=== PATIENT | female | born 1955 | race Two or more races ===

== ENCOUNTER 2019-12-05 09:54 | Outpatient (REF) | payer OTHER, SELFPAY | END 2019-12-05 09:55 | disposition home or self-care (01) | LOC: HO.LAB 09:54 | PROVIDERS: PCP Internal Medicine Geriatric Medicine; Visit Provider Internal Medicine | DX: Z20.828 Contact with and (suspected) exposure to other viral communicable diseases (principal) | CPT/HCPCS: 36415; 87635 ==

== ENCOUNTER 2019-12-19 09:42 | Outpatient (REF) | payer OTHER, SELFPAY | END 2019-12-19 09:43 | disposition home or self-care (01) | LOC: HO.LAB 09:42 | PROVIDERS: PCP Internal Medicine Geriatric Medicine; Visit Provider Internal Medicine | DX: Z20.828 Contact with and (suspected) exposure to other viral communicable diseases (principal) | CPT/HCPCS: 87635 ==

== ENCOUNTER 2019-12-21 08:53 | Outpatient (REF) | payer OTHER, SELFPAY ==
--- NOTE | 2019-12-21 09:09 | XR_ITS ---
EXAMINATION: XR knee standing BI, XR knee LT 2V CLINICAL INFORMATION: Reason for Exam M25.562 - Pain in left knee COMPARISON: None available at the time of this dictation. TECHNIQUE: Bilateral frontal standing, Left lateral and patella sunrise view. FINDINGS: BONES: No fracture or dislocation is present. JOINTS: Narrowing of joint spaces and developed osteophytes from the edges of articular surfaces suggest degenerative osteoarthritis. SOFT TISSUE: Normal IMPRESSION: Mild to moderate bilateral degenerative osteoarthritis involving symmetrically medial and lateral compartments right and left knee. No significant knee joint effusion.
--- NOTE | 2019-12-21 09:11 | CT_ITS ---
EXAMINATION: CT ABDOMEN AND PELVIS WITHOUT CONTRAST CLINICAL INFORMATION: Epigastric pain. COMPARISON: CT abdomen and pelvis 09/11/2014. TECHNIQUE: Multidetector volumetric imaging was performed from the superior aspect of the liver through the pubic symphysis. Sagittal and coronal reformatted images were obtained on the technologist's workstation. Patient refused IV contrast. This CT examination was performed using dose optimization techniques as appropriate, variously including the following: *Automated exposure control *Adjustment of mA and/or kV according to patient size (this includes techniques or standardized protocols for targeted exams where dose is matched to indication/reason for exam; i.e. extremities or head) *Use of iterative reconstruction technique DLP: 359 mGy-cm. FINDINGS: LUNG BASES: The lungs are well expanded and clear except for minimal atelectatic changes in the lingula. Heart size is normal.. LIVER, GALLBLADDER, AND BILIARY TREE: The liver is normal in size, shape, and attenuation. No focal hepatic lesion or biliary ductal dilatation is present. The gallbladder has been surgically removed. PANCREAS: The pancreas is homogeneous in density, size. There is linear calcification seen in the body of pancreas, likely vascular. SPLEEN: Unremarkable. ADRENAL GLANDS: Unremarkable. KIDNEYS AND URETERS: The kidneys are normal in size, shape, and attenuation. No hydronephrosis, hydroureter, or calculi seen. No perinephric stranding. BLADDER: Unremarkable. GASTROINTESTINAL TRACT: There is scattered stool and oral contrast seen throughout the colon without any significant distention. The small bowel loops are normal caliber. No free air or free fluid. ABDOMINAL WALL: No significant hernia is appreciated. LYMPH NODES: Normal. VASCULAR: Unremarkable. PELVIC VISCERA: No free air or free fluid seen. There is bilateral heterogeneous-appearing subcutaneous fat in both buttocks, likely from repeated insulin injections and resulting granulation tissue and calcification. OSSEOUS STRUCTURES: There are degenerative disc changes with vacuum disc phenomena at L5-S1 disc level. CT/CT abdomen pelvis wo con IMPRESSION: Mild constipation. No acute process seen. Liver evaluation is limited due to refusal of IV contrast by patient.
[2019-12-21 11:21] LABS: Blood Urea Nitrogen 15 mg/dL (9-16); Estimated Glomerular Filt Rate > 60
[2019-12-21] MEDS: Barium Sulfate Oral (Vanilla) 450 ML ORAL.SUSP 900 ML PO (11:58)
== END 2019-12-21 08:54 | disposition home or self-care (01) ==
LOC: HO.CT 08:53
PROVIDERS: PCP Internal Medicine Geriatric Medicine; Visit Provider Internal Medicine Gastroenterology
DX: R10.13 Epigastric pain (principal); M25.562 Pain in left knee; Z87.891 Personal history of nicotine dependence
CPT/HCPCS: 20610; 73560; 73565; 74176; 82565; 84520; 99204; J1040

== ENCOUNTER → 2019-12-22 10:10 | Outpatient (BNVA) | payer OTHER, SELFPAY | PROVIDERS: PCP Internal Medicine Geriatric Medicine; Visit Provider Hospitalist | DX: J45.41 Moderate persistent asthma with (acute) exacerbation (principal); J06.9 Acute upper respiratory infection, unspecified; K21.00 Gastro-esophageal reflux disease with esophagitis, without bleeding; Z79.899 Other long term (current) drug therapy | CPT/HCPCS: 99214 ==

== ENCOUNTER 2019-12-24 10:48 | Outpatient (REF) | payer OTHER, SELFPAY | END 2019-12-24 10:49 | disposition home or self-care (01) | LOC: HO.LAB 10:48 | PROVIDERS: Visit Provider Internal Medicine | DX: Z20.828 Contact with and (suspected) exposure to other viral communicable diseases (principal) | CPT/HCPCS: 87635 ==

== ENCOUNTER 2020-01-25 07:03 | Day surgery (SDC) | payer OTHER, SELFPAY ==
[2019-12-14 11:01] VITALS: BMI 23.3
[2020-01-18 19:22] VITALS: BMI 23.3
--- NOTE | 2020-01-24 09:29 | HO.ANESPROP2 ---
Documented by User: Melody Lundberg 01/24/20 09:30 HPI - Anesthesia Eval Consult details Narrative: 64yo F for Upper Endoscopy and Colonoscopy PMFSH Past Medical History Medical History Allergic rhinitis Anxiety Asthma Cervicalgia Chronic pain of left knee Depression Fibromyalgia GERD (gastroesophageal reflux disease) History of anesthesia problem History of vertigo Migraine Osteoarthritis URI (upper respiratory infection) Varicose vein of leg Family History Family History Father No problems noted. Surgical History Surgical History H/O varicose vein ligation and stripping Hx laparoscopic cholecystectomy Hx of appendectomy Hx of bilateral breast reduction surgery Hx of colonoscopy Hx of hemorrhoidectomy Hx of hysterectomy Status post right rotator cuff repair Social History Social History Alcohol intake: never Smoking Status: Former smoker Smoking Quit Date: > 35 yrs ago Use of substances other than those prescribed or required for medical reasons: No Advance Directives: Yes Advance Directives Information Provided: Yes Advance Directives on File: Yes Advance Directives Date on File: 04/03/18 Current occupational status: unemployed 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 occupation: Left Handed Meds Allergies Allergy/AdvReac Type Severity Reaction Status Date / Time ciprofloxacin [From Cipro] Allergy Intermediate HIVES/ITCHI Verified 01/25/20 07:17 NG oxycodone [Percocet] Allergy Intermediate Hives Verified 01/25/20 07:17 Penicillins Allergy Intermediate HIVES/ITCHI Verified 01/25/20 07:17 NG simvastatin [Simvastatin] Allergy Intermediate HIVES/ITCHI Verified 01/25/20 07:17 NIG vancomycin [Vancomycin] Allergy Intermediate HIVES/ITCHI Verified 01/25/20 07:17 NG latex Allergy Mild Rash Verified 01/25/20 07:17 milnacipran [From Savella] Allergy Mild Hives Verified 01/25/20 07:17 Sulfa (Sulfonamide Allergy Mild Shortness Verified 01/25/20 07:17 Antibiotics) of Breath Home Medications Medication Instructions Recorded Confirmed Type albuterol sulfate 1 vial INHALATION Q6H PRN 12/14/19 12/22/19 History albuterol sulfate 2 puff PO Q4H PRN 12/14/19 12/22/19 History budesonide 1 vial INHALATION DAILY 12/14/19 12/22/19 History cetirizine 1 tab PO DAILY 12/14/19 12/22/19 History cholecalciferol (vitamin D3) 1 tab PO DAILY 12/14/19 12/22/19 History dupilumab [Dupixent Syringe] 130 mg SUBCUT QWEEK 12/14/19 12/22/19 History epinephrine [EpiPen 2-Jeremi] IM DIRECTED 12/14/19 12/22/19 History esomeprazole magnesium 2 cap PO DAILY 12/14/19 12/22/19 History hydrochlorothiazide 1 cap PO DAILY 12/14/19 12/22/19 History ketotifen fumarate 1 drp OPHTHALMIC (EYE) BID PRN 12/14/19 12/22/19 History levalbuterol tartrate 2 puff INHALATION Q4H PRN 12/14/19 12/22/19 History lorazepam 1 tab PO BID 12/14/19 12/22/19 History metronidazole 1 tab PO TID 12/14/19 12/22/19 History mometasone-formoterol [Dulera] 2 puff INHALATION BID 12/14/19 12/22/19 History montelukast 1 tab PO DAILY 12/14/19 12/22/19 History sucralfate 10 ml PO BID 12/14/19 12/22/19 History sumatriptan succinate [Imitrex] 50 mg PO Q2-4H PRN 12/14/19 12/22/19 History tiotropium bromide [Spiriva 2 puff PO DAILY 12/14/19 12/22/19 History Respimat] umeclidinium [Incruse Ellipta] INHALATION 12/14/19 12/22/19 History valsartan 1 tab PO BID 12/14/19 12/22/19 History Exam Exam Date and Time: January 24, 2020 09 Height,Weight and Vital Signs: Height 5 ft 3 in Weight 59.874 kg Assessment and Plan Assessment Anesthesia Assessment: Chart Reviewed Documented by User: Mecca Harrington 01/25/20 07:21 [facility] Past Medical History Medical History Allergic rhinitis Anxiety Asthma Cervicalgia Chronic pain of left knee Depression Fibromyalgia GERD (gastroesophageal reflux disease) History of anesthesia problem History of vertigo Migraine Osteoarthritis URI (upper respiratory infection) Varicose vein of leg Family History Family History Father No problems noted. Surgical History Surgical History H/O varicose vein ligation and stripping Hx laparoscopic cholecystectomy Hx of appendectomy Hx of bilateral breast reduction surgery Hx of colonoscopy Hx of hemorrhoidectomy Hx of hysterectomy Status post right rotator cuff repair Social History Social History Alcohol intake: never Smoking Status: Former smoker Smoking Quit Date: > 35 yrs ago Use of substances other than those prescribed or required for medical reasons: No Advance Directives: Yes Advance Directives Information Provided: Yes Advance Directives on File: Yes Advance Directives Date on File: 04/03/18 Current occupational status: unemployed 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 occupation: Left Handed Meds Allergies Allergy/AdvReac Type Severity Reaction Status Date / Time ciprofloxacin [From Cipro] Allergy Intermediate HIVES/ITCHI Verified 01/25/20 07:17 NG oxycodone [Percocet] Allergy Intermediate Hives Verified 01/25/20 07:17 Penicillins Allergy Intermediate HIVES/ITCHI Verified 01/25/20 07:17 NG simvastatin [Simvastatin] Allergy Intermediate HIVES/ITCHI Verified 01/25/20 07:17 NIG vancomycin [Vancomycin] Allergy Intermediate HIVES/ITCHI Verified 01/25/20 07:17 NG latex Allergy Mild Rash Verified 01/25/20 07:17 milnacipran [From Savella] Allergy Mild Hives Verified 01/25/20 07:17 Sulfa (Sulfonamide Allergy Mild Shortness Verified 01/25/20 07:17 Antibiotics) of Breath Home Medications Medication Instructions Recorded Confirmed Type albuterol sulfate 1 vial INHALATION Q6H PRN 12/14/19 12/22/19 History albuterol sulfate 2 puff PO Q4H PRN 12/14/19 12/22/19 History budesonide 1 vial INHALATION DAILY 12/14/19 12/22/19 History cetirizine 1 tab PO DAILY 12/14/19 12/22/19 History cholecalciferol (vitamin D3) 1 tab PO DAILY 12/14/19 12/22/19 History dupilumab [Dupixent Syringe] 130 mg SUBCUT QWEEK 12/14/19 12/22/19 History epinephrine [EpiPen 2-Jeremi] IM DIRECTED 12/14/19 12/22/19 History esomeprazole magnesium 2 cap PO DAILY 12/14/19 12/22/19 History hydrochlorothiazide 1 cap PO DAILY 12/14/19 12/22/19 History ketotifen fumarate 1 drp OPHTHALMIC (EYE) BID PRN 12/14/19 12/22/19 History levalbuterol tartrate 2 puff INHALATION Q4H PRN 12/14/19 12/22/19 History lorazepam 1 tab PO BID 12/14/19 12/22/19 History metronidazole 1 tab PO TID 12/14/19 12/22/19 History mometasone-formoterol [Dulera] 2 puff INHALATION BID 12/14/19 12/22/19 History montelukast 1 tab PO DAILY 12/14/19 12/22/19 History sucralfate 10 ml PO BID 12/14/19 12/22/19 History sumatriptan succinate [Imitrex] 50 mg PO Q2-4H PRN 12/14/19 12/22/19 History tiotropium bromide [Spiriva 2 puff PO DAILY 12/14/19 12/22/19 History Respimat] umeclidinium [Incruse Ellipta] INHALATION 12/14/19 12/22/19 History valsartan 1 tab PO BID 12/14/19 12/22/19 History
[2020-01-25 07:21] VITALS: BP 113/73; PULSE 79; RESP 16; TEMP 36.8; O2SAT 96
--- NOTE | 2020-01-25 07:39 | P.CONAN_ITS ---
[facility] Past Medical History Medical History Allergic rhinitis Anxiety Asthma Cervicalgia Chronic pain of left knee Depression Fibromyalgia GERD (gastroesophageal reflux disease) History of anesthesia problem History of vertigo Migraine Osteoarthritis URI (upper respiratory infection) Varicose vein of leg Family History Family History Father No problems noted. Surgical History Surgical History H/O varicose vein ligation and stripping Hx laparoscopic cholecystectomy Hx of appendectomy Hx of bilateral breast reduction surgery Hx of colonoscopy Hx of hemorrhoidectomy Hx of hysterectomy Status post right rotator cuff repair Social History Social History Alcohol intake: never Smoking Status: Former smoker Smoking Quit Date: > 35 yrs ago Use of substances other than those prescribed or required for medical reasons: No Advance Directives: Yes Advance Directives Information Provided: Yes Advance Directives on File: Yes Advance Directives Date on File: 04/03/18 Current occupational status: unemployed Current occupation: Left [employer]ed Meds Allergies Allergy/AdvReac Type Severity Reaction Status Date / Time ciprofloxacin [From Cipro] Allergy Intermediate HIVES/ITCHI Verified 01/25/20 07:17 NG oxycodone [Percocet] Allergy Intermediate Hives Verified 01/25/20 07:17 Penicillins Allergy Intermediate HIVES/ITCHI Verified 01/25/20 07:17 NG simvastatin [Simvastatin] Allergy Intermediate HIVES/ITCHI Verified 01/25/20 07:17 NIG vancomycin [Vancomycin] Allergy Intermediate HIVES/ITCHI Verified 01/25/20 07:17 NG latex Allergy Mild Rash Verified 01/25/20 07:17 milnacipran [From Savella] Allergy Mild Hives Verified 01/25/20 07:17 Sulfa (Sulfonamide Allergy Mild Shortness Verified 01/25/20 07:17 Antibiotics) of Breath Home Medications Medication Instructions Recorded Confirmed Type albuterol sulfate 1 vial INHALATION Q6H PRN 12/14/19 12/22/19 History albuterol sulfate 2 puff PO Q4H PRN 12/14/19 12/22/19 History budesonide 1 vial INHALATION DAILY 12/14/19 12/22/19 History cetirizine 1 tab PO DAILY 12/14/19 12/22/19 History cholecalciferol (vitamin D3) 1 tab PO DAILY 12/14/19 12/22/19 History dupilumab [Dupixent Syringe] 130 mg SUBCUT QWEEK 12/14/19 12/22/19 History epinephrine [EpiPen 2-Jeremi] IM DIRECTED 12/14/19 12/22/19 History esomeprazole magnesium 2 cap PO DAILY 12/14/19 12/22/19 History hydrochlorothiazide 1 cap PO DAILY 12/14/19 12/22/19 History ketotifen fumarate 1 drp OPHTHALMIC (EYE) BID PRN 12/14/19 12/22/19 History levalbuterol tartrate 2 puff INHALATION Q4H PRN 12/14/19 12/22/19 History lorazepam 1 tab PO BID 12/14/19 12/22/19 History metronidazole 1 tab PO TID 12/14/19 12/22/19 History mometasone-formoterol [Dulera] 2 puff INHALATION BID 12/14/19 12/22/19 History montelukast 1 tab PO DAILY 12/14/19 12/22/19 History sucralfate 10 ml PO BID 12/14/19 12/22/19 History sumatriptan succinate [Imitrex] 50 mg PO Q2-4H PRN 12/14/19 12/22/19 History tiotropium bromide [Spiriva 2 puff PO DAILY 12/14/19 12/22/19 History Respimat] umeclidinium [Incruse Ellipta] INHALATION 12/14/19 12/22/19 History valsartan 1 tab PO BID 12/14/19 12/22/19 History Exam Exam Date and Time: January 25, 2020 0739 Height,Weight and Vital Signs: Height 5 ft 3 in Weight 59.874 kg Airway Mallampati Class: II TM Dist: >3cm Neck ROM: Full Heart: RRR Lungs: CTA
--- NOTE | 2020-01-25 07:40 | P.CONAN_ITS ---
[facility] Past Medical History Medical History Allergic rhinitis Anxiety Asthma Cervicalgia Chronic pain of left knee Depression Fibromyalgia GERD (gastroesophageal reflux disease) History of anesthesia problem History of vertigo Migraine Osteoarthritis URI (upper respiratory infection) Varicose vein of leg Family History Family History Father No problems noted. Surgical History Surgical History H/O varicose vein ligation and stripping Hx laparoscopic cholecystectomy Hx of appendectomy Hx of bilateral breast reduction surgery Hx of colonoscopy Hx of hemorrhoidectomy Hx of hysterectomy Status post right rotator cuff repair Social History Social History Alcohol intake: never Smoking Status: Former smoker Smoking Quit Date: > 35 yrs ago Use of substances other than those prescribed or required for medical reasons: No Advance Directives: Yes Advance Directives Information Provided: Yes Advance Directives on File: Yes Advance Directives Date on File: 04/03/18 Current occupational status: unemployed Current occupation: Left [employer]ed Meds Allergies Allergy/AdvReac Type Severity Reaction Status Date / Time ciprofloxacin [From Cipro] Allergy Intermediate HIVES/ITCHI Verified 01/25/20 07:17 NG oxycodone [Percocet] Allergy Intermediate Hives Verified 01/25/20 07:17 Penicillins Allergy Intermediate HIVES/ITCHI Verified 01/25/20 07:17 NG simvastatin [Simvastatin] Allergy Intermediate HIVES/ITCHI Verified 01/25/20 07:17 NIG vancomycin [Vancomycin] Allergy Intermediate HIVES/ITCHI Verified 01/25/20 07:17 NG latex Allergy Mild Rash Verified 01/25/20 07:17 milnacipran [From Savella] Allergy Mild Hives Verified 01/25/20 07:17 Sulfa (Sulfonamide Allergy Mild Shortness Verified 01/25/20 07:17 Antibiotics) of Breath Home Medications Medication Instructions Recorded Confirmed Type albuterol sulfate 1 vial INHALATION Q6H PRN 12/14/19 12/22/19 History albuterol sulfate 2 puff PO Q4H PRN 12/14/19 12/22/19 History budesonide 1 vial INHALATION DAILY 12/14/19 12/22/19 History cetirizine 1 tab PO DAILY 12/14/19 12/22/19 History cholecalciferol (vitamin D3) 1 tab PO DAILY 12/14/19 12/22/19 History dupilumab [Dupixent Syringe] 130 mg SUBCUT QWEEK 12/14/19 12/22/19 History epinephrine [EpiPen 2-Jeremi] IM DIRECTED 12/14/19 12/22/19 History esomeprazole magnesium 2 cap PO DAILY 12/14/19 12/22/19 History hydrochlorothiazide 1 cap PO DAILY 12/14/19 12/22/19 History ketotifen fumarate 1 drp OPHTHALMIC (EYE) BID PRN 12/14/19 12/22/19 History levalbuterol tartrate 2 puff INHALATION Q4H PRN 12/14/19 12/22/19 History lorazepam 1 tab PO BID 12/14/19 12/22/19 History metronidazole 1 tab PO TID 12/14/19 12/22/19 History mometasone-formoterol [Dulera] 2 puff INHALATION BID 12/14/19 12/22/19 History montelukast 1 tab PO DAILY 12/14/19 12/22/19 History sucralfate 10 ml PO BID 12/14/19 12/22/19 History sumatriptan succinate [Imitrex] 50 mg PO Q2-4H PRN 12/14/19 12/22/19 History tiotropium bromide [Spiriva 2 puff PO DAILY 12/14/19 12/22/19 History Respimat] umeclidinium [Incruse Ellipta] INHALATION 12/14/19 12/22/19 History valsartan 1 tab PO BID 12/14/19 12/22/19 History Exam Exam Date and Time: January 25, 2020 0740 Height,Weight and Vital Signs: Height 5 ft 3 in Weight 59.874 kg Assessment and Plan Assessment Anesthesia Assessment: Anesthesia Plan Discussed and Chart Reviewed Final Anesthetic Review NPO: Yes ASA Class: II Final Preanesthetic Review: No Changes in Pt Med Stat, Meds/Allgs Chart Reviewed, Consent Obtained/Reviewed and Anes Risks/Benef Reviewed Patient Risk: Low Procedure Risk: Low Anesthetic Plan Anesthetic Plan: MAC: Disposition: Standard PACU
[2020-01-25] MEDS: Lactated Ringers 1,000 ML 100 ML IVCONT (07:48)
--- NOTE | 2020-01-25 08:17 | MHC.SHP ---
Pre-Procedural Eval Section B Chief Complaint: EPIGASTRIC PAIN,DYSPHAGIA,SCREENING Relevant Social History: None Present Medications: see Short Stay Collaborative assessment Medical History: Significant History (Allergic rhinitis Anxiety Asthma Cervicalgia Chronic pain of left knee Depression Fibromyalgia GERD (gastroesophageal reflux disease) History of anesthesia problem History of vertigo Migraine Osteoarthritis URI (upper respiratory infection) Varicose vein of leg) History of Previous Operations: Relevant previous surgery/procedure and date(s) Allergies: Allergies Allergy/AdvReac Type Severity Reaction Status Date / Time ciprofloxacin [From Cipro] Allergy Intermediate HIVES/ITCHI Verified 01/25/20 07:17 NG oxycodone [Percocet] Allergy Intermediate Hives Verified 01/25/20 07:17 Penicillins Allergy Intermediate HIVES/ITCHI Verified 01/25/20 07:17 NG simvastatin [Simvastatin] Allergy Intermediate HIVES/ITCHI Verified 01/25/20 07:17 NIG vancomycin [Vancomycin] Allergy Intermediate HIVES/ITCHI Verified 01/25/20 07:17 NG latex Allergy Mild Rash Verified 01/25/20 07:17 milnacipran [From Savella] Allergy Mild Hives Verified 01/25/20 07:17 Sulfa (Sulfonamide Allergy Mild Shortness Verified 01/25/20 07:17 Antibiotics) of Breath Review of Systems Sugical H&P ROS: Negative: Constitution, Cardiovascular, Respiratory, Neurological, Psychiatric, Hem-Onc, Allergic/Immunologic, Gastrointestinal, Genitourinary, Musculoskeletal, Integumentary, Endocrine and Eyes/Ears/Nose/Throat Exam Surgical H&P Exam: Normal: HEENT, Normal: Heart, Normal: Lungs, Normal: Extremities, Normal: Abdomen, Normal: Skin and Normal: Neurological Plan Diagnosis/Plan: Unchanged Patient has been examined and remains a candidate for the planned procedure
--- NOTE | 2020-01-25 08:56 | P.OP_ITS ---
Operative Note Operative Note Date of Service: 01/25/20 Narrative: Operative Information Procedure Description: EGD, Colonoscopy FLEXIBLE TRANSORAL UPPER GASTROINTESTINAL ENDOSCOPY AND COLONOSCOPY PROCEDURE NOTE UPPER ENDOSCOPY Consent: Indications for the procedure and potential complications of bleeding, perforation, reaction to medications and missed diagnosis were discussed with the patient and informed consent was obtained. Instrument: Olympus GIF H 190 J mid size upper endoscope Monitoring: Vital signs and clinical assessment, continuous EKG monitoring, Pulse oximetry, Carbon Dioxide monitoring and blood pressure monitoring were done throughout the procedure. Procedure: The patient was placed in the left lateral decubitis position and pre-procedure medications were administered and a bite block was placed. The endoscope was inserted into the mouth and advanced under direct vision to the third part of duodenum. A careful inspection was made as the upper endoscope was withdrawn including a retroflexed examination of the proximal stomach; Findings and interventions are described below. Findings: Larynx:normal Esophagus: GE junction at 37 cm, diaphragm hiatus at 37 cm, normal mucosa bx taken Stomach: Nodular mucosa with patchy erythem. Biopsies were obtained. Grade 2 flap valve on retroflexed examination of the cardia. Duodenum: Normal bulb and descending duodenum, bx taken Intervention: Biopsies as noted above COLONOSCOPY Instrument: Olympus variable stiffness pediatric scope 190L Colonoscopy Monitoring: Vital signs and clinical assessment, continuous EKG monitoring, Pulse oximetry, Carbon Dioxide monitoring and blood pressure monitoring were done throughout the procedure. Colon withdrawal time was 13 minutes. Procedure: The patient was placed in the left lateral decubitis position and pre-procedure medications were administered. After a digital rectal examination of the ano-rectum, the video colonoscope was inserted into the rectum and advanced through the colon to the cecum/TI. The colonoscope was slowly withdrawn in a retrograde panoramic fashion and the colon mucosa was carefully examined including a retroflexed view of the rectum. Findings and interventions are described below. Procedure Difficulty: Findings: Terminal Ileum-normal Cecum:normal Ascending Colon: normal Transverse Colon -normal Descending Colon:normal Sigmoid Colon: normal Rectum: Retroflexion with small sized internal hemorrhoids, grade I Anorectum - normal Colon preparation: [place] Bowel Preparation Scale Right colon; 3 Transverse colon: 3 Left colon; 3 (0 = Unprepared colon segment with mucosa not seen due to solid stool that cannot be cleared. 1 = Portion of mucosa of the colon segment seen, but other areas of the colon segment not well seen due to staining, residual stool and/or opaque liquid. 2 = Minor amount of residual staining, small fragments of stool and/or opaque liquid, but mucosa of colon segment seen well. 3 = Entire mucosa of colon segment seen well with no residual staining, small fragments of stool or opaque liquid) Impression and Post Procedure Diagnosis: Endoscopy Findings: gastritis Colonoscopy Findings: internal hemorrhoids Plan: Await Pathology results Repeat Colonoscopy in 10 years or earlier if clinically indicated High fiber diet leaflet avoid straining at stool, epsom salts and sitz bath prn, anusol supps or cream prn overall she said she felt well before procedure and said she no longer had dysphagia or abdominal pain. Above findings were reviewed with the patient and relevant handouts were provided if indicated.
--- NOTE | 2020-01-25 08:56 | PM.OP ---
Brief Operative Note Date of Service: 01/25/20 Pre-op diagnosis: dysphagia and colon screen Post-op diagnosis: same Procedure: see op note Surgeon: Diana Boss MD Anesthesia: MAC Estimated blood loss (mL): 0 Condition: stable Disposition: PACU
[2020-01-25 09:02] VITALS: BP 102/59; PULSE 85; RESP 14; TEMP 37.1; O2SAT 100
[2020-01-25 09:17] VITALS: BP 102/65; PULSE 69; RESP 20; TEMP 37.1; O2SAT 98
== END 2020-01-25 09:53 | disposition home or self-care (01) ==
PROVIDERS: PCP Internal Medicine Geriatric Medicine; Visit Provider Internal Medicine Gastroenterology
PROC: (CPT 43239; principal; 2020-01-25 08:30)
DX: Z12.11 Encounter for screening for malignant neoplasm of colon (principal); K64.0 First degree hemorrhoids; K29.50 Unspecified chronic gastritis without bleeding; B96.81 Helicobacter pylori [H. pylori] as the cause of diseases classified elsewhere; K21.9 Gastro-esophageal reflux disease without esophagitis; K44.9 Diaphragmatic hernia without obstruction or gangrene; J45.909 Unspecified asthma, uncomplicated; Z79.51 Long term (current) use of inhaled steroids; Z79.899 Other long term (current) drug therapy; Z90.49 Acquired absence of other specified parts of digestive tract; Z88.0 Allergy status to penicillin; Z88.1 Allergy status to other antibiotic agents; Z88.2 Allergy status to sulfonamides; Z88.8 Allergy status to other drugs, medicaments and biological substances; Z91.040 Latex allergy status
CPT/HCPCS: 43239; G0121; 88305; 88342

== ENCOUNTER 2020-01-27 11:47 | Outpatient (REF) | payer OTHER, SELFPAY | END 2020-01-27 11:48 | disposition home or self-care (01) | LOC: HO.LAB 11:47 | PROVIDERS: PCP Internal Medicine Geriatric Medicine; Visit Provider Internal Medicine | DX: Z20.828 Contact with and (suspected) exposure to other viral communicable diseases (principal) | CPT/HCPCS: C9803; U0003 ==

== ENCOUNTER 2020-02-01 11:00 | Outpatient (RCR) | payer OTHER, SELFPAY ==
--- NOTE | 2020-01-23 13:03 | MHC.PT.EP ---
[facility] [place] [facility] [address] Stella Somers [address] [phone] F: [phone] F: [phone] F: [phone] F: [phone] Physical Therapy Plan of Care Date of Evaluation: 01/23/20 Date of Surgery: Diagnosis: left knee pain Assessment: This is a 64 y/o female presenting to skilled PT for left knee OA. Assessment reveals decreased strength, impaired knee AROM/PROM (decreased knee flexion AROM and knee extension PROM/AROM0), impaired hip AROM, impaired ankle ROM, gait deviations, tenderness to palpation, decreased patella mobility, impaired quad control, and pain. Due to her impairments, Pt w/ difficulty: walking, standing, squatting, lifting, negotiating stairs, and sleeping. Pt will benefit from skilled PT services 2x/week for 4 weeks in order to reduce impairments, improve limitations, and implement a comprehensive HEP. Frequency and Duration: The patient will be seen 2x/week for 4 weeks, minimum of 38 minutes. Short Term Goals: -In 2 weeks, Pt to restore L knee AROM and PROM to WNL. -In 3 weeks, Pt to improve HS length by at least 10 degrees. [employer] Tech Goals: -In 4 weeks, Pt to demonstrate I w/ HEP. -In 4 weeks, Pt to ascend/descend 1 flight of stairs w/ reports of <3/10 knee pain. -In 4 weeks, Pt to improve strength grades to at least 4-/5. Treatment Plan: Modalities to reduce pain, spasms and effusion. Manual therapy to restore motion and function. Therapeutic exercise to improve strength and flexibility. Neuromuscular re-education for posture and balance. Therapeutic activities to return to functional activities of daily living. Please sign and return to therapist. Thank you for your referral.
--- NOTE | 2020-02-07 14:47 | MHC.PT.DC ---
[facility] [place] Office [place] [facility] [place] Office [address] Stella Somers [address] [phone] F: [phone] F: [phone] F: [phone] F: [phone] Physical Therapy Discharge Report Diagnosis: left knee pain Date of Surgery: Date of Evaluation: 01/23/20 Date of Discharge: 02/07/20 Treatments to Date: 2 Cancellations to Date: 0 No Shows to Date: 0 Discharge Status: Patient Elected to Stop Discharge Summary: Pt elected to stop PT due to COVID pandemic becoming worse. D/C at this time. Electronically signed by: Mechelle Flaherty PT, DPT Please sign and return to therapist. Thank you for your referral.
== END 2020-02-07 14:49 | disposition other institution (70) ==
LOC: HO.PT 11:00
PROVIDERS: PCP Internal Medicine Geriatric Medicine; Visit Provider Orthopaedic Surgery
DX: M17.12 Unilateral primary osteoarthritis, left knee (principal)
CPT/HCPCS: 97110; 97161

== ENCOUNTER 2020-03-05 15:43 | Outpatient (REF) | payer MEDICARE, SELFPAY ==
--- NOTE | 2020-03-05 15:48 | MM_ITS ---
EXAMINATION: MM SCREENING DIGITAL BREAST TOMOSYNTHESIS, BILATERAL CLINICAL INFORMATION: Screening. Asymptomatic. Remote history breast reduction mammoplasty 1994. The lifetime risk of breast cancer based on the Tyrer-Cuzick Model is 3%. COMPARISON: Mammography: 07/23/2018, 05/04/2017, 04/16/2016 TECHNIQUE: Digital breast tomosynthesis is performed in both the craniocaudal and mediolateral oblique views along with computer-aided detection (CAD). Synthesized 2D images are generated from the tomosynthesis. Additional left MLO view is provided. FINDINGS: There are scattered areas of fibroglandular density (ACR BI-RADS breast composition Category b). There are no significant masses, abnormal calcifications, or other abnormalities. Axillary nodes are similar to prior studies. The skin contours are smooth. No significant changes. MM/MM tomosynthesis screening BI IMPRESSION: No mammographic evidence of malignancy. ASSESSMENT: BI-RADS 2: Benign RECOMMENDATION: Routine annual mammography screening. This patient's information was entered into a reminder system with a target due date for their next mammogram.
== END 2020-03-05 15:44 | disposition home or self-care (01) ==
LOC: HO.MAMMO 15:43
PROVIDERS: PCP Internal Medicine Geriatric Medicine; Visit Provider Internal Medicine Geriatric Medicine
DX: Z12.31 Encounter for screening mammogram for malignant neoplasm of breast (principal)
CPT/HCPCS: 77063; 77067

== ENCOUNTER → 2020-03-27 09:15 | Outpatient (BNVA) | payer MEDICARE, SELFPAY | PROVIDERS: PCP Internal Medicine Geriatric Medicine; Visit Provider Hospitalist | DX: Z13.89 Encounter for screening for other disorder (principal) | CPT/HCPCS: Q3014 ==

== ENCOUNTER → 2020-04-19 09:49 | Outpatient (BNVA) | payer MEDICARE, SELFPAY | PROVIDERS: PCP Internal Medicine Geriatric Medicine; Visit Provider Hospitalist | DX: Z76.89 Persons encountering health services in other specified circumstances (principal) | CPT/HCPCS: Q3014 ==

== ENCOUNTER → 2020-04-20 11:15 | Outpatient (BNVA) | payer MEDICARE, SELFPAY | PROVIDERS: PCP Internal Medicine Geriatric Medicine; Visit Provider Internal Medicine Gastroenterology | CPT/HCPCS: Q3014 ==

== ENCOUNTER 2020-05-08 09:23 | Outpatient (REF) | payer MEDICARE, SELFPAY ==
--- NOTE | ~2020-05-08 | XR_ITS ---
EXAMINATION: XR SHOULDER, LEFT CLINICAL INFORMATION: Left shoulder pain. COMPARISON: None TECHNIQUE: AP external rotation, Grashey, scapular Y, and axillary views of the left shoulder. FINDINGS: Minimal to mild glenohumeral and acromioclavicular degenerative joint changes are seen. Mild deformity is seen at the greater tuberosity. No acute fracture or dislocation is seen. The soft tissues are unremarkable. XR/XR shoulder LT min 2V IMPRESSION: Minimal to mild degenerative changes. Mild deformity at the greater tuberosity does not appear acute. This could be degenerative in nature secondary to L5 deformity. Correlate with possible history of anterior glenohumeral dislocation.
--- NOTE | ~2020-05-08 | XR_ITS ---
EXAMINATION: XR SHOULDER, RIGHT CLINICAL INFORMATION: Right shoulder pain. COMPARISON: None TECHNIQUE: AP external rotation, Grashey, scapular Y, and axillary views of the right shoulder. FINDINGS: 3 bone anchor devices are seen in place. Mild right glenohumeral and acromioclavicular degenerative joint changes are seen. Mild deformity seen in the greater tuberosity. No acute fracture or dislocation is seen. The soft tissues are unremarkable. XR/XR shoulder RT min 2V IMPRESSION: 1. [address] appear intact. One is seen overlying the region of the rotator cuff. Correlation with expected location is recommended as a dislodged anchor cannot be excluded. 2. Mild degenerative joint changes. Mild deformity along the greater tuberosity could be degenerative in nature or secondary to old injury/Hill-Sachs deformity. Correlate with possible history of anterior glenohumeral dislocation.
== END 2020-05-08 09:24 | disposition home or self-care (01) ==
LOC: HO.XRAY 09:23
PROVIDERS: PCP Internal Medicine Geriatric Medicine; Visit Provider Internal Medicine Geriatric Medicine
DX: M25.511 Pain in right shoulder (principal); M25.512 Pain in left shoulder; G89.29 Other chronic pain
CPT/HCPCS: 73030

== ENCOUNTER 2020-05-17 08:45 | Outpatient (REF) | payer MEDICARE, SELFPAY ==
[2020-05-19 14:36] LABS: H Pylori Breath Test NOT DETECTED (NOT DETECTED)
== END 2020-05-17 08:46 | disposition home or self-care (01) ==
LOC: HO.LNP 08:45
PROVIDERS: PCP Internal Medicine Geriatric Medicine; Visit Provider Internal Medicine Gastroenterology
DX: A04.8 Other specified bacterial intestinal infections (principal)
CPT/HCPCS: 83013; 99211

== ENCOUNTER → 2020-05-21 15:14 | Outpatient (BNVA) | payer MEDICARE, SELFPAY | PROVIDERS: PCP Internal Medicine Geriatric Medicine; Visit Provider Hospitalist | DX: Z13.89 Encounter for screening for other disorder (principal) | CPT/HCPCS: Q3014 ==

== ENCOUNTER 2020-07-10 13:36 | Outpatient (REF) | payer MEDICARE, SELFPAY ==
[2020-07-10 14:48] LABS: MANUAL DIFF FLAG NO
[2020-07-10 14:52] LABS: Basophils Absolute Auto 0.1 X10*3/uL (0.0-0.2); Basophils Percent Auto 0.5 % (0-2); Eosinophils Absolute Auto 0.1 X10*3/uL (0.0-0.4); Eosinophils Percent Auto 1.2 % (0-4); Hematocrit 39.9 % (37-47); Hemoglobin 12.6 g/dl (12.0-16.0); Imm Gran Abs Auto 0.04 X10*3/uL (0.00-0.03); Imm Gran Pct Auto 0.4 % (0.0-0.4); Lymphocytes Absolute Auto 3.3 X10*3/uL (1.2-4.9); Lymphocytes Percent Auto 34.4 % (20-40); Mean Corpuscular HGB Conc 31.6 g/dl (31.0-35.0); Mean Corpuscular Hemoglobin 25.5 pg (27.0-33.0); Mean Corpuscular Volume 80.6 fL (80-98); Mean Platelet Volume 10.2 fL (9.4-12.3); Monocytes Absolute Auto 0.7 X10*3/uL (0.1-1.2); Monocytes Percent Auto 7.1 % (2-11); Neutrophils Absolute Auto 5.5 X10*3/uL (2.0-8.3); Neutrophils Percent Auto 56.4 % (45-73); Platelet Count 223 X10*3/uL (160-400); Red Blood Count 4.95 X10*6/uL (4.20-5.50); Red Cell Distribution Width 13.7 % (11.0-16.0); White Blood Count 9.7 X10*3/uL (4.8-10.8)
[2020-07-10 15:05] LABS: D Dimer < 200 NG/ML
[2020-07-10 15:15] LABS: Anion Gap 13 (12-20); Blood Urea Nitrogen 17 mg/dL (9-16); Calcium 9.6 mg/dL (8.4-10.2); Carbon Dioxide 32 mmol/L (22-29); Chloride 103 mmol/L (96-108); Estimated Glomerular Filt Rate > 60; Glucose Random 91 mg/dL (60-115); Potassium 3.5 mmol/L (3.3-5.1); Sodium 144 mmol/L (135-145)
[2020-07-10 15:58] LABS: Erythrocyte Sedimentation Rate 20 MM/HR (0-20)
== END 2020-07-10 13:37 | disposition home or self-care (01) ==
LOC: HO.LAB 13:36
PROVIDERS: PCP Internal Medicine Geriatric Medicine; Visit Provider Hospitalist
DX: J45.51 Severe persistent asthma with (acute) exacerbation (principal); R00.0 Tachycardia, unspecified; R06.02 Shortness of breath
CPT/HCPCS: 36415; 80048; 85025; 85379; 85652; 96372; 99212; J2930

== ENCOUNTER 2020-07-19 12:03 | Outpatient (REF) | payer MEDICARE, SELFPAY ==
--- NOTE | ~2020-07-19 | XR_ITS ---
EXAMINATION: XR RIBS, LEFT CLINICAL INFORMATION: Left sided pain COMPARISON: Previous chest x-ray March 2018 TECHNIQUE: 3 views of the left ribs and one view of the chest were obtained. FINDINGS: The cardiac and mediastinal contours are normal. There is biapical pleural thickening. The lungs are otherwise clear. There is no pleural effusion or pneumothorax. No left rib fracture is seen. There are postsurgical changes to the right shoulder. XR/XR ribs LT min 3V w CXR1V IMPRESSION: No evidence for acute disease in the chest. No left rib fracture seen.
--- NOTE | ~2020-07-19 | XR_ITS ---
EXAMINATION: LEFT SHOULDER AND HUMERUS X-RAYS CLINICAL INFORMATION: Pain COMPARISON: Previous left shoulder x-ray April 2020 TECHNIQUE: 4 views of the left shoulder and 2 views of the left humerus FINDINGS: Bone alignment is normal. No acute fracture or dislocation is seen. There is deformity of the left greater tuberosity questionable for changes related to old trauma The glenohumeral joint is normal. There is arthritis at the acromioclavicular joint. The elbow joint is normal. Soft tissues are normal. XR/XR humerus LT IMPRESSION: No acute fracture or dislocation. Arthritis at the acromioclavicular joint. Question old trauma to the greater tuberosity. No change from April 2020 exam.
--- NOTE | ~2020-07-19 | XR_ITS ---
EXAMINATION: LEFT SHOULDER AND HUMERUS X-RAYS CLINICAL INFORMATION: Pain COMPARISON: Previous left shoulder x-ray April 2020 TECHNIQUE: 4 views of the left shoulder and 2 views of the left humerus FINDINGS: Bone alignment is normal. No acute fracture or dislocation is seen. There is deformity of the left greater tuberosity questionable for changes related to old trauma The glenohumeral joint is normal. There is arthritis at the acromioclavicular joint. The elbow joint is normal. Soft tissues are normal. XR/XR shoulder LT min 2V IMPRESSION: No acute fracture or dislocation. Arthritis at the acromioclavicular joint. Question old trauma to the greater tuberosity. No change from April 2020 exam.
== END 2020-07-19 12:04 | disposition home or self-care (01) ==
LOC: HO.XRAY 12:03
PROVIDERS: Absent Provider Internal Medicine Geriatric Medicine; PCP Internal Medicine Geriatric Medicine; Visit Provider Internal Medicine
DX: R07.81 Pleurodynia (principal); M79.622 Pain in left upper arm; M25.512 Pain in left shoulder
CPT/HCPCS: 71101; 73030; 73060

== ENCOUNTER 2020-07-23 11:47 | Outpatient (REF) | payer MEDICARE, SELFPAY ==
--- NOTE | ~2020-07-23 | XR_ITS ---
EXAMINATION: XR SHOULDER, RIGHT CLINICAL INFORMATION: Right shoulder pain. COMPARISON: Right shoulder radiographs dated 05/08/2020. TECHNIQUE: AP internal rotation, AP external rotation, and axillary views of the right shoulder. FINDINGS: Surgical anchor is redemonstrated consistent with rotator cuff tendon repair. Small acromioclavicular marginal osteophytes. Moderate glenohumeral joint space narrowing with marginal osteophytes, unchanged. No new lytic or blastic osseous lesion. No abnormal soft tissue calcification. XR/XR shoulder RT min 2V IMPRESSION: 1. 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 2. Surgical anchors redemonstrated.
== END 2020-07-23 11:48 | disposition home or self-care (01) ==
LOC: HO.HOSX 11:47
PROVIDERS: Visit Provider Orthopaedic Surgery
DX: M25.512 Pain in left shoulder (principal); M25.511 Pain in right shoulder; Z91.81 History of falling; Z88.5 Allergy status to narcotic agent; Z88.0 Allergy status to penicillin; Z88.2 Allergy status to sulfonamides; Z88.8 Allergy status to other drugs, medicaments and biological substances; Z88.1 Allergy status to other antibiotic agents; Z91.040 Latex allergy status; Z98.890 Other specified postprocedural states
CPT/HCPCS: 20610; 73030; 99212; J1100

== ENCOUNTER → 2020-08-14 09:13 | Outpatient (BNVA) | payer MEDICARE, SELFPAY | PROVIDERS: PCP Internal Medicine Geriatric Medicine; Visit Provider Internal Medicine Gastroenterology | CPT/HCPCS: Q3014 ==

== ENCOUNTER 2020-08-21 10:15 | Outpatient (REF) | payer MEDICARE, SELFPAY ==
[2020-08-21 11:49] LABS: MANUAL DIFF FLAG NO
[2020-08-21 12:00] LABS: Basophils Absolute Auto 0.1 X10*3/uL (0.0-0.2); Basophils Percent Auto 0.6 % (0-2); Eosinophils Absolute Auto 0.2 X10*3/uL (0.0-0.4); Eosinophils Percent Auto 1.8 % (0-4); Hematocrit 39.6 % (37-47); Hemoglobin 12.7 g/dl (12.0-16.0); Imm Gran Abs Auto 0.03 X10*3/uL (0.00-0.03); Imm Gran Pct Auto 0.4 % (0.0-0.4); Lymphocytes Absolute Auto 2.9 X10*3/uL (1.2-4.9); Lymphocytes Percent Auto 33.8 % (20-40); Mean Corpuscular HGB Conc 32.1 g/dl (31.0-35.0); Mean Corpuscular Hemoglobin 25.9 pg (27.0-33.0); Mean Corpuscular Volume 80.7 fL (80-98); Mean Platelet Volume 10.1 fL (9.4-12.3); Monocytes Absolute Auto 0.7 X10*3/uL (0.1-1.2); Monocytes Percent Auto 8.1 % (2-11); Neutrophils Absolute Auto 4.7 X10*3/uL (2.0-8.3); Neutrophils Percent Auto 55.3 % (45-73); Platelet Count 254 X10*3/uL (160-400); Red Blood Count 4.91 X10*6/uL (4.20-5.50); White Blood Count 8.5 X10*3/uL (4.8-10.8)
[2020-08-21 12:27] LABS: Anion Gap 10 (12-20); Blood Urea Nitrogen 23 mg/dL (9-16); Calcium 9.6 mg/dL (8.4-10.2); Carbon Dioxide 28 mmol/L (22-29); Chloride 109 mmol/L (96-108); Estimated Glomerular Filt Rate > 60; Glucose Random 90 mg/dL (60-115); Potassium 3.5 mmol/L (3.3-5.1); Sodium 143 mmol/L (135-145)
[2020-08-21 13:12] LABS: Erythrocyte Sedimentation Rate 10 MM/HR (0-20)
[2020-08-24 14:42] LABS: Anti Nuclear Antibody Pattern Nuclear, Homogeneous; Anti Nuclear Antibody Screen POSITIVE (NEGATIVE); Anti Nuclear Antibody Titer 1:40 titer
== END 2020-08-21 10:16 | disposition home or self-care (01) ==
LOC: HO.LAB 10:15
PROVIDERS: Internal Medicine Gastroenterology; PCP Internal Medicine Geriatric Medicine; Visit Provider Hospitalist
DX: J45.51 Severe persistent asthma with (acute) exacerbation (principal); M79.7 Fibromyalgia; R76.8 Other specified abnormal immunological findings in serum; T78.40XA Allergy, unspecified, initial encounter; K21.9 Gastro-esophageal reflux disease without esophagitis; K21.00 Gastro-esophageal reflux disease with esophagitis, without bleeding; R10.13 Epigastric pain; Z79.899 Other long term (current) drug therapy
CPT/HCPCS: 36415; 80048; 85025; 85652; 86038; 86039; 99212

== ENCOUNTER 2020-09-12 12:13 | Outpatient (REF) | payer MEDICARE, SELFPAY ==
[2020-09-12 13:55] LABS: Alanine Aminotransferase 17 U/L (0-31); Albumin Level 4.3 g/dL (3.5-5.0); Alkaline Phosphatase 81 U/L (39-117); Aspartate Amino Transferase 18 U/L (5-31); Bilirubin Direct 0.2 mg/dL (0.0-0.5); Bilirubin Total 0.5 mg/dL (0.0-1.0); Cholesterol 238 mg/dL; HDL Cholesterol 39 mg/dL; LDL Cholesterol Calculated 161 mg/dl; Total Protein 7.2 g/dL (6.5-8.0); Triglycerides 192 mg/dL
== END 2020-09-12 12:14 | disposition home or self-care (01) ==
LOC: HO.LAB 12:13
PROVIDERS: PCP Internal Medicine Geriatric Medicine; Visit Provider Internal Medicine Geriatric Medicine
DX: Z13.220 Encounter for screening for lipoid disorders (principal)
CPT/HCPCS: 36415; 80061; 80076

== ENCOUNTER 2020-10-05 19:31 | Emergency (ER) | payer MEDICARE, SELFPAY ==
--- NOTE | 2020-10-05 | ECG_ITS ---
Test Reason : HTN Blood Pressure : / mmHG Vent. Rate : 076 BPM Atrial Rate : 076 BPM P-R Int : 154 ms QRS Dur : 094 ms QT Int : 410 ms P-R-T Axes : 054 018 035 degrees QTc Int : 461 ms Normal sinus rhythm Nonspecific ST and T wave abnormality Abnormal ECG When compared with ECG of 09-SEP-2019 22:38, No significant change was found Referred By: Michelle Woods Electronically Signed By:Isaias Chen
--- NOTE | ~2020-10-05 | CT_ITS ---
EXAMINATION: CT HEAD WITHOUT CONTRAST CLINICAL INFORMATION: Severe headache COMPARISON: 01/26/2018 TECHNIQUE: Contiguous axial imaging was performed from the skull base to vertex without intravenous administration of contrast. This CT examination was performed using dose optimization techniques as appropriate, variously including the following: *Automated exposure control *Adjustment of mA and/or kV according to patient size (this includes techniques or standardized protocols for targeted exams where dose is matched to indication/reason for exam; i.e. extremities or head) *Use of iterative reconstruction technique DLP: 686 mGy-cm FINDINGS: There is no evidence of acute intracranial hemorrhage or territorial infarction. No abnormal mass effect or midline shift is seen. Taylor to white matter differentiation is well preserved. No extra-axial fluid collections are identified. The ventricles are normal in size. There is no abnormal attenuation within the brain parenchyma. The osseous structures and soft tissues are normal. The mastoid air cells and visualized portions of the paranasal sinuses are well aerated. CT/CT head/brain wo con IMPRESSION: No acute intracranial pathology.
[2020-10-05 19:33] VITALS: BP 198/98; PULSE 86; RESP 22; TEMP 36.4; O2SAT 99; BMI 23.6
[2020-10-05 20:29] LABS: Hematocrit 41.8 % (37-47); Hemoglobin 13.2 g/dl (12.0-16.0); Mean Corpuscular HGB Conc 31.6 g/dl (31.0-35.0); Mean Corpuscular Hemoglobin 24.9 pg (27.0-33.0); Mean Corpuscular Volume 78.7 fL (80-98); Mean Platelet Volume 9.9 fL (9.4-12.3); Platelet Count 232 X10*3/uL (160-400); Red Blood Count 5.31 X10*6/uL (4.20-5.50); Red Cell Distribution Width 13.7 % (11.0-16.0); White Blood Count 7.2 X10*3/uL (4.8-10.8)
[2020-10-05 20:42] LABS: Anion Gap 15 (12-20); Blood Urea Nitrogen 13 mg/dL (9-16); Calcium 9.5 mg/dL (8.4-10.2); Carbon Dioxide 25 mmol/L (22-29); Chloride 106 mmol/L (96-108); Creatinine Clr Calc Pharmacy 71.5; Estimated Glomerular Filt Rate > 60; Glucose Random 101 mg/dL (60-115); Potassium 3.6 mmol/L (3.3-5.1); Sodium 142 mmol/L (135-145)
[2020-10-05 20:43] LABS: Prothrombin Time 11.7 SEC (9.9-13.0)
[2020-10-05 20:48] LABS: Troponin-I High Sensitivity < 3.5 ng/L (<3.5-17.0)
--- NOTE | 2020-10-05 22:52 | ED_ITS ---
HPI - Arrhythmia/Palpitations General Chief Complaint: Arrhythmia/Palpitations Stated Complaint: palpitations, high bp Time Seen by Provider: 10/05/20 22:43 Source: patient Mode of arrival: ambulatory Limitations: no limitations History of Present Illness HPI narrative: Patient comes to emergency room complaining of palpitations, chest pressure, headache. Patient states that she is known to have high blood pressure, takes hydrochlorothiazide and valsartan 60 mg and is compliant with her medications on a daily basis. Patient states that at home her blood pressure was over 200 systolic. At this time, patient only has headache, no chest pressure or palpitations. Related Data Home Medications Medication Instructions Recorded Confirmed albuterol sulfate 1 vial INHALATION Q6H PRN 12/14/19 08/21/20 albuterol sulfate 90 mcg/actuation 2 puff PO Q4H PRN 12/14/19 08/21/20 aerosol inhaler cholecalciferol (vitamin D3) 50 1 tab PO DAILY 12/14/19 08/21/20 mcg (2,000 unit) tablet esomeprazole magnesium 20 mg 2 cap PO DAILY 12/14/19 08/21/20 capsule,delayed release hydrochlorothiazide 12.5 mg capsule 1 cap PO DAILY 12/14/19 08/21/20 ketotifen fumarate 0.025 % (0.035 1 drp OPHTHALMIC (EYE) BID PRN 12/14/19 08/21/20 %) eye drops levalbuterol tartrate 45 2 puff INHALATION Q4H PRN 12/14/19 08/21/20 mcg/actuation aerosol inhaler lorazepam 1 mg tablet 1 tab PO BID 12/14/19 08/21/20 mometasone-formoterol HFA 200 2 puff INHALATION BID 12/14/19 08/21/20 mcg-5 mcg/actuation aerosol inhaler (Dulera) sumatriptan succinate 50 mg tablet 50 mg PO Q2-4H PRN 12/14/19 08/21/20 (Imitrex) tiotropium bromide 2.5 2 puff PO DAILY 12/14/19 08/21/20 mcg/actuation mist for inhalation (Spiriva Respimat) umeclidinium 62.5 mcg/actuation INHALATION 12/14/19 08/21/20 blister powder for inhalation (Incruse Ellipta) valsartan 40 mg tablet 1 tab PO BID 12/14/19 07/10/20 amitriptyline 50 mg tablet 50 mg PO BEDTIME 03/27/20 08/21/20 fexofenadine 180 mg tablet 0 mg PO 03/27/20 08/21/20 fluoxetine 20 mg capsule 20 mg PO DAILY 03/27/20 08/21/20 valsartan 80 mg tablet 80 mg PO DAILY 05/21/20 08/21/20 Previous Rx's Medication Instructions Recorded aluminum hydrox-magnesium carb 95 15 ml PO QID 30 Days #1800 ml 12/08/19 mg-358 mg/15 mL oral suspension (Acid Gone Antacid) albuterol sulfate 2.5 mg INHALATION Q4H PRN 30 Days 03/27/20 #180 ml montelukast 10 mg tablet 10 mg PO DAILY #90 tab 04/25/20 prednisone 10 mg tablet 10 mg PO DAILY 14 Days #21 tab 05/21/20 epinephrine 0.3 mg/0.3 mL 0.3 ml IM DIRECTED 30 Days #2 ea 08/14/20 injection, auto-injector (EpiPen 2-Jeremi) budesonide 0.5 mg/2 mL suspension 0.5 mg INHALATION DAILY #180 ml 08/21/20 for nebulization dupilumab 200 mg/1.14 mL 200 mg SUBCUT Q2W #1.14 ml 08/21/20 subcutaneous syringe (DupixAdvanced Patient Care) levalbuterol HCl 1.25 mg/3 mL 1.25 mg INHALATION Q6H PRN 30 Days 08/21/20 solution for nebulization (Xopenex) #360 ml prednisone 10 mg tablet 10 mg PO DAILY 18 Days #63 tab 08/21/20 plecanatide 3 mg tablet (Trulance) 3 mg PO DAILY 30 Days #30 tab 08/22/20 hydrochlorothiazide 25 mg tablet 25 mg PO DAILY #20 tab 10/06/20 valsartan 160 mg tablet 160 mg PO DAILY #20 tab 10/06/20 Allergies Allergy/AdvReac Type Severity Reaction Status Date / Time ciprofloxacin [From Cipro] Allergy Intermediate HIVES/ITCHI Verified 10/05/20 19:38 NG oxycodone [Percocet] Allergy Intermediate Hives Verified 10/05/20 19:38 Penicillins Allergy Intermediate HIVES/ITCHI Verified 10/05/20 19:38 NG simvastatin [Simvastatin] Allergy Intermediate HIVES/ITCHI Verified 10/05/20 19:38 NIG vancomycin [Vancomycin] Allergy Intermediate HIVES/ITCHI Verified 10/05/20 19:38 NG latex Allergy Mild Rash Verified 10/05/20 19:38 milnacipran [From Savella] Allergy Mild Hives Verified 10/05/20 19:38 Sulfa (Sulfonamide Allergy Mild Shortness Verified 10/05/20 19:38 Antibiotics) of Breath Review of Systems Review of Systems: Constitutional : No Weight loss, No Fever, No Chills, No Night Sweats, No Fatigue, No Malaise ENT/Mouth : No Hearing loss, No Ear Pain, No Nasal Congestion, No Sinus Pain, No Hoarseness, No sore throat, No Rhinorrhea, No Swallowing Difficulty Eyes: No Eye Pain, No Swelling, No Redness, No Foreign Body, No Discharge, No Vision Changes Cardiovascular complaining of intermittent chest pressure which resolved, No SOB, No Dyspnea on Exertion, No Orthopnea, No Edema, complaining of intermittent Palpitations Respiratory : No Cough, No Sputum, No Wheezing, No Smoke Exposure, No Dyspnea Gastrointestinal : No Nausea, No Vomiting, No Diarrhea, No Constipation, No abdominal Pain, No Hematochezia, No Melena Genitourinary : no irregular bleeding, No Dysuria, No Urinary Frequency, No Hematuria, No Urinary Incontinence, No Urgency, No Flank Pain, No Urinary Flow Changes, No Hesitancy Musculoskeletal : No joint pain, No Myalgias, No Joint Swelling Skin : No Skin Lesions, No rash Neuro : No Weakness, No Numbness, No Paresthesias, No Loss of Consciousness, No Dizziness, complaining of Headache Psych : No Anxiety/Panic, No Depression, No SI/HI/AH/VH, No Social Issues, Heme/Lymph: No Bruising, No Bleeding,No Lymphadenopathy Endocrine : No Polyuria, No Polydipsia, No Temperature Intolerance [facility] Past Medical History Medical History Allergic rhinitis VERA positive Anxiety Asthma Cervicalgia Chronic pain of left knee Depression DVT (deep venous thrombosis) Dyspnea Fibromyalgia GERD (gastroesophageal reflux disease) History of anesthesia problem History of vertigo Migraine Osteoarthritis Rash Sinusitis Tachycardia URI (upper respiratory infection) Varicose vein of leg Surgical History H/O varicose vein ligation and stripping History of repair of right rotator cuff Hx laparoscopic cholecystectomy Hx of appendectomy Hx of bilateral breast reduction surgery Hx of colonoscopy Hx of hemorrhoidectomy Hx of hysterectomy Status post right rotator cuff repair Family History Family History Father No problems noted. Mother Family history of high blood pressure Dementia Social History Social History (Updated 08/21/20 @ 10:44 by Veronica Truong Amelia) Household Members: None Alcohol intake: never Patient Tobacco Use Status: Never used Tobacco Advance Directives: No Advance Directives Date on File: 04/03/18 Current occupational status: unemployed Current occupation: Left Handed Physical Exam Vital Signs: Vital Signs: Last Vital Signs Temp 97.5 F 10/05/20 19:33 Pulse 83 10/05/20 23:59 Resp 18 10/05/20 23:59 BP 191/104 H 10/05/20 23:59 Pulse Ox 98 10/05/20 23:59 Body Mass Index 23.6 Const: Other: Appearance: Alert. Oriented X3. No acute distress. Eyes: Pupils equal, round and reactive to light. ENT: Pharynx normal. Neck: Normal inspection. Neck supple. No lymph nodes noted. No crepitus CVS: Normal heart rate and rhythm. Pulses normal. Normal S1 and S2 Respiratory: No respiratory distress. Breath sounds normal. No Wheezing. No rales Abdomen: Soft and nontender. No rigidity. No distention. Skin: Skin warm and dry. Normal skin color. Normal skin turgor. Extremities: No lower extremity edema. No Lacerations. No Rash Neuro: Oriented X 3. No motor deficit. No sensory deficit. Moving all extermit ies. No slurred speech. Course Course Course Narrative: Patient's blood pressure on discharge 151/81. Headache nearly resolved, head CT within normal limits. I discussed with the patient that we will increase her valsartan dose to 160 mg and hydrochlorothiazide to 25 mg daily. Troponin x2 within normal limits, patient denies chest pressure/ pain or shortness of breath MDM - Arrhythmia/Palpitations Lab Data Result diagrams: 10/05/20 19:53 10/05/20 19:53 Labs: Lab Results 10/05/20 10/05/20 10/05/20 Range/Units 19:53 19:53 19:53 WBC 7.2 (4.8-10.8) X10*3/uL RBC 5.31 (4.20-5.50) X10*6/uL Hgb 13.2 (12.0-16.0) g/dl Hct 41.8 (37-47) % MCV 78.7 L (80-98) fL MCH 24.9 L (27.0-33.0) pg MCHC 31.6 (31.0-35.0) g/dl RDW 13.7 (11.0-16.0) % Plt Count 232 (160-400) X10*3/uL MPV 9.9 (9.4-12.3) fL Absolute Nucleated RBC 0.000 (0.0-0.012) X10*3/uL Nucleated RBC % (auto) 0.0 (0.0-0.2) /100WBC PT 11.7 (9.9-13.0) SEC INR 1.0 (0.9-1.1) Sodium 142 (135-145) mmol/L Potassium 3.6 (3.3-5.1) mmol/L Chloride 106 (96-108) mmol/L Carbon Dioxide 25 (22-29) mmol/L Anion Gap 15 (12-20) BUN 13 (9-16) mg/dL Creatinine 0.64 (0.5-1.4) mg/dL Estim Creat Clear Calc 71.5 Estimated GFR > 60 Random Glucose 101 (60-115) mg/dL Calcium 9.5 (8.4-10.2) mg/dL Troponin I High Sens (<3.5-17.0) ng/L 10/05/20 10/05/20 Range/Units 19:53 23:03 WBC (4.8-10.8) X10*3/uL RBC (4.20-5.50) X10*6/uL Hgb (12.0-16.0) g/dl Hct (37-47) % MCV (80-98) fL MCH (27.0-33.0) pg MCHC (31.0-35.0) g/dl RDW (11.0-16.0) % Plt Count (160-400) X10*3/uL MPV (9.4-12.3) fL Absolute Nucleated RBC (0.0-0.012) X10*3/uL Nucleated RBC % (auto) (0.0-0.2) /100WBC PT (9.9-13.0) SEC INR (0.9-1.1) Sodium (135-145) mmol/L Potassium (3.3-5.1) mmol/L Chloride (96-108) mmol/L Carbon Dioxide (22-29) mmol/L Anion Gap (12-20) BUN (9-16) mg/dL Creatinine (0.5-1.4) mg/dL Estim Creat Clear Calc Estimated GFR Random Glucose (60-115) mg/dL Calcium (8.4-10.2) mg/dL Troponin I High Sens < 3.5 < 3.5 (<3.5-17.0) ng/L Imaging Data CT scan - head: Radiologist's impression: FINDINGS: There is no evidence of acute intracranial hemorrhage or territorial infarction. No abnormal mass effect or midline shift is seen. Taylor to white matter differentiation is well preserved. No extra-axial fluid collections are identified. The ventricles are normal in size. There is no abnormal attenuation within the brain parenchyma. The osseous structures and soft tissues are normal. The mastoid air cells and visualized portions of the paranasal sinuses are well aerated. ? CT/CT head/brain wo con IMPRESSION: No acute intracranial pathology. ECG Data Attestation: I personally reviewed and interpreted this ECG as follows: (Sinus rhythm, heart rate 76, nonspecific though ST and T-wave abnormalities in V2 and V3, nonspecific T-wave inversion in V1 V2, QTC 461) Critical Care Time Critical Care Time Total Critical Care Time: 45 Discharge Plan Discharge Clinical Impression: Hypertension Qualifiers: Hypertension type: unspecified Qualified Code(s): I10 - Essential (primary) hypertension Patient Disposition: Home, Self-Care Instructions: Hypertension (ED) Additional Instructions: Please follow-up with your primary care physician tomorrow. If you have any worsening or new symptoms, please return to the emergency room or call 911 Prescriptions: New valsartan 160 mg tablet 160 mg PO DAILY Qty: 20 RF: 0 hydrochlorothiazide 25 mg tablet 25 mg PO DAILY Qty: 20 RF: 0 No Action Acid Gone Antacid 95-358 mg/15 mL suspension 15 ml PO QID 30 Days Qty: 1800 RF: 3 montelukast 10 mg tablet 10 mg PO DAILY Qty: 90 RF: 3 epinephrine [EpiPen 2-Jeremi] 0.3 mg/0.3 mL auto-injector 0.3 ml IM DIRECTED 30 Days Qty: 2 RF: 6 Trulance 3 mg tablet 3 mg PO DAILY 30 Days Qty: 30 RF: 3 albuterol sulfate 2.5 mg /3 mL (0.083 %) solution for nebulization 1 vial inhalation Q6H PRN (Reason: Wheezing) RF: 0 ketotifen fumarate 0.025 % (0.035 %) drops 1 drp ophthalmic (eye) BID PRN (Reason: Allergy Symptoms) RF: 0 hydrochlorothiazide 12.5 mg capsule 1 cap PO DAILY RF: 0 lorazepam 1 mg tablet 1 tab PO BID RF: 0 albuterol sulfate 90 mcg/actuation HFA aerosol inhaler 2 puff PO Q4H PRN (Reason: Wheezing) RF: 0 esomeprazole magnesium 20 mg capsule,delayed release(DR/EC) 2 cap PO DAILY RF: 0 valsartan 40 mg tablet 1 tab PO BID RF: 0 levalbuterol tartrate 45 mcg/actuation HFA aerosol inhaler 2 puff inhalation Q4H PRN (Reason: Wheezing) RF: 0 cholecalciferol (vitamin D3) 50 mcg (2,000 unit) tablet 1 tab PO DAILY RF: 0 Dulera 200-5 mcg/actuation HFA aerosol inhaler 2 puff inhalation BID RF: 0 Spiriva Respimat 2.5 mcg/actuation mist 2 puff PO DAILY RF: 0 Incruse Ellipta 62.5 mcg/actuation blister with device inhalation RF: 0 sumatriptan succinate [Imitrex] 50 mg Tablet 50 mg PO Q2-4H PRN (Reason: Migraine Headache) RF: 0 valsartan 80 mg tablet 80 mg PO DAILY RF: 0 prednisone 10 mg tablet 10 mg PO DAILY 14 Days Qty: 21 RF: 0 fluoxetine 20 mg capsule 20 mg PO DAILY RF: 0 fexofenadine 180 mg tablet 0 mg PO RF: 0 amitriptyline 50 mg tablet 50 mg PO BEDTIME RF: 0 albuterol sulfate 2.5 mg /3 mL (0.083 %) solution for nebulization 2.5 mg inhalation Q4H PRN (Reason: shortness of breath or wheezing) 30 Days Qty: 180 RF: 11 levalbuterol HCl [Xopenex] 1.25 mg/3 mL solution for nebulization 1.25 mg inhalation Q6H PRN (Reason: shortness of breath or wheezing) 30 Days Qty: 360 RF: 11 prednisone 10 mg tablet 10 mg PO DAILY 18 Days Qty: 63 RF: 0 budesonide 0.5 mg/2 mL suspension for nebulization 0.5 mg inhalation DAILY Qty: 180 RF: 3 Dupixent Syringe 200 mg/1.14 mL syringe 200 mg subcut Q2W Qty: 1.14 RF: 0
[2020-10-05] MEDS: Acetaminophen 325 MG TABLET 650 MG PO (23:05)
[2020-10-05] MEDS: Labetalol HCL 100 MG TABLET PO ×2 (23:06→23:58)
--- NOTE | 2020-10-05 23:07 | PC.NURSE ---
PT REPORTS SUDDEN ONSET HEADACHE TONIGHT, TOOK BP AT HOME 202 SYSTOLIC. DENIES ANY CHANGES IN MEDS OR MISSED DOSES. A&Ox4 SKIN PWD RESPIRATIONS EVEN UNLABORED. MEDICATED PER MAR, AWAITING IMPROVEMENT IN SYMPTOMS AND LAB RESULTS.
[2020-10-05 23:15] VITALS: BP 184/102; PULSE 81; RESP 18
[2020-10-05 23:30] LABS: Troponin-I High Sensitivity < 3.5 ng/L (<3.5-17.0)
[2020-10-05 23:58] VITALS: BP 191/104; PULSE 83
[2020-10-05 23:59] VITALS: BP 191/104; PULSE 83; RESP 18; O2SAT 98
--- NOTE | 2020-10-06 | PC.NURSE ---
PT MEDICATED WITH ADDITIONAL DOSE OF LABETALOL FOR PERSISTENT HIGH BP. REPORTS IMPROVED HEAD PAIN CURRENT PAIN SCALE DOWN TO 5/10 FROM 10 PREVIOUSLY. WILL CONTINUE TO MONITOR.
[2020-10-06 01:26] VITALS: BP 150/81; PULSE 72; O2SAT 98
== END 2020-10-06 01:27 | disposition home or self-care (01) ==
PROVIDERS: Emergency Provider Emergency Medicine; PCP Internal Medicine Geriatric Medicine
DX: I10 Essential (primary) hypertension (principal); Z79.899 Other long term (current) drug therapy
CPT/HCPCS: 36415; 70450; 80048; 84484; 85027; 85610; 93005; 99285; 99291

== ENCOUNTER → 2020-10-22 07:46 | Outpatient (REF) | payer MEDICARE, SELFPAY ==
--- NOTE | ~2020-10-22 | NM_ITS ---
EXAMINATION: RADIONUCLIDE SOLID FOOD GASTRIC EMPTYING 4-HOUR STUDY CLINICAL INFORMATION: Early satiety. COMPARISON: No previous gastric emptying study is available for comparison. TECHNIQUE: A standard meal consisting of 4 oz of Egg Beaters brand equivalent tagged with 1 mCi Tc-99m Sulfur Colloid, 8 oz water and 2 slices of toast with jelly was administered orally to the patient. Images were obtained using a dual head gamma camera in the anterior and posterior projections over of the stomach immediately post ingestion and at hourly intervals up to 4 hours post ingestion. The anterior and posterior counts at each time interval were averaged using the geometric mean and expressed as percentage of the immediate post ingestion counts. FINDINGS: There is good visualization of activity in the stomach immediately post ingestion. As the study progresses, there is good clearance of activity from the stomach and visualization of progressively increasing small bowel activity. By the end of the study, there is almost no retention noted in the stomach. Retention in the stomach at each time interval was: 1 hour 74% (normal 37%-90%) 2 hours 35% (normal 30%-60%) 3 hours 13% 4 hours 2% (normal 0%-10%) NM/NM gastric emptying study IMPRESSION: Normal 4-hour solid food gastric emptying study.
== END ==
LOC: HO.NUCMED 07:46
PROVIDERS: PCP Internal Medicine Geriatric Medicine; Visit Provider Internal Medicine Gastroenterology
DX: R68.81 Early satiety (principal)
CPT/HCPCS: 78264; A9541

== ENCOUNTER → 2020-11-22 10:58 | Outpatient (BNVA) | payer MEDICARE, SELFPAY | PROVIDERS: PCP Internal Medicine Geriatric Medicine; Visit Provider Hospitalist | DX: J45.51 Severe persistent asthma with (acute) exacerbation (principal); K21.00 Gastro-esophageal reflux disease with esophagitis, without bleeding; T78.40XA Allergy, unspecified, initial encounter | CPT/HCPCS: 96372; 99212; J2930 ==

== ENCOUNTER 2020-12-28 09:09 | Outpatient (REF) | payer MEDICARE, SELFPAY ==
--- NOTE | ~2020-12-28 | XR_ITS ---
EXAMINATION: XR KNEE, BILATERAL XR KNEE, LEFT CLINICAL INFORMATION: Pain COMPARISON: 12/21/2019 TECHNIQUE: AP standing view of both knees. Lateral and sunrise views of the left knee. FINDINGS: Left knee: No fracture or subluxation. Mild narrowing at the medial and lateral compartments. Small tricompartmental marginal osteophytes, greatest laterally. This is unchanged. No joint effusion. The soft tissues appear unremarkable. Right knee: No fracture or subluxation. Calcification in the soft tissues along the lateral joint line is again noted. XR/XR knee LT 2V IMPRESSION: Mild tricompartmental degenerative changes, greatest at the lateral compartment. These are similar to prior.
--- NOTE | ~2020-12-28 | XR_ITS ---
EXAMINATION: XR KNEE, BILATERAL XR KNEE, LEFT CLINICAL INFORMATION: Pain COMPARISON: 12/21/2019 TECHNIQUE: AP standing view of both knees. Lateral and sunrise views of the left knee. FINDINGS: Left knee: No fracture or subluxation. Mild narrowing at the medial and lateral compartments. Small tricompartmental marginal osteophytes, greatest laterally. This is unchanged. No joint effusion. The soft tissues appear unremarkable. Right knee: No fracture or subluxation. Calcification in the soft tissues along the lateral joint line is again noted. XR/XR knee standing BI IMPRESSION: Mild tricompartmental degenerative changes, greatest at the lateral compartment. These are similar to prior.
[2020-12-28 13:33] LABS: MANUAL DIFF FLAG NO
[2020-12-28 13:59] LABS: Basophils Percent Auto 0.6 % (0-2); Eosinophils Absolute Auto 0.1 X10*3/uL (0.0-0.4); Hematocrit 40.5 % (37-47); Imm Gran Abs Auto 0.02 X10*3/uL (0.00-0.03); Imm Gran Pct Auto 0.3 % (0.0-0.4); Lymphocytes Absolute Auto 2.3 X10*3/uL (1.2-4.9); Lymphocytes Percent Auto 33.2 % (20-40); Mean Corpuscular HGB Conc 32.1 g/dl (31.0-35.0); Mean Corpuscular Hemoglobin 25.3 pg (27.0-33.0); Mean Corpuscular Volume 78.9 fL (80-98); Mean Platelet Volume 9.9 fL (9.4-12.3); Monocytes Absolute Auto 0.5 X10*3/uL (0.1-1.2); Monocytes Percent Auto 6.5 % (2-11); Neutrophils Percent Auto 57.4 % (45-73); Platelet Count 233 X10*3/uL (160-400); Red Blood Count 5.13 X10*6/uL (4.20-5.50); Red Cell Distribution Width 13.9 % (11.0-16.0); White Blood Count 6.9 X10*3/uL (4.8-10.8)
[2020-12-28 14:33] LABS: Alanine Aminotransferase 16 U/L (0-31); Albumin Level 4.4 g/dL (3.5-5.0); Alkaline Phosphatase 85 U/L (39-117); Anion Gap 13 (12-20); Aspartate Amino Transferase 18 U/L (5-31); Bilirubin Total 0.2 mg/dL (0.0-1.0); Blood Urea Nitrogen 19 mg/dL (9-16); C Reactive Protein 0.78 mg/dL (< or = 0.50); Calcium 9.9 mg/dL (8.4-10.2); Carbon Dioxide 28 mmol/L (22-29); Chloride 106 mmol/L (96-108); Estimated Glomerular Filt Rate > 60; Glucose Random 93 mg/dL (60-115); Potassium 4.1 mmol/L (3.3-5.1); Sodium 143 mmol/L (135-145); Total Protein 7.3 g/dL (6.5-8.0)
[2020-12-28 14:55] LABS: Ferritin 51 ng/mL (10-250); TSH reflex Free T4 1.94 uIU/mL (0.32-4.0)
[2020-12-28 15:03] LABS: Erythrocyte Sedimentation Rate 18 MM/HR (0-20)
[2020-12-28 15:20] LABS: Folate 9.5 ng/mL (> or = 4.0); Vitamin B12 496 pg/mL (200-900)
[2020-12-29 13:17] LABS: Gliadin Deamidated IgG Ab <1.0 U/mL; Transglutaminase Ab IgG <1.0 U/mL; Transglutaminase IgA <1.0 U/mL
[2021-01-02 04:36] LABS: Zinc 55 mcg/dL (60-130)
[2021-01-04 18:41] LABS: Histamine Plasma 4.3 ng/mL (< OR = 1.8)
== END 2020-12-28 09:10 | disposition home or self-care (01) ==
LOC: HO.LAB 09:09
PROVIDERS: Absent Provider Internal Medicine Gastroenterology; PCP Internal Medicine Geriatric Medicine; Visit Provider Orthopaedic Surgery
DX: M17.12 Unilateral primary osteoarthritis, left knee (principal); R19.8 Other specified symptoms and signs involving the digestive system and abdomen; G89.29 Other chronic pain; R10.33 Periumbilical pain; K75.81 Nonalcoholic steatohepatitis (NASH); M79.7 Fibromyalgia; I10 Essential (primary) hypertension; Z79.899 Other long term (current) drug therapy
CPT/HCPCS: 20610; 36415; 73560; 73565; 80053; 82607; 82728; 82746; 83088; 83516; 83520; 84443; 84630; 85025; 85652; 86003; 86140; 99212; J1100; Q3014

== ENCOUNTER 2020-12-31 12:22 | Outpatient (REF) | payer MEDICARE, SELFPAY ==
[2020-12-31 15:01] LABS: CDiff Gene PCR POSITIVE (Negative)
[2020-12-31 15:57] LABS: CDiff Toxin Negative (Negative)
[2020-12-31 15:58] LABS: CDIFF Internal ctrl Dots and bkg OK (V)
[2021-01-04 19:35] LABS: Fecal Fat Qualitative NORMAL (NORMAL)
[2021-01-04 22:03] LABS: Calprotectin, Fecal 13 mcg/g
[2021-01-05 16:47] LABS: Pancreatic Elastase-1 >500 mcg/g
== END 2020-12-31 12:23 | disposition home or self-care (01) ==
LOC: HO.LNP 12:22
PROVIDERS: Visit Provider Internal Medicine Gastroenterology
DX: R19.8 Other specified symptoms and signs involving the digestive system and abdomen (principal); A04.8 Other specified bacterial intestinal infections
CPT/HCPCS: 82656; 82705; 83993; 87324; 87329; 87493

== ENCOUNTER 2021-01-07 21:45 | Emergency (ER) | payer MEDICARE, SELFPAY ==
--- NOTE | 2021-01-07 | ECG_ITS ---
Test Reason : chest pain Blood Pressure : / mmHG Vent. Rate : 091 BPM Atrial Rate : 091 BPM P-R Int : 150 ms QRS Dur : 090 ms QT Int : 390 ms P-R-T Axes : 063 018 040 degrees QTc Int : 479 ms Normal sinus rhythm Nonspecific ST and T wave abnormality RSR' or QR pattern in V1 suggests right ventricular conduction delay Abnormal ECG When compared with ECG of 05-OCT-2020 19:55, No significant change was found Referred By: Generic ED Physician Electronically Signed By:ENID BRADLEY MD
--- NOTE | ~2021-01-07 | XR_ITS ---
EXAMINATION: XR CHEST CLINICAL INFORMATION: Chest pain. High blood pressure. COMPARISON: 07/19/2020 TECHNIQUE: 2 views of the chest were obtained. FINDINGS: The lungs are well expanded. There is no focal consolidation, edema, or effusion. No pneumothorax. The cardiomediastinal silhouette is within normal limits. No acute osseous abnormality. Radiopaque anchors in the right humeral head and likely in the scapula. XR/XR chest 2V IMPRESSION: No acute pulmonary finding.
[2021-01-07 21:51] VITALS: BP 214/108; PULSE 99; RESP 19; TEMP 36.7; O2SAT 98; BMI 23.7
[2021-01-07 22:12] LABS: MANUAL DIFF FLAG NO
[2021-01-07 22:14] LABS: Basophils Absolute Auto 0.1 X10*3/uL (0.0-0.2); Basophils Percent Auto 0.7 % (0-2); Eosinophils Absolute Auto 0.1 X10*3/uL (0.0-0.4); Eosinophils Percent Auto 1.2 % (0-4); Hematocrit 40.8 % (37.0-47.0); Imm Gran Abs Auto 0.02 X10*3/uL (0.00-0.03); Imm Gran Pct Auto 0.3 % (0.0-0.4); Lymphocytes Absolute Auto 2.9 X10*3/uL (1.2-4.9); Lymphocytes Percent Auto 37.4 % (20-40); Mean Corpuscular HGB Conc 31.9 g/dl (31.0-35.0); Mean Corpuscular Hemoglobin 25.3 pg (27.0-33.0); Mean Corpuscular Volume 79.4 fL (80.0-98.0); Mean Platelet Volume 9.6 fL (9.4-12.3); Monocytes Absolute Auto 0.5 X10*3/uL (0.1-1.2); Neutrophils Absolute Auto 4.2 x10*3/uL (2.0-8.3); Neutrophils Percent Auto 54.4 % (45-73); Platelet Count 241 X10*3/uL (160-400); Red Blood Count 5.14 X10*6/uL (4.20-5.50); White Blood Count 7.7 X10*3/uL (4.8-10.8)
[2021-01-07 22:31] LABS: Alanine Aminotransferase 20 U/L (0-31); Albumin Level 4.4 g/dL (3.5-5.0); Alkaline Phosphatase 84 U/L (39-117); Anion Gap 12 (12-20); Aspartate Amino Transferase 19 U/L (5-31); Bilirubin Total 0.3 mg/dL (0.0-1.0); Blood Urea Nitrogen 11 mg/dL (9-16); Calcium 9.4 mg/dL (8.4-10.2); Carbon Dioxide 25 mmol/L (22-29); Chloride 109 mmol/L (96-108); Creatinine Clr Calc Pharmacy 73.8; Estimated Glomerular Filt Rate > 60; Glucose Fasting 104 mg/dL (60-99); Potassium 3.4 mmol/L (3.3-5.1); Sodium 143 mmol/L (135-145); Total Protein 7.3 g/dL (6.5-8.0)
[2021-01-07 22:35] LABS: Troponin-I High Sensitivity < 3.5 ng/L (<3.5-17.0)
[2021-01-07 23:42] VITALS: BP 182/90; PULSE 84; RESP 18; O2SAT 99
--- NOTE | 2021-01-07 23:45 | ED.CHESTPAIN ---
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 Mode of arrival: ambulatory Limitations: no limitations History of Present Illness HPI narrative: on fidaxomicin for c diff positive 12/31 just started it yesterday states since taking her her BP has been increasing and having headaches but cannot take vancomycin due to allergy MD complaint: other (headaches, chest, pain, HTN) Onset (ago): day(s) (2) Timing of current episode: episodic Onset: during rest Pain location: left chest Pain radiation: none Severity: mild Quality: tightness Relieving factors: nothing Exacerbating factors: nothing Context: recent illness (dx with c diff but no sig diarrhea) Associated symptoms: nausea Treatment prior to arrival: none Related Data Home Medications Medication Instructions Recorded Confirmed albuterol sulfate 1 vial INHALATION Q6H PRN 12/14/19 08/21/20 albuterol sulfate 90 mcg/actuation 2 puff PO Q4H PRN 12/14/19 08/21/20 aerosol inhaler cholecalciferol (vitamin D3) 50 1 tab PO DAILY 12/14/19 08/21/20 mcg (2,000 unit) tablet esomeprazole magnesium 20 mg 2 cap PO DAILY 12/14/19 08/21/20 capsule,delayed release hydrochlorothiazide 12.5 mg capsule 1 cap PO DAILY 12/14/19 08/21/20 ketotifen fumarate 0.025 % (0.035 1 drp OPHTHALMIC (EYE) BID PRN 12/14/19 08/21/20 %) eye drops levalbuterol tartrate 45 2 puff INHALATION Q4H PRN 12/14/19 08/21/20 mcg/actuation aerosol inhaler lorazepam 1 mg tablet 1 tab PO BID 12/14/19 08/21/20 mometasone-formoterol HFA 200 2 puff INHALATION BID 12/14/19 08/21/20 mcg-5 mcg/actuation aerosol inhaler (Dulera) sumatriptan succinate 50 mg tablet 50 mg PO Q2-4H PRN 12/14/19 08/21/20 (Imitrex) tiotropium bromide 2.5 2 puff PO DAILY 12/14/19 08/21/20 mcg/actuation mist for inhalation (Spiriva Respimat) umeclidinium 62.5 mcg/actuation INHALATION 12/14/19 08/21/20 blister powder for inhalation (Incruse Ellipta) valsartan 40 mg tablet 1 tab PO BID 12/14/19 07/10/20 amitriptyline 50 mg tablet 50 mg PO BEDTIME 03/27/20 08/21/20 fexofenadine 180 mg tablet 0 mg PO 03/27/20 08/21/20 valsartan 80 mg tablet 80 mg PO DAILY 05/21/20 08/21/20 fluoxetine 20 mg capsule 20 mg PO DAILY 11/22/20 fluticasone propionate 50 2 spray INTRANASAL DAILY 11/22/20 mcg/actuation nasal spray,suspension blood pressure test kit-large #1 ea 12/28/20 tiotropium bromide 1.25 2 puff INHALATION DAILY 12/28/20 mcg/actuation mist for inhalation (Spiriva Respimat) Previous Rx's Medication Instructions Recorded albuterol sulfate 2.5 mg (3 mL) INHALATION Q4H PRN 03/27/20 30 Days #180 ml montelukast 10 mg tablet 10 mg PO DAILY #90 tab 04/25/20 epinephrine 0.3 mg/0.3 mL 0.3 ml IM DIRECTED 30 Days #2 ea 08/14/20 injection, auto-injector (EpiPen 2-Jeremi) budesonide 0.5 mg/2 mL suspension 0.5 mg (2 mL) INHALATION DAILY 08/21/20 for nebulization #180 ml dupilumab 200 mg/1.14 mL 200 mg (1.14 mL) SUBCUT Q2W #1.14 08/21/20 subcutaneous syringe (Dupixent) ml levalbuterol HCl 1.25 mg/3 mL 1.25 mg (3 mL) INHALATION Q6H PRN 08/21/20 solution for nebulization (Xopenex) 30 Days #360 ml plecanatide 3 mg tablet (Trulance) 3 mg PO DAILY 30 Days #30 tab 08/22/20 hydrochlorothiazide 25 mg tablet 25 mg PO DAILY #20 tab 10/06/20 valsartan 160 mg tablet 160 mg PO DAILY #20 tab 10/06/20 prednisone 20 mg tablet See Rx Instructions PO DAILY 11/22/20 Days #15 tab dicyclomine 10 mg capsule 10 mg PO BID #30 cap 12/28/20 fidaxomicin 200 mg tablet 200 mg PO BID 10 Days #20 tab 01/03/21 metronidazole 500 mg tablet 500 mg PO TID 10 Days #30 tab 01/08/21 Allergies Allergy/AdvReac Type Severity Reaction Status Date / Time ciprofloxacin [From Cipro] Allergy Intermediate HIVES/ITCHI Verified 01/07/21 21:58 NG oxycodone [Percocet] Allergy Intermediate Hives Verified 01/07/21 21:58 Penicillins Allergy Intermediate HIVES/ITCHI Verified 01/07/21 21:58 NG simvastatin [Simvastatin] Allergy Intermediate HIVES/ITCHI Verified 01/07/21 21:58 NIG vancomycin [Vancomycin] Allergy Intermediate HIVES/ITCHI Verified 01/07/21 21:58 NG latex Allergy Mild Rash Verified 01/07/21 21:58 milnacipran [From Savella] Allergy Mild Hives Verified 01/07/21 21:58 Sulfa (Sulfonamide Allergy Mild Shortness Verified 01/07/21 21:58 Antibiotics) of Breath Review of Systems Review of Systems: Constitutional : No Weight loss, No Fever, No Chills ENT/Mouth : No sore throat, No Rhinorrhea Eyes: No Eye Pain, No Swelling Cardiovascular : pos Chest Pain, no SOB, no Dyspnea on Exertion, No Orthopnea, No Edema, No Palpitations Respiratory : No Cough, No Sputum Gastrointestinal : pos Nausea, No Vomiting, No Diarrhea, No abdominal Pain, No Hematochezia, No Melena Genitourinary : No Dysuria, No Urinary Frequency Musculoskeletal : No joint pain, No Myalgias, No Joint Swelling Skin : No Skin Lesions, No rash Neuro : No Weakness, No Numbness, No Dizziness, posHeadache Psych : No Anxiety/Panic, No Depression Heme/Lymph: No Bruising, No Lymphadenopathy Endocrine : No Polyuria, No Polydipsia All other systems reviewed and are negative [facility] Past Medical History Attestation statement: The following information was validated with the patient. Medical History Allergic rhinitis VERA positive Anxiety Asthma Cervicalgia Chronic pain of left knee Depression DVT (deep venous thrombosis) Dyspnea Fibromyalgia GERD (gastroesophageal reflux disease) History of anesthesia problem History of vertigo Migraine Osteoarthritis Rash Sinusitis Tachycardia URI (upper respiratory infection) Varicose vein of leg Surgical History H/O varicose vein ligation and stripping History of esophagogastroduodenoscopy (EGD) History of repair of right rotator cuff Hx laparoscopic cholecystectomy Hx of appendectomy Hx of bilateral breast reduction surgery Hx of colonoscopy Hx of hemorrhoidectomy Hx of hysterectomy Status post right rotator cuff repair Family History Family History Father No problems noted. Mother Family history of high blood pressure Dementia Social History Social History Household Members: None Alcohol intake: never Patient Tobacco Use Status: Never used Tobacco Advance Directives: Yes Advance Directives on File: Yes Advance Directives Date on File: 04/03/18 Current occupational status: unemployed Current occupation: Left Handed Physical Exam Vital Signs: Vital Signs: Last Vital Signs Temp 98.1 F 01/07/21 21:51 Pulse 83 01/08/21 01:13 Resp 14 01/08/21 01:13 BP 158/82 H 01/08/21 01:13 Pulse Ox 99 01/07/21 23:42 Body Mass Index 23.7 Appearance: Alert. Oriented X3. No acute distress. Eyes: Pupils equal, round and reactive to light. ENT: Pharynx normal. Neck: Normal inspection. Neck supple. CVS: Normal heart rate and rhythm. Pulses normal. Respiratory: No respiratory distress. Breath sounds normal. Abdomen: Soft and non-tender. Skin: Skin warm and dry. Normal skin color. Normal skin turgor. Extremities: No lower extremity edema. No calf ttp Neuro: Oriented X 3. No motor deficit. No sensory deficit. Course Course Course Narrative: two troponins negative patient does not want to take the fidaxomicin and she is allergic to vancomycin - at this time she has no WBC count Cr normal and she denies any prior c diff infection and I cannot find a pos result in her past she has no belly pain. We could try oral flagyl for non severe disease as I do not think she will take the fidaxomicin BP 158/83 MDM - Chest Pain MDM Narrative Medical decision making narrative: 65 yo female with HTN compliant with her medications, hDulce pylori, C diff infection on PO medications that she believes are causing her to have HTN - she has mild headache and chest pressure. Unfortunately she has allergies to vancomycin. At this time will obtin labs, troponin x 2, hydrate, observe. Instruct her to follow up with PCP if labs negative. Lab Data Result diagrams: 01/07/21 22:08 01/07/21 22:07 Labs: Lab Results 01/07/21 01/07/21 01/07/21 Range/Units 22:07 22:08 22:08 WBC 7.7 (4.8-10.8) X10*3/uL RBC 5.14 (4.20-5.50) X10*6/uL Hgb 13.0 (12.0-16.0) g/dl Hct 40.8 (37.0-47.0) % MCV 79.4 L (80.0-98.0) fL MCH 25.3 L (27.0-33.0) pg MCHC 31.9 (31.0-35.0) g/dl RDW 14.0 (11.0-16.0) % Plt Count 241 (160-400) X10*3/uL MPV 9.6 (9.4-12.3) fL Immature Gran % (Auto) 0.3 (0.0-0.4) % Neut % (Auto) 54.4 (45-73) % Lymph % (Auto) 37.4 (20-40) % [place] % (Auto) 6.0 (2-11) % Eos % (Auto) 1.2 (0-4) % Baso % (Auto) 0.7 (0-2) % Lymph # (Auto) 2.9 (1.2-4.9) X10*3/uL [place] # (Auto) 0.5 (0.1-1.2) X10*3/uL Eos # (Auto) 0.1 (0.0-0.4) X10*3/uL Baso # (Auto) 0.1 (0.0-0.2) X10*3/uL Abs Immat Gran (auto) 0.02 (0.00-0.03) X10*3/uL Absolute Neuts (auto) 4.2 (2.0-8.3) x10*3/uL Absolute Nucleated RBC 0.000 (0.0-0.012) X10*3/uL Nucleated RBC % (auto) 0.0 (0.0-0.2) /100WBC Sodium 143 (135-145) mmol/L Potassium 3.4 (3.3-5.1) mmol/L Chloride 109 H (96-108) mmol/L Carbon Dioxide 25 (22-29) mmol/L Anion Gap 12 (12-20) BUN 11 (9-16) mg/dL Creatinine 0.62 (0.5-1.4) mg/dL Estim Creat Clear Calc 73.8 Estimated GFR > 60 Fasting Glucose 104 H (60-99) mg/dL Calcium 9.4 (8.4-10.2) mg/dL Total Bilirubin 0.3 (0.0-1.0) mg/dL AST 19 (5-31) U/L ALT 20 (0-31) U/L Alkaline Phosphatase 84 (39-117) U/L Troponin I High Sens < 3.5 (<3.5-17.0) ng/L Total Protein 7.3 (6.5-8.0) g/dL Albumin 4.4 (3.5-5.0) g/dL 01/08/21 Range/Units 00:29 WBC (4.8-10.8) X10*3/uL RBC (4.20-5.50) X10*6/uL Hgb (12.0-16.0) g/dl Hct (37.0-47.0) % MCV (80.0-98.0) fL MCH (27.0-33.0) pg MCHC (31.0-35.0) g/dl RDW (11.0-16.0) % Plt Count (160-400) X10*3/uL MPV (9.4-12.3) fL Immature Gran % (Auto) (0.0-0.4) % Neut % (Auto) (45-73) % Lymph % (Auto) (20-40) % [place] % (Auto) (2-11) % Eos % (Auto) (0-4) % Baso % (Auto) (0-2) % Lymph # (Auto) (1.2-4.9) X10*3/uL [place] # (Auto) (0.1-1.2) X10*3/uL Eos # (Auto) (0.0-0.4) X10*3/uL Baso # (Auto) (0.0-0.2) X10*3/uL Abs Immat Gran (auto) (0.00-0.03) X10*3/uL Absolute Neuts (auto) (2.0-8.3) x10*3/uL Absolute Nucleated RBC (0.0-0.012) X10*3/uL Nucleated RBC % (auto) (0.0-0.2) /100WBC Sodium (135-145) mmol/L Potassium (3.3-5.1) mmol/L Chloride (96-108) mmol/L Carbon Dioxide (22-29) mmol/L Anion Gap (12-20) BUN (9-16) mg/dL Creatinine (0.5-1.4) mg/dL Estim Creat Clear Calc Estimated GFR Fasting Glucose (60-99) mg/dL Calcium (8.4-10.2) mg/dL Total Bilirubin (0.0-1.0) mg/dL AST (5-31) U/L ALT (0-31) U/L Alkaline Phosphatase (39-117) U/L Troponin I High Sens < 3.5 (<3.5-17.0) ng/L Total Protein (6.5-8.0) g/dL Albumin (3.5-5.0) g/dL ECG Data ECG #1: Attestation: I personally reviewed and interpreted this ECG as follows: ECG interpretation date: 01/07/21 ECG interpretation time: 23:48 Interpretation: Rate: 91 Rhythm: NSR [place]: normal LVH Normal P waves. Normal MICHAEL. Normal QRS complex. ST T wave : nonspecific, no ARLENE qTC: normal prior studies: no sig change from prior 09/2020 The study has been interpreted contemporaneously by me. . Discharge Plan Discharge Clinical Impression: C. difficile diarrhea Hypertension Qualifiers: Hypertension type: unspecified Qualified Code(s): I10 - Essential (primary) hypertension Instructions: C. Diff (Clostridioides Difficile) Infection (ED), Hypertension (ED) Additional Instructions: return to ED for any worsening symptoms or concerns deje de gregg fidaxomicina debe informar a espinosa m?dico gastrointestinal que cambi? de antibi?karen y no pod?a tolerar los medicamentos Prescriptions: New metronidazole 500 mg tablet 500 mg PO TID 10 Days Qty: 30 RF: 0 No Action montelukast 10 mg tablet 10 mg PO DAILY Qty: 90 RF: 3 epinephrine [EpiPen 2-Jeremi] 0.3 mg/0.3 mL auto-injector 0.3 ml IM DIRECTED 30 Days Qty: 2 RF: 6 Trulance 3 mg tablet 3 mg PO DAILY 30 Days Qty: 30 RF: 3 fidaxomicin 200 mg tablet 200 mg PO BID 10 Days Qty: 20 RF: 0 albuterol sulfate 2.5 mg /3 mL (0.083 %) solution for nebulization 1 vial inhalation Q6H PRN (Reason: Wheezing) RF: 0 ketotifen fumarate 0.025 % (0.035 %) drops 1 drp ophthalmic (eye) BID PRN (Reason: Allergy Symptoms) RF: 0 hydrochlorothiazide 12.5 mg capsule 1 cap PO DAILY RF: 0 lorazepam 1 mg tablet 1 tab PO BID RF: 0 albuterol sulfate 90 mcg/actuation HFA aerosol inhaler 2 puff PO Q4H PRN (Reason: Wheezing) RF: 0 esomeprazole magnesium 20 mg capsule,delayed release(DR/EC) 2 cap PO DAILY RF: 0 valsartan 40 mg tablet 1 tab PO BID RF: 0 levalbuterol tartrate 45 mcg/actuation HFA aerosol inhaler 2 puff inhalation Q4H PRN (Reason: Wheezing) RF: 0 cholecalciferol (vitamin D3) 50 mcg (2,000 unit) tablet 1 tab PO DAILY RF: 0 Dulera 200-5 mcg/actuation HFA aerosol inhaler 2 puff inhalation BID RF: 0 Spiriva Respimat 2.5 mcg/actuation mist 2 puff PO DAILY RF: 0 Incruse Ellipta 62.5 mcg/actuation blister with device inhalation RF: 0 sumatriptan succinate [Imitrex] 50 mg Tablet 50 mg PO Q2-4H PRN (Reason: Migraine Headache) RF: 0 valsartan 160 mg tablet 160 mg PO DAILY Qty: 20 RF: 0 hydrochlorothiazide 25 mg tablet 25 mg PO DAILY Qty: 20 RF: 0 valsartan 80 mg tablet 80 mg PO DAILY RF: 0 fexofenadine 180 mg tablet 0 mg PO RF: 0 amitriptyline 50 mg tablet 50 mg PO BEDTIME RF: 0 albuterol sulfate 2.5 mg /3 mL (0.083 %) solution for nebulization 2.5 mg inhalation Q4H PRN (Reason: shortness of breath or wheezing) 30 Days Qty: 180 RF: 11 fluoxetine 20 mg capsule 20 mg PO DAILY RF: 0 levalbuterol HCl [Xopenex] 1.25 mg/3 mL solution for nebulization 1.25 mg inhalation Q6H PRN (Reason: shortness of breath or wheezing) 30 Days Qty: 360 RF: 11 budesonide 0.5 mg/2 mL suspension for nebulization 0.5 mg inhalation DAILY Qty: 180 RF: 3 Dupixent Syringe 200 mg/1.14 mL syringe 200 mg subcut Q2W Qty: 1.14 RF: 0 fluticasone propionate 50 mcg/actuation spray,suspension 2 spray intranasal DAILY RF: 0 prednisone 20 mg tablet See Rx Instructions PO DAILY 10 Days Qty: 15 RF: 0 (DME) blood pressure test kit-large Kit See Rx Instructions ea .ROUTE BID Qty: 1 RF: 0 Spiriva Respimat 1.25 mcg/actuation mist 2 puff inhalation DAILY RF: 0 dicyclomine 10 mg capsule 10 mg PO BID Qty: 30 RF: 2 Referrals: Physician,Unknown J [Primary Care Provider] - 2 days (primary care repetir la presi?n arterial en 2 d?as) Print Language: Swazi
[2021-01-08] MEDS: LORazepam 2 MG/ML VIAL 0.5 MG IVPUSH (00:43)
[2021-01-08] MEDS: 0.9 % Sodium Chloride 1,000 ML 999 ML IV (00:44)
[2021-01-08 00:52] LABS: Troponin-I High Sensitivity < 3.5 ng/L (<3.5-17.0)
[2021-01-08 01:13] VITALS: BP 158/82; PULSE 83; RESP 14
== END 2021-01-08 01:38 | disposition home or self-care (01) ==
PROVIDERS: Emergency Provider Emergency Medicine
DX: A09 Infectious gastroenteritis and colitis, unspecified (principal); I10 Essential (primary) hypertension; R51.9 Headache, unspecified; Z79.899 Other long term (current) drug therapy
CPT/HCPCS: 36415; 71046; 80053; 84484; 85025; 93005; 96361; 96374; 99284; J2060

== ENCOUNTER → 2021-01-29 08:45 | Outpatient (BNVA) | payer MEDICARE, SELFPAY | PROVIDERS: PCP Internal Medicine Geriatric Medicine; Visit Provider Hospitalist | DX: J45.51 Severe persistent asthma with (acute) exacerbation (principal); K21.00 Gastro-esophageal reflux disease with esophagitis, without bleeding; T78.40XD Allergy, unspecified, subsequent encounter | CPT/HCPCS: 99212 ==

== ENCOUNTER 2021-02-25 06:01 | Outpatient (REF) | payer MEDICARE, SELFPAY | END 2021-02-25 06:02 | disposition home or self-care (01) | LOC: HO.CT 06:01 | PROVIDERS: Visit Provider Internal Medicine Gastroenterology | DX: Z13.89 Encounter for screening for other disorder (principal) ==

== ENCOUNTER 2021-02-26 12:43 | Outpatient (REF) | payer MEDICARE, SELFPAY ==
[2021-02-26 13:41] LABS: CDiff Gene PCR POSITIVE (Negative)
[2021-02-26 14:55] LABS: CDiff Toxin Positive (Negative)
[2021-02-26 15:26] LABS: CDIFF Internal ctrl Dots and bkg OK (V)
[2021-03-05 02:06] LABS: Calprotectin, Fecal 134 mcg/g
[2021-03-05 19:11] LABS: Pancreatic Elastase-1 >500 mcg/g
[2021-03-07 14:35] LABS: Fecal Fat Qualitative Normal (Normal)
== END 2021-02-26 12:44 | disposition home or self-care (01) ==
LOC: HO.LNP 12:43
PROVIDERS: Visit Provider Internal Medicine Gastroenterology
DX: R19.8 Other specified symptoms and signs involving the digestive system and abdomen (principal)
CPT/HCPCS: 82656; 82705; 83993; 87324; 87493

== ENCOUNTER → 2021-03-20 10:46 | Outpatient (BNVA) | payer MEDICARE, SELFPAY | PROVIDERS: Visit Provider Internal Medicine | DX: A04.71 Enterocolitis due to Clostridium difficile, recurrent (principal) | CPT/HCPCS: 99202 ==

== ENCOUNTER → 2021-04-01 13:28 | Outpatient (BNVA) | payer MEDICARE, SELFPAY | PROVIDERS: PCP Internal Medicine Geriatric Medicine; Visit Provider Hospitalist | DX: J45.51 Severe persistent asthma with (acute) exacerbation (principal); K21.00 Gastro-esophageal reflux disease with esophagitis, without bleeding; T78.40XD Allergy, unspecified, subsequent encounter | CPT/HCPCS: 99212 ==

== ENCOUNTER 2021-05-23 14:30 | Outpatient (REF) | payer OTHER, SELFPAY | END 2021-05-23 14:31 | disposition home or self-care (01) | LOC: HO.LAB 14:30 | PROVIDERS: PCP Internal Medicine Geriatric Medicine; Visit Provider Internal Medicine Gastroenterology | DX: Z13.89 Encounter for screening for other disorder (principal) ==

== ENCOUNTER 2021-05-24 11:35 | Outpatient (REF) | payer OTHER, SELFPAY ==
[2021-05-24 12:41] LABS: CDiff Gene PCR NEGATIVE (Negative)
== END 2021-05-24 11:36 | disposition home or self-care (01) ==
LOC: HO.LNP 11:35
PROVIDERS: Visit Provider Internal Medicine Gastroenterology
DX: R19.8 Other specified symptoms and signs involving the digestive system and abdomen (principal)
CPT/HCPCS: 87493

== ENCOUNTER → 2021-07-01 10:56 | Outpatient (BNVA) | payer OTHER, SELFPAY | PROVIDERS: PCP Internal Medicine Geriatric Medicine; Visit Provider Hospitalist | DX: J45.50 Severe persistent asthma, uncomplicated (principal); T78.40XA Allergy, unspecified, initial encounter; K21.00 Gastro-esophageal reflux disease with esophagitis, without bleeding; Z79.899 Other long term (current) drug therapy | CPT/HCPCS: 99212 ==

== ENCOUNTER 2021-08-01 13:28 | Outpatient (REF) | payer OTHER, SELFPAY ==
[2021-08-01 14:29] LABS: Anion Gap 12 (12-20); Blood Urea Nitrogen 16 mg/dL (9-16); Calcium 9.6 mg/dL (8.4-10.2); Carbon Dioxide 28 mmol/L (22-29); Chloride 105 mmol/L (96-108); Estimated Glomerular Filt Rate > 60; Potassium 3.9 mmol/L (3.3-5.1); Sodium 141 mmol/L (135-145)
[2021-08-01 14:31] LABS: Appearance Urine HAZY; Color Urine YELLOW; Glucose Urine UA NEG (NEG); Leukocyte Esterase Urine TRACE (NEG); Nitrite Urine NEG (NEG); Urine Blood NEG (NEG); Urine Ketones NEG (NEG); Urine Protein NEG (NEG-TRACE)
[2021-08-01 15:00] LABS: RBC Urine 0-2 /HPF (0); Squamous Epithelial Cell Urine 2+ /LPF; WBC Urine 0-2 /HPF (0-4)
[2021-08-01 15:02] LABS: Creatinine Urine 56.68 mg/dL; Microalbumin Urine < 5.0 mg/L; Total Protein Urine Random < 7 mg/dL (<12)
== END 2021-08-01 13:29 | disposition home or self-care (01) ==
LOC: HO.LAB 13:28
PROVIDERS: PCP Internal Medicine Geriatric Medicine; Visit Provider Internal Medicine Nephrology
DX: I10 Essential (primary) hypertension (principal)
CPT/HCPCS: 36415; 80051; 81001; 81003; 82043; 82310; 82565; 84156; 84520

== ENCOUNTER → 2021-08-30 10:37 | Outpatient (BNVA) | payer OTHER, SELFPAY | PROVIDERS: PCP Internal Medicine Geriatric Medicine; Visit Provider Hospitalist | DX: J45.50 Severe persistent asthma, uncomplicated (principal); T78.40XA Allergy, unspecified, initial encounter; K21.00 Gastro-esophageal reflux disease with esophagitis, without bleeding; Z79.899 Other long term (current) drug therapy | CPT/HCPCS: 99212 ==

== ENCOUNTER → 2021-10-18 08:30 | Outpatient (BNVA) | payer OTHER, SELFPAY | PROVIDERS: PCP Internal Medicine Geriatric Medicine; Visit Provider Internal Medicine Gastroenterology | DX: R10.13 Epigastric pain (principal); A08.8 Other specified intestinal infections; A04.8 Other specified bacterial intestinal infections | CPT/HCPCS: 99212 ==

== ENCOUNTER 2021-10-27 15:30 | Emergency (ER) | payer OTHER, SELFPAY ==
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
[2021-10-27 15:55] VITALS: BP 165/85; PULSE 74; RESP 16; TEMP 36.6; O2SAT 99; BMI 23.0
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
== END 2021-10-27 18:10 | disposition home or self-care (01) ==
PROVIDERS: Emergency Provider Internal Medicine; PCP Internal Medicine Geriatric Medicine
DX: S13.4XXA Sprain of ligaments of cervical spine, initial encounter (principal); S16.1XXA Strain of muscle, fascia and tendon at neck level, initial encounter; M54.2 Cervicalgia; M54.6 Pain in thoracic spine; M54.50 Low back pain, unspecified; V43.52XA Car driver injured in collision with other type car in traffic accident, initial encounter; Y93.9 Activity, unspecified; Y92.410 Unspecified street and highway as the place of occurrence of the external cause; Y99.9 Unspecified external cause status; Z79.899 Other long term (current) drug therapy
CPT/HCPCS: 72040; 72072; 72100; 99282; 99283

== ENCOUNTER 2021-10-30 11:20 | Outpatient (REF) | payer OTHER, SELFPAY ==
--- NOTE | ~2021-10-30 | US_ITS ---
EXAMINATION: US VENOUS ULTRASOUND WITH DOPPLER LOWER EXTREMITY, BILATERAL CLINICAL INFORMATION: Pain COMPARISON: None TECHNIQUE: Ultrasound of the deep veins is performed from the right and left hip to the calf with compression sonography and color and pulse Doppler assessment. Spectral analysis with color-flow imaging is performed. FINDINGS: RIGHT: There is normal venous compression and respiratory variation and augmented flow. The visualized common femoral vein, superficial femoral vein, profunda femoral vein, popliteal vein, and the trifurcation region shows no evidence of deep venous thrombosis. There is no significant popliteal fossa cyst. LEFT: There is normal venous compression and respiratory variation and augmented flow. The visualized common femoral vein, superficial femoral vein, profunda femoral vein, popliteal vein, and the trifurcation region shows no evidence of deep venous thrombosis. There is no significant popliteal fossa cyst. If the patient's symptoms persist, followup ultrasound in 5 days 7 days might be of value to exclude proximal propagation from a non-visualized calf vein. US/US venous duplex LE BI IMPRESSION: No DVT demonstrated in the right and left lower extremity.
[2021-10-30 13:02] LABS: MANUAL DIFF FLAG NO
[2021-10-30 13:06] LABS: Basophils Absolute Auto 0.1 X10*3/uL (0.0-0.2); Basophils Percent Auto 0.8 % (0-2); Eosinophils Absolute Auto 0.1 X10*3/uL (0.0-0.4); Eosinophils Percent Auto 1.5 % (0-4); Hematocrit 42.6 % (37.0-47.0); Imm Gran Abs Auto 0.02 X10*3/uL (0.00-0.03); Imm Gran Pct Auto 0.3 % (0.0-0.4); Lymphocytes Absolute Auto 2.3 X10*3/uL (1.2-4.9); Lymphocytes Percent Auto 32.3 % (20-40); Mean Corpuscular HGB Conc 32.9 g/dl (31.0-35.0); Mean Corpuscular Hemoglobin 25.8 pg (27.0-33.0); Mean Corpuscular Volume 78.6 fL (80.0-98.0); Mean Platelet Volume 9.6 fL (9.4-12.3); Monocytes Absolute Auto 0.5 X10*3/uL (0.1-1.2); Monocytes Percent Auto 6.6 % (2-11); Neutrophils Absolute Auto 4.2 x10*3/uL (2.0-8.3); Neutrophils Percent Auto 58.5 % (45-73); Platelet Count 270 X10*3/uL (160-400); Red Blood Count 5.42 X10*6/uL (4.20-5.50); Red Cell Distribution Width 13.8 % (11.0-16.0); White Blood Count 7.2 X10*3/uL (4.8-10.8)
[2021-10-30 13:46] LABS: Alanine Aminotransferase 15 U/L (0-31); Albumin Level 4.4 g/dL (3.5-5.0); Alkaline Phosphatase 87 U/L (39-117); Anion Gap 16 (12-20); Aspartate Amino Transferase 17 U/L (5-31); Bilirubin Total 0.5 mg/dL (0.0-1.0); Blood Urea Nitrogen 13 mg/dL (9-16); C Reactive Protein 0.31 mg/dL (< or = 0.50); Calcium 9.6 mg/dL (8.4-10.2); Carbon Dioxide 27 mmol/L (22-29); Chloride 104 mmol/L (96-108); Estimated Glomerular Filt Rate > 60; Ferritin 48 ng/mL (10-250); Glucose Random 98 mg/dL (60-115); Potassium 3.6 mmol/L (3.3-5.1); Sodium 143 mmol/L (135-145); Total Protein 7.4 g/dL (6.5-8.0)
[2021-10-30 14:15] LABS: Appearance Urine Clear; Color Urine Yellow; Glucose Urine UA Negative (Negative); Leukocyte Esterase Urine Negative (Negative); Nitrite Urine Negative (Negative); PH 5.5 (5.0-9.0); Specific Gravity - Urine 1.015 (1.005-1.025); Urine Blood Negative (Negative); Urine Ketones Negative (Negative); Urine Protein Negative (Neg-Trace)
[2021-10-30 14:16] LABS: Folate 17.8 ng/mL (> or = 4.0); Vitamin B12 818 pg/mL (200-900)
[2021-11-04 17:26] LABS: Calprotectin, Fecal 12 mcg/g
[2021-11-08 00:02] LABS: Pancreatic Elastase-1 >500 mcg/g
== END 2021-10-30 11:21 | disposition home or self-care (01) ==
LOC: HO.US 11:20
PROVIDERS: Absent Provider Internal Medicine Gastroenterology; Visit Provider Emergency Medicine
DX: M79.604 Pain in right leg (principal); M79.605 Pain in left leg; A04.8 Other specified bacterial intestinal infections; R19.7 Diarrhea, unspecified; R30.0 Dysuria; K75.81 Nonalcoholic steatohepatitis (NASH)
CPT/HCPCS: 36415; 80053; 81003; 82607; 82656; 82728; 82746; 83088; 83520; 83993; 85025; 86140; 93970

== ENCOUNTER → 2021-11-01 08:12 | Outpatient (BNVA) | payer OTHER, SELFPAY | PROVIDERS: PCP Internal Medicine Geriatric Medicine; Visit Provider Internal Medicine Gastroenterology | DX: Z11.0 Encounter for screening for intestinal infectious diseases (principal) | CPT/HCPCS: 99211 ==

== ENCOUNTER 2021-11-01 16:38 | Outpatient (REF) | payer OTHER, SELFPAY ==
[2021-11-02 11:47] LABS: H Pylori Breath Test Negative (Negative)
== END 2021-11-01 16:39 | disposition home or self-care (01) ==
LOC: HO.LNP 16:38
PROVIDERS: Visit Provider Internal Medicine Gastroenterology
DX: A04.8 Other specified bacterial intestinal infections (principal); R19.7 Diarrhea, unspecified
CPT/HCPCS: 83013

== ENCOUNTER 2021-11-21 08:59 | Outpatient (REF) | payer OTHER, SELFPAY ==
--- NOTE | 2021-11-21 09:30 | EMG_ITS ---
Right tibial and peroneal motor studies were performed. Right superficial peroneal and sural sensory studies were performed. Right tibial H-reflex was obtained. Right lateral and medial plantar studies were performed and EMG was performed on paraspinal muscles. IMPRESSION: This study did not reveal any significant abnormality to suggest peripheral neuropathy or radiculopathy. MD CAREY Aguilar/ALVINO / [id number]
== END 2021-11-21 09:00 | disposition home or self-care (01) ==
LOC: HO.NEURO 08:59
PROVIDERS: PCP Internal Medicine Geriatric Medicine; Visit Provider Internal Medicine Geriatric Medicine
DX: R20.2 Paresthesia of skin (principal)
CPT/HCPCS: 95886; 95910

== ENCOUNTER 2021-12-05 10:07 | Outpatient (REF) | payer OTHER, SELFPAY ==
--- NOTE | ~2021-12-05 | US_ITS ---
EXAMINATION: US ABDOMEN COMPLETE CLINICAL INFORMATION: Right upper quadrant, epigastrium, left flank pain. COMPARISON: CT abdomen and pelvis 12/21/2019. Ultrasound abdomen complete 08/08/2019 and 10/15/2018. TECHNIQUE: Real-time imaging of the abdominal viscera. FINDINGS: PANCREAS: Normal. ABDOMINAL AORTA: The proximal and mid abdominal aorta is of normal caliber. There is minimal atherosclerosis in the distal aortic segment. INFERIOR VENA CAVA: Visualized portions are normal. LIVER: Normal. The liver is normal in size. The liver contour is normal. Parenchymal echogenicity is normal. No focal hepatic lesion. There is no intrahepatic biliary duct dilatation seen. GALLBLADDER: Surgically absent. COMMON BILE DUCT: Normal in caliber measuring 0.7 cm in diameter. RIGHT KIDNEY: Normal. No hydronephrosis. No renal calculi or focal parenchymal lesions. The kidney measures 11.3 cm in maximum dimension. LEFT KIDNEY: Normal. No hydronephrosis. No renal calculi or focal parenchymal lesions. The kidney measures 10.5 cm in maximum dimension. SPLEEN: Normal. The spleen measures 9.5 cm in maximum dimension. FREE FLUID: None. US/US abdomen complete IMPRESSION: Mild atherosclerotic changes of the distal abdominal aorta. Rest of the abdominal ultrasound is unremarkable. The gallbladder has been surgically removed.
== END 2021-12-05 10:08 | disposition home or self-care (01) ==
LOC: HO.US 10:07
PROVIDERS: Visit Provider Internal Medicine Gastroenterology
DX: R10.13 Epigastric pain (principal); R19.7 Diarrhea, unspecified; A04.8 Other specified bacterial intestinal infections
CPT/HCPCS: 76700

== ENCOUNTER → 2021-12-24 10:48 | Outpatient (BNVA) | payer OTHER, SELFPAY | PROVIDERS: PCP Internal Medicine Geriatric Medicine; Visit Provider Surgery Vascular Surgery | DX: I83.11 Varicose veins of right lower extremity with inflammation (principal) | CPT/HCPCS: 99212 ==

== ENCOUNTER 2022-01-08 14:00 | Outpatient (REF) | payer OTHER, SELFPAY ==
--- NOTE | ~2022-01-08 | MM_ITS ---
EXAMINATION: MM SCREENING DIGITAL BREAST TOMOSYNTHESIS, BILATERAL CLINICAL INFORMATION: Screening. Asymptomatic. Prior history reduction mammoplasty, 1994. COMPARISON: Mammography: 03/05/2020, 07/23/2018, 05/04/2017 TECHNIQUE: Digital breast tomosynthesis is performed in both the craniocaudal and mediolateral oblique views along with computer-aided detection (CAD). Synthesized 2D images are generated from the tomosynthesis. FINDINGS: There are scattered areas of fibroglandular density (ACR BI-RADS breast composition Category b). There are no significant masses, abnormal calcifications, or other abnormalities. No developing density or interval architectural abnormality. There are scattered small round and rim calcifications again seen predominantly anterior breasts consistent with the reduction mammoplasty. Incidental vascular calcifications are also present. The axilla and skin contours are unremarkable. No significant changes. MM/MM tomosynthesis screening BI IMPRESSION: No mammographic evidence of malignancy. ASSESSMENT: BI-RADS 2: Benign RECOMMENDATION: Routine annual mammography screening. This patient's information was entered into a reminder system with a target due date for their next mammogram.
== END 2022-01-08 14:01 | disposition home or self-care (01) ==
LOC: HO.MAMMO 14:00
PROVIDERS: PCP Internal Medicine Geriatric Medicine; Visit Provider Internal Medicine Geriatric Medicine
DX: Z12.31 Encounter for screening mammogram for malignant neoplasm of breast (principal)
CPT/HCPCS: 77063; 77067

== ENCOUNTER → 2022-02-10 12:35 | Outpatient (BNVA) | payer OTHER, SELFPAY | PROVIDERS: PCP Internal Medicine Geriatric Medicine; Visit Provider Internal Medicine Gastroenterology | DX: R10.11 Right upper quadrant pain (principal); K21.9 Gastro-esophageal reflux disease without esophagitis; Z90.49 Acquired absence of other specified parts of digestive tract | CPT/HCPCS: 99212 ==

== ENCOUNTER 2022-02-13 08:08 | Outpatient (REF) | payer OTHER, SELFPAY | END 2022-02-13 08:09 | disposition home or self-care (01) | LOC: HO.US 08:08 | PROVIDERS: Visit Provider Surgery Vascular Surgery | DX: I83.11 Varicose veins of right lower extremity with inflammation (principal) | CPT/HCPCS: 93970 ==

== ENCOUNTER → 2022-03-07 10:02 | Outpatient (BNVA) | payer OTHER, SELFPAY | PROVIDERS: PCP Internal Medicine Geriatric Medicine; Visit Provider Hospitalist | DX: J45.50 Severe persistent asthma, uncomplicated (principal); K21.00 Gastro-esophageal reflux disease with esophagitis, without bleeding; J01.01 Acute recurrent maxillary sinusitis; T78.40XA Allergy, unspecified, initial encounter | CPT/HCPCS: 99212 ==

== ENCOUNTER → 2022-03-18 10:44 | Outpatient (BNVA) | payer OTHER, SELFPAY | PROVIDERS: PCP Internal Medicine Geriatric Medicine; Visit Provider Surgery Vascular Surgery | DX: I83.12 Varicose veins of left lower extremity with inflammation (principal) | CPT/HCPCS: 99212 ==

== ENCOUNTER 2022-04-24 16:07 | Emergency (ER) | payer OTHER, SELFPAY ==
--- NOTE | ~2022-04-24 | CT_ITS ---
EXAMINATION: CT HEAD WITHOUT CONTRAST CLINICAL INFORMATION: Headache. Vomiting. COMPARISON: CT head from 10/06/2020. TECHNIQUE: Contiguous axial imaging was performed from the skull base to vertex without intravenous administration of contrast. This CT examination was performed using dose optimization techniques as appropriate, variously including the following: *Automated exposure control. *Adjustment of mA and/or kV according to patient size (this includes techniques or standardized protocols for targeted exams where dose is matched to indication/reason for exam; i.e. extremities or head). *Use of iterative reconstruction technique. DLP: 1038 mGy-cm FINDINGS: There is no evidence of acute intracranial hemorrhage or edematous territorial infarction. Taylor-white matter differentiation is preserved. A few foci of hypoattenuation in the periventricular and deep white matter are consistent with mild microangiopathy. The ventricles are normal in morphology and size. No evidence for obstructive hydrocephalus. The sella turcica is mildly expanded with partial flattening of the pituitary gland. The cerebellar tonsils are normally positioned. No abnormal mass effect or midline shift. No extra-axial fluid collections. No acute soft tissue or osseous abnormalities. Moderate degenerative arthropathy of the atlantodental articulation. Advanced degenerative arthropathy of the right atlantoaxial articulation. The mastoid air cells and visualized paranasal sinuses are clear. CT/CT head/brain wo IV con IMPRESSION: 1. No evidence of acute intracranial hemorrhage or edematous territorial infarction. 2. Mild underlying microangiopathy.
--- NOTE | ~2022-04-24 | CT_ITS ---
EXAMINATION: CT ABDOMEN AND PELVIS WITHOUT CONTRAST CLINICAL INFORMATION: Nausea vomiting and severe abdominal pain COMPARISON: CT abdomen and pelvis 12/21/2019 TECHNIQUE: Multidetector volumetric imaging was performed from the superior aspect of the liver through the pubic symphysis. Sagittal and coronal reformatted images were obtained on the technologist's workstation. This CT examination was performed using dose optimization techniques as appropriate, variously including the following: *Automated exposure control *Adjustment of mA and/or kV according to patient size (this includes techniques or standardized protocols for targeted exams where dose is matched to indication/reason for exam; i.e. extremities or head) *Use of iterative reconstruction technique DLP: 391 mGy-cm FINDINGS: LUNG BASES: The visualized lung bases are unremarkable. LIVER, GALLBLADDER, AND BILIARY TREE: Small calcified granuloma in the inferior right liver lobe. No other liver lesion. Normal liver size and attenuation. Status post cholecystectomy. Extra hepatic bile duct measures up to 0.8 cm in diameter, within normal limits. No intrahepatic biliary ductal dilation. PANCREAS: Unchanged coarse linear calcification along the pancreatic body. Pancreas otherwise unremarkable. SPLEEN: Unremarkable. ADRENAL GLANDS: Unremarkable. KIDNEYS AND URETERS: The kidneys are normal in size, shape, and attenuation. No hydronephrosis, hydroureter, or calculi seen. No perinephric stranding. BLADDER: Unremarkable. GASTROINTESTINAL TRACT: No dilated bowel loops. No bowel wall thickening. Appendix not visualized. No inflammatory change the base of the cecum. No free air or ascites. ABDOMINAL WALL: No significant hernia is appreciated. LYMPH NODES: No lymphadenopathy. VASCULAR: Normal caliber abdominal aorta. Moderate vascular calcifications. PELVIC VISCERA: Status post hysterectomy. OSSEOUS STRUCTURES: No acute fracture or suspicious osseous lesion. Vertebral body hemangioma noted at T12. Moderate disc degenerative change at L5-S1. Redemonstrated multiple nodular and linear soft tissue densities in the subcutaneous fat overlying the buttock bilaterally, presumably sequela of prior injections. CT/CT abdomen pelvis wo IV con IMPRESSION: No acute intra-abdominal process identified.
[2022-04-24 16:16] VITALS: BP 188/93; PULSE 85; O2SAT 98
[2022-04-24 16:19] VITALS: BP 152/85; PULSE 80; RESP 16; TEMP 36.6; O2SAT 98; BMI 23.0
--- NOTE | 2022-04-24 16:19 | ED_ITS ---
HPI - Abdominal Pain General Chief Complaint: Dizziness <Jessica Valencia CNP - Last Filed: 04/24/22 16:22> Stated Complaint: abdominal pain <Jessica Valencia CNP - Last Filed: 04/24/22 16:22> Time Seen by Provider: 04/24/22 17:16 <Jessica Valencia CNP - Last Filed: 04/24/22 16:22> Source: patient and EMS <GLENDA Rebolledo - Last Filed: 04/24/22 22:05> Mode of arrival: EMS <GLENDA Rebolledo - Last Filed: 04/24/22 22:05> Limitations: no limitations <GLENDA Rebolledo Last Filed: 04/24/22 22:05> History of Present Illness HPI narrative: 66-year-old female with history of hypertension and migraines presents with a headache (diffuse without dizziness, trauma or vision changes), vomiting, nausea, epigastric abd discomfort, dizziness ( room spinning) starting this morning. Patient states that she got a migraine early this morning while she was lying down, felt like her typical but wasnt going away. When she stood up she became dizzy and then nauseous and then vomited. Patient states she has been vomiting and has had her headache all day. Dizziness has improved. Denies neck pain, fevers, chills, chest pain, shortness of breath, changes in bowel habits and urination, weakness, inability to walk, changes in gait, changes in speech. NIH stroke scale 0 <GLENDA Rebolledo Last Filed: 04/24/22 22:05> Related Data Home Medications: Home Medications Medication Instructions Recorded Confirmed cholecalciferol (vitamin D3) 50 1 tab PO DAILY 12/14/19 08/21/20 mcg (2,000 unit) tablet hydrochlorothiazide 12.5 mg capsule 1 cap PO DAILY 12/14/19 08/21/20 ketotifen fumarate 0.025 % (0.035 1 drp ophthalmic (eye) BID PRN 12/14/19 08/21/20 %) eye drops Allergy Symptoms levalbuterol tartrate 45 2 puff inhalation Q4H PRN Wheezing 12/14/19 08/21/20 mcg/actuation aerosol inhaler lorazepam 1 mg tablet 1 tab PO BID 12/14/19 08/21/20 mometasone-formoterol HFA 200 2 puff inhalation BID 12/14/19 08/21/20 mcg-5 mcg/actuation aerosol inhaler (Dulera) sumatriptan succinate 50 mg tablet 50 mg PO Q2-4H PRN Migraine 12/14/19 08/21/20 (Imitrex) Headache amitriptyline 50 mg tablet 50 mg PO BEDTIME 03/27/20 08/21/20 valsartan 80 mg tablet 80 mg PO DAILY 05/21/20 08/21/20 fluoxetine 20 mg capsule 20 mg PO DAILY 11/22/20 fluticasone propionate 50 2 spray intranasal DAILY 11/22/20 mcg/actuation nasal spray,suspension blood pressure test kit-large #1 ea 12/28/20 tiotropium bromide 1.25 2 puff inhalation DAILY 12/28/20 mcg/actuation mist for inhalation (Spiriva Respimat) azelastine 137 mcg (0.1 %) nasal 2 spray intranasal BID 02/10/22 spray aerosol fexofenadine 180 mg tablet 180 mg PO DAILY 02/10/22 Previous Rx's Medication Instructions Recorded epinephrine 0.3 mg/0.3 mL 0.3 ml IM DIRECTED anaphylaxis 08/14/20 injection, auto-injector (EpiPen 30 days #2 ea 2-Jeremi) plecanatide 3 mg tablet (Trulance) 3 mg PO DAILY 30 days #30 tabs 08/22/20 albuterol sulfate 90 mcg/actuation 2 puff PO Q4H PRN Wheezing #8.5 01/29/21 aerosol inhaler grams inhalational spacing device #1 ea 01/29/21 (Aerochamber MV spacer) loperamide 2 mg capsule (Imodium 2 mg PO Q6H PRN loose stool 10 02/22/21 A-D) days #30 caps levalbuterol HCl 1.25 mg/3 mL 1.25 mg (3 mL) inhalation Q6H PRN 03/04/21 solution for nebulization (Xopenex) shortness of breath or wheezing 30 days #360 mL cyclobenzaprine 5 mg tablet 5 mg PO BEDTIME PRN muscle spasm 10/27/21 #10 tabs gabapentin 100 mg capsule 100 mg PO BEDTIME #30 caps 02/10/22 lansoprazole 30 mg capsule,delayed 30 mg PO DAILY #90 caps 02/10/22 release budesonide 0.5 mg/2 mL suspension 0.5 mg (2 mL) inhalation DAILY 03/04/22 for nebulization #180 mL montelukast 10 mg tablet 10 mg PO DAILY #90 tabs 03/04/22 doxycycline monohydrate 100 mg 100 mg PO BID 14 days #28 tabs 03/07/22 tablet prednisone 10 mg tablet 10 mg PO DAILY #30 tabs 03/07/22 tezepelumab-ekko 210 mg/1.91 mL 210 mg (1.91 mL) subcut Q4W 12 03/14/22 (110 mg/mL) subcutaneous syringe months #24.83 mL (Tezspire) dicyclomine 10 mg capsule 10 mg PO BID #180 caps 03/18/22 sucralfate 100 mg/mL oral 10 ml PO BID #1,000 mL 03/18/22 suspension azithromycin 500 mg tablet 500 mg PO DAILY 3 days #3 tabs 03/20/22 prednisone 10 mg tablet See Rx Instructions PO DAILY 18 03/20/22 days #63 tabs ketorolac 10 mg tablet 10 mg PO TID PRN pain 5 days #15 04/24/22 tabs ondansetron 4 mg disintegrating 4 mg PO Q6H PRN nausea and 04/24/22 tablet vomiting #14 tabs <Jessica Valencia, COUNTRY DIRECTOR - Last Filed: 04/24/22 16:22> Allergies/Adverse Reactions: Allergies Allergy/AdvReac Type Severity Reaction Status Date / Time ciprofloxacin [From Cipro] Allergy Intermediate HIVES/ITCHI Verified 03/18/22 10:52 NG oxycodone [Percocet] Allergy Intermediate Hives Verified 03/18/22 10:52 Penicillins Allergy Intermediate HIVES/ITCHI Verified 03/18/22 10:52 NG simvastatin [Simvastatin] Allergy Intermediate HIVES/ITCHI Verified 03/18/22 10:52 NIG vancomycin [Vancomycin] Allergy Intermediate HIVES/ITCHI Verified 03/18/22 10:52 NG latex Allergy Mild Rash Verified 03/18/22 10:52 milnacipran [From Savella] Allergy Mild Hives Verified 03/18/22 10:52 Sulfa (Sulfonamide Allergy Mild Shortness Verified 03/18/22 10:52 Antibiotics) of Breath dupilumab [From Dupixent Pen] AdvReac Intermediate neuropathy Verified 03/18/22 10:52 <Jessica Valencia CNP - Last Filed: 04/24/22 16:22> Review of Systems Review of Systems Constitutional : No Weight loss, No Fever, No Chills, No Fatigue, No Malaise ENT/Mouth : No sore throat, No Rhinorrhea Eyes: No Eye Pain, No Swelling, No Redness Cardiovascular : No Chest Pain, No SOB, No Dyspnea on Exertion, No Orthopnea, No Edema, No Palpitations Respiratory : No Cough, No Sputum, No Wheezing Gastrointestinal : + Nausea, + Vomiting, No Diarrhea, No Constipation, No abdominal Pain, No Hematochezia, No Melena Genitourinary : No Dysuria, No Urinary Frequency, No Hematuria, Musculoskeletal : No joint pain, No Myalgias, No Joint Swelling Skin : No Skin Lesions, No rash Neuro : No Weakness, No Numbness, + Dizziness, + Headache Psych : No Anxiety/Panic, No Depression All other systems reviewed and are negative <GLENDA Rebolledo - Last Filed: 04/24/22 22:05> Yes all other systems are reviewed and are negative <GLENDA Rebolledo - Last Filed: 04/24/22 22:05> [facility] Past Medical History Attestation statement: The following information was validated with the patient. <GLENDA Rebolledo - Last Filed: 04/24/22 22:05> Source: old records reviewed and nursing notes reviewed <GLENDA Rebolledo - Last Filed: 04/24/22 22:05> Medical History: Medical History Allergic rhinitis VERA positive Anxiety Asthma Cervicalgia Chronic pain of left knee Depression DVT (deep venous thrombosis) Dyspnea Fibromyalgia GERD (gastroesophageal reflux disease) History of anesthesia problem History of vertigo Migraine Osteoarthritis Rash Sinusitis Tachycardia URI (upper respiratory infection) Varicose vein of leg <Jessica Valencia CNP - Last Filed: 04/24/22 16:22> Surgical History: Surgical History H/O varicose vein ligation and stripping History of esophagogastroduodenoscopy (EGD) History of repair of right rotator cuff Hx laparoscopic cholecystectomy Hx of appendectomy Hx of bilateral breast reduction surgery Hx of colonoscopy Hx of hemorrhoidectomy Hx of hysterectomy Status post right rotator cuff repair <Jessica Valencia CNP - Last Filed: 04/24/22 16:22> Family History Family History: Family History Father No problems noted. Mother Family history of high blood pressure Dementia <Jessica Valencia CNP - Last Filed: 04/24/22 16:22> Social History Social History: Social History Household Members: None Alcohol intake: never Patient Tobacco Use Status: Never used Tobacco Smoked in Last 30 Days: No Use of substances other than those prescribed or required for medical reasons: No Advance Directives: No Advance Directives Information Provided: Yes Advance Directives Date on File: 04/03/18 Current occupational status: unemployed Current occupation: Left Handed <Jessica Valencia CNP - Last Filed: 04/24/22 16:22> Physical Exam ED Vital Signs: Vital Signs - 24 hr 04/24/22 16:19 04/24/22 18:50 04/24/22 21:40 Temperature 97.9 F 98.0 F Pulse Rate 80 77 96 Respiratory Rate 16 16 16 Blood Pressure 152/85 H 166/83 H 159/86 H Pulse Oximetry 98 97 97 Oxygen Delivery Method Room Air Room Air Room Air BMI result Body Mass Index 23.0 <Jessica Valencia CNP - Last Filed: 04/24/22 16:22> Vital Signs - 24 hr 04/24/22 16:19 04/24/22 18:50 04/24/22 21:40 Temperature 97.9 F 98.0 F Pulse Rate 80 77 96 Respiratory Rate 16 16 16 Blood Pressure 152/85 H 166/83 H 159/86 H Pulse Oximetry 98 97 97 Oxygen Delivery Method Room Air Room Air Room Air BMI result Body Mass Index 23.0 VSS <GLENDA Rebolledo - Last Filed: 04/24/22 22:05> Appearance: Alert.? Oriented X3.? No acute distress.? Head: Normocephalic, atraumatic, no step-offs or deformities Eyes: Pupils equal, round and reactive to light.? Neck: Normal inspection.? Neck supple.? CVS: Normal heart rate and rhythm.? Pulses normal.? Respiratory: No respiratory distress.? Breath sounds normal.? Abdomen: Soft and nontender.? Skin: Skin warm and dry.? Normal skin color.? Normal skin turgor.? Extremities: No lower extremity edema.? No calf ttp. 5/5 strength to bilateral upper and lower extremities Back: No midline tenderness, no C-spine tenderness, full range of motion, no CVA tenderness bilaterally Neuro: Oriented X 3.? No motor deficit.? No sensory deficit. CN 2-12 intact . Normal [id number], [id number], steady tandem gait normal coordination. <GLENDA Rebolledo - Last Filed: 04/24/22 22:05> Course Course Course Narrative: This is an RME: Additional HPI, ROS, PE not included below will be deferred to primary provider. Patient is a 66 year old female who presents emergency department via EMS with complaint of vomiting yellow emesis, epigastri c pain, headache, reported high blood pressure, dizziness since this morning. Reports that this feels consistent with her migraines. Declines APAP/ibuprofen Plan: sublingual zofran, labs, viral testing, EKG <Jessica Valencia CNP - Last Filed: 04/24/22 16:22> Reevaluation(s) Reevaluation #1: CBC appears to be around patient's baseline. Chemistry with no acute electrolyte abnormalities requiring intervention. Lipase within normal limits. UA without infection. COVID influenza negative. So CT of the head with no evidence of acute intracranial hemorrhage or edematous territorial infarction. Mild underlying microangiopathy. CT of the abdomen pelvis with no acute abd ominal process identified. Patient reports symptomatic relief, feeling better would like to go home, I suspect this was a typical migraine, and possible viral illness. Will discharge home on Toradol for pain and Zofran for nausea vomiting. Educated patient on diagnosis and treatment plan, answered all question, patient verbalizes understanding. At this time patient will be discharged home, advised to return with new or worsening symptoms. Educated on worrisome signs and symptoms and when to return. At this time I feel comfortable discharge home. <GLENDA Rebolledo - Last Filed: 04/24/22 22:05> Time: 22:05 <GLENDA Rebolledo - Last Filed: 04/24/22 22:05> Medical Decision Making Medical Decision Making [facility] Narrative: 66-year-old female presents with nausea, vomiting, headache, dizziness since this morning. Physical exam benign History and physical exam concerning for possible viral illness versus typical migraine, no signs of acute abdomen, stroke, posterior stroke. No signs of meningitis or encephalitis. Plan at this time basic labs, imaging. Will medicate for headache. <GLENDA Rebolledo - Last Filed: 04/24/22 22:05> Differential Diagnosis Differential Diagnoses: The differential diagnosis associated with the presentation includes <GLENDA Rebolledo - Last Filed: 04/24/22 22:05> History and physical exam concerning for possible viral illness versus typical migraine, no signs of acute abdomen, stroke, posterior stroke. No signs of meningitis or encephalitis. <GLENDA Rebolledo - Last Filed: 04/24/22 22:05> Admission/Observation Consideration of admission/observation: Escalation of care including admission/observation considered <GLENDA Rebolledo - Last Filed: 04/24/22 22:05> Unlikely <GLENDA Rebolledo - Last Filed: 04/24/22 22:05> Lab Data [facility] Lab Attestation statement: I reviewed the patient's lab results. <GLENDA Rebolledo - Last Filed: 04/24/22 22:05> Result Diagrams: 04/24/22 17:01 04/24/22 17:01 <Jessica Valencia CNP - Last Filed: 04/24/22 16:22> Labs: Lab Results 04/24/22 04/24/22 04/24/22 Range/Units 17:01 17:01 17:01 WBC 7.9 (4.8-10.8) X10*3/uL RBC 5.20 (4.20-5.50) X10*6/uL Hgb 13.2 (12.0-16.0) g/dl Hct 40.3 (37.0-47.0) % MCV 77.5 L (80.0-98.0) fL MCH 25.4 L (27.0-33.0) pg MCHC 32.8 (31.0-35.0) g/dl RDW 13.7 (11.0-16.0) % Plt Count 244 (160-400) X10*3/uL MPV 9.6 (9.4-12.3) fL Immature Gran % (Auto) 0.4 (0.0-0.4) % Neut % (Auto) 83.6 H (45-73) % Lymph % (Auto) 13.2 L (20-40) % [place] % (Auto) 2.2 (2-11) % Eos % (Auto) 0.0 (0-4) % Baso % (Auto) 0.6 (0-2) % Lymph # (Auto) 1.0 L (1.2-4.9) X10*3/uL [place] # (Auto) 0.2 (0.1-1.2) X10*3/uL Eos # (Auto) 0.0 (0.0-0.4) X10*3/uL Baso # (Auto) 0.1 (0.0-0.2) X10*3/uL Abs Immat Gran (auto) 0.03 (0.00-0.03) X10*3/uL Absolute Neuts (auto) 6.6 (2.0-8.3) x10*3/uL Absolute Nucleated RBC 0.000 (0.0-0.012) X10*3/uL Nucleated RBC % (auto) 0.0 (0.0-0.2) /100WBC Sodium 141 (135-145) mmol/L Potassium 3.5 (3.3-5.1) mmol/L Chloride 106 (96-108) mmol/L Carbon Dioxide 27 (22-29) mmol/L Anion Gap 12 (12-20) BUN 12 (9-16) mg/dL Creatinine 0.59 (0.5-1.4) mg/dL Estim Creat Clear Calc 76.5 Estimated GFR > 60 Random Glucose 130 H (60-115) mg/dL Calcium 9.2 (8.4-10.2) mg/dL Total Bilirubin 0.5 (0.0-1.0) mg/dL AST 16 (5-31) U/L ALT 13 (0-31) U/L Alkaline Phosphatase 89 (39-117) U/L Total Protein 7.0 (6.5-8.0) g/dL Albumin 4.2 (3.5-5.0) g/dL Lipase 13 (8-78) U/L Urine Color Urine Appearance Urine pH (5.0-9.0) Ur Specific [place] (1.005-1.025) Urine Protein (Neg-Trace) mg/dL Urine Glucose (UA) (Negative) mg/dL Urine Ketones (Negative) mg/dL Urine Blood (Negative) Urine Nitrite (Negative) Ur Leukocyte Esterase (Negative) Urine RBC (0-2) /HPF Urine WBC (0-5) /HPF Ur Squamous Epith Cells (0-2) /HPF Urine Bacteria (None Seen) Hyaline Casts (0-2) /LPF COVID-19 (KATHY) (Negative) COVID-19 Clin Com Influenza Type A (JOEL) Negative (Negative) Influenza Type B (JOEL) Negative (Negative) Influenza A & B Note See Note 04/24/22 04/24/22 Range/Units 17:01 20:53 WBC (4.8-10.8) X10*3/uL RBC (4.20-5.50) X10*6/uL Hgb (12.0-16.0) g/dl Hct (37.0-47.0) % MCV (80.0-98.0) fL MCH (27.0-33.0) pg MCHC (31.0-35.0) g/dl RDW (11.0-16.0) % Plt Count (160-400) X10*3/uL MPV (9.4-12.3) fL Immature Gran % (Auto) (0.0-0.4) % Neut % (Auto) (45-73) % Lymph % (Auto) (20-40) % [place] % (Auto) (2-11) % Eos % (Auto) (0-4) % Baso % (Auto) (0-2) % Lymph # (Auto) (1.2-4.9) X10*3/uL [place] # (Auto) (0.1-1.2) X10*3/uL Eos # (Auto) (0.0-0.4) X10*3/uL Baso # (Auto) (0.0-0.2) X10*3/uL Abs Immat Gran (auto) (0.00-0.03) X10*3/uL Absolute Neuts (auto) (2.0-8.3) x10*3/uL Absolute Nucleated RBC (0.0-0.012) X10*3/uL Nucleated RBC % (auto) (0.0-0.2) /100WBC Sodium (135-145) mmol/L Potassium (3.3-5.1) mmol/L Chloride (96-108) mmol/L Carbon Dioxide (22-29) mmol/L Anion Gap (12-20) BUN (9-16) mg/dL Creatinine (0.5-1.4) mg/dL Estim Creat Clear Calc Estimated GFR Random Glucose (60-115) mg/dL Calcium (8.4-10.2) mg/dL Total Bilirubin (0.0-1.0) mg/dL AST (5-31) U/L ALT (0-31) U/L Alkaline Phosphatase (39-117) U/L Total Protein (6.5-8.0) g/dL Albumin (3.5-5.0) g/dL Lipase (8-78) U/L Urine Color Yellow Urine Appearance Clear Urine pH 6.5 (5.0-9.0) Ur Specific [place] 1.015 (1.005-1.025) Urine Protein Negative (Neg-Trace) mg/dL Urine Glucose (UA) Negative (Negative) mg/dL Urine Ketones Negative (Negative) mg/dL Urine Blood Trace H (Negative) Urine Nitrite Negative (Negative) Ur Leukocyte Esterase Negative (Negative) Urine RBC 0-2 (0-2) /HPF Urine WBC 0-5 (0-5) /HPF Ur Squamous Epith Cells 0-2 (0-2) /HPF Urine Bacteria None Seen (None Seen) Hyaline Casts 0-2 (0-2) /LPF COVID-19 (KATHY) Negative (Negative) COVID-19 Clin Com See Note Influenza Type A (JOEL) (Negative) Influenza Type B (JOEL) (Negative) Influenza A & B Note <Jessica Valencia, COUNTRY DIRECTOR - Last Filed: 04/24/22 16:22> Lab Results 04/24/22 04/24/22 04/24/22 Range/Units 17:01 17:01 17:01 WBC 7.9 (4.8-10.8) X10*3/uL RBC 5.20 (4.20-5.50) X10*6/uL Hgb 13.2 (12.0-16.0) g/dl Hct 40.3 (37.0-47.0) % MCV 77.5 L (80.0-98.0) fL MCH 25.4 L (27.0-33.0) pg MCHC 32.8 (31.0-35.0) g/dl RDW 13.7 (11.0-16.0) % Plt Count 244 (160-400) X10*3/uL MPV 9.6 (9.4-12.3) fL Immature Gran % (Auto) 0.4 (0.0-0.4) % Neut % (Auto) 83.6 H (45-73) % Lymph % (Auto) 13.2 L (20-40) % [place] % (Auto) 2.2 (2-11) % Eos % (Auto) 0.0 (0-4) % Baso % (Auto) 0.6 (0-2) % Lymph # (Auto) 1.0 L (1.2-4.9) X10*3/uL [place] # (Auto) 0.2 (0.1-1.2) X10*3/uL Eos # (Auto) 0.0 (0.0-0.4) X10*3/uL Baso # (Auto) 0.1 (0.0-0.2) X10*3/uL Abs Immat Gran (auto) 0.03 (0.00-0.03) X10*3/uL Absolute Neuts (auto) 6.6 (2.0-8.3) x10*3/uL Absolute Nucleated RBC 0.000 (0.0-0.012) X10*3/uL Nucleated RBC % (auto) 0.0 (0.0-0.2) /100WBC Sodium 141 (135-145) mmol/L Potassium 3.5 (3.3-5.1) mmol/L Chloride 106 (96-108) mmol/L Carbon Dioxide 27 (22-29) mmol/L Anion Gap 12 (12-20) BUN 12 (9-16) mg/dL Creatinine 0.59 (0.5-1.4) mg/dL Estim Creat Clear Calc 76.5 Estimated GFR > 60 Random Glucose 130 H (60-115) mg/dL Calcium 9.2 (8.4-10.2) mg/dL Total Bilirubin 0.5 (0.0-1.0) mg/dL AST 16 (5-31) U/L ALT 13 (0-31) U/L Alkaline Phosphatase 89 (39-117) U/L Total Protein 7.0 (6.5-8.0) g/dL Albumin 4.2 (3.5-5.0) g/dL Lipase 13 (8-78) U/L Urine Color Urine Appearance Urine pH (5.0-9.0) Ur Specific [place] (1.005-1.025) Urine Protein (Neg-Trace) mg/dL Urine Glucose (UA) (Negative) mg/dL Urine Ketones (Negative) mg/dL Urine Blood (Negative) Urine Nitrite (Negative) Ur Leukocyte Esterase (Negative) Urine RBC (0-2) /HPF Urine WBC (0-5) /HPF Ur Squamous Epith Cells (0-2) /HPF Urine Bacteria (None Seen) Hyaline Casts (0-2) /LPF COVID-19 (KATHY) (Negative) COVID-19 Clin Com Influenza Type A (JOEL) Negative (Negative) Influenza Type B (JOEL) Negative (Negative) Influenza A & B Note See Note 04/24/22 04/24/22 Range/Units 17:01 20:53 WBC (4.8-10.8) X10*3/uL RBC (4.20-5.50) X10*6/uL Hgb (12.0-16.0) g/dl Hct (37.0-47.0) % MCV (80.0-98.0) fL MCH (27.0-33.0) pg MCHC (31.0-35.0) g/dl RDW (11.0-16.0) % Plt Count (160-400) X10*3/uL MPV (9.4-12.3) fL Immature Gran % (Auto) (0.0-0.4) % Neut % (Auto) (45-73) % Lymph % (Auto) (20-40) % [place] % (Auto) (2-11) % Eos % (Auto) (0-4) % Baso % (Auto) (0-2) % Lymph # (Auto) (1.2-4.9) X10*3/uL [place] # (Auto) (0.1-1.2) X10*3/uL Eos # (Auto) (0.0-0.4) X10*3/uL Baso # (Auto) (0.0-0.2) X10*3/uL Abs Immat Gran (auto) (0.00-0.03) X10*3/uL Absolute Neuts (auto) (2.0-8.3) x10*3/uL Absolute Nucleated RBC (0.0-0.012) X10*3/uL Nucleated RBC % (auto) (0.0-0.2) /100WBC Sodium (135-145) mmol/L Potassium (3.3-5.1) mmol/L Chloride (96-108) mmol/L Carbon Dioxide (22-29) mmol/L Anion Gap (12-20) BUN (9-16) mg/dL Creatinine (0.5-1.4) mg/dL Estim Creat Clear Calc Estimated GFR Random Glucose (60-115) mg/dL Calcium (8.4-10.2) mg/dL Total Bilirubin (0.0-1.0) mg/dL AST (5-31) U/L ALT (0-31) U/L Alkaline Phosphatase (39-117) U/L Total Protein (6.5-8.0) g/dL Albumin (3.5-5.0) g/dL Lipase (8-78) U/L Urine Color Yellow Urine Appearance Clear Urine pH 6.5 (5.0-9.0) Ur Specific [place] 1.015 (1.005-1.025) Urine Protein Negative (Neg-Trace) mg/dL Urine Glucose (UA) Negative (Negative) mg/dL Urine Ketones Negative (Negative) mg/dL Urine Blood Trace H (Negative) Urine Nitrite Negative (Negative) Ur Leukocyte Esterase Negative (Negative) Urine RBC 0-2 (0-2) /HPF Urine WBC 0-5 (0-5) /HPF Ur Squamous Epith Cells 0-2 (0-2) /HPF Urine Bacteria None Seen (None Seen) Hyaline Casts 0-2 (0-2) /LPF COVID-19 (KATHY) Negative (Negative) COVID-19 Clin Com See Note Influenza Type A (JOEL) (Negative) Influenza Type B (JOEL) (Negative) Influenza A & B Note <GLENDA Rebolledo - Last Filed: 04/24/22 22:05> Independent Interpretation I performed an independent interpretation of an: CT Scan (No acute findings on CT of the abdomen and pelvis. CT of the head with no evidence of acute intracranial hemorrhage or edematous territorial infarction.) <GLENDA Rebolledo - Last Filed: 04/24/22 22:05> Radiology Impression Discussion of test interpretation with radiology: I have reviewed the radiologist's reading. <GLENDA Rebolledo - Last Filed: 04/24/22 22:05> Core Measures AMI core measures followed: Yes <GLENDA Rebolledo - Last Filed: 04/24/22 22:05> Measure exclusions: not indicated <GLENDA Rebolledo - Last Filed: 04/24/22 22:05> Medications Administered Discontinued Medications Generic Name Dose Route Start Last Admin Trade Name Kalpesh PRN Reason Stop Dose Admin Diphenhydramine HCl 25 mg 04/24/22 17:54 04/24/22 19:05 Diphenhydramine Hcl 50 Mg/Ml Vial IVPUSH 04/24/22 17:55 Not Given ONCE ONE Ketorolac Tromethamine 30 mg 04/24/22 17:54 04/24/22 18:53 Ketorolac Tromethamine 15 Mg/Ml Vial IVPUSH 04/24/22 17:55 30 mg ONCE ONE Administration Metoclopramide HCl 10 mg 04/24/22 17:54 04/24/22 18:53 Metoclopramide Hcl 10 Mg/2 Ml Vial IVPUSH 04/24/22 17:55 10 mg ONCE ONE Administration Ondansetron HCl 4 mg 04/24/22 16:22 04/24/22 18:17 Ondansetron Odt 4 Mg Tab.Rapdis TRANSLINGU 04/24/22 16:23 4 mg ONCE ONE Administration <Jessica Valencia CNP - Last Filed: 04/24/22 16:22> Medications Administered Discontinued Medications Generic Name Dose Route Start Last Admin Trade Name Kalpesh PRN Reason Stop Dose Admin Diphenhydramine HCl 25 mg 04/24/22 17:54 04/24/22 19:05 Diphenhydramine Hcl 50 Mg/Ml Vial IVPUSH 04/24/22 17:55 Not Given ONCE ONE Ketorolac Tromethamine 30 mg 04/24/22 17:54 04/24/22 18:53 Ketorolac Tromethamine 15 Mg/Ml Vial IVPUSH 04/24/22 17:55 30 mg ONCE ONE Administration Metoclopramide HCl 10 mg 04/24/22 17:54 04/24/22 18:53 Metoclopramide Hcl 10 Mg/2 Ml Vial IVPUSH 04/24/22 17:55 10 mg ONCE ONE Administration Ondansetron HCl 4 mg 04/24/22 16:22 04/24/22 18:17 Ondansetron Odt 4 Mg Tab.Sonal TRANSLINGU 04/24/22 16:23 4 mg ONCE ONE Administration <GLENDA Rebolledo - Last Filed: 04/24/22 22:05> Discharge Plan Discharge Clinical Impression: Migraine, Viral illness <Jessica Valencia CNP - Last Filed: 04/24/22 16:22> Patient Disposition: Home, Self-Care <Jessica Valencia CNP - Last Filed: 04/24/22 16:22> Instructions: Migraine Headache (ED), Viral Syndrome (ED) <Jessica Valencia CNP - Last Filed: 04/24/22 16:22> Additional Instructions: Take your medications as prescribed. If you were prescribed antibiotics today, it is important that you take your medication to their entirety, do not skip any doses, do not finish them early. Follow-up with your primary care provider this week. Return to the emergency department with new or worsening symptoms. Such as fevers, chills, chest pain, shortness of breath, nausea, vomiting, dizziness, headache, vision changes, lethargy In case of emergency call 911 Toradol has been sent to your pharmacy, you tolerated this well in the department. Please take this as prescribed do not take this with ibuprofen, or other NSAIDs, do not mix this with alcohol. Side effects of this medication including increased risk for bleeding and possible kidney injury. Martha has been sent to her pharmacy for nausea, vomiting, take this as prescribed do not take more than the prescribed dose as this can cause cardiac dysrhythmias. CT/CT abdomen pelvis wo IV con IMPRESSION: No acute intra-abdominal process identified. ? ?CT/CT head/brain wo IV con IMPRESSION: 1.? No evidence of acute intracranial hemorrhage or edematous territorial infarction. 2.? Mild underlying microangiopathy. <Jessica Valencia, COUNTRY DIRECTOR - Last Filed: 04/24/22 16:22> Prescriptions: New ketorolac 10 mg tablet 10 mg PO TID PRN (Reason: pain) 5 Days Qty: 15 0RF Rx Instructions: Tolerated IM in the department ondansetron 4 mg tablet,disintegrating 4 mg PO Q6H PRN (Reason: nausea and vomiting) Qty: 14 0RF No Action epinephrine [EpiPen 2-Jeremi] 0.3 mg/0.3 mL auto-injector 0.3 ml IM DIRECTED 30 Days Qty: 2 6RF Trulance 3 mg tablet 3 mg PO DAILY 30 Days Qty: 30 3RF loperamide [Imodium A-D] 2 mg capsule 2 mg PO Q6H PRN (Reason: loose stool) 10 Days Qty: 30 0RF levalbuterol HCl [Xopenex] 1.25 mg/3 mL solution for nebulization 1.25 mg inhalation Q6H PRN (Reason: shortness of breath or wheezing) 30 Days Qty: 360 11RF budesonide 0.5 mg/2 mL suspension for nebulization 0.5 mg inhalation DAILY Qty: 180 3RF montelukast 10 mg tablet 10 mg PO DAILY Qty: 90 3RF Tezspire 210 mg/1.91 mL (110 mg/mL) syringe 210 mg subcut Q4W 360 Days Qty: 24.83 0RF sucralfate 100 mg/mL suspension 10 ml PO BID Qty: 1000 0RF dicyclomine 10 mg capsule 10 mg PO BID Qty: 180 0RF azithromycin 500 mg tablet 500 mg PO DAILY 3 Days Qty: 3 0RF prednisone 10 mg tablet See Rx Instructions PO DAILY 18 Days Qty: 63 0RF Rx Instructions: PO daily; Take 6 tabs daily x 3 days, then 5 tabs x 3 days, then 4 tabs x 3 days, then 3 tabs x 3 days, then 2 tabs daily x 3 days, then 1 tab x 3 days to complete. ketotifen fumarate 0.025 % (0.035 %) drops 1 drp ophthalmic (eye) BID PRN (Reason: Allergy Symptoms) hydrochlorothiazide 12.5 mg capsule 1 cap PO DAILY lorazepam 1 mg tablet 1 tab PO BID levalbuterol tartrate 45 mcg/actuation HFA aerosol inhaler 2 puff inhalation Q4H PRN (Reason: Wheezing) cholecalciferol (vitamin D3) 50 mcg (2,000 unit) tablet 1 tab PO DAILY Dulera 200-5 mcg/actuation HFA aerosol inhaler 2 puff inhalation BID sumatriptan succinate [Imitrex] 50 mg Tablet 50 mg PO Q2-4H PRN (Reason: Migraine Headache) cyclobenzaprine 5 mg tablet 5 mg PO BEDTIME PRN (Reason: muscle spasm) Qty: 10 0RF valsartan 80 mg tablet 80 mg PO DAILY amitriptyline 50 mg tablet 50 mg PO BEDTIME fluoxetine 20 mg capsule 20 mg PO DAILY fexofenadine 180 mg tablet 180 mg PO DAILY fluticasone propionate 50 mcg/actuation spray,suspension 2 spray intranasal DAILY (DME) blood pressure test kit-large Kit See Rx Instructions .ROUTE BID Qty: 1 Rx Instructions: As directed Spiriva Respimat 1.25 mcg/actuation mist 2 puff inhalation DAILY prednisone 10 mg tablet 10 mg PO DAILY Qty: 30 1RF doxycycline monohydrate 100 mg tablet 100 mg PO BID 14 Days Qty: 28 0RF azelastine 137 mcg (0.1 %) aerosol,spray 2 spray intranasal BID lansoprazole 30 mg capsule,delayed release(DR/EC) 30 mg PO DAILY Qty: 90 1RF gabapentin 100 mg capsule 100 mg PO BEDTIME Qty: 30 2RF (DME) Aerochamber MV Spacer See Rx Instructions .ROUTE .MEDSUPPLY Qty: 1 0RF Rx Instructions: As directed albuterol sulfate 90 mcg/actuation HFA aerosol inhaler 2 puff PO Q4H PRN (Reason: Wheezing) Qty: 8.5 11RF <Jessica Valencia CNP - Last Filed: 04/24/22 16:22> Referrals: Physician,Unknown J [Primary Care Provider] - 2 days <Jessica Valencia CNP - Last Filed: 04/24/22 16:22> Stand Alone Forms: Work/School Release <Jessica Valencia CNP - Last Filed: 04/24/22 16:22>
--- NOTE | 2022-04-24 16:22 | ECG_ITS ---
Test Reason : ABDOMINAL PAIN Blood Pressure : / mmHG Vent. Rate : 071 BPM Atrial Rate : 071 BPM P-R Int : 170 ms QRS Dur : 096 ms QT Int : 412 ms P-R-T Axes : 070 040 051 degrees QTc Int : 447 ms Normal sinus rhythm ST & T wave abnormality, consider anterolateral ischemia Abnormal ECG When compared with ECG of 07-JAN-2021 22:00, No significant change was found Referred By: Jessica Valencia Electronically Signed By:BRADLY RICO
[2022-04-24 17:08] LABS: MANUAL DIFF FLAG NO
[2022-04-24 17:13] LABS: Basophils Absolute Auto 0.1 X10*3/uL (0.0-0.2); Basophils Percent Auto 0.6 % (0-2); Hematocrit 40.3 % (37.0-47.0); Hemoglobin 13.2 g/dl (12.0-16.0); Imm Gran Abs Auto 0.03 X10*3/uL (0.00-0.03); Imm Gran Pct Auto 0.4 % (0.0-0.4); Lymphocytes Percent Auto 13.2 % (20-40); Mean Corpuscular HGB Conc 32.8 g/dl (31.0-35.0); Mean Corpuscular Hemoglobin 25.4 pg (27.0-33.0); Mean Corpuscular Volume 77.5 fL (80.0-98.0); Mean Platelet Volume 9.6 fL (9.4-12.3); Monocytes Absolute Auto 0.2 X10*3/uL (0.1-1.2); Monocytes Percent Auto 2.2 % (2-11); Neutrophils Absolute Auto 6.6 x10*3/uL (2.0-8.3); Neutrophils Percent Auto 83.6 % (45-73); Platelet Count 244 X10*3/uL (160-400); Red Cell Distribution Width 13.7 % (11.0-16.0); White Blood Count 7.9 X10*3/uL (4.8-10.8)
[2022-04-24 17:27] LABS: COVID-19 Test Negative (Negative); IDNOW Serial# 16C4AD1C; IDNOW Serial# 9DB6401D; Influenza A Negative (Negative); Influenza B2 Negative (Negative)
[2022-04-24 17:29] LABS: Alanine Aminotransferase 13 U/L (0-31); Albumin Level 4.2 g/dL (3.5-5.0); Alkaline Phosphatase 89 U/L (39-117); Anion Gap 12 (12-20); Aspartate Amino Transferase 16 U/L (5-31); Bilirubin Total 0.5 mg/dL (0.0-1.0); Blood Urea Nitrogen 12 mg/dL (9-16); Calcium 9.2 mg/dL (8.4-10.2); Carbon Dioxide 27 mmol/L (22-29); Chloride 106 mmol/L (96-108); Creatinine Clr Calc Pharmacy 76.5; Estimated Glomerular Filt Rate > 60; Glucose Random 130 mg/dL (60-115); Lipase 13 U/L (8-78); Potassium 3.5 mmol/L (3.3-5.1); Sodium 141 mmol/L (135-145)
[2022-04-24] MEDS: Ondansetron ODT 4 MG TAB.RAPDIS TRANSLINGU (18:17)
[2022-04-24 18:50] VITALS: BP 166/83; PULSE 77; RESP 16; O2SAT 97
[2022-04-24] MEDS: Ketorolac Tromethamine 15 MG/ML VIAL 30 MG IVPUSH (18:53)
[2022-04-24] MEDS: Metoclopramide HCl 10 MG/2 ML VIAL IVPUSH (18:53)
[2022-04-24 21:02] LABS: Appearance Urine Clear; Color Urine Yellow; Glucose Urine UA Negative (Negative); Leukocyte Esterase Urine Negative (Negative); Nitrite Urine Negative (Negative); PH 6.5 (5.0-9.0); Specific Gravity - Urine 1.015 (1.005-1.025); UMIC TRIGGER UACC YES; Urine Blood Trace (Negative); Urine Ketones Negative (Negative); Urine Protein Negative (Neg-Trace)
[2022-04-24 21:29] LABS: Bacteria Urine None Seen (None Seen); Hyaline Casts Urine 0-2 /LPF (0-2); RBC Urine 0-2 /HPF (0-2); Squamous Epithelial Cell Urine 0-2 /HPF (0-2); WBC Urine 0-5 /HPF (0-5)
[2022-04-24 21:40] VITALS: BP 159/86; PULSE 96; RESP 16; TEMP 36.7; O2SAT 97
== END 2022-04-24 22:54 | disposition home or self-care (01) ==
PROVIDERS: Nurse Practitioner Family; Emergency Provider Internal Medicine
DX: G43.909 Migraine, unspecified, not intractable, without status migrainosus (principal); B34.9 Viral infection, unspecified; Z20.822 Contact with and (suspected) exposure to COVID-19; I10 Essential (primary) hypertension; Z79.899 Other long term (current) drug therapy
CPT/HCPCS: 70450; 74176; 80053; 81001; 81003; 83690; 85025; 87502; 87635; 93005; 96374; 96375; 99284; 99285; J1200; J1885; J2765

== ENCOUNTER 2022-04-28 10:38 | Outpatient (REF) | payer OTHER, SELFPAY ==
[2022-04-28 11:02] LABS: MANUAL DIFF FLAG NO
[2022-04-28 12:08] LABS: Basophils Absolute Auto 0.1 X10*3/uL (0.0-0.2); Eosinophils Absolute Auto 0.1 X10*3/uL (0.0-0.4); Eosinophils Percent Auto 2.1 % (0-4); Hematocrit 39.9 % (37.0-47.0); Hemoglobin 12.8 g/dl (12.0-16.0); Imm Gran Abs Auto 0.01 X10*3/uL (0.00-0.03); Imm Gran Pct Auto 0.2 % (0.0-0.4); Lymphocytes Absolute Auto 2.3 X10*3/uL (1.2-4.9); Lymphocytes Percent Auto 37.4 % (20-40); Mean Corpuscular HGB Conc 32.1 g/dl (31.0-35.0); Mean Corpuscular Hemoglobin 25.2 pg (27.0-33.0); Mean Corpuscular Volume 78.5 fL (80.0-98.0); Mean Platelet Volume 9.8 fL (9.4-12.3); Monocytes Absolute Auto 0.4 X10*3/uL (0.1-1.2); Monocytes Percent Auto 6.6 % (2-11); Neutrophils Absolute Auto 3.2 x10*3/uL (2.0-8.3); Neutrophils Percent Auto 52.7 % (45-73); Platelet Count 245 X10*3/uL (160-400); Red Blood Count 5.08 X10*6/uL (4.20-5.50); Red Cell Distribution Width 13.9 % (11.0-16.0); White Blood Count 6.1 X10*3/uL (4.8-10.8)
[2022-04-28 12:50] LABS: Alanine Aminotransferase 11 U/L (0-31); Alkaline Phosphatase 78 U/L (39-117); Anion Gap 9 (12-20); Aspartate Amino Transferase 15 U/L (5-31); Bilirubin Total 0.7 mg/dL (0.0-1.0); Blood Urea Nitrogen 17 mg/dL (9-16); Calcium 8.9 mg/dL (8.4-10.2); Carbon Dioxide 27 mmol/L (22-29); Chloride 111 mmol/L (96-108); Cholesterol 259 mg/dL; Estimated Glomerular Filt Rate > 60; Glucose Random 87 mg/dL (60-115); HDL Cholesterol 35 mg/dL; LDL Cholesterol Calculated 190 mg/dl; Potassium 3.7 mmol/L (3.3-5.1); Sodium 143 mmol/L (135-145); Total Protein 6.5 g/dL (6.5-8.0); Triglycerides 171 mg/dL
== END 2022-04-28 10:39 | disposition home or self-care (01) ==
LOC: HO.LAB 10:38
PROVIDERS: PCP Internal Medicine Geriatric Medicine; Visit Provider Internal Medicine Geriatric Medicine
DX: I10 Essential (primary) hypertension (principal); Z13.220 Encounter for screening for lipoid disorders
CPT/HCPCS: 36415; 80053; 80061; 85025

== ENCOUNTER → 2022-05-19 08:45 | Outpatient (BNVA) | payer OTHER, SELFPAY | PROVIDERS: PCP Internal Medicine Geriatric Medicine; Visit Provider Nurse Practitioner Family | DX: M47.812 Spondylosis without myelopathy or radiculopathy, cervical region (principal); M54.12 Radiculopathy, cervical region; M79.7 Fibromyalgia; M25.511 Pain in right shoulder; M25.512 Pain in left shoulder; M62.838 Other muscle spasm; G89.4 Chronic pain syndrome | CPT/HCPCS: 99202 ==

== ENCOUNTER → 2022-06-13 10:12 | Outpatient (BNVA) | payer OTHER, SELFPAY | PROVIDERS: PCP Internal Medicine Geriatric Medicine; Visit Provider Hospitalist | DX: J44.9 Chronic obstructive pulmonary disease, unspecified (principal); J45.50 Severe persistent asthma, uncomplicated; J01.01 Acute recurrent maxillary sinusitis; K21.00 Gastro-esophageal reflux disease with esophagitis, without bleeding; L30.9 Dermatitis, unspecified; Z79.899 Other long term (current) drug therapy | CPT/HCPCS: 99212 ==

== ENCOUNTER → 2022-06-27 11:04 | Outpatient (BNVA) | payer OTHER, SELFPAY | PROVIDERS: PCP Internal Medicine Geriatric Medicine; Visit Provider Surgery Vascular Surgery | DX: I83.12 Varicose veins of left lower extremity with inflammation (principal) | CPT/HCPCS: 37765 ==

== ENCOUNTER 2022-07-03 12:00 | Outpatient (RCR) | payer OTHER, SELFPAY ==
--- NOTE | 2022-06-18 14:01 | MHC.PT.EP ---
[facility] [place] Office [place] Office [place] Office [address] [phone] F: [phone] F: [phone] F: [phone] F: [phone] Physical Therapy Plan of Care Date of Evaluation: Date of Surgery: N/A Diagnosis: Spondylosis without myelopathy or radiculopathy, cervical region Chronic pain syndrome Pain in right shoulder Pain in left shoulder Radiculopathy, cervical region Fibromyalgia Assessment: Pt is a pleasant 67yo F who presents to PT with neck pain. She presents to PT with current impairments in pain, decreased cervical ROM, soft tissue restrictions, and impaired posture. She is TTP throughout B UT, levator, and occipitals. She is limited functionally by sleeping, turning head, looking up, and looking down. She is a good candidate for skilled PT in order to address current impairments to facilitate return to PLOF. She is recommended to be seen 2x/week for 4 weeks and will be reassessed at that time. Frequency and Duration: The patient will be seen 2x/week for 4 weeks Short Term Goals: Pt will be I with HEP to promote self management of symptoms Pt will improve B cervical rotation by at least 10 degrees Retail Custodial Associate Goals: Pt will demonstrate ROM WFL all planes of cervical spine to assist with looking up/down and rotation Pt will demonstrate improvements in function as evidenced by statistically significant improvement in Neck Pain and Disability Index Questionnaire Treatment Plan: Modalities to reduce pain, spasms and effusion. Manual therapy to restore motion and function. Therapeutic exercise to improve strength and flexibility. Neuromuscular re-education for posture and balance. Therapeutic activities to return to functional activities of daily living. Electronically signed by: Aisha Zhu, PT, DPT Please sign and return to therapist. Thank you for your referral.
--- NOTE | 2022-08-06 11:44 | MHC.PT.DC ---
[facility] [place] Office [place] Office [place] Office [address] [facility] [phone] F: [phone] F: [phone] F: [phone] F: [phone] Physical Therapy Discharge Report Diagnosis: Spondylosis without myelopathy or radiculopathy, cervical region Chronic pain syndrome Pain in right shoulder Pain in left shoulder Radiculopathy, cervical region Fibromyalgia Date of Surgery: N/A Date of Evaluation: 06/18/22 Date of Discharge: 08/06/22 Treatments to Date: 3 Cancellations to Date: 4 No Shows to Date: 2 Discharge Status: Visit Non-compliance Discharge Summary: Pt was seen for PT from 06/18/22-07/03/22. Her last attended appointment was 07/03/22. Pt has had 2 no shows since SOC. Pt is being D/C from skilled PT per [facility] attendance policy and visit non compliance. Pt current level of function unknown at this time. Electronically signed by: Aisha Zhu, PT, DPT Please sign and return to therapist. Thank you for your referral.
== END 2022-08-06 11:43 | disposition home or self-care (01) ==
LOC: HO.PT 12:00
PROVIDERS: PCP Internal Medicine Geriatric Medicine; Visit Provider Nurse Practitioner Family
DX: M47.812 Spondylosis without myelopathy or radiculopathy, cervical region (principal); M25.511 Pain in right shoulder; M25.512 Pain in left shoulder; M54.12 Radiculopathy, cervical region; M79.7 Fibromyalgia
CPT/HCPCS: 97110; 97140; 97162

== ENCOUNTER → 2022-07-08 10:50 | Outpatient (BNVA) | payer OTHER, SELFPAY | PROVIDERS: PCP Internal Medicine Geriatric Medicine; Visit Provider Surgery Vascular Surgery | DX: I83.12 Varicose veins of left lower extremity with inflammation (principal); M17.12 Unilateral primary osteoarthritis, left knee | CPT/HCPCS: 99212 ==

== ENCOUNTER 2022-10-20 15:03 | Outpatient (AMB) | payer OTHER, SELFPAY ==
--- NOTE | 2022-10-20 15:33 | A.OFFVIS_ITS ---
Intake Vital Signs 10/20/22 15:35 Height 5 ft 3 in Weight 134 lb 7.712 oz BMI 23.8 BP 127/76 Blood Pressure Location Lt brachial Position Sitting Pulse 86 Intake Visit Reasons: 6 Month Follow Up Intake Note: Kaitlin presents in the office as a 6 month follow up. CC: She state she will have issues with constipation and has issues having a bowel movement. When she eats she will have contractions in her abdomen. Mental Health Director Required: Yes Mental Health Director Name: Jessica [id number] Allergies ciprofloxacin [From Cipro] Allergy (Intermediate, Verified 10/20/22 15:34) HIVES/ITCHING oxycodone [Percocet] Allergy (Intermediate, Verified 10/20/22 15:34) Hives Penicillins Allergy (Intermediate, Verified 10/20/22 15:34) HIVES/ITCHING simvastatin [Simvastatin] Allergy (Intermediate, Verified 10/20/22 15:34) HIVES/ITCHINIG vancomycin [Vancomycin] Allergy (Intermediate, Verified 10/20/22 15:34) HIVES/ITCHING latex Allergy (Mild, Verified 10/20/22 15:34) Rash milnacipran [From Savella] Allergy (Mild, Verified 10/20/22 15:34) Hives Sulfa (Sulfonamide Antibiotics) Allergy (Mild, Verified 10/20/22 15:34) Shortness of Breath dupilumab [From Dupixent Pen] Adverse Reaction (Intermediate, Verified 10/20/22 15:34) neuropathy HPI 6 Month Follow Up HPI Details 67 yr old f w hx of cholecystectomy, here for f/u RECAP__initially saw [facility]--08/2019 ? She says she has a bacteria in her stomach ? h pylori. Significant bloating she could not eat. ? She had taken clarithromycin and Flagyl for 3- 4 days and began with nausea and vomiting. She finally had gone to the ED, Antibiotoic therapy discontinued ? despite GB taken out 1 yr ago she has simialr sx ? Her appetite is not great however she is not had any further vomiting, however continues with intermittent nausea, bloating and reflux though she discontinued omeprazole as well. ? She has very unstable BP- always in the ED. ? She is allergic to every antibiotic as well as anesthesia. Her daughter says that she needs to have monitoring whenever she is given any of the above. Her daughter was extremely concerned taking medications ? She did have a an abdominal ultrasound 08/08/19--fatty liver, otherwise ok ? LABS 08/2019--nml BMP, LFT< CBC, microcytosis ?? ? EGD/colonoscopy--01/2020---patchy erythema, nml colon, bx with h pylori she was given quadruple therapy for h pylori subsequent H pylori breath test 04/2020---Negative, repeat H pylori 10/2021-- negATIVE GES--normal I also gave her linaclotide for constipation thought to be due to her medications she had BENITES and manometry at [facility] 04/2021--pos Demeeester, normal manometry IMAGING: CT 12/2019--- mild constipation, no acute findings ? ?US 2021- normal apart from mild aortic atherosclerosis ?INTERIM: she has post prandial diarrhea and discomfort she has sx within 20 mins no blood in stools pain is more in the lower abdomen, crampoy in nature no nausea or vomiting she has not needed linaclotide she takes PPI and it still helps her she has to be careful with her diet EXAM: GENERAL: The patient is well developed and nontoxic. VITAL SIGNS:see workflow HEENT: Nonicteric sclerae, PERRLA, EOMI. Oropharynx clear. Moist mucous membranes. Conjunctivae appear well perfused. No thyroid mass. CHEST: Chest wall is nontender. HEART: Regular rate and rhythm without murmurs. LUNGS: Clear to auscultation bilaterally. ABDOMEN: Soft, positive bowel sounds, tender suprapubic area, no organomegaly. SKIN: No rash, no excessive bruising, petechiae, or purpura. NEUROLOGIC: Cranial nerves II-XII intact without motor/sensory deficit. psych--nml Assessment & Plan 1/? pos Demeester and GERD--seems to be doing better with PPI 2/ Suprapubic tenderness and cramps ?IBS, etiology PLAN: 1/ UA and stool testing 2/ US Abdo 3/ if above neg then maybe Doppler to r/o mesenteric ischemia [facility] History Allergic rhinitis VERA positive Anxiety Asthma Cervicalgia Chronic pain of left knee Depression DVT (deep venous thrombosis) Dyspnea Eczema Fibromyalgia GERD (gastroesophageal reflux disease) History of anesthesia problem History of vertigo Migraine Osteoarthritis Rash Sinusitis Tachycardia URI (upper respiratory infection) Varicose vein of leg Surgical History H/O varicose vein ligation and stripping History of esophagogastroduodenoscopy (EGD) History of repair of right rotator cuff Hx laparoscopic cholecystectomy Hx of appendectomy Hx of bilateral breast reduction surgery Hx of colonoscopy Hx of hemorrhoidectomy Hx of hysterectomy Status post right rotator cuff repair Family History Father No problems noted. Mother Family history of high blood pressure Dementia Social History Household Members: None Alcohol intake: never Patient Tobacco Use Status: Never used Tobacco Advance Directives Date on File: 04/03/18 Current occupational status: unemployed Current occupation: Left Handed Physical Exam Vital Signs: Last Vital Signs Pulse 86 10/20/22 15:35 BP 127/76 10/20/22 15:35 BMI result Body Mass Index 23.8 Assessment & Plan Assessment & Plan (1) Suprapubic pain: Code(s): R10.2 - Pelvic and perineal pain (2) Abnormal bowel habits: Code(s): R19.8 - Other specified symptoms and signs involving the digestive system and abdomen (3) Hemorrhoid: Code(s): K64.9 - Unspecified hemorrhoids Orders: Orders UA CC w/rflx Micro + Cult Today R30.0 - Dysuria US abdomen complete Today R10.2 - Pelvic and perineal pain, R19.8 - Other specified symptoms and signs involving the digestive system and abdomen Fecal Fat Qualitative Today R14.0 - Abdominal distension (gaseous) Pancreatic Elastase-1 Today R14.0 - Abdominal distension (gaseous) CDiff Gene PCR Today R14.0 - Abdominal distension (gaseous) GI Panel Today R14.0 - Abdominal distension (gaseous), R19.7 - Diarrhea, unspecified Giardia Ag Stool EIA Today R14.0 - Abdominal distension (gaseous) Referrals Colon & Rectal Referral K64.9 - Unspecified hemorrhoids Medications: Changed From dicyclomine 10 mg PO BID 180 caps 0RF To dicyclomine 10 mg PO TID 180 caps 0RF Coding Level of Care Code Est Pt Level 4 (07959) Diagnoses Suprapubic pain R10.2 Abnormal bowel habits R19.8 Hemorrhoid K64.9
[2022-10-20 15:35] VITALS: BP 127/76; PULSE 86; BMI 23.8
== END 2022-10-20 15:49 | disposition home or self-care (01) ==
PROVIDERS: Visit Provider Internal Medicine Gastroenterology
DX: R10.2 Pelvic and perineal pain (principal); R19.8 Other specified symptoms and signs involving the digestive system and abdomen; K64.9 Unspecified hemorrhoids
CPT/HCPCS: 99214

== ENCOUNTER → 2022-10-20 15:03 | Outpatient (BNVA) | payer OTHER, SELFPAY | PROVIDERS: Visit Provider Internal Medicine Gastroenterology | DX: R19.8 Other specified symptoms and signs involving the digestive system and abdomen (principal); R10.2 Pelvic and perineal pain; K64.9 Unspecified hemorrhoids; Z90.49 Acquired absence of other specified parts of digestive tract | CPT/HCPCS: 99212 ==

== ENCOUNTER 2022-10-22 15:02 | Outpatient (REF) | payer OTHER, SELFPAY ==
[2022-10-22 16:38] LABS: CDiff Gene PCR NEGATIVE (Negative)
[2022-10-22 17:32] LABS: Appearance Urine Clear; Color Urine Yellow; Glucose Urine UA Negative (Negative); Leukocyte Esterase Urine Negative (Negative); Nitrite Urine Negative (Negative); PH 5.5 (5.0-9.0); Specific Gravity - Urine <= 1.005 (1.005-1.025); Urine Blood Negative (Negative); Urine Ketones Negative (Negative); Urine Protein Negative (Neg-Trace)
[2022-10-23 15:44] LABS: Norovirus GI/GII Detected (Not Detect.)
[2022-10-23 15:45] LABS: Adenovirus F 40/41 Not Detected (Not Detect.); Astrovirus Not Detected (Not Detect.); Campylobacter Not Detected (Not Detect.); Cryptosporidium Not Detected (Not Detect.); Cyclospora cayetanensis Not Detected (Not Detect.); E. coli EAEC Not Detected (Not Detect.); E. coli EPEC Not Detected (Not Detect.); E. coli ETEC Not Detected (Not Detect.); E. coli STEC Not Detected (Not Detect.); Entamoeba histolytica Not Detected (Not Detect.); Giardia lamblia Not Detected (Not Detect.); Plesiomonas shigelloides Not Detected (Not Detect.); Rotavirus A Not Detected (Not Detect.); Salmonella Not Detected (Not Detect.); Sapovirus Not Detected (Not Detect.); Shigella sp./EIEC Not Detected (Not Detect.); Vibrio Not Detected (Not Detect.); Vibrio Cholerae Not Detected (Not Detect.); Yersinia enterocolitica Not Detected (Not Detect.)
[2022-10-26 17:28] LABS: Fecal Fat Qualitative Abnormal (Normal)
[2022-10-30 15:18] LABS: Pancreatic Elastase-1 >500 mcg/g
== END 2022-10-22 15:03 | disposition home or self-care (01) ==
LOC: HO.LNP 15:02
PROVIDERS: Visit Provider Internal Medicine Gastroenterology
DX: R14.0 Abdominal distension (gaseous) (principal); R19.7 Diarrhea, unspecified; R30.0 Dysuria
CPT/HCPCS: 81003; 82656; 82705; 87329; 87493; 87507

== ENCOUNTER 2022-11-10 14:24 | Outpatient (AMB) | payer OTHER, SELFPAY ==
--- NOTE | 2022-11-10 14:26 | MHC.OFFVIS ---
Intake Vital Signs 11/10/22 14:33 Height 5 ft 3 in Weight 130 lb BMI 23.0 BP 134/80 Blood Pressure Location Rt brachial Position Sitting Pulse 99 Intake Visit Reasons: hemorrhoids Intake Note: This patient presents for an assessment for hemorrhoids. Patient c/o; reports occasional rectal bleeding with bowel movements, denies constipation. Director Of Payroll Required: Yes Director Of Payroll Language: Regulatory Affairs Intern Name: Christopher Information Interpreted: non-clinical & clinical Accompanied by: Self / Same As Patient Allergies ciprofloxacin [From Cipro] Allergy (Intermediate, Verified 11/10/22 14:34) HIVES/ITCHING oxycodone [Percocet] Allergy (Intermediate, Verified 11/10/22 14:34) Hives Penicillins Allergy (Intermediate, Verified 11/10/22 14:34) HIVES/ITCHING simvastatin [Simvastatin] Allergy (Intermediate, Verified 11/10/22 14:34) HIVES/ITCHINIG vancomycin [Vancomycin] Allergy (Intermediate, Verified 11/10/22 14:34) HIVES/ITCHING latex Allergy (Mild, Verified 11/10/22 14:34) Rash milnacipran [From Savella] Allergy (Mild, Verified 11/10/22 14:34) Hives Sulfa (Sulfonamide Antibiotics) Allergy (Mild, Verified 11/10/22 14:34) Shortness of Breath dupilumab [From Dupixent Pen] Adverse Reaction (Intermediate, Verified 11/10/22 14:34) neuropathy Medication List - Last Reconciled 11/10/22 by Jonny Croft MD albuterol sulfate 90 mcg/actuation 2 puffs PO Q4H PRN albuterol sulfate 2.5 mg (3 mL) inhalation Q6H PRN 30 days amitriptyline 50 mg PO BEDTIME azelastine 2 sprays intranasal BID blood pressure test kit-large As directed budesonide 0.5 mg (2 mL) inhalation DAILY cholecalciferol (vitamin D3) 1 tab PO DAILY cyclobenzaprine 5 mg PO BEDTIME PRN diclofenac potassium 50 mg PO BID PRN dicyclomine 10 mg PO TID doxycycline monohydrate 100 mg PO BID 14 days epinephrine (EpiPen 2-Jeremi) 0.3 mL IM DIRECTED 30 days ezetimibe 10 mg PO DAILY fexofenadine 180 mg PO DAILY fluoxetine 20 mg PO DAILY fluticasone propionate 50 mcg/actuation 2 sprays intranasal DAILY gabapentin 100 mg PO BEDTIME hydrochlorothiazide 1 cap PO DAILY inhalational spacing device (Aerochamber MV spacer) As directed ketotifen fumarate 0.025%(0.035%) 1 drp ophthalmic (eye) BID PRN lansoprazole 30 mg PO DAILY levalbuterol HCl (Xopenex) 1.25 mg (3 mL) inhalation Q6H PRN 30 days levalbuterol tartrate 45 mcg/actuation 2 puffs inhalation Q4H PRN loperamide (Imodium A-D) 2 mg PO Q6H PRN 10 days lorazepam 1 tab PO BID mometasone-formoterol 200-5 mcg/actuation (Dulera) 2 puffs inhalation BID 30 days montelukast 10 mg PO DAILY omeprazole mg PO QAM ondansetron 4 mg PO Q6H PRN plecanatide (Trulance) 3 mg PO DAILY 30 days prednisone 10 mg PO DAILY sucralfate 10 mL PO BID sumatriptan succinate (Imitrex) 50 mg PO Q2-4H PRN tezepelumab-ekko (Tezspire) 210 mg (1.91 mL) subcut Q4W 12 months tiotropium bromide 1.25 mcg/actuation (Spiriva Respimat) 2 puffs inhalation DAILY 30 days topiramate 25 mg PO DAILY triamcinolone acetonide 0.1% 1 appl topical BID 30 days valsartan 80 mg PO DAILY HPI hemorrhoids HPI Details [age] year old female referred for hemorrhoids. She says that she had hemorrhoid surgery about 30 years ago. She says she really did not have any problems since then. However for the past year she has notice small amounts of blood on wiping. Furthermore, she says she has some occasional burning pain side her anus and inside. She says that she notices a small lump outside as well once in a while She denies being constipated. [facility] Medical History (Updated 11/10/22 @ 14:51 by Jonny Croft MD) Bleeding hemorrhoids Eczema VERA positive DVT (deep venous thrombosis) Tachycardia Dyspnea Sinusitis Rash URI (upper respiratory infection) History of anesthesia problem Osteoarthritis Fibromyalgia GERD (gastroesophageal reflux disease) Cervicalgia Depression History of vertigo Varicose vein of leg Chronic pain of left knee Allergic rhinitis Anxiety Asthma Migraine Surgical History History of esophagogastroduodenoscopy (EGD) History of repair of right rotator cuff Hx of bilateral breast reduction surgery Hx of hemorrhoidectomy H/O varicose vein ligation and stripping Hx of colonoscopy Hx of hysterectomy Hx of appendectomy Hx laparoscopic cholecystectomy Status post right rotator cuff repair Family History Father No problems noted. Mother Family history of high blood pressure Dementia Social History Household Members: None Alcohol intake: never Patient Tobacco Use Status: Never used Tobacco Advance Directives Date on File: 04/03/18 Current occupational status: unemployed Current occupation: Left Handed Review of Systems Const Denies chills and Denies fever(s) Card Denies chest pain, Denies dyspnea and Denies dyspnea on exertion Resp Denies cough, Denies dyspnea and Denies dyspnea on exertion GI Denies hematochezia and Denies change in bowel habits Denies hematuria Musc Denies back pain and Denies limited range of motion Neuro Denies focal weakness and Denies convulsions Psych Denies depression and Denies mood swings Physical Exam Const General: comfortable and no acute distress Orientation/consciousness: patient oriented x3 Neck Neck: Yes no lymphadenopathy Resp Auscultation: clear to auscultation bilaterally Cardio Rhythm: regular rhythm GI Other: Small external hemorrhoids on rectal exam, no lesions, anoscopy as described Palpation (GI): Soft to palpation, nontender and no guarding Neuro General: patient oriented x3 Office Procedures Anoscopy She was in ricky-knife position. The anoscope was gently inserted. A full examination of the entire anal canal was done. She has small internal hemorrhoids as well without any other lesions. There was no fissure no induration or any bleeding. She has no significant tenderness at this time. There was note of some redness in the anal canal. [id number] Assessment & Plan Assessment & Plan (1) Bleeding hemorrhoids: Code(s): K64.9 - Unspecified hemorrhoids Plan: She has internal and external hemorrhoids. She does have minimal symptoms at this time even with the bleeding seen on wiping I told her that I would not recommend proceeding with hemorrhoidectomy for now. I am going to prescribe her steroid suppository as well as Calmoseptine I explained to her that she is to avoid straining and constipation. I told her to come back to the office if she does not notice significant improvement or if she says she says she feels worse. She understands the option of hemorrhoidectomy. Coding Level of Care Code New Pt Level 3 (94181) Diagnoses Bleeding hemorrhoids K64.9 CPT Codes Details - CPT: 05380-Xihhtsrs ([id number])
[2022-11-10 14:33] VITALS: BP 134/80; PULSE 99; BMI 23.0
== END 2022-11-10 14:48 | disposition home or self-care (01) ==
PROVIDERS: PCP Internal Medicine Geriatric Medicine; Visit Provider Surgery
DX: K64.8 Other hemorrhoids (principal)
CPT/HCPCS: 46600; 99203

== ENCOUNTER → 2022-11-10 14:24 | Outpatient (BNVA) | payer OTHER, SELFPAY | PROVIDERS: PCP Internal Medicine Geriatric Medicine; Visit Provider Surgery | DX: K64.4 Residual hemorrhoidal skin tags (principal); K64.8 Other hemorrhoids | CPT/HCPCS: 46600; 99202 ==

== ENCOUNTER 2022-11-17 09:55 | Outpatient (REF) | payer OTHER, SELFPAY ==
--- NOTE | ~2022-11-17 | US_ITS ---
EXAMINATION: US ABDOMEN COMPLETE CLINICAL INFORMATION: Pelvic and perineal pain. Suprapubic pain and discomfort, bloating, rule out abdominal lesion. COMPARISON: CT abdomen and pelvis without contrast 04/24/2022. Ultrasound abdomen complete 12/05/2021 and 08/08/2019. TECHNIQUE: Real-time imaging of the abdominal viscera. FINDINGS: PANCREAS: Normal head and body, the tail is obscured by bowel gas. ABDOMINAL AORTA: The proximal, mid, and distal segments are normal in caliber. Atherosclerotic plaque is seen within the abdominal aorta. INFERIOR VENA CAVA: Visualized portions are normal. LIVER: The liver is normal in size. The liver contour is normal. There is diffuse increased liver parenchymal echogenicity, consistent with hepatic steatosis. No focal hepatic lesion. There is no intrahepatic biliary duct dilatation seen. Punctate calcification is seen in the right lobe, of doubtful clinical significance, could represent a calcified granuloma. GALLBLADDER: Surgically absent. COMMON BILE DUCT: Normal in caliber measuring 0.4 cm in diameter. RIGHT KIDNEY: Normal. No hydronephrosis. No renal calculi or focal parenchymal lesions. The kidney measures 10.5 cm in maximum dimension. LEFT KIDNEY: Normal. No hydronephrosis. No renal calculi or focal parenchymal lesions. The kidney measures 10.6 cm in maximum dimension. SPLEEN: Normal. The spleen measures 9.5 cm in maximum dimension. FREE FLUID: None. US/US abdomen complete IMPRESSION: 1. Hepatic steatosis. 2. Prior cholecystectomy. 3. Atherosclerosis.
== END 2022-11-17 09:56 | disposition home or self-care (01) ==
LOC: HO.US 09:55
PROVIDERS: PCP Internal Medicine Geriatric Medicine; Visit Provider Internal Medicine Gastroenterology
DX: R10.2 Pelvic and perineal pain (principal); R19.8 Other specified symptoms and signs involving the digestive system and abdomen; R14.0 Abdominal distension (gaseous)
CPT/HCPCS: 76700

== ENCOUNTER 2022-12-15 09:50 | Outpatient (REF) | payer OTHER, SELFPAY ==
[2022-12-15 11:40] LABS: MANUAL DIFF FLAG NO
[2022-12-15 12:09] LABS: Basophils Absolute Auto 0.1 X10*3/uL (0.0-0.2); Basophils Percent Auto 1.3 % (0-2); Eosinophils Absolute Auto 0.2 X10*3/uL (0.0-0.4); Eosinophils Percent Auto 2.2 % (0-4); Hematocrit 41.5 % (37.0-47.0); Hemoglobin 13.3 g/dl (12.0-16.0); Imm Gran Abs Auto 0.02 X10*3/uL (0.00-0.03); Imm Gran Pct Auto 0.3 % (0.0-0.4); Lymphocytes Absolute Auto 2.4 X10*3/uL (1.2-4.9); Lymphocytes Percent Auto 34.9 % (20-40); Mean Corpuscular Hemoglobin 25.5 pg (27.0-33.0); Mean Corpuscular Volume 79.5 fL (80.0-98.0); Mean Platelet Volume 10.1 fL (9.4-12.3); Monocytes Absolute Auto 0.4 X10*3/uL (0.1-1.2); Monocytes Percent Auto 6.4 % (2-11); Neutrophils Absolute Auto 3.7 x10*3/uL (2.0-8.3); Neutrophils Percent Auto 54.9 % (45-73); Platelet Count 259 X10*3/uL (160-400); Red Blood Count 5.22 X10*6/uL (4.20-5.50); Red Cell Distribution Width 14.1 % (11.0-16.0); White Blood Count 6.8 X10*3/uL (4.8-10.8)
[2022-12-15 13:19] LABS: Alanine Aminotransferase 10 U/L (0-31); Albumin Level 4.3 g/dL (3.5-5.0); Alkaline Phosphatase 87 U/L (39-117); Anion Gap 16 (12-20); Aspartate Amino Transferase 14 U/L (5-31); Bilirubin Total 0.5 mg/dL (0.0-1.0); Blood Urea Nitrogen 12 mg/dL (9-16); C Reactive Protein 0.17 mg/dL (< or = 0.50); Calcium 9.8 mg/dL (8.4-10.2); Carbon Dioxide 26 mmol/L (22-29); Chloride 105 mmol/L (96-108); Estimated Glomerular Filt Rate > 60; Glucose Random 90 mg/dL (60-115); Potassium 3.6 mmol/L (3.3-5.1); Sodium 143 mmol/L (135-145); Total Protein 7.5 g/dL (6.5-8.0)
[2022-12-16 16:48] LABS: IgA 339 mg/dL (70-320); IgG 1066 mg/dL (600-1540); IgM 92 mg/dL (50-300)
== END 2022-12-15 09:51 | disposition home or self-care (01) ==
LOC: HO.LAB 09:50
PROVIDERS: PCP Internal Medicine Geriatric Medicine; Visit Provider Internal Medicine Gastroenterology
DX: R14.0 Abdominal distension (gaseous) (principal); R10.2 Pelvic and perineal pain; L30.9 Dermatitis, unspecified; K75.81 Nonalcoholic steatohepatitis (NASH); Z91.018 Allergy to other foods
CPT/HCPCS: 36415; 80053; 82784; 85025; 86003; 86140; 99212

== ENCOUNTER 2022-12-15 09:50 | Outpatient (AMB) | payer OTHER, SELFPAY ==
--- NOTE | 2022-12-15 10:19 | A.OFFVIS_ITS ---
Intake Vital Signs 12/15/22 10:20 Height 5 ft 3 in Weight 127 lb 13.89 oz BMI 22.6 BP 130/82 Blood Pressure Location Lt brachial Position Sitting Pulse 80 Intake Visit Reasons: 8 week follow up Intake Note: Kaitlin presents in the office as a 8 week follow up. CC: She is concerned because she is supposed to have another US. Dance Instructor Required: Yes Dance Instructor Name: Lauren [id number] Allergies ciprofloxacin [From Cipro] Allergy (Intermediate, Verified 12/15/22 10:20) HIVES/ITCHING oxycodone [Percocet] Allergy (Intermediate, Verified 12/15/22 10:20) Hives Penicillins Allergy (Intermediate, Verified 12/15/22 10:20) HIVES/ITCHING simvastatin [Simvastatin] Allergy (Intermediate, Verified 12/15/22 10:20) HIVES/ITCHINIG vancomycin [Vancomycin] Allergy (Intermediate, Verified 12/15/22 10:20) HIVES/ITCHING latex Allergy (Mild, Verified 12/15/22 10:20) Rash milnacipran [From Savella] Allergy (Mild, Verified 12/15/22 10:20) Hives Sulfa (Sulfonamide Antibiotics) Allergy (Mild, Verified 12/15/22 10:20) Shortness of Breath dupilumab [From Dupixent Pen] Adverse Reaction (Intermediate, Verified 12/15/22 10:20) neuropathy HPI 8 week follow up HPI Details 67 yr old f w hx of cholecystectomy, her e for f/u RECAP[place] [facility] [place] ? She says she has a bacteria in her stomach ? h pylori. Significant bloating she could not eat. ? She had taken clarithromycin and Flagyl for 3- 4 days and began with nausea and vomiting. She finally had gone to the ED, Antibiotoic therapy discontinued ? despite GB taken out 1 yr ago she has simialr sx ? Her appetite is not great however she is not had any further vomiting, however continues with intermittent nausea, bloating and reflux though she discontinued omeprazole as well. ? She has very unstable BP- always in the ED. ? She is allergic to every antibiotic as well as anesthesia. Her daughter says that she needs to have monitoring whenever she is given any of the above. Her daughter was extremely concerned taking medications ? She did have a an abdominal ultrasound 08/08/19--fatty liver, otherwise ok ? LABS 08/2019--nml BMP, LFT< CBC, microcytosis ?? ? EGD/colonoscopy--01/2020---patchy erythema, nml colon, bx with h pylori she was given quadruple therapy for h pylori subsequent H pylori breath test 04/2020---Negative, repeat H pylori 10/2021-- negATIVE GES--normal I also gave her linaclotide for constipation thought to be due to her medications she had BENITES and manometry at [facility] 04/2021--pos Demeeester, normal manometry IMAGING: CT 12/2019--- mild constipation, no acute findings ? ?US 2021- normal apart from mild aortic atherosclerosis US 10/2022--- aortic plaque seen, otherwise no acute findings She did have stool pos for norvovirus 09/2022 she also had fecal fat but nml panc elastase ?INTERIM: she still has post prandial diarrhea and discomfort she has sx within 20 mins no blood in stools pain is more in the lower abdomen, crampy in nature--persistent since last time she can have bloating she is still taking pantoprazole \ no smoking EXAM: GENERAL: The patient is well developed and nontoxic. VITAL SIGNS:see workflow HEENT: Nonicteric sclerae, PERRLA, EOMI. Oropharynx clear. Moist mucous membranes. Conjunctivae appear well perfused. No thyroid mass. CHEST: Chest wall is nontender. HEART: Regular rate and rhythm without murmurs. LUNGS: Clear to auscultation bilaterally. ABDOMEN: Soft, positive bowel sounds, tender suprapubic area, no organomegaly. SKIN: No rash, no excessive bruising, petechiae, or purpura. NEUROLOGIC: Cranial nerves II-XII intact without motor/sensory deficit. psych--nml Assessment & Plan 1/? pos Demeester and GERD--seems to be doing better with PPI 2/ post prandial diarrhea and abdo disco mfort ? SIBO, BAM< functional dyspepsia, panc insuff PLAN: 1/ repeat stool fat test 2/ repeat labs incl rast 3/ Doppler to r/o mesenteric ischemia e sp as has aortic plaque 4/ trial of rifaximin 5/ if above neg then repeat EGD PFSH Medical History Bleeding hemorrhoids Eczema VERA positive DVT (deep venous thrombosis) Tachycardia Dyspnea Sinusitis Rash URI (upper respiratory infection) History of anesthesia problem Osteoarthritis Fibromyalgia GERD (gastroesophageal reflux disease) Cervicalgia Depression History of vertigo Varicose vein of leg Chronic pain of left knee Allergic rhinitis Anxiety Asthma Migraine Surgical History History of esophagogastroduodenoscopy (EGD) History of repair of right rotator cuff Hx of bilateral breast reduction surgery Hx of hemorrhoidectomy H/O varicose vein ligation and stripping Hx of colonoscopy Hx of hysterectomy Hx of appendectomy Hx laparoscopic cholecystectomy Status post right rotator cuff repair Family History Father No problems noted. Mother Family history of high blood pressure Dementia Social History Household Members: None Alcohol intake: never Patient Tobacco Use Status: Never used Tobacco Advance Directives Date on File: 04/03/18 Current occupational status: unemployed Current occupation: Left Handed Physical Exam Vital Signs: Last Vital Signs Pulse 80 12/15/22 10:20 BP 130/82 12/15/22 10:20 BMI result Body Mass Index 22.6 Assessment & Plan Assessment & Plan (1) Postprandial abdominal bloating: Code(s): R14.0 - Abdominal distension (gaseous) (2) Eczema: Code(s): L30.9 - Dermatitis, unspecified (3) Suprapubic pain: Code(s): R10.2 - Pelvic and perineal pain Orders: Orders Rast Allergen Today L30.9 - Dermatitis, unspecified, R10.2 - Pelvic and perineal pain, R14.0 - Abdominal distension (gaseous) Immunoglobulins,IgG IgA IgM Today R10.2 - Pelvic and perineal pain, R14.0 - Abdominal distension (gaseous) Fecal Fat Qualitative Today R10.2 - Pelvic and perineal pain, R14.0 - Abdominal distension (gaseous) C Reactive Protein Today R10.2 - Pelvic and perineal pain, R14.0 - Abdominal distension (gaseous) Complete Blood Count Auto Diff Today R10.2 - Pelvic and perineal pain, R14.0 - Abdominal distension (gaseous) Comprehensive Met. Panel Today K75.81 - Nonalcoholic steatohepatitis (POND), R10.2 - Pelvic and perineal pain, R14.0 - Abdominal distension (gaseous) Medications: New rifaximin 550 mg PO TID 42 tabs 0RF 2 weeks Coding Level of Care Code Est Pt Level 3 (49265) Diagnoses Postprandial abdominal bloating R14.0 Eczema L30.9 Suprapubic pain R10.2
[2022-12-15 10:20] VITALS: BP 130/82; PULSE 80; BMI 22.6
== END 2022-12-15 11:35 | disposition home or self-care (01) ==
PROVIDERS: PCP Internal Medicine Geriatric Medicine; Visit Provider Internal Medicine Gastroenterology
DX: R14.0 Abdominal distension (gaseous) (principal); L30.9 Dermatitis, unspecified; R10.2 Pelvic and perineal pain
CPT/HCPCS: 99213

== ENCOUNTER 2022-12-18 11:37 | Outpatient (REF) | payer OTHER, SELFPAY ==
[2022-12-23 16:44] LABS: Fecal Fat Qualitative Abnormal (Normal)
== END 2022-12-18 11:38 | disposition home or self-care (01) ==
LOC: HO.LNP 11:37
PROVIDERS: Visit Provider Internal Medicine Gastroenterology
DX: R14.0 Abdominal distension (gaseous) (principal); R10.2 Pelvic and perineal pain
CPT/HCPCS: 82705

== ENCOUNTER 2022-12-22 21:30 | Emergency (ER) | payer OTHER, SELFPAY ==
[2022-12-22 21:44] VITALS: BP 202/110; PULSE 98; RESP 18; TEMP 36.6; O2SAT 95; BMI 22.5
--- NOTE | 2022-12-22 21:48 | ECG_ITS ---
Test Reason : cp Blood Pressure : / mmHG Vent. Rate : 083 BPM Atrial Rate : 083 BPM P-R Int : 168 ms QRS Dur : 092 ms QT Int : 392 ms P-R-T Axes : 055 019 025 degrees QTc Int : 460 ms Normal sinus rhythm Nonspecific ST abnormality Abnormal ECG When compared with ECG of 24-APR-2022 16:33, T wave inversion less evident in Anterolateral leads Referred By: Generic ED Physician Electronically Signed By:ENID BRADLEY MD
[2022-12-22 22:10] LABS: MANUAL DIFF FLAG NO
[2022-12-22 22:11] LABS: Basophils Absolute Auto 0.1 X10*3/uL (0.0-0.2); Basophils Percent Auto 0.8 % (0-2); Eosinophils Absolute Auto 0.1 X10*3/uL (0.0-0.4); Hematocrit 41.5 % (37.0-47.0); Hemoglobin 13.3 g/dl (12.0-16.0); Imm Gran Abs Auto 0.02 X10*3/uL (0.00-0.03); Imm Gran Pct Auto 0.3 % (0.0-0.4); Lymphocytes Absolute Auto 2.5 X10*3/uL (1.2-4.9); Lymphocytes Percent Auto 31.8 % (20-40); Mean Corpuscular Hemoglobin 25.2 pg (27.0-33.0); Mean Corpuscular Volume 78.6 fL (80.0-98.0); Mean Platelet Volume 9.6 fL (9.4-12.3); Monocytes Absolute Auto 0.5 X10*3/uL (0.1-1.2); Monocytes Percent Auto 6.2 % (2-11); Neutrophils Absolute Auto 4.7 x10*3/uL (2.0-8.3); Neutrophils Percent Auto 59.9 % (45-73); Platelet Count 234 X10*3/uL (160-400); Red Blood Count 5.28 X10*6/uL (4.20-5.50); Red Cell Distribution Width 13.9 % (11.0-16.0); White Blood Count 7.8 X10*3/uL (4.8-10.8)
[2022-12-22 22:23] LABS: Anion Gap 15 (12-20); Blood Urea Nitrogen 15 mg/dL (9-16); Calcium 9.8 mg/dL (8.4-10.2); Carbon Dioxide 25 mmol/L (22-29); Chloride 108 mmol/L (96-108); Creatinine Clr Calc Pharmacy 74.2; Estimated Glomerular Filt Rate > 60; Glucose Random 102 mg/dL (60-115); Potassium 3.8 mmol/L (3.3-5.1); Sodium 144 mmol/L (135-145)
[2022-12-22 22:34] LABS: Troponin-I High Sensitivity < 2.7 ng/L (<3.5-17.0)
[2022-12-23] VITALS (10 sets, daily range): BP systolic 161–198; BP diastolic 83–104; PULSE 67–89; RESP 12–19; TEMP 36.8–36.9; O2SAT 94–99
--- NOTE | 2022-12-23 03:52 | ED_ITS ---
HPI - Chest Pain General Chief Complaint: Chest Pain Stated Complaint: Chest Pain, headache, red eye, high BP Time Seen by Provider: 12/23/22 03:35 Source: patient Mode of arrival: ambulatory Limitations: no limitations History of Present Illness HPI narrative: Patient does have history of hypertension takes valsartan 80 mg daily yesterday a.m. patient blood pressure was in 88/60 asymptomatic so she did not take herbal started prior to arrival in the evening 17:00 patient notice redness in the L eye subconjunctival hemorrhage checked her blood pressure was 202/110 patient denies any nausea/vomiting/palpitations/chest pain had mild frontal headache and heaviness no loss of vision Related Data Home Medications Medication Instructions Recorded Confirmed cholecalciferol (vitamin D3) 50 1 tab PO DAILY 12/14/19 11/10/22 mcg (2,000 unit) tablet hydrochlorothiazide 12.5 mg capsule 1 cap PO DAILY 12/14/19 11/10/22 ketotifen fumarate 0.025 % (0.035 1 drp ophthalmic (eye) BID PRN 12/14/19 11/10/22 %) eye drops Allergy Symptoms levalbuterol tartrate 45 2 puff inhalation Q4H PRN Wheezing 12/14/19 11/10/22 mcg/actuation aerosol inhaler lorazepam 1 mg tablet 1 tab PO BID 12/14/19 11/10/22 sumatriptan succinate 50 mg tablet 50 mg PO Q2-4H PRN Migraine 12/14/19 11/10/22 (Imitrex) Headache amitriptyline 50 mg tablet 50 mg PO BEDTIME 03/27/20 11/10/22 valsartan 80 mg tablet 80 mg PO DAILY 05/21/20 11/10/22 fluoxetine 20 mg capsule 20 mg PO DAILY 11/22/20 11/10/22 fluticasone propionate 50 2 spray intranasal DAILY 11/22/20 11/10/22 mcg/actuation nasal spray,suspension blood pressure test kit-large #1 ea 12/28/20 11/10/22 azelastine 137 mcg (0.1 %) nasal 2 spray intranasal BID 02/10/22 11/10/22 spray aerosol fexofenadine 180 mg tablet 180 mg PO DAILY 02/10/22 11/10/22 ezetimibe 10 mg tablet 10 mg PO DAILY 10/20/22 11/10/22 omeprazole 20 mg capsule,delayed mg PO QAM 10/20/22 11/10/22 release topiramate 25 mg tablet 25 mg PO DAILY 10/20/22 11/10/22 Previous Rx's Medication Instructions Recorded epinephrine 0.3 mg/0.3 mL 0.3 ml IM DIRECTED anaphylaxis 08/14/20 injection, auto-injector (EpiPen 30 days #2 ea 2-Jeremi) plecanatide 3 mg tablet (Trulance) 3 mg PO DAILY 30 days #30 tabs 08/22/20 inhalational spacing device #1 ea 01/29/21 (Aerochamber MV spacer) loperamide 2 mg capsule (Imodium 2 mg PO Q6H PRN loose stool 10 02/22/21 A-D) days #30 caps levalbuterol HCl 1.25 mg/3 mL 1.25 mg (3 mL) inhalation Q6H PRN 03/04/21 solution for nebulization (Xopenex) shortness of breath or wheezing 30 days #360 mL cyclobenzaprine 5 mg tablet 5 mg PO BEDTIME PRN muscle spasm 10/27/21 #10 tabs gabapentin 100 mg capsule 100 mg PO BEDTIME #30 caps 02/10/22 lansoprazole 30 mg capsule,delayed 30 mg PO DAILY #90 caps 02/10/22 release montelukast 10 mg tablet 10 mg PO DAILY #90 tabs 03/04/22 doxycycline monohydrate 100 mg 100 mg PO BID 14 days #28 tabs 03/07/22 tablet tezepelumab-ekko 210 mg/1.91 mL 210 mg (1.91 mL) subcut Q4W 12 03/14/22 (110 mg/mL) subcutaneous syringe months #24.83 mL (Tezspire) sucralfate 100 mg/mL oral 10 ml PO BID #1,000 mL 03/18/22 suspension ondansetron 4 mg disintegrating 4 mg PO Q6H PRN nausea and 04/24/22 tablet vomiting #14 tabs albuterol sulfate 2.5 mg/3 mL 2.5 mg (3 mL) inhalation Q6H PRN 06/13/22 (0.083 %) solution for nebulization shortness of breath or wheezing 30 days #180 mL albuterol sulfate 90 mcg/actuation 2 puff PO Q4H PRN Wheezing #8.5 06/13/22 aerosol inhaler grams budesonide 0.5 mg/2 mL suspension 0.5 mg (2 mL) inhalation DAILY 06/13/22 for nebulization #180 mL mometasone-formoterol HFA 200 2 puff inhalation BID 30 days #13 06/13/22 mcg-5 mcg/actuation aerosol grams inhaler (Dulera) tiotropium bromide 1.25 2 puff inhalation DAILY 30 days #4 06/13/22 mcg/actuation mist for inhalation grams (Spiriva Respimat) triamcinolone acetonide 0.1 % 1 appl topical BID 30 days #80 06/13/22 topical ointment grams diclofenac potassium 50 mg tablet 50 mg PO BID PRN for pain #60 tabs 09/04/22 dicyclomine 10 mg capsule 10 mg PO TID #180 caps 10/20/22 prednisone 10 mg tablet 10 mg PO DAILY #30 tabs 11/04/22 hydrocortisone acetate 25 mg 25 mg MO BID hemorrhoid pain #24 ea 11/10/22 rectal suppository (Anusol-HC) menthol 0.44 %-zinc oxide 20.6 % 1 appl topical QID PRN Hemorrhoid 11/10/22 topical ointment (Calmoseptine) pain #113 grams rifaximin 550 mg tablet 550 mg PO TID 2 weeks #42 tabs 12/15/22 Allergies Allergy/AdvReac Type Severity Reaction Status Date / Time ciprofloxacin [From Cipro] Allergy Intermediate HIVES/ITCHI Verified 12/15/22 10:20 NG oxycodone [Percocet] Allergy Intermediate Hives Verified 12/15/22 10:20 Penicillins Allergy Intermediate HIVES/ITCHI Verified 12/15/22 10:20 NG simvastatin [Simvastatin] Allergy Intermediate HIVES/ITCHI Verified 12/15/22 10:20 NIG vancomycin [Vancomycin] Allergy Intermediate HIVES/ITCHI Verified 12/15/22 10:20 NG latex Allergy Mild Rash Verified 12/15/22 10:20 milnacipran [From Savella] Allergy Mild Hives Verified 12/15/22 10:20 Sulfa (Sulfonamide Allergy Mild Shortness Verified 12/15/22 10:20 Antibiotics) of Breath dupilumab [From [employer] Solos Pen] AdvReac Intermediate neuropathy Verified 12/15/22 10:20 Review of Systems 2 Review of Systems: Yes all other systems are reviewed and are negative [facility] Past Medical History Medical History Bleeding hemorrhoids Eczema VERA positive DVT (deep venous thrombosis) Tachycardia Dyspnea Sinusitis Rash URI (upper respiratory infection) History of anesthesia problem Osteoarthritis Fibromyalgia GERD (gastroesophageal reflux disease) Cervicalgia Depression History of vertigo Varicose vein of leg Chronic pain of left knee Allergic rhinitis Anxiety Asthma Migraine Surgical History History of esophagogastroduodenoscopy (EGD) History of repair of right rotator cuff Hx of bilateral breast reduction surgery Hx of hemorrhoidectomy H/O varicose vein ligation and stripping Hx of colonoscopy Hx of hysterectomy Hx of appendectomy Hx laparoscopic cholecystectomy Status post right rotator cuff repair Family History Family History Father No problems noted. Mother Family history of high blood pressure Dementia Social History Social History Household Members: None Alcohol intake: never Patient Tobacco Use Status: Never used Tobacco Smoked in Last 30 Days: No Use of substances other than those prescribed or required for medical reasons: No Advance Directives: No Advance Directives Information Provided: Yes Advance Directives Date on File: 04/03/18 Current occupational status: unemployed Current occupation: Left Handed Physical Exam 2 Vital Signs: Vital Signs: Last Vital Signs Temp 98.2 F 12/23/22 05:15 Pulse 76 12/23/22 05:15 Resp 19 12/23/22 05:15 BP 174/93 H 12/23/22 05:15 Pulse Ox 94 12/23/22 05:15 O2 Del Method Room Air 12/23/22 05:15 BMI result Body Mass Index 22.5 Appearance: Alert. Oriented X3. No acute distress. Eyes: PERRLA, No Nystagmus left eye subconjunctival hemorrhage anterior chamber normal fundus normal ENT: Pharynx normal. Oral Mucosa moist Neck: Normal inspection. Neck supple. CVS: Normal heart rate and rhythm. Pulses normal. Respiratory: No respiratory distress. Equal air entry bilateral, no wheezing/rales/rhonchi Abdomen: Soft and nontender. Bowel sounds are present, Skin: Skin warm and dry. Normal skin color. Normal skin turgor. Extremities: No lower extremity edema. No calf tenderness Neuro: Oriented X 3. No motor deficit. No sensory deficit.No cerebellar signs , cranial nerves II-XII intact Medical Decision Making Medical Decision Making [facility] Narrative: Patient with accelerated hypertension clinic take her medication likely the cause blood pressure improved during stay in the ER patient advised take herbal started on daily and follow-up with PCP Differential Diagnosis Differential Diagnoses: The differential diagnosis associated with the presentation includes Accelerated hypertension/subconjunctival hemorrhage Lab Data [facility] Lab Attestation statement: I reviewed the patient's lab results. 12/22/22 22:04 12/22/22 22:04 Labs: Lab Results 12/22/22 Range/Units 22:04 WBC 7.8 (4.8-10.8) X10*3/uL RBC 5.28 (4.20-5.50) X10*6/uL Hgb 13.3 (12.0-16.0) g/dl Hct 41.5 (37.0-47.0) % MCV 78.6 L (80.0-98.0) fL MCH 25.2 L (27.0-33.0) pg MCHC 32.0 (31.0-35.0) g/dl RDW 13.9 (11.0-16.0) % Plt Count 234 (160-400) X10*3/uL MPV 9.6 (9.4-12.3) fL Immature Gran % (Auto) 0.3 (0.0-0.4) % Neut % (Auto) 59.9 (45-73) % Lymph % (Auto) 31.8 (20-40) % Lander % (Auto) 6.2 (2-11) % Eos % (Auto) 1.0 (0-4) % Baso % (Auto) 0.8 (0-2) % Lymph # (Auto) 2.5 (1.2-4.9) X10*3/uL Lander # (Auto) 0.5 (0.1-1.2) X10*3/uL Eos # (Auto) 0.1 (0.0-0.4) X10*3/uL Baso # (Auto) 0.1 (0.0-0.2) X10*3/uL Abs Immat Gran (auto) 0.02 (0.00-0.03) X10*3/uL Absolute Neuts (auto) 4.7 (2.0-8.3) x10*3/uL Absolute Nucleated RBC 0.000 (0.0-0.012) X10*3/uL Nucleated RBC % (auto) 0.0 (0.0-0.2) /100WBC Sodium 144 (135-145) mmol/L Potassium 3.8 (3.3-5.1) mmol/L Chloride 108 (96-108) mmol/L Carbon Dioxide 25 (22-29) mmol/L Anion Gap 15 (12-20) BUN 15 (9-16) mg/dL Creatinine 0.60 (0.5-1.4) mg/dL Estim Creat Clear Calc 74.2 Estimated GFR > 60 Random Glucose 102 (60-115) mg/dL Calcium 9.8 (8.4-10.2) mg/dL Troponin I High Sens < 2.7 (<3.5-17.0) ng/L Independent Interpretation I performed an independent interpretation of an: EKG Interpretation: Normal sinus rhythm heart rate 83 beats per minute normal interval normal axis no acute ST-T wave changes Discharge Plan Discharge Clinical Impression: Hypertension Patient Disposition: Home, Self-Care Instructions: Chronic Hypertension (ED) Additional Instructions: Take blood pressure medication daily Check blood pressure before taking the medicine and before going to bed Normal pressure should be less than 135/85 If it continues to be high seek attention with your PCP Prescriptions: No Action epinephrine [EpiPen 2-Jeremi] 0.3 mg/0.3 mL auto-injector 0.3 ml IM DIRECTED 30 Days Qty: 2 6RF Trulance 3 mg tablet 3 mg PO DAILY 30 Days Qty: 30 3RF loperamide [Imodium A-D] 2 mg capsule 2 mg PO Q6H PRN (Reason: loose stool) 10 Days Qty: 30 0RF levalbuterol HCl [Xopenex] 1.25 mg/3 mL solution for nebulization 1.25 mg inhalation Q6H PRN (Reason: shortness of breath or wheezing) 30 Days Qty: 360 11RF montelukast 10 mg tablet 10 mg PO DAILY Qty: 90 3RF Tezspire 210 mg/1.91 mL (110 mg/mL) syringe 210 mg subcut Q4W 360 Days Qty: 24.83 0RF sucralfate 100 mg/mL suspension 10 ml PO BID Qty: 1000 0RF diclofenac potassium 50 mg tablet 50 mg PO BID PRN (Reason: for pain) Qty: 60 0RF prednisone 10 mg tablet 10 mg PO DAILY Qty: 30 1RF ketotifen fumarate 0.025 % (0.035 %) drops 1 drp ophthalmic (eye) BID PRN (Reason: Allergy Symptoms) hydrochlorothiazide 12.5 mg capsule 1 cap PO DAILY lorazepam 1 mg tablet 1 tab PO BID levalbuterol tartrate 45 mcg/actuation HFA aerosol inhaler 2 puff inhalation Q4H PRN (Reason: Wheezing) cholecalciferol (vitamin D3) 50 mcg (2,000 unit) tablet 1 tab PO DAILY sumatriptan succinate [Imitrex] 50 mg Tablet 50 mg PO Q2-4H PRN (Reason: Migraine Headache) cyclobenzaprine 5 mg tablet 5 mg PO BEDTIME PRN (Reason: muscle spasm) Qty: 10 0RF ondansetron 4 mg tablet,disintegrating 4 mg PO Q6H PRN (Reason: nausea and vomiting) Qty: 14 0RF valsartan 80 mg tablet 80 mg PO DAILY amitriptyline 50 mg tablet 50 mg PO BEDTIME fluoxetine 20 mg capsule 20 mg PO DAILY fexofenadine 180 mg tablet 180 mg PO DAILY fluticasone propionate 50 mcg/actuation spray,suspension 2 spray intranasal DAILY (DME) blood pressure test kit-large Kit See Rx Instructions .ROUTE BID Qty: 1 Rx Instructions: As directed doxycycline monohydrate 100 mg tablet 100 mg PO BID 14 Days Qty: 28 0RF azelastine 137 mcg (0.1 %) aerosol,spray 2 spray intranasal BID lansoprazole 30 mg capsule,delayed release(DR/EC) 30 mg PO DAILY Qty: 90 1RF gabapentin 100 mg capsule 100 mg PO BEDTIME Qty: 30 2RF ezetimibe 10 mg tablet 10 mg PO DAILY omeprazole 20 mg capsule,delayed release(DR/EC) PO QAM topiramate 25 mg tablet 25 mg PO DAILY dicyclomine 10 mg capsule 10 mg PO TID Qty: 180 0RF triamcinolone acetonide 0.1 % ointment 1 appl topical BID 30 Days Qty: 80 1RF albuterol sulfate 90 mcg/actuation HFA aerosol inhaler 2 puff PO Q4H PRN (Reason: Wheezing) Qty: 8.5 11RF budesonide 0.5 mg/2 mL suspension for nebulization 0.5 mg inhalation DAILY Qty: 180 3RF Spiriva Respimat 1.25 mcg/actuation mist 2 puff inhalation DAILY 30 Days Qty: 4 11RF Dulera 200-5 mcg/actuation HFA aerosol inhaler 2 puff inhalation BID 30 Days Qty: 13 11RF albuterol sulfate 2.5 mg /3 mL (0.083 %) solution for nebulization 2.5 mg inhalation Q6H PRN (Reason: shortness of breath or wheezing) 30 Days Qty: 180 11RF (DME) Aerochamber MV Spacer See Rx Instructions .ROUTE .MEDSUPPLY Qty: 1 0RF Rx Instructions: As directed rifaximin 550 mg tablet 550 mg PO TID 14 Days Qty: 42 0RF menthol-zinc oxide [Calmoseptine] 0.44-20.6 % ointment 1 appl topical QID PRN (Reason: Hemorrhoid pain) Qty: 113 0RF hydrocortisone acetate [Anusol-HC] 25 mg suppository 25 mg MO BID Qty: 24 2RF Interventions: ED Discharge Assessment Last Done: 12/23/22 05:47 Discharge Date/Time: 12/23/22 05:47
== END 2022-12-23 05:47 | disposition home or self-care (01) ==
PROVIDERS: Emergency Provider Internal Medicine; PCP Internal Medicine Geriatric Medicine
DX: I10 Essential (primary) hypertension (principal); Z79.899 Other long term (current) drug therapy
CPT/HCPCS: 36415; 80048; 84484; 85025; 93005; 99283; 99285

== ENCOUNTER 2022-12-30 10:58 | Outpatient (AMB) | payer OTHER, SELFPAY ==
--- NOTE | 2022-12-30 11:07 | A.OFFVIS_ITS ---
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 Allergies ciprofloxacin [From Cipro] Allergy (Intermediate, Verified 12/30/22 11:12) HIVES/ITCHING oxycodone [Percocet] Allergy (Intermediate, Verified 12/30/22 11:12) Hives Penicillins Allergy (Intermediate, Verified 12/30/22 11:12) HIVES/ITCHING simvastatin [Simvastatin] Allergy (Intermediate, Verified 12/30/22 11:12) HIVES/ITCHINIG vancomycin [Vancomycin] Allergy (Intermediate, Verified 12/30/22 11:12) HIVES/ITCHING latex Allergy (Mild, Verified 12/30/22 11:12) Rash milnacipran [From Savella] Allergy (Mild, Verified 12/30/22 11:12) Hives Sulfa (Sulfonamide Antibiotics) Allergy (Mild, Verified 12/30/22 11:12) Shortness of Breath dupilumab [From Dupixent Pen] Adverse Reaction (Intermediate, Verified 12/30/22 11:12) neuropathy HPI HPI Comments History of Present Illness Details The patient is a 67-year-old woman known allergic rhinitis and severe persistent asthma. She has been using her respiratory therapy. Still having significant shortness of breath because she has been exposed to significant smoke and fumes from her upstairs neighbor. She is very the 94 hold also lives in the same environment and also has been getting worsening respiratory symptoms. She will talk to the now alert and also I gave her a number of an asthma association that may be able to help her. Continues to have wheezing at times. She is waking up more often. Also having more coughing. She has been more congested. She has been getting allergy medications from celluloid trimmer. He will bring maximizing her respiratory therapy. She has tried certain biologic therapies with her celluloid trimmer. She had a bad reaction to Xolair I am not sure if she try Dupixent or interlukin 5 inhibitors yet. The patient has severe persistent asthma with significant wheezing right now on examination. She has been using the Dupixent injections every 2 weeks with very good effect. She continues on respiratory therapy. She has not required any prednisone which is been great. It also has been helping her chronic rhinitis. In the meantime she is dealing with issues with abdominal pain and reflux. She was evaluated by GI and appears to be have some peptic ulcer disease and H pylori. Therefore she was started on therapy although difficult for her to tolerate. Now she is planned to have an endoscopy which should be reassuring. In the meantime she needs to continue with the reflux diet and she also understands the acid reflux can exacerbate her respiratory issues. 08/21/2020 the patient is here for alvaro wang follow-up visit. She continues to have a hard time with her asthma. Significant wheezing moderate severity. 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 This point she cannot relocate due to financial constraints. She had been responding well to Dupixent about, started developing adverse reactions burning sensation in her legs. She initially developed the symptoms and stop the medicine and the symptoms did improve. Then she restarted the medication and the burning sensation restarted. Now she is reluctant to continue it. In the meantime she has failed Xolair. We did check her laboratory data in her eosinophils are within normal therefore the use of other biologics regimens may be limited. The patient is not interested in allergy shots at this time since she use them for many years without any significant improvement. I will offer her the lower dose Dupixent once her burning sensation worse off with the hope that she can tolerate that more does. If he does develop symptoms again then she is going to have to stop it altogether. Currently she is taking prednisone and also more to the pharmacy. In the meantime she does continue the Dulera and the Spiriva with partial improvement of her symptoms. 11/22/2020 the patient is here for alvaro wang follow-up visit. Since we last spoke she took her Dupixent about a week ago. She was feeling excellent prior to taking it. Her breathing was good in her neuropathy and paresthesias was also resolved. She decided to rechallenge herself taking Dupixent. She started developing afterwards some chest tightness and chest congestion. She also complained of I congestion and sinus congestion. In addition to that noted complaining worsening burning sensation of the lower extremity. Her symptoms are moderate to severe. I will give her Solu-Medrol today to help her easily the symptoms. In the meantime she has felt some ectopy. She is also developing issues with blood pressure. She needs to be seen by her primary care doctor. She does have an appointment next week which is reassuring. She went to the ER once or twice because of labile blood pressure. 01/29/2021 the patient is here for a pul [facility] follow-up visit. The patient overall has been doing well. She has been off that the picks and now for many months. She has not noticed any significant worsening of her breathing. At this point after her bad reaction to it she wants to stay away from biologics. She continues on the Dulera and also using Spiriva. She does have a rescue inhaler. She has required prednisone 1 since we last time we met back in October. Usually hall the top months for her. She will call if any issues arise. At this time we did go over her inhalers. She felt she did better on Advair. But, I suggest she stands Dulera because it feels stronger medication for her. However I will add a spacer in order for her to have a more effective falling of distribution. We did talk a vaccines. The patient does not want to get a flu shot. I did recommend she at least get the Prevnar 13 vaccine. She will consider it and will discuss it further during the next visit in 6 months. 08/30/2021 the patient is here for a pulmonary follow-up visit. She continues to struggle with her nasal congestion from her allergies and also her asthma. She did require recent prednisone taper because of her symptoms. Now that she is concerned that now she is off the prednisone her symptoms have been worsening. Mainly the nasal congestion. She tried biologics in the past in the form of Dupixent which significantly helped her, but, resulted in adverse effects. She also tried and failied Xolair. At this point she would like to hold off all biologics because of that. Her IgE in her eosinophil level was also not significantly elevated. The patient may be a good candidate for further biologic therapy in the future including Tezspire. in the meantime she is maximizing her respiratory therapy. She is also maximized on her allergy medicine. Another option for her Daliresp. However she does not have significant weight to lose. She lost a lot of weight while dealing with C diff infection. She is taking probiotics right now on were avoiding all source of antibiotics at this time. 03/07/2022 the patient is here for pulmonary follow-up visit. She continues to have her significant asthma symptoms and also nasal congestion. Moderate severity. She continues to be on chronic prednisone because of the severity of her symptoms. She also continues with respiratory therapy. Based on her steroid dependent asthma the patient it is more agreeable to considering a different biologic regimen. Again she already tried Xolair in Dupixent. Although Dupixent was helpful initially the patient then became symptomatic with significant neuropathy and had to stop it. The patient is agreeable to looking into starting Tezspire. at this point the patient is having significant wheezing on examination and will require additional prednisone. Will also start the process for the biologic regimen. The 06/13/2022 the patient is here for pulmonary follow-up visit. She is having hard time with her asthma specially with the weather being so high. She is having increasing shortness of breath and wheezing. Unfortunately she is also having migraines. She has not been able to start the Tezspire although was already approved. I did reassure that when she does started she will feel a lot better. She also continues to have significant pruritus due to her eczema. Explained to her that this will also improve when she starts the biologic therapy. The patient has been off the prednisone for little bit of time which is reassuring. She continues to respond well to her inhaler therapy. She also uses her nebulizer 3 times a day. 12/30/2022 the patient is here for a pul monary follow-up visit. She continues to struggle with her asthma. Complains of chest tightness and wheezing. She also has a cough which is nonproductive. In addition to that her eczema seems to be getting worse. She has done well with the Dupixent but she had a bad reaction to that and she had to stop it. We did consider starting a different biologic but the patient is reluctant at this time. She has been concerned about other issues with her health. She has been having some chest discomfort. She also had significant headaches and was noted to have hypertensive urgency. She did go to the ER recently because of the blood pressure that was severely elevated. There she had blood work. Her EKG was considered to be abnormal. The patient was discharged. The patient needs to see Cardiology to have a further evaluation of the ongoing chest discomfort and to help her with her double product. Once the patient is better from the cardiovascular standpoint we can then revisit the possibility of starting biologic therapy. She continues to tolerate the prednisone. Though she understands prednisone has a lot of side effects and could give her significant adverse effects in the future. Therefore will try to minimize the use prednisone. Although, with all her allergies and hypersensitivities to medications is 1 of the only thing she can take to help her symptoms. [facility] Medical History (Updated 12/30/22 @ 11:35 by Anson Valle MD) Abnormal electrocardiogram [ECG] [EKG] Chest pain Bleeding hemorrhoids Eczema VERA positive DVT (deep venous thrombosis) Tachycardia Dyspnea Sinusitis Rash URI (upper respiratory infection) History of anesthesia problem Osteoarthritis Fibromyalgia GERD (gastroesophageal reflux disease) Cervicalgia Depression History of vertigo Varicose vein of leg Chronic pain of left knee Allergic rhinitis Anxiety Asthma Migraine Surgical History History of esophagogastroduodenoscopy (EGD) History of repair of right rotator cuff Hx of bilateral breast reduction surgery Hx of hemorrhoidectomy H/O varicose vein ligation and stripping Hx of colonoscopy Hx of hysterectomy Hx of appendectomy Hx laparoscopic cholecystectomy Status post right rotator cuff repair Family History Father No problems noted. Mother Family history of high blood pressure Dementia Social History Household Members: None Alcohol intake: never Patient Tobacco Use Status: Never used Tobacco Advance Directives Date on File: 04/03/18 Current occupational status: unemployed Current occupation: Left Handed Review of Systems Const Reports headache(s), Denies night sweats and Reports weight loss ENT Denies change in voice, Reports headache(s), Denies lip swelling, Denies mouth pain, Reports nasal congestion, Reports nasal discharge, Reports nasal obst ruction, Reports post nasal drip and Denies tongue swelling Card Reports chest pain and Denies dyspnea Resp Denies chest congestion, Reports cough, Denies dyspnea and Reports wheezing GI Denies abdominal pain, Denies diarrhea and Denies loose stools Musc Denies no additional complaints Neuro Denies Neuro-related abnormal movements, Denies burning sensations, Reports headache(s) and Denies paresthesias Psych Denies no additional complaints Shabbir/Lymph Denies easy bleeding and Denies lymphadenopathy Aller/Immun Denies lip swelling, Denies tongue swelling and Reports wheezing Physical Exam Vital Signs: Last Vital Signs Pulse 89 12/30/22 11:10 Pulse Ox 97 12/30/22 11:10 Oxygen Delivery Method Room Air 12/30/22 11:10 BMI result Body Mass Index 22.7 Const General: cooperative, healthy appearing and comfortable Orientation/consciousness: oriented to person, oriented to place and oriented to time Neck Carotids: no bruits Chest Chest palpation & inspection: normal inspection of the chest and normal palpation of entire chest wall Resp Effort & Inspection: normal respiratory effort and prolonged expiratory phase Auscultation: no wheezes Cardio Rate: regular rate Heart sounds: S1 normal heart sound present and S2 normal heart sound present Peripheral pulses: Peripheral pulses 2+ throughout GI Inspection: Yes normal to inspection Skin Other: +2 edema, large rope-like varicosities greater than 3 mm CEAP Classification C4 - skin color changes Ep - Etiology Primary As - superficial veins P - reflux General skin exam: dry skin Neuro General: oriented to person, oriented to place and oriented to time Extrem Right lower extremity: full ROM, normal capillary refill and edema Left lower extremity: full ROM, normal capillary refill and edema Psych Mental Status: mental status grossly normal Assessment & Plan Assessment & Plan (1) Asthma: Code(s): J45.909 - Unspecified asthma, uncomplicated Qualifiers: Asthma complication type: uncomplicated Asthma persistence: persistent Asthma severity: severe Qualified Code(s): J45.50 - Severe persistent asthma, uncomplicated (2) Allergic reaction: Code(s): T78.40XA - Allergy, unspecified, initial encounter Qualifiers: Encounter type: initial encounter Qualified Code(s): T78.40XA - Allergy, unspecified, initial encounter (3) GERD (gastroesophageal reflux disease): Code(s): K21.9 - Gastro-esophageal reflux disease without esophagitis Qualifiers: Esophagitis bleeding: without hemorrhage Esophagitis presence: with esophagitis Qualified Code(s): K21.00 - Gastro-esophageal reflux disease with esophagitis, without bleeding (4) Sinusitis: Code(s): J32.9 - Chronic sinusitis, unspecified Qualifiers: Chronicity: acute Recurrence: recurrent Sinusitis location: maxillary Qualified Code(s): J01.01 - Acute recurrent maxillary sinusitis (5) Eczema: Code(s): L30.9 - Dermatitis, unspecified Qualifiers: Eczema type: intrinsic Qualified Code(s): L20.84 - Intrinsic (allergic) eczema (6) Abnormal electrocardiogram [ECG] [EKG]: Code(s): R94.31 - Abnormal electrocardiogram [ECG] [EKG] Plan Continue Dulera and Spiriva Continue nebulizer therapy prednisone as needed consider tezspire Reflux diet Nasal rinsing cardiology referral Follow-up 4-6 months Orders: Referrals Cardiology Referral R07.9 - Chest pain, unspecified, R94.31 - Abnormal electrocardiogram [ECG] [EKG] Coding Level of Care Code Est Pt Level 4 (73981) Diagnoses Severe persistent asthma without complication J45.50 Asthma complication type: uncomplicated Asthma persistence: persistent Asthma severity: severe Allergic reaction, initial encounter T78.40XA Encounter type: initial encounter Gastroesophageal reflux disease with esophagitis without hemorrhage K21.00 Esophagitis bleeding: without hemorrhage Esophagitis presence: with esophagitis Acute recurrent maxillary sinusitis J01.01 Chronicity: acute Recurrence: recurrent Sinusitis location: maxillary Intrinsic eczema L20.84 Eczema type: intrinsic Abnormal electrocardiogram [ECG] [EKG] R94.31 Time Spent (min) 17
[2022-12-30 11:10] VITALS: PULSE 89; O2SAT 97; BMI 22.7
== END 2022-12-30 11:43 | disposition home or self-care (01) ==
PROVIDERS: PCP Internal Medicine Geriatric Medicine; Visit Provider Hospitalist
DX: J45.50 Severe persistent asthma, uncomplicated (principal); T78.40XA Allergy, unspecified, initial encounter; K21.00 Gastro-esophageal reflux disease with esophagitis, without bleeding; J01.01 Acute recurrent maxillary sinusitis; L20.84 Intrinsic (allergic) eczema; R94.31 Abnormal electrocardiogram [ECG] [EKG]
CPT/HCPCS: 99214

== ENCOUNTER → 2022-12-30 10:58 | Outpatient (BNVA) | payer OTHER, SELFPAY | PROVIDERS: PCP Internal Medicine Geriatric Medicine; Visit Provider Hospitalist | DX: J45.50 Severe persistent asthma, uncomplicated (principal); J01.01 Acute recurrent maxillary sinusitis; L20.84 Intrinsic (allergic) eczema; K21.00 Gastro-esophageal reflux disease with esophagitis, without bleeding; R94.31 Abnormal electrocardiogram [ECG] [EKG]; T78.40XA Allergy, unspecified, initial encounter | CPT/HCPCS: 99212 ==

== ENCOUNTER 2023-03-09 10:45 | Outpatient (AMB) | payer OTHER, SELFPAY ==
[2023-03-09 11:16] VITALS: BP 170/60; PULSE 82; BMI 22.6
--- NOTE | 2023-03-09 11:16 | MHC.OFFVIS ---
Intake Vital Signs 03/09/23 11:16 Height 5 ft 3 in Weight 127 lb 6.835 oz BMI 22.6 BP 170/60 H Blood Pressure Location Lt brachial Position Sitting Pulse 82 Intake Visit Reasons: NPV/Abnormal ECG/Leonard Intake Note: NPV/Abnormal ECG/ pt its feeling fine some times she feels the palpitations and some shortness of breath. Medical Appointment Scheduler Required: No Accompanied by: Self / Same As Patient Allergies ciprofloxacin [From Cipro] Allergy (Intermediate, Verified 12/30/22 11:12) HIVES/ITCHING oxycodone [Percocet] Allergy (Intermediate, Verified 12/30/22 11:12) Hives Penicillins Allergy (Intermediate, Verified 12/30/22 11:12) HIVES/ITCHING simvastatin [Simvastatin] Allergy (Intermediate, Verified 12/30/22 11:12) HIVES/ITCHINIG vancomycin [Vancomycin] Allergy (Intermediate, Verified 12/30/22 11:12) HIVES/ITCHING latex Allergy (Mild, Verified 12/30/22 11:12) Rash milnacipran [From Savella] Allergy (Mild, Verified 12/30/22 11:12) Hives Sulfa (Sulfonamide Antibiotics) Allergy (Mild, Verified 12/30/22 11:12) Shortness of Breath dupilumab [From Dupixent Pen] Adverse Reaction (Intermediate, Verified 12/30/22 11:12) neuropathy Medication List - Last Reconciled 03/09/23 by Ruperto Alarcon MD albuterol sulfate 90 mcg/actuation 2 puffs PO Q4H PRN albuterol sulfate 2.5 mg (3 mL) inhalation Q6H PRN 30 days amitriptyline 50 mg PO BEDTIME azelastine 2 sprays intranasal BID blood pressure test kit-large As directed cholecalciferol (vitamin D3) 1 tab PO DAILY cyclobenzaprine 5 mg PO BEDTIME PRN diclofenac potassium 50 mg PO BID PRN dicyclomine 10 mg PO TID ezetimibe 10 mg PO DAILY fexofenadine 180 mg PO DAILY fluoxetine 20 mg PO DAILY fluticasone propionate 50 mcg/actuation 2 sprays intranasal DAILY hydrochlorothiazide 1 cap PO DAILY hydrocortisone acetate (Anusol-HC) 25 mg WI BID inhalational spacing device (Aerochamber MV spacer) As directed ketotifen fumarate 0.025%(0.035%) 1 drp ophthalmic (eye) BID PRN levalbuterol HCl (Xopenex) 1.25 mg (3 mL) inhalation Q6H PRN 30 days levalbuterol tartrate 45 mcg/actuation 2 puffs inhalation Q4H PRN lorazepam 1 tab PO BID losartan 50 mg PO DAILY menthol-zinc oxide 0.44-20.6 % (Calmoseptine) 1 appl topical QID PRN mometasone-formoterol 200-5 mcg/actuation (Dulera) 2 puffs inhalation BID 30 days montelukast 10 mg PO DAILY omeprazole mg PO QAM pravastatin 20 mg PO DAILY sucralfate 10 mL PO BID sumatriptan succinate (Imitrex) 50 mg PO Q2-4H PRN tezepelumab-ekko (Tezspire) 210 mg (1.91 mL) subcut Q4W 12 months tiotropium bromide 1.25 mcg/actuation (Spiriva Respimat) 2 puffs inhalation DAILY 30 days triamcinolone acetonide 0.1% 1 appl topical BID 30 days valsartan 80 mg PO DAILY zinc sulfate (Orazinc) 50 mg PO DAILY HPI HPI Comments History of Present Illness Details Kaitlin has been referred for evaluation abnormal EKG. Apparently told to have had this in the past. Patient herself does not have any known cardiac issues. She has asthma and states that whenever she is doing something active she gets chest tightness. Unclear if it is all exclusively asthma or if there is anything like angina along with. Blood pressure is on the higher side and she has had several readings like this in the past. [facility] Medical History Abnormal electrocardiogram [ECG] [EKG] Chest pain Bleeding hemorrhoids Eczema VERA positive DVT (deep venous thrombosis) Tachycardia Dyspnea Sinusitis Rash URI (upper respiratory infection) History of anesthesia problem Osteoarthritis Fibromyalgia GERD (gastroesophageal reflux disease) Cervicalgia Depression History of vertigo Varicose vein of leg Chronic pain of left knee Allergic rhinitis Anxiety Asthma Migraine Surgical History History of esophagogastroduodenoscopy (EGD) History of repair of right rotator cuff Hx of bilateral breast reduction surgery Hx of hemorrhoidectomy H/O varicose vein ligation and stripping Hx of colonoscopy Hx of hysterectomy Hx of appendectomy Hx laparoscopic cholecystectomy Status post right rotator cuff repair Family History Father No problems noted. Mother Family history of high blood pressure Dementia Social History Household Members: None Alcohol intake: never Patient Tobacco Use Status: Never used Tobacco Advance Directives Date on File: 04/03/18 Current occupational status: unemployed Current occupation: Left Handed Review of Systems Const Reports chills, Reports fatigue, Reports fever(s), Reports frequent falls, Reports weakness, Reports weight gain and Reports weight loss ENT Reports dizziness Card Reports chest pain, Reports leg edema, Reports lightheadedness, Reports palpitations, Reports dyspnea, Reports dyspnea on exertion and Reports orthopnea Resp Reports cough, Reports dyspnea and Reports dyspnea on exertion GI Reports bloating and Reports change in bowel habits Musc Reports muscle weakness, Reports numbness and Reports tingling Neuro Reports dizziness, Reports frequent falls, Reports numbness, Reports tingling and Reports weakness Endo Reports fatigue and Reports palpitations Physical Exam Vital Signs: Last Vital Signs Pulse 82 03/09/23 11:16 BP 170/60 H 03/09/23 11:16 BMI result Body Mass Index 22.6 Const General: comfortable and no acute distress Orientation/consciousness: patient oriented x3 HEENT Other: Unremarkable Head: Yes normal to inspection Neck Neck: Yes normal visual inspection Chest Chest palpation & inspection: normal inspection of the chest Resp Auscultation: wheezes and diminished lung sounds Cardio Palpation: normal PMI Heart sounds: S1 normal heart sound present, S2 normal heart sound present, no gallops, no murmurs and no rubs GI Palpation (GI): Soft to palpation Back/Spine/Pelvis Other: unremarkable Skin General skin exam: no rashes or lesions noted Neuro General: patient oriented x3 Extrem General: Yes normal to inspection Psych Mental Status: mental status grossly normal Office Procedures EKG Details: EKG with sinus rhythm at 82/Min; no significant ST-T changes and otherwise [place]remarkable[place]. [id number], Complete Assessment & Plan Assessment & Plan (1) Abnormal electrocardiogram [ECG] [EKG]: Code(s): R94.31 - Abnormal electrocardiogram [ECG] [EKG] (2) Uncontrolled hypertension: Code(s): I10 - Essential (primary) hypertension (3) Chest tightness: Code(s): R07.89 - Other chest pain Plan EKG today is not showing any acute findings but at the EKG from April shows diffuse ST depression along the anterolateral leads. Unclear if it is something from myocardial strain from hypertension. Clinically, she does sound wheezy and hence the chest tightness could just be from asthma. Any case, she will need further workup for ischemic heart disease. Unlikely that she will exercise on the treadmill adequately. As she is actively wheezing, not suitable for Lexiscan either. We can try to be to mean but her blood pressure is also high. Also, she has got numerous allergies listed and hence coronary CT with contrast might be an issue. We can start on amlodipine and hopefully blood pressure improved. If not, then just go up on the valsartan. Once blood pressure is stable, we can proceed with stress testing. Follow-up after the above. Orders: Orders CA echo transthoracic complete Today I25.10 - Atherosclerotic heart disease of [place] coronary artery without angina pectoris, R07.89 - Other chest pain CA dobutamine stress w ivette Today R07.89 - Other chest pain Medications: New amlodipine 10 mg PO DAILY 90 tabs 3RF R07.89 - Other chest pain Coding Level of Care Code New Pt Level 4 (27961) Diagnoses Abnormal electrocardiogram [ECG] [EKG] R94.31 Uncontrolled hypertension I10 Chest tightness R07.89 CPT Codes EKG - CPT: 30560-[id number], Complete ([id number])
== END 2023-03-09 11:51 | disposition home or self-care (01) ==
PROVIDERS: PCP Internal Medicine Geriatric Medicine; Visit Provider Internal Medicine
DX: I10 Essential (primary) hypertension (principal); R07.89 Other chest pain; R94.31 Abnormal electrocardiogram [ECG] [EKG]
CPT/HCPCS: 93010; 99204

== ENCOUNTER → 2023-03-09 10:45 | Outpatient (BNVA) | payer OTHER, SELFPAY | PROVIDERS: PCP Internal Medicine Geriatric Medicine; Visit Provider Internal Medicine | DX: R94.31 Abnormal electrocardiogram [ECG] [EKG] (principal); R07.89 Other chest pain; I10 Essential (primary) hypertension | CPT/HCPCS: 93005; 99202 ==

== ENCOUNTER → 2023-04-16 07:59 | Outpatient (REF) | payer OTHER, SELFPAY ==
--- NOTE | ~2023-04-16 | NM_ITS ---
Dobutamine Myocardial perfusion study Indication: Abnormal EKG, chest pain, assess for coronary disease and ischemia Technique: The patient was brought in for a Dobutamine perfusion study on 04/16/2023 and was injected dobutamine intravenously per protocol. Then 25 mCi of sestamibi was given intravenously. Images were obtained using the SPECT gamma camera interlaced with the gating device. Images were obtained in supine position. Resting perfusion study was performed on 04/22/2023. Patient was administered 25 mCi of sestamibi intravenously at rest. Images were then obtained in supine position. Images were processed with the software and compared side to side in short axis, horizontal long axis and vertical long axis views. Total DLP 119mGy-cm. Findings: Raw acquisition reviewed. Arms by the patient's side. The stress perfusion study showed no significant perfusion abnormality. Both uncorrected as well as CT attenuation corrected images were reviewed. The gated study shows normal LV systolic function with calculated LVEF of >70%. LV cavity is normal in size. The gated study shows normal wall thickening and contraction of segments. Resting study shows no significant perfusion abnormality. Gating at rest reveals normal wall motion with ejection fraction at >70%. The findings are consistent with no clear reversible or fixed perfusion abnormality. NM/NM ivette perf SPECT rest & str Impression: 1. Myocardial perfusion imaging study shows normal myocardial perfusion. 2. Gated LVEF is >70% during stress and rest. 3. Transient ischemic dilatation not present. EKG component of the test reported separately.
--- NOTE | 2023-04-16 08:02 | CA_ITS ---
Transthoracic Echocardiogram Patient (Last, First, Middle): Kaitlin Munguia, Gender: Female Date of : 1955 Age: 67 Procedure Date: 04/16/2023 Procedure Type: Transthoracic Echocardiogram Location: OP Height: 160.02 cm Weight: 57.15 kg BSA: 1.59 m2 Heart Rate: bpm BP: 137 / 84 mmHg Observation Assistant: VIVIANA Referring MD: Ruperto Alarcon MD Vacuum Kettle Cook: Brooks Bustos MD Symptoms: I25.10 - Atherosclerotic heart disease of [place] coronary artery without... Study Quality: Fair ECG Rhythm: Sinus Conclusions: - 1. Normal LV systolic function with LVEF of 60 65% with grade 1 diastolic dysfunction 2. Normal cardiac valvular Doppler 3. Normal RV systolic pressure 4. No gross pericardial effusion Findings Left Ventricle Normal left ventricular size, thickness, and systolic function. The visually estimated ejection fraction is between 60-65%. Spectral Doppler is indicative of an impaired relaxation filling pattern. E/E prime ratio is <8, consistent with normal filling pressures. Peak GLS is -17.8%, borderline normal Right Ventricle Normal right ventricular cavity size and systolic function. Atria Both atria are normal in size. There is no evidence of interatrial shunt. Aortic Valve Normal aortic valve structure and function. There is no aortic valve stenosis. There is no aortic valve regurgitation. Mitral Valve Normal mitral valve structure and function. There is trace mitral valve regurgitation. There is no mitral valve stenosis. Pulmonic Valve The pulmonic valve is likely normal. There is trace pulmonic valve regurgitation. Tricuspid Valve Normal tricuspid valve structure. There is trace tricuspid valve regurgitation. The right ventricular systolic pressure is normal. The right ventricular systolic pressure is 17 mmHg. Normal right atrial pressure. There is no evidence of pulmonary hypertension. Great Vessels The pulmonary artery was not well visualized. There is no dilatation of the ascending aorta measuring 3.00 cm. Small plaque is seen in the sino tubular ridge. Venous The inferior vena cava is normal in size and collapses greater than 50% with inspiration. Pericardium/Pleural There is no evidence of pericardial effusion. Measurements 2D Linear Measurements IVSd: 0.73 0.6-0.9/0.6-1.0 cm LVIDd: 4.15 3.9-5.3/4.2-5.9 cm LVIDd Index: 2.61 2.4-3.2/2.2-3.1 cm/m2 LVIDs: 2.79 2.0-3.6 cm LVPWd: 0.92 0.7-1.1 cm LA Diam: 2.90 2.7-3.8/3.0-4.0 cm LAIDs Index: 1.82 1.5-2.3 cm/m2 LV Mass: 128.06 67-162/88-224 g LV Mass Index: 80.54 43-95/49-115 g/m2 LVOT Diam: 2.00 3.0+(-)1.3 cm 2D Systolic Function EF 4C: 63.20 >55% EF 2C: 58.60 >55% EF BiP: 60.30 >55% Mitral Valve MV Pk E: 0.50 MV PK A: 0.81 MV Decel Time: 195.00 E/A: 0.60 E'Lateral: 7.18 E'Medial: 4.46 E/E' Med: 11.30 E/E' Lat: 7.00 PHT: 57.00 MVA PHT: 3.86 Decel [place]: 2.57 Aortic Valve AoV Pk Piero: 1.36 AoV Mn Piero: 1.01 AoV VTI: 0.32 AoV Pk Grad: 7.00 Aov Mn Grad: 4.00 KOREY Cont.VTI: 2.13 LVOT LVOT Pk Piero: 1.13 LVOT Mn Piero: 0.72 LVOT VTI: 0.22 LVOT Pk Grad: 5.00 LVOT Mn Grad: 2.00 LVOT Diam: 2.00 LVOT Area: 3.14 Diastolic Function MV Pk E: 0.50 MV Pk A: 0.81 E/A: 0.60 E'Medial: 4.46 E/E' Med: 11.30 E' Laterial: 7.18 E/E' Lat: 7.00 Right Ventricle TAPSE (mm): 19.20 TVS' Piero: 10.00 Tricuspid Valve TR Pk Piero: 1.88 TR Pk Grad: 14.00 RA Press: 3.00 RVSP: 17.00 Great Vessels Aorta Sinus of Valsalva: 2.87 2.0-3.[address] [place]: 2.27 1.7-3.4 cm Ao Asc: 3.00 2.1-3.4 cm Updated in Other Vendor System with Status of Final Brooks Bustos MD electronically signed on 04/17/2023 9:19:40 AM with status of Final
--- NOTE | 2023-04-16 08:02 | CA_ITS ---
Acquisition Time: 2023-04-16 08:55:29 Total Exercise Time: 00:12:26 Test Indications: Abnormal ECG CP Medications: SEE H Protocol: DOBUTAMINE Max HR: 129 BPM 84% of Pred: 152 BPM Max BP: 154/088 mmHG Max Work Load: 1.0 METS Pharmacological stress test with Dobutamine infusion max dose of 20 mcg/kg with kicking her legs and moving her arms (dose held due to patient concern over tingling of scalp) achieving 84% MPHR (held 83-84% for apporx 2 min), without SOB, 6/10 genernalized chest discomfort at baseline with resolved in recovery, with isolated PVCs, with normotensive response to infusion, without EKG changes. Nuclear images pending, Test reviewed with Dr. Chen. Referred By: Ruperto Alarcon Overread By: Francesca Mccann
== END ==
LOC: HO.CARD 07:59
PROVIDERS: PCP Internal Medicine Geriatric Medicine; Visit Provider Internal Medicine
DX: R07.89 Other chest pain (principal); I25.10 Atherosclerotic heart disease of native coronary artery without angina pectoris
CPT/HCPCS: 78452; 93017; 93306; 93356; A9500; J1250

== ENCOUNTER → 2023-04-16 08:02 | Outpatient (BNV) | payer OTHER, SELFPAY | PROVIDERS: PCP Internal Medicine Geriatric Medicine; Visit Provider Internal Medicine Cardiovascular Disease | DX: R07.89 Other chest pain (principal); R94.31 Abnormal electrocardiogram [ECG] [EKG] | CPT/HCPCS: 78452; 93016; 93018; 93306 ==

== ENCOUNTER 2023-04-27 09:35 | Outpatient (AMB) | payer OTHER, SELFPAY ==
[2023-04-27 09:44] VITALS: BP 114/74; PULSE 76; BMI 22.6
--- NOTE | 2023-04-27 09:44 | A.OFFVIS_ITS ---
Intake Vital Signs 04/27/23 09:44 Height 5 ft 3 in Weight 127 lb 6.835 oz BMI 22.6 BP 114/74 Blood Pressure Location Lt brachial Position Sitting Pulse 76 Pulse Source Pulse Oximeter Intake Visit Reasons: f/up dobutamine/ echo HS Director Of Entertainment Required: Yes Director Of Entertainment Language: Montenegrin Allergies ciprofloxacin [From Cipro] Allergy (Intermediate, Verified 04/27/23 09:46) HIVES/ITCHING oxycodone [Percocet] Allergy (Intermediate, Verified 04/27/23 09:46) Hives Penicillins Allergy (Intermediate, Verified 04/27/23 09:46) HIVES/ITCHING simvastatin [Simvastatin] Allergy (Intermediate, Verified 04/27/23 09:46) HIVES/ITCHINIG vancomycin [Vancomycin] Allergy (Intermediate, Verified 04/27/23 09:46) HIVES/ITCHING latex Allergy (Mild, Verified 04/27/23 09:46) Rash milnacipran [From Savella] Allergy (Mild, Verified 04/27/23 09:46) Hives Sulfa (Sulfonamide Antibiotics) Allergy (Mild, Verified 04/27/23 09:46) Shortness of Breath dupilumab [From Dupixent Pen] Adverse Reaction (Intermediate, Verified 04/27/23 09:46) neuropathy Medication List - Last Reconciled 04/27/23 by SHANE Huber albuterol sulfate 90 mcg/actuation 2 puffs PO Q4H PRN albuterol sulfate 2.5 mg (3 mL) inhalation Q6H PRN 30 days amitriptyline 50 mg PO BEDTIME amlodipine 10 mg PO DAILY azelastine 2 sprays intranasal BID blood pressure test kit-large As directed cholecalciferol (vitamin D3) 1 tab PO DAILY cyclobenzaprine 5 mg PO BEDTIME PRN diclofenac potassium 50 mg PO BID PRN dicyclomine 10 mg PO TID ezetimibe 10 mg PO DAILY fexofenadine 180 mg PO DAILY fluoxetine 20 mg PO DAILY fluticasone propionate 50 mcg/actuation 2 sprays intranasal DAILY hydrochlorothiazide 1 cap PO DAILY hydrocortisone acetate (Anusol-HC) 25 mg FL BID inhalational spacing device (Aerochamber MV spacer) As directed ketotifen fumarate 0.025%(0.035%) 1 drp ophthalmic (eye) BID PRN levalbuterol HCl (Xopenex) 1.25 mg (3 mL) inhalation Q6H PRN 30 days levalbuterol tartrate 45 mcg/actuation 2 puffs inhalation Q4H PRN lorazepam 1 tab PO BID menthol-zinc oxide 0.44-20.6 % (Calmoseptine) 1 appl topical QID PRN mometasone-formoterol 200-5 mcg/actuation (Dulera) 2 puffs inhalation BID 30 days montelukast 10 mg PO DAILY omeprazole mg PO QAM pravastatin 20 mg PO DAILY sucralfate 10 mL PO BID sumatriptan succinate (Imitrex) 50 mg PO Q2-4H PRN tezepelumab-ekko (Tezspire) 210 mg (1.91 mL) subcut Q4W 12 months tiotropium bromide 1.25 mcg/actuation (Spiriva Respimat) 2 puffs inhalation DAILY 30 days triamcinolone acetonide 0.1% 1 appl topical BID 30 days valsartan 80 mg PO DAILY zinc sulfate 50 mg PO DAILY HPI f/up dobutamine/ echo HS HPI Details Kaitlin is a 67-year-old female with past medical history of asthma, hypertension, prior abnormal EKG in the setting of uncontrolled hypertension, DVT who presents for follow-up after recent echocardiogram and stress test. Today she reports that she has been feeling well. Her asthma is currently well controlled. Occasionally she will feel some tightness in her chest which she relates to the asthma. No other chest discomfort. No palpitations, lightheadedness, presyncope, syncope, PND, orthopnea or edema. She has been taking her meds as directed. 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 Patient mostly speaking Ukrainian with building coordinator present. [facility] Medical History Abnormal electrocardiogram [ECG] [EKG] Chest pain Bleeding hemorrhoids Eczema VERA positive DVT (deep venous thrombosis) Tachycardia Dyspnea Sinusitis Rash URI (upper respiratory infection) History of anesthesia problem Osteoarthritis Fibromyalgia GERD (gastroesophageal reflux disease) Cervicalgia Depression History of vertigo Varicose vein of leg Chronic pain of left knee Allergic rhinitis Anxiety Asthma Migraine Surgical History History of esophagogastroduodenoscopy (EGD) History of repair of right rotator cuff Hx of bilateral breast reduction surgery Hx of hemorrhoidectomy H/O varicose vein ligation and stripping Hx of colonoscopy Hx of hysterectomy Hx of appendectomy Hx laparoscopic cholecystectomy Status post right rotator cuff repair Family History Father No problems noted. Mother Family history of high blood pressure Dementia Social History Household Members: None Alcohol intake: never Patient Tobacco Use Status: Never used Tobacco Advance Directives Date on File: 04/03/18 Current occupational status: unemployed Current occupation: Left Handed Review of Systems Const All systems reviewed & are unremarkable except as noted in HPI and below ENT Denies dizziness Card Denies chest pain, Denies chest pain at rest, Denies chest pain with activity, Denies rapid heart rate, Denies pedal edema, Denies edema, Denies leg edema, Denies lightheadedness, Denies palpitations, Denies dyspnea, Denies dyspnea on exertion and Denies orthopnea Resp Denies cough, Denies dyspnea and Denies dyspnea on exertion GI Denies hematochezia and Denies change in stool character Musc Denies abnormal gait, Denies limited range of motion, Denies muscle cramps, Denies muscle weakness, Denies numbness, Denies radiating pain into limb, Denies stiffness and Denies tingling Neuro Denies abnormal gait, Denies dizziness, Denies numbness and Denies tingling Endo Denies palpitations Physical Exam Vital Signs: Last Vital Signs Pulse 76 04/27/23 09:44 BP 114/74 04/27/23 09:44 BMI result Body Mass Index 22.6 Const General: cooperative, healthy appearing, comfortable and no acute distress Orientation/consciousness: patient oriented x3 Neck Neck: Yes normal visual inspection and Yes no JVD Resp Effort & Inspection: normal respiratory effort Auscultation: clear to auscultation bilaterally, no crackles, no rales, no rhonchi and no wheezes Cardio Jugular venous distension: no JVD Rate: regular rate Rhythm: regular rhythm Heart sounds: S1 normal heart sound present, S2 normal heart sound present, no murmurs and no rubs Neuro General: patient oriented x3 Extrem General: Yes normal to inspection and No no pedal edema Psych Appearance: grossly normal Mental Status: mental status grossly normal Speech and movement: Normal speech and movement present Assessment & Plan Assessment & Plan (1) Chest tightness: Code(s): R07.89 - Other chest pain Plan: Reports of intermittent chest tightness that she relates to an asthma sensation. EKG done 04/24/2022 in the setting migraine headache and elevated blood pressure readings showed ST abnormalities in the anterior and lateral leads. She has no cardiac history. Cardiac risk factors of age, hypertension, hyperlipidemia. A dobutamine nuclear stress test was done on 04/22/2023 showing normal myocardial perfusion imaging. Echocardiogram done 04/16/2023 showed EF 60-65%, grade 1 diastolic dysfunction, no valve abnormalities. Test results reviewed with her in detail. EKG abnormalities were likely related to cardiac strain in the setting of hypertension. The importance of good blood pressure control reviewed. Blood pressure is good at this time. No med changes made. Cardiology follow-up in 6 months, sooner if needed (2) Abnormal electrocardiogram [ECG] [EKG]: Code(s): R94.31 - Abnormal electrocardiogram [ECG] [EKG] Plan: As above (3) Asthma: Code(s): J45.909 - Unspecified asthma, uncomplicated Qualifiers: Asthma complication type: uncomplicated Asthma persistence: persistent Asthma severity: severe Qualified Code(s): J45.50 - Severe persistent asthma, uncomplicated Plan: As above (4) Preop cardiovascular exam: Code(s): Z01.810 - Encounter for preprocedural cardiovascular examination Plan: Preop for upper endoscopy. Recent cardiac testing shows no acute cardiac abnormalities. She is on amlodipine, valsartan and hydrochlorothiazide for good blood pressure control. Blood pressure today 114/74. Continue on current med management. She can undergo endoscopy with low cardiac risk. Call/consult Cardiology if needed Plan Time spent on chart review, documentation, interview and assessment Coding Level of Care Code Est Pt Level 3 (59896) Diagnoses Chest tightness R07.89 Abnormal electrocardiogram [ECG] [EKG] R94.31 Severe persistent asthma without complication J45.50 Asthma complication type: uncomplicated Asthma persistence: persistent Asthma severity: severe Preop cardiovascular exam Z01.810 Time Spent (min) 24
== END 2023-04-27 10:12 | disposition home or self-care (01) ==
PROVIDERS: PCP Internal Medicine Geriatric Medicine; Visit Provider Nurse Practitioner Family
DX: R07.89 Other chest pain (principal); R94.31 Abnormal electrocardiogram [ECG] [EKG]; J45.50 Severe persistent asthma, uncomplicated; Z01.810 Encounter for preprocedural cardiovascular examination
CPT/HCPCS: 99213

== ENCOUNTER → 2023-04-27 09:35 | Outpatient (BNVA) | payer OTHER, SELFPAY | PROVIDERS: PCP Internal Medicine Geriatric Medicine; Visit Provider Nurse Practitioner Family | DX: Z01.810 Encounter for preprocedural cardiovascular examination (principal); R07.89 Other chest pain; R94.31 Abnormal electrocardiogram [ECG] [EKG]; J45.50 Severe persistent asthma, uncomplicated | CPT/HCPCS: 99212 ==

== ENCOUNTER 2023-05-01 10:25 | Outpatient (REF) | payer OTHER, SELFPAY ==
--- NOTE | ~2023-05-01 | XR_ITS ---
EXAMINATION: XR CHEST CLINICAL INFORMATION: Unspecified asthma. COMPARISON: Chest of 01/07/2021, 03/17/2018. TECHNIQUE: 2 views of the chest were obtained. FINDINGS: The lungs are well inflated. Redemonstration of biapical pleural thickening. Heart size upper limits of normal. Redemonstration of radiopaque anchors overlying the humeral head and possibly right scapula. Surgical clips in the right upper quadrant of the abdomen. Possible 5 mm nodule overlying the posterior aspect of the right fourth rib, possibly representing a pulmonary nodule versus bony lesion. XR/XR chest 2V IMPRESSION: Possible 5 mm nodule overlying the posterior aspect of the right fourth rib, possibly representing a pulmonary nodule versus bony lesion. CT scan of the chest without intravenous contrast recommended for further evaluation. This study was presented today May 04, 2023 for interpretation. PSA staff will provide results to referring provider at this time.
== END 2023-05-01 10:26 | disposition home or self-care (01) ==
LOC: HO.XRAY 10:25
PROVIDERS: PCP Internal Medicine Geriatric Medicine; Visit Provider Hospitalist
DX: R07.9 Chest pain, unspecified (principal); R94.31 Abnormal electrocardiogram [ECG] [EKG]; J45.909 Unspecified asthma, uncomplicated
CPT/HCPCS: 71046; 99212

== ENCOUNTER 2023-05-01 10:25 | Outpatient (AMB) | payer OTHER, SELFPAY ==
[2023-05-01 10:36] VITALS: PULSE 88; O2SAT 98; BMI 22.6
--- NOTE | 2023-05-01 10:36 | A.OFFVIS_ITS ---
Intake Vital Signs 05/01/23 10:36 Height 5 ft 3 in Weight 127 lb 6.835 oz BMI 22.6 Pulse 88 Pulse Source Pulse Oximeter Pulse Oximetry (%) 98 Oxygen Delivery Method Room Air Intake Visit Reasons: copd Principle Software Engineer Required: No Allergies ciprofloxacin [From Cipro] Allergy (Intermediate, Verified 05/01/23 10:37) HIVES/ITCHING oxycodone [Percocet] Allergy (Intermediate, Verified 05/01/23 10:37) Hives Penicillins Allergy (Intermediate, Verified 05/01/23 10:37) HIVES/ITCHING simvastatin [Simvastatin] Allergy (Intermediate, Verified 05/01/23 10:37) HIVES/ITCHINIG vancomycin [Vancomycin] Allergy (Intermediate, Verified 05/01/23 10:37) HIVES/ITCHING latex Allergy (Mild, Verified 05/01/23 10:37) Rash milnacipran [From Savella] Allergy (Mild, Verified 05/01/23 10:37) Hives Sulfa (Sulfonamide Antibiotics) Allergy (Mild, Verified 05/01/23 10:37) Shortness of Breath dupilumab [From Dupixent Pen] Adverse Reaction (Intermediate, Verified 05/01/23 10:37) neuropathy HPI HPI Comments History of Present Illness Details The patient is a 67-year-old woman known allergic rhinitis and severe persistent asthma. She has been using her respiratory therapy. Still having significant shortness of breath because she has been exposed to significant smoke and fumes from her upstairs neighbor. She is very the 94 hold also lives in the same environment and also has been getting worsening respiratory symptoms. She will talk to the now alert and also I gave her a number of an asthma association that may be able to help her. Continues to have wheezing at times. She is waking up more often. Also having more coughing. She has been more congested. She has been getting allergy medications from bean picker. He will bring maximizing her respiratory therapy. She has tried certain biologic therapies with her bean picker. She had a bad reaction to Xolair I am not sure if she try Dupixent or interlukin 5 inhibitors yet. The patient has severe persistent asthma with significant wheezing right now on examination. She has been using the Dupixent injections every 2 weeks with very good effect. She continues on respiratory therapy. She has not required any prednisone which is been great. It also has been helping her chronic rhinitis. In the meantime she is dealing with issues with abdominal pain and reflux. She was evaluated by GI and appears to be have some peptic ulcer disease and H pylori. Therefore she was started on therapy although difficult for her to tolerate. Now she is planned to have an endoscopy which should be reassuring. In the meantime she needs to continue with the reflux diet and she also understands the acid reflux can exacerbate her respiratory issues. 11/22/2020 the patient is here for alvaro wang follow-up visit. Since we last spoke she took her Dupixent about a week ago. She was feeling excellent prior to taking it. Her breathing was good in her neuropathy and paresthesias was also resolved. She decided to rechallenge herself taking Dupixent. She started developing afterwards some chest tightness and chest congestion. She also complained of I congestion and sinus congestion. In addition to that noted complaining worsening burning sensation of the lower extremity. Her symptoms are moderate to severe. I will give her Solu-Medrol today to help her easily the symptoms. In the meantime she has felt some ectopy. She is also developing issues with blood pressure. She needs to be seen by her primary care doctor. She does have an appointment next week which is reassuring. She went to the ER once or twice because of labile blood pressure. 01/29/2021 the patient is here for a festus medina follow-up visit. The patient overall has been doing well. She has been off that the picks and now for many months. She has not noticed any significant worsening of her breathing. At this point after her bad reaction to it she wants to stay away from biologics. She continues on the Dulera and also using Spiriva. She does have a rescue inhaler. She has required prednisone 1 since we last time we met back in October. Usually hall the top months for her. She will call if any issues arise. At this time we did go over her inhalers. She felt she did better on Advair. But, I suggest she stands Dulera because it feels stronger medication for her. However I will add a spacer in order for her to have a more effective falling of distribution. We did talk a vaccines. The patient does not want to get a flu shot. I did recommend she at least get the Prevnar 13 vaccine. She will consider it and will discuss it further during the next visit in 6 months. 08/30/2021 the patient is here for a pulmonary follow-up visit. She continues to struggle with her nasal congestion from her allergies and also her asthma. She did require recent prednisone taper because of her symptoms. Now that she is concerned that now she is off the prednisone her symptoms have been worsening. Mainly the nasal congestion. She tried biologics in the past in the form of Dupixent which significantly helped her, but, resulted in adverse effects. She also tried and failied Xolair. At this point she would like to hold off all biologics because of that. Her IgE in her eosinophil level was also not significantly elevated. The patient may be a good candidate for further biologic therapy in the future including Tezspire. in the meantime she is maximizing her respiratory therapy. She is also maximized on her allergy medicine. Another option for her Daliresp. However she does not have significant weight to lose. She lost a lot of weight while dealing with C diff infection. She is taking probiotics right now on were avoiding all source of an tibiotics at this time. 03/07/2022 the patient is here for pulmona ry follow-up visit. She continues to have her significant asthma symptoms and also nasal congestion. Moderate severity. She continues to be on chronic prednisone because of the severity of her symptoms. She also continues with respiratory therapy. Based on her steroid dependent asthma the patient it is more agreeable to considering a different biologic regimen. Again she already tried Xolair in Dupixent. Although Dupixent was helpful initially the patient then became symptomatic with significant neuropathy and had to stop it. The patient is agreeable to looking into starting Tezspire. at this point the patient is having significant wheezing on examination and will require additional prednisone. Will also start the p rocess for the biologic regimen. 05/01/2023 the patient is here for pulmonary follow-up visit. Overall the patient has been doing well from a respiratory status. Although typically her asthma worsened springtime. The patient will be maximize her respiratory therapy by increasing the Spiriva to the maximum dose. She is already using the Dulera twice a day. She also requires her rescue inhaler about twice a week. The patient did have a full cardiac workup which was reassuring. She has not had a chest x-ray now in couple years. Will go ahead and repeat her chest x-ray at this time. If his abnormal call her and will follow-up with any additional testing in the case. We did talk about biologics. The patient still is reluctant to use any biologics specially with a bad reaction to the Dupixent and also has had bad reactions to other medications. Therefore will continue to monitor her closely during the springtime if she has any issues she will call the office for an earlier assessment. Otherwise will follow-up in 4-6 months. [facility] Medical History Abnormal electrocardiogram [ECG] [EKG] Chest pain Bleeding hemorrhoids Eczema VERA positive DVT (deep venous thrombosis) Tachycardia Dyspnea Sinusitis Rash URI (upper respiratory infection) History of anesthesia problem Osteoarthritis Fibromyalgia GERD (gastroesophageal reflux disease) Cervicalgia Depression History of vertigo Varicose vein of leg Chronic pain of left knee Allergic rhinitis Anxiety Asthma Migraine Surgical History History of esophagogastroduodenoscopy (EGD) History of repair of right rotator cuff Hx of bilateral breast reduction surgery Hx of hemorrhoidectomy H/O varicose vein ligation and stripping Hx of colonoscopy Hx of hysterectomy Hx of appendectomy Hx laparoscopic cholecystectomy Status post right rotator cuff repair Family History Father No problems noted. Mother Family history of high blood pressure Dementia Social History Household Members: None Alcohol intake: never Patient Tobacco Use Status: Never used Tobacco Advance Directives Date on File: 04/03/18 Current occupational status: unemployed Current occupation: Left Handed Review of Systems Const Reports headache(s), Denies night sweats and Reports weight loss ENT Denies change in voice, Reports headache(s), Denies lip swelling, Denies mouth pain, Reports nasal congestion, Reports nasal discharge, Reports nasal obstruction, Reports post nasal drip and Denies tongue swelling Card Reports chest pain and Denies dyspnea Resp Denies chest congestion, Reports cough, Denies dyspnea and Reports wheezing GI Denies abdominal pain, Denies diarrhea and Denies loose stools Musc Denies no additional complaints Neuro Denies Neuro-related abnormal movements, Denies burning sensations, Reports headache(s) and Denies paresthesias Psych Denies no additional complaints Shabbir/Lymph Denies easy bleeding and Denies lymphadenopathy Aller/Immun Denies lip swelling, Denies tongue swelling and Reports wheezing Physical Exam Vital Signs: Last Vital Signs Pulse 88 05/01/23 10:36 Pulse Ox 98 05/01/23 10:36 Oxygen Delivery Method Room Air 05/01/23 10:36 BMI result Body Mass Index 22.6 Const General: cooperative, healthy appearing and comfortable Orientation/consciousness: oriented to person, oriented to place and oriented to time Neck Carotids: no bruits Chest Chest palpation & inspection: normal inspection of the chest and normal palpation of entire chest wall Resp Effort & Inspection: normal respiratory effort Auscultation: no wheezes and diminished lung sounds Cardio Rate: regular rate Heart sounds: S1 normal heart sound present and S2 normal heart sound present Peripheral pulses: Peripheral pulses 2+ throughout GI Inspection: Yes normal to inspection Skin Other: +2 edema, large rope-like varicosities greater than 3 mm CEAP Classification C4 - skin color changes Ep - Etiology Primary As - superficial veins P - reflux General skin exam: dry skin Neuro General: oriented to person, oriented to place and oriented to time Extrem Right lower extremity: full ROM, normal capillary refill and edema Left lower extremity: full ROM, normal capillary refill and edema Psych Mental Status: mental status grossly normal Assessment & Plan Assessment & Plan (1) Asthma: Code(s): J45.909 - Unspecified asthma, uncomplicated Qualifiers: Asthma complication type: uncomplicated Asthma persistence: persistent Asthma severity: severe Qualified Code(s): J45.50 - Severe persistent asthma, uncomplicated (2) Allergic reaction: Code(s): T78.40XA - Allergy, unspecified, initial encounter Qualifiers: Encounter type: initial encounter Qualified Code(s): T78.40XA - Allergy, unspecified, initial encounter (3) GERD (gastroesophageal reflux disease): Code(s): K21.9 - Gastro-esophageal reflux disease without esophagitis Qualifiers: Esophagitis bleeding: without hemorrhage Esophagitis presence: with esophagitis Qualified Code(s): K21.00 - Gastro-esophageal reflux disease with esophagitis, without bleeding (4) Eczema: Code(s): L30.9 - Dermatitis, unspecified Qualifiers: Eczema type: intrinsic Qualified Code(s): L20.84 - Intrinsic (allergic) eczema Plan Continue Dulera increase Spiriva 1.25->2.5 BRENDA as needed CXR Continue nebulizer therapy consider tezspire Reflux diet Nasal rinsing consider sleep study Follow-up 6 months Orders: Orders XR chest 2V 05/01/23 J45.909 - Unspecified asthma, uncomplicated Medications: New tiotropium bromide 2.5 mcg/actuation (Spiriva Respimat) 2 puffs inhalation DAILY 30 days 1 ea 11RF Discontinued tiotropium bromide 1.25 mcg/actuation (Spiriva Respimat) Discontinued Reason: Doctor's Order 2 puffs inhalation DAILY 30 days 4 grams 11RF Coding Level of Care Code Est Pt Level 4 (04464) Diagnoses Severe persistent asthma without complication J45.50 Asthma complication type: uncomplicated Asthma persistence: persistent Asthma severity: severe Allergic reaction, initial encounter T78.40XA Encounter type: initial encounter Gastroesophageal reflux disease with esophagitis without hemorrhage K21.00 Esophagitis bleeding: without hemorrhage Esophagitis presence: with esophagitis Intrinsic eczema L20.84 Eczema type: intrinsic Time Spent (min) 17
== END 2023-05-01 10:54 | disposition home or self-care (01) ==
PROVIDERS: PCP Internal Medicine Geriatric Medicine; Visit Provider Hospitalist
DX: J45.50 Severe persistent asthma, uncomplicated (principal); T78.40XA Allergy, unspecified, initial encounter; K21.00 Gastro-esophageal reflux disease with esophagitis, without bleeding; L20.84 Intrinsic (allergic) eczema
CPT/HCPCS: 99214

== ENCOUNTER 2023-05-08 07:49 | Outpatient (REF) | payer OTHER, SELFPAY ==
[2023-05-08 08:36] LABS: Anion Gap 10 (12-20); Blood Urea Nitrogen 14 mg/dL (9-16); Calcium 9.6 mg/dL (8.4-10.2); Carbon Dioxide 31 mmol/L (22-29); Chloride 107 mmol/L (96-108); Estimated Glomerular Filt Rate > 60; Glucose Random 92 mg/dL (60-115); Potassium 3.8 mmol/L (3.3-5.1); Sodium 144 mmol/L (135-145)
[2023-05-12 00:19] LABS: Zinc 72 mcg/dL (60-130)
== END 2023-05-08 07:50 | disposition home or self-care (01) ==
LOC: HO.LAB 07:49
PROVIDERS: PCP Internal Medicine Geriatric Medicine; Visit Provider Internal Medicine Geriatric Medicine
DX: I10 Essential (primary) hypertension (principal); E60 Dietary zinc deficiency
CPT/HCPCS: 36415; 80048; 84630

== ENCOUNTER 2023-05-29 10:54 | Outpatient (AMB) | payer OTHER, SELFPAY ==
--- NOTE | 2023-05-29 11:09 | A.OFFVIS_ITS ---
Intake Vital Signs 05/29/23 11:19 Height 5 ft 3 in Weight 127 lb 13.89 oz BMI 22.6 BP 140/71 H Blood Pressure Location Lt brachial Position Sitting Pulse 83 Intake Visit Reasons: 3 month follow up Intake Note: Kaitlin presents in the office as a 3 month follow up. CC: She states that she is due for a colonoscopy but she had to have tests done first. Air Conditioning Engineer Required: No Allergies ciprofloxacin [From Cipro] Allergy (Intermediate, Verified 05/29/23 11:22) HIVES/ITCHING oxycodone [Percocet] Allergy (Intermediate, Verified 05/29/23 11:22) Hives Penicillins Allergy (Intermediate, Verified 05/29/23 11:22) HIVES/ITCHING simvastatin [Simvastatin] Allergy (Intermediate, Verified 05/29/23 11:22) HIVES/ITCHINIG vancomycin [Vancomycin] Allergy (Intermediate, Verified 05/29/23 11:22) HIVES/ITCHING latex Allergy (Mild, Verified 05/29/23 11:22) Rash milnacipran [From Savella] Allergy (Mild, Verified 05/29/23 11:22) Hives Sulfa (Sulfonamide Antibiotics) Allergy (Mild, Verified 05/29/23 11:22) Shortness of Breath dupilumab [From Dupixent Pen] Adverse Reaction (Intermediate, Verified 05/29/23 11:22) neuropathy HPI 3 month follow up HPI Details 67 yr old f w hx of cholecystectomy, her e for f/u RECAP[place] [facility] [place] She says she has a bacteria in her stomach ? h pylori. Significant bloating she could not eat. She had taken clarithromycin and Flagyl for 3- 4 days and began with nausea and vomiting. She finally had gone to the ED, Antibiotoic therapy discontinued despite GB taken out 1 yr ago she has simialr sx Her appetite is not great however she is not had any further vomiting, however continues with intermittent nausea, bloating and reflux though she discontinued omeprazole as well. She has very unstable BP- always in the ED. She is allergic to every antibiotic as well as anesthesia. Her daughter says that she needs to have monitoring whenever she is given any of the above. Her daughter was extremely concerned taking medications She did have a an abdominal ultrasound 08/08/19--fatty liver, otherwise ok LABS 08/2019--nml BMP, LFT< CBC, microcytosis EGD/colonoscopy--01/2020---patchy erythema, nml colon, bx with h pylori she was given quadruple therapy for h pylori subsequent H pylori breath test 04/2020---Negative, repeat H pylori 10/2021-- negATIVE GES--normal I also gave her linaclotide for constipation thought to be due to her medications she had BENITES and manometry at [facility] 04/2021--pos Demeeester, normal manometry IMAGING: CT 12/2019--- mild constipation, no acute findings US 2021- normal apart from mild aortic atherosclerosis US 10/2022--- aortic plaque seen, otherwise no acute findings She did have stool pos for norvovirus 09/2022 she also had fecal fat but nml panc elastase INTERIM: she has ongoing sx with RUQ pain--post prandial with diarrhea and GERD no blood in the stool she has nausea occ constipation EXAM: GENERAL: The patient is well developed and nontoxic. VITAL SIGNS:see workflow HEENT: Nonicteric sclerae, PERRLA, EOMI. Oropharynx clear. Moist mucous membranes. Conjunctivae appear well perfused. No thyroid mass. CHEST: Chest wall is nontender. HEART: Regular rate and rhythm without murmurs. LUNGS: Clear to auscultation bilaterally. ABDOMEN: Soft, positive bowel sounds, tender RUQ, no organomegaly. SKIN: No rash, no excessive bruising, petechiae, or purpura. NEUROLOGIC: Cranial nerves II-XII intact without motor/sensory deficit. psych--nml Assessment & Plan 1/ RUQ pain, ? retained stone, referred pain from spine, PLAN: 1/ MRCP---open scanner 2/ if neg then EGD and doppler and maybe repeat fecal fat, posisbly [facility] Medical History Abnormal electrocardiogram [ECG] [EKG] Chest pain Bleeding hemorrhoids Eczema VERA positive DVT (deep venous thrombosis) Tachycardia Dyspnea Sinusitis Rash URI (upper respiratory infection) History of anesthesia problem Osteoarthritis Fibromyalgia GERD (gastroesophageal reflux disease) Cervicalgia Depression History of vertigo Varicose vein of leg Chronic pain of left knee Allergic rhinitis Anxiety Asthma Migraine Surgical History History of esophagogastroduodenoscopy (EGD) History of repair of right rotator cuff Hx of bilateral breast reduction surgery Hx of hemorrhoidectomy H/O varicose vein ligation and stripping Hx of colonoscopy Hx of hysterectomy Hx of appendectomy Hx laparoscopic cholecystectomy Status post right rotator cuff repair Family History Father No problems noted. Mother Family history of high blood pressure Dementia Social History Household Members: None Alcohol intake: never Patient Tobacco Use Status: Never used Tobacco Advance Directives Date on File: 04/03/18 Current occupational status: unemployed Current occupation: Left Handed Physical Exam Vital Signs: Last Vital Signs Pulse 83 05/29/23 11:19 BP 140/71 H 05/29/23 11:19 BMI result Body Mass Index 22.6 Assessment & Plan Assessment & Plan (1) RUQ pain: Code(s): R10.11 - Right upper quadrant pain Plan: see above Orders: Orders MR abdomen wo con Today R10.11 - Right upper quadrant pain Coding Level of Care Code Est Pt Level 3 (50537) Diagnoses RUQ pain R10.11
[2023-05-29 11:19] VITALS: BP 140/71; PULSE 83; BMI 22.6
== END 2023-05-29 12:51 | disposition home or self-care (01) ==
PROVIDERS: PCP Internal Medicine Geriatric Medicine; Visit Provider Internal Medicine Gastroenterology
DX: R10.11 Right upper quadrant pain (principal)
CPT/HCPCS: 99213

== ENCOUNTER → 2023-05-29 10:54 | Outpatient (BNVA) | payer OTHER, SELFPAY | PROVIDERS: PCP Internal Medicine Geriatric Medicine; Visit Provider Internal Medicine Gastroenterology | DX: R10.11 Right upper quadrant pain (principal) | CPT/HCPCS: 99212 ==

== ENCOUNTER 2023-06-04 06:51 | Outpatient (REF) | payer OTHER, SELFPAY ==
--- NOTE | ~2023-06-04 | CT_ITS ---
EXAMINATION: CT CHEST WITHOUT CONTRAST CLINICAL INFORMATION: Abnormal findings on diagnostic imaging of other specified body part. COMPARISON: Previous chest x-ray May 01, 2023. TECHNIQUE: Multidetector volumetric CT imaging of the chest was done. Axial MIP volume rendering provided. Sagittal and coronal reformatted images were obtained. This CT examination was performed using dose optimization techniques as appropriate, variously including the following: *Automated exposure control *Adjustment of mA and/or kV according to patient size (this includes techniques or standardized protocols for targeted exams where dose is matched to indication/reason for exam; i.e. extremities or head) *Use of iterative reconstruction technique DLP: 102 mGy-cm FINDINGS: LUNGS: There is biapical pleural and parenchymal scarring. There is a deeper 5 mm right apical nodule axial image 91 series 5, left upper lobe nodule axial image 102 series 5, and 2 mm peripheral or subpleural right upper lobe nodule axial image 133 series 5. These may be related to pleural and parenchymal scarring as well. Scattered areas of clustered peribronchial nodules and increased peribronchial attenuation or tree-in-bud appearance suggestive of airways disease, for example in the right lower lobe axial image 385 series 5. Slight heterogeneous mosaic attenuation, probably related to hypoventilatory changes from air trapping. This is greatest at the lung bases. Mild scattered areas of subsegmental atelectasis. MEDIASTINUM: Normal heart size. No pericardial effusion. No enlarged hilar or mediastinal lymph nodes. Small left lobe of the thyroid gland. Normal caliber thoracic aorta. CORONARY ARTERY CALCIFICATION: Moderate. PLEURA: There is no pleural effusion. No pleural mass or thickening. AXILLA: Small bilateral axillary lymph nodes. No enlarged lymph nodes or chest wall mass. UPPER ABDOMEN: Gallbladder has been removed. Stable linear calcification in the body of the pancreas. OSSEOUS STRUCTURES: Mild degenerative changes of the spine. Probable T12 hemangioma. CT/CT chest wo IV con IMPRESSION: Biapical pleural and parenchymal scarring. There are several deeper bilateral upper lobe nodules that may be related to pleural and parenchymal scarring as well. Mosaic attenuation at the lung bases probably representing hypoventilatory changes from air trapping and mild tree-in-bud appearance suggestive of airways disease. According to the UPDATED 2017 Fleischner Society recommendations, the advised follow-up imaging for less than 6 mm solid nodule: Low risk, no chest CTs follow-up and high risk, optional chest CT follow-up in one year. Fleischner guidelines were followed.
== END 2023-06-04 06:52 | disposition home or self-care (01) ==
LOC: HO.CT 06:51
PROVIDERS: PCP Internal Medicine Geriatric Medicine; Visit Provider Hospitalist
DX: R07.9 Chest pain, unspecified (principal); R93.89 Abnormal findings on diagnostic imaging of other specified body structures
CPT/HCPCS: 71250

== ENCOUNTER 2023-06-11 11:54 | Outpatient (REF) | payer OTHER, SELFPAY ==
--- NOTE | ~2023-06-11 | MM_ITS ---
EXAMINATION: MM SCREENING DIGITAL BREAST TOMOSYNTHESIS, BILATERAL CLINICAL INFORMATION: Screening. Asymptomatic. The patient is status post bilateral breast reduction. COMPARISON: Mammography: This study is compared with prior exams dating back to 2018. TECHNIQUE: Digital breast tomosynthesis is performed in both the craniocaudal and mediolateral oblique views along with computer-aided detection (CAD). Synthesized 2D images are generated from the tomosynthesis. FINDINGS: There are scattered areas of fibroglandular density (ACR BI-RADS breast composition Category b). There are no significant masses, abnormal calcifications, or other abnormalities. Post reduction changes are present. MM/MM tomosynthesis screening BI IMPRESSION: No mammographic evidence of malignancy. ASSESSMENT: BI-RADS BI-RADS 2 - Benign Findings RECOMMENDATION: Routine annual mammography screening. 1 year F/U This examination should not preclude the clinical evaluation of a suspicious palpable abnormality. This patient's information was entered into a reminder system with a target due date for their next mammogram.
== END 2023-06-11 11:55 | disposition home or self-care (01) ==
LOC: HO.MAMMO 11:54
PROVIDERS: PCP Internal Medicine Geriatric Medicine; Visit Provider Internal Medicine Geriatric Medicine
DX: Z12.31 Encounter for screening mammogram for malignant neoplasm of breast (principal)
CPT/HCPCS: 77063; 77067

== ENCOUNTER → 2023-06-11 12:15 | Outpatient (BNV) | payer OTHER, SELFPAY | PROVIDERS: PCP Internal Medicine Geriatric Medicine; Visit Provider Radiology Diagnostic Radiology | DX: Z12.31 Encounter for screening mammogram for malignant neoplasm of breast (principal) | CPT/HCPCS: 77063; 77067 ==

== ENCOUNTER 2023-07-06 10:55 | Outpatient (AMB) | payer OTHER, SELFPAY ==
[2023-07-06 11:00] VITALS: BP 110/60; PULSE 89; O2SAT 97; BMI 22.6
--- NOTE | 2023-07-06 11:00 | A.OFFVIS_ITS ---
Vital Signs 07/06/23 11:00 Height 5 ft 3 in Weight 127 lb 13.89 oz BMI 22.6 BP 110/60 Blood Pressure Location Lt brachial Position Sitting Pulse 89 Pulse Source Pulse Oximeter Pulse Oximetry (%) 97 Oxygen Delivery Method Room Air Intake Visit Reasons: asthma exacerbation Cloth Shrinker Required: No Allergies ciprofloxacin [From Cipro] Allergy (Intermediate, Verified 07/06/23 11:03) HIVES/ITCHING oxycodone [Percocet] Allergy (Intermediate, Verified 07/06/23 11:03) Hives Penicillins Allergy (Intermediate, Verified 07/06/23 11:03) HIVES/ITCHING simvastatin [Simvastatin] Allergy (Intermediate, Verified 07/06/23 11:03) HIVES/ITCHINIG vancomycin [Vancomycin] Allergy (Intermediate, Verified 07/06/23 11:03) HIVES/ITCHING latex Allergy (Mild, Verified 07/06/23 11:03) Rash milnacipran [From Savella] Allergy (Mild, Verified 07/06/23 11:03) Hives Sulfa (Sulfonamide Antibiotics) Allergy (Mild, Verified 07/06/23 11:03) Shortness of Breath dupilumab [From Dupixent Pen] Adverse Reaction (Intermediate, Verified 07/06/23 11:03) neuropathy HPI Comments Details: The patient is a 68-year-old woman known allergic rhinitis and severe persistent asthma. She has been using her respiratory therapy. Still having significant shortness of breath because she has been exposed to significant smoke and fumes from her upstairs neighbor. She is very the 94 hold also lives in the same environment and also has been getting worsening respiratory symptoms. She will talk to the now alert and also I gave her a number of an asthma association that may be able to help her. Continues to have wheezing at times. She is waking up more often. Also having more coughing. She has been more congested. She has been getting allergy medications from section cutter. He will bring maximizing her respiratory therapy. She has tried certain biologic therapies with her section cutter. She had a bad reaction to Xolair I am not sure if she try Dupixent or interlukin 5 inhibitors yet. The patient has severe persistent asthma with significant wheezing right now on examination. She has been using the Dupixent injections every 2 weeks with very good effect. She continues on respiratory therapy. She has not required any prednisone which is been great. It also has been helping her chronic rhinitis. In the meantime she is dealing with issues with abdominal pain and reflux. She was evaluated by GI and appears to be have some peptic ulcer disease and H pylori. Therefore she was started on therapy although difficult for her to tolerate. Now she is planned to have an endoscopy which should be reassuring. In the meantime she needs to continue with the reflux diet and she also understands the acid reflux can exacerbate her resp iratory issues. 03/07/2022 the patient is here for pulmonary follow-up visit. She continues to have her significant asthma symptoms and also nasal congestion. Moderate severity. She continues to be on chronic prednisone because of the severity of her symptoms. She also continues with respiratory therapy. Based on her steroid dependent asthma the patient it is more agreeable to considering a di fferent biologic regimen. Again she already tried Xolair in Dupixent. Although Dupixent was helpful initially the patient then became symptomatic with significant neuropathy and had to stop it. The patient is agreeable to looking into starting Tezspire. at this point the patient is having significant wheezing on examination and will require additional prednisone. Will also start the process for the biologic regimen. 05/01/2023 the patient is here for pulmonary follow-up visit. Overall the patient has been doing well from a respiratory status. Although typically her asthma worsened springtime. The patient will be maximize her respiratory therapy by increasing the Spiriva to the maximum dose. She is already using the Dulera twice a day. She also requires her rescue inhaler about twice a week. The patient did have a full cardiac workup which was reassuring. She has not had a chest x-ray now in couple years. Will go ahead and repeat her chest x-ray at this time. If his abnormal call her and will follow-up with any additional testing in the case. We did talk about biologics. The patient still is reluctant to use any biologics specially with a bad reaction to the Dupixent and also has had bad reactions to other medications. Therefore will continue to monitor her closely during the springtime if she has any issues she will call the office for an earlier assessment. Otherwise will follow-up in 4-6 months. 07/06/2023 the patient is here for a pulmonary sick visit. She has been sick now for about 2 days. She started developing chest tightness pressure and chest con gestion. Denies any fevers or chills. She has been using her nebulizer home with only partial resolution of her wheezing and chest tightness. She is very concerned. Again, we talked about biologic therapy. She is tried some in the past and had adverse effects and she really does not want to try anything else. Although I do believe Tezspire will be a very good option for her. Right now she has significant wheezing. I did give her 2 treatments with DuoNeb. 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 If the patient is no better she can always call to reassess. In the meantime we did review her recent CT scan of the chest. Her CT scan is reassuring she does have some pleural thickening areas and some areas of fibrosis but minimal. The patient does have mosaic pattern consistent with her asthma. [facility] Medical History Abnormal electrocardiogram [ECG] [EKG] Chest pain Bleeding hemorrhoids Eczema VERA positive DVT (deep venous thrombosis) Tachycardia Dyspnea Sinusitis Rash URI (upper respiratory infection) History of anesthesia problem Osteoarthritis Fibromyalgia GERD (gastroesophageal reflux disease) Cervicalgia Depression History of vertigo Varicose vein of leg Chronic pain of left knee Allergic rhinitis Anxiety Asthma Migraine Surgical History History of esophagogastroduodenoscopy (EGD) History of repair of right rotator cuff Hx of bilateral breast reduction surgery Hx of hemorrhoidectomy H/O varicose vein ligation and stripping Hx of colonoscopy Hx of hysterectomy Hx of appendectomy Hx laparoscopic cholecystectomy Status post right rotator cuff repair Family History Father No problems noted. Mother Family history of high blood pressure Dementia Social History Household Members: None Alcohol intake: never Patient Tobacco Use Status: Never used Tobacco Advance Directives Date on File: 04/03/18 Current occupational status: unemployed Current occupation: Left Handed Review of Systems Const Reports fatigue, Reports headache(s), Denies night sweats and Reports weight loss ENT Denies change in voice, Reports headache(s), Denies lip swelling, Denies mouth pain, Reports nasal congestion, Reports nasal discharge, Reports nasal obstruction, Reports post nasal drip and Denies tongue swelling Card Reports chest pain, Denies dyspnea and Reports dyspnea on exertion Resp Reports change in phlegm color, Reports chest congestion, Reports cough, Denies dyspnea, Reports dyspnea on exertion and Reports wheezing GI Denies abdominal pain, Denies diarrhea and Denies loose stools Musc Denies no additional complaints Neuro Denies Neuro-related abnormal movements, Denies burning sensations, Reports headache(s) and Denies paresthesias Psych Denies no additional complaints Endo Reports fatigue Shabbir/Lymph Denies easy bleeding and Denies lymphadenopathy Aller/Immun Denies lip swelling, Denies tongue swelling and Reports wheezing Physical Exam Vital Signs: Last Vital Signs Pulse 89 07/06/23 11:00 BP 110/60 07/06/23 11:00 Pulse Ox 97 07/06/23 11:00 Oxygen Delivery Method Room Air 07/06/23 11:00 BMI result Body Mass Index 22.6 Const General: cooperative, healthy appearing and comfortable Orientation/consciousness: oriented to person, oriented to place and oriented to time Neck Carotids: no bruits Chest Chest palpation & inspection: normal inspection of the chest and normal palpation of entire chest wall Resp Effort & Inspection: normal respiratory effort and prolonged expiratory phase Auscultation: wheezes and diminished lung sounds Cardio Rate: regular rate Heart sounds: S1 normal heart sound present and S2 normal heart sound present Peripheral pulses: Peripheral pulses 2+ throughout GI Inspection: Yes normal to inspection Skin Other: +2 edema, large rope-like varicosities greater than 3 mm CEAP Classification C4 - skin color changes Ep - Etiology Primary As - superficial veins P - reflux General skin exam: dry skin Neuro General: oriented to person, oriented to place and oriented to time Extrem Right lower extremity: full ROM, normal capillary refill and edema Left lower extremity: full ROM, normal capillary refill and edema Psych Mental Status: mental status grossly normal Assessment & Plan Assessment & Plan (1) Asthma: Code(s): J45.909 - Unspecified asthma, uncomplicated Category: Medical Qualifiers: Asthma severity: severe Asthma persistence: persistent Asthma complication type: with acute exacerbation Qualified Code(s): J45.51 - Severe persistent asthma with (acute) exacerbation (2) Allergic reaction: Code(s): T78.40XA - Allergy, unspecified, initial encounter Category: Medical Qualifiers: Encounter type: initial encounter Qualified Code(s): T78.40XA - Allergy, unspecified, initial encounter (3) GERD (gastroesophageal reflux disease): Code(s): K21.9 - Gastro-esophageal reflux disease without esophagitis Category: Medical Qualifiers: Esophagitis presence: with esophagitis Esophagitis bleeding: without hemorrhage Qualified Code(s): K21.00 - Gastro-esophageal reflux disease with esophagitis, without bleeding (4) Eczema: Code(s): L30.9 - Dermatitis, unspecified Category: Medical Qualifiers: Eczema type: intrinsic Qualified Code(s): L20.84 - Intrinsic (allergic) eczema Plan Start Prednisone taper Start Azithromycin Continue Dulera continue Spiriva 2.5 BRENDA as needed Continue nebulizer therapy consider tezspire Reflux diet Nasal rinsing consider sleep study Follow-up 3-6 months Orders: Orders AMB Nebulizer Treatment Today J45.50 - Severe persistent asthma, uncomplicated Medications: New azithromycin 500 mg PO DAILY 5 days 5 tabs 0RF ipratropium-albuterol 0.5 mg-3 mg(2.5 mg base)/3 mL 6 mL inhalation ONCE 6 mL 0RF J45.50 - Severe persistent asthma, uncomplicated Refilled prednisone PO daily; Take 6 tabs daily x 3 days, then 5 tabs x 3 days, then 4 tabs x 3 days, then 3 tabs x 3 days, then 2 tabs daily x 3 days, then 1 tab x 3 days to complete. 18 days 63 tabs 0RF albuterol sulfate 2.5 mg (3 mL) inhalation Q6H 30 days PRN 180 mL 11RF shortness of breath or wheezing Coding Level of Care Code Est Pt Level 4 (85654) Diagnoses Severe persistent asthma with acute exacerbation J45.51 Asthma severity: severe Asthma persistence: persistent Asthma complication type: with acute exacerbation Allergic reaction, initial encounter T78.40XA Encounter type: initial encounter Gastroesophageal reflux disease with esophagitis without hemorrhage K21.00 Esophagitis presence: with esophagitis Esophagitis bleeding: without hemorrhage Intrinsic eczema L20.84 Eczema type: intrinsic Time Spent (min) 17
== END 2023-07-06 11:43 | disposition home or self-care (01) ==
PROVIDERS: PCP Internal Medicine Geriatric Medicine; Visit Provider Hospitalist
DX: J45.51 Severe persistent asthma with (acute) exacerbation (principal); T78.40XA Allergy, unspecified, initial encounter; K21.00 Gastro-esophageal reflux disease with esophagitis, without bleeding; L20.84 Intrinsic (allergic) eczema
CPT/HCPCS: 99214

== ENCOUNTER → 2023-07-06 10:55 | Outpatient (BNVA) | payer OTHER, SELFPAY | PROVIDERS: PCP Internal Medicine Geriatric Medicine; Visit Provider Hospitalist | DX: J45.51 Severe persistent asthma with (acute) exacerbation (principal); T78.40XA Allergy, unspecified, initial encounter; K21.00 Gastro-esophageal reflux disease with esophagitis, without bleeding; L20.84 Intrinsic (allergic) eczema | CPT/HCPCS: 99212 ==

== ENCOUNTER 2023-09-25 09:45 | Outpatient (AMB) | payer OTHER, SELFPAY ==
--- NOTE | 2023-09-25 09:50 | MHC.OFFVIS ---
Vital Signs 09/25/23 09:52 Height 5 ft 3 in Weight 134 lb 7.712 oz BMI 23.8 BP 123/75 Blood Pressure Location Lt brachial Position Sitting Pulse 88 Intake Visit Reasons: f/u Open MrI Intake Note: Kaitlin presents in the office as a follow up MRI. CC: She was told MRI is normal. She is not having any concerns - she has a procedure in December but she is not sure what that is about. 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 Required: No Allergies ciprofloxacin [From Cipro] Allergy (Intermediate, Verified 09/25/23 09:52) HIVES/ITCHING oxycodone [Percocet] Allergy (Intermediate, Verified 09/25/23 09:52) Hives Penicillins Allergy (Intermediate, Verified 09/25/23 09:52) HIVES/ITCHING simvastatin [Simvastatin] Allergy (Intermediate, Verified 09/25/23 09:52) HIVES/ITCHINIG vancomycin [Vancomycin] Allergy (Intermediate, Verified 09/25/23 09:52) HIVES/ITCHING latex Allergy (Mild, Verified 09/25/23 09:52) Rash milnacipran [From Savella] Allergy (Mild, Verified 09/25/23 09:52) Hives Sulfa (Sulfonamide Antibiotics) Allergy (Mild, Verified 09/25/23 09:52) Shortness of Breath dupilumab [From Dupixent Pen] Adverse Reaction (Intermediate, Verified 09/25/23 09:52) neuropathy HPI HPI f/u Open MrI: Details: 68 yr old f w hx of cholecystectomy, here for f/u RECAP__initially saw [facility] [place], [place]--08/2019 She says she has a bacteria in her stomach ? h pylori. Significant bloating she could not eat. She had taken clarithromycin and Flagyl for 3- 4 days and began with nausea and vomiting. She finally had gone to the ED, Antibiotoic therapy discontinued despite GB taken out 1 yr ago she has simialr sx Her appetite is not great however she is not had any further vomiting, however continues with intermittent nausea, bloating and reflux though she discontinued omeprazole as well. She has very unstable BP- always in the ED. She is allergic to every antibiotic as well as anesthesia. Her daughter says that she needs to have monitoring whenever she is given any of the above. Her daughter was extremely concerned taking medications She did have a an abdominal ultrasound 08/08/19--fatty liver, otherwise ok LABS 08/2019--nml BMP, LFT< CBC, microcytosis EGD/colonoscopy--01/2020---patchy erythema, nml colon, bx with h pylori she was given quadruple therapy for h pylori subsequent H pylori breath test 04/2020---Negative, repeat H pylori 10/2021-- negATIVE GES--normal I also gave her linaclotide for constipation thought to be due to her medications she had BENITES and manometry at [facility] 04/2021--pos Demeeester, normal manometry IMAGING: CT 12/2019--- mild constipation, no acute findings US 2021- normal apart from mild aortic atherosclerosis US 10/2022--- aortic plaque seen, otherwise no acute findings She did have stool pos for norvovirus 09/2022 she also had fecal fat but nml panc elastase MRCP-- 08/23-- no filling defects in CBD, no masses INTERIM: she has ongoing sx with RUQ pain-- use he has post prandial with diarrhea and GERD carol in the morning she has noted RLQ discomfort as well which seems to be more annoying than RUQ pain no blood in the stool she denies nausea occ constipation EXAM: GENERAL: The patient is well developed and nontoxic. VITAL SIGNS:see workflow HEENT: Nonicteric sclerae, PERRLA, EOMI. Oropharynx clear. Moist mucous membranes. Conjunctivae appear well perfused. No thyroid mass. CHEST: Chest wall is nontender. HEART: Regular rate and rhythm without murmurs. LUNGS: Clear to auscultation bilaterally. ABDOMEN: Soft, positive bowel sounds, tender RUQ RLQ, no organomegaly. SKIN: No rash, no excessive bruising, petechiae, or purpura. NEUROLOGIC: Cranial nerves II-XII intact without motor/sensory deficit. psych--nml Assessment & Plan 1/ Undifferentiated abdominal pain, neg studies as above, with post prandial diarrhea, nausea, PLAN: 1/ CT e 2/ EGD pending 3/ trial of colestipol meantime, see if helps 4/ US doppler [facility] Medical History Abnormal electrocardiogram [ECG] [EKG] Chest pain Bleeding hemorrhoids Eczema VERA positive DVT (deep venous thrombosis) Tachycardia Dyspnea Sinusitis Rash URI (upper respiratory infection) History of anesthesia problem Osteoarthritis Fibromyalgia GERD (gastroesophageal reflux disease) Cervicalgia Depression History of vertigo Varicose vein of leg Chronic pain of left knee Allergic rhinitis Anxiety Asthma Migraine Surgical History History of esophagogastroduodenoscopy (EGD) History of repair of right rotator cuff Hx of bilateral breast reduction surgery Hx of hemorrhoidectomy H/O varicose vein ligation and stripping Hx of colonoscopy Hx of hysterectomy Hx of appendectomy Hx laparoscopic cholecystectomy Status post right rotator cuff repair Family History Father No problems noted. Mother Family history of high blood pressure Dementia Social History Household Members: None Alcohol intake: never Patient Tobacco Use Status: Never used Tobacco Advance Directives Date on File: 04/03/18 Current occupational status: unemployed Current occupation: Left Handed Physical Exam Vital Signs: Last Vital Signs Pulse 88 09/25/23 09:52 BP 123/75 09/25/23 09:52 BMI result Body Mass Index 23.8 Assessment & Plan Assessment & Plan (1) Postprandial abdominal bloating: Code(s): R14.0 - Abdominal distension (gaseous) Category: Medical Plan: cte Orders: Orders CT enterography Today R10.33 - Periumbilical pain Medications: New colestipol 1 g PO BID 60 tabs 2RF Coding Level of Care Code Est Pt Level 4 (40300) Diagnoses Postprandial abdominal bloating R14.0
[2023-09-25 09:52] VITALS: BP 123/75; PULSE 88; BMI 23.8
== END 2023-09-25 10:33 | disposition home or self-care (01) ==
PROVIDERS: PCP Internal Medicine Geriatric Medicine; Visit Provider Internal Medicine Gastroenterology
DX: R14.0 Abdominal distension (gaseous) (principal)
CPT/HCPCS: 99214

== ENCOUNTER → 2023-09-25 09:45 | Outpatient (BNVA) | payer OTHER, SELFPAY | PROVIDERS: PCP Internal Medicine Geriatric Medicine; Visit Provider Internal Medicine Gastroenterology | DX: R14.0 Abdominal distension (gaseous) (principal) | CPT/HCPCS: 99212 ==

== ENCOUNTER 2023-10-20 12:49 | Outpatient (AMB) | payer OTHER, SELFPAY ==
[2023-10-20 12:57] VITALS: BP 120/72; PULSE 90; BMI 24.0
--- NOTE | 2023-10-20 12:57 | A.OFFVIS_ITS ---
Vital Signs 10/20/23 12:57 Height 5 ft 3 in Weight 135 lb 5.821 oz BMI 24.0 BP 120/72 Blood Pressure Location Lt brachial Position Sitting Pulse 90 Pulse Source Pulse Oximeter Intake Visit Reasons: 6 MTH F/UP Assembly Machine Feeder Required: No Allergies ciprofloxacin [From Cipro] Allergy (Intermediate, Verified 10/20/23 12:59) HIVES/ITCHING oxycodone [Percocet] Allergy (Intermediate, Verified 10/20/23 12:59) Hives Penicillins Allergy (Intermediate, Verified 10/20/23 12:59) HIVES/ITCHING simvastatin [Simvastatin] Allergy (Intermediate, Verified 10/20/23 12:59) HIVES/ITCHINIG vancomycin [Vancomycin] Allergy (Intermediate, Verified 10/20/23 12:59) HIVES/ITCHING latex Allergy (Mild, Verified 10/20/23 12:59) Rash milnacipran [From Savella] Allergy (Mild, Verified 10/20/23 12:59) Hives Sulfa (Sulfonamide Antibiotics) Allergy (Mild, Verified 10/20/23 12:59) Shortness of Breath dupilumab [From Dupixent Pen] Adverse Reaction (Intermediate, Verified 10/20/23 12:59) neuropathy Medication List - Last Reconciled 10/20/23 by ALANIS HuberC albuterol sulfate 90 mcg/actuation 2 puffs PO Q4H PRN albuterol sulfate 2.5 mg (3 mL) inhalation Q6H PRN 30 days amitriptyline 50 mg PO BEDTIME amlodipine 10 mg PO DAILY azelastine 2 sprays intranasal BID azithromycin 500 mg PO DAILY 5 days blood pressure test kit-large As directed colestipol 1 g PO BID cyclobenzaprine 5 mg PO BEDTIME PRN diclofenac potassium 50 mg PO BID PRN dicyclomine 10 mg PO TID ezetimibe 10 mg PO DAILY fexofenadine 180 mg PO DAILY fluoxetine 20 mg PO DAILY fluticasone propionate 50 mcg/actuation 2 sprays intranasal DAILY hydrochlorothiazide 1 cap PO DAILY hydrocortisone acetate (Anusol-HC) 25 mg [place] BID inhalational spacing device (Aerochamber MV spacer) As directed ketotifen fumarate 0.025%(0.035%) 1 drp ophthalmic (eye) BID PRN levalbuterol HCl (Xopenex) 1.25 mg (3 mL) inhalation Q6H PRN 30 days levalbuterol tartrate 45 mcg/actuation 2 puffs inhalation Q4H PRN lorazepam 1 tab PO BID menthol-zinc oxide 0.44-20.6 % (Calmoseptine) 1 appl topical QID PRN mometasone-formoterol 200-5 mcg/actuation (Dulera) 2 puffs inhalation BID 30 days montelukast 10 mg PO DAILY nebulizers As directed omeprazole mg PO QAM pravastatin 20 mg PO DAILY sucralfate 10 mL PO BID sumatriptan succinate mg PO tezepelumab-ekko (Tezspire) 210 mg (1.91 mL) subcut Q4W 12 months tiotropium bromide 2.5 mcg/actuation (Spiriva Respimat) 2 puffs inhalation DAILY 30 days triamcinolone acetonide 0.1% 1 appl topical BID 30 days valsartan 80 mg PO DAILY zinc sulfate 50 mg PO DAILY HPI HPI 6 MTH F/UP: Details: Kaitlin is a 68-year-old female with past medical history of asthma, hypertension, prior abnormal EKG in the setting of uncontrolled hypertension, DVT who presents for follow-up. Today she reports that her asthma has been bothersome recently. She has had issues with allergies and nasal congestion. She is feeling short of breath at times and has an upcoming appointment with her photogrammetry airplane pilot to discuss. She has not had any concerning chest discomfort. No palpitations, lightheadedness, presyncope, syncope, PND, orthopnea or edema. At times her blood pressure is high in the evenings and she will take an additional valsartan. She has been taking her other meds as directed. She declined pay per click strategist at this visit. [facility] Medical History Abnormal electrocardiogram [ECG] [EKG] Chest pain Bleeding hemorrhoids Eczema VERA positive DVT (deep venous thrombosis) Tachycardia Dyspnea Sinusitis Rash URI (upper respiratory infection) History of anesthesia problem Osteoarthritis Fibromyalgia GERD (gastroesophageal reflux disease) Cervicalgia Depression History of vertigo Varicose vein of leg Chronic pain of left knee Allergic rhinitis Anxiety Asthma Migraine Surgical History History of esophagogastroduodenoscopy (EGD) History of repair of right rotator cuff Hx of bilateral breast reduction surgery Hx of hemorrhoidectomy H/O varicose vein ligation and stripping Hx of colonoscopy Hx of hysterectomy Hx of appendectomy Hx laparoscopic cholecystectomy Status post right rotator cuff repair Family History Father No problems noted. Mother Family history of high blood pressure Dementia Social History Household Members: None Alcohol intake: never Patient Tobacco Use Status: Never used Tobacco Advance Directives Date on File: 04/03/18 Current occupational status: unemployed Current occupation: Left Handed Review of Systems Const All systems reviewed & are unremarkable except as noted in HPI and below ENT Denies dizziness Card Denies chest pain, Denies chest pain at rest, Denies chest pain with activity, Denies rapid heart rate, Denies pedal edema, Denies edema, Denies leg edema, Denies lightheadedness, Denies palpitations, Reports dyspnea, Reports dyspnea on exertion and Denies orthopnea Resp Denies cough, Reports dyspnea and Reports dyspnea on exertion GI Denies hematochezia and Denies change in stool character Musc Denies abnormal gait, Reports limited range of motion, Reports muscle cramps, Denies muscle weakness, Denies numbness, Denies radiating pain into limb, Denies stiffness and Denies tingling Neuro Denies abnormal gait, Denies dizziness, Denies numbness and Denies tingling Endo Denies palpitations Physical Exam Vital Signs: Last Vital Signs Pulse 90 10/20/23 12:57 BP 120/72 10/20/23 12:57 BMI result Body Mass Index 24.0 Const General: cooperative, healthy appearing, comfortable and no acute distress Orientation/consciousness: patient oriented x3 Neck Neck: Yes normal visual inspection and Yes no JVD Resp Effort & Inspection: normal respiratory effort Auscultation: clear to auscultation bilaterally, no crackles, no rales, no rhonchi and no wheezes Cardio Jugular venous distension: no JVD Rate: regular rate Rhythm: regular rhythm Heart sounds: S1 normal heart sound present, S2 normal heart sound present, no murmurs and no rubs Neuro General: patient oriented x3 Extrem General: Yes normal to inspection and No no pedal edema Psych Appearance: grossly normal Mental Status: mental status grossly normal Speech and movement: Normal speech and movement present Assessment & Plan Assessment & Plan (1) Chest tightness: Code(s): R07.89 - Other chest pain Category: Medical Plan: Prior Reports of intermittent chest tightness that she related to an asthma sensation. EKG done 04/24/2022 in the setting migraine headache and elevated blood pressure readings showed ST abnormalities in the anterior and lateral leads. She has no cardiac history. Cardiac risk factors of age, hypertension, hyperlipidemia. A dobutamine nuclear stress test was done on 04/22/2023 showing normal myocardial perfusion imaging. Echocardiogram done 04/16/2023 showed EF 60-65%, grade 1 diastolic dysfunction, no valve abnormalities. EKG abnormalities were likely related to cardiac strain in the setting of hypertension. The importance of good blood pressure control reviewed. Blood pressure is good at this time. She has no reports of anginal sounding symptoms at present. Suggested cardiology follow-up p.r.n. and she would like to follow with us periodically. Cardiology follow-up in 6 months, sooner if needed to evaluate blood pressure, symptoms. (2) Abnormal electrocardiogram [ECG] [EKG]: Code(s): R94.31 - Abnormal electrocardiogram [ECG] [EKG] Category: Medical Plan: As above (3) Asthma: Code(s): J45.909 - Unspecified asthma, uncomplicated Category: Medical Qualifiers: Asthma severity: severe Asthma persistence: persistent Asthma complication type: with acute exacerbation Qualified Code(s): J45.51 - Severe persistent asthma with (acute) exacerbation Plan: As above (4) Hypertension: Code(s): I10 - Essential (primary) hypertension Category: Medical Plan: History of hypertension. Blood pressure normal at this time on amlodipine 10 mg daily and valsartan 80 mg daily. She tells me it is elevated at times in the evening on her home blood pressure checks and she will take an additional valsartan. Consider increasing her dose overall verses restarting hydrochlorothiazide and she declines at this time. She has been experiencing issues with her asthma and this likely contributes to the more elevated readings periodically. She will follow with her photogrammetry airplane pilot to discuss further treatments for her asthma. She plans a follow-up with her PCP in the near future to further discuss medications. Together we opted to continue current med management at present. Plan Time spent on chart review, documentation, interview and assessment Coding Level of Care Code Est Pt Level 3 (22253) Diagnoses Chest tightness R07.89 Abnormal electrocardiogram [ECG] [EKG] R94.31 Severe persistent asthma with acute exacerbation J45.51 Asthma severity: severe Asthma persistence: persistent Asthma complication type: with acute exacerbation Hypertension I10 Time Spent (min) 24
== END 2023-10-20 13:51 | disposition home or self-care (01) ==
PROVIDERS: PCP Internal Medicine Geriatric Medicine; Visit Provider Nurse Practitioner Family
DX: R07.89 Other chest pain (principal); R94.31 Abnormal electrocardiogram [ECG] [EKG]; J45.51 Severe persistent asthma with (acute) exacerbation; I10 Essential (primary) hypertension
CPT/HCPCS: 99213

== ENCOUNTER → 2023-10-20 12:49 | Outpatient (BNVA) | payer OTHER, SELFPAY | PROVIDERS: PCP Internal Medicine Geriatric Medicine; Visit Provider Nurse Practitioner Family | DX: J45.51 Severe persistent asthma with (acute) exacerbation (principal); R07.89 Other chest pain; R94.31 Abnormal electrocardiogram [ECG] [EKG]; I10 Essential (primary) hypertension | CPT/HCPCS: 99212 ==

== ENCOUNTER 2023-11-06 10:32 | Outpatient (AMB) | payer OTHER, SELFPAY ==
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
[2023-11-06 10:37] VITALS: BP 100/60; PULSE 89; O2SAT 98; BMI 22.8
== END 2023-11-06 11:01 | disposition home or self-care (01) ==
PROVIDERS: PCP Internal Medicine Geriatric Medicine; Visit Provider Hospitalist
DX: J45.51 Severe persistent asthma with (acute) exacerbation (principal); T78.40XA Allergy, unspecified, initial encounter; K21.00 Gastro-esophageal reflux disease with esophagitis, without bleeding; L20.84 Intrinsic (allergic) eczema
CPT/HCPCS: 99214; G2211

== ENCOUNTER → 2023-11-06 10:32 | Outpatient (BNVA) | payer OTHER, SELFPAY | PROVIDERS: PCP Internal Medicine Geriatric Medicine; Visit Provider Hospitalist | DX: J44.9 Chronic obstructive pulmonary disease, unspecified (principal); J45.51 Severe persistent asthma with (acute) exacerbation; T78.40XA Allergy, unspecified, initial encounter; K21.00 Gastro-esophageal reflux disease with esophagitis, without bleeding; L20.84 Intrinsic (allergic) eczema; X58.XXXA Exposure to other specified factors, initial encounter | CPT/HCPCS: 99212 ==

== ENCOUNTER 2023-11-11 09:27 | Outpatient (REF) | payer OTHER, SELFPAY ==
--- NOTE | ~2023-11-11 | CT_ITS ---
EXAMINATION: CT ENTEROGRAPHY ABDOMEN AND PELVIS WITH CONTRAST CLINICAL INFORMATION: Periumbilical pain COMPARISON: CT dated April 24, 2022 TECHNIQUE: Study performed with oral VoLumen (1500 mL) and 480 mL of water to distend the abdomen. The patient was injected with 85 mL Omnipaque 350 intravenous contrast which was administered without adverse effect. Coronal and sagittal reformatted images were obtained at the technologist's workstation. This CT examination was performed using dose optimization techniques as appropriate, variously including the following: *Automated exposure control *Adjustment of mA and/or kV according to patient size (this includes techniques or standardized protocols for targeted exams where dose is matched to indication/reason for exam; i.e. extremities or head) *Use of iterative reconstruction technique DLP: 615 mGy-cm FINDINGS: Submitted for interpretation on February 01, 2024. Poor distention of the small and large intestine with segmental areas of collapsed/peristalsis and abundant stool in the large intestine. GASTROINTESTINAL FINDINGS: Stomach: No focal mass. Small intestine: No gross wall thickening. No intestinal obstruction pattern. Large intestine: Abundant stool. No intestinal obstruction pattern. No pneumatosis intestinalis. No gross diverticulum. Additional findings: No abnormal enhancement of the vasa recta or significant mesenteric or retroperitoneal lymphadenopathy is seen. No abdominal abscess or fistulous tract demonstrated. ABDOMINAL AND PELVIC CT FINDINGS: No gross abdominal wall hernia stable nodularity at the umbilicus. Liver, gallbladder, biliary tract: Liver measures 16 cm. Subtle nodularity of the liver surface. Decreased enhancement pattern. No focal mass. The main portal veins hepatic veins and intrahepatic portion of the IVC are patent. Punctate calcification in the right hepatic lobe. Status post cholecystectomy. Common bile duct measures 7 mm.. Pancreas: No focal pancreatic mass. No peripancreatic fluid collection. No main pancreatic ductal dilatation. Spleen: 10 cm. No focal mass. Adrenal glands and kidneys: No nodular lesions in the adrenal glands. No gross renal mass. No hydronephrosis. Normal enhancement pattern throughout the renal parenchyma. Ureters and bladder: No dilatation of the ureters. Bladder is fluid-filled. Lymphovascular structures: No gross lymphadenopathy. Calcified plaques throughout the aorta the mesenteric arteries, the iliac arteries and the origin of the main renal arteries as well as the splenic artery. Large calcified plaque in the origin of the left main renal artery. No aneurysm or dissection, abdominal aorta. Bones: There is a trabeculated lytic lesion at T12. Multilevel thoracolumbar spondylosis more conspicuous at L5-S1 resulting in grade 1 retrolisthesis. Lung bases: No acute airspace disease in the included lungs. Multiple nodularities in the fat planes of the gluteal region likely related to prior surgery. There is a radiopaque abnormality in the right nipple/areolar complex. CT/CT enterography IMPRESSION: Stable nodularity in the umbilical without gross hernia Hepatomegaly and steatosis with questionable hepatocellular disease. Atherosclerosis disease. Spondylosis, L5-S1. Probable intraosseous hemangioma, T12 vertebra.. Electronically signed by: Krishan Hammer MD 02/01/2024 01:08 PM PUMA
[2023-11-11] MEDS: iohexoL 350 MG/ML 100 ML INFUS..BTL 85 ML IV (11:41)
[2023-11-11] MEDS: Sorbitol/Mannit/Xanth Imaging 500 ML LIQUID 1500 ML PO (11:41)
[2023-11-12 07:44] LABS: Creatinine POC 0.5 mg/dL (0.5-1.4); GFR POC > 60
== END 2023-11-11 09:28 | disposition home or self-care (01) ==
LOC: HO.CT 09:27
PROVIDERS: PCP Internal Medicine Geriatric Medicine; Visit Provider Internal Medicine Gastroenterology
DX: R10.33 Periumbilical pain (principal)
CPT/HCPCS: 74177; 82565; Q9967

== ENCOUNTER → 2023-11-11 09:29 | Outpatient (BNV) | payer OTHER, SELFPAY | PROVIDERS: PCP Internal Medicine Geriatric Medicine; Visit Provider Radiology Diagnostic Radiology | DX: R16.2 Hepatomegaly with splenomegaly, not elsewhere classified (principal) | CPT/HCPCS: 74177 ==

== ENCOUNTER 2023-11-20 09:45 | Outpatient (REF) | payer OTHER, SELFPAY ==
--- NOTE | ~2023-11-20 | XR_ITS ---
EXAMINATION: XR CERVICAL SPINE CLINICAL INFORMATION: Chronic neck pain. COMPARISON: Cervical spine radiographs dated 10/27/2021. TECHNIQUE: AP, lateral, open-mouth, and bilateral oblique views of the cervical spine. FINDINGS: Minimal straightening of the normal cervical lordosis which may be positional. Grade 1 retrolisthesis of C3 and C4, unchanged. No acute fracture or subluxation. No loss of vertebral body height. Loss of intervertebral disc height with endplate osteophytes at C3-C6. Normal atlantoaxial alignment. No concerning lytic or blastic osseous lesion. Unremarkable prevertebral soft tissues. XR/XR cervical spine 4V IMPRESSION: 1. Minimal straightening of the normal cervical lordosis which may be positional. Grade 1 retrolisthesis of C3 and C4, unchanged. 2. Moderate degenerative disc disease at C3-C6, unchanged. Electronically signed by: Cam Vasquez MD 12/10/2023 12:48 PM EDT
== END 2023-11-20 09:46 | disposition home or self-care (01) ==
LOC: HO.XRAY 09:45
PROVIDERS: PCP Internal Medicine Geriatric Medicine; Visit Provider Internal Medicine Geriatric Medicine
DX: M54.2 Cervicalgia (principal); G89.29 Other chronic pain
CPT/HCPCS: 72050

== ENCOUNTER 2023-12-09 11:10 | Emergency (ER) | payer OTHER, SELFPAY ==
--- NOTE | ~2023-12-09 | XR_ITS ---
EXAMINATION: XR CHEST CLINICAL INFORMATION: Coughing. COMPARISON: Chest CT dated June 04, 2023. Chest x-ray dated May 01, 2023. TECHNIQUE: PA view of the chest was obtained. FINDINGS: No focal infiltrate, effusion, or pneumothorax is seen. The cardiac silhouette appears normal in size. Suspect severe coronary arterial calcification. Mild atherosclerotic aorta. Mild biapical fibrotic changes. Metallic presumed orthopedic anchor screws project over the right shoulder. XR/XR chest 1V IMPRESSION: No acute finding. Electronically signed by: Jose Chew MD 12/09/2023 02:00 PM EDT
--- NOTE | 2023-12-09 11:14 | ECG_ITS ---
Test Reason : CHEST PAIN Blood Pressure : / mmHG Vent. Rate : 094 BPM Atrial Rate : 094 BPM P-R Int : 170 ms QRS Dur : 080 ms QT Int : 360 ms P-R-T Axes : 051 012 037 degrees QTc Int : 450 ms Normal sinus rhythm Nonspecific T wave abnormality Abnormal ECG When compared with ECG of 22-DEC-2022 21:57, No significant change was found Referred By: Jeremiah Szymanski Electronically Signed By:SANDRINE DESIR MD
[2023-12-09 11:49] VITALS: BP 138/88; PULSE 83; RESP 18; TEMP 36.8; O2SAT 98; BMI 22.8
--- NOTE | 2023-12-09 11:56 | ED_ITS ---
HPI - General Adult General Chief complaint: Dyspnea Stated complaint: [id number] History of Present Illness HPI narrative: Patient left before completion of treatment by ED provider. Related Data Home Medications ?Medication ?Instructions ?Recorded ?Confirmed hydrochlorothiazide 12.5 mg capsule 1 cap PO DAILY 12/14/19 10/20/23 ketotifen fumarate 0.025 % (0.035 1 drp ophthalmic (eye) BID PRN 12/14/19 10/20/23 %) eye drops Allergy Symptoms levalbuterol tartrate 45 2 puff inhalation Q4H PRN Wheezing 12/14/19 04/27/23 mcg/actuation aerosol inhaler lorazepam 1 mg tablet 1 tab PO BID 12/14/19 04/27/23 amitriptyline 50 mg tablet 50 mg PO BEDTIME 03/27/20 10/20/23 valsartan 80 mg tablet 80 mg PO DAILY 05/21/20 04/27/23 fluoxetine 20 mg capsule 20 mg PO DAILY 11/22/20 10/20/23 fluticasone propionate 50 2 spray intranasal DAILY 11/22/20 10/20/23 mcg/actuation nasal spray,suspension blood pressure test kit-large #1 ea 12/28/20 04/27/23 azelastine 137 mcg (0.1 %) nasal 2 spray intranasal BID 02/10/22 10/20/23 spray fexofenadine 180 mg tablet 180 mg PO DAILY 02/10/22 10/20/23 ezetimibe 10 mg tablet 10 mg PO DAILY 10/20/22 10/20/23 omeprazole 20 mg capsule,delayed mg PO QAM 10/20/22 04/27/23 release pravastatin 20 mg tablet 20 mg PO DAILY 12/30/22 04/27/23 sumatriptan succinate 25 mg tablet mg PO 05/29/23 nebulizers 07/06/23 hydroxyzine HCl 25 mg tablet 25 mg PO DAILY 11/06/23 losartan 50 mg tablet 50 mg PO DAILY 11/06/23 naproxen 500 mg tablet 500 mg PO BID 11/06/23 Previous Rx's ?Medication ?Instructions ?Recorded inhalational spacing device #1 ea 01/29/21 (Aerochamber MV spacer) levalbuterol HCl 1.25 mg/3 mL 1.25 mg (3 mL) inhalation Q6H PRN 03/04/21 solution for nebulization (Xopenex) shortness of breath or wheezing 30 days #360 mL cyclobenzaprine 5 mg tablet 5 mg PO BEDTIME PRN muscle spasm 10/27/21 #10 tabs tezepelumab-ekko 210 mg/1.91 mL 210 mg (1.91 mL) subcut Q4W 12 03/14/22 (110 mg/mL) subcutaneous syringe months #24.83 mL (Tezspire) sucralfate 100 mg/mL oral 10 ml PO BID #1,000 mL 03/18/22 suspension mometasone-formoterol HFA 200 2 puff inhalation BID 30 days #13 06/13/22 mcg-5 mcg/actuation aerosol grams inhaler (Dulera) triamcinolone acetonide 0.1 % 1 appl topical BID 30 days #80 06/13/22 topical ointment grams diclofenac potassium 50 mg tablet 50 mg PO BID PRN for pain #60 tabs 09/04/22 hydrocortisone acetate 25 mg 25 mg MD BID hemorrhoid pain #24 ea 11/10/22 rectal suppository (Anusol-HC) menthol 0.44 %-zinc oxide 20.6 % 1 appl topical QID PRN Hemorrhoid 11/10/22 topical ointment (Calmoseptine) pain #113 grams montelukast 10 mg tablet 10 mg PO DAILY #90 tabs 01/28/23 amlodipine 10 mg tablet 10 mg PO DAILY #90 tabs 03/09/23 albuterol sulfate 90 mcg/actuation 2 puff PO Q4H PRN Wheezing #8.5 03/16/23 aerosol inhaler grams zinc sulfate 50 mg zinc (220 mg) 50 mg PO DAILY #30 caps 03/30/23 capsule tiotropium bromide 2.5 2 puff inhalation DAILY 30 days #1 05/01/23 mcg/actuation mist for inhalation ea (Spiriva Respimat) albuterol sulfate 2.5 mg/3 mL 2.5 mg (3 mL) inhalation Q6H PRN 07/06/23 (0.083 %) solution for nebulization shortness of breath or wheezing 30 days #180 mL azithromycin 500 mg tablet 500 mg PO DAILY 5 days #5 tabs 07/06/23 colestipol 1 gram tablet 1 g PO BID #60 tabs 09/25/23 dicyclomine 10 mg capsule 10 mg PO TID #270 caps 09/28/23 doxycycline hyclate 100 mg capsule 100 mg PO BID 10 days #20 caps 11/06/23 oxymetazoline 0.05 % nasal spray 2 spray intranasal Q12H PRN nasal 11/06/23 (Afrin (oxymetazoline)) congestion 5 days #22 mL prednisone 10 mg tablet See Rx Instructions PO DAILY 18 11/06/23 days #63 tabs roflumilast 250 mcg tablet 250 mcg PO DAILY 30 days #30 tabs 11/06/23 (Daliresp) Allergies Allergy/AdvReac Type Severity Reaction Status Date / Time ciprofloxacin [From Cipro] Allergy Intermediate HIVES/ITCHI Verified 12/10/23 06:23 NG oxycodone [Percocet] Allergy Intermediate Hives Verified 12/10/23 06:23 Penicillins Allergy Intermediate HIVES/ITCHI Verified 12/10/23 06:23 NG simvastatin [Simvastatin] Allergy Intermediate HIVES/ITCHI Verified 12/10/23 06:23 NIG vancomycin [Vancomycin] Allergy Intermediate HIVES/ITCHI Verified 12/10/23 06:23 NG latex Allergy Mild Rash Verified 12/10/23 06:23 milnacipran [From Savella] Allergy Mild Hives Verified 12/10/23 06:23 Sulfa (Sulfonamide Allergy Mild Shortness Verified 12/10/23 06:23 Antibiotics) of Breath dupilumab [From Dupixent Pen] AdvReac Intermediate neuropathy Verified 12/10/23 06:23 PMFSH Past Medical History Medical History Abnormal electrocardiogram [ECG] [EKG] Chest pain Bleeding hemorrhoids Eczema VERA positive DVT (deep venous thrombosis) Tachycardia Dyspnea Sinusitis Rash URI (upper respiratory infection) History of anesthesia problem Osteoarthritis Fibromyalgia GERD (gastroesophageal reflux disease) Cervicalgia Depression History of vertigo Varicose vein of leg Chronic pain of left knee Allergic rhinitis Anxiety Asthma Migraine Surgical History History of esophagogastroduodenoscopy (EGD) History of repair of right rotator cuff Hx of bilateral breast reduction surgery Hx of hemorrhoidectomy H/O varicose vein ligation and stripping Hx of colonoscopy Hx of hysterectomy Hx of appendectomy Hx laparoscopic cholecystectomy Status post right rotator cuff repair Family History Family History Father No problems noted. Mother Family history of high blood pressure Dementia Social History Social History Household Members: None Alcohol intake: never Patient Tobacco Use Status: Never used Tobacco Advance Directives: No Advance Directives Information Provided: Yes Advance Directives Date on File: 04/03/18 Current occupational status: unemployed Current occupation: Left Handed Physical Exam ED Vital Signs: Vital Signs - 24 hr 12/09/23 11:49 12/09/23 12:24 Temperature 98.3 F Pulse Rate 83 107 H Respiratory Rate 18 19 Blood Pressure 138/88 Pulse Oximetry 98 Oxygen Delivery Method Room Air BMI result Body Mass Index 22.8 Course Course Course Narrative: RME: done by GLENDA Szymanski. 68-year-old female presents to ED for 1 week of coughing, shortness of breath and chest tightness. Patient states no one sick at home and has had negative COVID test. Patient states no relief with nebulizer treatment. Lungs positive for wheezing. Negative for lower extremity swelling, pitting edema, calf tenderness. URI with due to age will do EKG cardiac workup. Chest x-ray SARs ordered Medications Administered Discontinued Medications Generic Name Dose Route Start Last Admin Trade Name Freq PRN Reason Stop Dose Admin Albuterol Sulfate 8 puff 12/09/23 12:15 12/09/23 12:22 Albuterol Sulfate 90 Mcg 8 Gm Inhaler INHALE 12/09/23 12:16 8 puff ONCE ONE Administration Medical Decision Making Lab Data 12/09/23 13:02 12/09/23 13:02 Labs: Lab Results 12/09/23 Range/Units 13:02 WBC 10.8 (4.8-10.8) X10*3/uL RBC 4.73 (4.20-5.50) X10*6/uL Hgb 12.3 (12.0-16.0) g/dl Hct 38.0 (37.0-47.0) % MCV 80.3 (80.0-98.0) fL MCH 26.0 L (27.0-33.0) pg MCHC 32.4 (31.0-35.0) g/dl RDW 14.5 (11.0-16.0) % Plt Count 227 (160-400) X10*3/uL MPV 9.3 L (9.4-12.3) fL Immature Gran % (Auto) 0.5 H (0.0-0.4) % Neut % (Auto) 57.3 (45-73) % Lymph % (Auto) 33.4 (20-40) % [place] % (Auto) 6.6 (2-11) % Eos % (Auto) 1.6 (0-4) % Baso % (Auto) 0.6 (0-2) % Lymph # (Auto) 3.6 (1.2-4.9) X10*3/uL [place] # (Auto) 0.7 (0.1-1.2) X10*3/uL Eos # (Auto) 0.2 (0.0-0.4) X10*3/uL Baso # (Auto) 0.1 (0.0-0.2) X10*3/uL Abs Immat Gran (auto) 0.05 H (0.00-0.03) X10*3/uL Absolute Neuts (auto) 6.2 (2.0-8.3) x10*3/uL Absolute Nucleated RBC 0.000 (0.0-0.012) X10*3/uL Nucleated RBC % (auto) 0.0 (0.0-0.2) /100WBC PT 10.9 (10.9-12.4) SEC INR 0.9 (0.9-1.1) APTT 29.0 (26.0-36.8) SEC Sodium 145 (135-145) mmol/L Potassium 3.1 L (3.3-5.1) mmol/L Chloride 109 H (96-108) mmol/L Carbon Dioxide 28 (22-29) mmol/L Anion Gap 11 L (12-20) BUN 16 (9-16) mg/dL Creatinine 0.60 (0.5-1.4) mg/dL Estim Creat Clear Calc 73.2 Estimated GFR > 60 Random Glucose 107 (60-115) mg/dL Calcium 9.5 (8.4-10.2) mg/dL Total Bilirubin 0.2 (0.0-1.0) mg/dL AST 22 (5-31) U/L ALT 15 (0-31) U/L Alkaline Phosphatase 84 (39-117) U/L Troponin I High Sens < 2.7 (<3.5-17.0) ng/L B-Natriuretic Peptide 33 (<100) pg/mL Total Protein 7.4 (6.5-8.0) g/dL Albumin 4.1 (3.5-5.0) g/dL Influenza Type A (PCR) NEGATIVE (Negative) Influenza Type B (PCR) NEGATIVE (Negative) RSV RNA Qual (PCR) NEGATIVE (Negative) SARS-CoV-2 RNA (RT-PCR) NEGATIVE (Negative) S. pyogenes GrpA JOEL Negative (Negative) Discharge Plan Discharge Clinical Impression: Asthma Qualifiers: Asthma severity: severe Asthma persistence: persistent Asthma complication type: with acute exacerbation Qualified Code(s): J45.51 - Severe persistent asthma with (acute) exacerbation Patient Disposition: Left W/O Completing Treatment Prescriptions: No Action levalbuterol HCl [Xopenex] 1.25 mg/3 mL solution for nebulization 1.25 mg inhalation Q6H PRN (Reason: shortness of breath or wheezing) 30 Days Qty: 360 11RF Tezspire 210 mg/1.91 mL (110 mg/mL) syringe 210 mg subcut Q4W 360 Days Qty: 24.83 0RF sucralfate 100 mg/mL suspension 10 ml PO BID Qty: 1000 0RF diclofenac potassium 50 mg tablet 50 mg PO BID PRN (Reason: for pain) Qty: 60 0RF montelukast 10 mg tablet 10 mg PO DAILY Qty: 90 3RF albuterol sulfate 90 mcg/actuation HFA aerosol inhaler 2 puff PO Q4H PRN (Reason: Wheezing) Qty: 8.5 11RF zinc sulfate 50 mg zinc (220 mg) capsule 50 mg PO DAILY Qty: 30 2RF dicyclomine 10 mg capsule 10 mg PO TID Qty: 270 1RF ketotifen fumarate 0.025 % (0.035 %) drops 1 drp ophthalmic (eye) BID PRN (Reason: Allergy Symptoms) hydrochlorothiazide 12.5 mg capsule 1 cap PO DAILY lorazepam 1 mg tablet 1 tab PO BID levalbuterol tartrate 45 mcg/actuation HFA aerosol inhaler 2 puff inhalation Q4H PRN (Reason: Wheezing) cyclobenzaprine 5 mg tablet 5 mg PO BEDTIME PRN (Reason: muscle spasm) Qty: 10 0RF valsartan 80 mg tablet 80 mg PO DAILY amitriptyline 50 mg tablet 50 mg PO BEDTIME fluoxetine 20 mg capsule 20 mg PO DAILY fexofenadine 180 mg tablet 180 mg PO DAILY fluticasone propionate 50 mcg/actuation spray,suspension 2 spray intranasal DAILY (DME) blood pressure test kit-large Kit See Rx Instructions .ROUTE BID Qty: 1 Rx Instructions: As directed azelastine 137 mcg (0.1 %) aerosol,spray 2 spray intranasal BID ezetimibe 10 mg tablet 10 mg PO DAILY omeprazole 20 mg capsule,delayed release(DR/EC) PO QAM triamcinolone acetonide 0.1 % ointment 1 appl topical BID 30 Days Qty: 80 1RF Dulera 200-5 mcg/actuation HFA aerosol inhaler 2 puff inhalation BID 30 Days Qty: 13 11RF (DME) Aerochamber MV Spacer See Rx Instructions .ROUTE .MEDSUPPLY Qty: 1 0RF Rx Instructions: As directed menthol-zinc oxide [Calmoseptine] 0.44-20.6 % ointment 1 appl topical QID PRN (Reason: Hemorrhoid pain) Qty: 113 0RF hydrocortisone acetate [Anusol-HC] 25 mg suppository 25 mg MD BID Qty: 24 2RF pravastatin 20 mg tablet 20 mg PO DAILY amlodipine 10 mg tablet 10 mg PO DAILY Qty: 90 3RF losartan 50 mg tablet 50 mg PO DAILY hydroxyzine HCl 25 mg tablet 25 mg PO DAILY naproxen 500 mg tablet 500 mg PO BID prednisone 10 mg tablet See Rx Instructions PO DAILY 18 Days Qty: 63 1RF Rx Instructions: PO daily; Take 6 tabs daily x 3 days, then 5 tabs x 3 days, then 4 tabs x 3 days, then 3 tabs x 3 days, then 2 tabs daily x 3 days, then 1 tab x 3 days to complete. oxymetazoline [Afrin (oxymetazoline)] 0.05 % spray,non-aerosol 2 spray intranasal Q12H PRN (Reason: nasal congestion) 5 Days Qty: 22 0RF doxycycline hyclate 100 mg capsule 100 mg PO BID 10 Days Qty: 20 0RF roflumilast [Daliresp] 250 mcg tablet 250 mcg PO DAILY 30 Days Qty: 30 11RF ipratropium-albuterol 0.5 mg-3 mg(2.5 mg base)/3 mL solution for nebulization 6 ml inhalation ONCE Qty: 6 0RF (DME) nebulizers Misc See Rx Instructions .ROUTE Rx Instructions: As directed albuterol sulfate 2.5 mg /3 mL (0.083 %) solution for nebulization 2.5 mg inhalation Q6H PRN (Reason: shortness of breath or wheezing) 30 Days Qty: 180 11RF azithromycin 500 mg tablet 500 mg PO DAILY 5 Days Qty: 5 0RF sumatriptan succinate 25 mg tablet PO Spiriva Respimat 2.5 mcg/actuation mist 2 puff inhalation DAILY 30 Days Qty: 1 11RF colestipol 1 gram tablet 1 g PO BID Qty: 60 2RF Discharge Date/Time: 12/09/23 19:03
[2023-12-09] MEDS: Albuterol Sulfate 90 MCG 8 GM INHALER 8 PUFF INHALE (12:22)
[2023-12-09 12:24] VITALS: PULSE 107; RESP 19; O2SAT 99
[2023-12-09 13:07] LABS: MANUAL DIFF FLAG NO
[2023-12-09 13:10] LABS: Basophils Absolute Auto 0.1 X10*3/uL (0.0-0.2); Basophils Percent Auto 0.6 % (0-2); Eosinophils Absolute Auto 0.2 X10*3/uL (0.0-0.4); Eosinophils Percent Auto 1.6 % (0-4); Hemoglobin 12.3 g/dl (12.0-16.0); Imm Gran Abs Auto 0.05 X10*3/uL (0.00-0.03); Imm Gran Pct Auto 0.5 % (0.0-0.4); Lymphocytes Absolute Auto 3.6 X10*3/uL (1.2-4.9); Lymphocytes Percent Auto 33.4 % (20-40); Mean Corpuscular HGB Conc 32.4 g/dl (31.0-35.0); Mean Corpuscular Volume 80.3 fL (80.0-98.0); Mean Platelet Volume 9.3 fL (9.4-12.3); Monocytes Absolute Auto 0.7 X10*3/uL (0.1-1.2); Monocytes Percent Auto 6.6 % (2-11); Neutrophils Absolute Auto 6.2 x10*3/uL (2.0-8.3); Neutrophils Percent Auto 57.3 % (45-73); Platelet Count 227 X10*3/uL (160-400); Red Blood Count 4.73 X10*6/uL (4.20-5.50); Red Cell Distribution Width 14.5 % (11.0-16.0); White Blood Count 10.8 X10*3/uL (4.8-10.8)
[2023-12-09 13:18] LABS: INTERNATIONAL NORM RATIO 0.9 (0.9-1.1); Prothrombin Time 10.9 SEC (10.9-12.4)
[2023-12-09 13:22] LABS: Alanine Aminotransferase 15 U/L (0-31); Albumin Level 4.1 g/dL (3.5-5.0); Alkaline Phosphatase 84 U/L (39-117); Anion Gap 11 (12-20); Aspartate Amino Transferase 22 U/L (5-31); Bilirubin Total 0.2 mg/dL (0.0-1.0); Blood Urea Nitrogen 16 mg/dL (9-16); Calcium 9.5 mg/dL (8.4-10.2); Carbon Dioxide 28 mmol/L (22-29); Chloride 109 mmol/L (96-108); Creatinine Clr Calc Pharmacy 73.2; Estimated Glomerular Filt Rate > 60; Glucose Random 107 mg/dL (60-115); Potassium 3.1 mmol/L (3.3-5.1); Sodium 145 mmol/L (135-145); Total Protein 7.4 g/dL (6.5-8.0)
[2023-12-09 13:30] LABS: Troponin-I High Sensitivity < 2.7 ng/L (<3.5-17.0)
[2023-12-09 13:31] LABS: B Type Natriuretic Peptide 33 pg/mL (<100)
[2023-12-09 13:33] LABS: IDNOW Serial# 08D9AD1C; Strep A Nucleic Acid Negative (Negative)
[2023-12-09 14:00] LABS: Influenza A PCR NEGATIVE (Negative); Influenza B PCR NEGATIVE (Negative); Resp Syncy Virus RNA Qual PCR NEGATIVE (Negative); SARS COV2 PCR INHOUSE NEGATIVE (Negative)
== END 2023-12-09 19:03 | disposition left against medical advice (07) ==
PROVIDERS: Physician Assistant; Emergency Provider Emergency Medicine; PCP Internal Medicine Geriatric Medicine
DX: J45.51 Severe persistent asthma with (acute) exacerbation (principal); Z03.818 Encounter for observation for suspected exposure to other biological agents ruled out; R06.02 Shortness of breath; R05.9 Cough, unspecified
CPT/HCPCS: 0241U; 36415; 71045; 80053; 83880; 84484; 85025; 85610; 85730; 87651; 93005; 94640; 99284

== ENCOUNTER → 2023-12-09 11:14 | Outpatient (BNV) | payer OTHER, SELFPAY | PROVIDERS: PCP Internal Medicine Geriatric Medicine; Visit Provider Internal Medicine Cardiovascular Disease | DX: R94.31 Abnormal electrocardiogram [ECG] [EKG] (principal) | CPT/HCPCS: 93010 ==

== ENCOUNTER 2023-12-10 06:18 | Inpatient (IN) | payer OTHER, SELFPAY ==
[2023-12-10] VITALS (7 sets, daily range): BP systolic 135–147; BP diastolic 74–84; PULSE 78–93; RESP 12–20; TEMP 36.1–37.3; O2SAT 97–100; BMI 22.8
--- NOTE | ~2023-12-10 | XR_ITS ---
EXAMINATION: XR CHEST CLINICAL INFORMATION: Shortness of breath. COMPARISON: Most recent chest radiograph dated 12/09/2023. TECHNIQUE: 2 views of the chest were obtained. FINDINGS: No focal airspace consolidation. No pleural effusion or pneumothorax. Stable cardiomediastinal silhouette. Right shoulder orthopedic hardware is redemonstrated. Right upper quadrant surgical clips. XR/XR chest 2V IMPRESSION: No acute cardiopulmonary findings. Electronically signed by: Cam Vasquez MD 12/10/2023 12:32 PM EDT
[2023-12-10] MEDS: methylPREDNISolone Sod Succ 125 MG/2 ML VIAL IVPUSH (09:04)
[2023-12-10] MEDS: Magnesium Sulfate/H2O 2 GM/50 ML PIGGYBACK IV (09:05)
[2023-12-10 09:08] LABS: MANUAL DIFF FLAG NO
[2023-12-10 09:12] LABS: Basophils Absolute Auto 0.1 X10*3/uL (0.0-0.2); Basophils Percent Auto 0.6 % (0-2); Eosinophils Absolute Auto 0.1 X10*3/uL (0.0-0.4); Hematocrit 39.7 % (37.0-47.0); Hemoglobin 12.8 g/dl (12.0-16.0); Imm Gran Abs Auto 0.04 X10*3/uL (0.00-0.03); Imm Gran Pct Auto 0.4 % (0.0-0.4); Lymphocytes Absolute Auto 2.6 X10*3/uL (1.2-4.9); Lymphocytes Percent Auto 25.5 % (20-40); Mean Corpuscular HGB Conc 32.2 g/dl (31.0-35.0); Mean Corpuscular Hemoglobin 25.9 pg (27.0-33.0); Mean Corpuscular Volume 80.2 fL (80.0-98.0); Mean Platelet Volume 9.3 fL (9.4-12.3); Monocytes Absolute Auto 0.8 X10*3/uL (0.1-1.2); Monocytes Percent Auto 7.7 % (2-11); Neutrophils Absolute Auto 6.7 x10*3/uL (2.0-8.3); Neutrophils Percent Auto 64.8 % (45-73); Platelet Count 241 X10*3/uL (160-400); Red Blood Count 4.95 X10*6/uL (4.20-5.50); Red Cell Distribution Width 14.6 % (11.0-16.0); White Blood Count 10.4 X10*3/uL (4.8-10.8)
[2023-12-10 09:31] LABS: Alanine Aminotransferase 15 U/L (0-31); Albumin Level 3.9 g/dL (3.5-5.0); Alkaline Phosphatase 79 U/L (39-117); Anion Gap 9 (12-20); Aspartate Amino Transferase 15 U/L (5-31); Bilirubin Total 0.4 mg/dL (0.0-1.0); Blood Urea Nitrogen 13 mg/dL (9-16); Calcium 9.5 mg/dL (8.4-10.2); Carbon Dioxide 31 mmol/L (22-29); Chloride 107 mmol/L (96-108); Creatinine Clr Calc Pharmacy 78.4; Estimated Glomerular Filt Rate > 60; Glucose Random 81 mg/dL (60-115); Magnesium 2.1 mg/dL (1.6-2.6); Potassium 3.7 mmol/L (3.3-5.1); Sodium 143 mmol/L (135-145)
[2023-12-10] MEDS: Albuterol Sulfate 5 MG, Albuterol/Iprat 2.5/0.5MG 3 ML 3 ML INHALE (09:39)
--- NOTE | 2023-12-10 09:57 | ED_ITS ---
HPI - SOB/Dyspnea General Chief Complaint: Dyspnea Stated Complaint: Diff breathing/Wheezy Time Seen by Provider: 12/10/23 07:28 Source: patient and RN notes reviewed Mode of arrival: ambulatory Limitations: no limitations History of Present Illness ED Provider: Nicole Nj PA-C HPI Narrative: This is a 68-year-old female, with a history of allergic rhinitis and severe persistent asthma, who presents emergency department with complaints of cough, congestion x1 week. Patient states that she is followed by Dr. Valle, last seen at the beginning of October. She states that at that time she was having worsening shortness for breath and was started on a tapering dose of prednisone. She has been taking this as prescribed, last dose was yesterday however states that over the last week her shortness for breath has worsened. She has been using her nebulizer as well as albuterol at home which has provided her without any relief. She denies any fevers, chills, chest pain, abdominal pain, nausea, vomiting or diarrhea. She called Dr. Valle this morning and was instructed to come to the emergency room for further evaluation. No other complaints or concerns at this time. MD elicited complaint: shortness of breath and asthma attack Pertinent past history: asthma Timing: constant Associated symptoms: denies other symptoms Treatment prior to arrival: none Related Data Home Medications ?Medication ?Instructions ?Recorded ?Confirmed hydrochlorothiazide 12.5 mg capsule 1 cap PO DAILY 12/14/19 12/10/23 ketotifen fumarate 0.025 % (0.035 1 drp ophthalmic (eye) BID PRN 12/14/19 12/10/23 %) eye drops Allergy Symptoms lorazepam 1 mg tablet 1 tab PO BID 12/14/19 12/10/23 amitriptyline 50 mg tablet 50 mg PO BEDTIME 03/27/20 12/10/23 valsartan 80 mg tablet 80 mg PO DAILY 05/21/20 12/10/23 fluoxetine 20 mg capsule 20 mg PO DAILY 11/22/20 12/10/23 blood pressure test kit-large #1 ea 12/28/20 04/27/23 azelastine 137 mcg (0.1 %) nasal 2 spray intranasal BID yes 02/10/22 12/10/23 spray ezetimibe 10 mg tablet 10 mg PO DAILY 10/20/22 12/10/23 omeprazole 20 mg capsule,delayed 20 mg PO DAILY@0630 10/20/22 12/10/23 release pravastatin 20 mg tablet 20 mg PO DAILY 12/30/22 12/10/23 sumatriptan succinate 25 mg tablet 25 mg PO Q2H 05/29/23 12/10/23 nebulizers 07/06/23 hydroxyzine HCl 25 mg tablet 25 mg PO DAILY PRN Itchiness 11/06/23 12/10/23 losartan 50 mg tablet 50 mg PO DAILY 11/06/23 12/10/23 prednisone 10 mg tablet See Taper PO DAILY 12/10/23 12/10/23 sumatriptan succinate 25 mg tablet 25 mg PO ONCE PRN Migraine Headache 12/10/23 12/10/23 Previous Rx's ?Medication ?Instructions ?Recorded inhalational spacing device #1 ea 01/29/21 (Aerochamber MV spacer) montelukast 10 mg tablet 10 mg PO DAILY #90 tabs 01/28/23 amlodipine 10 mg tablet 10 mg PO DAILY #90 tabs 03/09/23 albuterol sulfate 90 mcg/actuation 2 puff PO Q4H PRN Wheezing #8.5 03/16/23 aerosol inhaler grams albuterol sulfate 2.5 mg/3 mL 2.5 mg (3 mL) inhalation Q6H PRN 07/06/23 (0.083 %) solution for nebulization shortness of breath or wheezing 30 days #180 mL dicyclomine 10 mg capsule 10 mg PO TID #270 caps 09/28/23 roflumilast 250 mcg tablet 250 mcg PO DAILY 30 days #30 tabs 11/06/23 (Daliresp) Allergies Allergy/AdvReac Type Severity Reaction Status Date / Time ciprofloxacin [From Cipro] Allergy Intermediate HIVES/ITCHI Verified 12/10/23 06:23 NG oxycodone [Percocet] Allergy Intermediate Hives Verified 12/10/23 06:23 Penicillins Allergy Intermediate HIVES/ITCHI Verified 12/10/23 06:23 NG simvastatin [Simvastatin] Allergy Intermediate HIVES/ITCHI Verified 12/10/23 06:23 NIG vancomycin [Vancomycin] Allergy Intermediate HIVES/ITCHI Verified 12/10/23 06:23 NG latex Allergy Mild Rash Verified 12/10/23 06:23 milnacipran [From Savella] Allergy Mild Hives Verified 12/10/23 06:23 Sulfa (Sulfonamide Allergy Mild Shortness Verified 12/10/23 06:23 Antibiotics) of Breath dupilumab [From DupixPacketSled Pen] AdvReac Intermediate neuropathy Verified 12/10/23 06:23 Review of Systems 2 Review of Systems: Yes all other systems are reviewed and are negative Constitutional: Constitutional: Reports as per [facility] Past Medical History Medical History Abnormal electrocardiogram [ECG] [EKG] Chest pain Bleeding hemorrhoids Eczema VERA positive DVT (deep venous thrombosis) Tachycardia Dyspnea Sinusitis Rash URI (upper respiratory infection) History of anesthesia problem Osteoarthritis Fibromyalgia GERD (gastroesophageal reflux disease) Cervicalgia Depression History of vertigo Varicose vein of leg Chronic pain of left knee Allergic rhinitis Anxiety Asthma Migraine Surgical History History of esophagogastroduodenoscopy (EGD) History of repair of right rotator cuff Hx of bilateral breast reduction surgery Hx of hemorrhoidectomy H/O varicose vein ligation and stripping Hx of colonoscopy Hx of hysterectomy Hx of appendectomy Hx laparoscopic cholecystectomy Status post right rotator cuff repair Family History Family History Father No problems noted. Mother Family history of high blood pressure Dementia Social History Social History Household Members: None Alcohol intake: former Patient Tobacco Use Status: Never used Tobacco Smoked in Last 30 Days: No Use of substances other than those prescribed or required for medical reasons: No Advance Directives: No Advance Directives Information Provided: Yes Advance Directives Date on File: 04/03/18 Current occupational status: unemployed Current occupation: Left Handed Physical Exam 2 Vital Signs: Vital Signs: Last Vital Signs Temp 97.9 F 12/10/23 06:21 Pulse 84 12/10/23 13:45 Resp 17 12/10/23 13:45 BP 146/84 H 12/10/23 13:45 Pulse Ox 97 12/10/23 13:45 O2 Del Method Room Air 12/10/23 13:45 BMI result Body Mass Index 22.8 Const: General: cooperative, comfortable and no acute distress O rientation/consciousness: patient oriented x3 Limitations: no limitations HEENT: Head: Yes normal to inspection, Yes normocephalic and Yes atraumatic Ears: hearing grossly normal bilaterally General nose exam: Normal external nose present Face and sinus: Yes normal facial exam Mouth: Normal oral and palatal mucosa present, oropharynx normal and moist mucous membranes Throat: Yes posterior oropharynx normal Eyes: General: appearance normal, both eyes and all related structures E yelids: Yes eyelids normal Conjunctivae: conjunctivae normal Sclerae: s clerae normal Pupils: Equal, round and reactive pupils present EOM: EOMs intact bilaterally Neck: Neck: Yes normal visual inspection, Yes full ROM and Yes no lymphadenopathy Lymphatic: no lymphadenopathy noted Chest: Chest palpation & inspection: normal inspection of the chest Resp: Other: Inspiratory and expiratory wheezes noted throughout all lung dao. Cardio: Rate: regular rate Rhythm: regular rhythm Heart sounds: S1 normal heart sound present and S2 normal heart sound present GI: Inspection: Yes normal to inspection Skin: General skin exam: no rashes or lesions noted Trauma: no lacerations or abrasions Wounds: no wounds Neuro: General: patient oriented x3 and moves all extremities Cranial nerves: Yes Equal, round and reactive pupils present Extrem: Other: No calf tenderness General: Yes normal to inspection Right upper extremity: normal to inspection Left upper extremity: normal to inspection Right lower extremity: normal to inspection Left lower extremity: normal to inspection Course Reevaluation(s) Reevaluation #1: Respiratory therapy at bedside, patient currently receiving updraft. Will continue to monitor. Time: 09:57 Reevaluation #2: Patient re-evaluated, not feeling any better, lungs with tight inspiratory and expiratory wheezes noted throughout all lung dao. Given findings, will obtain chest x-ray to ensure no acute consolidations. Patient may need to be admitted to the hospital for further management of her asthma Time: 11:22 Reevaluation #3: Patient re-evaluated, still not feeling well, she is not comfortable to be discharged home secondary to wheezing. Lungs with tight inspiratory and expiratory wheezes noted throughout all lung dao. Chest x-ray unremarkable. Will attempt to admit for asthma exacerbation Time: 13:20 Medications Administered Generic Name Dose Route Start Last Admin Trade Name Freq PRN Reason Stop Dose Admin Enoxaparin Sodium 40 mg 12/10/23 15:00 12/10/23 16:15 Enoxaparin Sodium 40 Mg/0.4 Ml Syringe SUBCUT Not Given Q24H JENN Discontinued Medications Generic Name Dose Route Start Last Admin Trade Name Kalpesh PRN Reason Stop Dose Admin Albuterol Sulfate 5 mg/ 0 mg 12/10/23 09:25 12/10/23 09:39 Albuterol/Ipratropium 3 ml INHALE 12/10/23 09:26 1 each ONCE ONE Administration Magnesium Sulfate 2 gm in 50 mls @ 150 mls/hr 12/10/23 08:25 12/10/23 10:04 Magnesium Sulfate/H2o IV 12/10/23 08:44 Infused ONCE ONE Infusion Methylprednisolone Sodium Succinate 125 mg 12/10/23 08:25 12/10/23 09:04 Methylprednisolone Sod Succ 125 Mg/2 Ml Vial IVPUSH 12/10/23 08:26 125 mg ONCE ONE Administration Medical Decision Making Medical Decision Making [facility] Narrative: This is a 68-year-old female, with a history of severe persistent asthma, and allergic rhinitis, who presents emergency department with complaints of worsening cough, shortness for breath for the last week. Patient left without completing treatment yesterday. She states that she could not wait any longer however reports that her shortness breath has only worsened. She has been using her prescribed prednisone as directed however states that continues to have shortness for breath. He has been using her albuterol inhaler as well as updrafts without any relief. On arrival, patient oxygen saturation 100% on room air. Lungs with tight inspiratory and expiratory wheezes noted throughout all lung dao with faint crackles heard in the by basilar regions. She has no lower extremity edema. Review of visit from yesterday with normal labs, normal chest x-ray, negative viral swabs. Likely acute asthma exacerbation Plan: Repeat labs, IV Solu-Medrol, magnesium, and ED bronch protocol Differential Diagnosis Differential Diagnoses: The differential diagnosis associated with the presentation includes URI, asthma exacerbation, bronchitis Lab Data [facility] Lab Attestation statement: I reviewed the patient's lab results. No leukocytosis, stable H&H, chemistry within normal limits. 12/10/23 09:03 12/10/23 09:03 Labs: Lab Results 12/10/23 Range/Units 09:03 WBC 10.4 (4.8-10.8) X10*3/uL RBC 4.95 (4.20-5.50) X10*6/uL Hgb 12.8 (12.0-16.0) g/dl Hct 39.7 (37.0-47.0) % MCV 80.2 (80.0-98.0) fL MCH 25.9 L (27.0-33.0) pg MCHC 32.2 (31.0-35.0) g/dl RDW 14.6 (11.0-16.0) % Plt Count 241 (160-400) X10*3/uL MPV 9.3 L (9.4-12.3) fL Immature Gran % (Auto) 0.4 (0.0-0.4) % Neut % (Auto) 64.8 (45-73) % Lymph % (Auto) 25.5 (20-40) % [place] % (Auto) 7.7 (2-11) % Eos % (Auto) 1.0 (0-4) % Baso % (Auto) 0.6 (0-2) % Lymph # (Auto) 2.6 (1.2-4.9) X10*3/uL [place] # (Auto) 0.8 (0.1-1.2) X10*3/uL Eos # (Auto) 0.1 (0.0-0.4) X10*3/uL Baso # (Auto) 0.1 (0.0-0.2) X10*3/uL Abs Immat Gran (auto) 0.04 H (0.00-0.03) X10*3/uL Absolute Neuts (auto) 6.7 (2.0-8.3) x10*3/uL Absolute Nucleated RBC 0.000 (0.0-0.012) X10*3/uL Nucleated RBC % (auto) 0.0 (0.0-0.2) /100WBC Sodium 143 (135-145) mmol/L Potassium 3.7 (3.3-5.1) mmol/L Chloride 107 (96-108) mmol/L Carbon Dioxide 31 H (22-29) mmol/L Anion Gap 9 L (12-20) BUN 13 (9-16) mg/dL Creatinine 0.56 (0.5-1.4) mg/dL Estim Creat Clear Calc 78.4 Estimated GFR > 60 Random Glucose 81 (60-115) mg/dL Calcium 9.5 (8.4-10.2) mg/dL Magnesium 2.1 (1.6-2.6) mg/dL Total Bilirubin 0.4 (0.0-1.0) mg/dL AST 15 (5-31) U/L ALT 15 (0-31) U/L Alkaline Phosphatase 79 (39-117) U/L Total Protein 7.0 (6.5-8.0) g/dL Albumin 3.9 (3.5-5.0) g/dL Radiology Impression Discussion of test interpretation with radiology: I have reviewed the radiologist's reading. Radiologist Impression: EXAMINATION: XR CHEST CLINICAL INFORMATION: Shortness of breath. COMPARISON: Most recent chest radiograph dated 12/09/2023. TECHNIQUE: 2 views of the chest were obtained. FINDINGS: No focal airspace consolidation. No pleural effusion or pneumothorax. Stable cardiomediastinal silhouette. Right shoulder orthopedic hardware is redemonstrated. Right upper quadrant surgical clips. XR/XR chest 2V IMPRESSION: No acute cardiopulmonary findings. Electronically signed by: Cam Vasquez MD 12/10/2023 12:32 PM EDT Dictated By: Cam Vasquez MD Signed By: <Electronically signed by Cam Vasquez MD in OV> Critical Care Time Critical Care Time Critical Care Time: Yes Total Critical Care Time: 35 Attestation: I have personally provided critical care time exclusive of time spent on separately billable procedures. Time includes review of lab data, radiology results, discussion with consultants, and monitoring for potential decompensation. Intervention performed as documented. Discharge Plan Discharge Clinical Impression: Asthma exacerbation Patient Disposition: Admitted As Inpatient
--- NOTE | 2023-12-10 11:48 | PC.NURSE ---
Patient ambulated in [facility]- 02 saturations between 96-100% on RA
--- NOTE | 2023-12-10 14:40 | PM.IMHP ---
History of Present Illness Date of Service: 12/10/23 <Niyah Alonso PA-C - Last Filed: 12/10/23 15:01> Attending physician on admission: Cheng Dias <ALEX Reyez Last Filed: 12/10/23 15:01> Chief Complaint: SOB, wheezing, asthma exacerbation <ALEX Reyez Last Filed: 12/10/23 15:01> 68-year-old female with a past medical history of severe persistent asthma, hypertension, history of C diff, history is pylori, fibromyalgia GERD, migraines, hyperlipidemia, chronic pain syndrome, and chronic diarrhea, who presented to the emergency department yesterday for shortness of breath, wheezing and asthma exacerbation. CXR, COVID/RSV/flu were negative and she left without completing treatment. To returned again today with worsening symptoms. CXR again negative. She is requiring more frequent albuterol at home. She complains of dry cough, nonproductive. Some chest pain with cough and headache. She has not had anything to eat or drink today, reason unknown given she does not have any nausea or vomiting. She was started on prednisone by her Dr. Valle about 1 week ago and reports it has not helped. <Niyah Alonso PA-C Last Filed: 12/10/23 15:01> Review of Systems Constitutional: Constitutional: Denies chills, Denies fever(s) and Reports headache(s) <ALEX Reyez Last Filed: 12/10/23 15:01> Eyes: Eyes: Denies change in vision <ALEX Reyez Last Filed: 12/10/23 15:01> ENT: Reports headache(s), Denies nasal congestion and Reports nasal discharge (yellow) <ALEX Reyez Last Filed: 12/10/23 15:01> Cardiovascular: Cardiovascular: Reports as per HPI, Denies rapid heart rate, Denies leg edema and Reports dyspnea <ALEX Reyez Last Filed: 12/10/23 15:01> Respiratory: Respiratory: Reports cough, Denies hemoptysis, Reports dyspnea and Reports wheezing <ALEX Reyez Last Filed: 12/10/23 15:01> Gastrointestinal: Gastrointestinal: Denies constipation, Denies diarrhea, Denies nausea and Denies vomiting <Niyah Alonso PA-C Last Filed: 12/10/23 15:01> Genitourinary: Genitourinary: Denies dysuria <Niyah Alonso PA-C Last Filed: 12/10/23 15:01> Musculoskeletal: Musculoskeletal: Denies myalgias <Niyah Alonso PA-C Last Filed: 12/10/23 15:01> Integumentary/Breasts: Skin/Breast: Denies rash <Niyah Alonso PA-C Last Filed: 12/10/23 15:01> Neurologic: Denies confusion and Reports headache(s) <Niyah Alonso PA-C Filed: 12/10/23 15:01> Psychiatric: Psychiatric: Denies confusion <Niyah Alonso PA-C Filed: 12/10/23 15:01> Allergic/Immunologic: Allergic/Immunologic: Reports wheezing <Niyah Alonso PA-C Last Filed: 12/10/23 15:01> [facility] Medical History: Medical History Abnormal electrocardiogram [ECG] [EKG] Chest pain Bleeding hemorrhoids Eczema VERA positive DVT (deep venous thrombosis) Tachycardia Dyspnea Sinusitis Rash URI (upper respiratory infection) History of anesthesia problem Osteoarthritis Fibromyalgia GERD (gastroesophageal reflux disease) Cervicalgia Depression History of vertigo Varicose vein of leg Chronic pain of left knee Allergic rhinitis Anxiety Asthma Migraine <Niyah Alonso PA-C Last Filed: 12/10/23 15:01> Functional capacity: independent ambulation <ALEX Reyez Last Filed: 12/10/23 15:01> Family History: Family History Father No problems noted. Mother Family history of high blood pressure Dementia <ALEX Reyez Last Filed: 12/10/23 15:01> Surgical History: Surgical History History of esophagogastroduodenoscopy (EGD) History of repair of right rotator cuff Hx of bilateral breast reduction surgery Hx of hemorrhoidectomy H/O varicose vein ligation and stripping Hx of colonoscopy Hx of hysterectomy Hx of appendectomy Hx laparoscopic cholecystectomy Status post right rotator cuff repair <Niyah Alonso PA-C - Last Filed: 12/10/23 15:01> Social History: Social History Household Members: None Housing: Apartment Do you presently have visiting nurse or other home services: No Alcohol intake: former Patient Tobacco Use Status: Never used Tobacco Smoked in Last 30 Days: No Patient Interested in Nicotine Replacement: No Patient Given Instructions on How to Stop Smoking: No Second Hand Smoke Exposure: No Use of substances other than those prescribed or required for medical reasons: No Currently Displaying Signs/Symptoms of Drug Intoxication Withdrawal: No Any prior treatment program specific to substance use: No Have you been hit, kicked, punched, or otherwise hurt by someone within the past year? If so, by whom?: No Do you feel safe in your current relationship?: No Current Relationship Is there a partner from a previous relationship who is making you feel unsafe now?: No Are you made to feel afraid or neglected: No Advance Directives: No Advance Directives Information Provided: Yes Advance Directives on File: No Advance Directives Date on File: 04/03/18 Do you have a plan to hurt others: No Plan Recently lost weight without trying: No Eating poorly because of decreased appetite: No Nutrition Risks: No Nutritional Risk Patient : No : No Poor oral hygiene: No service: No Current occupational status: unemployed Current occupation: Left Handed <Niyah Alonso PA-C - Last Filed: 12/10/23 15:01> Meds Allergies/Adverse reactions: Allergies Allergy/AdvReac Type Severity Reaction Status Date / Time ciprofloxacin [From Cipro] Allergy Intermediate HIVES/ITCHI Verified 12/10/23 06:23 NG oxycodone [Percocet] Allergy Intermediate Hives Verified 12/10/23 06:23 Penicillins Allergy Intermediate HIVES/ITCHI Verified 12/10/23 06:23 NG simvastatin [Simvastatin] Allergy Intermediate HIVES/ITCHI Verified 12/10/23 06:23 NIG vancomycin [Vancomycin] Allergy Intermediate HIVES/ITCHI Verified 12/10/23 06:23 NG latex Allergy Mild Rash Verified 12/10/23 06:23 milnacipran [From Savella] Allergy Mild Hives Verified 12/10/23 06:23 Sulfa (Sulfonamide Allergy Mild Shortness Verified 12/10/23 06:23 Antibiotics) of Breath dupilumab [From Dupixent Pen] AdvReac Intermediate neuropathy Verified 12/10/23 06:23 <Niyah Alonso PA-C - Last Filed: 12/10/23 15:01> Home medications: Home Medications ?Medication ?Instructions ?Recorded ?Confirmed ?Last Taken ?Type hydrochlorothiazide 12.5 mg capsule 1 cap PO DAILY 12/14/19 12/10/23 01/25/20 06:30 History ketotifen fumarate 0.025 % (0.035 1 drp ophthalmic (eye) BID PRN 12/14/19 12/10/23 Unknown History %) eye drops Allergy Symptoms lorazepam 1 mg tablet 1 tab PO BID 12/14/19 12/10/23 01/25/20 06:30 History amitriptyline 50 mg tablet 50 mg PO BEDTIME 03/27/20 12/10/23 Unknown History valsartan 80 mg tablet 80 mg PO DAILY 05/21/20 12/10/23 Unknown History fluoxetine 20 mg capsule 20 mg PO DAILY 11/22/20 12/10/23 Unknown History blood pressure test kit-large #1 ea 12/28/20 04/27/23 Unknown History azelastine 137 mcg (0.1 %) nasal 2 spray intranasal BID yes 02/10/22 12/10/23 Unknown History spray ezetimibe 10 mg tablet 10 mg PO DAILY 10/20/22 12/10/23 Unknown History omeprazole 20 mg capsule,delayed 20 mg PO DAILY@0630 10/20/22 12/10/23 Unknown History release pravastatin 20 mg tablet 20 mg PO DAILY 12/30/22 12/10/23 Unknown History sumatriptan succinate 25 mg tablet 25 mg PO Q2H 05/29/23 12/10/23 Unknown History nebulizers 07/06/23 Unknown History hydroxyzine HCl 25 mg tablet 25 mg PO DAILY PRN Itchiness 11/06/23 12/10/23 Unknown History losartan 50 mg tablet 50 mg PO DAILY 11/06/23 12/10/23 Unknown History prednisone 10 mg tablet See Taper PO DAILY 12/10/23 12/10/23 Unknown History sumatriptan succinate 25 mg tablet 25 mg PO ONCE PRN Migraine Headache 12/10/23 12/10/23 Unknown History <ALEX Reyez Last Filed: 12/10/23 15:01> Physical Exam Vital Signs and Narrative: Vital Signs: Last Vital Signs Temp 97.9 F 12/10/23 06:21 Pulse 84 12/10/23 13:45 Resp 17 12/10/23 13:45 BP 146/84 H 12/10/23 13:45 Pulse Ox 97 12/10/23 13:45 O2 Del Method Room Air 12/10/23 13:45 BMI result Body Mass Index 22.8 <ALEX Reyez Last Filed: 12/10/23 15:01> General: AOx3, no acute distress, pt sitting comfortably on stretcher on the phone when I arrived, no respiratory distress Resp: wheezing throughout with expiration, minimal wheezing with inspiration, no use of accessory muscles or work of breathing CVS: S1, S2, RRR GI: +BS, NT, no distention Skin: Warm, dry Extremities: No edema Psych: Appropriate affect <ALEX Reyez Last Filed: 12/10/23 15:01> Const: General: No confusion <ALEX Reyez Last Filed: 12/10/23 15:01> Orientation/consciousness: No confusion <ALEX Reyez Last Filed: 12/10/23 15:01> Neuro: General: No confusion <ALEX Reyez Last Filed: 12/10/23 15:01> Results Labs CBC and Chem 7: 12/11/23 05:26 12/11/23 05:26 <ALEX Reyez Last Filed: 12/10/23 15:01> Labs: Laboratory Results - last 24 hr 12/10/23 09:03 MCV 80.2 MCH 25.9 L MCHC 32.2 RDW 14.6 Plt Count 241 MPV 9.3 L Immature Gran % (Auto) 0.4 Neut % (Auto) 64.8 Lymph % (Auto) 25.5 Bond % (Auto) 7.7 Eos % (Auto) 1.0 Baso % (Auto) 0.6 Lymph # (Auto) 2.6 Bond # (Auto) 0.8 Eos # (Auto) 0.1 Baso # (Auto) 0.1 Abs Immat Gran (auto) 0.04 H Absolute Neuts (auto) 6.7 Absolute Nucleated RBC 0.000 Nucleated RBC % (auto) 0.0 Anion Gap 9 L Estim Creat Clear Calc 78.4 Estimated GFR > 60 Random Glucose 81 Calcium 9.5 Magnesium 2.1 Total Bilirubin 0.4 AST 15 ALT 15 Alkaline Phosphatase 79 Total Protein 7.0 Albumin 3.9 <Niyah Alonso PA-C - Last Filed: 12/10/23 15:01> Imaging Radiologist's Impressions: Impressions Chest X-Ray 12/10/23 11:25 IMPRESSION: No acute cardiopulmonary findings. Electronically signed by: Cam Vasquez MD 12/10/2023 12:32 PM EDT RP <Niyah Alonso PA-C - Last Filed: 12/10/23 15:01> Assessment and Plan (1) Asthma exacerbation: Status: Acute <ALEX Reyez Last Filed: 12/10/23 15:01> 68-year-old female with a past medical history of severe persistent asthma, hypertension, history of C diff, history is pylori, fibromyalgia GERD, migraines, hyperlipidemia, chronic pain syndrome, and chronic diarrhea, who presented to the emergency department yesterday for shortness of breath, wheezing and asthma exacerbation. CXR, COVID/RSV/flu were negative and she left without completing treatment. To returned again today with worsening symptoms. CXR again negative. WBC normal x2. given IV mag, solumedrol and duoneb in ED. acute asthma exacerbation - CXR x2 days neg, no leukocytosis, flu/RSV/COVID negative, vitals stable - continue duonebs Q4H while awake, solumedrol and albuterol Q2H PRN - continue home maintenance inhalers - check CBC, CMP tomorrow HTN - baseline poor control per pt - continue amlodipine, hydrochlorothiazide, losartan, valsartan GERD - continue omeprazole and sucralfate HLD - continue ezetimibe and pravastatin Full code VT prophylaxis: Pneumoboots and Lovenox Pt with acute asthma exacerbation with failed outpatient treatment and risk factors including severe persistent asthma with previous history of intubation requiring admission for at least 2 midnight stay for breathing treatments and observation. <Niyah Alonso PA-C - Last Filed: 12/10/23 15:01> 68-year-old female with a past medical history of severe persistent asthma, hypertension, history of C diff, history is pylori, fibromyalgia GERD, migraines, hyperlipidemia, chronic pain syndrome, and chronic diarrhea, who presented to the emergency department yesterday for shortness of breath, wheezing and asthma exacerbation. CXR, COVID/RSV/flu were negative and she left without completing treatment. To returned again today with worsening symptoms. CXR again negative. WBC normal x2. given IV mag, solumedrol and duoneb in ED. acute asthma exacerbation - CXR x2 days neg, no leukocytosis, flu/RSV/COVID negative, vitals stable - continue duonebs Q4H while awake, solumedrol and albuterol Q2H PRN - continue home maintenance inhalers - check CBC, CMP tomorrow HTN - baseline poor control per pt - continue amlodipine, hydrochlorothiazide, losartan, valsartan GERD - continue omeprazole and sucralfate HLD - continue ezetimibe and pravastatin Full code VT prophylaxis: Pneumoboots and Lovenox Pt with acute asthma exacerbation with failed outpatient treatment and risk factors including severe persistent asthma with previous history of intubation requiring admission for at least 2 midnight stay for breathing treatments and observation. Addendum to history and physical by the advanced practice provider, Ivory Alonso I interviewed and examined the patient. I discussed their presentation and management with the SAVAGE. I reviewed the history and physical and agree with the documentation, with the following additions and corrections: 68yo F with severe persistent asthma, HTN presenting with 1 wk of worsening cough, congestion, wheezing, and dyspnea Flu/RSV/Covid negative, CXR without PNA Plan admit to medical-surgical unit, give Solu-medrol + nebs, continue home inhalers continue all other meds for HTN, HLD< GERD <Cheng Dias MD - Last Filed: 12/11/23 12:16> Quality Stroke Does the patient have a stroke diagnosis?: No <Niyah Alonso PA-C - Last Filed: 12/10/23 15:01> VTE Prior VTE?: Yes <Niyah Alonso PA-C - Last Filed: 12/10/23 15:01> VTE Risk Level:: Medical - moderate - high <Niyah Alonso PA-C - Last Filed: 12/10/23 15:01> VTE Device Contraindication: N/A - Device Ordered <Niyah Alonso PA-C - Last Filed: 12/10/23 15:01> VTE Drug Contraindication: N/A - Med Ordered <Niyah Alonso PA-C - Last Filed: 12/10/23 15:01>
--- NOTE | 2023-12-10 15:32 | PHA.MEDREC ---
Addendum entered by Popeye Nash 12/10/23 15:48: REviewed Original Note: Pharmacy Consult ? Medication Reconciliation Pharmacy has completed the medication reconciliation. Spoke with patient with coke inspector and patient was confused on what medications she was taking after confirming some and then after asking asking what she was taking I was only able to confirm Albuterol nebulization soultion 3ml Q6H prn and an albuterol inhaler 2 puffs Q4H prn, Amitriptyline 50mg 1 tab at bedtime, Amlodipine 10mg 1 tab daily, I asked her if she takes any Nasal Sprays and patient confirmed yes but was not sure the name and I asked if it started with an A called Azelastine and patient was not 100% but looking in claims it was filled 10/27 for 90 days. She was able to confirmed Loazepam 0.5mg tabs 1 tab BID for her anxiety and Valsartan 80mg which she confirmed she took this morning. She was not able to confirm anymore and stated she lives alone and has no one we can call and confirm with , patient was not sure if she started the Prednisone 10mg taper regimen but knows she got stuff from the pharmacy in the last few days; I called [facility] and they confirmed the Prednisone 10mg regimen was given to her yesterday and they were able to confirm with me how the patient takes Sumatriptan 25mg tabs 1 tab once as needed for migraines and may repeat 2 hours after as needed. I utilized claims for the rest of the medication list.
[2023-12-10] MEDS: Albuterol/Iprat 2.5/0.5MG 3 ML AMPUL.NEB INHALE ×2 (17:10→19:36)
[2023-12-10] MEDS: 0.9 % Sodium Chloride Flush 3 ML SYRINGE IVFLUSH ×2 (17:14→21:43)
[2023-12-10] MEDS: LORazepam 1 MG TABLET PO (21:41)
--- NOTE | 2023-12-10 22:40 | PC.NURSE ---
Pt deemed high fall risk due to recent fall within the last 6 months, Pt steady on feet and refusing bed and chair alarms, Pt educated to use call mendiola for help ambulating.
[2023-12-10] MEDS: Albuterol Sulfate 90 MCG 8 GM INHALER 2 PUFF INHALE (23:02)
[2023-12-11] VITALS (8 sets, daily range): BP systolic 105–152; BP diastolic 56–82; PULSE 60–99; RESP 14–16; TEMP 36.1–36.8; O2SAT 95–100
[2023-12-11 06:22] LABS: MANUAL DIFF FLAG NO
[2023-12-11 06:43] LABS: Basophils Percent Auto 0.2 % (0-2); Eosinophils Percent Auto 0.1 % (0-4); Hematocrit 36.8 % (37.0-47.0); Hemoglobin 11.8 g/dl (12.0-16.0); Imm Gran Abs Auto 0.07 X10*3/uL (0.00-0.03); Imm Gran Pct Auto 0.6 % (0.0-0.4); Lymphocytes Absolute Auto 2.1 X10*3/uL (1.2-4.9); Lymphocytes Percent Auto 18.7 % (20-40); Mean Corpuscular HGB Conc 32.1 g/dl (31.0-35.0); Mean Corpuscular Hemoglobin 25.8 pg (27.0-33.0); Mean Corpuscular Volume 80.3 fL (80.0-98.0); Mean Platelet Volume 9.8 fL (9.4-12.3); Monocytes Absolute Auto 0.9 X10*3/uL (0.1-1.2); Monocytes Percent Auto 7.7 % (2-11); Neutrophils Percent Auto 72.7 % (45-73); Platelet Count 266 X10*3/uL (160-400); Red Blood Count 4.58 X10*6/uL (4.20-5.50); Red Cell Distribution Width 14.6 % (11.0-16.0)
[2023-12-11 06:47] LABS: Anion Gap 12 (12-20); Blood Urea Nitrogen 13 mg/dL (9-16); Calcium 9.5 mg/dL (8.4-10.2); Carbon Dioxide 28 mmol/L (22-29); Chloride 107 mmol/L (96-108); Estimated Glomerular Filt Rate > 60; Glucose Random 105 mg/dL (60-115); Potassium 3.9 mmol/L (3.3-5.1); Sodium 143 mmol/L (135-145)
[2023-12-11] MEDS: Albuterol/Iprat 2.5/0.5MG 3 ML AMPUL.NEB INHALE ×4 (07:26→19:18)
[2023-12-11] MEDS: 0.9 % Sodium Chloride Flush 3 ML SYRINGE IVFLUSH ×3 (08:55→21:17)
[2023-12-11] MEDS: methylPREDNISolone Sod Succ 40 MG/ML VIAL IVPUSH (08:56)
--- NOTE | 2023-12-11 09:21 | MHC.CM.PN ---
IMM DELIVERED PT LIVES ALONE. PT USES [facility] FOR [employer] MOB[employer]. PT HAS 25 HRS/WK [employer]IST VIA [employer]. +HCP, PT BELIEVES WE HAVE A COPY HERE, CM WILL SEEK. DECLINES TO DO A NEW ONE. PCP DR. NEUMANN AT [facility]. DP: HOME WITH RESUMPTION OF E[employer]RICAL PANEL BU[employer]DER SERVICES IS THE GOAL. PT HAS OWN RIDE HOME. CM WILL CONTINUE TO FOLLOW FOR ANY CHANGE TO DC PLAN/NEEDS.
[2023-12-11] MEDS: LORazepam 1 MG TABLET PO ×2 (09:29→21:15)
--- NOTE | 2023-12-11 12:16 | P.PNIM_ITS ---
Subjective Subjective Date of Service: 12/11/23 Interval History: still wheezing + dyspneic + coughing, no sputum no fever This history was taken in Sami from the patient. Review of Systems Review of Systems: Yes all other systems are reviewed and are negative Physical Exam 2 Vital Signs: Vital Signs: Last Vital Signs Temp 97.3 F 12/11/23 07:27 Pulse 65 12/11/23 11:12 Resp 16 12/11/23 11:12 BP 152/82 H 12/11/23 07:27 Pulse Ox 100 12/11/23 07:27 O2 Del Method Room Air 12/11/23 07:27 BMI result Body Mass Index 22.8 Gen: in no acute distress HEENT: sclera anicteric, moist mucus membranes Neck: supple Lungs: diffuse expiratory and inspiratory wheezing Heart: regular rate and rhythm, no murmurs Abd: soft, non-tender, non-distended Ext: no edema Skin: warm/well-perfused Neuro: alert and oriented x3, no focal findings Psych: appropriate affect Objective Data Active Medications Acetaminophen (Acetaminophen 325 Mg Tablet) 650 mg PO Q6H PRN PRN Reason: Pain, Mild (Pain Scale 1-3), fever or headache Albuterol Sulfate (Albuterol Sulfate 90 Mcg 8 Gm Inhaler) 2 puff INHALE Q2H PRN PRN Reason: Shortness of Breath/Wheezing Last Admin: 12/10/23 23:02 Dose: 2 puff Documented By: MATTHEW Albuterol/Ipratropium (Albuterol/Iprat 2.5/0.5mg 3 Ml Ampul.Neb) 3 ml INHALE RQ4H WHILE AWAKE [facility] Last Admin: 12/11/23 11:12 Dose: 3 ml Documented By: YSABEL Amitriptyline HCl (Amitriptyline Hcl 50 Mg Tablet) 50 mg PO BEDTIME [facility] Amlodipine Besylate (Amlodipine Besylate 10 Mg Tablet) 10 mg PO DAILY [facility]; Protocol Last Admin: 12/11/23 09:21 Dose: Not Given Documented By: COREY Non-Admin Reason: Patient Refused Azelastine HCl (Azelastine Hcl Nasal 137 Mcg/Caldwell 30 Ml) 2 spray NOSTRIL-B BID [facility] Last Admin: 12/11/23 09:21 Dose: Not Given Documented By: COREY Non-Admin Reason: Patient Refused Calcium Carbonate (Calcium Carbonate 750 Mg Tab.Chew) 750 mg PO Q4H PRN PRN Reason: Heartburn Dicyclomine HCl (Dicyclomine Hcl 10 Mg Capsule) 10 mg PO TID [facility] Last Admin: 12/11/23 09:13 Dose: Not Given Documented By: COREY Non-Admin Reason: Patient Refused Ezetimibe (Ezetimibe 10 Mg Tablet) 10 mg PO DAILY [facility] Last Admin: 12/11/23 09:21 Dose: Not Given Documented By: COREY Non-Admin Reason: Patient Refused Enoxaparin Sodium (Enoxaparin Sodium 40 Mg/0.4 Ml Syringe) 40 mg SUBCUT Q24H [facility] [place] Last Admin: 12/10/23 16:15 Dose: Not Given Documented By: ALYSSA Non-Admin Reason: Patient Refused Fluoxetine HCl (Fluoxetine Hcl 20 Mg Capsule) 20 mg PO DAILY [facility] Last Admin: 12/11/23 09:21 Dose: Not Given Documented By: COREY Non-Admin Reason: Patient Refused Hydrochlorothiazide (Hydrochlorothiazide 12.5 Mg Tablet) 12.5 mg PO DAILY [facility]; Protocol Last Admin: 12/11/23 09:22 Dose: Not Given Documented By: COREY Non-Admin Reason: Patient Refused Hydroxyzine HCl (Hydroxyzine Hcl 25 Mg Tablet) 25 mg PO DAILY PRN PRN Reason: Itchiness Ketotifen Fumarate (Ketotifen Fumarate 0.025% Oph 5 Ml Drpbtl) 1 drop EYE-BOTH BID PRN PRN Reason: Allergy Symptoms Lorazepam (Lorazepam 1 Mg Tablet) 1 mg PO BID [facility] Last Admin: 12/11/23 09:29 Dose: 1 mg Documented By: COREY Magnesium Hydroxide (Milk Of Magnesia 30 Ml Oral.Susp) 30 ml PO DAILY PRN PRN Reason: Constipation Melatonin (Melatonin 3 Mg Tablet) 6 mg PO BEDTIME PRN PRN Reason: Insomnia Methylprednisolone Sodium Succinate (Methylprednisolone Sod Succ 40 Mg/Ml Vial) 40 mg IVPUSH Q24H [facility] [place] Last Admin: 12/11/23 08:56 Dose: 40 mg Documented By: COREY Montelukast Sodium (Montelukast Sodium 10 Mg Tablet) 10 mg PO DAILY [facility] Last Admin: 12/11/23 09:22 Dose: Not Given Documented By: COREY Non-Admin Reason: Patient Refused Omeprazole (Omeprazole 20 Mg Capsule.) 20 mg PO DAILY@0630 [facility] Last Admin: 12/11/23 09:21 Dose: Not Given Documented By: COREY Non-Admin Reason: Patient Refused Pravastatin Sodium (Pravastatin Sodium 20 Mg Tablet) 20 mg PO DAILY [facility] Last Admin: 12/11/23 09:22 Dose: Not Given Documented By: COREY Non-Admin Reason: Patient Refused Roflumilast (Roflumilast 500 Mcg Tablet) 250 mcg PO DAILY [facility] Last Admin: 12/11/23 09:22 Dose: Not Given Documented By: COREY Non-Admin Reason: Patient Refused Sodium Chloride (0.9 % Sodium Chloride Flush 3 Ml Syringe) 3 ml IVFLUSH QSHIFT [facility] [place] Last Admin: 12/11/23 08:55 Dose: 3 ml Documented By: COREY Sumatriptan Succinate (Sumatriptan Succinate 25 Mg Tablet) 25 mg PO DAILY MRX1 PRN PRN Reason: Migraine Headache Valsartan (Valsartan 80 Mg Tablet) 80 mg PO DAILY [facility]; Protocol Last Admin: 12/11/23 09:31 Dose: Not Given Documented By: COREY Non-Admin Reason: Patient Refused Labs 12/11/23 05:26 12/11/23 05:26 Labs: Laboratory Results - last 24 hr 12/11/23 05:26 MCV 80.3 MCH 25.8 L MCHC 32.1 RDW 14.6 Plt Count 266 MPV 9.8 Immature Gran % (Auto) 0.6 H Neut % (Auto) 72.7 Lymph % (Auto) 18.7 L [place] % (Auto) 7.7 Eos % (Auto) 0.1 Baso % (Auto) 0.2 Lymph # (Auto) 2.1 [place] # (Auto) 0.9 Eos # (Auto) 0.0 Baso # (Auto) 0.0 Abs Immat Gran (auto) 0.07 H Absolute Neuts (auto) 8.0 Absolute Nucleated RBC 0.000 Nucleated RBC % (auto) 0.0 Anion Gap 12 Estim Creat Clear Calc 72.0 Estimated GFR > 60 Random Glucose 105 Calcium 9.5 Assessment and Plan (1) Asthma exacerbation: Status: Acute Plan d2 68yo F with severe persistent asthma admitted for acute exacerbation acute exacerbation of severe persistent asthma - continue IV methylprednisolone, standing/prn nebs, roflumilast, montelukast, Rx controller inhaler upon discharge chronic issues: HTN- valsartan, HCTZ, amlodipine HLD- pravastatin, ezetimibe migraines- prn sumatriptan mood disorder- lorazepam, fluoxetine fibromyalgia- amitriptylline VTE ppx- enoxaparin dispo- eventual home In my clinical judgment, the patient requires continued inpatient hospitalization for the following reasons: wheezing Total time managing care of this patient today: 35 minutes. Quality Stroke Does the patient have a stroke diagnosis?: No VTE Prior VTE?: Yes VTE Risk Level:: Medical - moderate - high VTE Device Contraindication: N/A - Device Ordered VTE Drug Contraindication: N/A - Med Ordered
[2023-12-11] MEDS: Enoxaparin Sodium 40 MG/0.4 ML SYRINGE SUBCUT (15:35)
[2023-12-12] VITALS (9 sets, daily range): BP systolic 121–169; BP diastolic 64–88; PULSE 71–100; RESP 16–20; TEMP 36.3–36.6; O2SAT 97–100
[2023-12-12] MEDS: amLODIPine Besylate 10 MG TABLET PO (03:45)
[2023-12-12] MEDS: Valsartan 80 MG TABLET PO (03:45)
--- NOTE | 2023-12-12 06:07 | PC.NURSE ---
Late entry: While the pt was getting her morning vital signs done, pt became agitated, demanding to take her BP medications early when its JENN for 9AM, see APR. Pt's BP was slightly elevated 156/88 during this time. Pt was educated by this RN and nursing ramp supervisor about why her BP medications was JENN for later in the AM. Pt refused to listen and demanded to take her BP medications now. This RN notified MD Kendrick of the situation and was okay to give the pt's BP medications early. Afterwards, pt was calm when she took her medications and went back to rest in bed. Will continue to monitor.
[2023-12-12] MEDS: Albuterol/Iprat 2.5/0.5MG 3 ML AMPUL.NEB INHALE ×4 (07:40→19:28)
[2023-12-12] MEDS: methylPREDNISolone Sod Succ 40 MG/ML VIAL IVPUSH (10:02)
[2023-12-12] MEDS: Dicyclomine HCl 10 MG CAPSULE PO ×2 (10:02→15:51)
[2023-12-12] MEDS: Roflumilast 500 MCG TABLET 250 MCG PO (10:02)
[2023-12-12] MEDS: LORazepam 1 MG TABLET PO ×2 (10:02→21:51)
[2023-12-12] MEDS: hydroCHLOROthiazide 12.5 MG TABLET PO (10:04)
[2023-12-12] MEDS: 0.9 % Sodium Chloride Flush 3 ML SYRINGE IVFLUSH ×3 (10:08→21:52)
--- NOTE | 2023-12-12 11:38 | P.PNIM_ITS ---
Subjective Subjective Date of Service: 12/12/23 Interval History: This history was taken in Romansh from the patient. Still having extensive wheezing + dyspnea Dry cough Review of Systems Review of Systems: Yes all other systems are reviewed and are negative Physical Exam 2 Vital Signs: Vital Signs: Last Vital Signs Temp 97.3 F 12/12/23 03:16 Pulse 100 12/12/23 11:28 Resp 18 12/12/23 11:28 BP 169/82 H 12/12/23 07:28 Pulse Ox 98 12/12/23 07:28 O2 Del Method Room Air 12/12/23 07:28 BMI result Body Mass Index 22.8 Gen: in no acute distress HEENT: sclera anicteric, moist mucus membranes Neck: supple Lungs: diffuse expiratory and inspiratory wheezing Heart: regular rate and rhythm, no murmurs Abd: soft, non-tender, non-distended Ext: no edema Skin: warm/well-perfused Neuro: alert and oriented x3, no focal findings Psych: appropriate affect Objective Data Active Medications Acetaminophen (Acetaminophen 325 Mg Tablet) 650 mg PO Q6H PRN PRN Reason: Pain, Mild (Pain Scale 1-3), fever or headache Albuterol Sulfate (Albuterol Sulfate 90 Mcg 8 Gm Inhaler) 2 puff INHALE Q2H PRN PRN Reason: Shortness of Breath/Wheezing Last Admin: 12/10/23 23:02 Dose: 2 puff Documented By: MATTHEW Albuterol/Ipratropium (Albuterol/Iprat 2.5/0.5mg 3 Ml Ampul.Neb) 3 ml INHALE RQ4H WHILE AWAKE [facility] Last Admin: 12/12/23 11:25 Dose: 3 ml Documented By: SARA Amitriptyline HCl (Amitriptyline Hcl 50 Mg Tablet) 50 mg PO BEDTIME [facility] Last Admin: 12/11/23 21:16 Dose: Not Given Documented By: AUGIE Non-Admin Reason: Patient Refused Amlodipine Besylate (Amlodipine Besylate 10 Mg Tablet) 10 mg PO DAILY [facility]; Protocol Last Admin: 12/12/23 03:45 Dose: 10 mg Documented By: AGUIE Comments: MD Aroldo anna to give early Azelastine HCl (Azelastine Hcl Nasal 137 Mcg/[place] 30 Ml) 2 spray NOSTRIL-B BID [facility] Last Admin: 12/12/23 10:08 Dose: Not Given Documented By: TALIB Non-Admin Reason: Patient Refused Calcium Carbonate (Calcium Carbonate 750 Mg Tab.Chew) 750 mg PO Q4H PRN PRN Reason: Heartburn Dicyclomine HCl (Dicyclomine Hcl 10 Mg Capsule) 10 mg PO TID [facility] Last Admin: 12/12/23 10:02 Dose: 10 mg Documented By: TALIB Ezetimibe (Ezetimibe 10 Mg Tablet) 10 mg PO DAILY [facility] Last Admin: 12/12/23 10:08 Dose: Not Given Documented By: TALIB Non-Admin Reason: Patient Refused Enoxaparin Sodium (Enoxaparin Sodium 40 Mg/0.4 Ml Syringe) 40 mg SUBCUT Q24H [facility] Last Admin: 12/11/23 15:35 Dose: 40 mg Documented By: COREY Fluoxetine HCl (Fluoxetine Hcl 20 Mg Capsule) 20 mg PO DAILY [facility] Last Admin: 12/12/23 10:08 Dose: Not Given Documented By: TALIB Non-Admin Reason: Patient Refused Hydrochlorothiazide (Hydrochlorothiazide 12.5 Mg Tablet) 12.5 mg PO DAILY [facility]; Protocol Last Admin: 12/12/23 10:04 Dose: 12.5 mg Documented By: TALIB Hydroxyzine HCl (Hydroxyzine Hcl 25 Mg Tablet) 25 mg PO DAILY PRN PRN Reason: Itchiness Ketotifen Fumarate (Ketotifen Fumarate 0.025% Oph 5 Ml Drpbtl) 1 drop EYE-BOTH BID PRN PRN Reason: Allergy Symptoms Lorazepam (Lorazepam 1 Mg Tablet) 1 mg PO BID [facility] Last Admin: 12/12/23 10:02 Dose: 1 mg Documented By: TALIB Magnesium Hydroxide (Milk Of Magnesia 30 Ml Oral.Susp) 30 ml PO DAILY PRN PRN Reason: Constipation Melatonin (Melatonin 3 Mg Tablet) 6 mg PO BEDTIME PRN PRN Reason: Insomnia Methylprednisolone Sodium Succinate (Methylprednisolone Sod Succ 40 Mg/Ml Vial) 40 mg IVPUSH Q24H [facility] Last Admin: 12/12/23 10:02 Dose: 40 mg Documented By: TALIB Montelukast Sodium (Montelukast Sodium 10 Mg Tablet) 10 mg PO DAILY [facility] Last Admin: 12/12/23 10:08 Dose: Not Given Documented By: TALIB Non-Admin Reason: Patient Refused Omeprazole (Omeprazole 20 Mg Capsule.) 20 mg PO DAILY@0630 [facility] Last Admin: 12/12/23 06:06 Dose: Not Given Documented By: AUGIE Non-Admin Reason: Patient Refused Pravastatin Sodium (Pravastatin Sodium 20 Mg Tablet) 20 mg PO DAILY [facility] Last Admin: 12/12/23 10:08 Dose: Not Given Documented By: TALIB Non-Admin Reason: Patient Refused Roflumilast (Roflumilast 500 Mcg Tablet) 250 mcg PO DAILY [facility] Last Admin: 12/12/23 10:02 Dose: 250 mcg Documented By: TALIB Sodium Chloride (0.9 % Sodium Chloride Flush 3 Ml Syringe) 3 ml IVFLUSH QSHIFT [facility] Last Admin: 12/12/23 10:08 Dose: 3 ml Documented By: TALIB Sumatriptan Succinate (Sumatriptan Succinate 25 Mg Tablet) 25 mg PO DAILY MRX1 PRN PRN Reason: Migraine Headache Valsartan (Valsartan 80 Mg Tablet) 80 mg PO DAILY [facility]; Protocol Last Admin: 12/12/23 03:45 Dose: 80 mg Documented By: AUGIE Comments: MD Aroldo anna to give early Labs 12/11/23 05:26 12/11/23 05:26 Assessment and Plan (1) Asthma exacerbation: Status: Acute Plan d3 68yo F with severe persistent asthma admitted for acute exacerbation acute exacerbation of severe persistent asthma - continue IV methylprednisolone, standing/prn nebs, roflumilast, montelukast, Rx controller inhaler upon discharge chronic issues: HTN- valsartan, HCTZ, amlodipine HLD- pravastatin, ezetimibe migraines- prn sumatriptan mood disorder- lorazepam, fluoxetine fibromyalgia- amitriptylline VTE ppx- enoxaparin dispo- eventual home In my clinical judgment, the patient requires continued inpatient hospitalization for the following reasons: wheezing, dyspnea Total time managing care of this patient today: 35 minutes. Quality Stroke Does the patient have a stroke diagnosis?: No VTE Prior VTE?: Yes VTE Risk Level:: Medical - moderate - high VTE Device Contraindication: N/A - Device Ordered VTE Drug Contraindication: N/A - Med Ordered
[2023-12-12] MEDS: Enoxaparin Sodium 40 MG/0.4 ML SYRINGE SUBCUT (15:51)
[2023-12-13] VITALS (9 sets, daily range): BP systolic 124–178; BP diastolic 70–90; PULSE 76–90; RESP 16–18; TEMP 36.1–36.3; O2SAT 96–100
[2023-12-13] MEDS: amLODIPine Besylate 10 MG TABLET PO (04:08)
[2023-12-13] MEDS: Valsartan 80 MG TABLET PO (04:08)
--- NOTE | 2023-12-13 04:23 | PC.NURSE ---
Elevated BP 178/90, pt demanding to take JENN BP medications Norvasc & Valsartan earlier instead at 9AM. MD Kendrick notified of the situation and okay to give the JENN BP medications early. See MAR for administration time.
[2023-12-13] MEDS: Albuterol/Iprat 2.5/0.5MG 3 ML AMPUL.NEB INHALE ×4 (07:49→20:01)
[2023-12-13] MEDS: methylPREDNISolone Sod Succ 40 MG/ML VIAL IVPUSH ×2 (09:20→16:47)
[2023-12-13] MEDS: LORazepam 1 MG TABLET PO ×2 (09:20→20:28)
[2023-12-13] MEDS: hydroCHLOROthiazide 12.5 MG TABLET PO (09:20)
[2023-12-13] MEDS: Roflumilast 500 MCG TABLET 250 MCG PO (09:20)
[2023-12-13] MEDS: 0.9 % Sodium Chloride Flush 3 ML SYRINGE IVFLUSH ×3 (09:23→20:28)
--- NOTE | 2023-12-13 09:32 | P.PNIM_ITS ---
Subjective Subjective Date of Service: 12/13/23 Interval History: This history was taken in Wolof from the patient. Still having severe wheezing + dyspnea Dry cough Review of Systems Review of Systems: Yes all other systems are reviewed and are negative Physical Exam 2 Vital Signs: Vital Signs: Last Vital Signs Temp 97.1 F 12/13/23 07:55 Pulse 84 12/13/23 07:55 Resp 16 12/13/23 07:55 BP 136/78 12/13/23 07:55 Pulse Ox 100 12/13/23 07:55 O2 Del Method Room Air 12/13/23 07:55 BMI result Body Mass Index 22.8 Gen: in no acute distress HEENT: sclera anicteric, moist mucus membranes Neck: supple Lungs: diffuse expiratory and inspiratory wheezing Heart: regular rate and rhythm, no murmurs Abd: soft, non-tender, non-distended Ext: no edema Skin: warm/well-perfused Neuro: alert and oriented x3, no focal findings Psych: appropriate affect Objective Data Active Medications Acetaminophen (Acetaminophen 325 Mg Tablet) 650 mg PO Q6H PRN PRN Reason: Pain, Mild (Pain Scale 1-3), fever or headache Albuterol Sulfate (Albuterol Sulfate 90 Mcg 8 Gm Inhaler) 2 puff INHALE Q2H PRN PRN Reason: Shortness of Breath/Wheezing Last Admin: 12/10/23 23:02 Dose: 2 puff Documented By: MATTHEW Albuterol/Ipratropium (Albuterol/Iprat 2.5/0.5mg 3 Ml Ampul.Neb) 3 ml INHALE RQ4H WHILE AWAKE [facility] Last Admin: 12/13/23 07:49 Dose: 3 ml Documented By: SARA Amitriptyline HCl (Amitriptyline Hcl 50 Mg Tablet) 50 mg PO BEDTIME [facility] Last Admin: 12/12/23 21:52 Dose: Not Given Documented By: AUGIE Non-Admin Reason: Patient Refused Amlodipine Besylate (Amlodipine Besylate 10 Mg Tablet) 10 mg PO DAILY [facility]; Protocol Last Admin: 12/13/23 04:08 Dose: 10 mg Documented By: AUGIE Azelastine HCl (Azelastine Hcl Nasal 137 Mcg/[place] 30 Ml) 2 spray NOSTRIL-B BID [facility] Last Admin: 10/13/24 09:24 Dose: Not Given Documented By: TALIB Non-Admin Reason: Patient Refused Calcium Carbonate (Calcium Carbonate 750 Mg Tab.Chew) 750 mg PO Q4H PRN PRN Reason: Heartburn Dicyclomine HCl (Dicyclomine Hcl 10 Mg Capsule) 10 mg PO TID [facility] Last Admin: 12/13/23 09:25 Dose: Not Given Documented By: TALBI Non-Admin Reason: Patient Refused Ezetimibe (Ezetimibe 10 Mg Tablet) 10 mg PO DAILY [facility] Last Admin: 12/13/23 09:25 Dose: Not Given Documented By: TALIB Non-Admin Reason: Patient Refused Enoxaparin Sodium (Enoxaparin Sodium 40 Mg/0.4 Ml Syringe) 40 mg SUBCUT Q24H [facility] Last Admin: 12/12/23 15:51 Dose: 40 mg Documented By: TALIB Fluoxetine HCl (Fluoxetine Hcl 20 Mg Capsule) 20 mg PO DAILY [facility] Last Admin: 12/13/23 09:25 Dose: Not Given Documented By: TALIB Non-Admin Reason: Patient Refused Hydrochlorothiazide (Hydrochlorothiazide 12.5 Mg Tablet) 12.5 mg PO DAILY [facility]; Protocol Last Admin: 12/13/23 09:20 Dose: 12.5 mg Documented By: TALIB Hydroxyzine HCl (Hydroxyzine Hcl 25 Mg Tablet) 25 mg PO DAILY PRN PRN Reason: Itchiness Ketotifen Fumarate (Ketotifen Fumarate 0.025% Oph 5 Ml Drpbtl) 1 drop EYE-BOTH BID PRN PRN Reason: Allergy Symptoms Lorazepam (Lorazepam 1 Mg Tablet) 1 mg PO BID [facility] Last Admin: 12/13/23 09:20 Dose: 1 mg Documented By: TALIB Magnesium Hydroxide (Milk Of Magnesia 30 Ml Oral.Susp) 30 ml PO DAILY PRN PRN Reason: Constipation Melatonin (Melatonin 3 Mg Tablet) 6 mg PO BEDTIME PRN PRN Reason: Insomnia Methylprednisolone Sodium Succinate (Methylprednisolone Sod Succ 40 Mg/Ml Vial) 40 mg IVPUSH Q24H [facility] Last Admin: 12/13/23 09:20 Dose: 40 mg Documented By: TALIB Montelukast Sodium (Montelukast Sodium 10 Mg Tablet) 10 mg PO DAILY [facility] Last Admin: 12/13/23 09:25 Dose: Not Given Documented By: TALIB Non-Admin Reason: Patient Refused Omeprazole (Omeprazole 20 Mg Praveen.) 20 mg PO DAILY@0630 [facility] Last Admin: 12/13/23 05:36 Dose: Not Given Documented By: AUGIE Non-Admin Reason: Patient Refused Pravastatin Sodium (Pravastatin Sodium 20 Mg Tablet) 20 mg PO DAILY [facility] Last Admin: 12/13/23 09:25 Dose: Not Given Documented By: TLAIB Non-Admin Reason: Patient Refused Roflumilast (Roflumilast 500 Mcg Tablet) 250 mcg PO DAILY [facility] Last Admin: 12/13/23 09:20 Dose: 250 mcg Documented By: TALIB Sodium Chloride (0.9 % Sodium Chloride Flush 3 Ml Syringe) 3 ml IVFLUSH QSHIFT [facility] Last Admin: 12/13/23 09:23 Dose: 3 ml Documented By: TALIB Sumatriptan Succinate (Sumatriptan Succinate 25 Mg Tablet) 25 mg PO DAILY MRX1 PRN PRN Reason: Migraine Headache Valsartan (Valsartan 80 Mg Tablet) 80 mg PO DAILY [facility]; Protocol Last Admin: 12/13/23 04:08 Dose: 80 mg Documented By: AUGIE Labs 12/11/23 05:26 12/11/23 05:26 Assessment and Plan (1) Asthma exacerbation: Status: Acute Plan d4 68yo F with severe persistent asthma admitted for acute exacerbation acute exacerbation of severe persistent asthma - increase IV methylprednisolone from 40mg daily to 40mg q8h for next 24h, standing/prn nebs, roflumilast, montelukast, Rx controller inhaler upon discharge chronic issues: HTN- valsartan, HCTZ, amlodipine HLD- pravastatin, ezetimibe migraines- prn sumatriptan mood disorder- lorazepam, fluoxetine fibromyalgia- amitriptylline VTE ppx- enoxaparin dispo- eventual home In my clinical judgment, the patient requires continued inpatient hospitalization for the following reasons: wheezing, dyspnea Total time managing care of this patient today: 35 minutes. Quality Stroke Does the patient have a stroke diagnosis?: No VTE Prior VTE?: Yes VTE Risk Level:: Medical - moderate - high VTE Device Contraindication: N/A - Device Ordered VTE Drug Contraindication: N/A - Med Ordered
[2023-12-13] MEDS: Enoxaparin Sodium 40 MG/0.4 ML SYRINGE SUBCUT (15:29)
[2023-12-13] MEDS: Acetaminophen 325 MG TABLET 650 MG PO (20:31)
[2023-12-14] MEDS: methylPREDNISolone Sod Succ 40 MG/ML VIAL IVPUSH ×2 (01:18→08:12)
[2023-12-14 03:44] VITALS: BP 144/81; PULSE 88; RESP 16; TEMP 36.2; O2SAT 95
[2023-12-14] MEDS: Omeprazole 20 MG CAPSULE.DR PO (05:43)
[2023-12-14 07:19] VITALS: BP 169/79; PULSE 92; RESP 16; TEMP 36.9; O2SAT 97
[2023-12-14] MEDS: Albuterol/Iprat 2.5/0.5MG 3 ML AMPUL.NEB INHALE ×2 (07:30→11:11)
[2023-12-14 07:31] VITALS: PULSE 83; RESP 18; O2SAT 99
[2023-12-14] MEDS: hydroCHLOROthiazide 12.5 MG TABLET PO (08:11)
[2023-12-14] MEDS: amLODIPine Besylate 10 MG TABLET PO (08:11)
[2023-12-14] MEDS: Valsartan 80 MG TABLET PO (08:11)
[2023-12-14] MEDS: 0.9 % Sodium Chloride Flush 3 ML SYRINGE IVFLUSH (08:11)
[2023-12-14] MEDS: Roflumilast 500 MCG TABLET 250 MCG PO (08:12)
--- NOTE | 2023-12-14 09:03 | P.DS_ITS ---
DS: Providers Provider Date of Service: 12/14/23 Date of admission: 12/10/23 14:32 Date of discharge: 12/14/23 Primary care physician: Jya Moore MD DS: Diagnosis Discharge Diagnosis (1) Asthma exacerbation: Status: Acute DS: Summary Hospital Course Hospital Course: From the admission H&P: 68-year-old female with a past medical history of severe persistent asthma, hypertension, history of C diff, history is pylori, fibromyalgia GERD, migra ace, hyperlipidemia, chronic pain syndrome, and chronic diarrhea, who presented to the emergency department yesterday for shortness of breath, wheezing and asthma exacerbation. CXR, COVID/RSV/flu were negative and she left without completing treatment. To returned again today with worsening symptoms. CXR again negative. She is requiring more frequent albuterol at home. She complains of dry cough, nonproductive. Some chest pain with cough and headache. She has not had anything to eat or drink today, reason unknown given she does not have any nausea or vomiting. She was started on prednisone by her Dr. Valle about 1 week ago and reports it has not helped. Hospital Course: Patient was started on IV steroids and scheduled bronchodilators. She was slow to improve requiring an increase in steroid dosing. Over the course of 72 hours in the hospital she has improved and her wheezing has basically resolved. She is feeling well and requesting discharge. She will be discharged home on a 5 day course of prednisone. 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 For her chronic issues, hypertension, hyperlipidemia, migraines, mood disorder, fibromyalgia she was continued on her baseline medications. Time Attestation Discharge Coordination Time (in mins): 40 Quality: Safe Use of Opioids Does Pt have an Active Cancer Diagnosis on the Problem List?: No Quality: Stroke Does the patient have a stroke diagnosis?: No Physical Exam Vital Signs: Vital Signs: Last Vital Signs Temp 98.4 F 12/14/23 07:19 Pulse 83 12/14/23 07:31 Resp 18 12/14/23 07:31 BP 169/79 H 12/14/23 07:19 Pulse Ox 97 12/14/23 07:19 O2 Del Method Room Air 12/14/23 07:19 BMI result Body Mass Index 22.8 Const: Other: General - no acute distress, appears comfortable Cardiovascular - regular rate and rhythm, S1-S2 Lungs - normal respiratory effort, clear to auscultation bilaterally, no wheezing Abdomen - soft, nontender, no rebound or guarding Extremities - no edema bilaterally Neuro - awake and alert, no focal deficits Discharge Plan Discharge Anticipated Discharge Date/Time: 12/14/23 08:57 Patient Disposition: Home, Self-Care Discharge Diagnosis: asthma exacerbation Referrals: Name,MD Jay [Primary Care Provider] - 1 Week Discharge Medications: New prednisone 10 mg tablet 40 mg PO DAILY Qty: 20 0RF Continued montelukast 10 mg tablet 10 mg PO DAILY Qty: 90 3RF albuterol sulfate 90 mcg/actuation HFA aerosol inhaler 2 puff PO Q4H PRN (Reason: Wheezing) Qty: 8.5 11RF dicyclomine 10 mg capsule 10 mg PO TID Qty: 270 1RF ketotifen fumarate 0.025 % (0.035 %) drops 1 drp ophthalmic (eye) BID PRN (Reason: Allergy Symptoms) hydrochlorothiazide 12.5 mg capsule 1 cap PO DAILY lorazepam 1 mg tablet 1 tab PO BID sumatriptan succinate 25 mg tablet 25 mg PO ONCE PRN (Reason: Migraine Headache) valsartan 80 mg tablet 80 mg PO DAILY amitriptyline 50 mg tablet 50 mg PO BEDTIME fluoxetine 20 mg capsule 20 mg PO DAILY (DME) blood pressure test kit-large Kit See Rx Instructions .ROUTE BID Qty: 1 Rx Instructions: As directed azelastine 137 mcg (0.1 %) aerosol,spray 2 spray intranasal BID MDD allergies ezetimibe 10 mg tablet 10 mg PO DAILY omeprazole 20 mg capsule,delayed release(DR/EC) 20 mg PO DAILY@0630 (DME) Aerochamber MV Spacer See Rx Instructions .ROUTE .MEDSUPPLY Qty: 1 0RF Rx Instructions: As directed pravastatin 20 mg tablet 20 mg PO DAILY amlodipine 10 mg tablet 10 mg PO DAILY Qty: 90 3RF losartan 50 mg tablet 50 mg PO DAILY hydroxyzine HCl 25 mg tablet 25 mg PO DAILY PRN (Reason: Itchiness) roflumilast [Daliresp] 250 mcg tablet 250 mcg PO DAILY 30 Days Qty: 30 11RF (DME) nebulizers Misc See Rx Instructions .ROUTE Rx Instructions: As directed albuterol sulfate 2.5 mg /3 mL (0.083 %) solution for nebulization 2.5 mg inhalation Q6H PRN (Reason: shortness of breath or wheezing) 30 Days Qty: 180 11RF sumatriptan succinate 25 mg tablet 25 mg PO Q2H Rx Instructions: Only use if patient took one time dose; not to exceed 2 doses in 24 hours. Discontinued prednisone 10 mg tablet See Taper PO DAILY Taper: Prednisone 60 mg daily for 3 Days and 0 Hour 50 mg daily for 3 Days and 0 Hour 40 mg daily for 3 Days and 0 Hour 30 mg daily for 3 Days and 0 Hour 20 mg daily for 3 Days 10 mg daily for 3 Days Discharge Orders: Discharge Order (Routine); Ordered 12/14/23 Ordered By: Stan Corcoran Diet: Advance to usual diet Activity on Discharge: As tolerated Stand Alone Forms: Patient Portal Discharge page Print Language: Yakut Care Plan Goals: To stay healthy and out of the hospital. Health Concerns: Asthma exacerbation Plan of Treatment: Take prednisone for 5 more days, continue her baseline inhalers Assessment: See discharge summary
--- NOTE | 2023-12-14 10:16 | MHC.CM.PN ---
Second IMM given 12/13. Pt is medically cleared for discharge home self-care today, pts daughter will transport her home.
[2023-12-14 11:12] VITALS: PULSE 88; RESP 18; O2SAT 98
== END 2023-12-14 11:25 | disposition home or self-care (01) | DRG 203 ==
LOC: HO.ED 13:50 → HO.EDOVER 14:46 → HO.S3 17:15
PROVIDERS: Physician Assistant Medical; Admitting Provider Physician Assistant; Emergency Provider Emergency Medicine; PCP Internal Medicine Geriatric Medicine; Visit Provider Family Medicine
DX: J45.51 Severe persistent asthma with (acute) exacerbation (principal); F39 Unspecified mood [affective] disorder; G43.909 Migraine, unspecified, not intractable, without status migrainosus; G89.4 Chronic pain syndrome; I10 Essential (primary) hypertension; M79.7 Fibromyalgia; K21.9 Gastro-esophageal reflux disease without esophagitis; E78.5 Hyperlipidemia, unspecified; Z79.899 Other long term (current) drug therapy
CPT/HCPCS: 36415; 71046; 80048; 80053; 83735; 85025; 94640; 99222; 99285; J1650; J2919; J3475

== ENCOUNTER → 2023-12-10 14:32 | Outpatient (BNV) | payer OTHER, SELFPAY | PROVIDERS: Admitting Provider Physician Assistant; Emergency Provider Emergency Medicine; PCP Internal Medicine Geriatric Medicine; Visit Provider Family Medicine | DX: J45.51 Severe persistent asthma with (acute) exacerbation (principal) | CPT/HCPCS: 99222; 99232; 99239 ==

== ENCOUNTER 2023-12-16 09:56 | Outpatient (REF) | payer OTHER, SELFPAY ==
--- NOTE | ~2023-12-16 | MM_ITS ---
EXAMINATION: BONE DENSITOMETRY CLINICAL INDICATION: Chronic prednisone use. COMPARISON: Baseline BD dated 07/23/2018. TECHNIQUE: Using a [employer] DXA System (software version: 13.1) manufactured by [employer], dual-energy x-ray absorptiometry was performed of the lumbar spine and left hip. The images are of good technical quality. Summary results are attached. FINDINGS: LEFT FEMUR, NECK: Current: BMD 0.714 g/cm2, Z-score -0.5, T-score -2.3, osteopenia. Baseline: BMD 0.761 g/cm2. LEFT FEMUR, TOTAL: Current: BMD 0.701 g/cm2, Z-score -0.8, T-score -2.4, osteopenia, 12.5% decrease from baseline (<5% change is not significant). Baseline: BMD 0.801 g/cm2. AP SPINE L1-L4: Current: BMD 0.972 g/cm2, Z-score 0.1, T-score -1.7, osteopenia, 4.2% decrease from baseline (<5% change is not significant). Baseline: BMD 1.015 g/cm2. IDENTIFIED RISK FACTORS: Early menopause, bilateral oophorectomy, glucocorticoids (chronic), hysterectomy, secondary osteoporosis. HISTORY OF FRACTURE: None listed. MEDICATIONS: Vitamin D. MM/XR DEXA axial skeleton IMPRESSION: 1. DIAGNOSIS: Osteopenia based on the lowest T-score value of -2.4 in the total femur applying World Health Organization criteria. 2. 10-YEAR FRACTURE RISK PREDICTION, FRAX: Major osteoporotic fracture (clinical spine, forearm, hip or shoulder) 11.9%. Hip fracture 3.2%. 3. Treatment Recommendations: NOF guidelines recommend consideration for treatment in postmenopausal women and men age 50 and older presenting with the following: -A hip or vertebral (clinical or morphometric) fracture. -T-score less than or equal to -2.5 at the femoral neck or spine after appropriate evaluation to exclude secondary causes. -Low bone mass at the hip or spine and a 10-year fracture probability by FRAX of greater than or equal to 3% for hip fracture or greater than or equal to 20% for major osteoporotic fracture based on the [place] adapted WHO algorithm. 4. Other Recommendations: All treatment decisions require clinical judgment and consideration of individual patient factors, including patient preferences, comorbidities, previous drug use, risk factors not captured in the FRAX model (e.g. frailty, falls, vitamin D deficiency, increased bone turnover, interval significant decline in bone density) and possible under or overestimation of fracture risk by FRAX. Additional medical evaluation for secondary cause of low bone mineral density may be appropriate. FUTURE SCAN RECOMMENDATION: People with diagnosed cases of osteoporosis or at high risk for fracture should have regular bone mineral density tests. For patients eligible for Medicare, routine testing is allowed once every 2 years. The testing frequency can be increased to one year for patients who have rapidly progressing disease, those who are receiving or discontinuing medical therapy to restore bone mass, or have additional risk factors. Electronically signed by: Cecilia Dyer MD 12/16/2023 12:00 PM EDT
== END 2023-12-16 09:57 | disposition home or self-care (01) ==
LOC: HO.MAMMO 09:56
PROVIDERS: PCP Internal Medicine Geriatric Medicine; Visit Provider Internal Medicine Geriatric Medicine
DX: Z79.899 Other long term (current) drug therapy (principal); Z79.52 Long term (current) use of systemic steroids
CPT/HCPCS: 77080

== ENCOUNTER 2024-01-18 12:40 | Outpatient (REF) | payer OTHER, SELFPAY ==
[2024-01-18 14:32] LABS: Blood Urea Nitrogen 17 mg/dL (9-16); Estimated Glomerular Filt Rate > 60
== END 2024-01-18 12:41 | disposition home or self-care (01) ==
LOC: HO.LAB 12:40
PROVIDERS: PCP Internal Medicine Geriatric Medicine; Visit Provider Internal Medicine Gastroenterology
DX: R10.11 Right upper quadrant pain (principal); R07.89 Other chest pain
CPT/HCPCS: 36415; 82565; 84520; 99212

== ENCOUNTER 2024-01-18 12:40 | Outpatient (AMB) | payer OTHER, SELFPAY ==
--- NOTE | 2024-01-18 12:45 | A.OFFVIS_ITS ---
Vital Signs 01/18/24 12:53 Height 5 ft 3 in Weight 137 lb 2.04 oz BMI 24.3 BP 128/76 Blood Pressure Location Lt brachial Position Sitting Pulse 88 Intake Visit Reasons: marv christiansen patient wants to see Intake Note: Patient present in office today in follow up abdominal pain. CC: Patient stats that she was in the hospital for 4 days d/t asthma and could not have procedure done. She states that she has been having abdominal pain and diarrhea for 2 weeks. She also c/o abd bloating, heartburn, and acid reflux. Per patient she feels that the dicyclomine is not helping with her symptoms. 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 Allergies ciprofloxacin [From Cipro] Allergy (Intermediate, Verified 01/18/24 13:00) HIVES/ITCHING oxycodone [Percocet] Allergy (Intermediate, Verified 01/18/24 13:00) Hives Penicillins Allergy (Intermediate, Verified 01/18/24 13:00) HIVES/ITCHING simvastatin [Simvastatin] Allergy (Intermediate, Verified 01/18/24 13:00) HIVES/ITCHINIG vancomycin [Vancomycin] Allergy (Intermediate, Verified 01/18/24 13:00) HIVES/ITCHING latex Allergy (Mild, Verified 01/18/24 13:00) Rash milnacipran [From Savella] Allergy (Mild, Verified 01/18/24 13:00) Hives Sulfa (Sulfonamide Antibiotics) Allergy (Mild, Verified 01/18/24 13:00) Shortness of Breath dupilumab [From Dupixent Pen] Adverse Reaction (Intermediate, Verified 01/18/24 13:00) neuropathy HPI HPI marv christiansen patient wants to see : Details: 68 yr old f w hx of cholecystectomy, here for f/u RECAP__initially saw [facility]--08/2019 She says she has a bacteria in her stomach ? h pylori. Significant bloating she could not eat. She had taken clarithromycin and Flagyl for 3- 4 days and began with nausea and vomiting. She finally had gone to the ED, Antibiotoic therapy discontinued despite GB taken out 1 yr ago she has simialr sx Her appetite is not great however she is not had any further vomiting, however continues with intermittent nausea, bloating and reflux though she discontinued omeprazole as well. She has very unstable BP- always in the ED. She is allergic to every antibiotic as well as anesthesia. Her daughter says that she needs to have monitoring whenever she is given any of the above. Her daughter was extremely concerned taking medications She did have a an abdominal ultrasound 08/08/19--fatty liver, otherwise ok LABS 08/2019--nml BMP, LFT< CBC, microcytosis EGD/colonoscopy--01/2020---patchy erythema, nml colon, bx with h pylori she was given quadruple therapy for h pylori subsequent H pylori breath test 04/2020---Negative, repeat H pylori 10/2021-- negATIVE GES--normal I also gave her linaclotide for constipation thought to be due to her medications she had BENITES and manometry at [facility] 04/2021--pos Demeeester, normal manometry IMAGING: CT 12/2019--- mild constipation, no acute findings US 2021- normal apart from mild aortic atherosclerosis US 10/2022--- aortic plaque seen, otherwise no acute findings She did have stool pos for norvovirus 09/2022 she also had fecal fat but nml panc elastase MRCP-- 08/23-- no filling defects in CBD, no masses CTe: 11/11/23- constipation, atherosclerosis, osteopenia, INTERIM: she has ongoing sx with RUQ pain-- she never had egd yet due to asthma attacks no blood in the stool she denies nausea last few weeks everything just coming out of her soft stool then diarrhea, no blood or melena appetite is normal she feels dicyclomine didnt help her EXAM: GENERAL: The patient is well developed and nontoxic. VITAL SIGNS:see workflow HEENT: Nonicteric sclerae, PERRLA, EOMI. Oropharynx clear. Moist mucous membranes. Conjunctivae appear well perfused. No thyroid mass. CHEST: Chest wall is nontender. HEART: Regular rate and rhythm without murmurs. LUNGS: b/l wheeze and tight chest ABDOMEN: Soft, positive bowel sounds, tender RUQ RLQ, no organomegaly. SKIN: No rash, no excessive bruising, petechiae, or purpura. NEUROLOGIC: Cranial nerves II-XII intact without motor/sensory deficit. psych--nml Assessment & Plan 1/ Undifferentiated abdominal pain, neg studies as above, with post prandial diarrhea, nausea, ? myofascial or functional pain PLAN: 1/ EGD for further assessment--if neg then refer pain max 2/ await formal CTe 3/ stool testing for c diff, pcr and lactoferrin 4/ refer pulmo, asthma out of control [facility] Medical History Abnormal electrocardiogram [ECG] [EKG] Chest pain Bleeding hemorrhoids Eczema VERA positive DVT (deep venous thrombosis) Tachycardia Dyspnea Sinusitis Rash URI (upper respiratory infection) History of anesthesia problem Osteoarthritis Fibromyalgia GERD (gastroesophageal reflux disease) Cervicalgia Depression History of vertigo Varicose vein of leg Chronic pain of left knee Allergic rhinitis Anxiety Asthma Migraine Surgical History History of esophagogastroduodenoscopy (EGD) History of repair of right rotator cuff Hx of bilateral breast reduction surgery Hx of hemorrhoidectomy H/O varicose vein ligation and stripping Hx of colonoscopy Hx of hysterectomy Hx of appendectomy Hx laparoscopic cholecystectomy Status post right rotator cuff repair Family History Father No problems noted. Mother Family history of high blood pressure Dementia Social History Household Members: None Housing: Apartment Do you presently have visiting nurse or other home services: No Alcohol intake: former Comment: pt uses cane as baseline Patient Tobacco Use Status: Never used Tobacco Second Hand Smoke Exposure: No Advance Directives Date on File: 04/03/18 service: No Current occupational status: unemployed Current occupation: Left Handed Assessment & Plan Assessment & Plan (1) Chest tightness: Code(s): R07.89 - Other chest pain Category: Medical Plan: see above Medications: New sucralfate (Carafate) 10 mL PO BID 500 mL 0RF Coding Level of Care Code Est Pt Level 3 (32898) Diagnoses Chest tightness R07.89
[2024-01-18 12:53] VITALS: BP 128/76; PULSE 88; BMI 24.3
== END 2024-01-18 13:24 | disposition home or self-care (01) ==
PROVIDERS: PCP Internal Medicine Geriatric Medicine; Visit Provider Internal Medicine Gastroenterology
DX: R07.89 Other chest pain (principal)
CPT/HCPCS: 99213

== ENCOUNTER 2024-01-19 11:05 | Outpatient (AMB) | payer OTHER, SELFPAY ==
[2024-01-19 11:09] VITALS: BP 122/62; PULSE 107; O2SAT 96; BMI 23.7
--- NOTE | 2024-01-19 11:09 | A.OFFVIS_ITS ---
Vital Signs 01/19/24 11:09 Height 5 ft 3 in Weight 134 lb BMI 23.7 BP 122/62 Blood Pressure Location Rt brachial Position Sitting Pulse 107 H Pulse Source Doppler Pulse Oximetry (%) 96 Oxygen Delivery Method Room Air Intake Visit Reasons: Asthma flare up Infrastructure Engineer Required: Yes Infrastructure Engineer Name: Lynda Williamson C.L.M Allergies ciprofloxacin [From Cipro] Allergy (Intermediate, Verified 01/18/24 13:00) HIVES/ITCHING oxycodone [Percocet] Allergy (Intermediate, Verified 01/18/24 13:00) Hives Penicillins Allergy (Intermediate, Verified 01/18/24 13:00) HIVES/ITCHING simvastatin [Simvastatin] Allergy (Intermediate, Verified 01/18/24 13:00) HIVES/ITCHINIG vancomycin [Vancomycin] Allergy (Intermediate, Verified 01/18/24 13:00) HIVES/ITCHING latex Allergy (Mild, Verified 01/18/24 13:00) Rash milnacipran [From Savella] Allergy (Mild, Verified 01/18/24 13:00) Hives Sulfa (Sulfonamide Antibiotics) Allergy (Mild, Verified 01/18/24 13:00) Shortness of Breath dupilumab [From Dupixent Pen] Adverse Reaction (Intermediate, Verified 01/18/24 13:00) neuropathy HPI HPI Asthma flare up: Details: 68-year-old lady followed for asthma by Dr. Valle presents complaining of acute exacerbation ongoing for several days, symptomatic with significant wheezing and some dyspnea. Denies fevers or chills. She continues on her baseline regimen of Dulera, Singulair, Daliresp, and albuterol MDI/nebs. [facility] Medical History (Updated 01/19/24 @ 11:27 by Romain Siegel MD) Asthma exacerbation Abnormal electrocardiogram [ECG] [EKG] Chest pain Bleeding hemorrhoids Eczema VERA positive DVT (deep venous thrombosis) Tachycardia Dyspnea Sinusitis Rash URI (upper respiratory infection) History of anesthesia problem Osteoarthritis Fibromyalgia GERD (gastroesophageal reflux disease) Cervicalgia Depression History of vertigo Varicose vein of leg Chronic pain of left knee Allergic rhinitis Anxiety Asthma Migraine Surgical History History of esophagogastroduodenoscopy (EGD) History of repair of right rotator cuff Hx of bilateral breast reduction surgery Hx of hemorrhoidectomy H/O varicose vein ligation and stripping Hx of colonoscopy Hx of hysterectomy Hx of appendectomy Hx laparoscopic cholecystectomy Status post right rotator cuff repair Family History Father No problems noted. Mother Family history of high blood pressure Dementia Social History Household Members: None Housing: Apartment Do you presently have visiting nurse or other home services: No Alcohol intake: former Comment: pt uses cane as baseline Patient Tobacco Use Status: Never used Tobacco Second Hand Smoke Exposure: No Advance Directives Date on File: 04/03/18 service: No Current occupational status: unemployed Current occupation: Left Handed Review of Systems Const Denies daytime sleepiness, Denies excessive sweating, Denies fatigue, Denies fever(s), Denies lethargy, Denies malaise, Denies night sweats, Denies snoring and Denies weight loss Eyes Denies blurry vision and Denies itchy eyes ENT Denies nasal congestion, Denies post nasal drip, Denies sinus pain, Denies sinus pressure and Denies other ( Thrush) Card Denies chest pain, Denies pedal edema, Denies dyspnea, Reports dyspnea on exertion, Denies orthopnea and Denies paroxysmal nocturnal dyspnea Resp Denies cough, Denies hemoptysis, Denies excessive phlegm production, Denies dyspnea, Reports dyspnea on exertion, Denies snoring and Reports wheezing GI Denies abdominal pain and Denies heartburn Musc Denies myalgias, Denies arthralgias and Denies joint swelling Skin/Breast Denies rash Neuro Denies memory loss and Denies seizure-like activity Psych Denies abnormal sleep pattern, Denies anxiety and Denies memory loss Endo Denies excessive sweating, Denies fatigue and Denies heat intolerance Shabbir/Lymph Denies easy bruising Aller/Immun Denies itchy eyes, Denies seasonal rhinorrhea and Reports wheezing Physical Exam Vital Signs: Last Vital Signs Pulse 107 H 01/19/24 11:09 BP 122/62 01/19/24 11:09 Pulse Ox 96 01/19/24 11:09 Oxygen Delivery Method Room Air 01/19/24 11:09 BMI result Body Mass Index 23.7 Const General: no acute distress and alert Nutritional Appearance: not obese Orientation/consciousness: Other orientation findings ( oriented) HEENT Head: Yes atraumatic Eyes General: appearance normal, both eyes and all related structures Sclerae: sclerae normal EOM: EOMs intact bilaterally Neck Neck: Yes supple Lymphatic: no lymphadenopathy noted Resp Effort & Inspection: normal respiratory effort and no use of accessory muscles Auscultation: wheezes (Mild bilateral end expiratory) Cardio Rate: regular rate Rhythm: regular rhythm Heart sounds: no gallops, no murmurs and no rubs Skin General skin exam: other ( warm) Extrem General: No clubbing, No cyanosis and No edema Assessment & Plan Assessment & Plan (1) Asthma exacerbation: Code(s): J45.901 - Unspecified asthma with (acute) exacerbation Category: Medical Plan: Acute exacerbation of underlying asthma, will treat with prednisone taper. Continue baseline regimen of Dulera, Daliresp, Singulair, and albuterol MDI/nebs. Medications: New prednisone Take 4 pills daily for 5 days, then go down by 1 pill every 5 days. 10 mg PO DIRECTED 50 tabs 0RF Discontinued prednisone Discontinued Reason: Doctor's Order 40 mg (2 x 20 mg) PO DAILY 6 tabs 0RF Coding Level of Care Code Est Pt Level 3 (03397) Complex EM visit Add On G2211 Diagnoses Asthma exacerbation J45.901
== END 2024-01-19 11:23 | disposition home or self-care (01) ==
PROVIDERS: PCP Internal Medicine Geriatric Medicine; Visit Provider Internal Medicine Pulmonary Disease
DX: J45.901 Unspecified asthma with (acute) exacerbation (principal)
CPT/HCPCS: 99213; G2211

== ENCOUNTER 2024-01-19 11:46 | Outpatient (REF) | payer OTHER, SELFPAY ==
[2024-01-19 14:52] LABS: CDiff Gene PCR NEGATIVE (Negative)
[2024-01-20 13:20] LABS: Adenovirus F 40/41 Not Detected (Not Detect.); Astrovirus Not Detected (Not Detect.); Campylobacter Not Detected (Not Detect.); Cryptosporidium Not Detected (Not Detect.); Cyclospora cayetanensis Not Detected (Not Detect.); E. coli EAEC Not Detected (Not Detect.); E. coli EPEC Not Detected (Not Detect.); E. coli ETEC Not Detected (Not Detect.); E. coli STEC Not Detected (Not Detect.); Entamoeba histolytica Not Detected (Not Detect.); Giardia lamblia Not Detected (Not Detect.); Plesiomonas shigelloides Not Detected (Not Detect.); Rotavirus A Not Detected (Not Detect.); Salmonella Not Detected (Not Detect.); Sapovirus Not Detected (Not Detect.); Shigella sp./EIEC Not Detected (Not Detect.); Vibrio Not Detected (Not Detect.); Vibrio Cholerae Not Detected (Not Detect.); Yersinia enterocolitica Not Detected (Not Detect.)
[2024-01-23 17:12] LABS: Lactoferrin, Fecal, Quant. <6.25 mcg/mL (<7.25)
[2024-01-25 15:21] LABS: Norovirus Stool PCR NOT DETECTED
== END 2024-01-19 11:47 | disposition home or self-care (01) ==
LOC: HO.LNP 11:46
PROVIDERS: Visit Provider Internal Medicine Gastroenterology
DX: R19.7 Diarrhea, unspecified (principal); K51.50 Left sided colitis without complications; J45.901 Unspecified asthma with (acute) exacerbation
CPT/HCPCS: 83631; 87493; 87507; 99212

== ENCOUNTER 2024-02-10 10:17 | Outpatient (AMB) | payer OTHER, SELFPAY ==
--- NOTE | 2024-02-10 10:20 | A.OFFVIS_ITS ---
Vital Signs 02/10/24 10:22 Height 5 ft 3 in Weight 134 lb 7.712 oz BMI 23.8 BP 122/60 Blood Pressure Location Lt brachial Position Sitting Pulse 89 Pulse Source Pulse Oximeter Pulse Oximetry (%) 98 Oxygen Delivery Method Room Air Intake Visit Reasons: COPD Tower Switch Operator Required: No News Clipping Cutter: News Clipping Cutter offered & declined Accompanied by: Self / Same As Patient Allergies ciprofloxacin [From Cipro] Allergy (Intermediate, Verified 02/10/24 10:26) HIVES/ITCHING oxycodone [Percocet] Allergy (Intermediate, Verified 02/10/24 10:26) Hives Penicillins Allergy (Intermediate, Verified 02/10/24 10:26) HIVES/ITCHING simvastatin [Simvastatin] Allergy (Intermediate, Verified 02/10/24 10:26) HIVES/ITCHINIG vancomycin [Vancomycin] Allergy (Intermediate, Verified 02/10/24 10:26) HIVES/ITCHING latex Allergy (Mild, Verified 02/10/24 10:26) Rash milnacipran [From Savella] Allergy (Mild, Verified 02/10/24 10:26) Hives Sulfa (Sulfonamide Antibiotics) Allergy (Mild, Verified 02/10/24 10:26) Shortness of Breath dupilumab [From Dupixent Pen] Adverse Reaction (Intermediate, Verified 02/10/24 10:26) neuropathy Medication List - Last Reconciled 02/10/24 by Luh Pino LPN albuterol sulfate 2.5 mg (3 mL) inhalation Q6H PRN 30 days albuterol sulfate 90 mcg/actuation 2 puffs PO Q4H PRN amitriptyline 50 mg PO BEDTIME amlodipine 10 mg PO DAILY azelastine 2 sprays intranasal BID MDD allergies blood pressure test kit-large As directed dicyclomine 10 mg PO TID ezetimibe 10 mg PO DAILY fluoxetine 20 mg PO DAILY hydrochlorothiazide 1 cap PO DAILY hydroxyzine HCl 25 mg PO DAILY PRN inhalational spacing device (Aerochamber MV spacer) As directed ketotifen fumarate 0.025%(0.035%) 1 drp ophthalmic (eye) BID PRN lorazepam 1 tab PO BID losartan 50 mg PO DAILY mometasone-formoterol 200-5 mcg/actuation (Dulera) 2 puffs inhalation BID montelukast 10 mg PO DAILY nebulizers As directed omeprazole 20 mg PO DAILY@0630 pravastatin 20 mg PO DAILY prednisone 10 mg PO DIRECTED roflumilast (Daliresp) 250 mcg PO DAILY 30 days sucralfate (Carafate) 10 mL PO BID sumatriptan succinate 25 mg PO ONCE PRN valsartan 80 mg PO DAILY HPI Comments Details: The patient is a 68-year-old woman known allergic rhinitis and severe persistent asthma. She has been using her respiratory therapy. Still having significant shortness of breath because she has been exposed to significant smoke and fumes from her upstairs neighbor. She is very the 94 hold also lives in the same environment and also has been getting worsening respiratory symptoms. She will talk to the now alert and also I gave her a number of an asthma association that may be able to help her. Continues to have wheezing at times. She is waking up more often. Also having more coughing. She has been more congested. She has been getting allergy medications from temper mill operator. He will bring maximizing her respiratory therapy. She has tried certain biologic therapies with her temper mill operator. She had a bad reaction to Xolair I am not sure if she try Dupixent or interlukin 5 inhibitors yet. The patient has severe persistent asthma with significant wheezing right now on examination. She has been using the Dupixent injections every 2 weeks with very good effect. She continues on respiratory therapy. She has not required any prednisone which is been great. It also has been helping her chronic rhinitis. In the meantime she is dealing with issues with abdominal pain and reflux. She was evaluated by GI and appears to be have some peptic ulcer disease and H pylori. Therefore she was started on therapy although difficult for her to tolerate. Now she is planned to have an endoscopy which should be reassuring. In the meantime she needs to continue with the reflux diet and she also understands the acid reflux can exacerbate her respiratory issues. 03/07/2022 the patient is here for pulmonary follow-up visit. She continues to have her significant asthma symptoms and also nasal congestion. Moderate severity. She continues to be on chronic prednisone because of the severity of her symptoms. She also continues with respiratory therapy. Based on her steroid dependent asthma the patient it is more agreeable to considering a different biologic regimen. Again she already tried Xolair in Dupixent. Although Dupixent was helpful initially the patient then became symptomatic with significant neuropathy and had to stop it. The patient is agreeable to looking into starting Tezspire. at this point the patient is having significant wheezing on examination and will require additional prednisone. Will also start the process for the biologic regimen. 05/01/2023 the patient is here for pulmonary follow-up visit. Overall the patient has been doing well from a respiratory status. Although typically her asthma worsened springtime. The patient will be maximize her respiratory therapy by increasing the Spiriva to the maximum dose. She is already using the Dulera twice a day. She also requires her rescue inhaler about twice a week. The patient did have a full cardiac workup which was reassuring. She has not had a chest x-ray now in couple years. Will go ahead and repeat her chest x-ray at this time. If his abnormal call her and will follow-up with any additional testing in the case. We did talk about biologics. The patient still is reluctant to use any biologics specially with a bad reaction to the Dupixent and also has had bad reactions to other medications. Therefore will continue to monitor her closely during the springtime if she has any issues she will call the office for an earlier assessment. Otherwise will follow-up in 4-6 months. 07/06/2023 the patient is here for a pulmonary sick visit. She has been sick now for about 2 days. She started developing chest tightness pressure and chest congestion. Denies any fevers or chills. She has been using her nebulizer home with only partial resolution of her wheezing and chest tightness. She is very concerned. Again, we talked about biologic therapy. She is tried some in the past and had adverse effects and she really does not want to try anything else. Although I do believe Tezspire will be a very good option for her. Right now she has significant wheezing. I did give her 2 treatments with DuoNeb. In addition to that the patient will go home and pick pulling machine tender some prednisone and start a course of azithromycin. If the patient is no better she can always call to reassess. In the meantime we did review her recent CT scan of the chest. Her CT scan is reassuring she does have some pleural thickening areas and some areas of fibrosis but minimal. The patient does have mosaic pattern consistent with her asthma. 11/06/2023 the patient is here for a pulmonary follow-up visit. Overall the patient is still having issues with her asthma. She has frequent flare-ups. Now going to the fall she has additional allergies. She had responded well to Dupixent as far as her breathing but did result in adverse effects. She is concerned about any other biologic therapy. She is not willing to start any biologic therapies at this time. Therefore, give her additional prednisone for her to take. She is having increasing chest tightness right now. Moderate severity with wheezing. She continues use her respiratory therapy and also has a nebulizer. She is willing to start Daliresp as a way to decrease her chronic bronchitis and chronic obstructive pulmonary disease exacerbations. Will start her on the 250 mcg dose and then increase as tolerated to the therapeutic dose. 02/10/2024 the patient is here for a pulmonary follow-up visit. Recently she was hospitalized with an asthma exacerbation. She required additional prednisone. Now she is off the prednisone. She is using the Dulera. She has not been using the Spiriva. She does have severe persistent asthma. She also has significant allergies. Unfortunately she has had reactions to the biologics. Although I do believe has part be a very good option for her. She is reluctant to use it at this time. Although, I believe will be a good option for her. She is going to consider it for now. Will going to maximize her respiratory therapy by adding Spiriva. Right now her breathing is stable so therefore will hold off in an additional prednisone. She does have osteopenia on her bone scan so I explained to her the importance for her to stay away from prednisone as much as possible. She also did try the Daliresp unfortunately she had an adverse reaction feeling agitated and restless. Therefore will hold off on that at this time. [facility] Medical History (Updated 01/19/24 @ 11:27 by Romain Siegel MD) Asthma exacerbation Abnormal electrocardiogram [ECG] [EKG] Chest pain Bleeding hemorrhoids Eczema VERA positive DVT (deep venous thrombosis) Tachycardia Dyspnea Sinusitis Rash URI (upper respiratory infection) History of anesthesia problem Osteoarthritis Fibromyalgia GERD (gastroesophageal reflux disease) Cervicalgia Depression History of vertigo Varicose vein of leg Chronic pain of left knee Allergic rhinitis Anxiety Asthma Migraine Surgical History History of esophagogastroduodenoscopy (EGD) History of repair of right rotator cuff Hx of bilateral breast reduction surgery Hx of hemorrhoidectomy H/O varicose vein ligation and stripping Hx of colonoscopy Hx of hysterectomy Hx of appendectomy Hx laparoscopic cholecystectomy Status post right rotator cuff repair Family History Father No problems noted. Mother Family history of high blood pressure Dementia Social History Household Members: None Housing: Apartment Do you presently have visiting nurse or other home services: No Alcohol intake: former Comment: pt uses cane as baseline Patient Tobacco Use Status: Never used Tobacco Second Hand Smoke Exposure: No Advance Directives Date on File: 04/03/18 service: No Current occupational status: unemployed Current occupation: Left Handed Review of Systems Const Reports fatigue, Reports headache(s), Denies night sweats and Reports weight loss ENT Denies change in voice, Reports headache(s), Denies lip swelling, Denies mouth pain, Reports nasal congestion, Reports nasal discharge, Reports nasal obstruction, Reports post nasal drip and Denies tongue swelling Card Denies chest pain, Denies dyspnea and Reports dyspnea on exertion Resp Reports change in phlegm color, Reports chest congestion, Reports cough, Denies dyspnea, Reports dyspnea on exertion and Reports wheezing GI Denies abdominal pain, Denies diarrhea and Denies loose stools Musc Denies no additional complaints Neuro Denies Neuro-related abnormal movements, Denies burning sensations, Reports headache(s) and Denies paresthesias Psych Denies no additional complaints Endo Reports fatigue Shabbir/Lymph Denies easy bleeding and Denies lymphadenopathy Aller/Immun Denies lip swelling, Denies tongue swelling and Reports wheezing Physical Exam Vital Signs: Last Vital Signs Pulse 89 02/10/24 10:22 BP 122/60 02/10/24 10:22 Pulse Ox 98 02/10/24 10:22 Oxygen Delivery Method Room Air 02/10/24 10:22 BMI result Body Mass Index 23.8 Const General: cooperative, healthy appearing and comfortable Orientation/consciousness: oriented to person, oriented to place and oriented to time Neck Carotids: no bruits Chest Chest palpation & inspection: normal inspection of the chest and normal palpation of entire chest wall Resp Effort & Inspection: normal respiratory effort and prolonged expiratory phase Auscultation: no wheezes and diminished lung sounds Cardio Rate: regular rate Heart sounds: S1 normal heart sound present and S2 normal heart sound present Peripheral pulses: Peripheral pulses 2+ throughout GI Inspection: Yes normal to inspection Skin Other: +2 edema, large rope-like varicosities greater than 3 mm CEAP Classification C4 - skin color changes Ep - Etiology Primary As - superficial veins P - reflux General skin exam: dry skin Neuro General: oriented to person, oriented to place and oriented to time Extrem Right lower extremity: full ROM, normal capillary refill and edema Left lower extremity: full ROM, normal capillary refill and edema Psych Mental Status: mental status grossly normal Assessment & Plan Assessment & Plan (1) Asthma: Code(s): J45.909 - Unspecified asthma, uncomplicated Category: Medical Qualifiers: Asthma complication type: with acute exacerbation Asthma persistence: persistent Asthma severity: severe Qualified Code(s): J45.51 - Severe persistent asthma with (acute) exacerbation (2) Allergic reaction: Code(s): T78.40XA - Allergy, unspecified, initial encounter Category: Medical Qualifiers: Encounter type: initial encounter Qualified Code(s): T78.40XA - Allergy, unspecified, initial encounter (3) GERD (gastroesophageal reflux disease): Code(s): K21.9 - Gastro-esophageal reflux disease without esophagitis Category: Medical Qualifiers: Esophagitis bleeding: without hemorrhage Esophagitis presence: with esophagitis Qualified Code(s): K21.00 - Gastro-esophageal reflux disease with esophagitis, without bleeding (4) Eczema: Code(s): L30.9 - Dermatitis, unspecified Category: Medical Qualifiers: Eczema type: intrinsic Qualified Code(s): L20.84 - Intrinsic (allergic) eczema Plan stop Daliresp (adverse effect) Continue Dulera change Spiriva (not covered) to incruse BRENDA as needed Continue nebulizer therapy consider tezspire ( not interested) Reflux diet Nasal rinsing Follow-up 3-4 months Medications: New montelukast 10 mg PO DAILY 30 tabs 11RF 30 days J45.909 - Unspecified asthma, uncomplicated ipratropium bromide administer into each nostril 2 sprays intranasal TID PRN 15 mL 6RF allergy symptoms tiotropium bromide 2.5 mcg/actuation (Spiriva Respimat) 2 puffs inhalation DAILY 1 ea 11RF 30 days albuterol sulfate 90 mcg/actuation (Ventolin HFA) 2 puffs inhalation QID PRN 18 grams 11RF shortness of breath or wheezing 30 days Changed From mometasone-formoterol 200-5 mcg/actuation (Dulera) 2 puffs inhalation BID To mometasone-formoterol 200-5 mcg/actuation (Dulera) 2 puffs inhalation BID 13 grams 11RF 30 days Coding Level of Care Code Est Pt Level 4 (20209) Diagnoses Severe persistent asthma with acute exacerbation J45.51 Asthma complication type: with acute exacerbation Asthma persistence: persistent Asthma severity: severe Allergic reaction, initial encounter T78.40XA Encounter type: initial encounter Gastroesophageal reflux disease with esophagitis without hemorrhage K21.00 Esophagitis bleeding: without hemorrhage Esophagitis presence: with esophagitis Intrinsic eczema L20.84 Eczema type: intrinsic Time Spent (min) 17
[2024-02-10 10:22] VITALS: BP 122/60; PULSE 89; O2SAT 98; BMI 23.8
--- NOTE | 2024-02-10 10:28 | A.OFFVIS_ITS ---
Vital Signs 02/10/24 10:22 Height 5 ft 3 in Weight 134 lb 7.712 oz BMI 23.8 BP 122/60 Blood Pressure Location Lt brachial Position Sitting Pulse 89 Pulse Source Pulse Oximeter Pulse Oximetry (%) 98 Oxygen Delivery Method Room Air Intake Visit Reasons: COPD Allergies ciprofloxacin [From Cipro] Allergy (Intermediate, Verified 02/10/24 10:26) HIVES/ITCHING oxycodone [Percocet] Allergy (Intermediate, Verified 02/10/24 10:26) Hives Penicillins Allergy (Intermediate, Verified 02/10/24 10:26) HIVES/ITCHING simvastatin [Simvastatin] Allergy (Intermediate, Verified 02/10/24 10:26) HIVES/ITCHINIG vancomycin [Vancomycin] Allergy (Intermediate, Verified 02/10/24 10:26) HIVES/ITCHING latex Allergy (Mild, Verified 02/10/24 10:26) Rash milnacipran [From Savella] Allergy (Mild, Verified 02/10/24 10:26) Hives Sulfa (Sulfonamide Antibiotics) Allergy (Mild, Verified 02/10/24 10:26) Shortness of Breath dupilumab [From Dupixent Pen] Adverse Reaction (Intermediate, Verified 02/10/24 10:26) neuropathy Medication List - Last Reconciled 02/10/24 by Luh Pino LPN albuterol sulfate 2.5 mg (3 mL) inhalation Q6H PRN 30 days albuterol sulfate 90 mcg/actuation 2 puffs PO Q4H PRN amitriptyline 50 mg PO BEDTIME amlodipine 10 mg PO DAILY azelastine 2 sprays intranasal BID MDD allergies blood pressure test kit-large As directed dicyclomine 10 mg PO TID ezetimibe 10 mg PO DAILY fluoxetine 20 mg PO DAILY hydrochlorothiazide 1 cap PO DAILY hydroxyzine HCl 25 mg PO DAILY PRN inhalational spacing device (Aerochamber MV spacer) As directed ketotifen fumarate 0.025%(0.035%) 1 drp ophthalmic (eye) BID PRN lorazepam 1 tab PO BID losartan 50 mg PO DAILY mometasone-formoterol 200-5 mcg/actuation (Dulera) 2 puffs inhalation BID montelukast 10 mg PO DAILY nebulizers As directed omeprazole 20 mg PO DAILY@0630 pravastatin 20 mg PO DAILY prednisone 10 mg PO DIRECTED roflumilast (Daliresp) 250 mcg PO DAILY 30 days sucralfate (Carafate) 10 mL PO BID sumatriptan succinate 25 mg PO ONCE PRN valsartan 80 mg PO DAILY PFSH Medical History (Updated 01/19/24 @ 11:27 by Romain Siegel MD) Asthma exacerbation Abnormal electrocardiogram [ECG] [EKG] Chest pain Bleeding hemorrhoids Eczema VERA positive DVT (deep venous thrombosis) Tachycardia Dyspnea Sinusitis Rash URI (upper respiratory infection) History of anesthesia problem Osteoarthritis Fibromyalgia GERD (gastroesophageal reflux disease) Cervicalgia Depression History of vertigo Varicose vein of leg Chronic pain of left knee Allergic rhinitis Anxiety Asthma Migraine Surgical History History of esophagogastroduodenoscopy (EGD) History of repair of right rotator cuff Hx of bilateral breast reduction surgery Hx of hemorrhoidectomy H/O varicose vein ligation and stripping Hx of colonoscopy Hx of hysterectomy Hx of appendectomy Hx laparoscopic cholecystectomy Status post right rotator cuff repair Family History Father No problems noted. Mother Family history of high blood pressure Dementia Social History Household Members: None Housing: Apartment Do you presently have visiting nurse or other home services: No Alcohol intake: former Comment: pt uses cane as baseline Patient Tobacco Use Status: Never used Tobacco Second Hand Smoke Exposure: No Advance Directives Date on File: 04/03/18 service: No Current occupational status: unemployed Current occupation: Left Handed Physical Exam Vital Signs: Last Vital Signs Pulse 89 02/10/24 10:22 BP 122/60 02/10/24 10:22 Pulse Ox 98 02/10/24 10:22 Oxygen Delivery Method Room Air 02/10/24 10:22 BMI result Body Mass Index 23.8 Quality Reporting (2019) Adult ([facility] 138/04/23/68) Body Mass Index: 23.8 Coding
== END 2024-02-10 10:45 | disposition home or self-care (01) ==
PROVIDERS: PCP Internal Medicine Geriatric Medicine; Visit Provider Hospitalist
DX: J45.51 Severe persistent asthma with (acute) exacerbation (principal); T78.40XA Allergy, unspecified, initial encounter; K21.00 Gastro-esophageal reflux disease with esophagitis, without bleeding; L20.84 Intrinsic (allergic) eczema
CPT/HCPCS: 99214

== ENCOUNTER → 2024-02-10 10:17 | Outpatient (BNVA) | payer OTHER, SELFPAY | PROVIDERS: PCP Internal Medicine Geriatric Medicine; Visit Provider Hospitalist | DX: J44.9 Chronic obstructive pulmonary disease, unspecified (principal); J45.51 Severe persistent asthma with (acute) exacerbation; K21.00 Gastro-esophageal reflux disease with esophagitis, without bleeding; L20.84 Intrinsic (allergic) eczema; T78.40XA Allergy, unspecified, initial encounter | CPT/HCPCS: 99212 ==

== ENCOUNTER 2024-03-22 11:52 | Outpatient (REF) | payer OTHER, SELFPAY ==
[2024-03-22 14:00] LABS: Anion Gap 12 (12-20); Blood Urea Nitrogen 15 mg/dL (9-16); Calcium 9.4 mg/dL (8.4-10.2); Carbon Dioxide 26 mmol/L (22-29); Chloride 109 mmol/L (96-108); Estimated Glomerular Filt Rate > 60; Glucose Random 86 mg/dL (60-115); Potassium 3.8 mmol/L (3.3-5.1); Sodium 143 mmol/L (135-145)
== END 2024-03-22 11:53 | disposition home or self-care (01) ==
LOC: HO.HHCL 11:52
PROVIDERS: Visit Provider Internal Medicine Geriatric Medicine
DX: I10 Essential (primary) hypertension (principal)
CPT/HCPCS: 36415; 80048

== ENCOUNTER 2024-04-05 10:55 | Outpatient (AMB) | payer OTHER, SELFPAY ==
--- NOTE | 2024-04-05 11:03 | MHC.OFFVIS ---
Vital Signs 04/05/24 11:04 Height 5 ft 3 in Weight 132 lb 4.438 oz BMI 23.4 BP 118/60 Blood Pressure Location Lt brachial Position Sitting Pulse 77 Pulse Source Pulse Oximeter Pulse Oximetry (%) 96 Oxygen Delivery Method Room Air Intake Visit Reasons: COPD Allergies ciprofloxacin [From Cipro] Allergy (Intermediate, Verified 04/05/24 11:07) HIVES/ITCHING oxycodone [Percocet] Allergy (Intermediate, Verified 04/05/24 11:07) Hives Penicillins Allergy (Intermediate, Verified 04/05/24 11:07) HIVES/ITCHING simvastatin [Simvastatin] Allergy (Intermediate, Verified 04/05/24 11:07) HIVES/ITCHINIG vancomycin [Vancomycin] Allergy (Intermediate, Verified 04/05/24 11:07) HIVES/ITCHING latex Allergy (Mild, Verified 04/05/24 11:07) Rash milnacipran [From Savella] Allergy (Mild, Verified 04/05/24 11:07) Hives Sulfa (Sulfonamide Antibiotics) Allergy (Mild, Verified 04/05/24 11:07) Shortness of Breath dupilumab [From Dupixent Pen] Adverse Reaction (Intermediate, Verified 04/05/24 11:07) neuropathy HPI Comments Details: The patient is a 68-year-old woman known allergic rhinitis and severe persistent asthma. She has been using her respiratory therapy. Still having significant shortness of breath because she has been exposed to significant smoke and fumes from her upstairs neighbor. She is very the 94 hold also lives in the same environment and also has been getting worsening respiratory symptoms. She will talk to the now alert and also I gave her a number of an asthma association that may be able to help her. Continues to have wheezing at times. She is waking up more often. Also having more coughing. She has been more congested. She has been getting allergy medications from multimedia instructional designer. He will bring maximizing her respiratory therapy. She has tried certain biologic therapies with her multimedia instructional designer. She had a bad reaction to Xolair I am not sure if she try Dupixent or interlukin 5 inhibitors yet. The patient has severe persistent asthma with significant wheezing right now on examination. She has been using the Dupixent injections every 2 weeks with very good effect. She continues on respiratory therapy. She has not required any prednisone which is been great. It also has been helping her chronic rhinitis. In the meantime she is dealing with issues with abdominal pain and reflux. She was evaluated by GI and appears to be have some peptic ulcer disease and H pylori. Therefore she was started on therapy although difficult for her to tolerate. Now she is planned to have an endoscopy which should be reassuring. In the meantime she needs to continue with the reflux diet and she also understands the acid reflux can exacerbate her respiratory issues. 03/07/2022 the patient is here for pulmonary follow-up visit. She continues to have her significant asthma symptoms and also nasal congestion. Moderate severity. She continues to be on chronic prednisone because of the severity of her symptoms. She also continues with respiratory therapy. Based on her steroid dependent asthma the patient it is more agreeable to considering a different biologic regimen. Again she already tried Xolair in Dupixent. Although Dupixent was helpful initially the patient then became symptomatic with significant neuropathy and had to stop it. The patient is agreeable to looking into starting Tezspire. at this point the patient is having significant wheezing on examination and will require additional prednisone. Will also start the process for the biologic regimen. 05/01/2023 the patient is here for pulmonary follow-up visit. Overall the patient has been doing well from a respiratory status. Although typically her asthma worsened springtime. The patient will be maximize her respiratory therapy by increasing the Spiriva to the maximum dose. She is already using the Dulera twice a day. She also requires her rescue inhaler about twice a week. The patient did have a full cardiac workup which was reassuring. She has not had a chest x-ray now in couple years. Will go ahead and repeat her chest x-ray at this time. If his abnormal call her and will follow-up with any additional testing in the case. We did talk about biologics. The patient still is reluctant to use any biologics specially with a bad reaction to the Dupixent and also has had bad reactions to other medications. Therefore will continue to monitor her closely during the springtime if she has any issues she will call the office for an earlier assessment. Otherwise will follow-up in 4-6 months. 07/06/2023 the patient is here for a pulmonary sick visit. She has been sick now for about 2 days. She started developing chest tightness pressure and chest congestion. Denies any fevers or chills. She has been using her nebulizer home with only partial resolution of her wheezing and chest tightness. She is very concerned. Again, we talked about biologic therapy. She is tried some in the past and had adverse effects and she really does not want to try anything else. Although I do believe Tezspire will be a very good option for her. Right now she has significant wheezing. I did give her 2 treatments with DuoNeb. In addition to that the patient will go home and machine pecan picker some prednisone and start a course of azithromycin. If the patient is no better she can always call to reassess. In the meantime we did review her recent CT scan of the chest. Her CT scan is reassuring she does have some pleural thickening areas and some areas of fibrosis but minimal. The patient does have mosaic pattern consistent with her asthma. 11/06/2023 the patient is here for a pulmonary follow-up visit. Overall the patient is still having issues with her asthma. She has frequent flare-ups. Now going to the fall she has additional allergies. She had responded well to Dupixent as far as her breathing but did result in adverse effects. She is concerned about any other biologic therapy. She is not willing to start any biologic therapies at this time. Therefore, give her additional prednisone for her to take. She is having increasing chest tightness right now. Moderate severity with wheezing. She continues use her respiratory therapy and also has a nebulizer. She is willing to start Daliresp as a way to decrease her chronic bronchitis and chronic obstructive pulmonary disease exacerbations. Will start her on the 250 mcg dose and then increase as tolerated to the therapeutic dose. 02/10/2024 the patient is here for a pulmonary follow-up visit. Recently she was hospitalized with an asthma exacerbation. She required additional prednisone. Now she is off the prednisone. She is using the Dulera. She has not been using the Spiriva. She does have severe persistent asthma. She also has significant allergies. Unfortunately she has had reactions to the biologics. Although I do believe has part be a very good option for her. She is reluctant to use it at this time. Although, I believe will be a good option for her. She is going to consider it for now. Will going to maximize her respiratory therapy by adding Spiriva. Right now her breathing is stable so therefore will hold off in an additional prednisone. She does have osteopenia on her bone scan so I explained to the importance for her to stay away from prednisone as much as possible. She also did try the Daliresp unfortunately she had an adverse reaction feeling agitated and restless. Therefore will hold off on that at this time. 04/05/2024 the patient is here for a pulmonary follow-up visit. The patient overall still the same. She still complains of wheezing complains of chest tightness. Ssif-fq-gvvkqmqv severity. She has been off the prednisone which is reassuring. She continues on her inhalers. I believe that she may have some and he does at home and she is not quite clear which ones they are. She possibly is taking Dulera and maybe taking Bevespi. So I did provide her with a map of the different inhalers. I do believe that she will do better with a combination inhaler such as Breztri . Therefore will send Breztri to the pharmacy. In the meantime she is not interested in any biologic therapy for her multimedia instructional designer. She does have an multimedia instructional designer and we did provide her with an allergy referral but she has not heard. I did give her the information she can call the office. She continues to take Faye once or twice a day and continues with a nasal therapies sprays. No recent imaging studies to review. last CXR from 12/2023 was normal. [facility] Medical History (Updated 04/05/24 @ 11:23 by Anson Valle MD) Asthma-COPD overlap syndrome Asthma exacerbation Abnormal electrocardiogram [ECG] [EKG] Chest pain Bleeding hemorrhoids Eczema VERA positive DVT (deep venous thrombosis) Tachycardia Dyspnea Sinusitis Rash URI (upper respiratory infection) History of anesthesia problem Osteoarthritis Fibromyalgia GERD (gastroesophageal reflux disease) Cervicalgia Depression History of vertigo Varicose vein of leg Chronic pain of left knee Allergic rhinitis Anxiety Asthma Migraine Surgical History History of esophagogastroduodenoscopy (EGD) History of repair of right rotator cuff Hx of bilateral breast reduction surgery Hx of hemorrhoidectomy H/O varicose vein ligation and stripping Hx of colonoscopy Hx of hysterectomy Hx of appendectomy Hx laparoscopic cholecystectomy Status post right rotator cuff repair Family History Father No problems noted. Mother Family history of high blood pressure Dementia Social History Household Members: None Housing: Apartment Do you presently have visiting nurse or other home services: No Alcohol intake: former Comment: pt uses cane as baseline Patient Tobacco Use Status: Never used Tobacco Second Hand Smoke Exposure: No Advance Directives Date on File: 04/03/18 service: No Current occupational status: unemployed Current occupation: Left Handed Review of Systems Const Reports fatigue, Reports headache(s), Denies night sweats and Reports weight loss ENT Denies change in voice, Reports headache(s), Denies lip swelling, Denies mouth pain, Reports nasal congestion, Reports nasal discharge, Reports nasal obstruction, Reports post nasal drip and Denies tongue swelling Card Denies chest pain, Denies dyspnea and Reports dyspnea on exertion Resp Reports change in phlegm color, Reports chest congestion, Reports cough, Denies dyspnea, Reports dyspnea on exertion and Reports wheezing GI Denies abdominal pain, Denies diarrhea and Denies loose stools Musc Denies no additional complaints Neuro Denies Neuro-related abnormal movements, Denies burning sensations, Reports headache(s) and Denies paresthesias Psych Denies no additional complaints Endo Reports fatigue Shabbir/Lymph Denies easy bleeding and Denies lymphadenopathy Aller/Immun Denies lip swelling, Denies tongue swelling and Reports wheezing Physical Exam Vital Signs: Last Vital Signs Pulse 77 04/05/24 11:04 BP 118/60 04/05/24 11:04 Pulse Ox 96 04/05/24 11:04 Oxygen Delivery Method Room Air 04/05/24 11:04 BMI result Body Mass Index 23.4 Const General: cooperative, healthy appearing and comfortable Orientation/consciousness: oriented to person, oriented to place and oriented to time Neck Carotids: no bruits Chest Chest palpation & inspection: normal inspection of the chest and normal palpation of entire chest wall Resp Effort & Inspection: normal respiratory effort and prolonged expiratory phase Auscultation: no wheezes and diminished lung sounds Cardio Rate: regular rate Heart sounds: S1 normal heart sound present and S2 normal heart sound present Peripheral pulses: Peripheral pulses 2+ throughout GI Inspection: Yes normal to inspection Skin Other: +2 edema, large rope-like varicosities greater than 3 mm CEAP Classification C4 - skin color changes Ep - Etiology Primary As - superficial veins P - reflux General skin exam: dry skin Neuro General: oriented to person, oriented to place and oriented to time Extrem Right lower extremity: full ROM, normal capillary refill and edema Left lower extremity: full ROM, normal capillary refill and edema Psych Mental Status: mental status grossly normal Assessment & Plan Assessment & Plan (1) Asthma: Code(s): J45.909 - Unspecified asthma, uncomplicated Category: Medical Qualifiers: Asthma complication type: with acute exacerbation Asthma persistence: persistent Asthma severity: severe Qualified Code(s): J45.51 - Severe persistent asthma with (acute) exacerbation (2) Allergic reaction: Code(s): T78.40XA - Allergy, unspecified, initial encounter Category: Medical Qualifiers: Encounter type: initial encounter Qualified Code(s): T78.40XA - Allergy, unspecified, initial encounter (3) GERD (gastroesophageal reflux disease): Code(s): K21.9 - Gastro-esophageal reflux disease without esophagitis Category: Medical Qualifiers: Esophagitis bleeding: without hemorrhage Esophagitis presence: with esophagitis Qualified Code(s): K21.00 - Gastro-esophageal reflux disease with esophagitis, without bleeding (4) Eczema: Code(s): L30.9 - Dermatitis, unspecified Category: Medical Qualifiers: Eczema type: intrinsic Qualified Code(s): L20.84 - Intrinsic (allergic) eczema (5) Asthma-COPD overlap syndrome: Code(s): J44.89 - Other specified chronic obstructive pulmonary disease Category: Medical Plan stop Dulera start Breztri BRENDA as needed Continue nebulizer therapy Reflux diet Nasal rinsing Follow-up 3-4 months Medications: New fvlddqdjbz-ifvgqwuc-cdcjclvmiq 160-9-4.8 mcg/actuation (Breztri Aerosphere) 2 inhalations inhalation BID 10.7 grams 11RF J44.89 - Other specified chronic obstructive pulmonary disease Refilled albuterol sulfate 90 mcg/actuation (Ventolin HFA) 2 puffs inhalation QID PRN 18 grams 11RF shortness of breath or wheezing 30 days Coding Level of Care Code Est Pt Level 4 (43094) Diagnoses Severe persistent asthma with acute exacerbation J45.51 Asthma complication type: with acute exacerbation Asthma persistence: persistent Asthma severity: severe Allergic reaction, initial encounter T78.40XA Encounter type: initial encounter Gastroesophageal reflux disease with esophagitis without hemorrhage K21.00 Esophagitis bleeding: without hemorrhage Esophagitis presence: with esophagitis Intrinsic eczema L20.84 Eczema type: intrinsic Asthma-COPD overlap syndrome J44.89 Time Spent (min) 16
[2024-04-05 11:04] VITALS: BP 118/60; PULSE 77; O2SAT 96; BMI 23.4
--- OUTSIDE RECORDS SUMMARY | 2024-04-05 11:50 | XMS_ITS | Encounter Summary ---
Author Organization [employer] Address [address] [place] [address] Care Team Providers Care Position Clerk Name Role Phone Name, Jay PHAM Primary Care Provider [phone] Reason for Visit * Reason Onset Date Comments Hospital Follow-up 12/15/2023 Encounter Details Date Type Department Care Team ([facility] st Contact Info) Description 12/15/2023 Telephone [facility] MEDICINE [address] [place], [place] [id number] Name, MD Jay [address] [place] [address] Hospital Follow-up Social History Tobacco Use Types Packs/Day Years Used Date Smoking Tobacco: Former Cigarettes Smokeless Tobacco: Never Alcohol Use Standard Drinks/Week Comments Never 0 (1 standard drink = 0.6 oz pur e alcohol) Depression Answer Date Recorded Patient Health Questionnaire-9 Score 11 11/20/2023 Patient Health Questionnaire-9 Score 11 11/20/2023 Last PHQ-9: Questionnaire Data Not on file 0 11/20/2023 Housing Stability Answer Date Recorded What is your housing situation today? I have giovani milligan 05/06/[address] you li ve. Do you have problems with any of the following? None of the above 05/06/2023 Food Insecurity Answer Date Recorded Within the past 12 months, y ou worried that your food would run out before you got money to buy more: Never True 05/06/2023 Within the past 12 months,th e food you bought just didn't last and you didn't have enough money to get more: Never True 08/2023 Transportation Answer Date Recorded In the past 12 months, has l ack of transportation kept you from medical appts, meetings, work or from getting things needed for daily living? No 05/06/2023 Utilities Answer Date Recorded In the past 12 months, has t he electric, gas, oil or water company threatened to shut off services in your home? No 05/06/2023 Depression Answer Date Recorded Patient Health Questionnaire-2 Score 2 11/20/2023 Comments Unknown Sex and Gender Information Value Date Recorded Sex Assigned at Female 12/30/2021 10:29 AM EDT Legal Sex Female 10:29 AM EDT Gender Identity Female 12/30/2021 10:29 AM EDT Sexual Orientation Straight 12/30/2021 10 :29 AM EDT documented as of this encounter Miscellaneous Notes * Telephone Encounter - Cb Valle - 12/15/2023 2:39 PM EDT Tc from pt requesting a HDF appt. Hospital: [facility] Date of admission: 12/10/23 Discharge date: 12/14/23 Diagnosed: Asthma Attack (Kazakh Speaker) documented in this encounter Plan of Treatment Not on file documented as of this encounter Visit Diagnoses Not on filedocumented in this encounter Additional Health Concerns Assessment Noted Time PHQ-9 Depression Total Score: 11 024 9:40 AM EDT documented as of this encounter Care Teams Position Clerk Relationship Specialty Start Date End Date Name, MD Jay [address] [place] [address] PCP - General Family Medicine 03/02/18 documented as of this encounter
--- OUTSIDE RECORDS SUMMARY | 2024-04-05 11:50 | XMS_ITS | Encounter Summary ---
Author Organization [employer] Address [address] [place] [address] Care Team Providers Care Doughnut Glazier Name Role Phone Name, Jay PHAM Primary Care Provider [phone] Reason for Visit * Reason Onset Date Comments chart prep 03/14/2024 Encounter Details Date Type Department Care Team ([facility] st Contact Info) Description 03/14/2024 Telephone [facility] MEDICINE [address] [place], [place] [phone] Keyana Ledbetter MA chart prep Social History Tobacco Use Types Packs/Day Years Used Date Smoking Tobacco: Former Cigarettes Passive Smoke Exposure: Never Smokeless Tobacco: Never Alcohol Use Standard Drinks/Week [...] encounter Miscellaneous Notes * Telephone Encounter - Keyana Ledbetter MA - 03/14/2024 11:19 AM EST Chart Prep Labs: done Images: done Vaccines due: yes Referrals: none Screenings: colonoscopy Overdue care gaps: Sbirt, SDOH, PHQ-9, BRYCE-7 documented in this encounter Plan of Treatment Not on file documented as of this encounter Visit Diagnoses Not on filedocumented in this encounter Additional Health Concerns Assessment Noted Time PHQ-9 Depression Total Score: 11 024 9:40 AM EDT documented as of this encounter Care Teams Doughnut Glazier Relationship Specialty Start Date End Date Name, MD Jay [address] [place] [address] PCP - General Family Medicine 03/02/18 documented as of this encounter
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
--- OUTSIDE RECORDS SUMMARY | 2024-04-05 11:50 | XMS_ITS | Encounter Summary ---
Author Organization [facility] Address [address] [facility] [address] [place] [phone] Phone Care Team Providers Care Primary Counselor Name Role Phone Name, Jay PHAM Primary Care Provider Unavailabl e Reason for Visit * Reason Comments Med Refill Encounter Details Date Type Department Care Team (Late Contact Info) Description 09/25/2022 Refill [facility] [address] [facility] [address] [place] [phone] Amandeep Stuart MD Social History Tobacco Use Types Packs/Day Years Used Date Smoking Tobacco: Never Assessed Alcohol Use Standard Drinks/Week Comments Not Currently 0 (1 standard drink = 0.6 oz pur e alcohol) Comments Unknown Sex and Gender Information Value Date Recorded Sex Assigned at Not on file Legal Sex Female 11:45 AM EDT Gender Identity Not on file Sexual Orientation Not on file documented as of this encounter Plan of Treatment Upcoming Encounters Date Type Department Care Team (Late st Contact Info) Description 09/05/2024 3:45 PM EDT Office Visit [facility] [address] [place] [phone] Ander Sen MD [phone] [facility] [address] [place] [phone] documented as of this encounter Visit Diagnoses Not on filedocumented in this encounter Care Teams Primary Counselor Relationship Specialty Start Date End Date Name, MD Jay [address] [place] [address] PCP - General Internal Medicine 12/07/20 documented as of this encounter
--- OUTSIDE RECORDS SUMMARY | 2024-04-05 11:50 | XMS_ITS | Encounter Summary ---
Author Organization [employer] Address [address] [facility] 7t [place] [address] Care Team Providers Care Striper Machine Name Role Phone Name, Jay PHAM Primary Care Provider [phone] Reason for Visit * Reason Comments Med Refill Encounter Details Date Type Department Care Team ([facility] st Contact Info) Description 05/07/2022 Refill [facility] [address] [place], [place] [phone] Name, MD Jya [address] [place] [address] Social History Tobacco Use Types Packs/Day Years Used Date Smoking Tobacco: Never Smokeless Tobacco: Never Depression Answer Date Recorded Patient Health Questionnaire-2 Score 0 04/23/2022 Comments Unknown Sex and Gender Information Value Date Recorded Sex Assigned at Female 12/30/2021 10:29 AM EDT Legal Sex Female 10:29 AM EDT Gender Identity Female 12/30/2021 10:29 AM EDT Sexual Orientation Straight 12/30/2021 10 :29 AM EDT COVID-19 Exposure Response Date Recorded In the last 10 days, have renee fabian been in contact with someone who was confirmed or suspected to have Coronavirus/COVID-19? No / Unsure 04/23/2022 10:33 AM EST documented as of this encounter Plan of Treatment Not on file documented as of this encounter Visit Diagnoses Not on filedocumented in this encounter Care Teams Striper Machine Relationship Specialty Start Date End Date Name, MD Jay [address] [place] [address] [phone] PCP - General Family Medicine 03/02/18 documented as of this encounter
--- OUTSIDE RECORDS SUMMARY | 2024-04-05 11:50 | XMS_ITS | Encounter Summary ---
Author Organization [employer] Address [address] 7t [place] [address] Care Team Providers Care Terminal Makeup Operator Name Role Phone Name, Jay PHAM Primary Care Provider [phone] Reason for Visit * Reason Comments Med Refill Encounter Details Date Type Department Care Team ([facility] st Contact Info) Description 03/12/2024 Refill [facility] [address] [place], [place] [phone] Name, MD Jay [address] [place] [address] Social History Tobacco Use Types Packs/Day Years [...] AM EDT documented as of this encounter Plan of Treatment Not on file documented as of this encounter Visit Diagnoses Not on filedocumented in this encounter Additional Health Concerns Assessment Noted Time PHQ-9 Depression Total Score: 11 024 9:40 AM EDT documented as of this encounter Care Teams Terminal Makeup Operator Relationship Specialty Start Date End Date Name, MD Jay [address] [place] [id number] PCP - General Family Medicine 03/02/18 documented as of this encounter
--- OUTSIDE RECORDS SUMMARY | 2024-04-05 11:50 | XMS_ITS | Encounter Summary ---
Author Organization [employer] Address [address] [facility] [address] 7[address] [place] [address] Care Team Providers Care Building Drafter Name Role Phone Name, Jay PHAM Primary Care Provider [phone] Reason for Visit * Reason Comments Med Refill Encounter Details Date Type Department Care Team ([facility] st Contact Info) Description 03/27/2024 Refill [facility] [address] [place], [place] [phone] Name, MD Jay [address] [place] [address] Hypertension, essential Social History Tobacco Use Types Packs/Day Years [...] documented as of this encounter Visit Diagnoses Diagnosis Hypertension, essential Unspecified essential hypertension documented in this encounter Additional Health Concerns Assessment Noted Time PHQ-9 Depression Total Score: 10 025 1:13 PM EST documented as of this encounter Care Teams Building Drafter Relationship Specialty Start Date End Date Name, MD Jay [address] [place] [address] PCP - General Family Medicine 03/02/18 documented as of this encounter
--- OUTSIDE RECORDS SUMMARY | 2024-04-05 11:50 | XMS_ITS | Clinical Summary ---
Author Organization [facility] Address [address] [address] Phone Care Team Providers Care Coupler Name Role Phone Name, Jay PHAM Primary Care Provider Unavailabl e Allergies Active Allergy Reactions Criticality Noted Date Comments Ciprofloxacin Other (see comments) 05/14/2009 Latex 05/10/2021 Loracarbef 06/24/2010 Milnacipran Hives 05/10/2021 Oxycodone-Acetaminophe n Itching,Other (see comments) 05/14/2009 Penicillins Other (see comments) 09/29/2013 Previously recorded as penicillamine Simvastatin Other (see comments) 05/14/2009 Vancomycin Other (see comments),Swelling 05/14/2009 Medications Spiriva Respimat 1.25 MCG/ACT aerosol solution 1 Active predniSONE (DELTASONE) 20 MG tablet 10 mg 1 Active LORazepam (ATIVAN) 1 MG tablet 3 (three) times a day 1 Active hydroCHLOROthiaz selwyn (MICROZIDE) 12.5 MG capsule Take 1 capsule by mouth 1 (one) time each day 9 Active fluticasone (FLONASE) 50 MCG/ACT nasal spray 2 sprays each nostril twice daily x 1 week then once daily as needed. 5 Active FLUoxetine (PROzac) 20 MG tablet Take 20 mg by mouth 1 (one) time each day Active albuterol HFA (PROVENTIL HFA;VENTOLIN HFA) 108 (90 Base) MCG/ACT inhaler Inhale 2 puffs every 6 (six) hours if needed for wheezing Active mometasone-formo terol (Dulera) 200-5 MCG/ACT inhaler Inhale 2 puffs 2 (two) times a day Rinse mouth with water after use to reduce aftertaste and incidence of candidiasis. Do not swallow. Active valsartan (DIOVAN) 80 MG tabletIndication s:Essential (primary) hypertension Take 1 tablet (80 mg total) by mouth 1 (one) time each day 90 tablet 3 5 Active valsartan (DIOVAN) 80 MG tabletIndication s:Essential (primary) hypertension TAKE 1 TABLET (80 MG) BY MOUTH IN THE MORNING 90 tablet 1 4 025 Discontin ued(Reord er (does not appear on AVS)) losartan (COZAAR) 50 MG tablet TAKE 1 TABLET BY MOUTH 1 TIME EACH DAY. 90 tablet 3 4 025 Discontin ued(Formu rosemary change) Active Problems Problem Noted Date Diagnosed Date Essential hypertension 08/11/2022 Shoulder pain 04/23/2022 Severe persistent asthma 04/23/2022 Infection caused by Helicobacter pylori 04/23/19 23 Cholelithiasis without obstruction 04/23/2022 Vascular insufficiency 04/23/2022 Major depressive disorder 12/27/2020 Essential (primary) hypertension 12/27/2020 Recurrent sinusitis 05/24/2018 Pain of knee region 05/24/2018 Migraine without aura, not refractory 03/03/2017 Varicose veins of lower extremity 09/10/2016 H/O: hysterectomy 06/11/2016 Acute maxillary sinusitis 06/11/2016 Vertigo 02/12/2016 Cervicalgia 08/04/2012 Allergic rhinitis 10/09/2010 Eczema 05/20/2010 Gastroesophageal reflux disease 05/20/2010 Hyperlipidemia 10/24/2009 Anxiety 08/21/2009 Fibromyalgia 06/06/2009 Migraine 06/06/2009 Overview (12/27/2020): Without aura Asthma 05/14/2009 Encounters Date Type Department Care Team Description 03/21/2024 Refill [facility] [address] [address] Diane Amaral [place] Essential (primary) hypertension from Last 3 Months Immunizations Name Administration Dates Next Due H1N1 Inj Preservative Free 05/14/2009 Influenza TIV (IM) 03/25/2013,11/06/2010, 011 Influenza, Quadrivalent, With Preservative 12/12,01/29/2016 PPD Test 06/24/2010 Pneumococcal Polysaccharide 03/04/2010 Td 04/30/2005 Tdap 02/12/2016,04/30/2005 Family History Medical History Relation Comments Heart disease Father Hypertension Father Dementia Mother Hypertension Mother Relation Status Comments Father Mother Social History Tobacco Use Types Packs/Day Years Used Date Smoking Tobacco: Never Assessed Tobacco Cessation:Counseling Given: No Alcohol Use Standard Drinks/Week Comments Not Currently 0 (1 standard drink = 0.6 oz pur e alcohol) Comments Unknown Sex and Gender Information Value Date Recorded Sex Assigned at Not on file Legal Sex Female 11:45 AM EDT Gender Identity Not on file Sexual Orientation Not on file Last Filed Vital Signs Vital Sign Reading Time Taken Comments Blood Pressure 124/62 08/11/2022 1:02 PM EDT Pulse 91 08/11/2022 1:02 PM EDT Temperature - - Respiratory Rate - - Oxygen Saturation 95% 08/11/2022 1:02 PM EDT Inhaled Oxygen Concentration - - Weight 60.1 kg (132 lb 9.6 oz) 08/11/2022 1:02 P M EDT Height - - Body Mass Index - - Plan of Treatment Upcoming Encounters Date Type Department Care Team (Late st Contact Info) Description 09/05/2024 3:45 PM EDT Office Visit [facility] [address] [place] [address] Ander Sen MD [address] [facility] [address] [place] [address] Health Maintenance Due Date Last Done Comments Breast Cancer Screening 1955 Colorectal Cancer Screening: Annual FOBT 05/23/2003 Colorectal Cancer Screening: Colonoscopy 05/23/2003 Colorectal Cancer Screening: Sigmoidoscopy 05/23/2003 Pneumococcal Vaccine: 65+ Years (2 of 2 - PCV) 03/04/2011 03/04/2010 Influenza Vaccine (#1) 2023 7, 01/29/2016, 03/25/2013, Additional history exists Hepatitis B Vaccine Aged Out No longe r eligible based on patient's age to complete this topic Insurance [facility] ([id number]) [facility] ([id number]) Care Teams Coupler Relationship Specialty Start Date End Date Name, MD Jay [address] [place] [id number] PCP - General Internal Medicine 12/07/20
--- OUTSIDE RECORDS SUMMARY | 2024-04-05 11:50 | XMS_ITS | Encounter Summary ---
Author Organization [facility] Address [address] [facility] [address] [place] [address] Phone Care Team Providers Care Apron Operator Name Role Phone Name, Jay PHAM Primary Care Provider Unavailabl e Reason for Visit * Reason Onset Date Comments Med Refill 03/21/2024 Encounter Details Date Type Department Care Team (Late Contact Info) Description 03/21/2024 Refill [facility] [address] [facility] [address] [place] [address] Diane Amaral [place] [address] [facility] [address] [place] [address] Essential (primary) hypertension Social History Tobacco Use Types Packs/Day Years [...] Office Visit [facility] [address] [place] [address] Ander Sen MD [address] [facility] [address] [place] [address] documented as of this encounter Visit Diagnoses Diagnosis Essential (primary) hypertension documented in this encounter Care Teams Apron Operator Relationship Specialty Start Date End Date Name, MD Jay [address] [place] [id number] PCP - General Internal Medicine 12/07/20 documented as of this encounter
--- OUTSIDE RECORDS SUMMARY | 2024-04-05 11:50 | XMS_ITS | Encounter Summary ---
Author Organization [employer] Address [address] [facility] [address] 7[address] [place] [address] Care Team Providers Care Dispensing Audiologist Name Role Phone Name, Jay PHAM Primary Care Provider [phone] Reason for Visit * Reason Comments Follow-up Encounter Details Date Type Department Care Team ([facility] st Contact Info) Description 03/22/2024 11:30 AM EST Office Visit [facility] [address] [place], [place] [phone] Name, MD Jay [address] [place], [place] [phone] Severe persistent asthma, unspecified whether complicated (Primary Dx); Hypertension, unspecified type; Eczema, unspecified type; Osteopenia, unspecified location Social History Tobacco Use Types Packs/Day Years [...] AM EDT documented as of this encounter Last Filed Vital Signs Vital Sign Reading [...] Mass Index 23.17 03/22/2024 11:14 AM EST documented in this encounter Progress Notes * Jay Moore MD - 03/22/2024 11:30 AM EST Subjective Patient ID: Kaitlin Munguia is a 68 y.o. female who presents for Follow-up. Patient comes for a follow-up visit. We discussed several issues. Asthma has been relatively well-controlled lately. She is using her inhalers daily as prescribed. She continues to follow with pulmonary. She continues to refuse the use of biologicals. She refuses any vaccination. BP is well-controlled. She is using medications as prescribed. She agrees to recheck BMP. Patient tells me she was recently diagnosed with osteopenia. She had bone density ordered by her drug abuse treatment specialist. She has been to refill her vitamin D supplements and I agreed. We discussed importance of weightbearing exercise and adequate calcium dietary intake. Review of Systems Constitutional: Negative for chills and fever. HENT: Negative for sore throat. Respiratory: Negative for cough, shortness of breath and wheezing. Cardiovascular: Negative for chest pain, palpitations and leg swelling. Gastrointestinal: Negative for abdominal pain. Visit Vitals BP 140/84 (BP Location: Left arm, Patient Position: Sitting, BP Cuff Size: Adult) Pulse 97 Temp 98.7 ??F (37.1 ??C) (Temporal) Resp 22 Ht 5' 3 (1.6 m) Wt 130 lb 12.8 oz (59.3 kg) SpO2 98% BMI 23.17 kg/m?? Smoking Status Former BSA 1.62 m?? Objective Physical Exam Constitutional: Appearance: Normal appearance. Cardiovascular: Rate and Rhythm: Normal rate and regular rhythm. Heart sounds: No murmur heard. No gallop. Pulmonary: Effort: Pulmonary effort is normal. No respiratory distress. Breath sounds: Normal breath sounds. No wheezing. Musculoskeletal: Right lower leg: No edema. Left lower leg: No edema. Neurological: Mental Status: She is alert. Assessment/Plan Diagnoses and all orders for this visit: Severe persistent asthma, unspecified whether complicated Comments: Continue current inhalers as prescribed by pulmonary, continue following with pulmonary Hypertension, unspecified type Comments: Continue current med and recheck BMP Orders: - Basic Metabolic Panel; Future Eczema, unspecified type Comments: I refilled topical steroid as she requested. This was originally prescribed by dermatology Orders: - triamcinolone (Kenalog) 0.1 % ointment; Apply 1 Application. topically 2 times daily. As needed for flares Osteopenia, unspecified location Comments: I recommended daily vit D, exercise, increase Ca in her diet Orders: - cholecalciferol (Vitamin D-3) 25 MCG (1000 UT) capsule; Take 1 capsule (25 mcg) by mouth Once perday. documented in this encounter Plan of Treatment Not on file documented as of this encounter Procedures Procedure Name Priority Date/Time Associated Diagnosis Comments BASIC METABOLIC PANEL Routine 03/22/2024 11:54 AM EST Hypertension, unspecified type documented in this encounter Results * (ABNORMAL) Basic Metabolic Panel (03/22/2024 11:54 AM EST) Sodium 143 135 - 145 mmol/L [facility] Potassium 3.8 3.3 - 5.1 mmol/L [facility] Chloride 109(H) 96 - 108 mmol/L [facility] Carbon Dioxide 26 22 - 29 mmol/L [facility] Anion Gap 12 12 - 20 [facility] Urea Nitrogen (BUN) 15 9 - 16 mg/dL [facility] Creatinine, Serum 0.54 0.5 - 1.4 mg/dL [facility] Estimated Glomerular Filt Rate >60 [facility] Comment:Chronic Kidney Disea se: Estimated GFR < 60 mL/min/[id number] Kidney Disease: Estimated GFR < 15 mL/min/1.73m2 Glucose 86 60 - 115 mg/dL [facility] Calcium 9.4 8.4 - 10.2 mg/dL [facility] Blood Venous blood specimen / Unknown 03/22/2024 11:54 AM EST 03/22/2024 1:38 PM EST Jay Moore MD LAB BLOOD ORDERABLES Final Resul t Performing Organization Address City/State/[facility] Co de Phone Number [facility] [address] [place] [phone] documented in this encounter Visit Diagnoses Diagnosis Severe persistent asthma, unspecified whether complicated- Primary Hypertension, unspecified type Eczema, unspecified type Osteopenia, unspecified location documented in this encounter Additional Health Concerns Assessment Noted Time PHQ-9 Depression Total Score: 10 025 1:13 PM EST documented as of this encounter Care Teams Dispensing Audiologist Relationship Specialty Start Date End Date Name, MD Jay [address] [place] [address] PCP - General Family Medicine 03/02/18 documented as of this encounter
--- OUTSIDE RECORDS SUMMARY | 2024-04-05 11:50 | XMS_ITS | Encounter Summary ---
Author Organization [employer] Address [address] [facility] [address] 7[address] [place] [address] Care Team Providers Care Computer Networking Instructor Name Role Phone Name, Jay PHAM Primary Care Provider [phone] Reason for Visit * Reason Onset Date Comments Durable Medical Equipment 03/24/2024 Encounter Details Date Type Department Care Team ([facility] st Contact Info) Description 03/24/2024 Telephone [facility] [address] [place], [place] [phone] Name, MD Jay [address] [place], [place] [phone] Durable Medical Equipment Social History Tobacco Use Types Packs/Day Years [...] encounter Miscellaneous Notes * Telephone Encounter - Kaitlin Cornell - 03/24/2024 11:13 AM EST Confirmation of order for gloves and incontinence supplies signed and faxed to [facility] Fax confirmation received and sent to scan. documented in this encounter Plan of Treatment Not on file documented as of this encounter Visit Diagnoses Not on filedocumented in this encounter Additional Health Concerns Assessment Noted Time PHQ-9 Depression Total Score: 10 025 1:13 PM EST documented as of this encounter Care Teams Computer Networking Instructor Relationship Specialty Start Date End Date Name, MD Jay [address] [place] [address] PCP - General Family Medicine 03/02/18 documented as of this encounter
--- OUTSIDE RECORDS SUMMARY | 2024-04-05 11:50 | XMS_ITS | Encounter Summary ---
Author Organization [employer] Address [address] [facility] [address] 7[address] [place] [address] Care Team Providers Care Barrel Inspector Tight Name Role Phone Name, Jay PHAM Primary Care Provider [phone] Encounter Details Date Type Department Care Team ([facility] st Contact Info) Description 03/09/2024 Telephone [facility]INE [address] [place], [place] [phone] Name, MD Jay [address] [place], [place] [phone] Social History Tobacco Use Types Packs/Day Years [...] encounter Miscellaneous Notes * Telephone Encounter - Henrry Lennon RN - 03/09/2024 11:18 AM EST Confirmation of order for incontinence supplies from [facility] placed on PCP desk for signature. documented in this encounter Plan of Treatment Not on file documented as of this encounter Visit Diagnoses Not on filedocumented in this encounter Additional Health Concerns Assessment Noted Time PHQ-9 Depression Total Score: 11 024 9:40 AM EDT documented as of this encounter Care Teams Barrel Inspector Tight Relationship Specialty Start Date End Date Name, MD Jay [address] [place] [address] PCP - General Family Medicine 03/02/18 documented as of this encounter
== END 2024-04-05 11:30 | disposition home or self-care (01) ==
PROVIDERS: PCP Internal Medicine Geriatric Medicine; Visit Provider Hospitalist
DX: J45.51 Severe persistent asthma with (acute) exacerbation (principal); T78.40XA Allergy, unspecified, initial encounter; K21.00 Gastro-esophageal reflux disease with esophagitis, without bleeding; L20.84 Intrinsic (allergic) eczema; J44.89 Other specified chronic obstructive pulmonary disease
CPT/HCPCS: 99214

== ENCOUNTER → 2024-04-05 10:55 | Outpatient (BNVA) | payer OTHER, SELFPAY | PROVIDERS: PCP Internal Medicine Geriatric Medicine; Visit Provider Hospitalist | DX: J45.51 Severe persistent asthma with (acute) exacerbation (principal); J44.89 Other specified chronic obstructive pulmonary disease; L20.84 Intrinsic (allergic) eczema; K21.00 Gastro-esophageal reflux disease with esophagitis, without bleeding; T78.40XD Allergy, unspecified, subsequent encounter | CPT/HCPCS: 99212 ==

== ENCOUNTER 2024-04-21 12:38 | Outpatient (AMB) | payer OTHER, SELFPAY ==
[2024-04-21 12:50] VITALS: BP 100/62; PULSE 85; BMI 23.1
--- NOTE | 2024-04-21 12:50 | A.OFFVIS_ITS ---
Vital Signs 04/21/24 12:50 Height 5 ft 3 in Weight 130 lb 8.218 oz BMI 23.1 BP 100/62 Blood Pressure Location Lt brachial Position Sitting Pulse 85 Pulse Source Pulse Oximeter Intake Visit Reasons: 6 mth f/up Industrial Mechanic Required: Yes Industrial Mechanic Language: Day Haul Or Farm Charter Bus Driver Name: voice [phone] José Luis Allergies ciprofloxacin [From Cipro] Allergy (Intermediate, Verified 04/21/24 12:54) HIVES/ITCHING oxycodone [Percocet] Allergy (Intermediate, Verified 04/21/24 12:54) Hives Penicillins Allergy (Intermediate, Verified 04/21/24 12:54) HIVES/ITCHING simvastatin [Simvastatin] Allergy (Intermediate, Verified 04/21/24 12:54) HIVES/ITCHINIG vancomycin [Vancomycin] Allergy (Intermediate, Verified 04/21/24 12:54) HIVES/ITCHING latex Allergy (Mild, Verified 04/21/24 12:54) Rash milnacipran [From Savella] Allergy (Mild, Verified 04/21/24 12:54) Hives Sulfa (Sulfonamide Antibiotics) Allergy (Mild, Verified 04/21/24 12:54) Shortness of Breath dupilumab [From Dupixent Pen] Adverse Reaction (Intermediate, Verified 04/21/24 12:54) neuropathy Medication List - Last Reconciled 04/21/24 by Vashti Hendricks TRAINING INTERN-C albuterol sulfate 2.5 mg (3 mL) inhalation Q6H PRN 30 days albuterol sulfate 90 mcg/actuation 2 puffs PO Q4H PRN albuterol sulfate 90 mcg/actuation (Ventolin HFA) 2 puffs inhalation QID PRN 30 days amitriptyline 50 mg PO BEDTIME amlodipine 10 mg PO DAILY azelastine 2 sprays intranasal BID MDD allergies blood pressure test kit-large As directed waszqtksur-apopmkfv-xyvvbuplvb 160-9-4.8 mcg/actuation (Breztri Aerosphere) 2 inhalations inhalation BID fluoxetine 20 mg PO DAILY hydrochlorothiazide 1 cap PO DAILY inhalational spacing device (Aerochamber MV spacer) As directed ipratropium bromide 2 sprays intranasal TID PRN ketotifen fumarate 0.025%(0.035%) 1 drp ophthalmic (eye) BID PRN lorazepam 1 tab PO BID losartan 50 mg PO DAILY mometasone-formoterol 200-5 mcg/actuation (Dulera) 2 puffs inhalation BID 30 days montelukast 10 mg PO DAILY nebulizers As directed omeprazole 20 mg PO DAILY@0630 sucralfate (Carafate) 10 mL PO BID sumatriptan succinate 25 mg PO ONCE PRN tiotropium bromide 2.5 mcg/actuation (Spiriva Respimat) 2 puffs inhalation DAILY 30 days umeclidinium 62.5 mcg/actuation (Incruse Ellipta) 1 inh inhalation DAILY 30 days valsartan 80 mg PO DAILY HPI HPI 6 mth f/up: Details: Kaitlin is a 68-year-old female with past medical history of asthma, hypertension, prior abnormal EKG in the setting of uncontrolled hypertension, DVT who presents for follow-up. Today she reports that her asthma has been mostly controlled. She was hospitalized for it in December 2023. At this visit she does have some coughing and wheezes prompting the use of albuteral inhaler. She has not had any concerning chest discomfort. No palpitations, lightheadedness, presyncope, syncope, PND, orthopnea or edema. At times her blood pressure is high for unclear reason. She believes that anxiety may play a role in it. Taking meds as directed. Certified hygiene assistant used. [facility] Medical History Asthma-COPD overlap syndrome Asthma exacerbation Abnormal electrocardiogram [ECG] [EKG] Chest pain Bleeding hemorrhoids Eczema VERA positive DVT (deep venous thrombosis) Tachycardia Dyspnea Sinusitis Rash URI (upper respiratory infection) History of anesthesia problem Osteoarthritis Fibromyalgia GERD (gastroesophageal reflux disease) Cervicalgia Depression History of vertigo Varicose vein of leg Chronic pain of left knee Allergic rhinitis Anxiety Asthma Migraine Surgical History History of esophagogastroduodenoscopy (EGD) History of repair of right rotator cuff Hx of bilateral breast reduction surgery Hx of hemorrhoidectomy H/O varicose vein ligation and stripping Hx of colonoscopy Hx of hysterectomy Hx of appendectomy Hx laparoscopic cholecystectomy Status post right rotator cuff repair Family History Father No problems noted. Mother Family history of high blood pressure Dementia Social History Household Members: None Housing: Apartment Do you presently have visiting nurse or other home services: No Alcohol intake: former Comment: pt uses cane as baseline Patient Tobacco Use Status: Never used Tobacco Second Hand Smoke Exposure: No Advance Directives Date on File: 04/03/18 service: No Current occupational status: unemployed Current occupation: Left Handed Review of Systems Const All systems reviewed & are unremarkable except as noted in HPI and below Reports fatigue ENT Denies dizziness Card Denies chest pain, Denies chest pain at rest, Denies chest pain with activity, Denies rapid heart rate, Denies pedal edema, Denies edema, Denies leg edema, Denies lightheadedness, Denies palpitations, Reports dyspnea, Reports dyspnea on exertion and Denies orthopnea Resp Details: intermittent cough and wheeze from asthma Denies cough, Reports dyspnea and Reports dyspnea on exertion GI Denies hematochezia and Denies change in stool character Musc Denies abnormal gait, Reports limited range of motion, Reports muscle cramps, Denies muscle weakness, Denies numbness, Denies radiating pain into limb, Denies stiffness and Denies tingling Neuro Denies abnormal gait, Denies dizziness, Denies numbness and Denies tingling Endo Reports fatigue and Denies palpitations Physical Exam Vital Signs: Last Vital Signs Pulse 85 04/21/24 12:50 BP 100/62 04/21/24 12:50 BMI result Body Mass Index 23.1 Const General: cooperative, healthy appearing, comfortable and no acute distress Orientation/consciousness: patient oriented x3 Neck Neck: Yes normal visual inspection and Yes no JVD Resp Effort & Inspection: normal respiratory effort Auscultation: clear to auscultation bilaterally, no crackles, no rales, no rh onchi and no wheezes Cardio Jugular venous distension: no JVD Rate: regular rate Rhythm: regular rhythm Heart sounds: S1 normal heart sound present, S2 normal heart sound present, no murmurs and no rubs Neuro General: patient oriented x3 Extrem General: Yes normal to inspection and No no pedal edema Psych Appearance: grossly normal Mental Status: mental status grossly normal Speech and movement: Normal speech and movement present Assessment & Plan Assessment & Plan (1) Chest tightness: Code(s): R07.89 - Other chest pain Category: Medical Plan: Prior Reports of intermittent chest tightness that she related to an asthma sensation. She had EKG done 04/24/2022 in the setting migraine headache and elevated blood pressure readings showed ST abnormalities in the anterior and lateral leads. She has no cardiac history. Cardiac risk factors of age, hypertension, hyperlipidemia. A dobutamine nuclear stress test was done on 04/22/2023 showing normal myocardial perfusion imaging. Echocardiogram done 04/16/2023 showed EF 60-65%, grade 1 diastolic dysfunction, no valve abnormalities. EKG abnormalities were likely related to cardiac strain in the setting of hypertension. She has done well since that time. Today she denies any chest dicomfort. Her asthma bothers her at times. Blood pressure is controlled at this time, 100/62 at this visit. Previously suggested cardiology follow-up p.r.n. and she would like to follow with us periodically. Will arrange for Cardiology follow-up in 1 year, sooner if needed to evaluate blood pressure, symptoms. (2) Abnormal electrocardiogram [ECG] [EKG]: Code(s): R94.31 - Abnormal electrocardiogram [ECG] [EKG] Category: Medical Plan: As above (3) Asthma: Code(s): J45.909 - Unspecified asthma, uncomplicated Category: Medical Qualifiers: Asthma severity: severe Asthma persistence: persistent Asthma complication type: with acute exacerbation Qualified Code(s): J45.51 - Severe persistent asthma with (acute) exacerbation Plan: As above. Follows with pulmonology (4) Hypertension: Code(s): I10 - Essential (primary) hypertension Category: Medical Plan: History of hypertension. She reports it is elevated at times, when checked at home.- which could be in response to asthma symptoms they may be occurring then. Well controlled at present. No med changes. Plan Time spent on chart review, documentation, interview and assessment Coding Level of Care Code Est Pt Level 3 (04507) Complex EM visit Add On G2211 Diagnoses Chest tightness R07.89 Abnormal electrocardiogram [ECG] [EKG] R94.31 Severe persistent asthma with acute exacerbation J45.51 Asthma severity: severe Asthma persistence: persistent Asthma complication type: with acute exacerbation Hypertension I10 Time Spent (min) 24
--- OUTSIDE RECORDS SUMMARY | 2024-04-21 13:31 | XMS_ITS | Clinical Summary ---
Author Organization [employer] Address [address] [facility] [address] [place] [address] Care Team Providers Care Electron Beam Welder Name Role Phone Name, Jay PHAM Primary Care Provider [phone] Allergies Active Allergy Reactions Criticality Noted Date [...] of breath. 75 mL 1 12/30/19 24 025 Active mometasone-for moterol (Dulera 200) 200-5 MCG/ACT [...] per day. 30 capsule 11 03/22/19 25 026 Active triamcinolone (Kenalog) 0.1 % ointmentIndica tions:Eczema, [...] THE MORNING 90 capsule 1 09/28/19 24 025 Discontinued Active Problems Problem Noted Date Diagnosed Date [...] Type Department Care Team Description 03/27/2024 Refill [facility] [address] [place] [phone] Jay Moore MD Hypertension, essential 03/24/[address] [address] Jay Moore MD Durable Medical Equipment 03/22/2024 11:30 AM EST Office Visit [facility] [address] [place] [phone] Jay Moore MD Severe persistent asthma, unspecified whether complicated (Primary Dx); Hypertension, unspecified type; Eczema, unspecified type; Osteopenia, unspecified location 03/14/2024 Telephone [facility] [address] [place] [phone] Keyana Ledbetter MA chart prep 03/12/[address] [address] Jay Moore MD 03/09/[address] [address] Jay Moore MD from Last 3 Months Immunizations Name Administration Dates Next Due Influenza injectable quadriv alent IIV4 with preservative 12/12/2016,01/29/2016 Influenza, IIV3, injectable 03/25/2013, 1,03/04/2010 Novel [id number], preservative-free 05/14 PPD Test 06/24/2010 Pneumococcal Polysaccharide [...] 03/22/2024 11:54 AM EST Hypertension, unspecified type BI MAMMOGRAM SCREENING TOMOSYNTHESIS BILATERAL Routine 06/11/2023 12:12 PM EDT LIPID PANEL, STANDARD Routine 04/28/2022 11:01 AM EST from Last 3 Months or Most Recently Relevant to Health Maintenance Results * (ABNORMAL) Basic Metabolic Panel (03/22/2024 11:54 AM EST) Sodium 143 135 - 145 mmol/L [facility] Potassium 3.8 3.3 - 5.1 mmol/L [facility] Chloride 109(H) 96 - 108 mmol/L [facility] Carbon Dioxide 26 22 - 29 mmol/L [facility] Anion Gap 12 12 - 20 [facility] Urea Nitrogen (BUN) 15 9 - 16 mg/dL [facility] Creatinine, Serum 0.54 0.5 - 1.4 mg/dL [facility] Estimated Glomerular Filt Rate >60 [facility] Comment:Chronic Kidney Disea se: Estimated GFR < 60 mL/min/1.32m8Ekeghx Kidney Disease: Estimated GFR < 15 mL/min/1.73m2 Glucose 86 60 - 115 mg/dL [facility] Calcium 9.4 8.4 - 10.2 mg/dL [facility] Blood Venous blood specimen / Unknown 03/22/2024 11:54 AM EST 03/22/2024 1:38 PM EST us Jay Moore MD LAB BLOOD ORDERABLES Final Resul t [facility] [address] [place] [address] [phone] * BI Mammogram Screening Tomosynthesis Bilateral (06/11/2023 12:12 PM EDT) Anatomical Region Laterality Modality Breast Bilateral Mammography 06/11/2023 12:1 2 PM EDT Narrative 07/09/2023 4:17 AM EDT ? [facility] ? [address] ?[place] [address] ? Mammography Report ? Signed ? Patient: Ezra,Kaitlin ?MR#: [id number] ?? 3 ? : 1955 ?Acct:[id number] ? Age/Sex: 68 / F ?ADM Date: 06/11/23 ? Loc: HO.MAMMO ? Attending Dr: Jay Name MD ? Ordering Physician: Name,Jay PHAM ?Results: 2Benign Fi ?? ndings ? Date of Service: 06/11/23 ?Follow Up: 1 Year From Orig ?? inal Mammogram ? Procedure(s): MM tomosynthesis screening BI ?? Accession Number(s): [id number] ? cc: Name,Jay PHAM ? EXAMINATION: ?? [...] 0412 ? DD/ 1212 ? TD/TT: ? Campus Coordinator: ? Procedure Note Dondariater, Image - 07/09/2023 [facility] [place] [facility] [address] [place] [address] Mammography Report Signed Patient: Anish Munguia#: [id number] 3 : 5Acct:[id number] Age/Sex: 68 / FADM Date: 06/11/23 Loc: HO.MAMMO Attending Dr: Jay Moore MD Ordering Physician: Jay Moore MDResults: 2Benign Fi ndings Date of Service: 06/11/23Follow Up: 1 Year From Orig inal Mammogram Procedure(s): MM tomosynthesis screening BI Accession Number(s): [id number] cc: Jay Moore MD EXAMINATION: MM SCREENING [...] signed by Etelvina Valdez MD in OV> 07/09/232 DD/ 1212 TD/TT: Campus Coordinator: us Jay Name [facility] BI PROCEDURES Edited Result - Final * Lipid Panel, Standard (04/28/2022 11:01 AM EST) Triglycerides 171 mg/dL [facility] Comment:Desirable Triglyceri de: less than 150 mg/dLBorderline High Triglyceride 150-199 mg/dLHigh Triglyceride: 200-499 mg/dLVery High Triglyceride: greater than or equal to 5OO mg/dL Cholesterol 259 mg/dL [facility] Comment:Desirable Cholestero l: less than 200 mg/dLBorderline High Cholesterol: 200-239 mg/dLHigh Cholesterol: greater than 239 mg/dL LDL Cholesterol Calculated 190 mg/dl [facility] Comment:Desirable LDL: less than 100 mg/dLNear Optimal/Above Optimal LDL: 110- 129 mg/dLBorderline High LDL: 130-159 mg/dLHigh LDL: 160-189 mg/dLVery High LDL: greater than or equal to 190 mg/dL HDL Cholesterol 35 mg/dL [facility] Comment:Desirable HDL: great er than 40 mg/dL Note: This HDL assay may give artificially low results in patients with liver disease. 04/28/2022 11:0 1 AM EST 04/28/2022 11:01 AM EST us [facility] External Provider LAB BLO OD ORDERABLES Final Result [facility] [address] [place] [address] [phone] from Last 3 Months or Most Recently Relevant to Health Maintenance Insurance [facility] Care Teams Electron Beam Welder Relationship Specialty Start Date End Date Name, MD Jay [address] [place] [address] PCP - General Family Medicine 03/02/18
--- OUTSIDE RECORDS SUMMARY | 2024-04-21 13:31 | XMS_ITS | Encounter Summary ---
Author Organization [facility] Address [address] [place] [address] Care Team Providers Care Flight Inspector Name Role Phone Name, Jay PHAM Primary Care Provider Unavailabl e Name, Jay PHAM Primary Care Provider Unavailabl e Community, Pcp Primary Care Provider Unavailabl e Name, Jay PHAM Primary Care Provider Unavailabl e Encounter Details Date Type Department Care Team Description 03/07/2013 Sales Management Intern Report Medical Records [address] [place] [phone] Cezar Burks MD Social History Tobacco Use Types Packs/Day Years Used Date Smoking Tobacco: Former Cigarettes 0.3 Smokeless Tobacco: Never Comments:20 yrs Alcohol Use Standard Drinks/Week Comments No 0 (1 standard drink = 0.6 oz pur e alcohol) Sex Assigned at Date Recorded Not on file documented as of this encounter Plan of Treatment Not on file documented as of this encounter Visit Diagnoses Not on filedocumented in this encounter Care Teams Flight Inspector Relationship Specialty Start Date End Date Jay Moore MD PCP - General 05/03/09 04/10/15 Jay Moore MD PCP - General Internal Medicine 04/11/15 04/11/15 [facility], Pcp PCP - General Internal Medicine 04/12/15 02/04/18 Jay Moore MD PCP - General Internal Medicine 02/05/18 documented as of this encounter
--- OUTSIDE RECORDS SUMMARY | 2024-04-21 13:31 | XMS_ITS | Encounter Summary ---
Author Organization [facility] Address [address] [place] [address] Care Team Providers Care Payroll Supervisor Name Role Phone Name, Jay PHAM Primary Care Provider Unavailabl e Name, Jay PHAM Primary Care Provider Unavailabl e Community, Pcp Primary Care Provider Unavailabl e Name, Jay PHAM Primary Care Provider Unavailabl e Encounter Details Date Type Department Care Team Description 08/10/2014 Telephone Adult [address] [address] Jay Moore MD Social History Tobacco Use Types Packs/Day [...] on filedocumented in this encounter Care Teams Payroll Supervisor Relationship Specialty Start Date End Date Jay Moore MD PCP - General 05/03/09 04/10/15 Jay Moore MD PCP - General Internal Medicine 04/11/15 04/11/15 [facility], Pcp PCP - General Internal Medicine 04/12/15 02/04/18 Jay Moore MD PCP - General Internal Medicine 02/05/18 documented as of this encounter
--- OUTSIDE RECORDS SUMMARY | 2024-04-21 13:31 | XMS_ITS | Encounter Summary ---
Author Organization [employer] Address [address] [facility] [address] [place] [address] Care Team Providers Care Mechanic Recovery Name Role Phone Name, Jay PHAM Primary Care Provider [phone] Reason for Visit * Reason Comments Med Refill Encounter Details Date Type Department Care Team ([facility] st Contact Info) Description 05/07/2022 Refill [facility] [address], [place] [phone] Name, MD Jay [address] [place] [address] Social History Tobacco Use Types Packs/Day Years [...] on filedocumented in this encounter Care Teams Mechanic Recovery Relationship Specialty Start Date End Date Name, MD Jay [address] [place] [phone] PCP - General Family Medicine 03/02/18 documented as of this encounter
--- OUTSIDE RECORDS SUMMARY | 2024-04-21 13:31 | XMS_ITS | Encounter Summary ---
Author Organization [employer] Address [address] [place] [address] Care Team Providers Care Mandolin Repair Person Name Role Phone Name, Jay PHAM Primary Care Provider [phone] Reason for Visit * Reason Comments Follow-up Encounter Details Date Type Department Care Team ([facility] st Contact Info) Description 03/22/2024 11:30 AM EST Office Visit [facility] [address] [place], [place] [phone] Name, MD Jay [address] [place], [place] [phone] Severe persistent asthma, unspecified whether complicated (Primary [...] She had bone density ordered by her him specialist. She has been to refill her [...] EST) Sodium 143 135 - 145 mmol/L [facility] Potassium 3.8 3.3 - 5.1 mmol/L [facility] Chloride 109(H) 96 - 108 mmol/L [facility] Carbon Dioxide 26 22 - 29 mmol/L [facility] Anion Gap 12 12 - 20 [facility] Urea Nitrogen (BUN) 15 9 - 16 mg/dL [facility] Creatinine, Serum 0.54 0.5 - 1.4 mg/dL [facility] Estimated Glomerular Filt Rate >60 [facility] Comment:Chronic Kidney Disea se: Estimated GFR < 60 mL/min/1.90a1Kstlxr Kidney Disease: Estimated GFR < 15 mL/min/1.73m2 Glucose 86 60 - 115 mg/dL [facility] Calcium 9.4 8.4 - 10.2 mg/dL [facility] Blood Venous blood specimen / Unknown 03/22/2024 11:54 AM EST 03/22/2024 1:38 PM EST Jay Moore MD LAB BLOOD ORDERABLES Final Resul t Performing Organization Address City/State/[facility] Co de Phone Number [facility] [address] [place] [phone] documented in this encounter Visit Diagnoses Diagnosis Severe persistent asthma, unspecified whether complicated- Primary Hypertension, unspecified type Eczema, unspecified type Osteopenia, unspecified location documented in this encounter Additional Health Concerns Assessment Noted Time PHQ-9 Depression Total Score: 10 025 1:13 PM EST documented as of this encounter Care Teams Mandolin Repair Person Relationship Specialty Start Date End Date Name, MD Jay [address] [place] [address] PCP - General Family Medicine 03/02/18 documented as of this encounter
--- OUTSIDE RECORDS SUMMARY | 2024-04-21 13:31 | XMS_ITS | Encounter Summary ---
Author Organization [facility] Address [address] [place] [address] Care Team Providers Care Bottle Dealer Name Role Phone Name, Jay PHAM Primary Care Provider Unavailabl e Name, Jay PHAM Primary Care Provider Unavailabl e Community, Pcp Primary Care Provider Unavailabl e Name, Jay PHAM Primary Care Provider Unavailabl e Reason for Visit * Reason Comments E-prescribe Rx Request Encounter Details Date Type Department Care Team Description 04/04/2011 Refill Adult [address] [address] NameJay MD E-prescribe Rx Request Social History Tobacco Use Types Packs/Day Years Used Date Smoking Tobacco: Former Cigarettes 0.3 Smokeless Tobacco: Never Comments:20 yrs Alcohol Use Standard Drinks/Week Comments No 0 (1 standard drink = 0.6 oz pur e alcohol) Sex Assigned at Date Recorded Not on file documented as of this encounter Miscellaneous Notes * Telephone Encounter - Rere Cobian - 04/07/2011 9:58 AM EST Multiple order. documented in this encounter Plan of Treatment Not on file documented as of this encounter Visit Diagnoses Not on filedocumented in this encounter Care Teams Bottle Dealer Relationship Specialty Start Date End Date Jay Moore MD PCP - General 05/03/09 04/10/15 Jay Moore MD PCP - General Internal Medicine 04/11/15 04/11/15 Community, Pcp PCP - General Internal Medicine 04/12/15 02/04/18 Jay Moore MD PCP - General Internal Medicine 02/05/18 documented as of this encounter
--- OUTSIDE RECORDS SUMMARY | 2024-04-21 13:31 | XMS_ITS | Encounter Summary ---
Author Organization [facility] Address [address] [place] [address] Care Team Providers Care Envelope Patternmaker Name Role Phone Name, Jay PHAM Primary Care Provider Unavailabl e Name, Jay PHAM Primary Care Provider Unavailabl e Community, Pcp Primary Care Provider Unavailabl e Name, Jay PHAM Primary Care Provider Unavailabl e Encounter Details Date Type Department Care Team Description 08/30/2014 Release of Information Medical Records [address] [place] [id number] Abstract, Provider Social History Tobacco Use Types Packs/Day Years [...] on filedocumented in this encounter Care Teams Envelope Patternmaker Relationship Specialty Start Date End Date Jay Moore MD PCP - General 05/03/09 04/10/15 Jay Moore MD PCP - General Internal Medicine 04/11/15 04/11/15 [facility], Pcp PCP - General Internal Medicine 04/12/15 02/04/18 Jay Moore MD PCP - General Internal Medicine 02/05/18 documented as of this encounter
--- OUTSIDE RECORDS SUMMARY | 2024-04-21 13:31 | XMS_ITS | Encounter Summary ---
Author Organization [facility] Address [address] [place] [address] Care Team Providers Care Manager Primary Name Role Phone Name, Jay PHAM Primary Care Provider Unavailabl e Name, Jay PHAM Primary Care Provider Unavailabl e Community, Pcp Primary Care Provider Unavailabl e Name, Jay PHAM Primary Care Provider Unavailabl e Encounter Details Date Type Department Care Team Description 01/17/2013 Rhit Report Medical Records [address] [place] [address] Cezar Burks MD Social History Tobacco Use [...] on filedocumented in this encounter Care Teams Manager Primary Relationship Specialty Start Date End Date Jay Moore MD PCP - General 05/03/09 04/10/15 Jay Moore MD PCP - General Internal Medicine 04/11/15 04/11/15 [facility], Pcp PCP - General Internal Medicine 04/12/15 02/04/18 Jay Moore MD PCP - General Internal Medicine 02/05/18 documented as of this encounter
--- OUTSIDE RECORDS SUMMARY | 2024-04-21 13:31 | XMS_ITS | Encounter Summary ---
Author Organization [employer] Address [address] [place] [address] Care Team Providers Care Densitometrist Name Role Phone Name, Jay PHAM Primary Care Provider Reason for Visit * Reason Comments Med Refill Encounter Details Date Type Department Care Team ([facility] st Contact Info) Description 03/27/2024 Refill [facility] MEDICINE [address] [place], [place] [phone] Name, MD Jay [address] [place] [address] Hypertension, essential Social History Tobacco Use Types [...] documented as of this encounter Care Teams Densitometrist Relationship Specialty Start Date End Date Name, MD Jay [address] [place] [address] PCP - General Family Medicine 03/02/18 documented as of this encounter
--- OUTSIDE RECORDS SUMMARY | 2024-04-21 13:31 | XMS_ITS | Encounter Summary ---
Author Organization [employer] Address [address] [place] [address] Care Team Providers Care Commodities Manager Name Role Phone Name, Jay PHAM Primary Care Provider [phone] Reason for Visit * Reason Onset Date Comments Durable Medical Equipment 03/24/2024 Encounter Details Date Type Department Care Team ([facility] st Contact Info) Description 03/24/2024 Telephone [facility] MEDICINE [address] [place], [place] [phone] Name, MD Jay [address] [place], [place] [phone] Durable Medical Equipment Social History Tobacco Use [...] documented as of this encounter Care Teams Commodities Manager Relationship Specialty Start Date End Date Name, MD Jay [address] [place] [address] PCP - General Family Medicine 03/02/18 documented as of this encounter
--- OUTSIDE RECORDS SUMMARY | 2024-04-21 13:31 | XMS_ITS | Encounter Summary ---
Author Organization [facility] Address [address] [facility] [address] [place] [address] Phone Care Team Providers Care Partner Integration Planner Name Role Phone Name, Jay PHAM Primary Care Provider Unavailabl e Reason for Visit * Reason Comments Med Refill Encounter Details Date Type Department Care Team (Late Contact Info) Description 09/25/2022 Refill [facility] [address] [facility] [facility] [address] [place] [address] Amandeep Stuart MD Social History [...] Visit [facility] [address] [place] [phone] Ander Sen MD [address] [facility] [address] [place] [phone] documented as of this encounter Visit Diagnoses Not on filedocumented in this encounter Care Teams Partner Integration Planner Relationship Specialty Start Date End Date Name, MD Jay [address] [place] [address] PCP - General Internal Medicine 12/07/20 documented as of this encounter
--- OUTSIDE RECORDS SUMMARY | 2024-04-21 13:31 | XMS_ITS | Encounter Summary ---
Author Organization [facility] Address [address] [place] [address] Care Team Providers Care Refrigerating Engineer Head Name Role Phone Name, Jay PHAM Primary Care Provider Unavailabl e Name, Jay PHAM Primary Care Provider Unavailabl e Community, Pcp Primary Care Provider Unavailabl e Name, Jay PHAM Primary Care Provider Unavailabl e Encounter Details Date Type Department Care Team Description 10/17/2013 Health Technician Hearing Report Medical Records [address] [place] [address] Cezar Burks MD Social History Tobacco Use [...] on filedocumented in this encounter Care Teams Refrigerating Engineer Head Relationship Specialty Start Date End Date Jay Moore MD PCP - General 05/03/09 04/10/15 Jay Moore MD PCP - General Internal Medicine 04/11/15 04/11/15 [facility], Pcp PCP - General Internal Medicine 04/12/15 02/04/18 Jay Moore MD PCP - General Internal Medicine 02/05/18 documented as of this encounter
--- OUTSIDE RECORDS SUMMARY | 2024-04-21 13:31 | XMS_ITS | Encounter Summary ---
Author Organization [facility] Address [address] [place] [address] Care Team Providers Care Inside Technical Sales Representative Name Role Phone Name, Jay PHAM Primary Care Provider Unavailabl e Name, Jay PHAM Primary Care Provider Unavailabl e Community, Pcp Primary Care Provider Unavailabl e Name, Jay PHAM Primary Care Provider Unavailabl e Encounter Details Date Type Department Care Team Description 02/25/2012 Hospital Medical Records [address] [place] [address] Ney Bustamante Social History Tobacco Use Types Packs/Day Years [...] on filedocumented in this encounter Care Teams Inside Technical Sales Representative Relationship Specialty Start Date End Date Jay Moore MD PCP - General 05/03/09 04/10/15 Jay Moore MD PCP - General Internal Medicine 04/11/15 04/11/15 [facility], Pcp PCP - General Internal Medicine 04/12/15 02/04/18 Jay Moore MD PCP - General Internal Medicine 02/05/18 documented as of this encounter
--- OUTSIDE RECORDS SUMMARY | 2024-04-21 13:31 | XMS_ITS | Clinical Summary ---
Author Organization [facility] Address [address] [phone] Phone Care Team Providers Care Auxiliary Powerplant Operator Name Role Phone Name, Jay PHAM [...] 3 (three) times a day 1 Active hydroCHLOROthiazi de (MICROZIDE) 12.5 MG capsule Take 1 capsule [...] (six) hours if needed for wheezing Active mometasone-formot arturo (Dulera) 200-5 MCG/ACT inhaler Inhale 2 puffs 2 (two) times a day Rinse mouth with water after use to reduce aftertaste and incidence of candidiasis. Do not swallow. Active valsartan (DIOVAN) 80 MG tabletIndications :Essential (primary) hypertension Take 1 tablet (80 mg total) by mouth 1 (one) time each day 90 tablet 3 5 Active Active Problems Problem Noted Date Diagnosed Date [...] 03/21/2024 Refill [facility] [address] [phone] Diane mAaral [place] Essential (primary) hypertension from Last 3 [...] Visit [facility] [address] [place] [address] Ander Sen MD [address] [facility] [address] [place] [phone] Health Maintenance Due Date Last Done Comments [...] patient's age to complete this topic Insurance [facility] ([id number]) [facility] ([id number]) Care Teams Auxiliary Powerplant Operator Relationship Specialty Start Date End Date Name, MD Jay [address] [place] [address] PCP - General Internal Medicine 12/07/20
--- OUTSIDE RECORDS SUMMARY | 2024-04-21 13:31 | XMS_ITS | Encounter Summary ---
Author Organization [facility] Address [address] [place] [address] Care Team Providers Care Side Laster Tack Name Role Phone Community, Pcp Primary Care Provider Unavailtomas e Jay Moore MD Primary Care Provider Unavailabl e Encounter Details Date Type Department Care Team Description 04/17/2016 Release of Information Medical Records [address] [place] [address] Abstract, Provider Social History Tobacco Use Types [...] on filedocumented in this encounter Care Teams Side Laster Tack Relationship Specialty Start Date End Date Community, Pcp PCP - General Internal Medicine 04/12/15 02/04/18 Jay Moore MD PCP - General Internal Medicine 02/05/18 documented as of this encounter
--- OUTSIDE RECORDS SUMMARY | 2024-04-21 13:32 | XMS_ITS | Encounter Summary ---
Author Organization [facility] Address [address] [place] [address] Care Team Providers Care Mortgage Loan Processing Clerk Name Role Phone Name, Jay PHAM Primary Care Provider Unavailabl e Encounter Details Date Type Department Care Team Description 10/05/2018 Release of Information Medical Records [address] [place] [address] Abstract, Provider Social History Tobacco Use Types [...] on filedocumented in this encounter Care Teams Mortgage Loan Processing Clerk Relationship Specialty Start Date End Date Name, MD Jay PCP - General Internal Medicine 02/05/18 documented as of this encounter
--- OUTSIDE RECORDS SUMMARY | 2024-04-21 13:32 | XMS_ITS | Encounter Summary ---
Author Organization [employer] Address [address] 7[address] [place] [address] Care Team Providers Care Security Systems Installer Name Role Phone Name, Jay PHAM Primary Care Provider [phone] Reason for Visit * Reason Onset Date Comments Hospital Follow-up 12/15/2023 Encounter Details Date Type Department Care Team ([facility] st Contact Info) Description 12/15/2023 Telephone [facility] MEDICINE [address] [place], [place] [phone] Name, MD Jay [address] [place] [address] Hospital Follow-up Social History Tobacco Use Types [...] from pt requesting a HDF appt. Hospital: [facility] Date of admission: 12/10/23 Discharge date: 12/14/23 Diagnosed: Asthma Attack (Tajik Speaker) documented in this encounter Plan of Treatment Not on file documented as of this encounter Visit Diagnoses Not on filedocumented in this encounter Additional Health Concerns Assessment Noted Time PHQ-9 Depression Total Score: 11 024 9:40 AM EDT documented as of this encounter Care Teams Security Systems Installer Relationship Specialty Start Date End Date Name, MD Jay [address] [place] [address] PCP - General Family Medicine 03/02/18 documented as of this encounter
--- OUTSIDE RECORDS SUMMARY | 2024-04-21 13:32 | XMS_ITS | Encounter Summary ---
Author Organization [facility] Address [address] [place] [address] Care Team Providers Care Reamer Hand Name Role Phone Name, Jay PHAM Primary Care Provider Unavailabl e Name, Jay PHAM Primary Care Provider Unavailabl e Community, Pcp Primary Care Provider Unavailabl e Name, Jay PHAM Primary Care Provider Unavailabl e Encounter Details Date Type Department Care Team Description 12/17/2010 Home Health Certification Medical Records [address] [place] [address] Social History Tobacco Use Types Packs/Day Years [...] on filedocumented in this encounter Care Teams Reamer Hand Relationship Specialty Start Date End Date Jay Moore MD PCP - General 05/03/09 04/10/15 Jay Moore MD PCP - General Internal Medicine 04/11/15 04/11/15 [facility], Pcp PCP - General Internal Medicine 04/12/15 02/04/18 Jay Moore MD PCP - General Internal Medicine 02/05/18 documented as of this encounter
--- OUTSIDE RECORDS SUMMARY | 2024-04-21 13:32 | XMS_ITS | Encounter Summary ---
Author Organization [facility] Address [address] [place] [address] Care Team Providers Care Epic Professional Name Role Phone Community, Pcp Primary Care Provider Unavailabl e Jay Moore MD Primary Care Provider Unavailabl e Reason for Visit * Reason Comments E-prescribe Rx Request Encounter Details Date Type Department Care Team Description 04/12/2015 Refill Adult Medicine [address] [address] Name, MD Jay E-prescribe Rx Request Social History Tobacco Use Types Packs/Day Years Used Date Smoking Tobacco: Former Cigarettes 0.3 Smokeless Tobacco: Never Comments:20 yrs Alcohol Use Standard Drinks/Week Comments No 0 (1 standard drink = 0.6 oz pur e alcohol) Sex Assigned at Date Recorded Not on file documented as of this encounter Miscellaneous Notes * Telephone Encounter - Chio Bellamy MD - 04/13/2015 11:27 AM EST Refill given; any further refills need to come from PCP at [facility] * Telephone Encounter - Rocio Thomas M.A. - 04/13/2015 9:49 AM EST Following Name Component Value Date ALB 4.4 12/07/2012 SGOT 17 08/04/2013 SGPT 14 08/04/2013 TBILI 0.2 12/07/2012 ALKPHOS 86 12/07/2012 TP 7.2 12/07/2012 * Telephone Encounter - Carrie Gilbert - 04/13/2015 9:32 AM EST Patient is going with Dr. Moore. She told [facility]. * Telephone Encounter - Tracy Hwang - 04/13/2015 9:18 AM EST Patient would like script to be: E-PRESCRIBED/FAXED TO PHARMACY WHEN WAS THE PATIENT'S LAST APPOINTMENT IN ADULT MEDICINE? 02/08/2015 WHEN WAS THE LAST TIME THE PATIENT SAW THEIR PCP? Same as above Does patient have an upcoming appointment? No-unable to reach left voicemaill to call for appointment due to refill request. Appt due Left message for patient to call back, need to know if patient will be following Dr Moore. (THE MEDICATION REQUESTED IS ON THE MED LIST ABOVE) All of the medications requested were on the CURRENT MEDS list Did you check the Pharmacy information above?: YES Patient wants: 30 -day supply Is this a mail order prescription request ? NO Patients current insurance carrier is: [place] / Plan: MEDICAID PCC / Product Type: MEDICAID [id number] documented in this encounter Plan of Treatment Not on file documented as of this encounter Visit Diagnoses Not on filedocumented in this encounter Care Teams Epic Professional Relationship Specialty Start Date End Date Community, Pcp PCP - General Internal Medicine 04/12/15 02/04/18 NameJay MD PCP - General Internal Medicine 02/05/18 documented as of this encounter
--- OUTSIDE RECORDS SUMMARY | 2024-04-21 13:32 | XMS_ITS | Encounter Summary ---
Author Organization [facility] Address [address] [place] [address] Care Team Providers Care Information Technology Audit Manager Name Role Phone Name, Jay PHAM Primary Care Provider Unavailabl e Name, Jay PHAM Primary Care Provider Unavailabl e Community, Pcp Primary Care Provider Unavailabl e Name, Jay PHAM Primary Care Provider Unavailabl e Encounter Details Date Type Department Care Team Description 03/14/2015 Release of Information Medical Records [address] [place] [address] Abstract, Provider Social History Tobacco Use Types [...] on filedocumented in this encounter Care Teams Information Technology Audit Manager Relationship Specialty Start Date End Date Jay Moore MD PCP - General 05/03/09 04/10/15 Jay Moore MD PCP - General Internal Medicine 04/11/15 04/11/15 [facility], Pcp PCP - General Internal Medicine 04/12/15 02/04/18 Jay Moore MD PCP - General Internal Medicine 02/05/18 documented as of this encounter
--- OUTSIDE RECORDS SUMMARY | 2024-04-21 13:32 | XMS_ITS | Encounter Summary ---
Author Organization [facility] Address [address] [place] [address] Care Team Providers Care Tie Puller Name Role Phone Name, Jay PHAM Primary Care Provider Unavailabl e Name, Jay PHAM Primary Care Provider Unavailabl e Community, Pcp Primary Care Provider Unavailabl e Name, Jay PHAM Primary Care Provider Unavailabl e Encounter Details Date Type Department Care Team Description 01/21/2011 Hospital Medical Records [address] [place] [address] Natacha Blank Social History Tobacco Use Types Packs/Day Years [...] on filedocumented in this encounter Care Teams Tie Puller Relationship Specialty Start Date End Date Jay Moore MD PCP - General 05/03/09 04/10/15 Jay Moore MD PCP - General Internal Medicine 04/11/15 04/11/15 [facility], Pcp PCP - General Internal Medicine 04/12/15 02/04/18 Jay Moore MD PCP - General Internal Medicine 02/05/18 documented as of this encounter
--- OUTSIDE RECORDS SUMMARY | 2024-04-21 13:32 | XMS_ITS | Encounter Summary ---
Author Organization [facility] Address [address] [place] [address] Care Team Providers Care Drapery Supervisor Name Role Phone Community, Pcp Primary Care Provider Unavailtomas e Jay Moore MD Primary Care Provider Unavailabl e Encounter Details Date Type Department Care Team Description 05/24/2015 Release of Information Medical Records [address] [place] [address] Abstract, Provider Social History Tobacco Use Types [...] on filedocumented in this encounter Care Teams Drapery Supervisor Relationship Specialty Start Date End Date Community, Pcp PCP - General Internal Medicine 04/12/15 02/04/18 Jay Moore MD PCP - General Internal Medicine 02/05/18 documented as of this encounter
--- OUTSIDE RECORDS SUMMARY | 2024-04-21 13:32 | XMS_ITS | Encounter Summary ---
Author Organization [facility] Address [address] [place] [address] Care Team Providers Care Tacking Stitch Remover Name Role Phone Community, Pcp Primary Care Provider Unavailtomas e Jay Moore MD Primary Care Provider Unavailabl e Encounter Details Date Type Department Care Team Description 07/22/2015 Hospital Medical Records [address] [place], [place] [phone] [place] [address] Social History Tobacco Use Types Packs/Day Years [...] on filedocumented in this encounter Care Teams Tacking Stitch Remover Relationship Specialty Start Date End Date Community, Pcp PCP - General Internal Medicine 04/12/15 02/04/18 Jay Moore MD PCP - General Internal Medicine 02/05/18 documented as of this encounter
== END 2024-04-21 13:17 | disposition home or self-care (01) ==
PROVIDERS: PCP Internal Medicine Geriatric Medicine; Visit Provider Nurse Practitioner Family
DX: R07.89 Other chest pain (principal); R94.31 Abnormal electrocardiogram [ECG] [EKG]; J45.51 Severe persistent asthma with (acute) exacerbation; I10 Essential (primary) hypertension
CPT/HCPCS: 99213; G2211

== ENCOUNTER → 2024-04-21 12:38 | Outpatient (BNVA) | payer OTHER, SELFPAY | PROVIDERS: PCP Internal Medicine Geriatric Medicine; Visit Provider Nurse Practitioner Family | DX: R07.89 Other chest pain (principal); R94.31 Abnormal electrocardiogram [ECG] [EKG]; J45.51 Severe persistent asthma with (acute) exacerbation; I10 Essential (primary) hypertension | CPT/HCPCS: 99212 ==

== ENCOUNTER 2024-06-09 10:04 | Outpatient (AMB) | payer OTHER, SELFPAY ==
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
[2024-06-09 10:11] VITALS: BP 130/74; PULSE 98; O2SAT 100; BMI 23.2
--- OUTSIDE RECORDS SUMMARY | 2024-06-09 11:42 | XMS_ITS | Encounter Summary ---
Author Organization [facility] Address [address] [place] [address] Care Team Providers Care Retail Banking Manager Name Role Phone Name, Jay PHAM Primary Care Provider Unavailabl e Name, Jay PHAM Primary Care Provider Unavailabl e Community, Pcp Primary Care Provider Unavailabl e Name, Jay PHAM Primary Care Provider Unavailabl e Encounter Details Date Type Department Care Team Description 08/30/2014 Release of Information Medical Records [address] [place] [id number] Abstract, Provider Social History Tobacco Use Types [...] on filedocumented in this encounter Care Teams Retail Banking Manager Relationship Specialty Start Date End Date Jay Moore MD PCP - General 05/03/09 04/10/15 Jay Moore MD PCP - General Internal Medicine 04/11/15 04/11/15 [facility], Pcp PCP - General Internal Medicine 04/12/15 02/04/18 Jay Moore MD PCP - General Internal Medicine 02/05/18 documented as of this encounter
--- OUTSIDE RECORDS SUMMARY | 2024-06-09 11:42 | XMS_ITS | Encounter Summary ---
Author Organization [facility] Address [address] [place] [address] Care Team Providers Care Recreation Manager Name Role Phone Name, Jay PHAM Primary Care Provider Unavailabl e Name, Jay PHAM Primary Care Provider Unavailabl e Community, Pcp Primary Care Provider Unavailabl e Name, Jay PHAM Primary Care Provider Unavailabl e Reason for Visit * Reason Onset Date Comments Testing 08/04/2012 MRI Encounter Details Date Type Department Care Team Description 08/04/2012 Telephone Adult Medicine [address] [address] NameJay MD Testing (MRI) Social History Tobacco Use Types Packs/Day Years Used Date Smoking Tobacco: Former Cigarettes 0.3 Smokeless Tobacco: Never Comments:20 yrs Alcohol Use Standard Drinks/Week Comments No 0 (1 standard drink = 0.6 oz pur e alcohol) Sex Assigned at Date Recorded Not on file documented as of this encounter Miscellaneous Notes * Telephone Encounter - Jay Moore MD - 08/04/2012 12:58 PM EDT Yes MRI of the brain. I will cancel the other order * Telephone Encounter - Eva Roberts - 08/04/2012 12:51 PM EDT , Can you please take a look at your order. Did you want MRI of Brain?? Thank you Eva documented in this encounter Plan of Treatment Not on file documented as of this encounter Visit Diagnoses Not on filedocumented in this encounter Care Teams Recreation Manager Relationship Specialty Start Date End Date Name, MD Jay PCP - General 05/03/09 04/10/15 Jay Moore MD PCP - General Internal Medicine 04/11/15 04/11/15 [facility], Pcp PCP - General Internal Medicine 04/12/15 02/04/18 Name, MD Jay PCP - General Internal Medicine 02/05/18 documented as of this encounter
--- OUTSIDE RECORDS SUMMARY | 2024-06-09 11:42 | XMS_ITS | Encounter Summary ---
Author Organization [facility] Address [address] [facility] [address] [place] [address] Phone Care Team Providers Care Technology Sales Specialist Name Role Phone Name, Jay PHAM Primary Care Provider Unavailabl e Reason for Visit * Reason Comments Med Refill Encounter Details Date Type Department Care Team (Late Contact Info) Description 09/25/2022 Refill [facility] [address] [facility] [address] [address] [place] [address] Amandeep Stuart MD Social History [...] Visit [facility] [address] [place] [phone] Ander Sen MD [address] [facility] [address] [place] [phone] documented as of this encounter Visit Diagnoses Not on filedocumented in this encounter Care Teams Technology Sales Specialist Relationship Specialty Start Date End Date Name, MD Jay [address] [place] [address] PCP - General Internal Medicine 12/07/20 documented as of this encounter
--- OUTSIDE RECORDS SUMMARY | 2024-06-09 11:42 | XMS_ITS | Clinical Summary ---
Author Organization [employer] Address [address] [place] [address] Care Team Providers Care Animated Cartoons Painter Name Role Phone Name, Jay PHAM Primary Care Provider [phone] Allergies Active Allergy Reactions Criticality Noted Date [...] MORNING 90 tablet 1 04/09/19 24 Active Blood Pressure kit For home use twice a day 1 kit 09/09/19 24 Active pravastatin (Pravachol) 20 MG tablet [...] mouth 2 times daily. 10/19/19 24 Active Roflumilast 250 MCG tablet Take [...] MORNING 90 capsule 1 03/28/19 25 Active amitriptyline (Elavil) 50 MG tabletIndicati ons:Migraine without status migrainosus, not intractable, unspecified migraine type TAKE 1 TABLET BY MOUTH EVERYDAY AT BEDTIME 90 tablet 1 05/05/19 25 Active omeprazole (PriLOSEC) [address] capsule TAKE 1 CAPSULE BY MOUTH EVERY DAY BEFORE BREAKFAST 90 capsule 3 05/06/19 25 Active ezetimibe (Zetia) 10 MG tablet TAKE 1 TABLET BY MOUTH EVERY DAY IN THE MORNING 90 tablet 3 06/02/19 25 Active ezetimibe (Zetia) 10 MG tablet TAKE 1 TABLET BY MOUTH EVERY DAY IN THE MORNING 90 tablet 3 06/11/19 24 025 Discontinued Active Problems Problem Noted [...] Encounters Date Type Department Care Team Description 06/01/2024 Refill [facility] [address] [place] [address] Jay Moore MD 05/05/2024 Refill [facility] [address] [place] [address] Jay Moore MD 05/04/2024 Refill [facility] [address] [place] [address] Jay Moore MD Migraine without status migrainosus, not intractable, unspecified migraine type 04/21/2024 Telephone [facility] [address] [place] [address] Keyana Ledbetter MA may recalls 03/27/2024 Refill [facility] [address] [place] [address] Jay Moore MD Hypertension, essential 03/24/2024 Telephone [facility] [address] [place] [address] Jay Moore MD Durable Medical Equipment 03/22/2024 11:30 AM EST Office Visit [facility] [address] [place] [address] Jay Moore MD Severe persistent asthma, unspecified whether complicated (Primary Dx); Hypertension, unspecified type; Eczema, unspecified type; Osteopenia, unspecified location 03/14/2024 Telephone [facility] [address] [place] [address] Keyana Ledbetter MA chart prep 03/12/2024 Refill [facility] [address] [place] [address] Jay Moore MD from Last 3 Months Immunizations Name Administration Dates Next Due Influenza injectable quadriv alent IIV4 with preservative 12/12/2016,01/29/2016 Influenza, IIV3, injectable 03/25/2013, 1,03/04/2010 Novel [id number], preservative-free 05/14 PPD Test 06/24/2010 Pneumococcal Polysaccharide [...] 03/22/2024 11:14 AM EST Plan of Treatment Upcoming Encounters Date Type Department Care Team (Late st Contact Info) Description 07/12/2024 1:00 PM EDT Office Visit [facility] [address] [place] [address] Name, MD Jay [address] [place] [address] Health Maintenance Due Date Last Done Comments [...] 01/29/2016, 03/25/2013, Additional history exists Depression Monitoring 09/19/2024 03/22/2024, 025 Alcohol/Substance Use Screening 03/22/2025 03/22/2024 Depression Screening [...] EST) Sodium 143 135 - 145 mmol/L [facility] Potassium 3.8 3.3 - 5.1 mmol/L [facility] Chloride 109(H) 96 - 108 mmol/L [facility] Carbon Dioxide 26 22 - 29 mmol/L [facility] Anion Gap 12 12 - 20 [facility] Urea Nitrogen (BUN) 15 9 - 16 mg/dL [facility] Creatinine, Serum 0.54 0.5 - 1.4 mg/dL [facility] Estimated Glomerular Filt Rate >60 [facility] Comment:Chronic Kidney Disea se: Estimated GFR < 60 mL/min/[id number] Kidney Disease: Estimated GFR < 15 mL/min/1.73m2 Glucose 86 60 - 115 mg/dL [facility] Calcium 9.4 8.4 - 10.2 mg/dL [facility] Blood Venous blood specimen / Unknown 03/22/2024 11:54 AM EST 03/22/2024 1:38 PM EST us Jay Name MD LAB BLOOD ORDERABLES Final Resul t [facility] [address] [place] [address] [phone] * BI Mammogram Screening Tomosynthesis Bilateral (06/11/2023 12:12 PM EDT) Anatomical Region Laterality Modality Breast Bilateral Mammography 06/11/2023 12:1 2 PM EDT Narrative 07/09/2023 4:17 AM EDT ? [facility] [place] ? [address] ?[place] [address] ? Mammography Report ? Signed ? Patient: EzraBlayneKaitlin ?MR#: [id number] ?? 3 ? : 1955 ?Acct:[id number] ? Age/Sex: 68 / F ?ADM Date: 04/11/24 ? Loc: HO.MAMMO ? Attending Dr: Jay Name MD ? Ordering Physician: Name,Jay MD ?Results: 2Benign Fi ?? ndings ? Date of Service: 04/11/24 ?Follow Up: 1 Year From Orig ?? inal Mammogram ? Procedure(s): MM tomosynthesis screening BI ?? Accession Number(s): [id number] ? cc: Name,Jay PHAM ? EXAMINATION: ?? [...] by Etelvina Valdez MD in OV> ? 07/09/23411 ? DD/ 11 ? TD/TT: ? Identification Printing Machine Setter: ? Procedure Note Matias, José Miguel - 07/09/2023 J Carlos [facility] [address] [place] [address] Mammography Report Signed Patient: Anish Munguia#: [id number] 3 : 5Acct:[id number] Age/Sex: 68 / FADM Date: 06/11/23 Loc: HO.MAMMO Attending Dr: Jay Moore MD Ordering Physician: Jay Moore MDResults: 2Benign Fi ndings Date of Service: 06/11/23Follow Up: 1 Year From Orig inal Mammogram Procedure(s): MM tomosynthesis screening BI Accession Number(s): [id number] cc: Name,Jay PHAM EXAMINATION: MM SCREENING DIGITAL BREAST TOMOSYNTHESIS, BILATERAL [...] signed by Etelvina Valdez MD in OV> 07/09/23 0412 DD/ 1212 TD/TT: Identification Printing Machine Setter: Jay Moore MD [facility] BI PROCEDURES Edited Result - Final * Lipid Panel, Standard (04/28/2022 11:01 AM EST) Triglycerides 171 mg/dL [facility] Comment:Desirable Triglyceri de: less than 150 mg/dLBorderline High Triglyceride 150-199 mg/dLHigh Triglyceride: 200-499 mg/dLVery High Triglyceride: greater than or equal to 5OO mg/dL Cholesterol 259 mg/dL [facility] Comment:Desirable Cholestero l: less than 200 mg/dLBorderline High Cholesterol: 200-239 mg/dLHigh Cholesterol: greater than 239 mg/dL LDL Cholesterol Calculated 190 mg/dl [facility] Comment:Desirable LDL: less than 100 mg/dLNear Optimal/Above Optimal LDL: 110- 129 mg/dLBorderline High LDL: 130-159 mg/dLHigh LDL: 160-189 mg/dLVery High LDL: greater than or equal to 190 mg/dL HDL Cholesterol 35 mg/dL [facility] Comment:Desirable HDL: great er than 40 mg/dL Note: This HDL assay may give artificially low results in patients with liver disease. 04/28/2022 11:0 1 AM EST 04/28/2022 11:01 AM EST [facility] External Provider LAB BLO OD ORDERABLES Final Result [facility] [address] [place] [address] [phone] from Last 3 Months or Most Recently Relevant to Health Maintenance Insurance [facility] Care Teams Animated Cartoons Painter Relationship Specialty Start Date End Date Name, MD Jay [address] [place] [phone] PCP - General Family Medicine 03/02/18
--- OUTSIDE RECORDS SUMMARY | 2024-06-09 11:42 | XMS_ITS | Encounter Summary ---
Author Organization [facility] Address [address] [place] [address] Care Team Providers Care Relief Pharmacist Name Role Phone Name, Jay PHAM Primary Care Provider Unavailabl e Name, Jay PHAM Primary Care Provider Unavailabl e Community, Pcp Primary Care Provider Unavailabl e Name, Jay PHAM Primary Care Provider Unavailabl e Encounter Details Date Type Department Care Team Description 08/10/2014 Telephone Adult [address] [address] Jay Moore MD Social History Tobacco Use [...] on filedocumented in this encounter Care Teams Relief Pharmacist Relationship Specialty Start Date End Date Jay Moore MD PCP - General 05/03/09 04/10/15 Jay Moore MD PCP - General Internal Medicine 04/11/15 04/11/15 [facility], Pcp PCP - General Internal Medicine 04/12/15 02/04/18 Jay Moore MD PCP - General Internal Medicine 02/05/18 documented as of this encounter
--- OUTSIDE RECORDS SUMMARY | 2024-06-09 11:42 | XMS_ITS | Encounter Summary ---
Author Organization [facility] Address [address] [place] [address] Care Team Providers Care Laundry Technician Name Role Phone Name, Jay PHAM Primary Care Provider Unavailabl e Name, Jay PHAM Primary Care Provider Unavailabl e Community, Pcp Primary Care Provider Unavailabl e Name, Jay PHAM Primary Care Provider Unavailabl e Encounter Details Date Type Department Care Team Description 09/26/2014 Slagger Report Medical Records [address] [place] [address] Cezar Burks MD Social History Tobacco Use [...] on filedocumented in this encounter Care Teams Laundry Technician Relationship Specialty Start Date End Date Jay Moore MD PCP - General 05/03/09 04/10/15 Jay Moore MD PCP - General Internal Medicine 04/11/15 04/11/15 [facility], Pcp PCP - General Internal Medicine 04/12/15 02/04/18 Jay Moore MD PCP - General Internal Medicine 02/05/18 documented as of this encounter
--- OUTSIDE RECORDS SUMMARY | 2024-06-09 11:42 | XMS_ITS | Clinical Summary ---
Author Organization [facility] Address [address] [address] Phone Care Team Providers Care Dock Clerk Name Role Phone Name, Jay PHAM [...] 03/21/2024 Refill [facility] [address] [address] Diane Amaral [place] Essential (primary) hypertension from Last 3 Months Immunizations Immunization Administration Dates Next Due H1N1 Inj Preservative [...] Visit [facility] [address] [place] [address] Ander Sen MD [address] [facility] [address] [place] [phone] Health Maintenance Due Date Last Done Comments Breast Cancer Screening 1955 Colorectal Cancer Screening: Annual FOBT 05/23/2003 Colorectal Cancer Screening: Colonoscopy 05/23/2003 Colorectal Cancer Screening: Sigmoidoscopy 05/23/2003 Pneumococcal Vaccine: 50+ Years (2 of 2 - PCV) 03/04/2011 03/04/2010 Influenza Vaccine (Season Ended) 2024 12/12/2016, 01/29/2016, 03/25/2013, Additional history exists Hepatitis B Vaccine Aged Out No longe r eligible based on patient's age to complete this topic Insurance [facility] ([id number]) [facility] ([id number]) Care Teams Dock Clerk Relationship Specialty Start Date End Date Name, MD Jay [address] [place] [address] PCP - General Internal Medicine 12/07/20
--- OUTSIDE RECORDS SUMMARY | 2024-06-09 11:43 | XMS_ITS | Encounter Summary ---
Author Organization [facility] Address [address] [place] [address] Care Team Providers Care Business Editor Name Role Phone Name, Jay PHAM Primary Care Provider Unavailabl e Name, Jay PHAM Primary Care Provider Unavailabl e Community, Pcp Primary Care Provider Unavailabl e Name, Jay PHAM Primary Care Provider Unavailabl e Reason for Visit * Reason Comments E-prescribe Rx Request Encounter Details Date Type Department Care Team Description 04/04/2011 Refill Adult [address] [address] NameJay MD E-prescribe Rx Request Social History [...] on filedocumented in this encounter Care Teams Business Editor Relationship Specialty Start Date End Date Jay Moore MD PCP - General 05/03/09 04/10/15 Jay Moore MD PCP - General Internal Medicine 04/11/15 04/11/15 Community, Pcp PCP - General Internal Medicine 04/12/15 02/04/18 Jay Moore MD PCP - General Internal Medicine 02/05/18 documented as of this encounter
--- OUTSIDE RECORDS SUMMARY | 2024-06-09 11:43 | XMS_ITS | Encounter Summary ---
Author Organization [facility] Address [address] [place] [address] Care Team Providers Care Sign Language Teacher Name Role Phone Name, Jay PHAM Primary Care Provider Unavailabl e Name, Jay PHAM Primary Care Provider Unavailabl e Community, Pcp Primary Care Provider Unavailabl e Name, Jay PHAM Primary Care Provider Unavailabl e Encounter Details Date Type Department Care Team Description 01/18/2011 Hospital Medical Records [address] [place] [address] Natacha Blank Social History Tobacco Use Types [...] on filedocumented in this encounter Care Teams Sign Language Teacher Relationship Specialty Start Date End Date Jay Moore MD PCP - General 05/03/09 04/10/15 Jay Moore MD PCP - General Internal Medicine 04/11/15 04/11/15 [facility], Pcp PCP - General Internal Medicine 04/12/15 02/04/18 Jay Moore MD PCP - General Internal Medicine 02/05/18 documented as of this encounter
--- OUTSIDE RECORDS SUMMARY | 2024-06-09 11:43 | XMS_ITS | Encounter Summary ---
Author Organization [facility] Address [address] [place] [address] Care Team Providers Care Bisque Kiln Placer Name Role Phone Community, Pcp Primary Care Provider Unavailabl e Jay Moore MD Primary Care Provider Unavailabl e Reason for Visit * Reason Comments E-prescribe Rx Request Encounter Details Date Type Department Care Team Description 04/12/2015 Refill Adult Medicine [address] [address] Name, MD Jay E-prescribe Rx Request Social [...] refills need to come from PCP at [facility] * Telephone Encounter - Rocio Thomas [...] Plan: MEDICAID PCC / Product Type: MEDICAID [id number] documented in this encounter Plan of Treatment Not on file documented as of this encounter Visit Diagnoses Not on filedocumented in this encounter Care Teams Bisque Kiln Placer Relationship Specialty Start Date End Date Community, Pcp PCP - General Internal Medicine 04/12/15 02/04/18 NameJay MD PCP - General Internal Medicine 02/05/18 documented as of this encounter
--- OUTSIDE RECORDS SUMMARY | 2024-06-09 11:43 | XMS_ITS | Encounter Summary ---
Author Organization [facility] Address [address] [place] [address] Care Team Providers Care Retail Sales Clerk Name Role Phone Name, Jay PHAM Primary Care Provider Unavailabl e Name, Jay PHAM Primary Care Provider Unavailabl e Community, Pcp Primary Care Provider Unavailabl e Name, Jay PHAM Primary Care Provider Unavailabl e Encounter Details Date Type Department Care Team Description 02/25/2012 Hospital Medical Records [address] [place] [address] Ney Bustamante Social History Tobacco Use Types [...] filedocumented in this encounter Care Teams Retail Sales Clerk Relationship Specialty Start Date End Date Jay Moore MD PCP - General 05/03/09 04/10/15 Jay Moore MD PCP - General Internal Medicine 04/11/15 04/11/15 [facility], Pcp PCP - General Internal Medicine 04/12/15 02/04/18 Jay Moore MD PCP - General Internal Medicine 02/05/18 documented as of this encounter
--- OUTSIDE RECORDS SUMMARY | 2024-06-09 11:43 | XMS_ITS | Encounter Summary ---
Author Organization [facility] Address [address] [place] [address] Care Team Providers Care Studio Designer Name Role Phone Name, Jay PHAM Primary Care Provider Unavailabl e Name, Jay PHAM Primary Care Provider Unavailabl e Community, Pcp Primary Care Provider Unavailabl e Name, Jay PHAM Primary Care Provider Unavailabl e Encounter Details Date Type Department Care Team Description 02/26/2012 Hospital Medical Records [address] [place] [address] Jl Singh Social History Tobacco Use Types Packs/Day Years [...] on filedocumented in this encounter Care Teams Studio Designer Relationship Specialty Start Date End Date Jay Moore MD PCP - General 05/03/09 04/10/15 Jay Moore MD PCP - General Internal Medicine 04/11/15 04/11/15 [facility], Pcp PCP - General Internal Medicine 04/12/15 02/04/18 Jay Moore MD PCP - General Internal Medicine 02/05/18 documented as of this encounter
--- OUTSIDE RECORDS SUMMARY | 2024-06-09 11:43 | XMS_ITS | Encounter Summary ---
Author Organization [facility] Address [address] [place] [address] Care Team Providers Care Forming Yardage Control Operator Name Role Phone Name, Jay PHAM Primary Care Provider Unavailabl e Reason for Visit * Reason Onset Date Comments Note, Other 07/01/2018 Encounter Details Date Type Department Care Team Description 07/01/2018 Telephone Pulmonology - [address] [place] [address] Anson Valle MD Note, Other Social History Tobacco Use Types Packs/Day Years Used Date Smoking Tobacco: Former Cigarettes 0.3 Smokeless Tobacco: Never Comments:20 yrs Alcohol Use Standard Drinks/Week Comments No 0 (1 standard drink = 0.6 oz pur e alcohol) Sex Assigned at Date Recorded Not on file documented as of this encounter Miscellaneous Notes * Telephone Encounter - Sharifa Flores M.A. - 07/01/2018 4:55 PM EDT OV Note and PFT faxed. * Telephone Encounter - Dana Valle - 07/01/2018 3:32 PM EDT [facility] calling they need the last notes and the PFT of the Patient to be fax to them documented in this encounter Plan of Treatment Not on file documented as of this encounter Visit Diagnoses Not on filedocumented in this encounter Care Teams Forming Yardage Control Operator Relationship Specialty Start Date End Date Name, MD Jay PCP - General Internal Medicine 02/05/18 documented as of this encounter
--- OUTSIDE RECORDS SUMMARY | 2024-06-09 11:43 | XMS_ITS | Encounter Summary ---
Author Organization [employer] Address [address] [place] [address] Care Team Providers Care Communications Program Manager Name Role Phone Name, Jay PHAM Primary Care Provider [phone] Reason for Visit * Reason Onset Date Comments Hospital Follow-up 12/15/2023 Encounter Details Date Type Department Care Team ([facility] st Contact Info) Description 12/15/2023 Telephone [facility] [address] [place], [place] [phone] Name, MD Jay [address] [place] [address] Hospital Follow-up Social History Tobacco Use Types [...] from pt requesting a HDF appt. Hospital: [facility] Date of admission: 12/10/23 Discharge date: 12/14/23 Diagnosed: Asthma Attack (Frisian Speaker) documented in this encounter Plan of Treatment Upcoming Encounters Date Type Department Care Team (Late st Contact Info) Description 07/12/2024 1:00 PM EDT Office Visit [facility] [address] [place] [address] Name, MD Jay [address] [place] [address] documented as of this encounter Visit Diagnoses Not on filedocumented in this encounter Additional Health Concerns Assessment Noted Time PHQ-9 Depression Total Score: 11 024 9:40 AM EDT documented as of this encounter Care Teams Communications Program Manager Relationship Specialty Start Date End Date Name, MD Jay [address] [place] [address] PCP - General Family Medicine 03/02/18 documented as of this encounter
--- OUTSIDE RECORDS SUMMARY | 2024-06-09 11:43 | XMS_ITS | Encounter Summary ---
Author Organization [facility] Address [address] [place] [address] Care Team Providers Care Maintenance Shop Laborer Name Role Phone Name, Jay PHAM Primary Care Provider Unavailabl e Name, Jay PHAM Primary Care Provider Unavailabl e Community, Pcp Primary Care Provider Unavailabl e Name, Jay PHAM Primary Care Provider Unavailabl e Encounter Details Date Type Department Care Team Description 03/14/2015 Release of Information Medical Records [address] [place] [address] Abstract, Provider Social History Tobacco Use Types [...] on filedocumented in this encounter Care Teams Maintenance Shop Laborer Relationship Specialty Start Date End Date Jay Moore MD PCP - General 05/03/09 04/10/15 Jay Moore MD PCP - General Internal Medicine 04/11/15 04/11/15 [facility], Pcp PCP - General Internal Medicine 04/12/15 02/04/18 Jay Moore MD PCP - General Internal Medicine 02/05/18 documented as of this encounter
--- OUTSIDE RECORDS SUMMARY | 2024-06-09 11:43 | XMS_ITS | Clinical Summary ---
Author Organization [facility] Address [address] [place] [address] Care Team Providers Care Scientific Glass Blower Name Role Phone Name, Jay PHAM Primary Care Provider Unavailabl e Allergies Active Allergy Reactions Severity Noted Date Comments Ciprofloxacin Rash/Dermatitis 05/14/2009 Loracarbef 06/24/2010 Penicillins Rash/Dermatitis 09/29/2013 Previously recorded as penicillamine Oxycodone-Acetaminophen Rash/Dermatitis, Itc pj/Pruritus 05/14/2009 Simvastatin Rash/Dermatitis 05/14/2009 Vancomycin Rash/Dermatitis,Swe lling/Edema 05/14/2009 Medications Medication Sig Dispensed Refills Start Date End Date Status Tabor 3 1000 MG CAPSIndications:Hy pertriglyceridemia Take 1 Cap by mouth 4 Times daily with meals and nightly. 120 Cap 3 08/18/2011 Active albuterol (PROVENTIL) (2.5 MG/3ML) 0.083% nebulizer solution Take 1 Vial by nebulization every 4 hours as needed for Wheezing. 50 Vial 5 08/03/2013 Active naproxen (NAPROSYN) 500 MG tabletIndications: Allergic rhinitis, unspecified allergic rhinitis type,Panic attacks,Acute sinusitis, recurrence not specified, unspecified location,Asthma, mild intermittent, uncomplicated,Urin tonny frequency Take 1 Tab by mouth 2 times daily (with meals). 60 Tab 5 08/08/2014 Active fluticasone 50 MCG/ACT nasal spray 2 sprays each nostril twice daily x 1 week then once daily as needed. 16 g 0 08/09/2014 Active loratadine (CLARITIN) 10 MG tablet Take 1 Tab by mouth daily. 30 Tab 4 09/05/2014 Active omeprazole (PRILOSEC) 20 MG capsule TAKE ONE CAPSULE BY MOUTH DAILY 28 Cap 4 02/05/2015 Active predniSONE (DELTASONE) 20 MG tablet Take 3 Tabs by mouth daily. 0 02/08/2015 Active ALBUTEROL SULFATE (PROAIR HFA) 108 (90 BASE) MCG/ACT Aero SolnIndications:Al lergic rhinitis, unspecified allergic rhinitis type,Asthma, mild intermittent, uncomplicated Inhale 2 Puffs into the lungs every 4 hours as needed for Cough or Wheezing. 8.5 Inhaler 11 02/08/2015 Active fluoxetine (PROZAC) 20 MG capsule TAKE ONE CAPSULE BY MOUTH DAILY 30 Cap 1 04/13/2015 Active sertraline (ZOLOFT) 25 MG tablet Take 1 Tab by mouth daily. 0 Active lorazepam (ATIVAN) 0.5 MG tablet Take 1 Tab by mouth every 6 hours as needed. 0 Active Meclizine HCl 25 MG Tab Take 1 Tab by mouth 3 times daily. 0 Active Fexofenadine-Pseud oephedrine (ANNETTA-D OR) Take 1 Tab by mouth daily. 0 Active Mometasone Furo-Formoterol Fum 200-5 MCG/ACT Aerosol Inhale 2 Puffs into the lungs 3 times daily. 0 Active hydrochlorothiazid e (MICROZIDE) 12.5 MG capsule Take 1 Cap by mouth daily. 0 03/11/2018 Active budesonide (PULMICORT) 0.5 MG/2ML nebulizer solution Take 2 mL by nebulization 2 times daily for 30 days. 60 Ampule 11 05/04/2018 Active levalbuterol (XOPENEX HFA) 45 MCG/ACT inhaler Inhale 1-2 Puffs into the lungs every 6 hours as needed for Wheezing (Dysonea/Wheezing ) for up to 30 days. This is a Rescue Medication: 2 puffs inhaled oral Q 4-6 hrs as needed; not exceed 12 inhalations/24 hrs. 1 Inhaler 5 05/04/2018 Active amitriptyline (ELAVIL) 50 MG tablet Take 1 Tab by mouth at bedtime. 0 Active azelastine (OPTIVAR) 0.05 % ophthalmic solution apply 1 Drop to the eye 2 times daily. 0 Active EPINEPHrine 0.3 MG/0.3ML Solution Auto-injector Inject 0.3 mL as directed as needed for Anaphylaxis. 0 Active sumatriptan (IMITREX) 50 MG tablet Take 1 Tab by mouth daily as needed for Migraine. May repeat dose once after 2 hours, if needed. Not ot exceed 200 mg in 24 hours 0 Active Mix equal parts:MAALOX SUSP/LIDOCAINE VISCOUS 2 % MT SOLN/BENADRYL 12.5MG/5ML Swish and spit 10 mL every 4 hours as needed for Pain for up to 14 days. Please mix the following in equal parts: MAALOX REGULAR STRENGTH 225-200-25 MG/5ML OR SUSP- 30cc LIDOCAINE VISCOUS 2 % MT SOLN - 30cc BENADRYL 12.5 MG/5ML OR ELIX - 30cc 90 mL 0 06/25/2018 Active azelastine (ASTELIN) 0.1 % nasal sprayIndications:A llergic rhinitis, unspecified seasonality, unspecified trigger,Gastroesop hageal reflux disease without esophagitis,Severe persistent asthma without complication 2 Sprays by Each Nare route 2 times daily for 30 days. Use in each nostril as directed 120 [place] 11 09/24/2018 Active ipratropium (ATROVENT) 0.06 % nasal sprayIndications:A llergic rhinitis, unspecified seasonality, unspecified trigger,Gastroesop hageal reflux disease without esophagitis,Severe persistent asthma without complication 2 Sprays by Nasal route 4 times daily for 30 days. 30 mL 3 09/24/2018 Active omeprazole (PRILOSEC OTC) 20 MG tabletIndications: Allergic rhinitis, unspecified allergic rhinitis type,Panic attacks,Acute sinusitis, recurrence not specified, unspecified location,Asthma, mild intermittent, uncomplicated,Urin tonny frequency Take 1 Tab by mouth daily. 28 Tab 4 08/08/2014 02/04/20 15 Discontinu ed(reorder ) Active Problems Problem Noted Date Chronic pain of left knee 05/24/2018 Recurrent sinusitis 05/24/2018 Cervicalgia 08/04/2012 Allergic rhinitis 10/09/2010 GERD (gastroesophageal reflux disease) 0 05/20/2010 Eczema 05/20/2010 Hyperlipidemia 10/24/2009 Anxiety 08/21/2009 Fibromyalgia 06/06/2009 Migraines 06/06/2009 Overview: Without aura Asthma 05/14/2009 Major depression Resolved Problems Problem Noted Date Resolved Date Muscle tear 08/04/2012 05/24/2018 Overview: On the left arm Subclinical hypothyroidism 08/18/201105/24 Knee pain, left 11/06/2010 05/24/2018 Family history of early CAD 10/24/2009 08/06/2009 Family history of high cholesterol 10/24/2009 10/24/2009 Seasonal allergies 06/06/2009 10/09/2010 High cholesterol 05/14/2009 10/24/2009 Neck pain 05/14/2009 05/24/2018 Low back pain 05/14/2009 05/24/2018 Shoulder pain 05/14/2009 05/24/2018 Overview: Left rotator cuff tear. Also has the problem on the right side Hypothyroidism 05/14/2009 08/18/2011 Cubital tunnel syndrome 05/14/2009 05/25/19 19 Overview: Right arm Patient has surgery on the right arm for this Depression 05/14/2009 05/24/2018 Immunizations Name Administration Dates Next Due Influenza (> 6 Months) 03/25/2013,11/06/2010,04/2010 Influenza H1N1 Pandemic Flu Vaccine 05/14/2009 PPD-RBMG 06/24/2010 Pneumoccoccal(Adult) Polysaccharide PPSV23 03/04 TD (STATE SUPPLIED FOR ADULTS AND CHILDREN) 03/2005 Family History Medical History Relation Name Comments SC Father in his 50s Relation Name Status Comments Daughter Alive high cholestero l Father high cholestero l and [place] Mother Alive CVA Sister Alive high cholestero l Social History Tobacco Use Types Packs/Day Years Used Date Smoking Tobacco: Former Cigarettes 0.3 Smokeless Tobacco: Never Comments:20 yrs Alcohol Use Standard Drinks/Week Comments No 0 (1 standard drink = 0.6 oz pur e alcohol) Sex Assigned at Date Recorded Not on file Last Filed Vital Signs Vital Sign Reading Time Taken Comments Blood Pressure 122/74 09/24/2018 1:04 PM EDT Pulse 80 09/24/2018 1:04 PM EDT Temperature 36.9 ??C (98.4 ??F) 11/20/2014 9:52 AM ED T Respiratory Rate 18 09/24/2018 1:04 PM EDT Oxygen Saturation 97% 09/24/2018 1:04 PM EDT Inhaled Oxygen Concentration - - Weight 64 kg (141 lb) 09/24/2018 1:04 PM EDT Height 160 cm (5' 3 ) 09/24/2018 1:04 PM EDT Body Mass Index 24.98 09/24/2018 1:04 PM EDT Plan of Treatment Health Maintenance Due Date Last Done Comments Covid-19 Vaccine (#1) 1955 HEPATITIS C SCREENING 1972 COLON CANCER SCREENING 2004 SHINGLES VACCINE (1 of 2) 2004 DTAP/TDAP/TD (1 - Tdap) 05/01/2005 04/30/2005 MAMMOGRAM 01/04/2014 01/04/2013, 03/2008, 03/27/2006, Additional history exists CHOLESTEROL SCREENING 08/04/2018 08/04/2013 , 01/15/2012, 08/15/2011, Additional history exists BONE DENSITY SCREENING 05/23/2019 PNEUMOCOCCAL VACCINE (2 - PCV) 05/23/2019 03/04/2010 INFLUENZA (Season Ended) 2024 03/25/2013, 08/2010, 03/04/2010 Care Teams Scientific Glass Blower Relationship Specialty Start Date End Date Name, MD Jay PCP - General Internal Medicine 02/05/18
--- OUTSIDE RECORDS SUMMARY | 2024-06-09 11:43 | XMS_ITS | Encounter Summary ---
Author Organization [email or web address] Address [address] [facility] 7t [place] [address] Care Team Providers Care Jawbone Breaker Name Role Phone Name, Jay PHAM Primary Care Provider [phone] Reason for Visit * Reason Comments Med Refill Encounter Details Date Type Department Care Team ([facility] Contact Info) Description 05/07/2022 Refill [facility] [address] [place] [address] [phone] Name, MD Jay [address] [place] [phone] Social History Tobacco Use Types Packs/Day Years [...] Upcoming Encounters Date Type Department Care Team ([facility] Contact Info) Description 07/12/2024 1:00 PM EDT Office Visit [facility] [address] [place] [address] [phone] Name, MD Jay [address] [place] [address] [phone] documented as of this encounter Visit Diagnoses Not on filedocumented in this encounter Care Teams Jawbone Breaker Relationship Specialty Start Date End Date Name, MD Jay [address] [place] [address] PCP - General Family Medicine 03/02/18 documented as of this encounter
--- OUTSIDE RECORDS SUMMARY | 2024-06-09 11:43 | XMS_ITS | Encounter Summary ---
Author Organization [facility] Address [address] [place] [address] Care Team Providers Care Sider Mechanic Name Role Phone Community, Pcp Primary Care Provider Unavailtomas e Jay Moore MD Primary Care Provider Unavailabl e Encounter Details Date Type Department Care Team Description 07/22/2015 Hospital Medical Records [address] [place], [place] [phone] [place] [address] Social History Tobacco Use Types Packs/Day Years [...] on filedocumented in this encounter Care Teams Sider Mechanic Relationship Specialty Start Date End Date Community, Pcp PCP - General Internal Medicine 04/12/15 02/04/18 Jay Moore MD PCP - General Internal Medicine 02/05/18 documented as of this encounter
== END 2024-06-09 10:39 | disposition home or self-care (01) ==
LOC: HO.PMC 10:04
PROVIDERS: PCP Internal Medicine Geriatric Medicine; Visit Provider Nurse Practitioner Family
DX: M79.7 Fibromyalgia (principal); M47.812 Spondylosis without myelopathy or radiculopathy, cervical region; M62.838 Other muscle spasm; M25.511 Pain in right shoulder; G89.4 Chronic pain syndrome; M54.12 Radiculopathy, cervical region; M43.12 Spondylolisthesis, cervical region
CPT/HCPCS: 99214; G2211

== ENCOUNTER 2024-06-09 10:04 | Outpatient (REF) | payer OTHER, SELFPAY ==
--- NOTE | ~2024-06-09 | XR_ITS ---
CLINICAL HISTORY: M25.511 - Pain in right shoulder 3 view right shoulder Comparison: None Findings: Bones intact. No dislocations. There are mild degenerative changes of the glenohumeral joint. No erosions. No radiopaque foreign body. There are postoperative changes with several surgical anchors noted. There is osteophytic squaring of the greater tuberosity compatible with chronic rotator cuff disease. There is narrowing of the acromial humeral interval consistent with impingement. IMPRESSION: 1. Osteophytic squaring of the greater tuberosity suggesting chronic rotator cuff disease. 2. Narrowing of the acromial humeral interval suggesting evidence of impingement. 3. Postoperative changes. 4. Mild glenohumeral degenerative changes. This document has been electronically signed by: Christiano Hutchins MD on 06/10/2024 09:01:19
--- OUTSIDE RECORDS SUMMARY | 2024-06-09 12:52 | XMS_ITS | Encounter Summary ---
Author Organization [facility] Address [address] [facility] [address] [place] [address] Phone Care Team Providers Care Cutter First Name Role Phone Name, Jay PHAM Primary Care Provider Unavailabl e Reason for Visit * Reason Comments Med Refill Encounter Details Date Type Department Care Team (Late Contact Info) Description 09/25/2022 Refill [facility] [address] [facility] [address] [facility] [address] [place] [address] Amandeep Stuart MD Social History [...] Visit [facility] [address] [place] [phone] Ander Sen MD [address] [facility] [address] [place] [phone] documented as of this encounter Visit Diagnoses Not on filedocumented in this encounter Care Teams Cutter First Relationship Specialty Start Date End Date Name, MD Jay [address] [place] [address] PCP - General Internal Medicine 12/07/20 documented as of this encounter
--- OUTSIDE RECORDS SUMMARY | 2024-06-09 12:52 | XMS_ITS | Clinical Summary ---
Author Organization [facility] Address [address] [address] Phone Care Team Providers Care Touch Up Edger Name Role Phone Name, Jay PHAM Primary [...] 03/21/2024 Refill [facility] [address] [phone] Diane Amaral [place] Essential (primary) hypertension from [...] Visit [facility] [address] [place] [address] Ander Sen MD [address] [facility] [address] [place] [phone] Health Maintenance Due Date Last Done Comments [...] patient's age to complete this topic Insurance [facility] ([id number]) [facility] ([id number]) Care Teams Touch Up Edger Relationship Specialty Start Date End Date Name, MD Jay [address] [place] [address] PCP - General Internal Medicine 12/07/20
--- OUTSIDE RECORDS SUMMARY | 2024-06-09 12:53 | XMS_ITS | Clinical Summary ---
Author Organization [employer] Address [address] [facility] 7t [place] [address] Care Team Providers Care Crown Blocker Name Role Phone Name, Jay PHAM Primary Care Provider [phone] Allergies Active Allergy Reactions Criticality Noted Date [...] Type Department Care Team Description 06/01/2024 Refill [facility] [address] [place] [address] Jay Moore MD 05/05/2024 Refill [facility] MEDICINE [address] [place] [address] Jay Moore MD 05/04/2024 Refill [facility] MED[facility]INE [address] [place] [phone] Jay Moore MD Migraine without status migrainosus, not intractable, unspecified migraine type 04/21/2024 Telephone [facility] MED[facility]INE [address] [place] [phone] Keyana Ledbetter [place] may recalls 03/27/2024 Refill [facility]INE [address] [place] [phone] Jay Moore MD Hypertension, essential 03/24/2024 Telephone [facility] MED[facility]INE [address] [place] [phone] Jay Moore MD Durable Medical Equipment 03/22/2024 11:30 AM EST Office Visit [facility] MED[facility]INE [address] [place] [phone] Jay Moore MD Severe persistent asthma, unspecified whether complicated (Primary Dx); Hypertension, unspecified type; Eczema, unspecified type; Osteopenia, unspecified location 03/14/2024 Telephone [facility] MED[facility]INE [address] [place] [phone] Keyana Ledbetter MA chart prep 03/12/2024 Refill [facility] [address] [place] [address] Jay Moore MD from Last 3 Months Immunizations Name Administration Dates Next Due Influenza injectable quadriv alent IIV4 with preservative 12/12/2016,01/29/2016 Influenza, IIV3, injectable 03/25/2013, 1,03/04/2010 Novel [id number], preservative-free 05/14 PPD Test 06/24/2010 Pneumococcal Polysaccharide [...] Description 07/12/2024 1:00 PM EDT Office Visit [facility] [address] [place] [address] Name, MD Jay [address] [place] [address] Health Maintenance Due Date Last Done Comments [...] EST) Sodium 143 135 - 145 mmol/L [facility] Potassium 3.8 3.3 - 5.1 mmol/L [facility] Chloride 109(H) 96 - 108 mmol/L [facility] Carbon Dioxide 26 22 - 29 mmol/L [facility] Anion Gap 12 12 - 20 [facility] Urea Nitrogen (BUN) 15 9 - 16 mg/dL [facility] Creatinine, Serum 0.54 0.5 - 1.4 mg/dL [facility] Estimated Glomerular Filt Rate >60 [facility] Comment:Chronic Kidney Disea se: Estimated GFR < 60 mL/min/1.57g7Bcsres Kidney Disease: Estimated GFR < 15 mL/min/1.73m2 Glucose 86 60 - 115 mg/dL [facility] Calcium 9.4 8.4 - 10.2 mg/dL [facility] Blood Venous blood specimen / Unknown 03/22/2024 11:54 AM EST 03/22/2024 1:38 PM EST us Jay Name MD LAB BLOOD ORDERABLES Final Resul t [facility] [address] [place] [address] [phone] * BI Mammogram Screening Tomosynthesis Bilateral (06/11/2023 12:12 PM EDT) Anatomical Region Laterality Modality Breast Bilateral Mammography 06/11/2023 12:1 2 PM EDT Narrative 07/09/2023 4:17 AM EDT ? [facility] ? [address] ?[place] [address] ? Mammography Report ? Signed ? Patient: EzraBlayneKaitlin ?MR#: [id number] ?? 3 ? : 1955 ?Acct:[id number] ? Age/Sex: 68 / F ?ADM Date: 04/11/24 ? Loc: HO.MAMMO ? Attending Dr: Jay Name MD ? Ordering Physician: Name,Jay MD ?Results: 2Benign Fi ?? ndings ? Date of Service: 04/11/24 ?Follow Up: 1 Year From Orig ?? inal Mammogram ? Procedure(s): MM tomosynthesis screening BI ?? Accession Number(s): [id number] ? cc: Name,Jay PHAM ? EXAMINATION: ?? [...] 07/09/23411 ? DD/ 11 ? TD/TT: ? Copy Chief: ? Procedure Note Matias, José Miguel - 07/09/2023 J Carlos [facility] [address] [place] [address] Mammography Report Signed Patient: Anish Munguia#: [id number] 3 : 5Acct:[id number] Age/Sex: 68 / FADM Date: 06/11/23 Loc: HO.MAMMO Attending Dr: Jay Moore MD Ordering Physician: Jay Moore MDResults: 2Benign Fi ndings Date of Service: 06/11/23Follow Up: 1 Year From Orig inal Mammogram Procedure(s): MM tomosynthesis screening BI Accession Number(s): [id number] cc: Name,Jay PHAM EXAMINATION: MM SCREENING DIGITAL [...] in OV> 07/09/23 0412 DD/ 1212 TD/TT: Copy Chief: Jay Moore MD [facility] BI PROCEDURES Edited Result - Final * Lipid Panel, Standard (04/28/2022 11:01 AM EST) Triglycerides 171 mg/dL [facility] Comment:Desirable Triglyceri de: less than 150 mg/dLBorderline High Triglyceride 150-199 mg/dLHigh Triglyceride: 200-499 mg/dLVery High Triglyceride: greater than or equal to 5OO mg/dL Cholesterol 259 mg/dL [facility] Comment:Desirable Cholestero l: less than 200 mg/dLBorderline High Cholesterol: 200-239 mg/dLHigh Cholesterol: greater than 239 mg/dL LDL Cholesterol Calculated 190 mg/dl [facility] Comment:Desirable LDL: less than 100 mg/dLNear Optimal/Above Optimal LDL: 110- 129 mg/dLBorderline High LDL: 130-159 mg/dLHigh LDL: 160-189 mg/dLVery High LDL: greater than or equal to 190 mg/dL HDL Cholesterol 35 mg/dL [facility] Comment:Desirable HDL: great er than 40 mg/dL Note: This HDL assay may give artificially low results in patients with liver disease. 04/28/2022 11:0 1 AM EST 04/28/2022 11:01 AM EST [facility] External Provider LAB BLO OD ORDERABLES Final Result [facility] [address] [place] [address] [phone] from Last 3 Months or Most Recently Relevant to Health Maintenance Insurance [facility] Care Teams Crown Blocker Relationship Specialty Start Date End Date Name, MD Jay [address] [place] [phone] PCP - General Family Medicine 03/02/18
--- OUTSIDE RECORDS SUMMARY | 2024-06-09 12:53 | XMS_ITS | Encounter Summary ---
Author Organization [employer] Address [address] [facility] [address] 7t [place] [address] Care Team Providers Care Cloth Napping Supervisor Name Role Phone Name, Jay PHAM Primary Care Provider Reason for Visit * Reason Onset Date Comments Hospital Follow-up 12/15/2023 Encounter Details Date Type Department Care Team ([facility] st Contact Info) Description 12/15/2023 Telephone [facility] [address] [place], [place] [phone] Name, MD Jay [address] [place] [address] Hospital Follow-up Social History Tobacco Use Types [...] from pt requesting a HDF appt. Hospital: [facility] Date of admission: 12/10/23 Discharge date: 12/14/23 Diagnosed: Asthma Attack (Bengali Speaker) documented in this encounter Plan of Treatment Upcoming Encounters Date Type Department Care Team (Late st Contact Info) Description 07/12/2024 1:00 PM EDT Office Visit [facility] [address] [place] [phone] Name, MD Jay [address] [place] [phone] documented as of this encounter Visit Diagnoses Not on filedocumented in this encounter Additional Health Concerns Assessment Noted Time PHQ-9 Depression Total Score: 11 024 9:40 AM EDT documented as of this encounter Care Teams Cloth Napping Supervisor Relationship Specialty Start Date End Date Name, MD Jay [address] [place] [phone] PCP - General Family Medicine 03/02/18 documented as of this encounter
--- OUTSIDE RECORDS SUMMARY | 2024-06-09 12:53 | XMS_ITS | Encounter Summary ---
Author Organization [employer] Address [address] [facility] 7t [place] [address] Care Team Providers Care Ice Cream Machine Operator Name Role Phone Name, Jay PHAM Primary Care Provider [phone] Reason for Visit * Reason Comments Med Refill Encounter Details Date Type Department Care Team ([facility] Contact Info) Description 05/07/2022 Refill [facility] [address] [place] [address] [phone] Name, MD Jay [address] [place] [phone] Social History Tobacco Use Types Packs/Day Years [...] Upcoming Encounters Date Type Department Care Team ([facility] Contact Info) Description 07/12/2024 1:00 PM EDT Office Visit [facility] [address] [place] [address] [phone] Name, MD Jay [address] [place] [address] [phone] documented as of this encounter Visit Diagnoses Not on filedocumented in this encounter Care Teams Ice Cream Machine Operator Relationship Specialty Start Date End Date Name, MD Jay [address] [place] [address] PCP - General Family Medicine 03/02/18 documented as of this encounter
== END 2024-06-09 10:05 | disposition home or self-care (01) ==
LOC: HO.XRAY 10:04
PROVIDERS: PCP Internal Medicine Geriatric Medicine; Visit Provider Nurse Practitioner Family
DX: M25.511 Pain in right shoulder (principal); M79.7 Fibromyalgia; M47.812 Spondylosis without myelopathy or radiculopathy, cervical region; M62.838 Other muscle spasm; G89.4 Chronic pain syndrome; M54.12 Radiculopathy, cervical region; M43.12 Spondylolisthesis, cervical region
CPT/HCPCS: 73030; 99212

== ENCOUNTER → 2024-06-09 10:51 | Outpatient (BNV) | payer OTHER, SELFPAY | PROVIDERS: PCP Internal Medicine Geriatric Medicine; Visit Provider Radiology Diagnostic Radiology | DX: M25.711 Osteophyte, right shoulder (principal); M19.011 Primary osteoarthritis, right shoulder | CPT/HCPCS: 73030 ==

== ENCOUNTER 2024-07-14 23:12 | Emergency (ER) | payer OTHER, SELFPAY ==
--- NOTE | 2024-07-14 | ECG_ITS ---
Test Reason : sob Blood Pressure : */* mmHG Vent. Rate : 77 BPM Atrial Rate : 77 BPM P-R Int : 148 ms QRS Dur : 86 ms QT Int : 382 ms P-R-T Axes : 38 10 8 degrees QTcB Int : 432 ms Normal sinus rhythm Possible Inferior infarct , age undetermined T wave abnormality, consider anterior ischemia Abnormal ECG When compared with ECG of 09-Dec-2023 11:39, No significant change was found Referred By: Generic ED Physician Electronically Signed By: SANDRINE DESIR MD
--- NOTE | ~2024-07-14 | XR_ITS ---
CLINICAL HISTORY: sob 2 views chest Comparison: CR/SR - XR CHEST 2V - 12/10/23 11:31 EDT Findings: Cardiac and mediastinal contours are stable. Mild chronic interstitial prominence with scattered peribronchial thickening. No focal consolidation. No effusion. No pneumothorax. No acute osseous finding. Impression: Mild chronic interstitial prominence with scattered peribronchial thickening. No focal consolidation. This document has been electronically signed by: Julio Benz MD on 07/14/2024 23:50:32
[2024-07-14 23:19] VITALS: BP 152/77; PULSE 85; RESP 20; TEMP 36.6; O2SAT 99; BMI 22.8
[2024-07-14 23:42] LABS: MANUAL DIFF FLAG NO
[2024-07-14 23:43] LABS: Basophils Percent Auto 0.3 % (0-2); Eosinophils Percent Auto 0.1 % (0-4); Hematocrit 38.1 % (37.0-47.0); Hemoglobin 12.4 g/dl (12.0-16.0); Imm Gran Pct Auto 0.9 % (0.0-0.4); Lymphocytes Absolute Auto 2.4 X10*3/uL (1.2-4.9); Lymphocytes Percent Auto 22.2 % (20-40); Mean Corpuscular HGB Conc 32.5 g/dl (31.0-35.0); Mean Corpuscular Hemoglobin 25.8 pg (27.0-33.0); Mean Corpuscular Volume 79.4 fL (80.0-98.0); Mean Platelet Volume 9.4 fL (9.4-12.3); Monocytes Absolute Auto 0.8 X10*3/uL (0.1-1.2); Monocytes Percent Auto 7.3 % (2-11); Neutrophils Absolute Auto 7.4 x10*3/uL (2.0-8.3); Neutrophils Percent Auto 69.2 % (45-73); Platelet Count 272 X10*3/uL (160-400); Red Cell Distribution Width 14.6 % (11.0-16.0); White Blood Count 10.8 X10*3/uL (4.8-10.8)
[2024-07-14 23:53] LABS: Alanine Aminotransferase 14 U/L (0-31); Albumin Level 4.3 g/dL (3.5-5.0); Alkaline Phosphatase 92 U/L (39-117); Anion Gap 14 (12-20); Aspartate Amino Transferase 16 U/L (5-31); Bilirubin Total 0.2 mg/dL (0.0-1.0); Blood Urea Nitrogen 23 mg/dL (9-16); Calcium 9.7 mg/dL (8.4-10.2); Carbon Dioxide 25 mmol/L (22-29); Chloride 108 mmol/L (96-108); Creatinine Clr Calc Pharmacy 69.8; Estimated Glomerular Filt Rate > 60; Glucose Random 93 mg/dL (60-115); Potassium 4.2 mmol/L (3.3-5.1); Sodium 143 mmol/L (135-145); Total Protein 7.4 g/dL (6.5-8.0)
[2024-07-15 00:04] LABS: Troponin-I High Sensitivity < 2.7 ng/L (<3.5-17.0)
[2024-07-15 01:19] VITALS: BP 152/90; PULSE 69; RESP 20; TEMP 36.4; O2SAT 99
--- NOTE | 2024-07-15 01:22 | MHC.EDTECH ---
assumed care of pt
--- NOTE | 2024-07-15 01:56 | ED_ITS ---
HPI - SOB/Dyspnea General Chief Complaint: Dyspnea Stated Complaint: asthma Time Seen by Provider: 07/15/24 01:45 Source: patient Mode of arrival: ambulatory Limitations: no limitations History of Present Illness ED Provider: Elizabeth Vidal PA-C HPI Narrative: 69-year-old female with history of asthma presenting to the emergency department today for evaluation of continued chest tightness. She states she does not feel like it is her heart but her asthma. She has had asthma for as long as she can remember. She started feeling like her asthma is getting worse this past Thursday, 4 days ago. She has a maintenance inhaler that she uses in the morning and the evening. She also has a nebulizer and rescue inhaler which she has been using for the past 2 days 2 to 3 times a day. While at works for short period of time she feels like once it wears off she is back to feeling like her chest is tight and she is wheezing. When she did see her PCP on Thursday 2 days ago they administered a nebulizer in office and then gave her 40 mg of prednisone told her to take it for the next 5 days. Patient has done this and reports still no improvement. She reports only when she goes up a flight of stairs that she feels slightly short of breath but otherwise none with exertion such as walking and does not having orthopnea no peripheral edema. No history of headaches dizziness visual changes or change in urine output denying any body aches joint pain or rashes. Reports chronic neck pain but not here for this and no changes to it. She denies any fevers chills or feeling like she is sick she is not coughing no abdominal pain or nausea or vomiting and no diarrhea. No sick contacts and no travel. She is able tolerate p.o. fluids and void regularly reports having a good appetite. Patient was admitted last fall for her asthma but has never needed to be intubated. She took an nebulizer prior to her arrival here for which she stated helped a little bit. I still feel tight . History was taking with conversing and Maldivian would only 2% of the conversation needing to be interpreted by formal audio train starter who is at bedside during the entire history taking and physical. Patient last saw her head rose grower this past April 3 months ago no changes to her plan they to put her on prednisone. Patient does have seasonal allergies reports taking her allergy medicine as needed but not regularly your daily and not recently. MD elicited complaint: shortness of breath and asthma attack Pertinent past history: asthma Timing: intermittent Relieving factors: nothing Known history of: COPD and asthma Related Data Home Medications ?Medication ?Instructions ?Recorded ?Confirmed hydrochlorothiazide 12.5 mg capsule 1 cap PO DAILY 12/14/19 04/21/24 ketotifen fumarate 0.025 % (0.035 1 drp ophthalmic (eye) BID PRN 12/14/19 04/21/24 %) eye drops Allergy Symptoms lorazepam 1 mg tablet 1 tab PO BID 12/14/19 04/21/24 amitriptyline 50 mg tablet 50 mg PO BEDTIME 03/27/20 04/21/24 valsartan 80 mg tablet 80 mg PO DAILY 05/21/20 04/21/24 fluoxetine 20 mg capsule 20 mg PO DAILY 11/22/20 04/21/24 blood pressure test kit-large #1 ea 12/28/20 04/21/24 azelastine 137 mcg (0.1 %) nasal 2 spray intranasal BID yes 02/10/22 04/21/24 spray omeprazole 20 mg capsule,delayed 20 mg PO DAILY@0630 10/20/22 04/21/24 release nebulizers 07/06/23 04/21/24 losartan 50 mg tablet 50 mg PO DAILY 11/06/23 04/21/24 sumatriptan succinate 25 mg tablet 25 mg PO ONCE PRN Migraine Headache 12/10/23 04/21/24 Previous Rx's ?Medication ?Instructions ?Recorded inhalational spacing device #1 ea 01/29/21 (Aerochamber MV spacer) albuterol sulfate 2.5 mg/3 mL 2.5 mg (3 mL) inhalation Q6H PRN 07/06/23 (0.083 %) solution for nebulization shortness of breath or wheezing 30 days #180 mL sucralfate 100 mg/mL oral 10 ml PO BID #500 mL 01/18/24 suspension (Carafate) montelukast 10 mg tablet 10 mg PO DAILY #90 tabs 01/20/24 ipratropium bromide 42 mcg (0.06 2 spray intranasal TID PRN allergy 02/10/24 %) nasal spray symptoms #15 mL mometasone-formoterol HFA 200 2 puff inhalation BID 30 days #13 02/10/24 mcg-5 mcg/actuation aerosol grams inhaler (Dulera) tiotropium bromide 2.5 2 puff inhalation DAILY 30 days #1 02/10/24 mcg/actuation mist for inhalation ea (Spiriva Respimat) umeclidinium 62.5 mcg/actuation 1 inh inhalation DAILY 30 days #30 02/10/24 blister powder for inhalation ea (Incruse Ellipta) amlodipine 10 mg tablet 10 mg PO DAILY #90 tabs 03/04/24 albuterol sulfate 90 mcg/actuation 2 puff inhalation QID PRN 04/05/24 aerosol inhaler (Ventolin HFA) shortness of breath or wheezing 30 days #18 grams budesonide 160 mcg-glycopyr 9 2 inh inhalation BID #10.7 grams 04/05/24 mcg-formot 4.8 mcg/actuation HFA inhaler (Breztri Aerosphere) tizanidine 2 mg tablet 2 mg PO Q12H PRN muscle spasm #30 06/09/24 tabs Allergies Allergy/AdvReac Type Severity Reaction Status Date / Time ciprofloxacin [From Cipro] Allergy Intermediate HIVES/ITCHI Verified 07/14/24 23:22 NG oxycodone [Percocet] Allergy Intermediate Hives Verified 07/14/24 23:22 Penicillins Allergy Intermediate HIVES/ITCHI Verified 07/14/24 23:22 NG simvastatin [Simvastatin] Allergy Intermediate HIVES/ITCHI Verified 07/14/24 23:22 NIG vancomycin [Vancomycin] Allergy Intermediate HIVES/ITCHI Verified 07/14/24 23:22 NG latex Allergy Mild Rash Verified 07/14/24 23:22 milnacipran [From Savella] Allergy Mild Hives Verified 07/14/24 23:22 Sulfa (Sulfonamide Allergy Mild Shortness Verified 07/14/24 23:22 Antibiotics) of Breath dupilumab [From Dupixent Pen] AdvReac Intermediate neuropathy Verified 07/14/24 23:22 Review of Systems 2 Review of Systems: Yes all other systems are reviewed and are negative PMFSH Past Medical History Attestation statement: The following information was validated with the patient. Source: nursing notes reviewed and other (Validation Software Facilitator) Medical History Asthma-COPD overlap syndrome Asthma exacerbation Abnormal electrocardiogram [ECG] [EKG] Chest pain Bleeding hemorrhoids Eczema VERA positive DVT (deep venous thrombosis) Tachycardia Dyspnea Sinusitis Rash URI (upper respiratory infection) History of anesthesia problem Osteoarthritis Fibromyalgia GERD (gastroesophageal reflux disease) Cervicalgia Depression History of vertigo Varicose vein of leg Chronic pain of left knee Allergic rhinitis Anxiety Asthma Migraine Surgical History History of esophagogastroduodenoscopy (EGD) History of repair of right rotator cuff Hx of bilateral breast reduction surgery Hx of hemorrhoidectomy H/O varicose vein ligation and stripping Hx of colonoscopy Hx of hysterectomy Hx of appendectomy Hx laparoscopic cholecystectomy Status post right rotator cuff repair Family History Family History Father No problems noted. Mother Family history of high blood pressure Dementia Social History Social History Household Members: None Housing: Apartment Do you presently have visiting nurse or other home services: No Alcohol intake: former Comment: pt uses cane as baseline Patient Tobacco Use Status: Never used Tobacco Smoked in Last 30 Days: No Second Hand Smoke Exposure: No Use of substances other than those prescribed or required for medical reasons: No Advance Directives: No Advance Directives Date on File: 04/03/18 Do you have a plan to hurt others: No Plan service: No Current occupational status: unemployed Current occupation: Left Handed Physical Exam 2 Vital Signs: Vital Signs: Last Vital Signs Temp 97.2 F 07/15/24 02:56 Pulse 97 07/15/24 02:56 Resp 17 07/15/24 02:56 BP 160/78 H 07/15/24 02:56 Pulse Ox 96 07/15/24 02:56 O2 Del Method Room Air 07/15/24 02:56 BMI result Body Mass Index 22.8 Const: General: cooperative, healthy appearing, comfortable, no acute distress, well developed, alert and awake Nutritional Appearance: average body habitus and well nourished Orientation/consciousness: patient oriented x3 Limitations: no limitations HEENT: Head: Yes normal to inspection Ears: hearing grossly normal bilaterally General nose exam: Normal external nose present Face and sinus: Yes normal facial exam and Yes sinuses nontender Mouth: Normal oral and palatal mucosa present, lip normal and tongue normal Teeth and gingiva: d entition normal Throat: Yes posterior oropharynx normal Eyes: General: appearance normal, both eyes and all related structures A lignment and Position: alignment normal Periorbital: periorbital findings normal Eyelids: Yes eyelids normal Conjunctivae: conjunctivae normal S clerae: sclerae normal Corneas: corneas normal Neck: Neck: Yes normal visual inspection, Yes full ROM and Yes no lymphadenopathy Chest: Chest palpation & inspection: normal inspection of the chest and normal palpation of entire chest wall Resp: Effort & Inspection: normal respiratory effort and able to speak in complete sentences Auscultation: wheezes and diminished lung sounds Cardio: Jugular venous distension: no JVD Rate: regular rate Rhythm: r egular rhythm GI: Inspection: Yes normal to inspection Palpation (GI): Soft to palpation Skin: General skin exam: no rashes or lesions noted, elasticity normal and turgor normal Lesions: no lesions Neuro: General: patient oriented x3 Medications Administered Discontinued Medications Generic Name Dose Route Start Last Admin Trade Name Freq PRN Reason Stop Dose Admin Albuterol/Ipratropium 3 ml 07/15/24 01:58 07/15/24 02:27 Albuterol/Iprat 2.5/0.5mg 3 Ml Ampul.Neb INHALE 07/15/24 01:59 3 ml ONCE ONE Administration Magnesium Sulfate 2 gm in 50 mls @ 25 mls/hr 07/15/24 01:58 07/15/24 02:36 Magnesium Sulfate/H2o IV 07/15/24 03:57 25 mls/hr ONCE ONE Administration Methylprednisolone Sodium Succinate 60 mg 07/15/24 01:58 07/15/24 02:30 Methylprednisolone Sod Succ 125 Mg/2 Ml Vial IVPUSH 07/15/24 01:59 Not Given ONCE ONE Methylprednisolone Sodium Succinate 60 mg 07/15/24 02:28 07/15/24 02:36 Methylprednisolone Sod Succ 40 Mg/Ml Vial IVPUSH 07/15/24 02:29 60 mg ONCE ONE Administration Medical Decision Making Medical Decision Making MDM Narrative: Well-appearing 69-year-old female with history of COPD/asthma and seasonal allergies presenting to the emergency department today for continued wheezing. Upon arrival the ED she is saturating 99% on room air appearing in no acute respiratory distress. Initial impression is felt that this is a allergic rhinitis exacerbation into postnasal drip and acute irritation of her upper airway. No evidence of PTX on imaging. EKG without evidence of ischemia troponin is negative ACS is ruled out. This is not consistent with CHF as there is no pulmonary edema or peripheral edema on exam. She was given a duo nebulizer as well as an order for magnesium and a chest x-ray. There is no evidence of pneumonia and as her wheezing was reversible this is not consistent with bronchitis either. She is currently already on prednisone for an asthma exacerbation. She was given IV prednisone as well here as she does not continue to be hypoxic or show any evidence of respiratory distress she does not require oral/IV antibiotics or admission. Advised on allergy management as well as keeping appointment with her head rose grower. She has been advised on reasons to seek medical attention again patient demonstrated verbal understanding of the plan and agreed she is stable for discharge and will be once her magnesium finishes. Differential Diagnosis Differential Diagnoses: The differential diagnosis associated with the presentation includes ptx, acs, pe, asthma exacerbation, acute viral bronchitis, allergic rhinitis exacerbation Admission/Observation Consideration of admission/observation: Escalation of care including admission/observation considered Patient would have been admitted to the hospital had her work up had any findings where hospital admission was appropriate and her clinical presentation warranted hospital admission. Lab Data MDM Lab Attestation statement: I reviewed the patient's lab results. 07/14/24 23:29 07/14/24 23:29 Labs: Lab Results 07/14/24 Range/Units 23:29 WBC 10.8 (4.8-10.8) X10*3/uL RBC 4.80 (4.20-5.50) X10*6/uL Hgb 12.4 (12.0-16.0) g/dl Hct 38.1 (37.0-47.0) % MCV 79.4 L (80.0-98.0) fL MCH 25.8 L (27.0-33.0) pg MCHC 32.5 (31.0-35.0) g/dl RDW 14.6 (11.0-16.0) % Plt Count 272 (160-400) X10*3/uL MPV 9.4 (9.4-12.3) fL Immature Gran % (Auto) 0.9 H (0.0-0.4) % Neut % (Auto) 69.2 (45-73) % Lymph % (Auto) 22.2 (20-40) % Door % (Auto) 7.3 (2-11) % Eos % (Auto) 0.1 (0-4) % Baso % (Auto) 0.3 (0-2) % Lymph # (Auto) 2.4 (1.2-4.9) X10*3/uL Door # (Auto) 0.8 (0.1-1.2) X10*3/uL Eos # (Auto) 0.0 (0.0-0.4) X10*3/uL Baso # (Auto) 0.0 (0.0-0.2) X10*3/uL Abs Immat Gran (auto) 0.10 H (0.00-0.03) X10*3/uL Absolute Neuts (auto) 7.4 (2.0-8.3) x10*3/uL Absolute Nucleated RBC 0.000 (0.0-0.012) X10*3/uL Nucleated RBC % (auto) 0.0 (0.0-0.2) /100WBC Sodium 143 (135-145) mmol/L Potassium 4.2 (3.3-5.1) mmol/L Chloride 108 (96-108) mmol/L Carbon Dioxide 25 (22-29) mmol/L Anion Gap 14 (12-20) BUN 23 H (9-16) mg/dL Creatinine 0.62 (0.5-1.4) mg/dL Estim Creat Clear Calc 69.8 Estimated GFR > 60 Random Glucose 93 (60-115) mg/dL Calcium 9.7 (8.4-10.2) mg/dL Magnesium 2.0 (1.6-2.6) mg/dL Total Bilirubin 0.2 (0.0-1.0) mg/dL AST 16 (5-31) U/L ALT 14 (0-31) U/L Alkaline Phosphatase 92 (39-117) U/L Troponin I High Sens < 2.7 (<3.5-17.0) ng/L Total Protein 7.4 (6.5-8.0) g/dL Albumin 4.3 (3.5-5.0) g/dL Independent Interpretation I performed an independent interpretation of an: EKG and Plain X-Ray Interpretation: No obvious infiltrate or pneumothorax on imaging, NSR 77 bpm, nonspecific T wave changes Radiology Impression Discussion of test interpretation with radiology: I have reviewed the radiologist's reading. Radiologist Impression: Increased peribronchial markings no focal consolidation External Record Review External record reviewed: Inpatient record Tests considered The following testing was considered but not selected: Considered D-dimer/CTA however patient was not tachycardic or hypoxic concerning for PE this was therefore deferred. Prescription Management I considered prescription management with: Other (steroid, already on it) Chronic Conditions Patient?s care impacted by: Other (Asthma/ COPD) Discharge Plan Discharge Clinical Impression: Shortness of breath, Allergic rhinitis, Asthma exacerbation Patient Disposition: Home, Self-Care Instructions: Asthma (DC), Allergies (ED), Postnasal Drip (DC) Additional Instructions: You were seen in or emergency department today for wheezing and shortness of breath. There is no evidence of heart attack a pneumothorax or infectious etiology. You have evidence for allergic rhinitis on exam which is causing postnasal drip and making her upper airway more reactive. You already currently being treated with prednisone. You were given a nebulizer while here along with a steroid and magnesium to help with your asthma. You were not hypoxic or showing any evidence for respiratory distress. Continue to take your allergy medicine twice a day your rescue inhaler as needed and your maintenance inhaler. Follow up with your head rose grower and return to the ED for any new onset of shortness of breath chest pain or difficulty with breathing. Hope you continue to feel well stay hydrated. Prescriptions: No Action montelukast 10 mg tablet 10 mg PO DAILY Qty: 90 3RF Incruse Ellipta 62.5 mcg/actuation blister with device 1 inh inhalation DAILY 30 Days Qty: 30 11RF amlodipine 10 mg tablet 10 mg PO DAILY Qty: 90 3RF ketotifen fumarate 0.025 % (0.035 %) drops 1 drp ophthalmic (eye) BID PRN (Reason: Allergy Symptoms) hydrochlorothiazide 12.5 mg capsule 1 cap PO DAILY lorazepam 1 mg tablet 1 tab PO BID sumatriptan succinate 25 mg tablet 25 mg PO ONCE PRN (Reason: Migraine Headache) valsartan 80 mg tablet 80 mg PO DAILY amitriptyline 50 mg tablet 50 mg PO BEDTIME fluoxetine 20 mg capsule 20 mg PO DAILY (DME) blood pressure test kit-large Kit See Rx Instructions .ROUTE BID Qty: 1 Rx Instructions: As directed azelastine 137 mcg (0.1 %) aerosol,spray 2 spray intranasal BID MDD allergies omeprazole 20 mg capsule,delayed release(DR/EC) 20 mg PO DAILY@0630 (DME) Aerochamber MV Spacer See Rx Instructions .ROUTE .MEDSUPPLY Qty: 1 0RF Rx Instructions: As directed losartan 50 mg tablet 50 mg PO DAILY (DME) nebulizers Misc See Rx Instructions .Route Rx Instructions: As directed albuterol sulfate 2.5 mg /3 mL (0.083 %) solution for nebulization 2.5 mg inhalation Q6H PRN (Reason: shortness of breath or wheezing) 30 Days Qty: 180 11RF sucralfate [Carafate] 100 mg/mL suspension 10 ml PO BID Qty: 500 0RF Dulera 200-5 mcg/actuation HFA aerosol inhaler 2 puff inhalation BID 30 Days Qty: 13 11RF Spiriva Respimat 2.5 mcg/actuation mist 2 puff inhalation DAILY 30 Days Qty: 1 11RF ipratropium bromide 42 mcg (0.06 %) spray,non-aerosol 2 spray intranasal TID PRN (Reason: allergy symptoms) Qty: 15 6RF Rx Instructions: administer into each nostril tizanidine 2 mg tablet 2 mg PO Q12H PRN (Reason: muscle spasm) Qty: 30 0RF albuterol sulfate [Ventolin HFA] 90 mcg/actuation HFA aerosol inhaler 2 puff inhalation QID PRN (Reason: shortness of breath or wheezing) 30 Days Qty: 18 11RF Breztri Aerosphere 160-9-4.8 mcg/actuation HFA aerosol inhaler 2 inh inhalation BID Qty: 10.7 11RF Print Language: Palauan
--- OUTSIDE RECORDS SUMMARY | 2024-07-15 02:11 | XMS_ITS | Encounter Summary ---
Author Organization [facility] Address [address] [place] [address] 7 [place] [address] Care Team Providers Care Flame Hardening Machine Setter Name Role Phone Name, Jay PHAM Primary Care Provider [phone] Reason for Visit * Reason Comments Med Refill Encounter Details Date Type Department Care Team ([facility] st Contact Info) Description 05/07/2022 Refill [facility] MEDICINE [address] [place], [place] [phone] Name, MD Jay [address] [place], [place] [phone] Social History Tobacco Use Types Packs/Day Years [...] on filedocumented in this encounter Care Teams Flame Hardening Machine Setter Relationship Specialty Start Date End Date Name, MD Jay [address] [place] [id number] PCP - General Family Medicine 03/02/18 documented as of this encounter
--- OUTSIDE RECORDS SUMMARY | 2024-07-15 02:11 | XMS_ITS | Clinical Summary ---
Author Organization [facility] Address [address] [phone] Phone Care Team Providers Care Air Cargo Ground Operations Supervisor Name Role Phone Name, Jay PHAM [...] 06/06/2009 Overview (12/27/2020): Without aura Asthma 05/14/2009 Immunizations Immunization Administration Dates Next Due H1N1 [...] Visit [facility] [address] [place] [phone] Ander Sen MD [address] [facility] [address] [place] [address] Health Maintenance Due Date Last Done Comments [...] patient's age to complete this topic Insurance [facility] ([id number]) [facility] ([id number]) Care Teams Air Cargo Ground Operations Supervisor Relationship Specialty Start Date End Date Name, MD Jay [address] [place] [address] PCP - General Internal Medicine 12/07/20
--- OUTSIDE RECORDS SUMMARY | 2024-07-15 02:11 | XMS_ITS | Encounter Summary ---
Author Organization [facility] Address [address] [facility] [address] [place] [address] Phone Care Team Providers Care Guinea Pig Breeder Name Role Phone Name, Jay PHAM Primary Care Provider Unavailabl e Reason for Visit * Reason Comments Med Refill Encounter Details Date Type Department Care Team (Late Contact Info) Description 09/25/2022 Refill [facility] [address] [facility] [address] [place] [address] Amandeep Stuart MD Social History [...] Visit [facility] [address] [place] [phone] Ander Sen MD [phone] [facility] [address] [place] [phone] documented as of this encounter Visit Diagnoses Not on filedocumented in this encounter Care Teams Guinea Pig Breeder Relationship Specialty Start Date End Date Name, MD Jay [address] [place] [address] PCP - General Internal Medicine 12/07/20 documented as of this encounter
--- OUTSIDE RECORDS SUMMARY | 2024-07-15 02:11 | XMS_ITS | Encounter Summary ---
Author Organization [employer] Address [address] [facility] [address] [place] [address] Care Team Providers Care Ceramics Instructor Name Role Phone Name, Jay PHAM Primary Care Provider [phone] Reason for Visit * Reason Comments Med Refill Encounter Details Date Type Department Care Team ([facility] st Contact Info) Description 07/10/2024 Refill [facility] MEDICINE [address] [place], [place] [phone] Giselle Carr MD [address] [place], [place] [phone] Social History Tobacco Use Types Packs/Day Years [...] documented as of this encounter Care Teams Ceramics Instructor Relationship Specialty Start Date End Date Name, MD Jay [address] [place] [address] PCP - General Family Medicine 03/02/18 documented as of this encounter
--- OUTSIDE RECORDS SUMMARY | 2024-07-15 02:12 | XMS_ITS | Encounter Summary ---
Author Organization [employer] Address [address] [place] [address] Care Team Providers Care Machine Adjuster Leader Case Trim Name Role Phone Name, Jay PHAM Primary Care Provider [phone] Encounter Details Date Type Department Care Team ([facility] st Contact Info) Description 07/13/2024 Telephone [facility] [address] [place], [place] [phone] Name, MD Jay [address] [place] [address] Social History Tobacco Use Types Packs/Day Years [...] as of this encounter Miscellaneous Notes * Addendum Note - Jay Neumann MD - 07/14/2024 11:52 AM EDTAddended by: JAY NEUMANN on: 07/14/2024 11:52 AM Modules accepted: Orders * Telephone Encounter - Hannah Sanchez RN - 07/14/2024 11:34 AM EDT Pt reports they forgot to mention during their OV with PCP that they had stopped taking their pravastatin a couple days ago due to side effects. Pt reports everytime they would take it they would experience abdominal pain. Message sent to PCP as an FYI. * Telephone Encounter - Mechelle Osborn RN - 07/14/2024 10:12 AM EDT TC placed to pt per below PCP message. Pt reports they are still feeling the same. Pari [employer] Ticket Seller notes pt can be heard wheezing while on the phone. Pt reports wheezing and chest still feels tight. Pt deniesimprovement on prednisone. Pt unsure if they are having fevers. Pt denies current chills or symptoms of fever. Pt reports they do not want to come [facility] for [facility]-evaluation. Pt reports theywill go to ED. Pari [employer] Ticket Seller recommended re-evaluation based on symptoms. Advised pt data analyst report writer will send a message to PCP to inform symptoms have not improved. Pt verbalized understanding and denies questions at this time. ----- Message from Jay Neumann MD sent at 07/12/2024 1:20 PM EDT ----- Please call her tomorrow to see how she is doing on the prednisone * Telephone Encounter - Mechelle Osborn RN - 07/13/2024 10:26 AM EDT TC placed to pt via BLS straightedge machine operator helper per below PCP message. Pt denies need for straightedge machine operator helper. Pt reports taking started taking medication yesterday and it hasn't had much time to work. Pt reports feeling a little better. Pt reports she was advised by PCP that someone would call to see how she is doingon . Advised pt blue team RN will call pt tomorrow for status check. Message postponed until 07/14/24 to status check pt. ----- Message from Jay Neumann MD sent at 07/12/2024 1:20 PM EDT ----- Please call her tomorrow to see how she is doing on the prednisone documented in this encounter Plan of Treatment Not on file documented as of this encounter Visit Diagnoses Not on filedocumented in this encounter Additional Health Concerns Assessment Noted Time PHQ-9 Depression Total Score: 10 025 1:13 PM EST documented as of this encounter Care Teams Machine Adjuster Leader Case Trim Relationship Specialty Start Date End Date Name, MD Jay [address] [place] [address] PCP - General Family Medicine 03/02/18 documented as of this encounter
--- OUTSIDE RECORDS SUMMARY | 2024-07-15 02:12 | XMS_ITS | Encounter Summary ---
Author Organization [employer] Address [address] [facility] [address] [place] [address] Care Team Providers Care Tie Carrier Name Role Phone Name, Jay PHAM Primary Care Provider [phone] Encounter Details Date Type Department Care Team (Late st Contact Info) Description 07/14/2024 Orders Only GENERIC EXTERNAL DATA DEPARTMENT Provider, Generic External Data Social History Tobacco Use Types Packs/Day Years [...] Procedure Name Priority Date/Time Associated Diagnosis Comments XR CHEST 2 VIEWS Routine 07/14/2024 11:5 0 PM EDT HIGH SENSITIVITY TROPONIN I Routine 07/14/2024 11:29 PM EDT CBC WITH AUTO DIFFERENTIAL Routine 07/14/2024 11:29 PM EDT COMPREHENSIVE METABOLIC PANEL Routine 07/14/2024 11:29 PM EDT documented in this encounter Results * XR Chest 2 Views (07/14/2024 11:50 PM EDT) Anatomical Region Laterality Modality Chest Radiographic Jen ging 07/14/2024 11:5 0 PM EDT Narrative 07/14/2024 11:52 PM EDT ? [facility] ?[address] ?[place] [address] ?XRay Report ? Signed ? Patient: Ezra,Kaitlin ?MR#: [id number] ?? 3 ? : 1955 ?Acct:[id number] ? Age/Sex: 69 / F ?ADM Date: 05/15/25 ? Loc: HO.ED ? Attending Dr: ? Ordering Physician: Generic ED Physician ?? Date of Service: 07/14/24 ?? Procedure(s): XR chest 2V ?? Accession Number(s): [id number] ? cc: Generic ED Physician; Name,Jay PHAM ? CLINICAL HISTORY: sob ? 2 views chest ? Comparison: CR/SR - XR CHEST 2V - 12/10/23 11:31 EDT ? Findings: ?? Cardiac and mediastinal contours are stable. ?? Mild chronic interstitial prominence with scattered peribronchial ?? thickening. ?? No focal consolidation. No effusion. No pneumothorax. ?? No acute osseous finding. ? Impression: ?? Mild chronic interstitial prominence with scattered peribronchial ?? thickening. No focal consolidation. ? This document has been electronically signed by: Julio Benz MD on ?? 07/14/2024 23:50:32 ? Dictated By: ?Julio Benz MD ? Signed By: ?<Electronically signed by Julio Benz MD in OV> ? 07/14/24 2351 ? DD/ 49 ? TD/TT: 07/14/242349 ? Operations And Maintenance Supervisor: ? Procedure Note Donhannah, Image - 07/14/2024 [place] [address] XRay Report Signed Patient: Anish Munguia#: [id number] 3 : 5Acct:[id number] Age/Sex: 69 / FADM Date: 07/14/24 Loc: HO.ED Attending Dr: Ordering Physician: Generic ED Physician Date of Service: 07/14/24 Procedure(s): XR chest 2V Accession Number(s): [id number] cc: Generic ED Physician; Name,Jay PHAM CLINICAL HISTORY: sob 2 views chest Comparison: CR/SR - XR CHEST 2V - 12/10/23 11:31 EDT Findings: Cardiac and mediastinal contours are stable. Mild chronic interstitial prominence with scattered peribronchial thickening. No focal consolidation. No effusion. No pneumothorax. No acute osseous finding. Impression: Mild chronic interstitial prominence with scattered peribronchial thickening. No focal consolidation. This document has been electronically signed by: Julio Benz MD on 07/14/2024 23:50:32 Dictated By: Julio Benz MD Signed By: <Electronically signed by Julio Benz MD in OV> 07/14/242350 DD/ 49 TD/TT: 07/14/242349 Operations And Maintenance Supervisor: [facility] External Provider IMG XR PROCEDURES Edited Result - Final * High Sensitivity Troponin I (07/14/2024 11:29 PM EDT) TROPONIN I HIGH SENSITIVITY <2.7 <3.5 - 17.0 ng/L [facility] Comment:The Felipe high sens itivity Troponin-I results should beused in conjunction with other diagnostic information suchas ECG, clinical observations and information, and patientsymptoms to aid in the diagnosis of [place]. 07/14/2024 11:2 9 PM EDT 07/14/2024 11:41 PM EDT us Generic External Data Provider LAB BLOOD ORDERAB LES Final Result [facility] [address] [place] [phone] * (ABNORMAL) Comprehensive Metabolic Panel (07/14/2024 11:29 PM EDT) Pathologist [facility] Sodium 143 135 - 145 mmol/L [facility] Potassium 4.2 3.3 - 5.1 mmol/L [facility] Chloride 108 96 - 108 mmol/L [facility] Carbon Dioxide 25 22 - 29 mmol/L [facility] Anion Gap 14 12 - 20 [facility] Urea Nitrogen (BUN) 23(H) 9 - 16 mg/dL [facility] Creatinine, Serum 0.62 0.5 - 1.4 mg/dL [facility] Creatinine Clr Calc Pharmacy 69.8 [facility] Comment:Provided height and weight: 160.02 cm,58.513 kg.eGFR (calculated from the MDRD study equation) and eCrCl(calculated from the Cockcroft-Gault equation) are based ondifferent parameters and may not yield comparable results.If eCrCl result is absurd, please check patient'sheight/weight. Estimated Glomerular Filt Rate >60 [facility] Comment:Chronic Kidney Disea se: Estimated GFR < 60 mL/min/1.19i8Mnconv Kidney Disease: Estimated GFR < 15 mL/min/1.73m2 Glucose 93 60 - 115 mg/dL [facility] Calcium 9.7 8.4 - 10.2 mg/dL [facility] Bilirubin, Total 0.2 0.0 - 1.0 mg/dL [facility] Aspartate Amino Transferase 16 5 - 31 U/L [facility] Alanine Aminotransferase 14 0 - 31 U/L [facility] Total Protein 7.4 6.5 - 8.0 g/dL [facility] Albumin Level 4.3 3.5 - 5.0 g/dL [facility] Alkaline Phosphatase 92 39 - 117 U/L [facility] 07/14/2024 11:2 9 PM EDT 07/14/2024 11:41 PM EDT us Generic External Data Provider LAB BLOOD ORDERAB LES Final Result [facility] [address] [place], [place] [phone] * (ABNORMAL) CBC auto differential (07/14/2024 11:29 PM EDT) White Blood Count 10.8 4.8 - 10.8 X10*3/uL [facility] Red Blood Count 4.80 4.20 - 5.50 X10*6/uL [facility] Hemoglobin 12.4 12.0 - 16.0 g/dl [facility] Hematocrit 38.1 37.0 - 47.0 % [facility] Mean Corpuscular Volume 79.4(L) 80.0 - 98.0 fL [facility] Mean Corpuscular Hemoglobin 25.8(L) 27.0 - 33.0 pg [facility] Mean Corpuscular HGB Conc 32.5 31.0 - 35.0 g/dl [facility] Red Cell Distribution Width 14.6 11.0 - 16.0 % [facility] Platelet Count 272 160 - 400 X10*3/uL [facility] Mean Platelet Volume 9.4 9.4 - 12.3 fL [facility] Neutrophils Percent Auto 69.2 45 - 73 % [facility] Imm Gran Pct Auto 0.9(H) 0.0 - 0.4 % [facility] Lymphocytes Percent Auto 22.2 20 - 40 % [facility] Monocytes Percent Auto 7.3 2 - 11 % [facility] Eosinophils Percent Auto 0.1 0 - 4 % [facility] Basophils Percent Auto 0.3 0 - 2 % [facility] NRBC Pct Auto 0.0 0.0 - 0.2 /100WBC [facility] Neutrophils Absolute Auto 7.4 2.0 - 8.3 x10*3/uL [facility] Imm Gran Abs Auto 0.10(H) 0.00 - 0.03 X10*3/uL [facility] Lymphocytes Absolute Auto 2.4 1.2 - 4.9 X10*3/uL [facility] Monocytes Absolute Auto 0.8 0.1 - 1.2 X10*3/uL [facility] Eosinophils Absolute Auto 0.0 0.0 - 0.4 X10*3/uL [facility] Basophils Absolute Auto 0.0 0.0 - 0.2 X10*3/uL [facility] NRBC Abs Auto 0.000 0.0 - 0.012 X10*3/uL [facility] 07/14/2024 11:2 9 PM EDT 07/14/2024 11:41 PM EDT us Generic External Data Provider LAB BLOOD ORDERAB LES Final Result Performing Organization Address City/State/[facility] Co de Phone Number [facility] [address] [place] [phone] documented in this encounter Visit Diagnoses Not on filedocumented in this encounter Additional Health Concerns Assessment Noted Time PHQ-9 Depression Total Score: 10 025 1:13 PM EST documented as of this encounter Care Teams Tie Carrier Relationship Specialty Start Date End Date Name, MD Jay [address] [place] [address] PCP - General Family Medicine 03/02/18 documented as of this encounter
--- OUTSIDE RECORDS SUMMARY | 2024-07-15 02:12 | XMS_ITS | Clinical Summary ---
Author Organization [employer] Address [address] [facility] 7 [place] [address] Care Team Providers Care Oil Paint Shader Name Role Phone Name, Jay PHAM Primary Care Provider [phone] Allergies Active Allergy Reactions Criticality Noted Date [...] recorded as penicillamine Previously recorded as penicillamine Pravastatin 07/14/2024 Abdominal pain Simvastatin Other,Rash Low 05/14/2009 Other reaction(s): Rash/Dermatitis [...] MG/1.91ML solution prefilled syringe 03/18/19 23 Active topiramate (Topamax) 25 MG tablet Take [...] a day 1 kit 09/09/19 24 Active colestipol (Colestid) 1 g tablet [...] 75 mL 1 12/30/19 24 2024 Active cholecalcifero l (Vitamin D-3) 25 MCG [...] MORNING 90 tablet 3 06/02/19 25 Active SUMAtriptan (Imitrex) 25 MG tablet TAKE 1 TABLET BY MOUTH 1 (ONE) TIME IF NEEDED FOR MIGRAINE. MAY REPEAT DOSE ONCE IN 2 HOURS IF NO RELIEF. DO NOT EXCEED 2 DOSES IN 24 HOURS. 9 tablet 3 07/12/19 25 Active predniSONE (Deltasone) 20 MG tablet Take 2 tablets (40 mg) by mouth Once per day for 5 days. 10 tablet 07/13/19 25 2024 Active Breztri Aerosphere 160-9-4.8 MCG/ACT aerosol Take 2 puffs by mouth 2 times daily. 04/05/19 25 Active tiotropium (Spiriva Respimat) 1.25 MCG/ACT inhaler 12/11/19 21 2024 Discontinued(T herapy completed) mometasone-for moterol (Dulera 200) 200-5 MCG/ACT inhalerIndicat ions:Severe persistent asthma, unspecified whether complicated Inhale 2 puffs in the morning and at bedtime. Rinse mouth with water after use to reduce aftertaste and incidence of candidiasis. Do not swallow. 13 g 11 12/30/19 24 2024 Discontinued(T herapy completed) SUMAtriptan (Imitrex) 25 MG tablet Take 1 tablet (25 mg) by mouth 1 (one) time if needed for migraine. May repeat dose once in 2 hours if no relief. Do not exceed 2 doses in 24 hours. 9 tablet 3 03/14/19 25 2024 Discontinued pravastatin (Pravachol) 20 MG tablet TAKE 1 TABLET BY MOUTH EVERY DAY IN THE MORNING 90 tablet 1 06/11/19 25 2024 Discontinued(S selwyn effects) Hospital, Clinic, or Other Facility Administered Medication Ordered Dose Route Frequency Start Date End Date Status predniSONE (Deltasone) tablet 50 mgIndications:Exacerbation of asthma, unspecified asthma severity, unspecified whether persistent,Seasonal allergic rhinitis due to other allergic trigger 50 mg PO Daily 07/12/2024 Active Active Problems Problem Noted Date Diagnosed [...] Encounters Date Type Department Care Team Description 07/14/2024 Orders Only GENERIC EXTERNAL DATA DEPARTMENT Provider, Generic External Data 07/13/2024 Telephone [facility] [place] [address] Jay Moore MD 07/12/2024 1:00 PM EDT Office Visit [facility] [address] [place] [address] Jay Moore MD Exacerbation of asthma, unspecified asthma severity, unspecified whether persistent (Primary Dx); Seasonal allergic rhinitis due to other allergic trigger 07/12/2024 Travel 07/11/2024 Telephone [facility] [address] [place] [address] Jay Moore MD chart prep 07/10/2024 Refill [facility] [address] [facility] [place] [phone] Giselle Carr MD 06/10/2024 Telephone [facility] [address] [place] [address] Jay Moore MD Medication Question 06/10/2024 Refill [facility] [address] [facility] [place] [address] Jay Moore MD 06/09/2024 Orders Only [facility] External Provider, [facility] 06/01/2024 Refill [facility] [address] [place] [address] Name, MD Jay 05/05/2024 Refill [facility] [address] [place] [address] Name, MD Jay 05/04/2024 Refill [facility] [address] [place] [address] Name, MD Jay Migraine without status migrainosus, not intractable, unspecified migraine type 04/21/2024 Telephone [facility] [address] [facility], [place] [phone] Keyana Ledbetter MA may recalls from Last 3 Months Immunizations Immunization Administration Dates Next Due Influenza injectable quadriv alent IIV4 with preservative 12/12/2016,01/29/2016 Influenza, IIV3, injectable 03/25/2013, 1,03/04/2010 Novel [id number], preservative-free 05/14 PPD Test 06/24/2010 Pneumococcal Polysaccharide [...] Sign Reading Time Taken Comments Blood Pressure 128/81 07/12/2024 1:00 PM EDT Pulse 90 07/12/2024 1:00 PM EDT Temperature 36.6 ??C (97.9 ??F) 07/12/2024 1:00 PM ED T Respiratory Rate 18 07/12/2024 1:00 PM EDT Oxygen Saturation 97% 07/12/2024 1:00 PM EDT Inhaled Oxygen Concentration - - Weight 60.6 kg (133 lb 9.6 oz) 07/12/2024 1:00 P M EDT Height 160 cm (5' 3 ) 07/12/2024 1:00 PM EDT Body Mass Index 23.67 07/12/2024 1:00 PM EDT Plan of Treatment Health Maintenance [...] 60-74 years 1-dose series) 2014 COVID-19 Vaccine (1 - season) 2023 Influenza Vaccine (#1) 2023 7, 01/29/2016, 03/25/2013, Additional history exists Alcohol/Substance Use Screening 03/22/2025 03/22/2024 Depression Screening 03/22/2025 03/22/2024, 03/22/19 25 SDOH Screening 03/22/2025 03/22/2024 Mammogram 06/10/2025 06/11/2023, 10/2021, 03/05/2020, Additional history exists Tobacco Screening 07/12/2025 07/12/2024 DTaP/Tdap/Td Vaccines (4 - Td or Tdap) [...] patient's age to complete this topic Meningococcal B Vaccine Aged Out No l onger eligible based on patient's age to complete [...] TROPONIN I Routine 07/14/2024 11:29 PM EDT COMPREHENSIVE METABOLIC PANEL Routine 07/14/2024 11:29 PM EDT CBC WITH AUTO DIFFERENTIAL Routine 07/14/2024 11:29 PM EDT XR SHOULDER 2+ VIEWS RIGHT Routine 06/10/2024 9:01 AM EDT BI MAMMOGRAM SCREENING TOMOSYNTHESIS BILATERAL Routine 06/11/2023 12:12 PM EDT LIPID PANEL, STANDARD Routine 04/28/2022 11:01 AM EST from Last 3 Months or Most Recently Relevant to Health Maintenance Results * XR Chest 2 Views (07/14/2024 11:50 PM EDT) Anatomical Region Laterality Modality Chest Radiographic Jen ging 07/14/2024 11:5 0 PM EDT Narrative 07/14/2024 11:52 PM EDT ? [facility] ?[address] ?[place] [address] ?XRay Report ? Signed ? Patient: Kaitlin Munguia ?MR#: [id number] ?? 3 ? : 1955 ?Acct:[id number] ? Age/Sex: 69 / F ?ADM Date: 07/14/24 ? Loc: HO.ED ? Attending Dr: ? Ordering Physician: Generic ED Physician ?? Date of Service: 07/14/24 ?? Procedure(s): XR chest 2V ?? Accession Number(s): [id number] ? cc: Generic ED Physician; Name,Jay PHAM [...] by Julio Benz MD in OV> ? 07/14/242350 ? DD/ 49 ? TD/TT: 05/15/25 2350 ? Estate Tax Examiner: ? Procedure Note Donotuseinterpreter, Image - 07/14/[address] [address] XRay Report Signed Patient: Anish Munguia#: [id number] 3 : 5Acct:[id number] Age/Sex: 69 / FADM Date: 07/14/24 Loc: HO.ED Attending Dr: Ordering Physician: Generic ED Physician Date of Service: 07/14/24 Procedure(s): XR chest 2V Accession Number(s): [id number] cc: Generic ED Physician; Name,Jay PHAM CLINICAL [...] MD Signed By: <Electronically signed by Julio eBnz MD in OV> 07/14/24 2351 DD/ 2350 TD/TT: 07/14/24 235 Estate Tax Examiner: [facility] External Provider IMG XR PROCEDURES Edited Result - Final * High Sensitivity Troponin I (07/14/2024 11:29 PM EDT) TROPONIN I HIGH SENSITIVITY <2.7 <3.5 - 17.0 ng/L [facility] Comment:The Felipe high sens itivity Troponin-I results should beused in conjunction with other diagnostic information suchas ECG, clinical observations and information, and patientsymptoms to aid in the diagnosis of MT. 07/14/2024 11:2 9 PM EDT 07/14/2024 11:41 PM EDT us Generic External Data Provider LAB BLOOD ORDERAB LES Final Result [facility] [address] [place] [address] [phone] * (ABNORMAL) CBC auto differential (07/14/2024 11:29 PM EDT) White Blood Count 10.8 4.8 - 10.8 X10*3/uL [facility] Red Blood Count 4.80 4.20 - 5.50 X10*6/uL [facility] Hemoglobin 12.4 12.0 - 16.0 g/dl [facility] Hematocrit 38.1 37.0 - 47.0 % [facility] Mean Corpuscular Volume 79.4(L) 80.0 - 98.0 fL [facility] Mean Corpuscular Hemoglobin 25.8(L) 27.0 - 33.0 pg [facility] Mean Corpuscular HGB Conc 32.5 31.0 - 35.0 g/dl [facility] Red Cell Distribution Width 14.6 11.0 - 16.0 % [facility] Platelet Count 272 160 - 400 X10*3/uL [facility] Mean Platelet Volume 9.4 9.4 - 12.3 fL [facility] Neutrophils Percent Auto 69.2 45 - 73 % [facility] Imm Gran Pct Auto 0.9(H) 0.0 - 0.4 % [facility] Lymphocytes Percent Auto 22.2 20 - 40 % [facility] Monocytes Percent Auto 7.3 2 - 11 % [facility] Eosinophils Percent Auto 0.1 0 - 4 % [facility] Basophils Percent Auto 0.3 0 - 2 % [facility] NRBC Pct Auto 0.0 0.0 - 0.2 /100WBC [facility] Neutrophils Absolute Auto 7.4 2.0 - 8.3 x10*3/uL [facility] Imm Gran Abs Auto 0.10(H) 0.00 - 0.03 X10*3/uL [facility] Lymphocytes Absolute Auto 2.4 1.2 - 4.9 X10*3/uL [facility] Monocytes Absolute Auto 0.8 0.1 - 1.2 X10*3/uL [facility] Eosinophils Absolute Auto 0.0 0.0 - 0.4 X10*3/uL [facility] Basophils Absolute Auto 0.0 0.0 - 0.2 X10*3/uL [facility] NRBC Abs Auto 0.000 0.0 - 0.012 X10*3/uL [facility] 07/14/2024 11:2 9 PM EDT 07/14/2024 11:41 PM EDT us Generic External Data Provider LAB BLOOD ORDERAB LES Final Result [facility] [address] [place] [address] [phone] * (ABNORMAL) Comprehensive Metabolic Panel (07/14/2024 11:29 PM EDT) Sodium 143 135 - 145 mmol/L [facility] Potassium 4.2 3.3 - 5.1 mmol/L [facility] Chloride 108 96 - 108 mmol/L [facility] Carbon Dioxide 25 22 - 29 mmol/L [facility] Anion Gap 14 12 - 20 [facility] Urea Nitrogen (BUN) 23(H) 9 - 16 mg/dL [facility] Creatinine, Serum 0.62 0.5 - 1.4 mg/dL [facility] Creatinine Clr Calc Pharmacy 69.8 [facility] Comment:Provided height and weight: 160.02 cm,58.513 kg.eGFR (calculated from the MDRD study equation) and eCrCl(calculated from the Cockcroft-Gault equation) are based ondifferent parameters and may not yield comparable results.If eCrCl result is absurd, please check patient'sheight/weight. Estimated Glomerular Filt Rate >60 [facility] Comment:Chronic Kidney Disea se: Estimated GFR < 60 mL/min/1.34a7Xdkxic Kidney Disease: Estimated GFR < 15 mL/min/1.73m2 Glucose 93 60 - 115 mg/dL [facility] Calcium 9.7 8.4 - 10.2 mg/dL [facility] Bilirubin, Total 0.2 0.0 - 1.0 mg/dL [facility] Aspartate Amino Transferase 16 5 - 31 U/L [facility] Alanine Aminotransferase 14 0 - 31 U/L [facility] Total Protein 7.4 6.5 - 8.0 g/dL [facility] Albumin Level 4.3 3.5 - 5.0 g/dL [facility] Alkaline Phosphatase 92 39 - 117 U/L [facility] 07/14/2024 11:2 9 PM EDT 07/14/2024 11:41 PM EDT us Generic External Data Provider LAB BLOOD ORDERAB LES Final Result [facility] [address] [place] [address] [phone] * XR Shoulder 2+ Views Right (06/10/2024 9:01 AM EDT) Anatomical Region Laterality Modality Upper Extremities, Shoulder Right Radi ographic Imaging 06/10/2024 9:01 AM EDT Narrative 06/10/2024 9:02 AM EDT ? [facility] ?[address] ?[place] [address] ?XRay Report ? Signed ? Patient: Ezra,Kaitlin ?MR#: [id number] ?? 3 ? : 1955 ?Acct:[id number] ? Age/Sex: 69 / F ?ADM Date: 04/10/25 ? Loc: HO.XRAY ? Attending Dr: Nelly WERNER ? Ordering Physician: Nelly Contreras ?? Date of Service: 06/09/24 ?? Procedure(s): XR shoulder RT min 2V ?? Accession Number(s): [id number] ? cc: Nelly Contreras; Name,Jay PHAM ? CLINICAL HISTORY: M25.511 - Pain in right shoulder ? 3 view right shoulder ? Comparison: None ? Findings: ?? Bones intact. No dislocations. ?? There are mild degenerative changes of the glenohumeral joint. ?? No erosions. No radiopaque foreign body. ? There are postoperative changes with several surgical anchors noted. ?? There is osteophytic squaring of the greater tuberosity compatible with ?? chronic rotator cuff disease. ?? There is narrowing of the acromial humeral interval consistent with ?? impingement. ? IMPRESSION: ?? 1. Osteophytic squaring of the greater tuberosity suggesting chronic ?? rotator cuff disease. ?? 2. Narrowing of the acromial humeral interval suggesting evidence of ?? impingement. ?? 3. Postoperative changes. ?? 4. Mild glenohumeral degenerative changes. ? This document has been electronically signed by: Christiano Hutchins MD on ?? 06/10/2024 09:01:19 ? Dictated By: ?Christiano Hutchins MD ? Signed By: ?<Electronically signed by Christiano Hutchins MD in OV> ? 06/10/24 0902 ? DD/ 0 ? TD/TT: 06/10/24900 ? Estate Tax Examiner: ? Procedure Note José Miguel Salcedo - 06/10/2024 [place] [address] XRay Report Signed Patient: Anish Munguia#: [id number] 3 : 5Acct:[id number] Age/Sex: 69 / FADM Date: 06/09/24 Loc: HO.[place] Attending Dr: Nelly WERNER Ordering Physician: Nelly Contreras Date of Service: 06/09/24 Procedure(s): XR shoulder RT min 2V Accession Number(s): [id number] cc: Nelly Contreras; Name,Jay PHAM CLINICAL HISTORY: M25.511 - Pain in right shoulder 3 view right shoulder Comparison: None Findings: Bones intact. No dislocations. There are mild degenerative changes of the glenohumeral joint. No erosions. No radiopaque foreign body. There are postoperative changes with several surgical anchors noted. There is osteophytic squaring of the greater tuberosity compatible with chronic rotator cuff disease. There is narrowing of the acromial humeral interval consistent with impingement. IMPRESSION: 1. Osteophytic squaring of the greater tuberosity suggesting chronic rotator cuff disease. 2. Narrowing of the acromial humeral interval suggesting evidence of impingement. 3. Postoperative changes. 4. Mild glenohumeral degenerative changes. This document has been electronically signed by: Christiano Hutchins MD on 06/10/2024 09:01:19 Dictated By: Christiano Hutchins MD Signed By: <Electronically signed by Christiano Hutchins MD in OV> 06/10/24901 DD/ 0 TD/TT: 06/10/24900 Estate Tax Examiner: [facility] External Provider IMG XR PROCEDURES Final Result * BI Mammogram Screening Tomosynthesis Bilateral (06/11/2023 12:12 PM EDT) Anatomical Region Laterality Modality Breast Bilateral Mammography 06/11/2023 12:1 2 PM EDT Narrative 07/09/2023 4:17 AM EDT ? [facility] [place] ? [address] ?[place] [address] ? Mammography Report ? Signed ? Patient: Ezra,Kaitlin ?MR#: [id number] ?? 3 ? : 1955 ?Acct:[id number] ? Age/Sex: 68 / F ?ADM Date: 04/11/24 ? Loc: HO.MAMMO ? Attending : Jay Name MD ? Ordering Physician: Name,Jay MD ?Results: 2Benign Fi ?? ndings ? Date of Service: 06/11/23 ?Follow Up: 1 Year From Orig ?? inal Mammogram ? Procedure(s): MM tomosynthesis screening BI ?? Accession Number(s): [id number] ? cc: Name,Jay PHAM ? EXAMINATION: ?? MM SCREENING DIGITAL BREAST TOMOSYNTHESIS, BILATERAL ? CLINICAL INFORMATION: ? Screening. Asymptomatic. ? The patient is status post bilateral breast reduction. ? COMPARISON: ?? Mammography: This study is compared with prior exams dating back to ?? 2017. ? TECHNIQUE: ?? Digital breast tomosynthesis is [...] 07/09/23411 ? DD/ 11 ? TD/TT: ? Estate Tax Examiner: ? Procedure Note José Miguel Salcedo - 07/09/2023 [facility] [address] [place], [place] [address] Mammography Report Signed Patient: Anish Munguia#: [id number] 3 : 5Acct:[id number] Age/Sex: 68 / FADM Date: 06/11/23 Loc: HO.MAMMO Attending Dr: Jay Moore MD Ordering Physician: Jay Moore MDResults: 2Benign Fi ndings Date of Service: 06/11/23Follow Up: 1 Year From Orig ina Mammogram Procedure(s): MM tomosynthesis screening BI Accession Number(s): [id number] cc: Jay Moore MD EXAMINATION: MM SCREENING [...] in OV> 07/09/23 0412 DD/ 1212 TD/TT: Estate Tax Examiner: Jay Moore MD IM BI PROCEDURES Edited Result - Final * Lipid Panel, Standard (04/28/2022 11:01 AM EST) Triglycerides 171 mg/dL [facility] Comment:Desirable Triglyceri de: less than 150 mg/dLBorderline High Triglyceride 150-199 mg/dLHigh Triglyceride: 200-499 mg/dLVery High Triglyceride: greater than or equal to 5OO mg/dL Cholesterol 259 mg/dL [facility] Comment:Desirable Cholestero l: less than 200 mg/dLBorderline High Cholesterol: 200-239 mg/dLHigh Cholesterol: greater than 239 mg/dL LDL Cholesterol Calculated 190 mg/dl [facility] Comment:Desirable LDL: less than 100 mg/dLNear Optimal/Above Optimal LDL: 110- 129 mg/dLBorderline High LDL: 130-159 mg/dLHigh LDL: 160-189 mg/dLVery High LDL: greater than or equal to 190 mg/dL HDL Cholesterol 35 mg/dL [facility] Comment:Desirable HDL: great er than 40 mg/dL Note: This HDL assay may give artificially low results in patients with liver disease. 04/28/2022 11:0 1 AM EST 04/28/2022 11:01 AM EST us [facility] External Provider LAB BLO OD ORDERABLES Final Result [facility] [address] [place], [place] [phone] from Last 3 Months or Most Recently Relevant to Health Maintenance Insurance [facility] [employer] (HMO D-SNP) [place] [id number] Care Teams Oil Paint Shader Relationship Specialty Start Date End Date Name, MD Jay [address] [place] [phone] PCP - General Family Medicine 03/02/18
--- OUTSIDE RECORDS SUMMARY | 2024-07-15 02:12 | XMS_ITS | Encounter Summary ---
Author Organization [employer] Address [address] [facility] [address] [place] [address] Care Team Providers Care Etl Tester Name Role Phone Name, Jay PHAM Primary Care Provider [phone] Reason for Visit * Reason Onset Date Comments Hospital Follow-up 12/15/2023 Encounter Details Date Type Department Care Team ([facility] Contact Info) Description 12/15/2023 Telephone [facility] [address] [place], [place] [phone] Name, MD Jay [address] [place], [place] [phone] Hospital Follow-up Social History Tobacco Use Types [...] from pt requesting a HDF appt. Hospital: [facility] Date of admission: 12/10/23 Discharge date: 12/14/23 Diagnosed: Asthma Attack (Sami Speaker) documented in this encounter Plan of Treatment Not on file documented as of this encounter Visit Diagnoses Not on filedocumented in this encounter Additional Health Concerns Assessment Noted Time PHQ-9 Depression Total Score: 11 024 9:40 AM EDT documented as of this encounter Care Teams Etl Tester Relationship Specialty Start Date End Date Name, MD Jay [address] [place] [address] PCP - General Family Medicine 03/02/18 documented as of this encounter
--- OUTSIDE RECORDS SUMMARY | 2024-07-15 02:12 | XMS_ITS | Encounter Summary ---
Author Organization [employer] Address [address] [place] [address] Care Team Providers Care Anodizer Name Role Phone Name, Jay PHAM Primary Care Provider [phone] Encounter Details Date Type Department Care Team (Latest Contact Info) Description 07/12/2024 Travel Social History Tobacco Use Types Packs/Day Years [...] documented as of this encounter Care Teams Anodizer Relationship Specialty Start Date End Date Name, MD Jay [address] [place] [address] PCP - General Family Medicine 03/02/18 documented as of this encounter
--- OUTSIDE RECORDS SUMMARY | 2024-07-15 02:12 | XMS_ITS | Encounter Summary ---
Author Organization [employer] Address [address] [facility] [address] [place] [address] Care Team Providers Care Metals Analyst Name Role Phone Name, Jay PHAM Primary Care Provider [phone] Reason for Visit * Reason Comments Follow-up Encounter Details Date Type Department Care Team ([facility] Contact Info) Description 07/12/2024 1:00 PM EDT Office Visit [facility] [address] [place], [place] [id number] Name, MD Jay [address] [place] [address] Exacerbation of asthma, unspecified asthma severity, unspecified whether persistent (Primary Dx); Seasonal allergic rhinitis due to other allergic trigger Social History Tobacco Use Types Packs/Day Years [...] Mass Index 23.67 07/12/2024 1:00 PM EDT documented in this encounter Progress Notes * Jay Moore MD - 07/12/2024 1:00 PM EDT Subjective Patient ID: Kaitlin Munguia is a 69 y.o. female who presents for Follow-up. Patient comes for follow-up visit. She has a personal history of asthma and seasonal allergies. She has been having symptoms of allergic rhinitis and asthma exacerbation for the past week. She is using all of her inhalers as prescribed and is requiring albuterol 2 or 3 times a day. No fevers or chills. No chest pain. She speaks in full sentences and her oxygen saturation is normal. Review of Systems Constitutional: Negative for chills and fever. HENT: Positive for postnasal drip, rhinorrhea and voice change. Respiratory: Positive for cough, shortness of breath and wheezing. Cardiovascular: Negative for chest pain. Musculoskeletal: She describes chronic bilateral knee pain, shoulder pain, right posterior neck pain Visit Vitals BP 128/81 (BP Location: Left arm, Patient Position: Sitting, BP Cuff Size: Adult) Pulse 90 Temp 97.9 ??F (36.6 ??C) (Temporal) Resp 18 Ht 5' 3 (1.6 m) Wt 133 lb 9.6 oz (60.6 kg) SpO2 97% BMI 23.67 kg/m?? Smoking Status Former BSA 1.64 m?? Objective Physical Exam Constitutional: General: She is not in acute distress. Appearance: Normal appearance. She is not toxic-appearing. Cardiovascular: Rate and Rhythm: Normal rate and regular rhythm. Heart sounds: No murmur heard. No gallop. Pulmonary: Effort: Pulmonary effort is normal. No respiratory distress. Breath sounds: Wheezing present. Musculoskeletal: Right lower leg: No edema. Left lower leg: No edema. Neurological: Mental Status: She is alert. Assessment/Plan Diagnoses and all orders for this visit: Exacerbation of asthma, unspecified asthma severity, unspecified whether persistent Comments: Patient presents with exacerbation most likely secondary to seasonal allergies. I encouraged to continue using inhalers as prescribed including her Breztri Aerosphere for control, rescue albuterol asneeded, continue daily Faye, and azelastine nasal solution. I prescribed the patient a short course of prednisone. She is encouraged to call or come back if she does not feel much better in a couple of days. I will instruct the nurses to call her to see how she is doing tomorrow. I will give herthe first dose of prednisone in office. Orders: - predniSONE (Deltasone) tablet 50 mg Seasonal allergic rhinitis due to other allergic trigger - predniSONE (Deltasone) tablet 50 mg Other orders - predniSONE (Deltasone) 20 MG tablet; Take 2 tablets (40 mg) by mouth Once per day for 5 days. documented in this encounter Plan of Treatment Not on file documented as of this encounter Visit Diagnoses Diagnosis Exacerbation of asthma, unspecified asthma severity, unspecified whether persistent- Primary Seasonal allergic rhinitis due to other allergic trigger documented in this encounter Administered Medications Active Administered Medications - up to 3 most recent administrations Medication Order MAR Action Action Date Dose Rate Site predniSONE (Deltasone) tablet 50 mg 50 mg, Oral, Daily, First dose on Thu07/12/24 at 1315Indications:Exacerbation of asthma, unspecified asthma severity, unspecified whether persistent,Seasonal allergic rhinitis due to other allergic trigger Given 07/12/2024 1:19 PM EDT 50 mg documented in this encounter Additional Health Concerns Assessment Noted Time PHQ-9 Depression Total Score: 10 025 1:13 PM EST documented as of this encounter Care Teams Metals Analyst Relationship Specialty Start Date End Date Name, MD Jay [address] [place] [address] PCP - General Family Medicine 03/02/18 documented as of this encounter
--- OUTSIDE RECORDS SUMMARY | 2024-07-15 02:12 | XMS_ITS | Encounter Summary ---
Author Organization [employer] Address [address] [facility] [address] [place] [address] Care Team Providers Care Machine Joiner Cementer Name Role Phone Name, Jay PHAM Primary Care Provider [phone] Reason for Visit * Reason Onset Date Comments chart prep 07/11/2024 Encounter Details Date Type Department Care Team ([facility] st Contact Info) Description 07/11/2024 Telephone [facility] [address] [place], [place] [phone] Name, MD Jay [address] [place], [place] [phone] chart prep Social History Tobacco Use Types [...] encounter Miscellaneous Notes * Telephone Encounter - Zaheer Calderon MA - 07/11/2024 2:10 PM EDT Chart Prep Labs: done from 03/22/24 Images: done shoulder x-ray 06/09/24 Referrals: not applicable Vaccines due: PCV20, RSV, and Zoster Screenings: colonoscopy Overdue care gaps: A1c, Glucose, Disability screen, and Tobacco documented in this encounter Plan of Treatment Not on file documented as of this encounter Visit Diagnoses Not on filedocumented in this encounter Additional Health Concerns Assessment Noted Time PHQ-9 Depression Total Score: 10 025 1:13 PM EST documented as of this encounter Care Teams Machine Joiner Cementer Relationship Specialty Start Date End Date Name, MD Jay [address] [place] [address] PCP - General Family Medicine 03/02/18 documented as of this encounter
[2024-07-15] MEDS: Albuterol/Iprat 2.5/0.5MG 3 ML AMPUL.NEB INHALE (02:27)
[2024-07-15 02:28] VITALS: PULSE 68; RESP 18; O2SAT 100
[2024-07-15] MEDS: methylPREDNISolone Sod Succ 40 MG/ML VIAL 60 MG IVPUSH (02:36)
[2024-07-15] MEDS: Magnesium Sulfate/H2O 2 GM/50 ML PIGGYBACK IV (02:36)
[2024-07-15 02:56] VITALS: BP 160/78; PULSE 97; RESP 17; TEMP 36.2; O2SAT 96
[2024-07-15 04:41] VITALS: BP 148/63; PULSE 76; RESP 18; TEMP 36.2; O2SAT 99
== END 2024-07-15 04:45 | disposition home or self-care (01) ==
PROVIDERS: Emergency Provider Internal Medicine; PCP Internal Medicine Geriatric Medicine
DX: J45.901 Unspecified asthma with (acute) exacerbation (principal); J44.9 Chronic obstructive pulmonary disease, unspecified; J30.9 Allergic rhinitis, unspecified; R06.02 Shortness of breath; R94.31 Abnormal electrocardiogram [ECG] [EKG]; Z79.899 Other long term (current) drug therapy
CPT/HCPCS: 36415; 71046; 80053; 83735; 84484; 85025; 93005; 94640; 96365; 96366; 96375; 99284; 99285; J2919; J3475

== ENCOUNTER → 2024-07-14 23:25 | Outpatient (BNV) | payer OTHER, SELFPAY | PROVIDERS: PCP Internal Medicine Geriatric Medicine; Visit Provider Radiology Vascular & Interventional Radiology | DX: R06.02 Shortness of breath (principal) | CPT/HCPCS: 71046 ==

== ENCOUNTER → 2024-07-14 23:28 | Outpatient (BNV) | payer OTHER, SELFPAY | PROVIDERS: Emergency Provider Internal Medicine; PCP Internal Medicine Geriatric Medicine; Visit Provider Internal Medicine Cardiovascular Disease | DX: R94.31 Abnormal electrocardiogram [ECG] [EKG] (principal); R06.02 Shortness of breath | CPT/HCPCS: 93010 ==

== ENCOUNTER 2024-07-22 12:47 | Outpatient (AMB) | payer OTHER, SELFPAY ==
--- OUTSIDE RECORDS SUMMARY | 2024-07-22 12:51 | XMS_ITS | Encounter Summary ---
Author Organization [facility] Address [address] [facility] [address] [place] [address] Phone Care Team Providers Care Customer Resolution Specialist Name Role Phone Name, Jay PHAM Primary Care Provider Unavailabl e Reason for Visit * Reason Comments Med Refill Encounter Details Date Type Department Care Team (Late Contact Info) Description 09/25/2022 Refill [facility] [address] [facility] [address] [facility] [address] [place] [address] Amandeep Sturat MD Social History Tobacco Use Types Packs/Day [...] Visit [facility] [address] [place] [phone] Ander Sen MD [address] [facility] [address] [place] [phone] documented as of this encounter Visit Diagnoses Not on filedocumented in this encounter Care Teams Customer Resolution Specialist Relationship Specialty Start Date End Date Name, MD Jay [address] [place] [address] PCP - General Internal Medicine 12/07/20 documented as of this encounter
[2024-07-22 12:56] VITALS: BP 124/72; PULSE 86; O2SAT 98; BMI 23.6
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
== END 2024-07-22 13:39 | disposition home or self-care (01) ==
LOC: HO.PMC 12:48
PROVIDERS: PCP Internal Medicine Geriatric Medicine; Visit Provider Nurse Practitioner Family
DX: M47.812 Spondylosis without myelopathy or radiculopathy, cervical region (principal); M65.90 Unspecified synovitis and tenosynovitis, unspecified site; M50.30 Other cervical disc degeneration, unspecified cervical region; G89.4 Chronic pain syndrome; M25.50 Pain in unspecified joint; M25.511 Pain in right shoulder; G44.86 Cervicogenic headache
CPT/HCPCS: 99214; G2211

== ENCOUNTER → 2024-07-22 12:47 | Outpatient (BNVA) | payer OTHER, SELFPAY | PROVIDERS: PCP Internal Medicine Geriatric Medicine; Visit Provider Nurse Practitioner Family | DX: M47.812 Spondylosis without myelopathy or radiculopathy, cervical region (principal); M65.90 Unspecified synovitis and tenosynovitis, unspecified site; M50.30 Other cervical disc degeneration, unspecified cervical region; M25.50 Pain in unspecified joint; M25.511 Pain in right shoulder; G44.86 Cervicogenic headache; G89.4 Chronic pain syndrome | CPT/HCPCS: 99212 ==

== ENCOUNTER 2024-07-28 11:07 | Outpatient (AMB) | payer OTHER, SELFPAY ==
--- NOTE | 2024-07-28 11:24 | A.OFFVIS_ITS ---
Intake Visit Reasons: New Pt - Right Shoulder Pain Intake Note: Kaitlin is a 69 year old left hand dominant female who presents today as a new patient with complaints of right shoulder pain. Hx of Right RTC Repair. Patient reports that her right shoulder pain is increasing and has limited ROM Allergies ciprofloxacin [From Cipro] Allergy (Intermediate, Verified 07/22/24 12:58) HIVES/ITCHING oxycodone [Percocet] Allergy (Intermediate, Verified 07/22/24 12:58) Hives Penicillins Allergy (Intermediate, Verified 07/22/24 12:58) HIVES/ITCHING simvastatin [Simvastatin] Allergy (Intermediate, Verified 07/22/24 12:58) HIVES/ITCHINIG vancomycin [Vancomycin] Allergy (Intermediate, Verified 07/22/24 12:58) HIVES/ITCHING latex Allergy (Mild, Verified 07/22/24 12:58) Rash milnacipran [From Savella] Allergy (Mild, Verified 07/22/24 12:58) Hives Sulfa (Sulfonamide Antibiotics) Allergy (Mild, Verified 07/22/24 12:58) Shortness of Breath dupilumab [From Dupixent Pen] Adverse Reaction (Intermediate, Verified 07/22/24 12:58) neuropathy HPI HPI New Pt - Right Shoulder Pain: Details: Kaitlin is a 69 year old left hand dominant female who presents today as a new patient with complaints of right shoulder pain. Hx of Right RTC Repair. Patient reports that her right shoulder pain is increasing and has limited ROM. I have seen her in the past and she had a screw pull out in her right shoulder and I recommended surgery 3 years ago but she did not pursue that at that time. She returns today after having been seen for quite some time and pain management. She describes several things 1 of which is neck pain and the other which is shoulder pain. She states she has pain at night and pain with overhead activity. MRI from 3 years ago shows screw pullout and suggestion of some degenerative tearing around the repair site. She has done physical therapy and had injections and continues to be very uncomfortable. [facility] Medical History Asthma-COPD overlap syndrome Asthma exacerbation Abnormal electrocardiogram [ECG] [EKG] Chest pain Bleeding hemorrhoids Eczema VERA positive DVT (deep venous thrombosis) Tachycardia Dyspnea Sinusitis Rash URI (upper respiratory infection) History of anesthesia problem Osteoarthritis Fibromyalgia GERD (gastroesophageal reflux disease) Cervicalgia Depression History of vertigo Varicose vein of leg Chronic pain of left knee Allergic rhinitis Anxiety Asthma Migraine Surgical History History of esophagogastroduodenoscopy (EGD) History of repair of right rotator cuff Hx of bilateral breast reduction surgery Hx of hemorrhoidectomy H/O varicose vein ligation and stripping Hx of colonoscopy Hx of hysterectomy Hx of appendectomy Hx laparoscopic cholecystectomy Status post right rotator cuff repair Family History Father No problems noted. Mother Family history of high blood pressure Dementia Social History Household Members: None Housing: Apartment Do you presently have visiting nurse or other home services: No Alcohol intake: former Comment: pt uses cane as baseline Patient Tobacco Use Status: Never used Tobacco Second Hand Smoke Exposure: No Advance Directives Date on File: 04/03/18 service: No Current occupational status: unemployed Current occupation: Left Handed Physical Exam Extrem Other: On exam the most notable finding is the sensitivity to palpation along bilateral trapezius muscles. In her right shoulder she has 30 degrees of external rotation. 4/5 empty can and positive Neil and Neer. Assessment & Plan Assessment & Plan (1) Shoulder pain with history of repair of rotator cuff: Code(s): M25.519 - Pain in unspecified shoulder; Z98.890 - Other specified postprocedural states Category: Medical Plan: This is a 69-year-old woman with proximally 5 year history of right rotator cuff repair. She was seen in 2020 and 1 of the screws was seen to have cut out. At that time I had recommended repeat surgery but she did not follow up. She presents now for years later with ongoing pain. I recommend a MRI to assess. She is claustrophobic so an open MRI will be obtained. After that is done she will return to see me. Orders: Orders MR shoulder RT wo con Today M25.519 - Pain in unspecified shoulder, Z98.890 - Other specified postprocedural states Coding Level of Care Code Est Pt Level 4 (16672) Diagnoses Shoulder pain with history of repair of rotator cuff M25.519; Z98.895
--- OUTSIDE RECORDS SUMMARY | 2024-07-28 11:35 | XMS_ITS | Encounter Summary ---
Author Organization [facility] Address [address] [facility] [address] [place] [address] Phone Care Team Providers Care Law Firm Partner Name Role Phone Name, Jay PHAM Primary Care Provider Unavailabl e Reason for Visit * Reason Comments Med Refill Encounter Details Date Type Department Care Team (Late Contact Info) Description 09/25/2022 Refill [facility] [address] [address] [facility] [address] [place] [address] Amandeep Stuart MD Social History [...] Visit [facility] [address] [place] [phone] Ander Sen MD [address] [facility] [address] [place] [phone] documented as of this encounter Visit Diagnoses Not on filedocumented in this encounter Care Teams Law Firm Partner Relationship Specialty Start Date End Date Name, MD Jay [address] [place] [address] PCP - General Internal Medicine 12/07/20 documented as of this encounter
== END 2024-07-28 12:22 | disposition home or self-care (01) ==
PROVIDERS: PCP Internal Medicine Geriatric Medicine; Visit Provider Orthopaedic Surgery
DX: M25.511 Pain in right shoulder (principal); Z98.890 Other specified postprocedural states
CPT/HCPCS: 99214

== ENCOUNTER → 2024-07-28 11:07 | Outpatient (BNVA) | payer OTHER, SELFPAY | PROVIDERS: PCP Internal Medicine Geriatric Medicine; Visit Provider Orthopaedic Surgery | DX: M25.519 Pain in unspecified shoulder (principal); Z98.890 Other specified postprocedural states | CPT/HCPCS: 20610; 99212; J0665; J1100; J2003 ==

== ENCOUNTER 2024-08-05 10:58 | Outpatient (AMB) | payer OTHER, SELFPAY ==
[2024-08-05 11:05] VITALS: BP 134/70; PULSE 87; O2SAT 96; BMI 24.4
--- NOTE | 2024-08-05 11:05 | MHC.OFFVIS ---
Vital Signs 08/05/24 11:05 Height 5 ft 3 in Weight 137 lb 12.623 oz BMI 24.4 BP 134/70 Blood Pressure Location Lt brachial Position Sitting Pulse 87 Pulse Source Pulse Oximeter Pulse Oximetry (%) 96 Oxygen Delivery Method Room Air Intake Visit Reasons: COPD Accompanied by: Self / Same As Patient Allergies ciprofloxacin [From Cipro] Allergy (Intermediate, Verified 08/05/24 11:12) HIVES/ITCHING oxycodone [Percocet] Allergy (Intermediate, Verified 08/05/24 11:12) Hives Penicillins Allergy (Intermediate, Verified 08/05/24 11:12) HIVES/ITCHING simvastatin [Simvastatin] Allergy (Intermediate, Verified 08/05/24 11:12) HIVES/ITCHINIG vancomycin [Vancomycin] Allergy (Intermediate, Verified 08/05/24 11:12) HIVES/ITCHING latex Allergy (Mild, Verified 08/05/24 11:12) Rash milnacipran [From Savella] Allergy (Mild, Verified 08/05/24 11:12) Hives Sulfa (Sulfonamide Antibiotics) Allergy (Mild, Verified 08/05/24 11:12) Shortness of Breath dupilumab [From Dupixent Pen] Adverse Reaction (Intermediate, Verified 08/05/24 11:12) neuropathy HPI Comments Details: The patient is a 69-year-old woman known allergic rhinitis and severe persistent asthma. She has been using her respiratory therapy. Still having significant shortness of breath because she has been exposed to significant smoke and fumes from her upstairs neighbor. She is very the 94 hold also lives in the same environment and also has been getting worsening respiratory symptoms. She will talk to the now alert and also I gave her a number of an asthma association that may be able to help her. Continues to have wheezing at times. She is waking up more often. Also having more coughing. She has been more congested. She has been getting allergy medications from diamond finishing supervisor. He will bring maximizing her respiratory therapy. She has tried certain biologic therapies with her diamond finishing supervisor. She had a bad reaction to Xolair I am not sure if she try Dupixent or interlukin 5 inhibitors yet. The patient has severe persistent asthma with significant wheezing right now on examination. She has been using the Dupixent injections every 2 weeks with very good effect. She continues on respiratory therapy. She has not required any prednisone which is been great. It also has been helping her chronic rhinitis. In the meantime she is dealing with issues with abdominal pain and reflux. She was evaluated by GI and appears to be have some peptic ulcer disease and H pylori. Therefore she was started on therapy although difficult for her to tolerate. Now she is planned to have an endoscopy which should be reassuring. In the meantime she needs to continue with the reflux diet and she also understands the acid reflux can exacerbate her respiratory issues. 03/07/2022 the patient is here for pulmonary follow-up visit. She continues to have her significant asthma symptoms and also nasal congestion. Moderate severity. She continues to be on chronic prednisone because of the severity of her symptoms. She also continues with respiratory therapy. Based on her steroid dependent asthma the patient it is more agreeable to considering a different biologic regimen. Again she already tried Xolair in Dupixent. Although Dupixent was helpful initially the patient then became symptomatic with significant neuropathy and had to stop it. The patient is agreeable to looking into starting Tezspire. at this point the patient is having significant wheezing on examination and will require additional prednisone. Will also start the process for the biologic regimen. 05/01/2023 the patient is here for pulmonary follow-up visit. Overall the patient has been doing well from a respiratory status. Although typically her asthma worsened springtime. The patient will be maximize her respiratory therapy by increasing the Spiriva to the maximum dose. She is already using the Dulera twice a day. She also requires her rescue inhaler about twice a week. The patient did have a full cardiac workup which was reassuring. She has not had a chest x-ray now in couple years. Will go ahead and repeat her chest x-ray at this time. If his abnormal call her and will follow-up with any additional testing in the case. We did talk about biologics. The patient still is reluctant to use any biologics specially with a bad reaction to the Dupixent and also has had bad reactions to other medications. Therefore will continue to monitor her closely during the springtime if she has any issues she will call the office for an earlier assessment. Otherwise will follow-up in 4-6 months. 07/06/2023 the patient is here for a pulmonary sick visit. She has been sick now for about 2 days. She started developing chest tightness pressure and chest congestion. Denies any fevers or chills. She has been using her nebulizer home with only partial resolution of her wheezing and chest tightness. She is very concerned. Again, we talked about biologic therapy. She is tried some in the past and had adverse effects and she really does not want to try anything else. Although I do believe Tezspire will be a very good option for her. Right now she has significant wheezing. I did give her 2 treatments with DuoNeb. In addition to that the patient will go home and greens picker some prednisone and start a course of azithromycin. If the patient is no better she can always call to reassess. In the meantime we did review her recent CT scan of the chest. Her CT scan is reassuring she does have some pleural thickening areas and some areas of fibrosis but minimal. The patient does have mosaic pattern consistent with her asthma. 11/06/2023 the patient is here for a pulmonary follow-up visit. Overall the patient is still having issues with her asthma. She has frequent flare-ups. Now going to the fall she has additional allergies. She had responded well to Dupixent as far as her breathing but did result in adverse effects. She is concerned about any other biologic therapy. She is not willing to start any biologic therapies at this time. Therefore, give her additional prednisone for her to take. She is having increasing chest tightness right now. Moderate severity with wheezing. She continues use her respiratory therapy and also has a nebulizer. She is willing to start Daliresp as a way to decrease her chronic bronchitis and chronic obstructive pulmonary disease exacerbations. Will start her on the 250 mcg dose and then increase as tolerated to the therapeutic dose. 02/10/2024 the patient is here for a pulmonary follow-up visit. Recently she was hospitalized with an asthma exacerbation. She required additional prednisone. Now she is off the prednisone. She is using the Dulera. She has not been using the Spiriva. She does have severe persistent asthma. She also has significant allergies. Unfortunately she has had reactions to the biologics. Although I do believe has part be a very good option for her. She is reluctant to use it at this time. Although, I believe will be a good option for her. She is going to consider it for now. Will going to maximize her respiratory therapy by adding Spiriva. Right now her breathing is stable so therefore will hold off in an additional prednisone. She does have osteopenia on her bone scan so I explained to the importance for her to stay away from prednisone as much as possible. She also did try the Daliresp unfortunately she had an adverse reaction feeling agitated and restless. Therefore will hold off on that at this time. 04/05/2024 the patient is here for a pulmonary follow-up visit. The patient overall still the same. She still complains of wheezing complains of chest tightness. Qlag-no-huvelyts severity. She has been off the prednisone which is reassuring. She continues on her inhalers. I believe that she may have some and he does at home and she is not quite clear which ones they are. She possibly is taking Dulera and maybe taking Bevespi. So I did provide her with a map of the different inhalers. I do believe that she will do better with a combination inhaler such as Breztri . Therefore will send Breztri to the pharmacy. In the meantime she is not interested in any biologic therapy for her diamond finishing supervisor. She does have an diamond finishing supervisor and we did provide her with an allergy referral but she has not heard. I did give her the information she can call the office. She continues to take Faye once or twice a day and continues with a nasal therapies sprays. No recent imaging studies to review. last CXR from 12/2023 was normal. 08/05/2024 the patient is here for pulmonary follow-up visit. She is struggling with allergies in her asthma. She has been on prednisone now multiple times for the month. Springtime is usually the worst season for her. She already has been on multiple biologics and she is reluctant to try others because of adverse effects. But at this point the dose of prednisone is too much. She is willing to start tezspire. I do believe test probably be a very good option for her. She has significant allergic asthma. In the meantime I will send her additional prednisone in order for her to improve her respiratory symptoms And wheezing. She is also having significant neck discomfort. She is working closely with pain management. She can not tolerate Motrin. She could try small dose of Celebrex and see if this provides some relief specially since his affecting her overall quality of life. If it does work for her she can talk to her primary care doctor about continue a Jolly 2 inhibitor if that is a reasonable option for her. Will plan to follow-up in 3 months. I am hopeful that we can get the Kirsten approve and have her start therapy soon. [facility] Medical History Asthma-COPD overlap syndrome Asthma exacerbation Abnormal electrocardiogram [ECG] [EKG] Chest pain Bleeding hemorrhoids Eczema VERA positive DVT (deep venous thrombosis) Tachycardia Dyspnea Sinusitis Rash URI (upper respiratory infection) History of anesthesia problem Osteoarthritis Fibromyalgia GERD (gastroesophageal reflux disease) Cervicalgia Depression History of vertigo Varicose vein of leg Chronic pain of left knee Allergic rhinitis Anxiety Asthma Migraine Surgical History History of esophagogastroduodenoscopy (EGD) History of repair of right rotator cuff Hx of bilateral breast reduction surgery Hx of hemorrhoidectomy H/O varicose vein ligation and stripping Hx of colonoscopy Hx of hysterectomy Hx of appendectomy Hx laparoscopic cholecystectomy Status post right rotator cuff repair Family History Father No problems noted. Mother Family history of high blood pressure Dementia Social History Household Members: None Housing: Apartment Do you presently have visiting nurse or other home services: No Alcohol intake: former Comment: pt uses cane as baseline Patient Tobacco Use Status: Never used Tobacco Second Hand Smoke Exposure: No Advance Directives Date on File: 04/03/18 service: No Current occupational status: unemployed Current occupation: Left Handed Review of Systems Const Reports fatigue, Reports headache(s), Denies night sweats and Reports weight loss ENT Denies change in voice, Reports headache(s), Denies lip swelling, Denies mouth pain, Reports nasal congestion, Reports nasal discharge, Reports nasal obstruction, Reports neck pain, Reports post nasal drip and Denies tongue swelling Card Denies chest pain, Denies dyspnea and Reports dyspnea on exertion Resp Reports change in phlegm color, Reports chest congestion, Reports cough, Denies dyspnea, Reports dyspnea on exertion and Reports wheezing GI Denies abdominal pain, Denies diarrhea and Denies loose stools Musc Reports back pain, Reports myalgias and Reports neck pain Neuro Denies Neuro-related abnormal movements, Denies burning sensations, Reports headache(s) and Denies paresthesias Psych Denies no additional complaints Endo Reports fatigue Shabbir/Lymph Denies easy bleeding and Denies lymphadenopathy Aller/Immun Denies lip swelling, Denies tongue swelling and Reports wheezing Physical Exam Vital Signs: Last Vital Signs Pulse 87 08/05/24 11:05 BP 134/70 08/05/24 11:05 Pulse Ox 96 08/05/24 11:05 Oxygen Delivery Method Room Air 08/05/24 11:05 BMI result Body Mass Index 24.4 Const General: cooperative, healthy appearing and comfortable Orientation/consciousness: oriented to person, oriented to place and oriented to time Neck Carotids: no bruits Chest Chest palpation & inspection: normal inspection of the chest and normal palpation of entire chest wall Resp Effort & Inspection: normal respiratory effort and prolonged expiratory phase Auscultation: wheezes and diminished lung sounds Cardio Rate: regular rate Heart sounds: S1 normal heart sound present and S2 normal heart sound present Peripheral pulses: Peripheral pulses 2+ throughout GI Inspection: Yes normal to inspection Skin Other: +2 edema, large rope-like varicosities greater than 3 mm CEAP Classification C4 - skin color changes Ep - Etiology Primary As - superficial veins P - reflux General skin exam: dry skin Neuro General: oriented to person, oriented to place and oriented to time Extrem Right lower extremity: full ROM, normal capillary refill and edema Left lower extremity: full ROM, normal capillary refill and edema Psych Mental Status: mental status grossly normal Assessment & Plan Assessment & Plan (1) Asthma: Code(s): J45.909 - Unspecified asthma, uncomplicated Category: Medical Qualifiers: Asthma complication type: with acute exacerbation Asthma persistence: persistent Asthma severity: severe Qualified Code(s): J45.51 - Severe persistent asthma with (acute) exacerbation (2) Allergic reaction: Code(s): T78.40XA - Allergy, unspecified, initial encounter Category: Medical Qualifiers: Encounter type: initial encounter Qualified Code(s): T78.40XA - Allergy, unspecified, initial encounter (3) GERD (gastroesophageal reflux disease): Code(s): K21.9 - Gastro-esophageal reflux disease without esophagitis Category: Medical Qualifiers: Esophagitis bleeding: without hemorrhage Esophagitis presence: with esophagitis Qualified Code(s): K21.00 - Gastro-esophageal reflux disease with esophagitis, without bleeding (4) Eczema: Code(s): L30.9 - Dermatitis, unspecified Category: Medical Qualifiers: Eczema type: intrinsic Qualified Code(s): L20.84 - Intrinsic (allergic) eczema (5) Asthma-COPD overlap syndrome: Code(s): J44.89 - Other specified chronic obstructive pulmonary disease Category: Medical Plan Breztri BRENDA as needed Continue nebulizer therapy Reflux diet Nasal rinsing start Celebrex trial Prednisone taper if worsens Start tezspire Follow-up 3-4 months Medications: New celecoxib (Celebrex) 50 mg PO BID 60 caps 0RF 30 days Refilled prednisone PO daily; Take 6 tabs daily x 3 days, then 5 tabs x 3 days, then 4 tabs x 3 days, then 3 tabs x 3 days, then 2 tabs daily x 3 days, then 1 tab x 3 days to complete. 63 tabs 0RF 18 days Coding Level of Care Code Est Pt Level 4 (47726) Complex EM visit Add On G2211 Diagnoses Severe persistent asthma with acute exacerbation J45.51 Asthma complication type: with acute exacerbation Asthma persistence: persistent Asthma severity: severe Allergic reaction, initial encounter T78.40XA Encounter type: initial encounter Gastroesophageal reflux disease with esophagitis without hemorrhage K21.00 Esophagitis bleeding: without hemorrhage Esophagitis presence: with esophagitis Intrinsic eczema L20.84 Eczema type: intrinsic Asthma-COPD overlap syndrome J44.89 Time Spent (min) 17
--- OUTSIDE RECORDS SUMMARY | 2024-08-05 11:52 | XMS_ITS | Encounter Summary ---
Author Organization [facility] Address [address] [facility] [address] [place] [address] Phone Care Team Providers Care Freight Dispatcher Name Role Phone Name, Jay PHAM Primary Care Provider Unavailabl e Reason for Visit * Reason Comments Med Refill Encounter Details Date Type Department Care Team (Late Contact Info) Description 09/25/2022 Refill [facility] [address] [facility] [address] [place] [address] Amandeep Stuart MD Social History [...] Visit [facility] [address] [place] [phone] Ander Sen MD [address] [facility] [address] [place] [phone] documented as of this encounter Visit Diagnoses Not on filedocumented in this encounter Care Teams Freight Dispatcher Relationship Specialty Start Date End Date Name, MD Jay [address] [place] [address] PCP - General Internal Medicine 12/07/20 documented as of this encounter
== END 2024-08-05 11:40 | disposition home or self-care (01) ==
LOC: HO.HPS 10:58
PROVIDERS: PCP Internal Medicine Geriatric Medicine; Visit Provider Hospitalist
DX: J45.51 Severe persistent asthma with (acute) exacerbation (principal); T78.40XA Allergy, unspecified, initial encounter; K21.00 Gastro-esophageal reflux disease with esophagitis, without bleeding; L20.84 Intrinsic (allergic) eczema; J44.89 Other specified chronic obstructive pulmonary disease
CPT/HCPCS: 99214; G2211

== ENCOUNTER → 2024-08-05 10:58 | Outpatient (BNVA) | payer OTHER, SELFPAY | PROVIDERS: PCP Internal Medicine Geriatric Medicine; Visit Provider Hospitalist | DX: J45.51 Severe persistent asthma with (acute) exacerbation (principal); J44.89 Other specified chronic obstructive pulmonary disease; R07.9 Chest pain, unspecified; R94.31 Abnormal electrocardiogram [ECG] [EKG]; T78.40XA Allergy, unspecified, initial encounter; K21.00 Gastro-esophageal reflux disease with esophagitis, without bleeding; L20.84 Intrinsic (allergic) eczema | CPT/HCPCS: 99212 ==

== ENCOUNTER 2024-08-29 12:25 | Outpatient (AMB) | payer OTHER, SELFPAY ==
--- NOTE | 2024-08-29 12:31 | A.OFFVIS_ITS ---
Vital Signs 08/29/24 12:40 Height 5 ft 3 in Weight 136 lb BMI 24.1 BP 100/64 Blood Pressure Location Lt brachial Position Sitting Pulse 101 H Pulse Oximetry (%) 97 Oxygen Delivery Method Room Air Intake Visit Reasons: 4 month follow up Intake Note: Patient follow up for Chest tightness Patient cc: abdominal pain, nauseas, acid reflux and pain with BM. Denies any other GI issues. Epoxy Specialist Required: No Accompanied by: Self / Same As Patient Allergies ciprofloxacin (From Cipro) Allergy (Intermediate, Verified 08/29/24 12:32) HIVES/ITCHING oxycodone (Percocet) Allergy (Intermediate, Verified 08/29/24 12:32) Hives Penicillins Allergy (Intermediate, Verified 08/29/24 12:32) HIVES/ITCHING simvastatin (Simvastatin) Allergy (Intermediate, Verified 08/29/24 12:32) HIVES/ITCHINIG vancomycin (Vancomycin) Allergy (Intermediate, Verified 08/29/24 12:32) HIVES/ITCHING latex Allergy (Mild, Verified 08/29/24 12:32) Rash milnacipran (From Savella) Allergy (Mild, Verified 08/29/24 12:32) Hives Sulfa (Sulfonamide Antibiotics) Allergy (Mild, Verified 08/29/24 12:32) Shortness of Breath dupilumab (From Dupixent Pen) Adverse Reaction (Intermediate, Verified 08/29/24 12:32) neuropathy HPI HPI 4 month follow up: Details: 69 yr old f w hx of cholecystectomy, here for f/u RECAP__initially saw [facility]--08/2019 She says she has a bacteria in her stomach ? h pylori. Significant bloating she could not eat. She had taken clarithromycin and Flagyl for 3- 4 days and began with nausea and vomiting. She finally had gone to the ED, Antibiotoic therapy discontinued despite GB taken out 1 yr ago she has simialr sx Her appetite is not great however she is not had any further vomiting, however continues with intermittent nausea, bloating and reflux though she discontinued omeprazole as well. She has very unstable BP- always in the ED. She is allergic to every antibiotic as well as anesthesia. Her daughter says that she needs to have monitoring whenever she is given any of the above. Her daughter was extremely concerned taking medications She did have a an abdominal ultrasound 08/08/19--fatty liver, otherwise ok LABS 08/2019--nml BMP, LFT< CBC, microcytosis EGD/colonoscopy--01/2020---patchy erythema, nml colon, bx with h pylori she was given quadruple therapy for h pylori subsequent H pylori breath test 04/2020---Negative, repeat H pylori 10/2021-- negATIVE GES--normal I also gave her linaclotide for constipation thought to be due to her medications she had BENITES and manometry at [facility] 04/2021--pos Demeeester, normal manometry IMAGING: CT 12/2019--- mild constipation, no acute findings US 2021- normal apart from mild aortic atherosclerosis US 10/2022--- aortic plaque seen, otherwise no acute findings She did have stool pos for norvovirus 09/2022 she also had fecal fat but nml panc elastase MRCP-- 08/23-- no filling defects in CBD, no masses CTe: 11/11/23- constipation, atherosclerosis, osteopenia, INTERIM: issues with the humidity allergies acting out she has nausea mid abdominal pain can be worse with food using asthma meds, for wheezing EXAM: GENERAL: The patient is well developed and nontoxic. VITAL SIGNS:see workflow HEENT: Nonicteric sclerae, PERRLA, EOMI. Oropharynx clear. Moist mucous membranes. Conjunctivae appear well perfused. No thyroid mass. CHEST: Chest wall is nontender. HEART: Regular rate and rhythm without murmurs. LUNGS: b/l wheeze and tight chest ABDOMEN: Soft, positive bowel sounds, tender mid abdomen, no organomegaly. SKIN: No rash, no excessive bruising, petechiae, or purpura. NEUROLOGIC: Cranial nerves II-XII intact without motor/sensory deficit. psych--nml Assessment & Plan 1/Mid abdominal pain, undifferentiated PLAN: 1/ EGD for further assessment--if neg then refer pain max --had to hold due to her astham and allergies, try to time whne her breathing is good 2/ US abdomen 3/ stop omeprazole and try esomeprazole instead -GERD maybe palying a role in alma of her breathing issues [facility] Medical History Asthma-COPD overlap syndrome Asthma exacerbation Abnormal electrocardiogram [ECG] [EKG] Chest pain Bleeding hemorrhoids Eczema VERA positive DVT (deep venous thrombosis) Tachycardia Dyspnea Sinusitis Rash URI (upper respiratory infection) History of anesthesia problem Osteoarthritis Fibromyalgia GERD (gastroesophageal reflux disease) Cervicalgia Depression History of vertigo Varicose vein of leg Chronic pain of left knee Allergic rhinitis Anxiety Asthma Migraine Surgical History History of esophagogastroduodenoscopy (EGD) History of repair of right rotator cuff Hx of bilateral breast reduction surgery Hx of hemorrhoidectomy H/O varicose vein ligation and stripping Hx of colonoscopy Hx of hysterectomy Hx of appendectomy Hx laparoscopic cholecystectomy Status post right rotator cuff repair Family History Father No problems noted. Mother Family history of high blood pressure Dementia Social History Household Members: None Housing: Apartment Do you presently have visiting nurse or other home services: No Alcohol intake: former Comment: pt uses cane as baseline Patient Tobacco Use Status: Never used Tobacco Second Hand Smoke Exposure: No Advance Directives Date on File: 04/03/18 service: No Current occupational status: unemployed Current occupation: Left Handed Physical Exam Vital Signs: Last Vital Signs Pulse 101 H 08/29/24 12:40 BP 100/64 08/29/24 12:40 Pulse Ox 97 08/29/24 12:40 Oxygen Delivery Method Room Air 08/29/24 12:40 BMI result Body Mass Index 24.1 Assessment & Plan Assessment & Plan (1) Epigastric abdominal pain: Code(s): R10.13 - Epigastric pain Category: Medical Plan: as above Orders: Orders US abdomen comp w elastography Today R10.13 - Epigastric pain Medications: New esomeprazole magnesium 40 mg PO DAILY 90 caps 1RF Coding Level of Care Code Est Pt Level 3 (91757) Diagnoses Epigastric abdominal pain R10.13
[2024-08-29 12:40] VITALS: BP 100/64; PULSE 101; O2SAT 97; BMI 24.1
--- OUTSIDE RECORDS SUMMARY | 2024-08-29 12:55 | XMS_ITS | Patient Health Record ---
Author Organization [facility] Address [address] [place] [address] Care Team Providers Care Business Performance Advisor Name Role Phone Jered Sutton [phone] Reason For Referral No Information Plan Of Treatment No Information
--- OUTSIDE RECORDS SUMMARY | 2024-08-29 12:55 | XMS_ITS | Encounter Summary ---
Author Organization [employer] Address [address] [facility] [address] [place] [address] Care Team Providers Care Victim Witness Administrator Name Role Phone Name, Jay PHAM Primary Care Provider [phone] Encounter Details Date Type Department Care Team (Latest Contact Info) Description 07/18/2024 Results Follow-Up [facility] MEDICINE [address] [place], [place] [phone] Name, MD Jay [address] [place] [address] CBC auto differential, Comprehensive Metabolic Panel, High Sensitivity Troponin I, Magnesium Social History Tobacco Use Types Packs/Day Years [...] Care Team (Late st Contact Info) Description 11/04/2024 1:00 PM EDT Office Visit [facility] MEDICINE [address] [place] [phone] NameJay MD [address] [place] [address] documented as of this encounter Visit Diagnoses Not on filedocumented in this encounter Additional Health Concerns Assessment Noted Time PHQ-9 Depression Total Score: 10 025 1:13 PM EST documented as of this encounter Care Teams Victim Witness Administrator Relationship Specialty Start Date End Date NameJay MD [address] [place] [phone] PCP - General Family Medicine 03/02/18 documented as of this encounter
--- OUTSIDE RECORDS SUMMARY | 2024-08-29 12:55 | XMS_ITS | Encounter Summary ---
Author Organization [facility] Address [address] [facility] [address] [place] [address] Phone Care Team Providers Care Corporate Law Specialist Name Role Phone Name, Jay PHAM Primary Care Provider Unavailabl e Reason for Visit * Reason Comments Med Refill Encounter Details Date Type Department Care Team (Late Contact Info) Description 09/25/2022 Refill [facility] [address] [facility] [facility] [address] [place] [address] Amandeep Stuart MD Social History [...] [facility] [address] [place] [phone] Ander Sen MD [address] [facility] [address] [place] [phone] documented as of this encounter Visit Diagnoses Not on filedocumented in this encounter Care Teams Corporate Law Specialist Relationship Specialty Start Date End Date Name, MD Jay [address] [place] [address] PCP - General Internal Medicine 12/07/20 documented as of this encounter
== END 2024-08-29 13:09 | disposition home or self-care (01) ==
LOC: HO.HGI 12:26
PROVIDERS: PCP Internal Medicine Geriatric Medicine; Visit Provider Internal Medicine Gastroenterology
DX: R10.13 Epigastric pain (principal)
CPT/HCPCS: 99213

== ENCOUNTER → 2024-08-29 12:25 | Outpatient (BNVA) | payer OTHER, SELFPAY | PROVIDERS: PCP Internal Medicine Geriatric Medicine; Visit Provider Internal Medicine Gastroenterology | DX: R10.13 Epigastric pain (principal) | CPT/HCPCS: 99212 ==

== ENCOUNTER 2024-10-03 14:09 | Outpatient (AMB) | payer OTHER, SELFPAY ==
--- NOTE | 2024-10-03 14:12 | MHC.OFFVIS ---
Vital Signs 10/03/24 14:13 Height 5 ft 3 in Weight 136 lb BMI 24.1 Handedness Left Intake Visit Reasons: OV - Right Shoulder MRI Review Intake Note: Kaitlin is a 69 year old left hand dominant female who presents today for an MRI review of her Right Shoulder. Hx of a Right Rotator cuff repair about 6 years ago - in 2020 we found that one of the screws was seen to have cut out and surgery was recommended but patient did not follow through. At time of visit patient reported that her blood pressure felt high, her BP was recorded at 177/108. I advised that we will re-check her blood pressure at the end of her visit. Allergies ciprofloxacin (From Cipro) Allergy (Intermediate, Verified 10/03/24 14:22) HIVES/ITCHING oxycodone (Percocet) Allergy (Intermediate, Verified 10/03/24 14:22) Hives Penicillins Allergy (Intermediate, Verified 10/03/24 14:22) HIVES/ITCHING simvastatin (Simvastatin) Allergy (Intermediate, Verified 10/03/24 14:22) HIVES/ITCHINIG vancomycin (Vancomycin) Allergy (Intermediate, Verified 10/03/24 14:22) HIVES/ITCHING latex Allergy (Mild, Verified 10/03/24 14:22) Rash milnacipran (From Savella) Allergy (Mild, Verified 10/03/24 14:22) Hives Sulfa (Sulfonamide Antibiotics) Allergy (Mild, Verified 10/03/24 14:22) Shortness of Breath dupilumab (From Dupixent Pen) Adverse Reaction (Intermediate, Verified 10/03/24 14:22) neuropathy HPI HPI OV - Right Shoulder MRI Review: Details: Kaitlin is a 69 year old left hand dominant female who presents today for an MRI review of her Right Shoulder. Hx of a Right Rotator cuff repair about 6 years ago - in 2020 we found that one of the screws was seen to have cut out and surgery was recommended but patient did not follow . She is still hesitant of surgery. In fact she states that her left knee is much more bothersome than her right shoulder. [facility] Medical History Asthma-COPD overlap syndrome Asthma exacerbation Abnormal electrocardiogram [ECG] [EKG] Chest pain Bleeding hemorrhoids Eczema VERA positive DVT (deep venous thrombosis) Tachycardia Dyspnea Sinusitis Rash URI (upper respiratory infection) History of anesthesia problem Osteoarthritis Fibromyalgia GERD (gastroesophageal reflux disease) Cervicalgia Depression History of vertigo Varicose vein of leg Chronic pain of left knee Allergic rhinitis Anxiety Asthma Migraine Surgical History History of esophagogastroduodenoscopy (EGD) History of repair of right rotator cuff Hx of bilateral breast reduction surgery Hx of hemorrhoidectomy H/O varicose vein ligation and stripping Hx of colonoscopy Hx of hysterectomy Hx of appendectomy Hx laparoscopic cholecystectomy Status post right rotator cuff repair Family History Father No problems noted. Mother Family history of high blood pressure Dementia Social History Household Members: None Housing: Apartment Do you presently have visiting nurse or other home services: No Alcohol intake: former Comment: pt uses cane as baseline Patient Tobacco Use Status: Never used Tobacco Second Hand Smoke Exposure: No Advance Directives Date on File: 04/03/18 service: No Current occupational status: unemployed Current occupation: Left Handed Physical Exam Vital Signs: BMI result Body Mass Index 24.1 Extrem Other: On exam the most notable finding is the sensitivity to palpation along bilateral trapezius muscles. In her right shoulder she has 30 degrees of external rotation. 4/5 empty can and positive Neil and Neer. Left knee with retropatellar tenderness to palpation in medial joint line tenderness to palpation mild valgus malalignment. Office Procedures Joint Inj/Aspir; Non-Pain Clin Joint Injection/Drain Details: Injected 1 mL of Decadron and 3 mL 1% lidocaine and 3 mL of 0.25% Marcaine. Site was prepped using aseptic technique. Patient tolerated the procedure well. Shoulders, Hips, Knees, Shoulder Injection Large joint : Right Shoulder Knee Large Joint Injection 21345: Left Knee Coding Procedure code (CPT) selection complete Assessment & Plan Assessment & Plan (1) Primary osteoarthritis of left knee: Code(s): M17.12 - Unilateral primary osteoarthritis, left knee Category: Medical Plan: I injected her left knee. He has had injections with benefit in the past. She is not really interested in surgery and happy to see her if her knee pain worsens. Injected without complication. (2) Rotator cuff arthropathy of right shoulder: Code(s): M12.811 - Other specific arthropathies, not elsewhere classified, right shoulder Category: Medical Plan: [age] years status post right shoulder rotator cuff repair. Complicated by screw cut out. She has not wanted surgery and today is no exception. I injected her right shoulder. She may follow up in 6 months. Coding Level of Care Code Est Pt Level 3 (80604) Complex EM visit Add On G2211 Diagnoses Primary osteoarthritis of left knee M17.12 Rotator cuff arthropathy of right shoulder M12.811 CPT Codes Shoulders, Hips, Knees, - Shoulder Injection Large joint 43148: Right Shoulder ([id number]) Shoulders, Hips, Knees, - Knee Large Joint Injection 89294: Left Knee ([id number])
[2024-10-03 14:13] VITALS: BMI 24.1
--- OUTSIDE RECORDS SUMMARY | 2024-10-03 14:18 | XMS_ITS | Clinical Summary ---
Author Organization [facility] Address [address] [place] [phone] Phone Care Team Providers Care General Accounting Clerk Name Role Phone Pcp, Unknown Primary Care Provider Unavailabl e Allergies Active Allergy Reactions Criticality Noted Date Comments Ciprofloxacin Rash Low 05/14/2009 Other reaction(s): Other (see comments) Latex 05/10/2021 Loracarbef 06/24/2010 Milnacipran Hives 05/10/2021 Oxycodone-Acetaminophen Itching,Rash Low 05/14/2009 Other reaction(s): Other (see comments) Penicillins Rash Low 09/29/2013 Other reaction(s): Other (see comments) Previously recorded as penicillamine Previously recorded as penicillamine Simvastatin Rash Low 05/14/2009 Other reaction(s): Other (see comments) Sulfa (Sulfonamide Antibiotics) 05/10/2021 Vancomycin Itching,Rash Low 05/14/2009 Other reaction(s): Other (see comments) Medications albuterol 90 mcg/actuation inhaler Inhale 2 puffs into the lungs every 6 (six) hours as needed. Active amitriptyline (ELAVIL) 50 MG tablet TAKE 1 TABLET BY MOUTH EVERYDAY AT BEDTIME 2 Active azelastine (ASTELIN) 137 mcg (0.1 %) nasal spray 2 Active budesonide (PULMICORT) 0.5 mg/2 mL nebulizer solution USE 2ML VIA NEBULIZER ONCE A DAY 2 Active fexofenadine (ANNETTA) 180 MG tablet TAKE 2 TABLETS BEFORE XOLAIR INJECTION BY MOUTH 2 Active FLUoxetine (PROZAC) 20 MG tablet Take 20 mg by mouth. Active hydroCHLOROthia zide (MICROZIDE) 12.5 mg capsule Take by mouth daily. 2 Active levalbuterol (XOPENEX) 1.25 mg/3 mL nebulizer solution INHALE 3 ML'S VIA NEBULIZER EVERY 6 HOURS FOR 30 DAYS NEEDED FOR SHORTNESS OF BREATH OR WHEEZING 2 Active LORazepam (ATIVAN) 1 MG tablet 2 Active mometasone-form oterol (DULERA) 200-5 mcg/actuation HFAA Inhale 2 puffs into the lungs. Active montelukast (SINGULAIR) 10 mg tablet Take 10 mg by mouth daily. 2 Active SUMAtriptan (IMITREX) 50 MG tablet Take 1 tablet by mouth. Active SPIRIVA RESPIMAT 1.25 mcg/actuation Mist INHALE 2 PUFFS BY MOUTH DAILY 2 Active valsartan (DIOVAN) 80 MG tablet Take 80 mg by mouth daily. 2 Active vancomycin (VANCOCIN) 125 MG capsule TAKE 4 CAPSULES BY MOUTH ONCE A DAY FOR 14 DAYS 2 Active Social History Tobacco Use Types Packs/Day Years Used Date Smoking Tobacco: Never Smokeless Tobacco: Never Alcohol Use Standard Drinks/Week Comments Not Currently 0 (1 standard drink = 0.6 oz pur e alcohol) Education Answer Date Recorded Are you interested in more education? Not on juanita e 06/28/2022 Are you concerned about learning? Not on file 06/28/2022 No 06/28/2022 No 06/28/2022 Digital Access Answer Date Recorded No 07/27/2022 No 07/27/2022 No 07/27/2022 Reliable internet access at home? Not on file 07/27/2022 Device with a working camera? Not on file Comments Unknown Sex and Gender Information Value Date Recorded Sex Assigned at Not on file Legal Sex Female 3:38 PM EST Gender Identity Not on file Sexual Orientation Not on file Last Filed Vital Signs Vital Sign Reading Time Taken Comments Blood Pressure - - Pulse - - Temperature - - Respiratory Rate - - Oxygen Saturation - - Inhaled Oxygen Concentration - - Weight 57.6 kg (127 lb) 05/10/2021 2:05 PM EST Height 160 cm (5' 3 ) 05/10/2021 2:05 PM EST Body Mass Index 22.5 05/10/2021 2:05 PM EST Plan of Treatment Health Maintenance Due Date Last Done Comments CREATININE LEVEL 1954 LIPID PANEL 1954 POTASSIUM LEVEL 1954 DEPRESSION SCREENING 1966 HEPATITIS C SCREENING 1972 MAMMOGRAM 1994 COLOGUARD 05/23/1999 COLONOSCOPY 05/23/1999 COLORECTAL CANCER SCREENING 05/23/1999 FIT TEST 05/23/1999 FOBT 05/23/1999 SIGMOIDOSCOPY 05/23/1999 VIRTUAL COLONOSCOPY 05/23/1999 ZOSTER VACCINES (1 of 2) 2004 PNEUMOCOCCAL VACCINES (50+ y ears) (2 of 2 - PCV) 03/04/2011 03/04/2010 Adult Td,Tdap Booster 05/01/2015 04/30/2005 OSTEOPOROSIS SCREENING INITI AL (ONE-TIME) 05/23/2019 COVID-19 VACCINE ( - 2023-2 5 season) 2023 RSV VACCINE (1 - 1-dose 75+ series) 2029 SMOKING STATUS SCREENING (On ce After 26 Yrs) Completed 05/10/2021 HEPATITIS A VACCINES Aged Out No long er eligible based on patient's age to complete this topic HIB VACCINES Aged Out No longer eligi ble based on patient's age to complete this topic MENINGOCOCCAL VACCINES (ACWY) Aged Out No longer eligible based on patient's age to complete this topic MENINGOCOCCAL VACCINES (B) Aged Out N o longer eligible based on patient's age to complete this topic Medical Devices Not on file Insurance [facility] CARE [employer]IANCE [employer] MEDICARE [place] [address] MEDICARE REPLACEMENT MEDICARE [place] [address] MEDICARE REPLACEMENT MEDICARE REPLACEMENT MEDICARE [place] [address] MEDICARE REPLACEMENT [facility] MEDICARE REPLACEMENT [facility] MEDICARE REPLACEMENT Care Teams General Accounting Clerk Relationship Specialty Start Date End Date Pcp, Unknown PCP - General 05/03/21 Additional Source Comments The information contained in this document represents components of the legal health record. It is not the complete legal health record.[facility]
--- OUTSIDE RECORDS SUMMARY | 2024-10-03 14:18 | XMS_ITS | Encounter Summary ---
Author Organization [facility] Address [address] [facility] [address] [place] [address] Phone Care Team Providers Care Sales Property Manager Name Role Phone Name, Jay PHAM Primary Care Provider Unavailabl e Reason for Visit * Reason Comments Med Refill Encounter Details Date Type Department Care Team (Late Contact Info) Description 09/25/2022 Refill [facility] [address] [facility] [address] [place] [address] Amandeep Stuart MD Social History [...] Care Team (Late st Contact Info) Description 11/10/2024 4:15 PM EDT Office Visit [facility] [address] [place] [phone] Ander Sen MD [address] [facility] [address] [place] [phone] documented as of this encounter Visit Diagnoses Not on filedocumented in this encounter Care Teams Sales Property Manager Relationship Specialty Start Date End Date Name, MD Jay [address] [place] [address] PCP - General Internal Medicine 12/07/20 documented as of this encounter
--- OUTSIDE RECORDS SUMMARY | 2024-10-03 14:18 | XMS_ITS | Patient Health Record ---
Author Organization [employer] Address [address] [place] [address] Care Team Providers Care Fire Safety Manager Name Role Phone Jered Sutton [phone] Reason For Referral No Information Plan Of Treatment No Information
--- OUTSIDE RECORDS SUMMARY | 2024-10-03 14:18 | XMS_ITS | Encounter Summary ---
Author Organization [facility] [facility] Address [address] [place] [address] 7 [place] [address] Care Team Providers Care Narrow Fabric Loom Fixer Name Role Phone Name, Jay PHAM Primary Care Provider [phone] Reason for Visit * Reason Comments Med Refill Encounter Details Date Type Department Care Team ([facility] Contact Info) Description 05/07/2022 Refill [facility] MEDICINE [address] [place] [address] [phone] Name, MD Jay [address] [place] [phone] Social History Tobacco Use Types Packs/Day Years [...] Upcoming Encounters Date Type Department Care Team ([facility] Contact Info) Description 11/04/2024 1:00 PM EDT Office Visit [facility] MEDICINE [address] [place] [address] [phone] Name, MD Jay [address] [place] [address] [phone] documented as of this encounter Visit Diagnoses Not on filedocumented in this encounter Care Teams Narrow Fabric Loom Fixer Relationship Specialty Start Date End Date Name, MD Jay [address] [place] [address] PCP - General Family Medicine 03/02/18 documented as of this encounter
== END 2024-10-03 14:51 | disposition home or self-care (01) ==
LOC: HO.HOS 14:09
PROVIDERS: PCP Internal Medicine Geriatric Medicine; Visit Provider Orthopaedic Surgery
DX: M17.12 Unilateral primary osteoarthritis, left knee (principal); M12.811 Other specific arthropathies, not elsewhere classified, right shoulder
CPT/HCPCS: 20610; 99213

== ENCOUNTER → 2024-10-03 14:09 | Outpatient (BNVA) | payer OTHER, SELFPAY | PROVIDERS: PCP Internal Medicine Geriatric Medicine; Visit Provider Orthopaedic Surgery | DX: M17.12 Unilateral primary osteoarthritis, left knee (principal); M12.811 Other specific arthropathies, not elsewhere classified, right shoulder | CPT/HCPCS: 20610; 99212; J0665; J1100; J2003 ==

== ENCOUNTER 2024-10-05 12:05 | Outpatient (REF) | payer OTHER, SELFPAY ==
--- OUTSIDE RECORDS SUMMARY | 2024-10-05 12:49 | XMS_ITS | Patient Health Record ---
Author Organization [employer] Address [address] [place] [address] Care Team Providers Care Marker Assembler Name Role Phone Jered Sutton [phone] Reason For Referral No Information Plan Of Treatment No Information
--- OUTSIDE RECORDS SUMMARY | 2024-10-05 12:49 | XMS_ITS | Clinical Summary ---
Author Organization [facility] Address [address] [place] [phone] Phone Care Team Providers Care Booster Assembler Name Role Phone Pcp, Unknown Primary Care [...] topic Medical Devices Not on file Insurance [facility] C[facility] ALLIANCE S[employer] MEDICARE [place] [address] [place] [address] MEDICARE REPLACEMENT MEDIC[place] [address] [place] [address] MEDICARE REPLACEMENT MEDICARE REPLACEMENT MEDIC[place] [address] [place] [address] MEDICARE REPLACEMENT [facility] MEDICARE REPLACEMENT [facility] MEDICARE REPLACEMENT Care Teams Booster Assembler Relationship Specialty Start Date End Date Pcp, Unknown PCP - General 05/03/21 Additional Source Comments The information contained in this document represents components of the legal health record. It is not the complete legal health record.[facility]
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
--- OUTSIDE RECORDS SUMMARY | 2024-10-05 12:49 | XMS_ITS | Encounter Summary ---
Author Organization [facility] Address [address] [place] [address] Care Team Providers Care Physician General Internal Medicine Name Role Phone Name, Jay PHAM Primary Care Provider Unavailabl e Name, Jay PHAM Primary Care Provider Unavailabl e Community, Pcp Primary Care Provider Unavailabl e Name, Jay PHAM Primary Care Provider Unavailabl e Encounter Details Date Type Department Care Team Description 10/17/2013 Primer Expeditor And Drier Report Medical Records [address] [place] [phone] Cezar Burks MD Social History Tobacco Use [...] on filedocumented in this encounter Care Teams Physician General Internal Medicine Relationship Specialty Start Date End Date Jay Moore MD PCP - General 05/03/09 04/10/15 Jay Moore MD PCP - General Internal Medicine 04/11/15 04/11/15 [facility], Pcp PCP - General Internal Medicine 04/12/15 02/04/18 Jay Moore MD PCP - General Internal Medicine 02/05/18 documented as of this encounter
--- OUTSIDE RECORDS SUMMARY | 2024-10-05 12:49 | XMS_ITS | Encounter Summary ---
Author Organization [facility] Address [address] [facility] [address] [place] [address] Phone Care Team Providers Care Stained Glass Joiner Name Role Phone Name, Jay PHAM Primary Care Provider Unavailabl e Reason for Visit * Reason Comments Med Refill Encounter Details Date Type Department Care Team (Late Contact Info) Description 09/25/2022 Refill [facility] [address] [facility] [address] [place] [address] Amanedep Stuart MD Social History Tobacco Use Types [...] Visit [facility] [address] [place] [phone] Ander Sen MD [address] [facility] [address] [place] [phone] documented as of this encounter Visit Diagnoses Not on filedocumented in this encounter Care Teams Stained Glass Joiner Relationship Specialty Start Date End Date Name, MD Jay [address] [place] [address] PCP - General Internal Medicine 12/07/20 documented as of this encounter
== END 2024-10-05 12:06 | disposition home or self-care (01) ==
LOC: HO.MAMMO 12:05
PROVIDERS: Visit Provider Internal Medicine Geriatric Medicine
DX: Z12.31 Encounter for screening mammogram for malignant neoplasm of breast (principal)
CPT/HCPCS: 77063; 77067

== ENCOUNTER → 2024-10-05 12:30 | Outpatient (BNV) | payer OTHER, SELFPAY | PROVIDERS: Visit Provider Radiology Body Imaging | DX: Z12.31 Encounter for screening mammogram for malignant neoplasm of breast (principal) | CPT/HCPCS: 77063; 77067 ==

== ENCOUNTER 2024-10-26 07:46 | Outpatient (REF) | payer OTHER, SELFPAY ==
--- NOTE | ~2024-10-26 | US_ITS ---
EXAMINATION: US ABDOMEN COMPLETE WITH LIVER ELASTOGRAPHY HISTORY: R10.13 - Epigastric pain TECHNIQUE: Real-time grayscale ultrasound imaging of the abdomen was performed and images were reviewed. COMPARISON: Comparison is made with the prior examination dated 11/17/2022. FINDINGS: Liver: The right lobe of the liver measures 15.3 cm in size. The left lobe of the liver measures 11.5 cm in size. The liver demonstrates increased echotexture, consistent with steatosis. The liver contour appears somewhat nodular. No focal mass or intrahepatic biliary ductal dilatation is identified. There is normal hepatopedal flow in the portal vein. Ultrasound elastography of the liver was performed with 10 separate measurements of the liver parenchyma with the patient in the supine position. Measurements were obtained approximately 2 cm below Marilia's capsule and perpendicular to the capsule. The median shear wave velocity is 1.15 m/s. The interquartile range/median (IQR/median) is 0.20. Gallbladder and biliary tree: The gallbladder is surgically absent. The common bile duct is normal in caliber measuring 6 mm. Kidneys: The right kidney measures 11.0 cm in length. The left kidney measures 11.8 cm in length. The kidneys are unremarkable, without evidence of masses, hydronephrosis, or calculi. Pancreas: The pancreatic head, neck, and body are unremarkable. The pancreatic tail is obscured by bowel gas. Spleen: The spleen is normal in size and contour, measuring 9.6 cm in length. There is a 1.7 cm splenule. Abdominal aorta and inferior vena cava: The visualized portions of the abdominal aorta and inferior vena cava are normal in caliber. There is no free fluid in the abdomen. US/US abdomen comp w elastography IMPRESSION: Hepatic steatosis. Mildly nodular liver contour suggestive of cirrhosis. The median shear wave velocity in the liver is 1.15 m/s, corresponding to a median liver stiffness of 4.0 kPa. The IQR/median value is 0.20. This is indicative of a quality data set. Findings are indicative of a normal elastography value with a low likelihood of severe fibrosis or cirrhosis. REFERENCE: Society of Radiologists in Ultrasound Liver Stiffness Thresholds (2020): LIVER STIFFNESS THRESHOLDS: *Shear wave velocity less than 1.3 m/s (Liver Stiffness equal or less than 5 kPa): High probability of being normal. *Shear wave velocity less than 1.7 m/s (Liver Stiffness less than 9 kPa): In the absence of other known clinical signs, rules out compensated advanced chronic liver disease. *Shear wave velocity between 1.7-2.1 m/s (Liver Stiffness 9-13 kPa): Suggestive of compensated advanced chronic liver disease but need further test for confirmation. *Shear wave velocity between 2.1-2.4 m/s (Liver Stiffness 13-17 kPa): Rules in compensated advanced chronic liver disease. *Shear wave velocity greater than 2.4 m/s (Liver Stiffness over 17 kPa): Suggestive of clinically significant portal hypertension. QUALITY OF DATA SET: SIGNIFICANT CHANGE FROM PRIOR EXAM: Significant change if liver stiffness measurement is 10% or greater from prior exam. OTHER CONSIDERATIONS: The stage of liver fibrosis may be overestimated in the setting of acute hepatitis, liver inflammation, elevated liver function tests, hepatic vascular congestion, obstructive cholestasis, non-fasting state, and infiltrative diseases such as amyloidosis and lymphoma. In some patients with NAFLD, the liver stiffness thresholds for compensated advanced chronic liver disease may be lower. In causes other than viral hepatitis and NAFLD, liver stiffness thresholds are not well established. Electronically signed by: Jered Day MD 10/26/2024 08:39 AM EDT
--- OUTSIDE RECORDS SUMMARY | 2024-10-26 07:48 | XMS_ITS | Encounter Summary ---
Author Organization [facility] Address [address] [place] [address] Care Team Providers Care Migration Agent Name Role Phone Name, Jay PHAM Primary Care Provider Unavailabl e Name, Jay PHAM Primary Care Provider Unavailabl e Community, Pcp Primary Care Provider Unavailabl e Name, Jay PHAM Primary Care Provider Unavailabl e Encounter Details Date Type Department Care Team Description 10/17/2013 Family Reunification Specialist Report Medical Records [address] [place] [address] Cezar Burks MD Social History Tobacco Use [...] on filedocumented in this encounter Care Teams Migration Agent Relationship Specialty Start Date End Date Jay Moore MD PCP - General 05/03/09 04/10/15 Jay Moore MD PCP - General Internal Medicine 04/11/15 04/11/15 [facility], Pcp PCP - General Internal Medicine 04/12/15 02/04/18 Jay Moore MD PCP - General Internal Medicine 02/05/18 documented as of this encounter
--- OUTSIDE RECORDS SUMMARY | 2024-10-26 07:48 | XMS_ITS | Encounter Summary ---
Author Organization [facility] Address [address] [place] [phone] Phone Care Team Providers Care Technology Education Instructor Name Role Phone Pcp, Unknown Primary Care Provider Unavailabl e Encounter Details Date Type Department Care Team (Late st Contact Info) Description 05/28/2021 Procedure Pass [facility] Endoscopy Admitting Dept Virtual Department [address] [place] [address] Social History Tobacco Use Types Packs/Day Years [...] filedocumented in this encounter Additional Health Concerns Infection Onset Date Last Indicated Resolved Time C. diff 05/06/2021 05/06/2021 06/05/2021 1:21 AM EDT documented as of this encounter Care Teams Technology Education Instructor Relationship Specialty Start Date End Date Pcp, Unknown PCP - General 05/03/21 documented as of this encounter Additional Source Comments The information contained in this document represents components of the legal health record. It is not the complete legal health record.[facility]
--- OUTSIDE RECORDS SUMMARY | 2024-10-26 07:48 | XMS_ITS | Encounter Summary ---
Author Organization [facility] Address [address] [place] [address] Care Team Providers Care Fur Repair Inspector Name Role Phone Name, Jay PHAM Primary Care Provider Unavailabl e Name, Jay PHAM Primary Care Provider Unavailabl e Community, Pcp Primary Care Provider Unavailabl e Name, Jay PHAM Primary Care Provider Unavailabl e Encounter Details Date Type Department Care Team Description 08/30/2014 Release of Information Medical Records [address] [place] [id number] Abstract, Provider Social History Tobacco Use Types [...] on filedocumented in this encounter Care Teams Fur Repair Inspector Relationship Specialty Start Date End Date Jay Moore MD PCP - General 05/03/09 04/10/15 Jay Moore MD PCP - General Internal Medicine 04/11/15 04/11/15 [facility], Pcp PCP - General Internal Medicine 04/12/15 02/04/18 Jay Moore MD PCP - General Internal Medicine 02/05/18 documented as of this encounter
--- OUTSIDE RECORDS SUMMARY | 2024-10-26 07:48 | XMS_ITS | Encounter Summary ---
Author Organization [facility] Address [address] [place] [address] Care Team Providers Care Correction Officer Head Name Role Phone Name, Jay PHAM Primary Care Provider Unavailabl e Name, Jay PHAM Primary Care Provider Unavailabl e Community, Pcp Primary Care Provider Unavailabl e Name, Jay PHAM Primary Care Provider Unavailabl e Reason for Visit * Reason Comments E-prescribe Rx Request Encounter Details Date Type Department Care Team Description 04/04/2011 Refill Adult [address] [address] NameJay MD E-prescribe Rx Request Social History [...] on filedocumented in this encounter Care Teams Correction Officer Head Relationship Specialty Start Date End Date Jay Moore MD PCP - General 05/03/09 04/10/15 Jay Moore MD PCP - General Internal Medicine 04/11/15 04/11/15 Community, Pcp PCP - General Internal Medicine 04/12/15 02/04/18 Jay Moore MD PCP - General Internal Medicine 02/05/18 documented as of this encounter
--- OUTSIDE RECORDS SUMMARY | 2024-10-26 07:48 | XMS_ITS | Clinical Summary ---
Author Organization [facility] Address [address] [place] [address] Phone Care Team Providers Care Soil Fertility Specialist Name Role Phone Pcp, Unknown Primary Care [...] topic Medical Devices Not on file Insurance [facility] [employer] MEDICARE [place] [address] [place] [address] MEDICARE REPLACEMENT MEDIC[place] [address] [place] [address] MEDICARE REPLACEMENT MEDICARE REPLACEMENT MEDIC[place] [address] [place] [address] MEDICARE REPLACEMENT [facility] MEDICARE REPLACEMENT [facility] MEDICARE REPLACEMENT Care Teams Soil Fertility Specialist Relationship Specialty Start Date End Date Pcp, Unknown PCP - General 05/03/21 Additional Source Comments The information contained in this document represents components of the legal health record. It is not the complete legal health record.[facility]
--- OUTSIDE RECORDS SUMMARY | 2024-10-26 07:48 | XMS_ITS | Encounter Summary ---
Author Organization [facility] Address [address] [facility] [address] [place] [address] Phone Care Team Providers Care Shoe Lay Out Planner Name Role Phone Name, Jay PHAM Primary Care Provider Unavailabl e Reason for Visit * Reason Comments Med Refill Encounter Details Date Type Department Care Team (Late Contact Info) Description 09/25/2022 Refill [facility] [address] [facility] [address] [place] [address] Amandeep Stuart MD Social History [...] Visit [facility] [address] [place] [phone] Ander Sen MD [address] [facility] [address] [place] [phone] documented as of this encounter Visit Diagnoses Not on filedocumented in this encounter Care Teams Shoe Lay Out Planner Relationship Specialty Start Date End Date Name, MD Jay [address] [place] [address] PCP - General Internal Medicine 12/07/20 documented as of this encounter
--- OUTSIDE RECORDS SUMMARY | 2024-10-26 07:48 | XMS_ITS | Encounter Summary ---
Author Organization [facility] Address [address] [place] [address] Care Team Providers Care Imaging Account Manager Name Role Phone Name, Jay PHAM Primary Care Provider Unavailabl e Name, Jay PHAM Primary Care Provider Unavailabl e Community, Pcp Primary Care Provider Unavailabl e Name, Jay PHAM Primary Care Provider Unavailabl e Encounter Details Date Type Department Care Team Description 08/10/2014 Telephone Adult [address] [address] Jay Moore MD Social History Tobacco Use [...] on filedocumented in this encounter Care Teams Imaging Account Manager Relationship Specialty Start Date End Date Jay Moore MD PCP - General 05/03/09 04/10/15 Jay Moore MD PCP - General Internal Medicine 04/11/15 04/11/15 [facility], Pcp PCP - General Internal Medicine 04/12/15 02/04/18 Jay Moore MD PCP - General Internal Medicine 02/05/18 documented as of this encounter
--- OUTSIDE RECORDS SUMMARY | 2024-10-26 07:48 | XMS_ITS | Encounter Summary ---
Author Organization [facility] Address [address] [place] [address] Care Team Providers Care Roller Bearing Inspector Name Role Phone Name, Jay PHAM Primary Care Provider Unavailabl e Name, Jay PHAM Primary Care Provider Unavailabl e Community, Pcp Primary Care Provider Unavailabl e Name, Jay PHAM Primary Care Provider Unavailabl e Reason for Visit * Reason Onset Date Comments Testing 08/04/2012 MRI Encounter Details Date Type Department Care Team Description 08/04/2012 Telephone Adult Medicine [address] [address] NameJay MD Testing (MRI) Social History Tobacco [...] on filedocumented in this encounter Care Teams Roller Bearing Inspector Relationship Specialty Start Date End Date Name, MD Jay PCP - General 05/03/09 04/10/15 Jay Moore MD PCP - General Internal Medicine 04/11/15 04/11/15 [facility], Pcp PCP - General Internal Medicine 04/12/15 02/04/18 Name, MD Jay PCP - General Internal Medicine 02/05/18 documented as of this encounter
--- OUTSIDE RECORDS SUMMARY | 2024-10-26 07:48 | XMS_ITS | Clinical Summary ---
Author Organization [facility] Address [address] [address] Phone Care Team Providers Care Underwear Trimmer Name Role Phone Name, Jay PHAM Primary [...] Visit [facility] [address] [place] [phone] Ander Sen MD [address] [facility] [address] [place] [phone] Health Maintenance Due Date Last Done Comments Breast Cancer Screening 1955 Colorectal Cancer Screening: Annual FOBT 05/23/2003 Colorectal Cancer Screening: Colonoscopy 05/23/2003 Colorectal Cancer Screening: Sigmoidoscopy 05/23/2003 Pneumococcal Vaccine: 50+ Years (2 of 2 - PCV) 03/04/2011 03/04/2010 Influenza Vaccine (#1) 2024 7, 01/29/2016, 03/25/2013, Additional history exists Hepatitis B Vaccine Aged Out No longe r eligible based on patient's age to complete this topic Insurance [facility] ([id number]) [facility] ([id number]) Care Teams Underwear Trimmer Relationship Specialty Start Date End Date Name, MD Jay [address] [place] [address] PCP - General Internal Medicine 12/07/20
--- OUTSIDE RECORDS SUMMARY | 2024-10-26 07:48 | XMS_ITS | Encounter Summary ---
Author Organization [facility] Address [address] [place] [address] Phone Care Team Providers Care Cascara Bark Cutter Name Role Phone Pcp, Unknown Primary Care Provider Unavailabl e Encounter Details Date Type Department Care Team ([facility] st Contact Info) Description 05/29/2021 Procedure Pass [facility] Endoscopy Admitting Dept Virtual Department [address] [place] [address] Social History Tobacco Use Types Packs/Day Years [...] documented as of this encounter Care Teams Cascara Bark Cutter Relationship Specialty Start Date End Date Pcp, Unknown PCP - General 05/03/21 documented as of this encounter Additional Source Comments The information contained in this document represents components of the legal health record. It is not the complete legal health record.[facility]
--- OUTSIDE RECORDS SUMMARY | 2024-10-26 07:49 | XMS_ITS | Encounter Summary ---
Author Organization [facility] Address [address] [place] [address] Care Team Providers Care Technical Spec Name Role Phone Name, Jay PHAM Primary Care Provider Unavailabl e Name, Jay PHAM Primary Care Provider Unavailabl e Community, Pcp Primary Care Provider Unavailabl e Name, Jay PHAM Primary Care Provider Unavailabl e Encounter Details Date Type Department Care Team Description 02/25/2012 Hospital Medical Records [address] [place] [address] Ney Bustamante Social History Tobacco Use Types [...] on filedocumented in this encounter Care Teams Technical Spec Relationship Specialty Start Date End Date Jay Moore MD PCP - General 05/03/09 04/10/15 Jay Moore MD PCP - General Internal Medicine 04/11/15 04/11/15 [facility], Pcp PCP - General Internal Medicine 04/12/15 02/04/18 Jay Moore MD PCP - General Internal Medicine 02/05/18 documented as of this encounter
--- OUTSIDE RECORDS SUMMARY | 2024-10-26 07:49 | XMS_ITS | Encounter Summary ---
Author Organization [facility] Address [address] [place] [address] Care Team Providers Care Chief Program Officer Name Role Phone Name, Jay PHAM Primary Care Provider Unavailabl e Encounter Details Date Type Department Care Team Description 05/07/2018 Release of Information Medical Records [address] [place] [id number] Abstract, Provider Social History Tobacco Use Types [...] on filedocumented in this encounter Care Teams Chief Program Officer Relationship Specialty Start Date End Date Name, MD Jay PCP - General Internal Medicine 02/05/18 documented as of this encounter
--- OUTSIDE RECORDS SUMMARY | 2024-10-26 07:49 | XMS_ITS | Encounter Summary ---
Author Organization [facility] Address [address] [place] [address] Care Team Providers Care Stencil Maker Name Role Phone Name, Jay PHAM Primary Care Provider Unavailabl e Name, Jay PHAM Primary Care Provider Unavailabl e Community, Pcp Primary Care Provider Unavailabl e Name, Jay PHAM Primary Care Provider Unavailabl e Encounter Details Date Type Department Care Team Description 01/21/2011 Hospital Medical Records [address] [place] [address] Natacha Blank Social History Tobacco Use Types [...] on filedocumented in this encounter Care Teams Stencil Maker Relationship Specialty Start Date End Date Jay Moore MD PCP - General 05/03/09 04/10/15 Jay Moore MD PCP - General Internal Medicine 04/11/15 04/11/15 [facility], Pcp PCP - General Internal Medicine 04/12/15 02/04/18 Jay Moore MD PCP - General Internal Medicine 02/05/18 documented as of this encounter
--- OUTSIDE RECORDS SUMMARY | 2024-10-26 07:49 | XMS_ITS | Clinical Summary ---
Author Organization [facility] Address [address] [place] [address] Care Team Providers Care Foreign Diplomat Name Role Phone Name, Jay PHAM Primary Care Provider Unavailabl e Allergies Active Allergy Reactions Severity Noted Date Comments Ciprofloxacin Rash/Dermatitis 05/14/2009 Loracarbef 06/24/2010 Penicillins Rash/Dermatitis 09/29/2013 Previously recorded as penicillamine Oxycodone-Acetaminophen Rash/Dermatitis, Itc pj/Pruritus 05/14/2009 Simvastatin Rash/Dermatitis 05/14/2009 Vancomycin Rash/Dermatitis,Swe lling/Edema 05/14/2009 Medications Medication Sig Dispensed Refills Start Date End Date Status [place] 3 1000 MG CAPSIndications:Hy pertriglyceridemia Take 1 [...] Use in each nostril as directed 120 [place] 11 09/24/2018 Active ipratropium (ATROVENT) 0.06 % [...] Family History Medical History Relation Name Comments [place] Father in his 50s Relation Name Status Comments Daughter Alive high cholestero l Father high cholestero l and [place] Mother Alive CVA Sister Alive high cholestero [...] 80 09/24/2018 1:04 PM EDT Temperature 36.9 C (98.4 F) 11/20/2014 9:52 AM EDT Respiratory Rate 18 09/24/2018 1:04 PM EDT [...] - Tdap) 05/01/2005 04/30/2005 MAMMOGRAM 01/04/2014 01/04/2013, 06/0 03/2008, 03/27/2006, Additional history exists CHOLESTEROL SCREENING 08/04/2018 08/04/2013 , 01/15/2012, 08/15/2011, Additional history exists BONE DENSITY SCREENING 05/23/2019 PNEUMOCOCCAL VACCINE (2 - PCV) 05/23/2019 03/04/2010 INFLUENZA (#1) 2024 03/25/2013, 11/06/2010, Care Teams Foreign Diplomat Relationship Specialty Start Date End Date Name, MD Jay PCP - General Internal Medicine 02/05/18
--- OUTSIDE RECORDS SUMMARY | 2024-10-26 07:49 | XMS_ITS | Encounter Summary ---
Author Organization [facility] Address [address] [place] [address] Care Team Providers Care Roof Fitter Name Role Phone Community, Pcp Primary Care Provider Unavailabl e Jay Moore MD Primary Care Provider Unavailabl e Reason for Visit * Reason Comments E-prescribe Rx Request Encounter Details Date Type Department Care Team Description 04/12/2015 Refill Adult Medicine [address] [address] Name, MD Jay E-prescribe Rx Request Social [...] refills need to come from PCP at [facility] * Telephone Encounter - Rocio Thomas M.A. [...] Plan: MEDICAID PCC / Product Type: MEDICAID [id number] documented in this encounter Plan of Treatment Not on file documented as of this encounter Visit Diagnoses Not on filedocumented in this encounter Care Teams Roof Fitter Relationship Specialty Start Date End Date Community, Pcp PCP - General Internal Medicine 04/12/15 02/04/18 NameJay MD PCP - General Internal Medicine 02/05/18 documented as of this encounter
--- OUTSIDE RECORDS SUMMARY | 2024-10-26 07:49 | XMS_ITS | Encounter Summary ---
Author Organization [facility] Address [address] [place] [address] Care Team Providers Care Fan Mail Editor Name Role Phone Name, Jay PHAM Primary Care Provider Unavailabl e Name, Jay PHAM Primary Care Provider Unavailabl e Community, Pcp Primary Care Provider Unavailabl e Name, Jya PHAM Primary Care Provider Unavailabl e Encounter Details Date Type Department Care Team Description 03/14/2015 Release of Information Medical Records [address] [place] [address] Abstract, Provider Social History Tobacco Use Types [...] on filedocumented in this encounter Care Teams Fan Mail Editor Relationship Specialty Start Date End Date Jay Moore MD PCP - General 05/03/09 04/10/15 Jay Moore MD PCP - General Internal Medicine 04/11/15 04/11/15 [facility], Pcp PCP - General Internal Medicine 04/12/15 02/04/18 Jay Moore MD PCP - General Internal Medicine 02/05/18 documented as of this encounter
--- OUTSIDE RECORDS SUMMARY | 2024-10-26 07:49 | XMS_ITS | Encounter Summary ---
Author Organization [facility] Address [address] [place] [address] Care Team Providers Care Switchgear Repairer Name Role Phone Name, Jay PHAM Primary Care Provider Unavailabl e Name, Jay PHAM Primary Care Provider Unavailabl e Community, Pcp Primary Care Provider Unavailabl e Name, Jay PHAM Primary Care Provider Unavailabl e Reason for Visit * Reason Onset Date Comments Follow-up Appt Unavailable 11/24/2011 Encounter Details Date Type Department Care Team Description 11/24/2011 Telephone Adult Medicine [address] [address] Name, MD Jya Follow-up Appt Unavailable Social History Tobacco Use Types Packs/Day Years Used Date Smoking Tobacco: Former Cigarettes 0.3 Smokeless Tobacco: Never Comments:20 yrs Alcohol Use Standard Drinks/Week Comments No 0 (1 standard drink = 0.6 oz pur e alcohol) Sex Assigned at Date Recorded Not on file documented as of this encounter Miscellaneous Notes * Telephone Encounter - Annabelle Spencer R.N. - 11/24/2011 3:32 PM EDT Pt booked for 01/13 at 2:[address] petersen, message left for pt to call. she will need to confirm appointment or be rescheduled with triage. * Telephone Encounter - Juliette Garrido - 11/24/2011 1:50 PM EDT Follow up appointment not available. Please call patient to book-no open NON PUBLIC SLOTS. Appointment needed Dr Petersen in 6 weeks, on or about Jan 04. documented in this encounter Plan of Treatment Not on file documented as of this encounter Visit Diagnoses Not on filedocumented in this encounter Care Teams Switchgear Repairer Relationship Specialty Start Date End Date Name, MD Jay PCP - General 05/03/09 04/10/15 Jay Petersen MD PCP - General Internal Medicine 04/11/15 04/11/15 [facility], Pcp PCP - General Internal Medicine 04/12/15 02/04/18 Name, MD Jay PCP - General Internal Medicine 02/05/18 documented as of this encounter
--- OUTSIDE RECORDS SUMMARY | 2024-10-26 07:49 | XMS_ITS | Patient Health Record ---
Author Organization [facility] Address [address] [place] [address] Care Team Providers Care Masonry Teacher Name Role Phone Jered Sutton [phone] Reason For Referral No Information Plan Of Treatment No Information
--- OUTSIDE RECORDS SUMMARY | 2024-10-26 07:49 | XMS_ITS | Encounter Summary ---
Author Organization [facility] Address [address] [place] [address] Care Team Providers Care Lay Out Drafter Name Role Phone Name, Jay PHAM Primary Care Provider Unavailabl e Name, Jay PHAM Primary Care Provider Unavailabl e Community, Pcp Primary Care Provider Unavailabl e Name, Jay PHAM Primary Care Provider Unavailabl e Encounter Details Date Type Department Care Team Description 01/18/2011 Hospital Medical Records [address] [place] [address] Natacha Blank Social History Tobacco Use Types [...] on filedocumented in this encounter Care Teams Lay Out Drafter Relationship Specialty Start Date End Date Jay Moore MD PCP - General 05/03/09 04/10/15 Jay Moore MD PCP - General Internal Medicine 04/11/15 04/11/15 [facility], Pcp PCP - General Internal Medicine 04/12/15 02/04/18 Jay Moore MD PCP - General Internal Medicine 02/05/18 documented as of this encounter
--- OUTSIDE RECORDS SUMMARY | 2024-10-26 07:49 | XMS_ITS | Encounter Summary ---
Author Organization [facility] Address [address] [place] [address] Care Team Providers Care Area Coordinator Name Role Phone Community, Pcp Primary Care Provider Unavailtomas e Jay Moore MD Primary Care Provider Unavailabl e Encounter Details Date Type Department Care Team Description 05/24/2015 Release of Information Medical Records [address] [place] [id number] Abstract, Provider Social History Tobacco Use Types [...] on filedocumented in this encounter Care Teams Area Coordinator Relationship Specialty Start Date End Date Community, Pcp PCP - General Internal Medicine 04/12/15 02/04/18 Jay Moore MD PCP - General Internal Medicine 02/05/18 documented as of this encounter
--- OUTSIDE RECORDS SUMMARY | 2024-10-26 07:49 | XMS_ITS | Encounter Summary ---
Author Organization [facility] Address [address] [place] [address] Care Team Providers Care Career Placement Services Counselor Name Role Phone Name, Jay PHAM Primary Care Provider Unavailabl e Name, Jay PHAM Primary Care Provider Unavailabl e Community, Pcp Primary Care Provider Unavailabl e Name, Jay PHAM Primary Care Provider Unavailabl e Encounter Details Date Type Department Care Team Description 12/17/2010 Home Health Certification Medical Records [address] [place] [address] Social History Tobacco Use Types Packs/Day Years [...] on filedocumented in this encounter Care Teams Career Placement Services Counselor Relationship Specialty Start Date End Date Jay Moore MD PCP - General 05/03/09 04/10/15 Jay Moore MD PCP - General Internal Medicine 04/11/15 04/11/15 [facility], Pcp PCP - General Internal Medicine 04/12/15 02/04/18 Jay Moore MD PCP - General Internal Medicine 02/05/18 documented as of this encounter
== END 2024-10-26 07:47 | disposition home or self-care (01) ==
LOC: HO.US 07:46
PROVIDERS: PCP Internal Medicine Geriatric Medicine; Visit Provider Internal Medicine Gastroenterology
DX: R10.13 Epigastric pain (principal)
CPT/HCPCS: 76700; 76981

== ENCOUNTER → 2024-10-26 07:48 | Outpatient (BNV) | payer OTHER, SELFPAY | PROVIDERS: PCP Internal Medicine Geriatric Medicine; Visit Provider Radiology Diagnostic Radiology | DX: K76.0 Fatty (change of) liver, not elsewhere classified (principal) | CPT/HCPCS: 76700 ==

== ENCOUNTER 2024-11-04 10:45 | Outpatient (AMB) | payer OTHER, SELFPAY ==
--- NOTE | 2024-11-04 11:01 | A.OFFVIS_ITS ---
Vital Signs 11/04/24 11:02 Height 5 ft 3 in Weight 136 lb 10.986 oz BMI 24.2 BP 90/66 Blood Pressure Location Lt brachial Position Sitting Pulse 86 Pulse Source Pulse Oximeter Pulse Oximetry (%) 95 Oxygen Delivery Method Room Air Intake Visit Reasons: COPD Allergies ciprofloxacin (From Cipro) Allergy (Intermediate, Verified 11/04/24 11:05) HIVES/ITCHING oxycodone (Percocet) Allergy (Intermediate, Verified 11/04/24 11:05) Hives Penicillins Allergy (Intermediate, Verified 11/04/24 11:05) HIVES/ITCHING simvastatin (Simvastatin) Allergy (Intermediate, Verified 11/04/24 11:05) HIVES/ITCHINIG vancomycin (Vancomycin) Allergy (Intermediate, Verified 11/04/24 11:05) HIVES/ITCHING latex Allergy (Mild, Verified 11/04/24 11:05) Rash milnacipran (From Savella) Allergy (Mild, Verified 11/04/24 11:05) Hives Sulfa (Sulfonamide Antibiotics) Allergy (Mild, Verified 11/04/24 11:05) Shortness of Breath dupilumab (From Dupixent Pen) Adverse Reaction (Intermediate, Verified 11/04/24 11:05) neuropathy HPI Comments Details: The patient is a 69-year-old woman known allergic rhinitis and severe persistent asthma. She has been using her respiratory therapy. Still having significant shortness of breath because she has been exposed to significant smoke and fumes from her upstairs neighbor. She is very the 89 hold also lives in the same environment and also has been getting worsening respiratory symptoms. She will talk to the now alert and also I gave her a number of an asthma association that may be able to help her. Continues to have wheezing at times. She is waking up more often. Also having more coughing. She has been more congested. She has been getting allergy medications from filler room attendant. He will bring maximizing her respiratory therapy. She has tried certain biologic therapies with her filler room attendant. She had a bad reaction to Xolair I am not sure if she try Dupixent or interlukin 5 inhibitors yet. The patient has severe persistent asthma with significant wheezing right now on examination. She has been using the Dupixent injections every 2 weeks with very good effect. She continues on respiratory therapy. She has not required any prednisone which is been great. It also has been helping her chronic rhinitis. In the meantime she is dealing with issues with abdominal pain and reflux. She was evaluated by GI and appears to be have some peptic ulcer disease and H pylori. Therefore she was started on therapy although difficult for her to tolerate. Now she is planned to have an endoscopy which should be reassuring. In the meantime she needs to continue with the reflux diet and she also understands the acid reflux can exacerbate her respiratory issues. 03/07/2022 the patient is here for pulmonary follow-up visit. She continues to have her significant asthma symptoms and also nasal congestion. Moderate severity. She continues to be on chronic prednisone because of the severity of her symptoms. She also continues with respiratory therapy. Based on her steroid dependent asthma the patient it is more agreeable to considering a different biologic regimen. Again she already tried Xolair in Dupixent. Although Dupixent was helpful initially the patient then became symptomatic with significant neuropathy and had to stop it. The patient is agreeable to looking into starting Tezspire. at this point the patient is having significant wheezing on examination and will require additional prednisone. Will also start the process for the biologic regimen. 05/01/2023 the patient is here for pulmonary follow-up visit. Overall the patient has been doing well from a respiratory status. Although typically her asthma worsened springtime. The patient will be maximize her respiratory therapy by increasing the Spiriva to the maximum dose. She is already using the Dulera twice a day. She also requires her rescue inhaler about twice a week. The patient did have a full cardiac workup which was reassuring. She has not had a chest x-ray now in couple years. Will go ahead and repeat her chest x-ray at this time. If his abnormal call her and will follow-up with any additional testing in the case. We did talk about biologics. The patient still is reluctant to use any biologics specially with a bad reaction to the Dupixent and also has had bad reactions to other medications. Therefore will continue to monitor her closely during the springtime if she has any issues she will call the office for an earlier assessment. Otherwise will follow-up in 4-6 months. 07/06/2023 the patient is here for a pulmonary sick visit. She has been sick now for about 2 days. She started developing chest tightness pressure and chest congestion. Denies any fevers or chills. She has been using her nebulizer home with only partial resolution of her wheezing and chest tightness. She is very concerned. Again, we talked about biologic therapy. She is tried some in the past and had adverse effects and she really does not want to try anything else. Although I do believe Tezspire will be a very good option for her. Right now she has significant wheezing. I did give her 2 treatments with DuoNeb. In addition to that the patient will go home and orange picking supervisor some prednisone and start a course of azithromycin. If the patient is no better she can always call to reassess. In the meantime we did review her recent CT scan of the chest. Her CT scan is reassuring she does have some pleural thickening areas and some areas of fibrosis but minimal. The patient does have mosaic pattern consistent with her asthma. 11/06/2023 the patient is here for a pulmonary follow-up visit. Overall the patient is still having issues with her asthma. She has frequent flare-ups. Now going to the fall she has additional allergies. She had responded well to Dupixent as far as her breathing but did result in adverse effects. She is concerned about any other biologic therapy. She is not willing to start any biologic therapies at this time. Therefore, give her additional prednisone for her to take. She is having increasing chest tightness right now. Moderate severity with wheezing. She continues use her respiratory therapy and also has a nebulizer. She is willing to start Daliresp as a way to decrease her chronic bronchitis and chronic obstructive pulmonary disease exacerbations. Will start her on the 250 mcg dose and then increase as tolerated to the therapeutic dose. 02/10/2024 the patient is here for a pulmonary follow-up visit. Recently she was hospitalized with an asthma exacerbation. She required additional prednisone. Now she is off the prednisone. She is using the Dulera. She has not been using the Spiriva. She does have severe persistent asthma. She also has significant allergies. Unfortunately she has had reactions to the biologics. Although I do believe has part be a very good option for her. She is reluctant to use it at this time. Although, I believe will be a good option for her. She is going to consider it for now. Will going to maximize her respiratory therapy by adding Spiriva. Right now her breathing is stable so therefore will hold off in an additional prednisone. She does have osteopenia on her bone scan so I explained to the importance for her to stay away from prednisone as much as possible. She also did try the Daliresp unfortunately she had an adverse reaction feeling agitated and restless. Therefore will hold off on that at this time. 04/05/2024 the patient is here for a pulmonary follow-up visit. The patient overall still the same. She still complains of wheezing complains of chest tightness. [id number] severity. She has been off the prednisone which is reassuring. She continues on her inhalers. I believe that she may have some and he does at home and she is not quite clear which ones they are. She possibly is taking Dulera and maybe taking Bevespi. So I did provide her with a map of the different inhalers. I do believe that she will do better with a combination inhaler such as Breztri . Therefore will send Breztri to the pharmacy. In the meantime she is not interested in any biologic therapy for her filler room attendant. She does have an filler room attendant and we did provide her with an allergy referral but she has not heard. I did give her the information she can call the office. She continues to take Faye once or twice a day and continues with a nasal therapies sprays. No recent imaging studies to review. last CXR from 12/2023 was normal. 08/05/2024 the patient is here for pulmonary follow-up visit. She is struggling with allergies in her asthma. She has been on prednisone now multiple times for the month. Springtime is usually the worst season for her. She already has been on multiple biologics and she is reluctant to try others because of adverse effects. But at this point the dose of prednisone is too much. She is willing to start tezspire. I do believe test probably be a very good option for her. She has significant allergic asthma. In the meantime I will send her additional prednisone in order for her to improve her respiratory symptoms And wheezing. She is also having significant neck discomfort. She is working closely with pain management. She can not tolerate Motrin. She could try small dose of Celebrex and see if this provides some relief specially since his affecting her overall quality of life. If it does work for her she can talk to her primary care doctor about continue a Jolly 2 inhibitor if that is a reasonable option for her. Will plan to follow-up in 3 months. I am hopeful that we can get the Kirsten approve and have her start therapy soon. 11/04/2024 the patient is here for pulmonary follow-up visit. The patient has been having hard time with the breathing. She has significant chest tightness. She was supposed to start the biologic test prior which was approved by insurance. But, it was only approved for a month supply. We need to get approval for the year so she can continue getting the shots every 4 weeks. Therefore we need to go back and talk to her insurance company to get clarity. In the meantime she does have her respiratory inhalers which have beer to be partially helpful. She responds well to prednisone although she knows the side effects of prednisone. Will keep her on a small dose of 10 mg since she were able to taper down to every other day to try to improve her respiratory symptoms. She knows not to use any ibuprofen or Jolly 2 inhibitors while on the prednisone. Will follow-up in 2-3 months. Hopefully we can wean off the prednisone in the coming weeks. [facility] Medical History Asthma-COPD overlap syndrome Asthma exacerbation Abnormal electrocardiogram [ECG] [EKG] Chest pain Bleeding hemorrhoids Eczema VERA positive DVT (deep venous thrombosis) Tachycardia Dyspnea Sinusitis Rash URI (upper respiratory infection) History of anesthesia problem Osteoarthritis Fibromyalgia GERD (gastroesophageal reflux disease) Cervicalgia Depression History of vertigo Varicose vein of leg Chronic pain of left knee Allergic rhinitis Anxiety Asthma Migraine Surgical History History of esophagogastroduodenoscopy (EGD) History of repair of right rotator cuff Hx of bilateral breast reduction surgery Hx of hemorrhoidectomy H/O varicose vein ligation and stripping Hx of colonoscopy Hx of hysterectomy Hx of appendectomy Hx laparoscopic cholecystectomy Status post right rotator cuff repair Family History Father No problems noted. Mother Family history of high blood pressure Dementia Social History Household Members: None Housing: Apartment Do you presently have visiting nurse or other home services: No Alcohol intake: former Comment: pt uses cane as baseline Patient Tobacco Use Status: Never used Tobacco Second Hand Smoke Exposure: No Advance Directives Date on File: 04/03/18 service: No Current occupational status: unemployed Current occupation: Left Handed Review of Systems Const Reports fatigue, Reports headache(s), Denies night sweats and Reports weight loss ENT Denies change in voice, Reports headache(s), Denies lip swelling, Denies mouth pain, Reports nasal congestion, Reports nasal discharge, Reports nasal obstruction, Reports neck pain, Reports post nasal drip and Denies tongue swelling Card Denies chest pain, Denies dyspnea and Reports dyspnea on exertion Resp Reports change in phlegm color, Reports chest congestion, Reports cough, Denies dyspnea, Reports dyspnea on exertion and Reports wheezing GI Denies abdominal pain, Denies diarrhea and Denies loose stools Musc Reports back pain, Reports myalgias and Reports neck pain Neuro Denies Neuro-related abnormal movements, Denies burning sensations, Reports headache(s) and Denies paresthesias Psych Denies no additional complaints Endo Reports fatigue Shabbir/Lymph Denies easy bleeding and Denies lymphadenopathy Aller/Immun Denies lip swelling, Denies tongue swelling and Reports wheezing Physical Exam Vital Signs: Last Vital Signs Pulse 86 11/04/24 11:02 BP 90/66 11/04/24 11:02 Pulse Ox 95 11/04/24 11:02 Oxygen Delivery Method Room Air 11/04/24 11:02 BMI result Body Mass Index 24.2 Const General: cooperative, healthy appearing and comfortable Orientation/consciousness: oriented to person, oriented to place and oriented to time Neck Carotids: no bruits Chest Chest palpation & inspection: normal inspection of the chest and normal palpation of entire chest wall Resp Effort & Inspection: normal respiratory effort and prolonged expiratory phase Auscultation: wheezes and diminished lung sounds Cardio Rate: regular rate Heart sounds: S1 normal heart sound present and S2 normal heart sound present Peripheral pulses: Peripheral pulses 2+ throughout GI Inspection: Yes normal to inspection Skin Other: +2 edema, large rope-like varicosities greater than 3 mm CEAP Classification C4 - skin color changes Ep - Etiology Primary As - superficial veins P - reflux General skin exam: dry skin Neuro General: oriented to person, oriented to place and oriented to time Extrem Right lower extremity: full ROM, normal capillary refill and edema Left lower extremity: full ROM, normal capillary refill and edema Psych Mental Status: mental status grossly normal Assessment & Plan Assessment & Plan (1) Asthma: Code(s): J45.909 - Unspecified asthma, uncomplicated Category: Medical Qualifiers: Asthma complication type: with acute exacerbation Asthma persistence: persistent Asthma severity: severe Qualified Code(s): J45.51 - Severe persistent asthma with (acute) exacerbation (2) Allergic reaction: Code(s): T78.40XA - Allergy, unspecified, initial encounter Category: Medical Qualifiers: Encounter type: initial encounter Qualified Code(s): T78.40XA - Allergy, unspecified, initial encounter (3) GERD (gastroesophageal reflux disease): Code(s): K21.9 - Gastro-esophageal reflux disease without esophagitis Category: Medical Qualifiers: Esophagitis bleeding: without hemorrhage Esophagitis presence: with esophagitis Qualified Code(s): K21.00 - Gastro-esophageal reflux disease with esophagitis, without bleeding (4) Eczema: Code(s): L30.9 - Dermatitis, unspecified Category: Medical Qualifiers: Eczema type: intrinsic Qualified Code(s): L20.84 - Intrinsic (allergic) eczema (5) Asthma-COPD overlap syndrome: Code(s): J44.89 - Other specified chronic obstructive pulmonary disease Category: Medical Plan Breztri BRENDA as needed Continue nebulizer therapy Reflux diet Nasal rinsing Prednisone low taper Start tezspire, awaiting insurance approval Follow-up 3-4 months Medications: New prednisone 10 mg PO DAILY 30 tabs 1RF 30 days Changed From albuterol sulfate 90 mcg/actuation (Ventolin HFA) 2 puffs inhalation QID 30 days PRN 18 grams 11RF shortness of breath or wheezing To albuterol sulfate 90 mcg/actuation 2 puffs inhalation QID PRN 8.5 grams 11RF shortness of breath or wheezing 30 days Refilled [id number] 160-9-4.8 mcg/actuation (Breztri Aerosphere) 2 inhalations inhalation BID 10.7 grams 11RF J44.89 - Other specified chronic obstructive pulmonary disease Discontinued umeclidinium 62.5 mcg/actuation (Incruse Ellipta) Discontinued Reason: Doctor's Order 1 inh inhalation DAILY 30 days 30 ea 11RF J44.9 - Chronic obstructive pulmonary disease, unspecified, J45.909 - Unspecified asthma, uncomplicated Coding Level of Care Code Est Pt Level 4 (77061) Complex EM visit Add On G2211 Diagnoses Severe persistent asthma with acute exacerbation J45.51 Asthma complication type: with acute exacerbation Asthma persistence: persistent Asthma severity: severe Allergic reaction, initial encounter T78.40XA Encounter type: initial encounter Gastroesophageal reflux disease with esophagitis without hemorrhage K21.00 Esophagitis bleeding: without hemorrhage Esophagitis presence: with esophagitis Intrinsic eczema L20.84 Eczema type: intrinsic Asthma-COPD overlap syndrome J44.89 Time Spent (min) 17
[2024-11-04 11:02] VITALS: BP 90/66; PULSE 86; O2SAT 95; BMI 24.2
--- OUTSIDE RECORDS SUMMARY | 2024-11-04 11:46 | XMS_ITS | Clinical Summary ---
Author Organization [employer] Address [address] [place] [address] 7 [place] [address] Care Team Providers Care Mails Supervisor Name Role Phone Name, Jay PHAM Primary Care Provider [phone] Allergies Active Allergy Reactions Criticality Noted Date [...] MORNING 90 tablet 3 06/02/19 25 Active Breztri Aerosphere 160-9-4.8 MCG/ACT aerosol Take 2 puffs by mouth 2 times daily. 04/05/19 25 Active hydroCHLOROthi azide (Microzide) 12.5 MG capsuleIndicat ions:Hypertens ion, essential TAKE 1 CAPSULE BY MOUTH IN THE MORNING 90 capsule 1 09/20/19 25 Active SUMAtriptan (Imitrex) 25 MG tablet TAKE 1 TAB 1 TIME IF NEEDED FOR MIGRAINE. MAY REPEAT DOSE IN 2 HOURS IF NO RELIEF MAX 2 DOSES/24 HRS 9 tablet 3 11/02/19 25 Active SUMAtriptan (Imitrex) 25 MG tablet TAKE 1 TABLET BY MOUTH 1 (ONE) TIME IF NEEDED FOR MIGRAINE. MAY REPEAT DOSE ONCE IN 2 HOURS IF NO RELIEF. DO NOT EXCEED 2 DOSES IN 24 HOURS. 9 tablet 3 07/12/19 25 025 Discontinued Hospital, Clinic, or Other [...] Encounters Date Type Department Care Team Description 11/03/2024 Telephone [facility] PEDS [address] [place] [address] Name, MD Jay Chart Prep 10/31/2024 Refill [facility] MEDICINE [address] [place] [address] Jay Moore MD 10/05/2024 Orders Only [facility] MEDICINE [address] [place], [place] [phone] Jay Moore MD 09/17/2024 Refill [facility] MEDICINE [address] [place], [place] [phone] Jay Moore MD Hypertension, essential 08/04/2024 Telephone [facility] MEDICINE [address] [place], [place] [phone] Keyana Ledbetter [place] september recalls from Last 3 Months Immunizations Immunization Administration Dates Next Due Influenza injectable quadriv alent IIV4 with preservative 12/12/2016,01/29/2016 Influenza, IIV3, injectable 03/25/2013, 1,03/04/2010 Novel [id number], preservative-free 05/14 PPD Test 06/24/2010 Pneumococcal Polysaccharide [...] kg (133 lb 9.6 oz) 07/12/2024 1:00 PM EDT Height 160 cm (5' 3 ) 07/12/2024 1:00 PM EDT Body Mass Index 23.67 07/12/2024 1:00 PM EDT Plan of Treatment Upcoming Encounters Date Type Department Care Team (Late st Contact Info) Description 11/04/2024 1:00 PM EDT Office Visit [facility] MEDICINE [address] [place] [address] Name, MD Jay [address] [place] [address] Health Maintenance Due Date Last Done Comments CT Colonography 1955 Colonoscopy 1955 Colorectal Cancer Screening 1955 FIT DNA/Cologuard 1955 FIT 1955 FOBT 1955 Sigmoidoscopy 1955 Hepatitis C Screening 1972 Zoster Vaccines (1 of 2) 2004 Pneumococcal Vaccine: 50+ Years (2 of 2 - PCV) 03/04/2011 03/04/2010 RSV Patients and Patients Aged 60 years or older (1 - Risk 60-74 years 1-dose series) 2014 Depression Monitoring 09/19/2024 03/22/2024, 025 COVID-19 Vaccine ( season) 2024 Influenza Vaccine (#1) 2024 7, 01/29/2016, 03/25/2013, Additional history exists Alcohol/Substance Use Screening 03/22/2025 03/22/2024 SDOH Screening 03/22/2025 03/22/2024 Tobacco Screening 07/12/2025 07/12/2024 DTaP/Tdap/Td Vaccines (4 - Td or Tdap) 02/11/2026 02/12/2016, 04/30/2005, 04/30/2005 Mammogram 10/05/2026 10/05/2024, 0403/2023, 01/08/2022, Additional history exists Lipid Panel 04/28/2027 04/28/2022 HIB Vaccines Aged [...] Procedure Name Priority Date/Time Associated Diagnosis Comments US ABDOMEN COMPLETE WITH ELASTOGRAPHY Routine 10/26/2024 8:13 AM EDT BI MAMMOGRAM SCREENING TOMOSYNTHESIS BILATERAL Routine 10/05/2024 12:07 PM EDT LIPID PANEL, STANDARD Routine 04/28/2022 11:01 AM EST from Last 3 Months or Most Recently Relevant to Health Maintenance Results * US Abdomen Comp w elastography (10/26/2024 8:13 AM EDT) Anatomical Region Laterality Modality Abdomen Ultrasound 10/26/2024 8:13 AM EDT Narrative 10/26/2024 8:42 AM EDT [place] [address] Ultrasound Report Signed Patient: Kaitlin Munguia MR#: [id number] 3 : 1955 Acct:[id number] Age/Sex: 69 / F ADM Date: 10/26/24 Loc: HO.US Attending Dr: Diana Boss MD Ordering Physician: Diana Boss MD Date of Service: 10/26/24 Procedure(s): US abdomen comp w elastography Accession Number(s): [id number] cc: Diana Boss MD; Name,Jay PHAM EXAMINATION: US ABDOMEN COMPLETE WITH LIVER ELASTOGRAPHY HISTORY: R10.13 - Epigastric pain TECHNIQUE: Real-time grayscale ultrasound imaging of the abdomen was performed and images were reviewed. COMPARISON: Comparison is made with the prior examination dated 11/17/2022. FINDINGS: Liver: The right lobe of the liver measures 15.3 cm in size. The left lobe of the liver measures 11.5 cm in size. The liver demonstrates increased echotexture, consistent with steatosis. The liver contour appears somewhat nodular. No focal mass or intrahepatic biliary ductal dilatation is identified. There is normal hepatopedal flow in the portal vein. Ultrasound elastography of the liver was performed with 10 separate measurements of the liver parenchyma with the patient in the supine position. Measurements were obtained approximately 2 cm below Marilia's capsule and perpendicular to the capsule. The median shear wave velocity is 1.15 m/s. The interquartile range/median (IQR/median) is 0.20. Gallbladder and biliary tree: The gallbladder is surgically absent. The common bile duct is normal in caliber measuring 6 mm. Kidneys: The right kidney measures 11.0 cm in length. The left kidney measures 11.8 cm in length. The kidneys are unremarkable, without evidence of masses, hydronephrosis, or calculi. Pancreas: The pancreatic head, neck, and body are unremarkable. The pancreatic tail is obscured by bowel gas. Spleen: The spleen is normal in size and contour, measuring 9.6 cm in length. There is a 1.7 cm splenule. Abdominal aorta and inferior vena cava: The visualized portions of the abdominal aorta and inferior vena cava are normal in caliber. There is no free fluid in the abdomen. US/US abdomen comp w elastography IMPRESSION: Hepatic steatosis. Mildly nodular liver contour suggestive of cirrhosis. The median shear wave velocity in the liver is 1.15 m/s, corresponding to a median liver stiffness of 4.0 kPa. The IQR/median value is 0.20. This is indicative of a quality data set. Findings are indicative of a normal elastography value with a low likelihood of severe fibrosis or cirrhosis. REFERENCE: Society of Radiologists in Ultrasound Liver Stiffness Thresholds (2019): LIVER STIFFNESS THRESHOLDS: *Shear wave velocity less than 1.3 m/s (Liver Stiffness equal or less than 5 kPa): High probability of being normal. *Shear wave velocity less than 1.7 m/s (Liver Stiffness less than 9 kPa): In the absence of other known clinical signs, rules out compensated advanced chronic liver disease. *Shear wave velocity between 1.7-2.1 m/s (Liver Stiffness 9-13 kPa): Suggestive of compensated advanced chronic liver disease but need further test for confirmation. *Shear wave velocity between 2.1-2.4 m/s (Liver Stiffness 13-17 kPa): Rules in compensated advanced chronic liver disease. *Shear wave velocity greater than 2.4 m/s (Liver Stiffness over 17 kPa): Suggestive of clinically significant portal hypertension. QUALITY OF DATA SET: SIGNIFICANT CHANGE FROM PRIOR EXAM: Significant change if liver stiffness measurement is 10% or greater from prior exam. OTHER CONSIDERATIONS: The stage of liver fibrosis may be overestimated in the setting of acute hepatitis, liver inflammation, elevated liver function tests, hepatic vascular congestion, obstructive cholestasis, non-fasting state, and infiltrative diseases such as amyloidosis and lymphoma. In some patients with NAFLD, the liver stiffness thresholds for compensated advanced chronic liver disease may be lower. In causes other than viral hepatitis and NAFLD, liver stiffness thresholds are not well established. Electronically signed by: Jered Day MD 10/26/2024 08:39 AM EDT RP Dictated By: Jered Day MD Signed By: <Electronically signed by Jered Day MD in [place]> 10/26/24838 DD/ 2 TD/TT: 10/26/24824 Lumber Buyer: Procedure Note Donotuseinterpreter, Image - 10/26/2024 [place] [address] Ultrasound Report Signed Patient: Anish Munguia#: [id number] 3 : 5Acct:[id number] Age/Sex: 69 / FADM Date: 10/26/24 Loc: HO.US Attending Dr: Diana Boss MD Ordering Physician: Diana Boss MD Date of Service: 10/26/24 Procedure(s): US abdomen comp w elastography Accession Number(s): [id number] cc: Diana Boss MD; Name,Jay PHAM EXAMINATION: US ABDOMEN COMPLETE WITH LIVER ELASTOGRAPHY HISTORY: R10.13 - Epigastric pain TECHNIQUE: Real-time grayscale ultrasound imaging of the abdomen was performed and images were reviewed. COMPARISON: Comparison is made with the prior examination dated 11/17/2022. FINDINGS: Liver: The right lobe of the liver measures 15.3 cm in size. The left lobe of the liver measures 11.5 cm in size. The liver demonstrates increased echotexture, consistent with steatosis. The liver contour appears somewhat nodular. No focal mass or intrahepatic biliary ductal dilatation is identified. There is normal hepatopedal flow in the portal vein. Ultrasound elastography of the liver was performed with 10 separate measurements of the liver parenchyma with the patient in the supine position. Measurements were obtained approximately 2 cm below Marilia's capsule and perpendicular to the capsule. The median shear wave velocity is 1.15 m/s. The interquartile range/median (IQR/median) is 0.20. Gallbladder and biliary tree: The gallbladder is surgically absent. The common bile duct is normal in caliber measuring 6 mm. Kidneys: The right kidney measures 11.0 cm in length. The left kidney measures 11.8 cm in length. The kidneys are unremarkable, without evidence of masses, hydronephrosis, or calculi. Pancreas: The pancreatic head, neck, and body are unremarkable. The pancreatic tail is obscured by bowel gas. Spleen: The spleen is normal in size and contour, measuring 9.6 cm in length. There is a 1.7 cm splenule. Abdominal aorta and inferior vena cava: The visualized portions of the abdominal aorta and inferior vena cava are normal in caliber. There is no free fluid in the abdomen. US/US abdomen comp w elastography IMPRESSION: Hepatic steatosis. Mildly nodular liver contour suggestive of cirrhosis. The median shear wave velocity in the liver is 1.15 m/s, corresponding to a median liver stiffness of 4.0 kPa. The IQR/median value is 0.20. This is indicative of a quality data set. Findings are indicative of a normal elastography value with a low likelihood of severe fibrosis or cirrhosis. REFERENCE: Society of Radiologists in Ultrasound Liver Stiffness Thresholds (2019): LIVER STIFFNESS THRESHOLDS: *Shear wave velocity less than 1.3 m/s (Liver Stiffness equal or less than 5 kPa): High probability of being normal. *Shear wave velocity less than 1.7 m/s (Liver Stiffness less than 9 kPa): In the absence of other known clinical signs, rules out compensated advanced chronic liver disease. *Shear wave velocity between 1.7-2.1 m/s (Liver Stiffness 9-13 kPa): Suggestive of compensated advanced chronic liver disease but need further test for confirmation. *Shear wave velocity between 2.1-2.4 m/s (Liver Stiffness 13-17 kPa): Rules in compensated advanced chronic liver disease. *Shear wave velocity greater than 2.4 m/s (Liver Stiffness over 17 kPa): Suggestive of clinically significant portal hypertension. QUALITY OF DATA SET: SIGNIFICANT CHANGE FROM PRIOR EXAM: Significant change if liver stiffness measurement is 10% or greater from prior exam. OTHER CONSIDERATIONS: The stage of liver fibrosis may be overestimated in the setting of acute hepatitis, liver inflammation, elevated liver function tests, hepatic vascular congestion, obstructive cholestasis, non-fasting state, and infiltrative diseases such as amyloidosis and lymphoma. In some patients with NAFLD, the liver stiffness thresholds for compensated advanced chronic liver disease may be lower. In causes other than viral hepatitis and NAFLD, liver stiffness thresholds are not well established. Electronically signed by: Jered Day MD 10/26/2024 08:39 AM EDT Dictated By: Jered Day MD Signed By: <Electronically signed by Jered Day MD in [place]> 10/26/2439 DD/ 2 TD/TT: 10/26/24824 Lumber Buyer: [facility] External Provider IMG US PROCEDURES Edited Result - Final * BI Mammogram Screening Tomosynthesis Bilateral (10/05/2024 12:07 PM EDT) Anatomical Region Laterality Modality Breast Bilateral Mammography 10/05/2024 12:0 7 PM EDT Narrative 10/15/2024 6:28 PM EDT [address] [place] [address] Mammography Report Signed Patient: Kaitlin Munguia MR#: [id number] 3 : 1955 Acct:[id number] Age/Sex: 69 / F ADM Date: 10/05/24 Loc: HODulceMAMMO Attending Dr: Jay Moore MD Ordering Physician: Jay Moore MD Results: 2Benign ndings Date of Service: 10/05/24 Follow Up: 1 Year From [facility] Mammogram Procedure(s): MM tomosynthesis screening BI Accession Number(s): [id number] cc: Jay Moore MD EXAMINATION: MM SCREENING DIGITAL BREAST TOMOSYNTHESIS, BILATERAL CLINICAL INFORMATION: Screening. Asymptomatic. COMPARISON: Comparison made to multiple prior, most recent June 11, 2023, and most remote July 23, 2018. TECHNIQUE: Digital breast tomosynthesis is performed in both the craniocaudal and mediolateral oblique views along with computer-aided detection (CAD). FINDINGS: BREAST COMPOSITION: There are scattered areas of fibroglandular density (ACR BI-RADS breast composition Category b). RIGHT BREAST: History of reduction mammoplasty. No significant masses, suspicious calcifications or other abnormalities are seen. LEFT BREAST: History of reduction mammoplasty. History of previous excisional biopsy. No significant masses, suspicious calcifications or other abnormalities are seen. MM/MM tomosynthesis screening BI IMPRESSION: BILATERAL BREASTS: Benign, no mammographic evidence of malignancy. Normal interval follow-up is recommended in 12 months. ASSESSMENT: BI-RADS 2 - Benign Findings RECOMMENDATION: Routine annual mammography screening. FOLLOW-UP: 1 year F/U This examination should not preclude the clinical evaluation of a suspicious palpable abnormality. This patient's information was entered into a reminder system with a target due date for their next mammogram. Electronically signed by: Betito Bee MD 10/15/2024 06:25 PM EDT RP Dictated By: Betito Bee MD Signed By: <Electronically signed by Betito Bee MD in [place]> 10/15/24 1825 DD/ 1207 TD/TT: 10/05/24 1232 Lumber Buyer: Procedure Note Donotuseinterpreter, Image - 10/15/2024 [facility] [address] [place] [address] Mammography Report Signed Patient: Anish Munguia#: [id number] 3 : 5Acct:[id number] Age/Sex: 69 / FADM Date: 10/05/24 Loc: HO.MAMMO Attending Dr: Jay Moore MD Ordering Physician: Jay Moore MDResults: 2Benign Fi ndings Date of Service: 10/05/24Follow Up: 1 Year From Orig inal Mammogram Procedure(s): MM tomosynthesis screening BI Accession Number(s): [id number] cc: Jay Moore MD EXAMINATION: MM SCREENING DIGITAL BREAST TOMOSYNTHESIS, BILATERAL CLINICAL INFORMATION: Screening. Asymptomatic. COMPARISON: Comparison made to multiple prior, most recent June 11, 2023, and most remote July 23, 2018. TECHNIQUE: Digital breast tomosynthesis is performed in both the craniocaudal and mediolateral oblique views along with computer-aided detection (CAD). FINDINGS: BREAST COMPOSITION: There are scattered areas of fibroglandular density (ACR BI-RADS breast composition Category b). RIGHT BREAST: History of reduction mammoplasty. No significant masses, suspicious calcifications or other abnormalities are seen. LEFT BREAST: History of reduction mammoplasty. History of previous excisional biopsy. No significant masses, suspicious calcifications or other abnormalities are seen. MM/MM tomosynthesis screening BI IMPRESSION: BILATERAL BREASTS: Benign, no mammographic evidence of malignancy. Normal interval follow-up is recommended in 12 months. ASSESSMENT: BI-RADS 2 - Benign Findings RECOMMENDATION: Routine annual mammography screening. FOLLOW-UP: 1 year F/U This examination should not preclude the clinical evaluation of a suspicious palpable abnormality. This patient's information was entered into a reminder system with a target due date for their next mammogram. Electronically signed by: Betito Bee MD 10/15/2024 06:25 PM EDT Dictated By: Betito Bee MD Signed By: <Electronically signed by Betito Bee MD in OV> 10/15/24 1825 DD/ 1207 TD/TT: 10/05/24 1232 Lumber Buyer: us Jay Name [facility] BI PROCEDURES Edited Result - Final * Lipid Panel, Standard (04/28/2022 11:01 AM EST) Triglycerides 171 mg/dL [facility] Comment:Desirable Triglyceri de: less than 150 mg/dLBorderline High Triglyceride 150-199 mg/dLHigh Triglyceride: 200-499 mg/dLVery High Triglyceride: greater than or equal to 5OO mg/dL Cholesterol 259 mg/dL [facility] Comment:Desirable Cholestero l: less than 200 mg/dLBorderline High Cholesterol: 200-239 mg/dLHigh Cholesterol: greater than 239 mg/dL LDL Cholesterol Calculated 190 mg/dl [facility] Comment:Desirable LDL: less than 100 mg/dLNear Optimal/Above Optimal LDL: 110- 129 mg/dLBorderline High LDL: 130-159 mg/dLHigh LDL: 160-189 mg/dLVery High LDL: greater than or equal to 190 mg/dL HDL Cholesterol 35 mg/dL [facility] Comment:Desirable HDL: great er than 40 mg/dL Note: This HDL assay may give artificially low results in patients with liver disease. 04/28/2022 11:0 1 AM EST 04/28/2022 11:01 AM EST us [facility] External Provider LAB BLO OD ORDERABLES Final Result [facility] [address] [place] [address] [phone] from Last 3 Months or Most Recently Relevant to Health Maintenance Insurance [facility] RES[employer] (HMO D-SNP) GLENDA KELLER [id number] Care Teams Mails Supervisor Relationship Specialty Start Date End Date Name, MD Jay [address] [place] [address] PCP - General Family Medicine 03/02/18
--- OUTSIDE RECORDS SUMMARY | 2024-11-04 11:46 | XMS_ITS | Clinical Summary ---
Author Organization [facility] Address [address] [place] [phone] Phone Care Team Providers Care Certified Financial Planner Name Role Phone Pcp, Unknown Primary Care [...] (1 of 2) 2004 PNEUMOCOCCAL VACCINES (50+ years) (2 of 2 - PCV) 03/04/2011 03/04/2010 Adult Td,Tdap Booster 05/01/2015 04/30/2005 OSTEOPOROSIS SCREENING INITIAL (ONE-TIME) 05/23/2019 INFLUENZA VACCINE (#1) 2024 4, 11/06/2010, 03/04/2010, Additional history exists COVID-19 VACCINE ( - 2023- season) 2024 RSV VACCINE (1 - 1-dose 75+ series) 2029 SMOKING STATUS SCREENING (Once After 26 Yrs) Completed 05/10/2021 HEPATITIS A [...] topic Medical Devices Not on file Insurance [facility] [employer] MEDICARE REPLACEMENT [place] [address] [address] MEDICARE REPLACEMENT GLENDA KELLER [id number] [facility] MEDICARE REPLACEMENT [facility] MEDICARE REPLACEMENT [place] [address] MEDICARE REPLACEMENT [facility] MEDICARE REPLACEMENT [facility] MEDICARE REPLACEMENT [facility] MEDICARE REPLACEMENT [facility] MEDICARE REPLACEMENT Care Teams Certified Financial Planner Relationship Specialty Start Date End Date Pcp, Unknown PCP - General 05/03/21 Additional Source Comments The information contained in this document represents components of the legal health record. It is not the complete legal health record.[facility]
--- OUTSIDE RECORDS SUMMARY | 2024-11-04 11:46 | XMS_ITS | Encounter Summary ---
Author Organization [facility] Address [address] [place] [phone] Phone Care Team Providers Care Log Snaker Name Role Phone Pcp, Unknown Primary Care Provider Unavailabl e Encounter Details Date Type Department Care Team ([facility] st Contact Info) Description 05/29/2021 Procedure Pass [facility] Endoscopy Admitting Dept Virtual Department [address] [place] [address] Social History Tobacco Use Types Packs/Day Years [...] documented as of this encounter Care Teams Log Snaker Relationship Specialty Start Date End Date Pcp, Unknown PCP - General 05/03/21 documented as of this encounter Additional Source Comments The information contained in this document represents components of the legal health record. It is not the complete legal health record.[facility]
--- OUTSIDE RECORDS SUMMARY | 2024-11-04 11:46 | XMS_ITS | Encounter Summary ---
Author Organization [facility] Address [address] [facility] [address] [place] [address] Phone Care Team Providers Care Research Support Specialist Name Role Phone Name, Jay PHAM Primary Care Provider Unavailabl e Reason for Visit * Reason Comments Med Refill Encounter Details Date Type Department Care Team (Late Contact Info) Description 09/25/2022 Refill [facility] [address] [facility] [address] [place] [address] Amandeep Stuart MD Social History [...] Visit [facility] [address] [place] [phone] Ander Sen MD [address] [facility] [address] [place] [phone] documented as of this encounter Visit Diagnoses Not on filedocumented in this encounter Care Teams Research Support Specialist Relationship Specialty Start Date End Date Name, MD Jay [address] [place] [address] PCP - General Internal Medicine 12/07/20 documented as of this encounter
--- OUTSIDE RECORDS SUMMARY | 2024-11-04 11:46 | XMS_ITS | Patient Health Record ---
Author Organization [facility] Address [address] [place] [address] Care Team Providers Care Emergency Room Specialist Name Role Phone Jered Sutton [phone] Reason For Referral No Information Plan Of Treatment No Information
--- OUTSIDE RECORDS SUMMARY | 2024-11-04 11:46 | XMS_ITS | Encounter Summary ---
Author Organization [facility] Address [address] [place] [address] [address] [place] [address] Care Team Providers Care Box Printer Name Role Phone Name, Jay PHAM Primary Care Provider [phone] Reason for Visit * Reason Comments Med Refill Encounter Details Date Type Department Care Team ([facility] Contact Info) Description 05/07/2022 Refill [facility] [address] [place] [address] [phone] Name, MD Jay [address] [place] [phone] Social History Tobacco Use Types Packs/Day Years [...] Upcoming Encounters Date Type Department Care Team ([facility] Contact Info) Description 11/04/2024 1:00 PM EDT Office Visit [facility] [address] [place] [address] [phone] Name, MD Jay [address] [place] [address] [phone] documented as of this encounter Visit Diagnoses Not on filedocumented in this encounter Care Teams Box Printer Relationship Specialty Start Date End Date Name, MD Jay [address] [place] [address] PCP - General Family Medicine 03/02/18 documented as of this encounter
--- OUTSIDE RECORDS SUMMARY | 2024-11-04 11:46 | XMS_ITS | Encounter Summary ---
Author Organization [employer] Address [address] [facility] 7t [place] [address] Care Team Providers Care Roving Hauler Name Role Phone Name, Jay PHAM Primary Care Provider Reason for Visit * Reason Comments Med Refill Encounter Details Date Type Department Care Team ([facility] st Contact Info) Description 10/31/2024 Refill [facility] [address] [place], [place] [phone] Name, MD Jay [address] [place] [address] Social History Tobacco Use Types Packs/Day Years [...] Description 11/04/2024 1:00 PM EDT Office Visit [facility] [address] [place] [phone] Name, MD Jay [address] [place] [address] documented as of this encounter Visit Diagnoses Not on filedocumented in this encounter Additional Health Concerns Assessment Noted Time PHQ-9 Depression Total Score: 10 025 1:13 PM EST documented as of this encounter Care Teams Roving Hauler Relationship Specialty Start Date End Date NameJay MD [address] [place] [phone] PCP - General Family Medicine 03/02/18 documented as of this encounter
--- OUTSIDE RECORDS SUMMARY | 2024-11-04 11:46 | XMS_ITS | Encounter Summary ---
Author Organization [employer] Address [address] [facility] 7 [place] [address] Care Team Providers Care Manager E Learning Name Role Phone Name, Jay PHAM Primary Care Provider [phone] Reason for Visit * Reason Onset Date Comments Hospital Follow-up 12/15/2023 Encounter Details Date Type Department Care Team ([facility] Contact Info) Description 12/15/2023 Telephone [facility] [address] [place], [place] [phone] Name, MD Jay [address] [place] [address] Hospital Follow-up Social History Tobacco Use Types [...] from pt requesting a HDF appt. Hospital: [facility] Date of admission: 12/10/23 Discharge date: 12/14/23 Diagnosed: Asthma Attack (Kyrgyz Speaker) documented in this encounter Plan of Treatment Upcoming Encounters Date Type Department Care Team (Late st Contact Info) Description 11/04/2024 1:00 PM EDT Office Visit [facility] [address] [place] [phone] Name, MD Jay [address] [place] [phone] documented as of this encounter Visit Diagnoses Not on filedocumented in this encounter Additional Health Concerns Assessment Noted Time PHQ-9 Depression Total Score: 11 024 9:40 AM EDT documented as of this encounter Care Teams Manager E Learning Relationship Specialty Start Date End Date Name, MD Jay [address] [place] [phone] PCP - General Family Medicine 03/02/18 documented as of this encounter
--- OUTSIDE RECORDS SUMMARY | 2024-11-04 11:46 | XMS_ITS | Clinical Summary ---
Author Organization [facility] Address [address] [phone] Phone Care Team Providers Care Eeo Officer Name Role Phone Name, Jay PHAM [...] Visit [facility] [address] [place] [phone] Ander Sen MD [address] [facility] [address] [place] [phone] Health Maintenance Due Date Last Done Comments [...] patient's age to complete this topic Insurance [facility] ([id number]) [facility] ([id number]) Care Teams Eeo Officer Relationship Specialty Start Date End Date Name, MD Jay [address] [place] [address] [place] [address] PCP - General Internal Medicine 12/07/20
--- OUTSIDE RECORDS SUMMARY | 2024-11-04 11:46 | XMS_ITS | Encounter Summary ---
Author Organization [employer] Address [address] [facility] 7 [place] [address] Care Team Providers Care Sports Commentator Name Role Phone Name, Jay PHAM Primary Care Provider [phone] Reason for Visit * Reason Onset Date Comments Chart Prep 11/03/2024 Encounter Details Date Type Department Care Team ([facility] Contact Info) Description 11/03/[address] [facility] [address] [place], [place] [phone] Name, MD Jay [address] [place] [address] Chart Prep Social History Tobacco Use Types Packs/Day Years [...] encounter Miscellaneous Notes * Telephone Encounter - Kip Pineda [place] - 11/03/2024 10:34 AM EDT Chart Prep Labs: done Images: done Referrals: complete Vaccines due: Covid, Flu, PCV20, RSV, and Zoster Screenings: colonoscopy Overdue care gaps: Oral health screening documented in this encounter Plan of Treatment Upcoming Encounters Date Type Department Care Team (Late st Contact Info) Description 11/04/2024 1:00 PM EDT Office Visit [facility] [address] [place] [phone] Name, MD Jay [address] [place] [address] documented as of this encounter Visit Diagnoses Not on filedocumented in this encounter Additional Health Concerns Assessment Noted Time PHQ-9 Depression Total Score: 10 025 1:13 PM EST documented as of this encounter Care Teams Sports Commentator Relationship Specialty Start Date End Date Jay Moore MD [address] [place] [phone] PCP - General Family Medicine 03/02/18 documented as of this encounter
--- OUTSIDE RECORDS SUMMARY | 2024-11-04 11:46 | XMS_ITS | Encounter Summary ---
Author Organization [facility] Address [address] [place] [phone] Phone Care Team Providers Care Development Assistant Name Role Phone Pcp, Unknown Primary Care Provider Unavailabl e Encounter Details Date Type Department Care Team (Late st Contact Info) Description 05/28/2021 Procedure Pass [facility] Endoscopy Admitting Dept Virtual Department [address] [place] [address] Social History Tobacco Use Types Packs/Day Years [...] documented as of this encounter Care Teams Development Assistant Relationship Specialty Start Date End Date Pcp, Unknown PCP - General 05/03/21 documented as of this encounter Additional Source Comments The information contained in this document represents components of the legal health record. It is not the complete legal health record.[facility]
== END 2024-11-04 11:34 | disposition home or self-care (01) ==
LOC: HO.HPS 10:46
PROVIDERS: PCP Internal Medicine Geriatric Medicine; Visit Provider Hospitalist
DX: J45.51 Severe persistent asthma with (acute) exacerbation (principal); T78.40XA Allergy, unspecified, initial encounter; K21.00 Gastro-esophageal reflux disease with esophagitis, without bleeding; L20.84 Intrinsic (allergic) eczema; J44.89 Other specified chronic obstructive pulmonary disease
CPT/HCPCS: 99214; G2211

== ENCOUNTER → 2024-11-04 10:45 | Outpatient (BNVA) | payer OTHER, SELFPAY | PROVIDERS: PCP Internal Medicine Geriatric Medicine; Visit Provider Hospitalist | DX: J45.51 Severe persistent asthma with (acute) exacerbation (principal); T78.40XA Allergy, unspecified, initial encounter; J44.89 Other specified chronic obstructive pulmonary disease; L20.84 Intrinsic (allergic) eczema; K21.00 Gastro-esophageal reflux disease with esophagitis, without bleeding; R07.9 Chest pain, unspecified; R94.31 Abnormal electrocardiogram [ECG] [EKG] | CPT/HCPCS: 99212 ==

== ENCOUNTER 2025-01-17 13:08 | Outpatient (REF) | payer OTHER, SELFPAY ==
[2025-01-17 14:26] LABS: Resp Syncy Virus RNA Qual PCR NEGATIVE (Negative); SARS COV2 PCR INHOUSE NEGATIVE (Negative)
--- OUTSIDE RECORDS SUMMARY | 2025-01-18 07:12 | XMS_ITS | Encounter Summary ---
Author Organization [employer] Address [address] [facility] 7t [place] [address] Care Team Providers Care Cow Tester Name Role Phone Name, Jay PHAM Primary Care Provider [phone] Encounter Details Date Type Department Care Team (Late st Contact Info) Description 01/17/2025 Orders Only GENERIC EXTERNAL DATA DEPARTMENT Provider, [...] Care Team (Late st Contact Info) Description 03/07/2025 3:15 PM EST Office Visit [facility] [address] [place] [phone] Name, MD Jay [address] [place] [address] documented as of this encounter Procedures Procedure Name Priority Date/Time Associated Diagnosis Comments SARS COV2/INFLUENZA A/B AND RSV RNA QL NAAT Routine 01/17/2025 1:08 PM EST documented in this encounter Results * SARS-CoV-2 RNA, Influenza A/B, and RSV RNA, Ql NAAT (01/17/2025 1:08 PM EST) Influenza A PCR NEGATIVE Negative [facility] Influenza B PCR NEGATIVE Negative [facility] Resp Syncy Virus RNA Qual PCR NEGATIVE Negative [facility] SARS COV2 PCR NEGATIVE Negative [facility] Comment:All test results mus t be correlated with clinical findings.Negative results do not preclude SARS-CoV2, influenza Avirus, influenza B virus and/or RSV infectionand should not be used as the sole basis for treatment orother patient management decisions. Negative results must becombined with clinical observations, patient history, andepidemiological information.This test has not been evaluated for monitoring treatment ofinfection.This test has been authorized by the FDA under an EmergencyUse Authorization (EUA) for use by authorized laboratories.Testing performed on the [employer] GeneXpert utilizingreal-time RT-PCR.All SARS CoV2 and positive influenza A/B results arereported to [facility]. 01/17/2025 1:08 PM EST 01/17/2025 1:39 PM EST us Generic External Data Provider LAB MICROBIOLOGY - GENERAL ORDERABLES Final Result [facility] [address] [place] [address] [phone] documented in this encounter Visit Diagnoses Not on filedocumented in this encounter Additional Health Concerns Assessment Noted Time PHQ-9 Depression Total Score: 10 03/22/ 025 1:13 PM EST documented as of this encounter Care Teams Cow Tester Relationship Specialty Start Date End Date Name, MD Jay [address] [place] [address] PCP - General Family Medicine 03/02/18 documented as of this encounter
--- OUTSIDE RECORDS SUMMARY | 2025-01-18 07:12 | XMS_ITS | Encounter Summary ---
Author Organization [employer] [facility] Address [address] [place] [address] 7 [place] [address] Care Team Providers Care Certified Peer Specialist Name Role Phone Name, Jay PHAM Primary Care Provider [phone] Reason for Visit * Reason Comments Med Refill Encounter Details Date Type Department Care Team ([facility] Contact Info) Description 05/07/2022 Refill [facility] [address] [place] [address] [phone] Name, MD Jay [address] [place] [phone] Social History Tobacco Use Types Packs/Day Years [...] Upcoming Encounters Date Type Department Care Team ([facility] Contact Info) Description 03/07/2025 3:15 PM EST Office Visit [facility] [address] [place] [address] [phone] Name, MD Jay [address] [place] [address] [phone] documented as of this encounter Visit Diagnoses Not on filedocumented in this encounter Care Teams Certified Peer Specialist Relationship Specialty Start Date End Date Name, MD Jay [address] [place] [address] PCP - General Family Medicine 03/02/18 documented as of this encounter
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
--- OUTSIDE RECORDS SUMMARY | 2025-01-18 07:13 | XMS_ITS | Encounter Summary ---
Author Organization [employer] Address [address] [facility] 7t [place] [address] Care Team Providers Care Bulk Gas Specialist Name Role Phone Name, Jay PHAM Primary Care Provider [phone] Reason for Visit * Reason Onset Date Comments Hospital Follow-up 12/15/2023 Encounter Details Date Type Department Care Team ([facility] Contact Info) Description 12/15/2023 Telephone [facility] [address] [place], [place] [phone] Name, MD Jay [address] [place] [address] Hospital Follow-up Social History Tobacco Use Types [...] from pt requesting a HDF appt. Hospital: [facility] Date of admission: 12/10/23 Discharge date: 12/14/23 Diagnosed: Asthma Attack (Sinhala Speaker) documented in this encounter Plan of Treatment Upcoming Encounters Date Type Department Care Team (Late st Contact Info) Description 03/07/2025 3:15 PM EST Office Visit [facility] [address] [place] [address] Name, MD Jay [address] [place] [phone] documented as of this encounter Visit Diagnoses Not on filedocumented in this encounter Additional Health Concerns Assessment Noted Time PHQ-9 Depression Total Score: 11 024 9:40 AM EDT documented as of this encounter Care Teams Bulk Gas Specialist Relationship Specialty Start Date End Date Name, MD Jay [address] [place] [phone] PCP - General Family Medicine 03/02/18 documented as of this encounter
== END 2025-01-17 13:09 | disposition home or self-care (01) ==
LOC: HO.LNP 13:08
PROVIDERS: PCP Internal Medicine Geriatric Medicine; Visit Provider Hospitalist
DX: J44.89 Other specified chronic obstructive pulmonary disease (principal); J45.51 Severe persistent asthma with (acute) exacerbation; R09.89 Other specified symptoms and signs involving the circulatory and respiratory systems; T78.40XA Allergy, unspecified, initial encounter; K21.00 Gastro-esophageal reflux disease with esophagitis, without bleeding; R07.9 Chest pain, unspecified; R94.31 Abnormal electrocardiogram [ECG] [EKG]; L20.84 Intrinsic (allergic) eczema; Z79.899 Other long term (current) drug therapy
CPT/HCPCS: 87637; 96372; 99212

== ENCOUNTER 2025-01-17 13:08 | Outpatient (AMB) | payer OTHER, SELFPAY ==
[2025-01-17 13:16] VITALS: BP 140/72; PULSE 86; O2SAT 96; BMI 24.6
--- NOTE | 2025-01-17 13:16 | A.OFFVIS_ITS ---
Vital Signs 01/17/25 13:16 Height 5 ft 3 in Weight 138 lb 14.259 oz BMI 24.6 BP 140/72 H Blood Pressure Location Lt brachial Position Sitting Pulse 86 Pulse Source Pulse Oximeter Pulse Oximetry (%) 96 Oxygen Delivery Method Room Air Intake Visit Reasons: COPD Tank Tender Required: Yes Tank Tender Services: Tank Tender Offered & Declined Tank Tender Name: MD speaks chinese Accompanied by: Self / Same As Patient Allergies ciprofloxacin (From Cipro) Allergy (Intermediate, Verified 01/17/25 13:19) HIVES/ITCHING oxycodone (Percocet) Allergy (Intermediate, Verified 01/17/25 13:19) Hives Penicillins Allergy (Intermediate, Verified 01/17/25 13:19) HIVES/ITCHING simvastatin (Simvastatin) Allergy (Intermediate, Verified 01/17/25 13:19) HIVES/ITCHINIG vancomycin (Vancomycin) Allergy (Intermediate, Verified 01/17/25 13:19) HIVES/ITCHING latex Allergy (Mild, Verified 01/17/25 13:19) Rash milnacipran (From Savella) Allergy (Mild, Verified 01/17/25 13:19) Hives Sulfa (Sulfonamide Antibiotics) Allergy (Mild, Verified 01/17/25 13:19) Shortness of Breath dupilumab (From Dupixent Pen) Adverse Reaction (Intermediate, Verified 01/17/25 13:19) neuropathy HPI Comments Details: The patient is a 69-year-old woman known allergic rhinitis and severe persistent asthma. She has been using her respiratory therapy. Still having significant shortness of breath because she has been exposed to significant smoke and fumes from her upstairs neighbor. She is very the [address] hold also lives in the same environment and also has been getting worsening respiratory symptoms. She will talk to the now alert and also I gave her a number of an asthma association that may be able to help her. Continues to have wheezing at times. She is waking up more often. Also having more coughing. She has been more congested. She has been getting allergy medications from automation qtp tester. He will bring maximizing her respiratory therapy. She has tried certain biologic therapies with her automation qtp tester. She had a bad reaction to Xolair I am not sure if she try Dupixent or interlukin 5 inhibitors yet. The patient has severe persistent asthma with significant wheezing right now on examination. She has been using the Dupixent injections every 2 weeks with very good effect. She continues on respiratory therapy. She has not required any prednisone which is been great. It also has been helping her chronic rhinitis. In the meantime she is dealing with issues with abdominal pain and reflux. She was evaluated by GI and appears to be have some peptic ulcer disease and H pylori. Therefore she was started on therapy although difficult for her to tolerate. Now she is planned to have an endoscopy which should be reassuring. In the meantime she needs to continue with the reflux diet and she also understands the acid reflux can exacerbate her respiratory issues. 03/07/2022 the patient is here for pulmonary follow-up visit. She continues to have her significant asthma symptoms and also nasal congestion. Moderate severity. She continues to be on chronic prednisone because of the severity of her symptoms. She also continues with respiratory therapy. Based on her steroid dependent asthma the patient it is more agreeable to considering a different biologic regimen. Again she already tried Xolair in Dupixent. Although Dupixent was helpful initially the patient then became symptomatic with significant neuropathy and had to stop it. The patient is agreeable to looking into starting Tezspire. at this point the patient is having significant wheezing on examination and will require additional prednisone. Will also start the process for the biologic regimen. 05/01/2023 the patient is here for pulmonary follow-up visit. Overall the patient has been doing well from a respiratory status. Although typically her asthma worsened springtime. The patient will be maximize her respiratory therapy by increasing the Spiriva to the maximum dose. She is already using the Dulera twice a day. She also requires her rescue inhaler about twice a week. The patient did have a full cardiac workup which was reassuring. She has not had a chest x-ray now in couple years. Will go ahead and repeat her chest x-ray at this time. If his abnormal call her and will follow-up with any additional testing in the case. We did talk about biologics. The patient still is reluctant to use any biologics specially with a bad reaction to the Dupixent and also has had bad reactions to other medications. Therefore will continue to monitor her closely during the springtime if she has any issues she will call the office for an earlier assessment. Otherwise will follow-up in 4-6 months. 07/06/2023 the patient is here for a pulmonary sick visit. She has been sick now for about 2 days. She started developing chest tightness pressure and chest congestion. Denies any fevers or chills. She has been using her nebulizer home with only partial resolution of her wheezing and chest tightness. She is very concerned. Again, we talked about biologic therapy. She is tried some in the past and had adverse effects and she really does not want to try anything else. Although I do believe Tezspire will be a very good option for her. Right now she has significant wheezing. I did give her 2 treatments with DuoNeb. In addition to that the patient will go home and machine operator hop picker some prednisone and start a course of azithromycin. If the patient is no better she can always call to reassess. In the meantime we did review her recent CT scan of the chest. Her CT scan is reassuring she does have some pleural thickening areas and some areas of fibrosis but minimal. The patient does have mosaic pattern consistent with her asthma. 11/06/2023 the patient is here for a pulmonary follow-up visit. Overall the patient is still having issues with her asthma. She has frequent flare-ups. Now going to the fall she has additional allergies. She had responded well to Dupixent as far as her breathing but did result in adverse effects. She is concerned about any other biologic therapy. She is not willing to start any biologic therapies at this time. Therefore, give her additional prednisone for her to take. She is having increasing chest tightness right now. Moderate severity with wheezing. She continues use her respiratory therapy and also has a nebulizer. She is willing to start Daliresp as a way to decrease her chronic bronchitis and chronic obstructive pulmonary disease exacerbations. Will start her on the 250 mcg dose and then increase as tolerated to the therapeutic dose. 02/10/2024 the patient is here for a pulmonary follow-up visit. Recently she was hospitalized with an asthma exacerbation. She required additional prednisone. Now she is off the prednisone. She is using the Dulera. She has not been using the Spiriva. She does have severe persistent asthma. She also has significant allergies. Unfortunately she has had reactions to the biologics. Although I do believe has part be a very good option for her. She is reluctant to use it at this time. Although, I believe will be a good option for her. She is going to consider it for now. Will going to maximize her respiratory therapy by adding Spiriva. Right now her breathing is stable so therefore will hold off in an additional prednisone. She does have osteopenia on her bone scan so I explained to the importance for her to stay away from prednisone as much as possible. She also did try the Daliresp unfortunately she had an adverse reaction feeling agitated and restless. Therefore will hold off on that at this time. 04/05/2024 the patient is here for a pulmonary follow-up visit. The patient overall still the same. She still complains of wheezing complains of chest tightness. [id number] severity. She has been off the prednisone which is reassuring. She continues on her inhalers. I believe that she may have some and he does at home and she is not quite clear which ones they are. She possibly is taking Dulera and maybe taking Bevespi. So I did provide her with a map of the different inhalers. I do believe that she will do better with a combination inhaler such as Breztri . Therefore will send Breztri to the pharmacy. In the meantime she is not interested in any biologic therapy for her automation qtp tester. She does have an automation qtp tester and we did provide her with an allergy referral but she has not heard. I did give her the information she can call the office. She continues to take Faye once or twice a day and continues with a nasal therapies sprays. No recent imaging studies to review. last CXR from 12/2023 was normal. 08/05/2024 the patient is here for pulmonary follow-up visit. She is struggling with allergies in her asthma. She has been on prednisone now multiple times for the month. Springtime is usually the worst season for her. She already has been on multiple biologics and she is reluctant to try others because of adverse effects. But at this point the dose of prednisone is too much. She is willing to start tezspire. I do believe test probably be a very good option for her. She has significant allergic asthma. In the meantime I will send her additional prednisone in order for her to improve her respiratory symptoms And wheezing. She is also having significant neck discomfort. She is working closely with pain management. She can not tolerate Motrin. She could try small dose of Celebrex and see if this provides some relief specially since his affecting her overall quality of life. If it does work for her she can talk to her primary care doctor about continue a Jolly 2 inhibitor if that is a reasonable option for her. Will plan to follow-up in 3 months. I am hopeful that we can get the Jillianire approve and have her start therapy soon. 11/04/2024 the patient is here for pulmonary follow-up visit. The patient has been having hard time with the breathing. She has significant chest tightness. She was supposed to start the biologic test prior which was approved by insurance. But, it was only approved for a month supply. We need to get approval for the year so she can continue getting the shots every 4 weeks. Therefore we need to go back and talk to her insurance company to get clarity. In the meantime she does have her respiratory inhalers which have beer to be partially helpful. She responds well to prednisone although she knows the side effects of prednisone. Will keep her on a small dose of 10 mg since she were able to taper down to every other day to try to improve her respiratory symptoms. She knows not to use any ibuprofen or Jolly 2 inhibitors while on the prednisone. Will follow-up in 2-3 months. Hopefully we can wean off the prednisone in the coming weeks. 01/17/2025 the patient is here for pulmonary follow-up visit. She has not been feeling well for the last several days. She complains of feeling very tired and with headaches. She has had some chills. Denies any fevers. She did test negative for COVID at home. We did swab her for flu RSV and COVID today. The patient does have evidence of chest tightness. She does have some wheezing on exam. Will give her some Solu-Medrol and she will start a prednisone taper and doxycycline. In the meantime we are going to await the nasal swab. If it is positive for the flu or COVID I will talk to the patient about antiviral therapy. Otherwise the patient will continue her current respiratory therapy. Of note she decided not to start the test prior as initially planned for her severe persistent asthma. Will follow-up sometime in 3-4 months if any issues arise she can call for further recommendations. If her symptoms worsen she may need to go to the ER. [facility] Medical History Asthma-COPD overlap syndrome Asthma exacerbation Abnormal electrocardiogram [ECG] [EKG] Chest pain Bleeding hemorrhoids Eczema VERA positive DVT (deep venous thrombosis) Tachycardia Dyspnea Sinusitis Rash URI (upper respiratory infection) History of anesthesia problem Osteoarthritis Fibromyalgia GERD (gastroesophageal reflux disease) Cervicalgia Depression History of vertigo Varicose vein of leg Chronic pain of left knee Allergic rhinitis Anxiety Asthma Migraine Surgical History History of esophagogastroduodenoscopy (EGD) History of repair of right rotator cuff Hx of bilateral breast reduction surgery Hx of hemorrhoidectomy H/O varicose vein ligation and stripping Hx of colonoscopy Hx of hysterectomy Hx of appendectomy Hx laparoscopic cholecystectomy Status post right rotator cuff repair Family History Father No problems noted. Mother Family history of high blood pressure Dementia Social History Household Members: None Housing: Apartment Do you presently have visiting nurse or other home services: No Alcohol intake: former Comment: pt uses cane as baseline Patient Tobacco Use Status: Never used Tobacco Second Hand Smoke Exposure: No Advance Directives Date on File: 04/03/18 service: No Current occupational status: unemployed Current occupation: Left Handed Review of Systems Const Reports fatigue, Reports headache(s), Denies night sweats and Reports weight loss ENT Denies change in voice, Reports headache(s), Denies lip swelling, Denies mouth pain, Reports nasal congestion, Reports nasal discharge, Reports nasal obstruction, Reports neck pain, Reports post nasal drip and Denies tongue swelling Card Denies chest pain, Reports dyspnea and Reports dyspnea on exertion Resp Reports chest congestion, Reports cough, Reports dyspnea, Reports dyspnea on exertion and Reports wheezing GI Denies abdominal pain, Denies diarrhea and Denies loose stools Musc Reports back pain, Reports myalgias and Reports neck pain Neuro Denies Neuro-related abnormal movements, Denies burning sensations, Reports headache(s) and Denies paresthesias Psych Denies no additional complaints Endo Reports fatigue Shabbir/Lymph Denies easy bleeding and Denies lymphadenopathy Aller/Immun Denies lip swelling, Denies tongue swelling and Reports wheezing Physical Exam Vital Signs: Last Vital Signs Pulse 86 01/17/25 13:16 BP 140/72 H 01/17/25 13:16 Pulse Ox 96 01/17/25 13:16 Oxygen Delivery Method Room Air 01/17/25 13:16 BMI result Body Mass Index 24.6 Const General: cooperative, healthy appearing and comfortable Orientation/consciousness: oriented to person, oriented to place and oriented to time Neck Carotids: no bruits Chest Chest palpation & inspection: normal inspection of the chest and normal palpation of entire chest wall Resp Effort & Inspection: normal respiratory effort and prolonged expiratory phase Auscultation: wheezes and diminished lung sounds Cardio Rate: regular rate Heart sounds: S1 normal heart sound present and S2 normal heart sound present Peripheral pulses: Peripheral pulses 2+ throughout GI Inspection: Yes normal to inspection Skin Other: +2 edema, large rope-like varicosities greater than 3 mm CEAP Classification C4 - skin color changes Ep - Etiology Primary As - superficial veins P - reflux General skin exam: dry skin Neuro General: oriented to person, oriented to place and oriented to time Extrem Right lower extremity: full ROM, normal capillary refill and edema Left lower extremity: full ROM, normal capillary refill and edema Psych Mental Status: mental status grossly normal Office Meds methylprednisolone sod suc(PF) 125 mg/2 mL solution for injection Performing Provider: Anson Valle MD Performing Location: [facility] Administered by: Ruibna Markham LPN on 01/17/25 13:46 Dose Route Admin Location Dispensed Lot Number Expiration Date [facility] Motor Generator Set Operator 125 mg IM R buttock 1 ea [id number] 04/01/27 9845-9068-34 [employer] Total Dispensed Waste 1 ea 0 % Assessment & Plan Assessment & Plan (1) Asthma: Code(s): J45.909 - Unspecified asthma, uncomplicated Category: Medical Qualifiers: Asthma complication type: with acute exacerbation Asthma persistence: persistent Asthma severity: severe Qualified Code(s): J45.51 - Severe persistent asthma with (acute) exacerbation (2) Allergic reaction: Code(s): T78.40XA - Allergy, unspecified, initial encounter Category: Medical Qualifiers: Encounter type: initial encounter Qualified Code(s): T78.40XA - Allergy, unspecified, initial encounter (3) GERD (gastroesophageal reflux disease): Code(s): K21.9 - Gastro-esophageal reflux disease without esophagitis Category: Medical Qualifiers: Esophagitis bleeding: without hemorrhage Esophagitis presence: with esophagitis Qualified Code(s): K21.00 - Gastro-esophageal reflux disease with esophagitis, without bleeding (4) Eczema: Code(s): L30.9 - Dermatitis, unspecified Category: Medical Qualifiers: Eczema type: intrinsic Qualified Code(s): L20.84 - Intrinsic (allergic) eczema (5) Asthma-COPD overlap syndrome: Code(s): J44.89 - Other specified chronic obstructive pulmonary disease Category: Medical Plan Solumedrol-->prednisone taper start Azithromycin x 5 days Breztri BRENDA as needed Continue nebulizer therapy Reflux diet Nasal rinsing declined tezspire Follow-up 3-4 months Orders: Orders AMB Methylprednisolone Sod Succ Injection Today J45.51 - Severe persistent asthma with (acute) exacerbation SARS-CoV2/FLU/RSV Today R09.89 - Other specified symptoms and signs involving the circulatory and respiratory systems Medications: New azithromycin 500 mg PO DAILY 5 tabs 0RF 5 days prednisone PO daily; Take 2 tabs daily x 5 days, then 1 tablet daily x 5 days 15 tabs 0RF 10 days Coding Level of Care Code Est Pt Level 4 (92240) Complex EM visit Add On G2211 Diagnoses Severe persistent asthma with acute exacerbation J45.51 Asthma complication type: with acute exacerbation Asthma persistence: persistent Asthma severity: severe Allergic reaction, initial encounter T78.40XA Encounter type: initial encounter Gastroesophageal reflux disease with esophagitis without hemorrhage K21.00 Esophagitis bleeding: without hemorrhage Esophagitis presence: with esophagitis Intrinsic eczema L20.84 Eczema type: intrinsic Asthma-COPD overlap syndrome J44.89 Time Spent (min) 17
--- OUTSIDE RECORDS SUMMARY | 2025-01-18 05:05 | XMS_ITS | Encounter Summary ---
Author Organization [facility] Address [address] [facility] [address] [place] [address] Phone Care Team Providers Care Human Resource Adviser Name Role Phone Name, Jay PHAM Primary Care Provider Unavailabl e Reason for Visit * Reason Comments Med Refill Encounter Details Date Type Department Care Team (Late Contact Info) Description 09/25/2022 Refill [facility] [address] [facility] [address] [place] [address] Amandeep Stuart MD [address] [place] [address] Social History Tobacco Use Types Packs/Day Years [...] Care Team (Late st Contact Info) Description 11/13/2025 2:15 PM EDT Office Visit [facility] [address] [place] [id number] Ander Sen MD [address] [facility] [address] [place] [phone] documented as of this encounter Visit Diagnoses Not on filedocumented in this encounter Care Teams Human Resource Adviser Relationship Specialty Start Date End Date Name, MD Jay [address] [place] [address] PCP - General Internal Medicine 12/07/20 documented as of this encounter
--- OUTSIDE RECORDS SUMMARY | 2025-01-18 05:05 | XMS_ITS | Patient Health Record ---
Author Organization [facility] Address [address] [place] [address] Care Team Providers Care Plant Clerk Name Role Phone Jered Sutton [phone] Reason For Referral No Information Plan Of Treatment No Information
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
--- OUTSIDE RECORDS SUMMARY | 2025-01-18 05:05 | XMS_ITS | Clinical Summary ---
Author Organization [facility] Address [address] [place] [phone] Phone Care Team Providers Care General Office Worker Name Role Phone Pcp, Unknown Primary Care [...] Additional history exists COVID-19 VACCINE ( - 2024- season) 2024 RSV VACCINE (1 - 1-dose [...] topic Medical Devices Not on file Insurance [facility] [employer] MEDICARE [place] [address] [address] [place] [address] MEDICARE REPLACEMENT GLENDA KELLER [id number] [facility] MEDICARE REPLACEMENT [facility] MEDICARE [place] [address] MEDICARE REPLACEMENT [facility] MEDICARE REPLACEMENT [facility] MEDICARE REPLACEMENT [facility] MEDICARE REPLACEMENT [facility] MEDICARE REPLACEMENT Care Teams General Office Worker Relationship Specialty Start Date End Date Pcp, Unknown PCP - General 05/03/21 Additional Source Comments The information contained in this document represents components of the legal health record. It is not the complete legal health record.[facility]
--- OUTSIDE RECORDS SUMMARY | 2025-01-18 05:06 | XMS_ITS | Encounter Summary ---
Author Organization [facility] Address [address] [place] [address] Phone Care Team Providers Care Auctioneer Tobacco Name Role Phone Pcp, Unknown Primary Care Provider Unavailabl e Encounter Details Date Type Department Care Team (Late st Contact Info) Description 05/28/2021 Procedure Pass [facility] Endoscopy Admitting Dept Virtual Department [address] [place] [address] Social History Tobacco Use Types Packs/Day Years [...] documented as of this encounter Care Teams Auctioneer Tobacco Relationship Specialty Start Date End Date Pcp, Unknown PCP - General 05/03/21 documented as of this encounter Additional Source Comments The information contained in this document represents components of the legal health record. It is not the complete legal health record.[facility]
--- OUTSIDE RECORDS SUMMARY | 2025-01-18 05:06 | XMS_ITS | Encounter Summary ---
Author Organization [facility] Address [address] [place] [address] Phone Care Team Providers Care Pail Bailer Name Role Phone Pcp, Unknown Primary Care Provider Unavailabl e Encounter Details Date Type Department Care Team ([facility] st Contact Info) Description 05/29/2021 Procedure Pass [facility] Endoscopy Admitting Dept Virtual Department [address] [place] [address] Social History Tobacco Use Types Packs/Day Years [...] documented as of this encounter Care Teams Pail Bailer Relationship Specialty Start Date End Date Pcp, Unknown PCP - General 05/03/21 documented as of this encounter Additional Source Comments The information contained in this document represents components of the legal health record. It is not the complete legal health record.[facility]
== END 2025-01-17 13:45 | disposition home or self-care (01) ==
LOC: HO.HPS 13:09
PROVIDERS: PCP Internal Medicine Geriatric Medicine; Visit Provider Hospitalist
DX: J45.51 Severe persistent asthma with (acute) exacerbation (principal); T78.40XA Allergy, unspecified, initial encounter; K21.00 Gastro-esophageal reflux disease with esophagitis, without bleeding; L20.84 Intrinsic (allergic) eczema; J44.89 Other specified chronic obstructive pulmonary disease
CPT/HCPCS: 99214; G2211

== ENCOUNTER 2025-01-23 12:56 | Outpatient (AMB) | payer OTHER, SELFPAY ==
[2025-01-23 13:02] VITALS: BP 117/74; PULSE 75; BMI 24.6
--- NOTE | 2025-01-23 13:02 | MHC.OFFVIS ---
Vital Signs 01/23/25 13:02 Height 5 ft 3 in Weight 138 lb 14.259 oz BMI 24.6 BP 117/74 Blood Pressure Location Lt brachial Position Sitting Pulse 75 Intake Visit Reasons: 5m Intake Note: Kaitlin returns to in office follow up of US. CC: Patient c/o abdominal bloating, gas, and abdominal discomfort. She also states that sometimes she is up to 2 days without a BM. Gunner'S Mate G Required: No Gunner'S Mate G Services: Gunner'S Mate G Offered & Declined Accompanied by: Self / Same As Patient Allergies ciprofloxacin (From Cipro) Allergy (Intermediate, Verified 01/23/25 13:06) HIVES/ITCHING oxycodone (Percocet) Allergy (Intermediate, Verified 01/23/25 13:06) Hives Penicillins Allergy (Intermediate, Verified 01/23/25 13:06) HIVES/ITCHING simvastatin (Simvastatin) Allergy (Intermediate, Verified 01/23/25 13:06) HIVES/ITCHINIG vancomycin (Vancomycin) Allergy (Intermediate, Verified 01/23/25 13:06) HIVES/ITCHING latex Allergy (Mild, Verified 01/23/25 13:06) Rash milnacipran (From Savella) Allergy (Mild, Verified 01/23/25 13:06) Hives Sulfa (Sulfonamide Antibiotics) Allergy (Mild, Verified 01/23/25 13:06) Shortness of Breath dupilumab (From Dupixent Pen) Adverse Reaction (Intermediate, Verified 01/23/25 13:06) neuropathy HPI HPI 5m: Details: 69 yr old f w hx of cholecystectomy, here for f/u RECAP__initially saw [facility]--08/2019 She says she has a bacteria in her stomach ? h pylori. Significant bloating she could not eat. She had taken clarithromycin and Flagyl for 3- 4 days and began with nausea and vomiting. She finally had gone to the ED, Antibiotoic therapy discontinued despite GB taken out 1 yr ago she has simialr sx Her appetite is not great however she is not had any further vomiting, however continues with intermittent nausea, bloating and reflux though she discontinued omeprazole as well. She has very unstable BP- always in the ED. She is allergic to every antibiotic as well as anesthesia. Her daughter says that she needs to have monitoring whenever she is given any of the above. Her daughter was extremely concerned taking medications She did have a an abdominal ultrasound 08/08/19--fatty liver, otherwise ok LABS 08/2019--nml BMP, LFT< CBC, microcytosis EGD/colonoscopy--01/2020---patchy erythema, nml colon, bx with h pylori she was given quadruple therapy for h pylori subsequent H pylori breath test 04/2020---Negative, repeat H pylori 10/2021-- negATIVE GES--normal I also gave her linaclotide for constipation thought to be due to her medications she had BENITES and manometry at [facility] 04/2021--pos Demeeester, normal manometry IMAGING: CT 12/2019--- mild constipation, no acute findings US 2021- normal apart from mild aortic atherosclerosis US 10/2022--- aortic plaque seen, otherwise no acute findings She did have stool pos for norvovirus 09/2022 she also had fecal fat but nml panc elastase MRCP-- 08/23-- no filling defects in CBD, no masses CTe: 11/11/23- constipation, atherosclerosis, osteopenia, US 10/24: nodular liver steatosis INTERIM: she is recovering from sinusi infection on pred and antibiotics right now she has abdominal pain, mostly mid abdominal worse with food denies n/v she has bloating and gas EXAM: GENERAL: The patient is well developed and nontoxic. VITAL SIGNS:see workflow HEENT: Nonicteric sclerae, PERRLA, EOMI. Oropharynx clear. Moist mucous membranes. Conjunctivae appear well perfused. No thyroid mass. CHEST: Chest wall is nontender. HEART: Regular rate and rhythm without murmurs. LUNGS: b/l wheeze and tight chest ABDOMEN: Soft, positive bowel sounds, tender mid abdomen, no organomegaly. SKIN: No rash, no excessive bruising, petechiae, or purpura. NEUROLOGIC: Cranial nerves II-XII intact without motor/sensory deficit. psych--nml Assessment & Plan 1/Mid abdominal pain, undifferentiated --last CTe limited by constipation, albeti constipation itself maybe causing some of her sx PLAN: 1/ EGD for further assessment-- 2/ rept CTe with miralax for 1 week before 3/ I am not too convinced she has cirrhosis based on stone cold normal labs, will cont to monitor [facility] Medical History Asthma-COPD overlap syndrome Asthma exacerbation Abnormal electrocardiogram [ECG] [EKG] Chest pain Bleeding hemorrhoids Eczema VERA positive DVT (deep venous thrombosis) Tachycardia Dyspnea Sinusitis Rash URI (upper respiratory infection) History of anesthesia problem Osteoarthritis Fibromyalgia GERD (gastroesophageal reflux disease) Cervicalgia Depression History of vertigo Varicose vein of leg Chronic pain of left knee Allergic rhinitis Anxiety Asthma Migraine Surgical History History of esophagogastroduodenoscopy (EGD) History of repair of right rotator cuff Hx of bilateral breast reduction surgery Hx of hemorrhoidectomy H/O varicose vein ligation and stripping Hx of colonoscopy Hx of hysterectomy Hx of appendectomy Hx laparoscopic cholecystectomy Status post right rotator cuff repair Family History Father No problems noted. Mother Family history of high blood pressure Dementia Social History Household Members: None Housing: Apartment Do you presently have visiting nurse or other home services: No Alcohol intake: former Comment: pt uses cane as baseline Patient Tobacco Use Status: Never used Tobacco Second Hand Smoke Exposure: No Advance Directives Date on File: 04/03/18 service: No Current occupational status: unemployed Current occupation: Left Handed Physical Exam Vital Signs: Last Vital Signs Pulse 75 01/23/25 13:02 BP 117/74 01/23/25 13:02 BMI result Body Mass Index 24.6 Assessment & Plan Assessment & Plan (1) Postprandial abdominal bloating: Code(s): R14.0 - Abdominal distension (gaseous) Category: Medical Plan: as above Orders: Orders CT enterography Today R10.33 - Periumbilical pain Medications: New polyethylene glycol 3350 (Miralax) 17 grams PO DAILY 100 ea 0RF dicyclomine 10 mg PO BID 30 caps 0RF Coding Level of Care Code Est Pt Level 4 (89641) Diagnoses Postprandial abdominal bloating R14.0
--- OUTSIDE RECORDS SUMMARY | 2025-01-23 17:20 | XMS_ITS | Clinical Summary ---
Author Organization [facility] Address [address] [place] [phone] Phone Care Team Providers Care Solar Maintenance Technician Name Role Phone Pcp, Unknown Primary Care [...] topic Medical Devices Not on file Insurance [facility] MEDICARE [place] [address] [address] [place] [id number] MEDICARE REPLACEMENT GLENDA KELLER [id number] [facility] MEDICARE REPLACEMENT [facility] MEDICARE [place] [address] [place] [address] MEDICARE REPLACEMENT [facility] MEDICARE REPLACEMENT [facility] MEDICARE REPLACEMENT [facility] MEDICARE REPLACEMENT [facility] MEDICARE REPLACEMENT Care Teams Solar Maintenance Technician Relationship Specialty Start Date End Date Pcp, Unknown PCP - General 05/03/21 Additional Source Comments The information contained in this document represents components of the legal health record. It is not the complete legal health record.[facility]
--- OUTSIDE RECORDS SUMMARY | 2025-01-23 17:20 | XMS_ITS | Encounter Summary ---
Author Organization [employer] [facility] Address [address] [place] [address] 7 [place] [address] Care Team Providers Care Courtesy Driver Name Role Phone Name, Jay PHAM Primary Care Provider [phone] Reason for Visit * Reason Comments Med Refill Encounter Details Date Type Department Care Team ([facility] Contact Info) Description 05/07/2022 Refill [facility] [address] [place] [address] [phone] Name, MD Jay [address] [place] [phone] Social History Tobacco Use Types Packs/Day Years [...] Upcoming Encounters Date Type Department Care Team ([facility] Contact Info) Description 03/07/2025 3:15 PM EST Office Visit [facility] [address] [place] [address] [phone] Name, MD Jay [address] [place] [address] [phone] documented as of this encounter Visit Diagnoses Not on filedocumented in this encounter Care Teams Courtesy Driver Relationship Specialty Start Date End Date Name, MD Jay [address] [place] [address] PCP - General Family Medicine 03/02/18 documented as of this encounter
--- OUTSIDE RECORDS SUMMARY | 2025-01-23 17:20 | XMS_ITS | Encounter Summary ---
Author Organization [facility] Address [address] [place] [address] Phone Care Team Providers Care Sieve Maker Name Role Phone Pcp, Unknown Primary Care Provider Unavailabl e Encounter Details Date Type Department Care Team ([facility] st Contact Info) Description 05/29/2021 Procedure Pass [facility] Endoscopy Admitting Dept Virtual Department [address] [place] [address] Social History Tobacco Use Types Packs/Day Years [...] documented as of this encounter Care Teams Sieve Maker Relationship Specialty Start Date End Date Pcp, Unknown PCP - General 05/03/21 documented as of this encounter Additional Source Comments The information contained in this document represents components of the legal health record. It is not the complete legal health record.[facility]
--- OUTSIDE RECORDS SUMMARY | 2025-01-23 17:20 | XMS_ITS | Encounter Summary ---
Author Organization [facility] Address [address] [place] [phone] Phone Care Team Providers Care Cargo Broker Name Role Phone Pcp, Unknown Primary Care Provider Unavailabl e Encounter Details Date Type Department Care Team (Late st Contact Info) Description 05/28/2021 Procedure Pass [facility] Endoscopy Admitting Dept Virtual Department [address] [place] [address] Social History Tobacco Use Types Packs/Day Years [...] documented as of this encounter Care Teams Cargo Broker Relationship Specialty Start Date End Date Pcp, Unknown PCP - General 05/03/21 documented as of this encounter Additional Source Comments The information contained in this document represents components of the legal health record. It is not the complete legal health record.[facility]
--- OUTSIDE RECORDS SUMMARY | 2025-01-23 17:20 | XMS_ITS | Clinical Summary ---
Author Organization [employer] Address [address] [place] [address] 7 [place] [address] Care Team Providers Care Hematology Technologist Name Role Phone Name, Jay PHAM Primary Care Provider [phone] Allergies Active Allergy Reactions Criticality Noted Date [...] DEPARTMENT Provider, Generic External Data 01/08/2025 Refill [facility] [address] [place] [address] Jay Moore MD Osteopenia, unspecified location 12/21/2024 Telephone [facility] [address] [place] [address] Keyana Ledbetter [place] dec recalls 11/04/2024 1:00 PM EDT Office Visit [facility] [address] [place] [address] Jay Moore MD Severe persistent asthma, unspecified whether complicated (Primary Dx); Hypertension, unspecified type; Venous insufficiency; Varicose veins of lower extremity with inflammation, unspecified laterality 11/04/2024 Travel 11/03/2024 Telephone [facility] [address] [place], [place] [phone] Jay Moore MD Chart Prep 10/31/2024 Refill [facility] [address] [place] [address] Jay Moore MD from Last 3 Months Immunizations Immunization Administration Dates Next Due Influenza injectable quadriv alent IIV4 with preservative 12/12/2016,01/29/2016 Influenza, IIV3, injectable 03/25/2013, 1,03/04/2010 Novel [id number], preservative-free 05/14 PPD Test 06/24/2010 Pneumococcal Polysaccharide [...] EST Office Visit [facility] [address] [place] [phone] Name, MD Jay [address] [place] [address] Health Maintenance Due Date Last Done Comments [...] PM EST) Influenza A PCR NEGATIVE Negative [facility] Influenza B PCR NEGATIVE Negative [facility] Resp Syncy Virus RNA Qual PCR NEGATIVE Negative [facility] SARS COV2 PCR NEGATIVE Negative [facility] Comment:All test results mus t [...] use by authorized laboratories.Testing performed on the [employer] GeneXpert utilizingreal-time RT-PCR.All SARS CoV2 and positive influenza A/B results arereported to [facility]. 01/17/2025 1:08 PM EST 01/17/2025 1:39 PM EST us Generic External Data Provider LAB MICROBIOLOGY - GENERAL ORDERABLES Final Result Performing Organization Address City/State/[facility] Co de Phone Number [facility] [address] [place] [phone] * US Abdomen Comp w elastography (10/26/2024 8:13 AM EDT) Anatomical Region Laterality Modality Abdomen Ultrasound 10/26/2024 8:13 AM EDT Narrative 10/26/2024 8:42 AM EDT [address] [address] Ultrasound Report Signed Patient: Kaitlin Munguia MR#: [id number] 3 : 1955 Acct:[id number] Age/Sex: 69 / F ADM Date: 10/26/24 Loc: HO.US Attending Dr: Diana Boss MD Ordering Physician: Diana Boss MD Date of Service: 10/26/24 Procedure(s): US abdomen comp w elastography Accession Number(s): [id number] cc: Diana Boss MD; Name,Jay PHAM EXAMINATION: [...] in OV> 10/26/2439 DD/ 2 TD/TT: 10/26/24824 Peer Support Specialist: Procedure Note Donotuseinterpreter, Image - 10/26/2024 [place] [address] Ultrasound Report Signed Patient: Anish Munguia#: [id number] 3 : 5Acct:[id number] Age/Sex: 69 / FADM Date: 10/26/24 Loc: HO.US Attending Dr: Diana Boss MD Ordering Physician: Diana Boss MD Date of Service: 10/26/24 Procedure(s): US abdomen comp w elastography Accession Number(s): [id number] cc: Diana Boss MD; Name,Jay PHAM EXAMINATION: [...] OV> 10/26/2439 DD/ 2 TD/TT: 10/26/24 08 Peer Support Specialist: us [facility] External Provider IMG US PROCEDURES Edited Result - Final * BI Mammogram Screening Tomosynthesis Bilateral (10/05/2024 12:07 PM EDT) Anatomical Region Laterality Modality Breast Bilateral Mammography 10/05/2024 12:0 7 PM EDT Narrative 10/15/2024 6:28 PM EDT [address] [place], [place] [address] Mammography Report Signed Patient: Kaitlin Munguia MR#: [id number] 3 : 1955 Acct:[id number] Age/Sex: 69 / F ADM Date: 10/05/24 Loc: HO.MAMMO Attending Dr: Jay Moore MD Ordering Physician: Jay Moore MD Results: 2Benign Fi ndings Date of Service: 10/05/24 Follow Up: 1 Year From [facility] Mammogram Procedure(s): MM tomosynthesis screening BI Accession Number(s): [id number] cc: Jay Moore MD EXAMINATION: MM SCREENING [...] 10/15/24 1825 DD/ 1207 TD/TT: 10/05/24 1232 Peer Support Specialist: Procedure Note Donotuseinterpreter, Image - 10/15/2024 [facility] [address] [place] [address] Mammography Report Signed Patient: Anish Munguia#: [id number] 3 : 5Acct:[id number] Age/Sex: 69 / FADM Date: 10/05/24 Loc: HO.MAMMO Attending Dr: Jay Moore MD Ordering Physician: Jay Moore MDResults: 2Benign Fi ndings Date of Service: 10/05/24Follow Up: 1 Year From Orig inal Mammogram Procedure(s): MM tomosynthesis screening BI Accession Number(s): [id number] cc: Jay Moore MD EXAMINATION: MM SCREENING [...] 10/15/24 1825 DD/ 1207 TD/TT: 10/05/24 1232 Peer Support Specialist: us Jay Teresa PHAM [facility] BI PROCEDURES Edited Result - Final * Lipid Panel, Standard (04/28/2022 11:01 AM EST) Triglycerides 171 mg/dL [facility] Comment:Desirable Triglyceri de: less than 150 mg/dLBorderline High Triglyceride 150-199 mg/dLHigh Triglyceride: 200-499 mg/dLVery High Triglyceride: greater than or equal to 5OO mg/dL Cholesterol 259 mg/dL [facility] Comment:Desirable Cholestero l: less than 200 mg/dLBorderline High Cholesterol: 200-239 mg/dLHigh Cholesterol: greater than 239 mg/dL LDL Cholesterol Calculated 190 mg/dl [facility] Comment:Desirable LDL: less than 100 mg/dLNear Optimal/Above Optimal LDL: 110- 129 mg/dLBorderline High LDL: 130-159 mg/dLHigh LDL: 160-189 mg/dLVery High LDL: greater than or equal to 190 mg/dL HDL Cholesterol 35 mg/dL [facility] Comment:Desirable HDL: great er than 40 mg/dL Note: This HDL assay may give artificially low results in patients with liver disease. 04/28/2022 11:0 1 AM EST 04/28/2022 11:01 AM EST [facility] External Provider LAB BLO OD ORDERABLES Final Result [facility] [address] [place], [place] [phone] from Last 3 Months or Most Recently Relevant to Health Maintenance Insurance GLENDA KELLER [id number] * Guarantor: Kaitlin Munguia Account Type Relation to Patient Date of Phone Billing Address Personal/Family Self [address] Care Teams Hematology Technologist Relationship Specialty Start Date End Date Name, MD Jay [address] [place], [place] PCP - General Family Medicine 03/02/18
--- OUTSIDE RECORDS SUMMARY | 2025-01-23 17:20 | XMS_ITS | Encounter Summary ---
Author Organization [employer] Address [address] [facility] 7t [place] [address] Care Team Providers Care Bagger Meat Name Role Phone Name, Jay PHAM Primary Care Provider [phone] Reason for Visit * Reason Onset Date Comments Hospital Follow-up 12/15/2023 Encounter Details Date Type Department Care Team ([facility] Contact Info) Description 12/15/2023 Telephone [facility] [address] [place], [place] [phone] Name, MD Jay [address] [place] [address] Hospital Follow-up Social History Tobacco Use Types [...] from pt requesting a HDF appt. Hospital: [facility] Date of admission: 12/10/23 Discharge date: 12/14/23 Diagnosed: Asthma Attack (Latvian Speaker) documented in this encounter Plan of Treatment Upcoming Encounters Date Type Department Care Team (Late st Contact Info) Description 03/07/2025 3:15 PM EST Office Visit [facility] [address] [place] [phone] Name, MD Jay [address] [place] [phone] documented as of this encounter Visit Diagnoses Not on filedocumented in this encounter Additional Health Concerns Assessment Noted Time PHQ-9 Depression Total Score: 11 024 9:40 AM EDT documented as of this encounter Care Teams Bagger Meat Relationship Specialty Start Date End Date Name, MD Jay [address] [place] [phone] PCP - General Family Medicine 03/02/18 documented as of this encounter
== END 2025-01-23 13:35 | disposition home or self-care (01) ==
LOC: HO.HGI 12:56
PROVIDERS: PCP Internal Medicine Geriatric Medicine; Visit Provider Internal Medicine Gastroenterology
DX: R14.0 Abdominal distension (gaseous) (principal)
CPT/HCPCS: 99214

== ENCOUNTER → 2025-01-23 12:56 | Outpatient (BNVA) | payer OTHER, SELFPAY | PROVIDERS: PCP Internal Medicine Geriatric Medicine; Visit Provider Internal Medicine Gastroenterology | DX: R14.0 Abdominal distension (gaseous) (principal); R10.33 Periumbilical pain | CPT/HCPCS: 99212 ==